=== PATIENT | female | born 1990 | race Caucasian/White ===

== ENCOUNTER 2019-04-08 17:31 | Emergency (ER) | payer BC, MEDICAID, SELFPAY ==
[2019-04-08 17:56] VITALS: BP 144/106; PULSE 80; RESP 20; TEMP 36.8; O2SAT 98
--- NOTE | 2019-04-08 18:41 | ED.GENADULT ---
HPI - General Adult General Chief complaint: Upper Respiratory Infection <Live Weaver PA-C - Last Filed: 04/08/19 19:02> Stated complaint: URI SX <Live Weaver PA-C - Last Filed: 04/08/19 19:02> Time Seen by Provider: 04/08/19 18:07 <Live Weaver PA-C - Last Filed: 04/08/19 19:02> Source: patient <IFEOMA Dodson Last Filed: 04/08/19 19:02> Mode of arrival: ambulatory <Live Weaver PA-C - Last Filed: 04/08/19 19:02> Limitations: no limitations <Live Weaver PA-C - Last Filed: 04/08/19 19:02> History of Present Illness HPI narrative: Patient is a 28-year-old female who presents with 4 days duration of fever chills body aches cough ear pain denies any vomiting does note that it she has had a few loose stools. <Live Weaver PA-C - Last Filed: 04/08/19 19:02> Related Data Allergies/adverse reactions: Allergies Allergy/AdvReac Type Severity Reaction Status Date / Time amoxicillin Allergy Unknown RASH, Verified 12/13/17 18:02 DIFFICULTY BREATHING <Live Weaver PA-C - Last Filed: 04/08/19 19:02> Review of Systems Review of Systems: All systems reviewed & are unremarkable except as noted in HPI and below <Live Weaver PA-C - Last Filed: 04/08/19 19:02> [facility] Past Medical History Medical History: Medical History (Updated 04/08/19 @ 19:01 by Live Weaver PA-C) Diabetes mellitus Influenza Obesity <Live Weaver PA-C - Last Filed: 04/08/19 19:02> Exam Narrative: Exam Narrative: GENERAL: Well-appearing, obese, and in no acute distress. HEAD: Normocephalic, atraumatic. EYES: PERRLA and EOMI. ENT: Nares clear, no rhinorrhea or epistaxis. Mucous membranes moist. Oropharynx without tonsillar hypertrophy exudate or other lesions. Bilateral TMs pearly nielsen nonbulging CHEST: Clear to auscultation. No respiratory distress. No wheezes rales or rhonchi HEART: Regular rate and rhythm. No murmur heard. EXTREMITIES: Normal range of motion. No edema. SKIN: Warm, dry, no rash. NEURO: No focal deficits. Alert and oriented x3. PSYCH: Normal mood and affect. <Live Weaver PA-C - Last Filed: 04/08/19 19:02> Course Course Emergency Course: Patient in the room in no distress <Live Weaver PA-C - Last Filed: 04/08/19 19:02> Vital Signs Vital signs: Vital Signs Temperature 98.2 F 04/08/19 17:56 Pulse Rate 80 04/08/19 17:56 Respiratory Rate 20 04/08/19 17:56 Blood Pressure 144/106 H 04/08/19 17:56 Pulse Oximetry 98 04/08/19 17:56 Temperature 98.2 F 04/08/19 17:56 Pulse Rate 80 04/08/19 17:56 Respiratory Rate 20 04/08/19 17:56 Blood Pressure 144/106 H 04/08/19 17:56 Pulse Oximetry 98 04/08/19 17:56 <Live Weaver PA-C - Last Filed: 04/08/19 19:02> Vital Signs Temperature 98.2 F 04/08/19 17:56 Pulse Rate 80 04/08/19 17:56 Respiratory Rate 20 04/08/19 17:56 Blood Pressure 144/106 H 04/08/19 17:56 Pulse Oximetry 98 04/08/19 17:56 Temperature 98.2 F 04/08/19 17:56 Pulse Rate 80 04/08/19 17:56 Respiratory Rate 20 04/08/19 17:56 Blood Pressure 144/106 H 04/08/19 17:56 Pulse Oximetry 98 04/08/19 17:56 <Shana Montenegro MD - Last Filed: 04/08/19 22:05> Medical Decision Making MDM Narrative Medical decision making narrative: Patient with influenza in the room afebrile nontoxic-appearing no distress felt appropriate for outpatient reevaluation <IFEOMA Dodson Last Filed: 04/08/19 19:02> Vital Signs Vital Signs: Vital Signs Temperature 98.2 F 04/08/19 17:56 Pulse Rate 80 04/08/19 17:56 Respiratory Rate 20 04/08/19 17:56 Blood Pressure 144/106 H 04/08/19 17:56 Pulse Oximetry 98 04/08/19 17:56 Temperature 98.2 F 04/08/19 17:56 Pulse Rate 80 04/08/19 17:56 Respiratory Rate 20 04/08/19 17:56 Blood Pressure 144/106 H 04/08/19 17:56 Pulse Oximetry 98
== END 2019-04-08 19:09 | disposition home or self-care (01) ==
PROVIDERS: Emergency Provider General Practice; PCP Internal Medicine
DX: J10.1 Influenza due to other identified influenza virus with other respiratory manifestations (principal); E11.9 Type 2 diabetes mellitus without complications; E66.9 Obesity, unspecified; Z68.45 Body mass index [BMI] 70 or greater, adult
CPT/HCPCS: 87081; 87804; 87880; 99283

== ENCOUNTER 2019-04-10 08:32 | Inpatient (IN) | payer BC, MEDICAID, SELFPAY ==
[2019-04-10] VITALS (31 sets, daily range): BP systolic 116–173; BP diastolic 45–109; PULSE 95–127; RESP 24–54; TEMP 37.2–38.6; O2SAT 80–98; BMI 95.5
--- NOTE | ~2019-04-10 | XR_ITS ---
EXAMINATION: XR chest port-a-cath/central EXAM DATE: 04/10/2019 15:56 INDICATION: Central line placement. Respiratory failure. TECHNIQUE: Portable AP frontal chest x-ray was obtained. Comparison is made to prior examination from earlier same date. FINDINGS: There is a new right IJ venous line overlying expected position. Endotracheal and nasogast juan tubes are also in position. Again there is extensive bilateral edema and/or pneumonia. There are no sizable pleural effusions. There is no pneumothorax suspected. Cardiac silhouette is enlarged but stable in size compared to prior exam. The bones and soft tissues are unremarkable. IMPRESSION: 1. No evidence postprocedure pneumothorax. 2. Extensive bilateral edema and/or pneumonia. 3. Cardiomegaly. Reviewed, dictated and finalized at location A. R LINEMAN TECHNICIAN
--- NOTE | ~2019-04-10 | XR_ITS ---
EXAMINATION: XR chest 1V portable INDICATION: Pneumonia TECHNIQUE: Portable AP chest at 0503 hours COMPARISON: 04/14/2019 FINDINGS: The endotracheal tube ends approximately 8.4 cm above the edward. The nasogastric tube is f ollowed as far as the stomach. Its tip is beyond the inferior margin of the radiograph. A right inter nal jugular central venous catheter ends with its tip at the superior cavoatrial junction. There is s table cardiomegaly. Diffuse airspace opacities persist but have improved. No definite pleural effusio n or pneumothorax is identified. IMPRESSION: 1. Diffuse lung disease with interval improvement, consistent with pulmonary edema and/or pneumonia a nd/ARDS. 2. Endotracheal tube approximately 8.4 cm above the edward. Consider advancing. 3. Stable cardiomegaly. Reviewed, dictated and finalized at location A. ARCHITECT IMPRESSION: 1. Diffuse lung disease with interval improvement, consistent with pulmonary ed arabella and/or pneumonia and/ARDS. 2. Endotracheal tube approximately 8.4 cm above the edward. Consider advancing. 3. Stable cardiomegaly.
--- NOTE | ~2019-04-10 | XR_ITS ---
EXAMINATION: XR chest 1V portable DATE: 04/12/2019 05:56 INDICATION: Pneumonia. TECHNIQUE: A single frontal view of the chest was obtained. COMPARISON: Chest single view 04/11/2019, CT abdomen and pelvis 12/06/2016 FINDINGS: There are airspace opacities in all lung zones bilaterally. No pleural effusion or pneumoth orax. Cardiomegaly is noted. The endotracheal tube tip is 5.4 cm above the edward. The nasogastric tu be tip is in the stomach. A right internal jugular central venous catheter is seen with tip at the barakat perior cavoatrial junction. IMPRESSION: 1. Diffuse lung disease with slight improvement on the right, consistent with pulmonary edema versus pneumonia versus acute respiratory distress syndrome (ARDS). 2. Cardiomegaly. Reviewed, dictated and finalized at location A. ON ACREAGE MEASURER IMPRESSION: 1. Diffuse lung disease with slight improvement on the right, consistent with p ulmonary edema versus pneumonia versus acute respiratory distress syndrome (INA S). 2. Cardiomegaly.
--- NOTE | ~2019-04-10 | XR_ITS ---
EXAMINATION: XR chest 1V portable INDICATION: Repositioned endotracheal tube TECHNIQUE: Portable AP chest at 0809 hours COMPARISON: 0503 hours FINDINGS: The repositioned endotracheal tube ends 4.1 cm from the edward. The nasogastric tube is in the stomach. A right internal jugular central venous catheter ends with its tip in the distal superio r vena cava. Diffuse airspace opacities persist without significant change. No definite pleural effus ion or pneumothorax is identified. There is stable cardiomegaly. IMPRESSION: 1. Endotracheal tube advanced, now ending 4.1 cm above the edward. Otherwise, no significant change. Reviewed, dictated and finalized at location A. ILE FINISHER IMPRESSION: 1. Endotracheal tube advanced, now ending 4.1 cm above the edward. Otherwise, n o significant change.
--- NOTE | ~2019-04-10 | XR_ITS ---
EXAMINATION: XR chest 1V portable EXAM DATE: 04/10/2019 09:34 INDICATION: Shortness of breath. Flu. TECHNIQUE: Portable AP frontal chest x-ray was obtained. Comparison is made to prior examination from 10/01/2017. FINDINGS: There is cardiomegaly. There is extensive bilateral edema or pneumonia. No pneumothorax or sizable pleural effusion. Airspace disease is new compared to prior study. There are no osseous abnor malities identified. IMPRESSION: Cardiomegaly. Extensive bilateral edema or pneumonia. Reviewed, dictated and finalized at location A. SPORTATION SECURITY SCREENER
--- NOTE | ~2019-04-10 | XR_ITS ---
XR chest 1V portable 04/14/2019 05:40 Indication: Pneumonia. Procedure: AP portable chest Comparison: Comparison to multiple prior studies sequentially, with oldest reviewed study dated 04/10. Findings: Endotracheal tube tip approximately 5.9 cm above the edward. NG tube in the stomach. Right IJ central line tip in the SVC. Extensive bilateral airspace disease. Probable small effusions. No pn eumothorax. Impression: 1: No significant change to extensive bilateral airspace disease, most likely edema. Differential shellie gnosis includes pneumonia and ARDS. Reviewed, dictated and finalized at location A. SUPPORT REPRESENTATIVE Impression: 1: No significant change to extensive bilateral airspace disease, most likely e lucie. Differential diagnosis includes pneumonia and ARDS.
--- NOTE | ~2019-04-10 | XR_ITS ---
EXAMINATION: XR abdomen NG/feed tube insert EXAM DATE: 04/10/2019 13:59 INDICATION: Feeding tube placement. TECHNIQUE: Frontal projection(s) of the abdomen for interpretation. There is no prior study for elizabeth boswell. FINDINGS: Feeding tube tip overlies gastric antral region, adequate. There is suspicion of hepatospl enomegaly. Upper abdominal bowel gas pattern is unremarkable. Extensive airspace disease. IMPRESSION: 1. Feeding tube in position. 2. Suspicion of hepatosplenomegaly. Reviewed, dictated and finalized at location A. TIC TOY INVENTOR
--- NOTE | ~2019-04-10 | XR_ITS ---
EXAMINATION: XR chest ET placement EXAM DATE: 04/10/2019 13:59 INDICATION: Intubated, respiratory failure. TECHNIQUE: Portable AP frontal chest x-ray was obtained. Comparison is made to prior examination from earlier same day. FINDINGS: Endotracheal tube tip is 3-4 centimeters above the edward (ideal range is between 2 to 5 cm ). There is a nasogastric tube seen with tip collimated off the study, but below the left hemidiaphr agm. Extensive bilateral pneumonia and/or edema. There are no sizable pleural effusions. There is no pn eumothorax suspected. The cardiac silhouette is enlarged. The bones and soft tissues are unremark able. There is no significant interval change in airspace disease compared to prior exam. IMPRESSION: 1. ET tube in position. 2. Extensive bilateral edema and/or pneumonia. Reviewed, dictated and finalized at location A. TRIC OPERATOR
--- NOTE | ~2019-04-10 | XR_ITS ---
EXAMINATION: XR chest 1V portable INDICATION: Pneumonia TECHNIQUE: Portable AP chest at 0513 hours COMPARISON: 04/12/2019 FINDINGS: The endotracheal tube ends approximately 4.2 cm above the edward. The nasogastric tube is f ollowed as far as the stomach. Its tip is beyond the inferior margin of the radiograph. A right inter nal jugular central venous catheter ends with its tip at the superior cavoatrial junction. There is s table cardiomegaly. Diffuse airspace opacities persist with slight improvement in the left upper lung zone. No definite pleural effusion or pneumothorax is identified. IMPRESSION: 1. Diffuse lung disease with slight improvement in the left upper lung zone, consistent with pulmonar y edema and/or pneumonia and/or ARDS. 2. Stable cardiomegaly. Reviewed, dictated and finalized at location A. RAL PROCESSING TECHNICIAN IMPRESSION: 1. Diffuse lung disease with slight improvement in the left upper lung zone, co nsistent with pulmonary edema and/or pneumonia and/or ARDS. 2. Stable cardiomegaly.
--- NOTE | ~2019-04-10 | XR_ITS ---
EXAMINATION: XR chest 1V portable DATE: 04/11/2019 06:03 INDICATION: Pneumonia. TECHNIQUE: A single frontal view of the chest was obtained. COMPARISON: Chest single view 04/10/2019, CT abdomen and pelvis 12/06/2016 FINDINGS: Lung volumes are small. There are airspace opacities in all lung zones bilaterally. No pleu ral effusion or pneumothorax. The heart size is normal. The endotracheal tube tip is 4.6 cm above the edward. A right internal jugular central venous catheter is seen with tip at the superior cavoatrial junction. The nasogastric tube tip is beyond the inferior margin of the radiograph, but at least to the stomach. IMPRESSION: 1. Unchanged diffuse lung disease, consistent with pulmonary edema versus pneumonia versus acute resp iratory distress syndrome (ARDS). Reviewed, dictated and finalized at location A. ENTER WOODEN TANK ERECTING IMPRESSION: 1. Unchanged diffuse lung disease, consistent with pulmonary edema versus pneum onia versus acute respiratory distress syndrome (ARDS).
--- NOTE | 2019-04-10 08:52 | ED.SOB ---
HPI - SOB/Dyspnea General Chief Complaint: Shortness of Breath/Dyspnea Stated Complaint: SOB and chest pressure Time Seen by Provider: 04/10/19 08:41 Source: patient and RN notes reviewed Mode of arrival: ambulatory Limitations: no limitations History of Present Illness HPI Narrative: A 28 y/o female presents to the ED with worsening SOB for the past 2 days. She reports an associative cough. She denies any CP, N/V/D, or ABD pain. MD elicited complaint: shortness of breath Pertinent past history: asthma and diabetes Onset (ago): day(s) (2) Timing: progressively worsening Known history of: asthma and diabetes Associated symptoms: cough Related Data Allergies Allergy/AdvReac Type Severity Reaction Status Date / Time amoxicillin Allergy Unknown RASH, Verified 12/13/17 18:02 DIFFICULTY BREATHING Review of Systems Review of Systems: All systems reviewed & are unremarkable except as noted in HPI and below Cardiovascular: Cardiovascular: Denies chest pain Respiratory: Respiratory: Reports cough and Reports dyspnea Gastrointestinal: Gastrointestinal: Denies abdominal pain, Denies diarrhea, Denies nausea and Denies vomiting PMF Past Medical History Medical History Asthma Depression Diabetes mellitus GERD (gastroesophageal reflux disease) H/O: HTN (hypertension) Hypothyroid Influenza Obesity Sleep apnea Surgical History Surgical History No history of previous surgery Family History Family History (Updated 04/10/19 @ 12:41 by Tono Frank MD) Mother Diabetes mellitus Social History Social History (Updated 04/10/19 @ 12:42 by Tono Frank MD) Smoking packs per day: 1 Smoking cigarettes per day: 20.0 Smoking status: Current every day smoker Tobacco type: cigarettes Alcohol intake: current Drinks per week: 5 Alcohol use details: Drinks only occasionally Substance use: never Living arrangements: with family Gender identity (if verbalized by the patient): Female Spiritual care concerns: No Agree to blood products: Yes Exam Narrative: Exam Narrative: GENERAL: Well-appearing,MOrbidly obese , and in no acute distress. HEAD: Normocephalic, atraumatic. EYES: PERRLA and EOMI. ENT: Nares clear, . Mucous membranes moist. NECK: Supple. CHEST: Poor respiratory effort, decreased air entry HEART: Regular rate and rhythm. No murmur heard. Normal peripheral pulses. ABDOMEN: Soft, morbid truncal obesity. EXTREMITIES: Normal range of motion. No edema. SKIN: Warm, dry, no rash. NEURO: No focal deficits. Alert and oriented x3. PSYCH: Normal mood and affect. Course Course Emergency Course: Inform patient about her lab work, chest x-ray findings will admit her to intensive care unit. As patient is tachypneic as well as hypoxic Consultations Consultation #1: Discussed case with Dr. Frank (Hospitalist). Accpets the pt. Date: 04/10/19 Time: 10:20 Consultation #2: Discussed case with Dr. Conner (American Indian Studies Professor). Accepts the pt to the ICU. Date: 04/10/19 Time: 11:06 Vital Signs Vital signs: Vital Signs Temperature 38.1 C H 04/10/19 08:44 Pulse Rate 124 H 04/10/19 08:44 Respiratory Rate 32 H 04/10/19 08:44 Blood Pressure 173/96 H 04/10/19 08:44 Pulse Oximetry 80 L 04/10/19 08:44 Temperature 38.1 C H 04/10/19 08:44 Pulse Rate 106 H 04/10/19 13:08 Respiratory Rate 38 H 04/10/19 13:08 Blood Pressure 137/65 04/10/19 13:08 Pulse Oximetry 94 04/10/19 13:08 MDM - SOB/Dyspnea Lab Data Result diagrams: 04/10/19 09:09 04/10/19 09:09 Labs: Lab Results 04/10/19 04/10/19 04/10/19 Range/Units 09:09 09:09 10:20 WBC 3.5 L (4.5-10.0) K/mm3 RBC 4.88 (4.2-5.4) M/mm3 Hgb 12.7 (12.0-15.0) g/dL Hct 42.1 (37.0-47.0) % MCV 86.3 (80-100) fl MCH 26.0 (26-34) pg MCHC 30.2 L (32-36) g/dl
[2019-04-10] MEDS: IPRATROPIUM BR 0.02% INH SOLN 0.5 MG/2.5 ML VIAL INHALATION ×3 (09:20→20:31)
[2019-04-10] MEDS: ALBUTEROL SULFATE NEB 2.5 MG/0.5 ML INH 5 MG INHALATION ×3 (09:20→20:31)
[2019-04-10 09:22] LABS: Basophils Percent Auto 0.3 % (0.2-1.2); Hematocrit 42.1 % (37.0-47.0); Hemoglobin 12.7 g/dL (12.0-15.0); Immature Granulocyte Absolute 0.06 K/mm3 (0.00-0.031); Immature Granulocyte Percent A 1.7 % (0-0.5); Lymphocytes Absolute Auto 0.68 K/mm3 (0.9-3.2); Lymphocytes Percent Auto 19.3 % (18.3-44.2); Mean Corpuscular HGB Conc 30.2 g/dl (32-36); Mean Corpuscular Volume 86.3 fl (80-100); Mean Platelet Volume 12.3 fl (7.4-10.4); Monocytes Absolute Auto 0.1 K/mm3 (0.1-0.6); Monocytes Percent Auto 2.8 % (2.6-8.5); Neutrophils Absolute Auto 2.7 K/mm3 (1.3-6.7); Neutrophils Percent Auto 75.9 % (45.5-73.1); Platelet Count Result 176 k/mm3 (150-375); Red Blood Count 4.88 M/mm3 (4.2-5.4); Red Cell Distribution Width 14.1 % (11.5-14.5); White Blood Count 3.5 K/mm3 (4.5-10.0)
[2019-04-10 09:38] LABS: Alanine Aminotransferase 25 U/L (4-35); Albumin Level 3.9 g/dL (3.5-5.1); Alkaline Phosphatase 109 U/L (38-126); Aspartate Amino Transferase 43 U/L (14-36); Bilirubin,Total 0.3 mg/dL (0.2-1.3); Blood Urea Nitrogen 7 mg/dL (7-17); Calcium 8.6 mg/dL (8.4-10.2); Carbon Dioxide 25 mmol/L (22-30); Chloride 97 mmol/L (98-107); Estimated Glomerular Filt Rate > 60; Glucose 264 mg/dL (65-105); Potassium 4.5 mmol/L (3.4-5.0); Sodium 136 mmol/L (137-145)
[2019-04-10 09:40] LABS: NT Pro B Type Natriuretic Pept 143 PG/ML (5-100)
[2019-04-10] MEDS: methylPREDNISolone SOD SUCC 125 MG VIAL IV PUSH (10:24)
[2019-04-10 10:47] LABS: Lactic Acid 1.2 mmol/L (0.7-2.1)
[2019-04-10 11:12] LABS: Alveolar/Arterial O2 Gradient 228.1 mmHg; Fractional Inspired Oxygen 44 %; HCO3 ABG 22.2 mEq/l (22.0-26.0); Oxygen Content ABG 14.9 %vol (16.0-22.0); Oxyhemoglobin 80.9 % THb (90.0-100.0); PCO2 ABG 36.2 mmHg (35.0-45.0); PO2 FiO2 Ratio Arterial Blood 1.01 %; Total Hemoglobin 13.1 g/dL (12.0-18.0); pH ABG 7.405 (7.350-7.450)
[2019-04-10 11:15] LABS: Device NASAL CANNULA; Modified Allen's Test Pass; PO2 ABG 44.4 mmHg (80.0-100.0); Site Drawn RIGHT RADIAL
--- NOTE | 2019-04-10 11:40 | PC.NURSE ---
Called to give report. Spoke with Sonia who states that the receiving nurse was in another room and will call me back.
--- NOTE | 2019-04-10 12:34 | PM.IMHP ---
H&P: HPI History of Present Illness Chief complaint: pneumonia Narrative: Claudia Delgado is a 28 year old female who was in her usual state of health until about 1 week ago. She began to have cough congestion and mild chest pain with coughing. She had hot flashes but no documented fevers. No chills. No sweats. Because of the persistent cough that was worsening and productive of green sputum she went to an urgent care where she was diagnosed with influenza B. Because the length of her symptoms she was treated symptomatically. She developed diarrhea a few times each day but no nausea vomiting. However she continued to worsen. Sputum thickened. Chest was hurting more with coughing. She was more short of breath even at rest. Therefore she presented to the emergency department. 1-2 weeks ago her niece had pneumonia and she was exposed to the knees. The knees were reportedly did not have influenza. She does smoke 1 pack per day. She denied any recent travel. She denied any hemoptysis, palpitations, syncope, presyncope, or lower extremity swelling. Review of Systems Review of Systems: All systems reviewed & are unremarkable except as noted in HPI and below PMFSH Past Medical History Medical History Asthma Depression Diabetes mellitus GERD (gastroesophageal reflux disease) H/O: HTN (hypertension) Hypothyroid Influenza Obesity Sleep apnea Surgical History Surgical History No history of previous surgery Family History Family History (Updated 04/10/19 @ 12:41 by Tono Frank MD) Mother Diabetes mellitus Social History Social History (Updated 04/10/19 @ 12:42 by Tono Frank MD) Smoking packs per day: 1 Smoking cigarettes per day: 20.0 Smoking status: Current every day smoker Tobacco type: cigarettes Alcohol intake: current Alcohol use details: Drinks only occasionally Substance use: never Living arrangements: with family Meds Home Medications and Allergies Home Medications Medication Instructions Recorded Confirmed Type ibuprofen [IBU] 600 mg PO TID PRN #7 tablet 04/08/19 Rx Allergies Allergy/AdvReac Type Severity Reaction Status Date / Time amoxicillin Allergy Unknown RASH, Verified 12/13/17 18:02 DIFFICULTY BREATHING Vital Signs Vital Signs - 24 hr 04/10/19 08:44 04/10/19 08:48 04/10/19 08:55 Temperature 100.6 F H Pulse Rate 124 H 124 H 121 H Respiratory Rate 32 H 37 H Blood Pressure 173/96 H Pulse Oximetry 80 L 86 L 04/10/19 09:00 04/10/19 09:01 04/10/19 09:02 Temperature Pulse Rate 123 H 123 H 121 H Respiratory Rate 45 H 29 H 38 H Blood Pressure 165/109 H Pulse Oximetry 83 L 89 L 87 L 04/10/19 09:23 04/10/19 09:26 04/10/19 11:16 Temperature Pulse Rate 124 H 127 H 115 H Respiratory Rate 28 H 25 H 45 H Blood Pressure 149/83 H Pulse Oximetry 94 Exam Narrative: Exam Narrative: GENERAL: Morbidly obese young adult female who is in moderate degree of respiratory distress and wearing a BiPAP mask HEENT: EOMI, PERRL, pharyngeal mucosa pink and intact NECK: No JVD, adenopathy, or thyromegaly CHEST: Tachypneic. Coarse rhonchi and expiratory wheezes throughout. Scattered crackles. HEART: NL S1/S2, regular, no murmur ABDOMEN: BS+, soft, nontender, no mass, no bruits EXTREMITIES: No cyanosis, edema, or clubbing NEUROLOGIC: CN intact and symmetric to inspection. MUSCULOSKELETAL: Tone and strength symmetric. PSYCH: Alert. Oriented to person, place, and time. H&P: Results Labs Labs: Short CBC 04/10/19 Range/Units 09:09 WBC 3.5 L (4.5-10.0) K/mm3 Hgb 12.7 (12.0-15.0) g/dL Hct 42.1 (37.0-47.0) % Plt Count 176 (150-375) k/mm3 [facility] 04/10/19 09:09 Sodium 136 L Potassium 4.5 Chloride 97 L Carbon Dioxide 25 BUN 7 Creatinine 0.60 L Glucose 264 H Calcium 8.6 Liver F
--- NOTE | 2019-04-10 13:00 | ADMGEN ---
This patient, Claudia Delgado, was admitted to Intensive Care Unit-5. Patient/family oriented to hospital policies and general routines including ID bracelet, bed and alarms, visiting hours, pain management, procedures, bathroom and other care routines, personal items, smoking policy, room service/diet, and visiting hours. Valuables list has been completed. Information on how to activate the Rapid Response Team has been discussed. Patient/Family are encouraged to report perceived risks to care and to ask questions if they do not understand what they are told or what they should do.
--- NOTE | 2019-04-10 13:11 | WPDCNINT ---
Assessment and Plan Assessment and plan (1) Acute respiratory failure with hypoxemia: Code(s): J96.01 - Acute respiratory failure with hypoxia Status: Acute Assessment and Plan: patient presented with pneumonia, influenza B. Diffuse infiltrates on chest x-ray requiring intubation on 04/10/2019 - patient placed on low tidal volume and high peep strategy for possible ARDS physiology - patient on propofol and Versed infusion, will maintained RASS of -2 - ABGs have been ordered (2) Community acquired pneumonia: Qualifiers: Laterality: unspecified laterality Qualified Code(s): J18.9 - Pneumonia, unspecified organism Code(s): J18.9 - Pneumonia, unspecified organism Status: Acute Assessment and Plan: patient with community-acquired pneumonia, continue vancomycin and cefepime for now - likely post influenza pneumonia. - continues steroids - continue mechanical ventilation (3) Influenza B: Code(s): J10.1 - Influenza due to other identified influenza virus with other respiratory manifestations Status: Acute Assessment and Plan: patient given 1 dose of Peramivir (4) Hypothyroid: Qualifiers: Hypothyroidism type: acquired Qualified Code(s): E03.9 - Hypothyroidism, unspecified Code(s): E03.9 - Hypothyroidism, unspecified Status: Acute Assessment and Plan: will continue levothyroxine (5) Hypertension, essential: Code(s): I10 - Essential (primary) hypertension Status: Acute Assessment and Plan: will hold all anti hypertensives at this time (6) Diabetes mellitus: Qualifiers: Diabetes mellitus type: type 2 Diabetes mellitus senior living insulin use: without senior living use Diabetes mellitus complication status: with hyperglycemia Qualified Code(s): E11.65 - Type 2 diabetes mellitus with hyperglycemia Code(s): E11.9 - Type 2 diabetes mellitus without complications Status: Acute Assessment and Plan: Accu-Cheks and sliding scale insulin (7) DVT prophylaxis: Code(s): Z29.9 - Encounter for prophylactic measures, unspecified Status: Acute Assessment and Plan: Lovenox Additional Plan discussed with patient prior to intubation. Code status: Full code Critical care time spent: 54 minutes Due to a high probability of clinically significant, life threatening deterioration, the patient required my highest level of preparedness to intervene emergently and I personally spent this critical care time directly and personally managing the patient. This critical care time included obtaining a history; examining the patient; pulse oximetry; ordering and review of studies; arranging urgent treatment with development of a management plan; evaluation of patient's response to treatment; frequent reassessment; and discussions with other providers. It was exclusive of separately billable procedures and treating other patients and teaching time. Please see Assessment and Plan section and the rest of the note for further information on patient assessment and treatment Pharmacist In Charge Consult Note Consult date: 04/10/19 Time Seen: 13:01 Reason for consult: diffuse bilateral pneumonia, acute respiratory failure requiring intubation on 04/10/2019, Influenza B positive HPI: Claudia Delgado is a 28 year old female with past medical history of asthma, depression, anxiety, diabetes, GERD, history of essential hypertension, hyper hypothyroidism, sleep apnea presented to the ED on 04/10/2019 with complains of cough, congestion and difficulty breathing. She denies any fevers, chills or sweats. shortness of breath has been worsening with productive green sputum, patient went to an urgent care which she was diagnosed with influenza B. In the ED patient was given Peramivir IV 600 mg x 1 patient was placed on BiPAP she was hypoxic and transfer the ICU for further management. In the IC
--- NOTE | 2019-04-10 13:41 | PM.OP ---
Procedure Note - Brief Procedure Note - Brief Date of procedure: 04/10/19 Pre-op diagnosis: pneumonia Post-op diagnosis: same Procedure performed: emergent intubation Description of procedure: called to icu rm 5 emergently to intubate pt with respiratory failure. Attempt already made by ICU attending. Airway bloody, front incisors loose 80% out of gum. glidescope blade changed to mac 4. vent to 100%. good visualization with glidescope intubated one pass with stylet. vss. secured at 21cm. care assumed by icu attending. Implants: 7.5ett Surgeon: Reddy Avila MD Estimated blood loss (mL): 0 Complications: No immediate complications Condition: stable Disposition: ICU
[2019-04-10] MEDS: MIDAZOLAM HCL 50 MG in DEXTROSE 5% 90 ML IV CONT (14:45)
--- NOTE | 2019-04-10 15:36 | P.PCNBED_ITS ---
Procedures Central Line Placement: Right IJ: Discussed w/ patient and/or surrogate, the non-emergent placement of a central venous catheter, including its clinical necessity/indication & associated potential risks & complications.: Yes The patient and/or surrogate understand(s) and acknowledge(s) the need to proceed with central venous catheter insertion as an important element of the patient's clinical management.: Yes Emergently Placed - (Given emergent patient conditions, temporal constraints may not have permitted and aforementioned informed consent.): No Central Line Date: 04/10/19 Central Line Time: 15:37 Pre-procedural Time-Out was completed immediately before starting the procedure and confirmed: Patient Identification, Site, Procedure, Patient Position and the Availability of Requisite Equipment.: Yes Patient Position: supine Patient placed on monitor/pulse ox: Yes Provider Prep: mask, sterile gown, Max. sterile barrier precautions, cap and hand hygiene Central line prep: Chlorhexidine scrub Local anesthesia used: lidocaine 1% Amount of anesthesia used (ml): 3 Ultrasound used for placement: Yes Central line lumen inserted: triple Luxembourgish: 16 Length (cm): 16 Depth of Insertion (cm): 16 Post procedure: sutured in place, good blood return, all ports aspirated, flushed, capped, tegaderm, hemostatic disc, antimicrobial disc and aseptic technique maintained throughout procedure Post procedure x-ray: tip of catheter in good position and no pneumothorax seen Patient tolerated procedure: well Complications: none
[2019-04-10] MEDS: MIDAZOLAM HCL 2 MG/2 ML VIAL 4 MG ×2 (15:55→15:57)
[2019-04-10] MEDS: RAPID SEQUENCE INTUBATION KIT 1 EACH ×2 (15:55→15:57)
[2019-04-10] MEDS: MIDAZOLAM HCL 2 MG/2 ML VIAL (15:55)
[2019-04-10] MEDS: MIDAZOLAM HCL 2 MG/2 ML VIAL 10 MG IV PUSH (15:57)
[2019-04-10] MEDS: PROPOFOL IV EMULSION 100 ML 32.1 MG (15:59)
[2019-04-10] MEDS: INSULIN GLARGINE (*BKC) 100 UNITS/ML 33 UNITS SUB-Q (16:05)
[2019-04-10] MEDS: INSULIN ASPART (*BKC) 100 UNITS/ML SUB-Q (16:05)
[2019-04-10] MEDS: methylPREDNISolone SOD SUCC 125 MG VIAL 60 MG IV PUSH ×2 (16:10→21:25)
[2019-04-10 16:13] LABS: Glucose Point of Care 352 (65-105)
[2019-04-10 16:18] LABS: Alveolar/Arterial O2 Gradient 575.6 mmHg; Base Excess ABG -3.6 mEq/l (+/-2.0); Fractional Inspired Oxygen 100 %; HCO3 ABG 24.4 mEq/l (22.0-26.0); Oxygen Content ABG 18.1 %vol (16.0-22.0); Oxygen Saturation ABG 93.8 % (95.0-100.0); Oxyhemoglobin 93.3 % THb (90.0-100.0); PO2 ABG 80.4 mmHg (80.0-100.0); Total Hemoglobin 13.8 g/dL (12.0-18.0)
[2019-04-10 16:20] LABS: Device VENTILATOR; Modified Allen's Test Pass; Site Drawn RIGHT RADIAL
[2019-04-10 16:21] LABS: Arterial Blood Gas Minute Volume 0 LPM; Arterial Blood Gas PEEP 12 cmH2O; Arterial Blood Gas Pressure Support 0 cmH2O; Arterial Blood Gas Tidal Volume 350 ml; Arterial Blood Gas Vent Mode CMV; Arterial Blood Gas Ventilator rate 24 /MIN; Peak Inspiratory Pressure 0 cmH2O
[2019-04-10] MEDS: MIDAZOLAM HCL 50 MG in DEXTROSE 5% 90 ML 12 MG IV CONT (22:27)
[2019-04-10 23:59] LABS: Glucose Point of Care 390 (65-105)
[2019-04-11] VITALS (38 sets, daily range): BP systolic 105–129; BP diastolic 42–67; PULSE 93–131; RESP 24–29; TEMP 36.9–38.6; O2SAT 92–97; BMI 94.9
[2019-04-11] MEDS: INSULIN ASPART (*BKC) 100 UNITS/ML SUB-Q
[2019-04-11] MEDS: ALBUTEROL SULFATE NEB 2.5 MG/0.5 ML INH 5 MG INHALATION ×4 (02:47→20:29)
[2019-04-11] MEDS: IPRATROPIUM BR 0.02% INH SOLN 0.5 MG/2.5 ML VIAL INHALATION ×4 (02:47→20:30)
[2019-04-11] MEDS: methylPREDNISolone SOD SUCC 125 MG VIAL 60 MG IV PUSH ×2 (03:45→09:14)
[2019-04-11 04:23] LABS: Alveolar/Arterial O2 Gradient 506.4 mmHg; Carboxyhemoglobin 0.1 % THb (0-2.0); Fractional Inspired Oxygen 90 %; HCO3 ABG 25.6 mEq/l (22.0-26.0); Methemoglobin ABG 0.5 %THb (0-1.5); Oxygen Content ABG 18.1 %vol (16.0-22.0); Oxygen Saturation ABG 87.1 % (95.0-100.0); Oxyhemoglobin 90.9 % THb (90.0-100.0); PO2 ABG 65.1 mmHg (80.0-100.0); PO2 FiO2 Ratio Arterial Blood 0.72 %; Reduced Hemoglobin 8.5 %THb (0-5.0); Total Hemoglobin 14.2 g/dL (12.0-18.0)
[2019-04-11 04:26] LABS: Device VENTILATOR; Modified Allen's Test Pass; PCO2 ABG 68.5 mmHg (35.0-45.0); Site Drawn LEFT RADIAL; pH ABG 7.191 (7.350-7.450)
[2019-04-11 04:27] LABS: Arterial Blood Gas PEEP 12 cmH2O; Arterial Blood Gas Tidal Volume 350 ml; Arterial Blood Gas Vent Mode CMV; Arterial Blood Gas Ventilator rate 24 /MIN
[2019-04-11 05:09] LABS: Hematocrit 40.4 % (37.0-47.0); Hemoglobin 12.2 g/dL (12.0-15.0); Immature Granulocyte Absolute 0.05 K/mm3 (0.00-0.031); Immature Granulocyte Percent A 0.7 % (0-0.5); Lymphocytes Absolute Auto 0.57 K/mm3 (0.9-3.2); Lymphocytes Percent Auto 8.2 % (18.3-44.2); Mean Corpuscular HGB Conc 30.2 g/dl (32-36); Mean Corpuscular Hemoglobin 26.5 pg (26-34); Mean Corpuscular Volume 87.8 fl (80-100); Mean Platelet Volume 12.1 fl (7.4-10.4); Monocytes Absolute Auto 0.2 K/mm3 (0.1-0.6); Monocytes Percent Auto 2.9 % (2.6-8.5); Neutrophils Absolute Auto 6.1 K/mm3 (1.3-6.7); Neutrophils Percent Auto 88.2 % (45.5-73.1); Platelet Count Result 181 k/mm3 (150-375); Red Cell Distribution Width 13.9 % (11.5-14.5)
[2019-04-11 05:23] LABS: Lactic Acid 0.9 mmol/L (0.7-2.1)
[2019-04-11 05:28] LABS: Hemoglobin A1C 9.4 % (<5.7)
[2019-04-11 05:32] LABS: Blood Urea Nitrogen 13 mg/dL (7-17); Calcium 7.7 mg/dL (8.4-10.2); Carbon Dioxide 29 mmol/L (22-30); Chloride 94 mmol/L (98-107); Estimated Glomerular Filt Rate > 60; Glucose 467 mg/dL (65-105); Magnesium 1.9 mg/dL (1.6-2.3); Phosphorus 4.4 mg/dL (2.5-4.5); Potassium 5.6 mmol/L (3.4-5.0); Sodium 132 mmol/L (137-145)
[2019-04-11 05:59] LABS: Glucose Point of Care 453 (65-105)
[2019-04-11] MEDS: INSULIN ASPART (*BKC) 100 UNITS/ML 10 UNITS SUB-Q (06:16)
[2019-04-11] MEDS: MIDAZOLAM HCL 50 MG in DEXTROSE 5% 90 ML 12 MG IV CONT (06:54)
[2019-04-11 07:25] LABS: Glucose Point of Care 460 (65-105)
[2019-04-11] MEDS: INSULIN GLARGINE (*BKC) 100 UNITS/ML 33 UNITS SUB-Q (07:33)
[2019-04-11] MEDS: PANTOPRAZOLE SODIUM IV 40 MG VIAL IV PUSH (07:36)
[2019-04-11] MEDS: ENOXAPARIN 40 MG/0.4 ML SYRINGE SUB-Q (07:36)
[2019-04-11 07:38] LABS: Alveolar/Arterial O2 Gradient 513.1 mmHg; Base Excess ABG -2.1 mEq/l (+/-2.0); Fractional Inspired Oxygen 90 %; HCO3 ABG 25.8 mEq/l (22.0-26.0); Oxygen Content ABG 17.3 %vol (16.0-22.0); Oxygen Saturation ABG 90.8 % (95.0-100.0); Oxyhemoglobin 92.5 % THb (90.0-100.0); PCO2 ABG 58.5 mmHg (35.0-45.0); PO2 ABG 68.6 mmHg (80.0-100.0); PO2 FiO2 Ratio Arterial Blood 0.76 %; Total Hemoglobin 13.3 g/dL (12.0-18.0)
[2019-04-11 07:41] LABS: Device VENTILATOR; Modified Allen's Test Pass; Site Drawn RIGHT RADIAL; pH ABG 7.263 (7.350-7.450)
[2019-04-11 07:42] LABS: Arterial Blood Gas Minute Volume 0 LPM; Arterial Blood Gas PEEP 12 cmH2O; Arterial Blood Gas Pressure Support 0 cmH2O; Arterial Blood Gas Tidal Volume 350 ml; Arterial Blood Gas Vent Mode CMV; Arterial Blood Gas Ventilator rate 28 /MIN; Peak Inspiratory Pressure 0 cmH2O
[2019-04-11 08:06] LABS: Blood Urea Nitrogen 15 mg/dL (7-17); Calcium 7.7 mg/dL (8.4-10.2); Carbon Dioxide 29 mmol/L (22-30); Chloride 92 mmol/L (98-107); Estimated Glomerular Filt Rate > 60; Glucose 463 mg/dL (65-105); Potassium 5.6 mmol/L (3.4-5.0); Sodium 132 mmol/L (137-145)
--- NOTE | 2019-04-11 08:41 | P.PNIM_ITS ---
Progress Note: A&P Assessment and Plan (1) Community acquired pneumonia: Qualifiers: Laterality: unspecified laterality Qualified Code(s): J18.9 - Pneumonia, unspecified organism Code(s): J18.9 - Pneumonia, unspecified organism Status: Acute Assessment and Plan: * Post influenza B * This may be viral, secondary bacterial, or ARDS * Vancomycin, cefepime, 1 dose of Rapivab 04/10 * IV steroids * Bronchodilators * Ventilatory support * Pulmonary toilet (2) Acute respiratory failure with hypoxemia: Code(s): J96.01 - Acute respiratory failure with hypoxia Status: Acute Assessment and Plan: * Due to influenza B with possible postviral bacterial pneumonia, asthma exacerbation, possible ARDS * Tx as above (3) Asthma exacerbation: Qualifiers: Asthma severity: severe Asthma persistence: persistent Qualified Code(s): J45.51 - Severe persistent asthma with (acute) exacerbation Code(s): J45.901 - Unspecified asthma with (acute) exacerbation Status: Acute Assessment and Plan: * Due to influenza with superimposed pneumonia * Tx as above (4) Hypertension, essential: Code(s): I10 - Essential (primary) hypertension Status: Acute Assessment and Plan: * Hold antihypertensives and monitor (5) Influenza B: Code(s): J10.1 - Influenza due to other identified influenza virus with other respiratory manifestations Status: Acute Assessment and Plan: * Likely too late in the course for antivirals (6) Restrictive lung disease: Code(s): J98.4 - Other disorders of lung Status: Acute Assessment and Plan: * Due to morbid obesity (7) Sleep apnea: Qualifiers: Sleep apnea type: obstructive Qualified Code(s): G47.33 - Obstructive sleep apnea (adult) (pediatric) Code(s): G47.30 - Sleep apnea, unspecified Status: Acute Assessment and Plan: * ventilatory support (8) Hypothyroid: Qualifiers: Hypothyroidism type: acquired Qualified Code(s): E03.9 - Hypothyroidism, unspecified Code(s): E03.9 - Hypothyroidism, unspecified Status: Acute Assessment and Plan: * Continue levothyroxine (9) GERD (gastroesophageal reflux disease): Qualifiers: Esophagitis presence: esophagitis presence not specified Qualified Code(s): K21.9 - Gastro-esophageal reflux disease without esophagitis Code(s): K21.9 - Gastro-esophageal reflux disease without esophagitis Status: Acute Assessment and Plan: * PPI for GI prophylaxis (10) Diabetes mellitus: Qualifiers: Diabetes mellitus type: type 2 Diabetes mellitus hobber insulin use: without hobber use Diabetes mellitus complication status: with hyperglycemia Qualified Code(s): E11.65 - Type 2 diabetes mellitus with hyperglycemia Code(s): E11.9 - Type 2 diabetes mellitus without complications Status: Acute Assessment and Plan: * 04/10 Blood sugar up to 476 * IV insulin Subjective Date/time seen: 04/11/19 08:41 Interval history: Elective intubation last evening due to tachypnea with severe dyspnea hypoxia and diffuse pulmonary infiltrates. Currently sedated and paralyzed. Review of Systems Review of Systems: ROS unobtainable: unobtainable due to mental condition Exam Narrative: Exam Narrative: GENERAL: Morbidly obese young adult female HEENT: EOMI, PERRL, pharyngeal mucosa pink and intact. ET tube in place
--- NOTE | 2019-04-11 08:41 | PM.IMPN ---
Progress Note: A&P Assessment and Plan (1) Community acquired pneumonia: Qualifiers: Laterality: unspecified laterality Qualified Code(s): J18.9 - Pneumonia, unspecified organism Code(s): J18.9 - Pneumonia, unspecified organism Status: Acute Assessment and Plan: Post influenza B This may be viral, secondary bacterial, or ARDS Vancomycin, cefepime, 1 dose of Rapivab 04/10 IV steroids Bronchodilators Ventilatory support Pulmonary toilet (2) Acute respiratory failure with hypoxemia: Code(s): J96.01 - Acute respiratory failure with hypoxia Status: Acute Assessment and Plan: Due to influenza B with possible postviral bacterial pneumonia, asthma exacerbation, possible ARDS Tx as above (3) Asthma exacerbation: Qualifiers: Asthma severity: severe Asthma persistence: persistent Qualified Code(s): J45.51 - Severe persistent asthma with (acute) exacerbation Code(s): J45.901 - Unspecified asthma with (acute) exacerbation Status: Acute Assessment and Plan: Due to influenza with superimposed pneumonia Tx as above (4) Hypertension, essential: Code(s): I10 - Essential (primary) hypertension Status: Acute Assessment and Plan: Hold antihypertensives and monitor (5) Influenza B: Code(s): J10.1 - Influenza due to other identified influenza virus with other respiratory manifestations Status: Acute Assessment and Plan: Likely too late in the course for antivirals (6) Restrictive lung disease: Code(s): J98.4 - Other disorders of lung Status: Acute Assessment and Plan: Due to morbid obesity (7) Sleep apnea: Qualifiers: Sleep apnea type: obstructive Qualified Code(s): G47.33 - Obstructive sleep apnea (adult) (pediatric) Code(s): G47.30 - Sleep apnea, unspecified Status: Acute Assessment and Plan: ventilatory support (8) Hypothyroid: Qualifiers: Hypothyroidism type: acquired Qualified Code(s): E03.9 - Hypothyroidism, unspecified Code(s): E03.9 - Hypothyroidism, unspecified Status: Acute Assessment and Plan: Continue levothyroxine (9) GERD (gastroesophageal reflux disease): Qualifiers: Esophagitis presence: esophagitis presence not specified Qualified Code(s): K21.9 - Gastro-esophageal reflux disease without esophagitis Code(s): K21.9 - Gastro-esophageal reflux disease without esophagitis Status: Acute Assessment and Plan: PPI for GI prophylaxis (10) Diabetes mellitus: Qualifiers: Diabetes mellitus type: type 2 Diabetes mellitus mcc insulin use: without superintendent marine oil terminal use Diabetes mellitus complication status: with hyperglycemia Qualified Code(s): E11.65 - Type 2 diabetes mellitus with hyperglycemia Code(s): E11.9 - Type 2 diabetes mellitus without complications Status: Acute Assessment and Plan: 04/10 Blood sugar up to 476 IV insulin Subjective Date/time seen: 04/11/19 08:41 Interval history: Elective intubation last evening due to tachypnea with severe dyspnea hypoxia and diffuse pulmonary infiltrates. Currently sedated and paralyzed. Review of Systems Review of Systems: ROS unobtainable: unobtainable due to mental condition Exam Narrative: Exam Narrative: GENERAL: Morbidly obese young adult female HEENT: EOMI, PERRL, pharyngeal mucosa pink and intact. ET tube in place NECK: No JVD, adenopathy, or thyromegaly CHEST: Coarse rhonchi and expiratory wheezes throughout. Scattered crackles. HEART: NL S1/S2, regular, no murmur ABDOMEN: BS+, soft, nontender, no mass, no bruits EXTREMITIES: No cyanosis, edema, or clubbing NEUROLOGIC: CN intact and symmetric to inspection. MUSCULOSKELETAL: Tone and strength symmetric. PSYCH: Sedated Objective Data Vital Signs Vital Signs: Vital Signs - 24 hr 04/10/19 08:44 04/10/19 08:48 04/10
[2019-04-11] MEDS: SODIUM CHLORIDE 0.9% IV 1,000 ML 150 ML IV CONT (08:50)
[2019-04-11] MEDS: INSULIN HUMAN REGULAR (*BKC) 100 UNITS in SODIUM CHLORIDE 0.9% IV 99 ML 8.7 UNITS IV CONT (09:04)
[2019-04-11 09:10] LABS: Glucose Point of Care 497 (65-105)
[2019-04-11] MEDS: DORNASE ALFA INH SOLN 1 MG/ML 2.5 ML AMP 2.5 MG INHALATION ×2 (09:32→20:30)
[2019-04-11 09:58] LABS: Glucose Point of Care 480 (65-105)
[2019-04-11] MEDS: SODIUM BICARBONATE 8.4% 50 MEQ/50 ML VIAL IV PUSH (10:03)
[2019-04-11] MEDS: INSULIN HUMAN REGULAR (*BKC) 100 UNITS/ML 10 UNITS IV PUSH ×2 (10:03→13:08)
[2019-04-11] MEDS: DEXTROSE 50% 25 GM/50 ML SYRINGE IV PUSH (10:03)
[2019-04-11] MEDS: SODIUM POLYSTYRENE SULFONONATE 15 GM/60 ML BTL PO (10:03)
[2019-04-11] MEDS: ALBUTEROL SULFATE NEB 2.5 MG/0.5 ML INH 10 MG INHALATION (10:12)
[2019-04-11 10:57] LABS: Glucose Point of Care > 500 (65-105)
--- NOTE | 2019-04-11 11:59 | WPDINTPN ---
Progress Note: A&P Assessment and Plan (1) Acute respiratory failure with hypoxemia: Code(s): J96.01 - Acute respiratory failure with hypoxia Status: Acute Assessment and Plan: patient presented with pneumonia, influenza B. Diffuse infiltrates on chest x-ray requiring intubation on 04/10/2019. ARDS - patient placed on low tidal volume and high peep strategy for ARDS physiology - patient on Versed, fentanyl infusion for sedation and Nimbex for neuromuscular blockade - chest x-ray and ABGs reviewed, allow permissive hypercapnia (2) Community acquired pneumonia: Qualifiers: Laterality: unspecified laterality Qualified Code(s): J18.9 - Pneumonia, unspecified organism Code(s): J18.9 - Pneumonia, unspecified organism Status: Acute Assessment and Plan: patient with community-acquired pneumonia, continue vancomycin and cefepime for now - likely post influenza pneumonia. - will hold steroids - continue mechanical ventilation (3) Influenza B: Code(s): J10.1 - Influenza due to other identified influenza virus with other respiratory manifestations Status: Acute Assessment and Plan: patient given 1 dose of Peramivir (4) Hypothyroid: Qualifiers: Hypothyroidism type: acquired Qualified Code(s): E03.9 - Hypothyroidism, unspecified Code(s): E03.9 - Hypothyroidism, unspecified Status: Acute Assessment and Plan: will continue levothyroxine (5) Hypertension, essential: Code(s): I10 - Essential (primary) hypertension Status: Acute Assessment and Plan: will hold all anti hypertensives at this time (6) Diabetes mellitus: Qualifiers: Diabetes mellitus type: type 2 Diabetes mellitus longwall headgate operator insulin use: without longwall headgate operator use Diabetes mellitus complication status: with hyperglycemia Qualified Code(s): E11.65 - Type 2 diabetes mellitus with hyperglycemia Code(s): E11.9 - Type 2 diabetes mellitus without complications Status: Acute Assessment and Plan: patient hyperglycemic, will start insulin infusion. Steroids discontinued (7) DVT prophylaxis: Code(s): Z29.9 - Encounter for prophylactic measures, unspecified Status: Acute Assessment and Plan: Lovenox (8) Hyperkalemia: Code(s): E87.5 - Hyperkalemia Status: Acute Assessment and Plan: patient is hyperkalemic, will treat with insulin, D50, bicarb, albuterol nebs and Kayexalate - will recheck BMP in the afternoon Additional Plan discussed patient's mother and updated her with patient's condition and plan of care. I answered all questions Code status: Full code Critical care time spent: 41 minutes Due to a high probability of clinically significant, life threatening deterioration, the patient required my highest level of preparedness to intervene emergently and I personally spent this critical care time directly and personally managing the patient. This critical care time included obtaining a history; examining the patient; pulse oximetry; ordering and review of studies; arranging urgent treatment with development of a management plan; evaluation of patient's response to treatment; frequent reassessment; and discussions with other providers. It was exclusive of separately billable procedures and treating other patients and teaching time. Please see Assessment and Plan section and the rest of the note for further information on patient assessment and treatment Subjective Date/time seen: 04/11/19 11:59 Reason for consult: diffuse bilateral pneumonia, acute respiratory failure requiring intubation on 04/10/2019, Influenza B positive 04/11/2019: Patient remains intubated on CMV mode of ventilation, low tidal volume and high peep. 90% FiO2, patient is sedated with fentanyl, Versed infusions. Patient also paralyzed with Nimbex. Urine output has been good, potassium elevated to
[2019-04-11 12:01] LABS: Glucose Point of Care > 500 (65-105)
[2019-04-11 13:02] LABS: Glucose Point of Care > 500 (65-105)
[2019-04-11 13:07] LABS: Blood Urea Nitrogen 16 mg/dL (7-17); Calcium 7.6 mg/dL (8.4-10.2); Carbon Dioxide 28 mmol/L (22-30); Chloride 92 mmol/L (98-107); Estimated Glomerular Filt Rate > 60; Glucose 521 mg/dL (65-105); Sodium 133 mmol/L (137-145)
[2019-04-11] MEDS: SODIUM CHLORIDE 0.9% IV 1,000 ML 75 ML IV CONT (14:11)
[2019-04-11] MEDS: INSULIN HUMAN REGULAR (*BKC) 100 UNITS in SODIUM CHLORIDE 0.9% IV 99 ML 29.5 UNITS IV CONT (14:16)
[2019-04-11 14:21] LABS: Glucose Point of Care 481 (65-105)
[2019-04-11 15:00] LABS: Glucose Point of Care 370 (65-105)
[2019-04-11 15:57] LABS: Glucose Point of Care 423 (65-105)
[2019-04-11] MEDS: CEFEPIME 2 GM in SODIUM CHLORIDE 0.9% IV 50 ML 100 ML IVPB (16:06)
[2019-04-11 17:01] LABS: Glucose Point of Care 370 (65-105)
[2019-04-11] MEDS: INSULIN HUMAN REGULAR (*BKC) 100 UNITS in SODIUM CHLORIDE 0.9% IV 99 ML 31 UNITS IV CONT (17:43)
[2019-04-11 17:59] LABS: Glucose Point of Care 339 (65-105)
[2019-04-11 18:56] LABS: Glucose Point of Care 301 (65-105)
[2019-04-11] MEDS: INSULIN GLARGINE (*BKC) 100 UNITS/ML 30 UNITS SUB-Q (20:13)
[2019-04-11 20:23] LABS: Glucose Point of Care 267 (65-105)
[2019-04-11] MEDS: INSULIN HUMAN REGULAR (*BKC) 100 UNITS in SODIUM CHLORIDE 0.9% IV 99 ML 26.9 UNITS IV CONT (20:54)
[2019-04-11 21:04] LABS: Glucose Point of Care 218 (65-105)
[2019-04-11] MEDS: KCL 20 MEQ/D5/0.45% SOD CHL 1,000 ML 75 ML IV CONT (21:07)
[2019-04-11 22:18] LABS: Glucose Point of Care 188 (65-105)
[2019-04-11 22:55] LABS: Glucose Point of Care 170 (65-105)
[2019-04-11 23:49] LABS: Glucose Point of Care 144 (65-105)
[2019-04-12] VITALS (36 sets, daily range): BP systolic 96–118; BP diastolic 41–68; PULSE 78–100; RESP 26–28; TEMP 37.1–38.3; O2SAT 95–100
[2019-04-12 00:15] LABS: Vancomycin Trough 11.8 ug/mL (10.0-20.0)
[2019-04-12] MEDS: CEFEPIME 2 GM in SODIUM CHLORIDE 0.9% IV 50 ML 100 ML IVPB ×3 (00:17→16:39)
[2019-04-12] MEDS: VANCOMYCIN HCL 2,000 MG in SODIUM CHLORIDE 0.9% IV 500 ML 250 MG IVPB ×2 (00:17→12:09)
[2019-04-12 01:03] LABS: Glucose Point of Care 119 (65-105)
[2019-04-12 01:54] LABS: Glucose Point of Care 115 (65-105)
[2019-04-12] MEDS: INSULIN HUMAN REGULAR (*BKC) 100 UNITS in SODIUM CHLORIDE 0.9% IV 99 ML 8.3 UNITS IV CONT (02:00)
[2019-04-12 02:56] LABS: Glucose Point of Care 109 (65-105)
[2019-04-12 03:59] LABS: Glucose Point of Care 113 (65-105)
[2019-04-12 05:07] LABS: Glucose Point of Care 99 (65-105)
[2019-04-12 05:41] LABS: Alveolar/Arterial O2 Gradient 401.5 mmHg; Base Excess ABG 0.9 mEq/l (+/-2.0); Carboxyhemoglobin 0.3 % THb (0-2.0); Device VENTILATOR; Fractional Inspired Oxygen 90 %; HCO3 ABG 26.4 mEq/l (22.0-26.0); Methemoglobin ABG 0.5 %THb (0-1.5); Modified Allen's Test Pass; Oxygen Content ABG 17.6 %vol (16.0-22.0); Oxygen Saturation ABG 99.3 % (95.0-100.0); Oxyhemoglobin 97.8 % THb (90.0-100.0); PCO2 ABG 45.8 mmHg (35.0-45.0); PO2 ABG 193.3 mmHg (80.0-100.0); PO2 FiO2 Ratio Arterial Blood 2.15 %; Reduced Hemoglobin 1.4 %THb (0-5.0); Site Drawn RIGHT RADIAL; Total Hemoglobin 12.5 g/dL (12.0-18.0); pH ABG 7.379 (7.350-7.450)
[2019-04-12 05:42] LABS: Arterial Blood Gas PEEP 14 cmH2O; Arterial Blood Gas Tidal Volume 350 ml; Arterial Blood Gas Vent Mode CMV; Arterial Blood Gas Ventilator rate 28 /MIN
[2019-04-12 06:02] LABS: Glucose Point of Care 107 (65-105)
[2019-04-12 06:04] LABS: Lactic Acid 1.2 mmol/L (0.7-2.1)
[2019-04-12 06:06] LABS: Blood Urea Nitrogen 19 mg/dL (7-17); Calcium 7.5 mg/dL (8.4-10.2); Carbon Dioxide 30 mmol/L (22-30); Chloride 100 mmol/L (98-107); Estimated Glomerular Filt Rate > 60; Glucose 107 mg/dL (65-105); Magnesium 1.9 mg/dL (1.6-2.3); Phosphorus 1.9 mg/dL (2.5-4.5); Potassium 4.7 mmol/L (3.4-5.0); Sodium 136 mmol/L (137-145)
[2019-04-12] MEDS: LEVOTHYROXINE SODIUM INJ 100 MCG/5 ML VIAL 37.5 MCG IV PUSH (06:11)
[2019-04-12 06:40] LABS: Glucose Point of Care 112 (65-105)
[2019-04-12 06:54] LABS: Hematocrit 36.8 % (37.0-47.0); Hemoglobin 11.3 g/dL (12.0-15.0); Mean Corpuscular HGB Conc 30.7 g/dl (32-36); Mean Corpuscular Hemoglobin 26.3 pg (26-34); Mean Corpuscular Volume 85.6 fl (80-100); Mean Platelet Volume 11.7 fl (7.4-10.4); Platelet Count Result 198 k/mm3 (150-375); Red Cell Distribution Width 13.5 % (11.5-14.5); White Blood Count 5.5 K/mm3 (4.5-10.0)
[2019-04-12 07:48] LABS: Glucose Point of Care 110 (65-105)
[2019-04-12] MEDS: ENOXAPARIN 40 MG/0.4 ML SYRINGE SUB-Q (08:02)
[2019-04-12] MEDS: PANTOPRAZOLE SODIUM IV 40 MG VIAL IV PUSH (08:02)
[2019-04-12] MEDS: IPRATROPIUM BR 0.02% INH SOLN 0.5 MG/2.5 ML VIAL INHALATION ×3 (08:10→19:50)
[2019-04-12] MEDS: DORNASE ALFA INH SOLN 1 MG/ML 2.5 ML AMP 2.5 MG INHALATION ×2 (08:10→19:55)
[2019-04-12] MEDS: ALBUTEROL SULFATE NEB 2.5 MG/0.5 ML INH 5 MG INHALATION ×3 (08:10→19:50)
[2019-04-12] MEDS: INSULIN GLARGINE (*BKC) 100 UNITS/ML 15 UNITS SUB-Q ×2 (08:26→20:23)
[2019-04-12 08:53] LABS: Glucose Point of Care 107 (65-105)
[2019-04-12] MEDS: KCL 20 MEQ/D5/0.45% SOD CHL 1,000 ML 75 ML IV CONT ×2 (10:13→23:35)
[2019-04-12 10:21] LABS: Glucose Point of Care 117 (65-105)
--- NOTE | 2019-04-12 10:44 | P.PNIM_ITS ---
Progress Note: A&P Assessment and Plan (1) Community acquired pneumonia: Qualifiers: Laterality: unspecified laterality Qualified Code(s): J18.9 - Pneumonia, unspecified organism Code(s): J18.9 - Pneumonia, unspecified organism Status: Acute Assessment and Plan: * Post influenza B * This may be viral, secondary bacterial, or ARDS * Vancomycin, cefepime, 1 dose of Rapivab 04/10 * IV steroids * Bronchodilators * Ventilatory support * Pulmonary toilet * 04/12 CXR with slight improvement (2) Acute respiratory failure with hypoxemia: Code(s): J96.01 - Acute respiratory failure with hypoxia Status: Acute Assessment and Plan: * Due to influenza B with possible postviral bacterial pneumonia, asthma exacerbation, possible ARDS * Tx as above (3) Asthma exacerbation: Qualifiers: Asthma severity: severe Asthma persistence: persistent Qualified Code(s): J45.51 - Severe persistent asthma with (acute) exacerbation Code(s): J45.901 - Unspecified asthma with (acute) exacerbation Status: Acute Assessment and Plan: * Due to influenza with superimposed pneumonia * Tx as above (4) Hypertension, essential: Code(s): I10 - Essential (primary) hypertension Status: Acute Assessment and Plan: * Hold antihypertensives and monitor (5) Influenza B: Code(s): J10.1 - Influenza due to other identified influenza virus with other respiratory manifestations Status: Acute Assessment and Plan: * Likely too late in the course for antivirals (6) Restrictive lung disease: Code(s): J98.4 - Other disorders of lung Status: Acute Assessment and Plan: * Due to morbid obesity (7) Sleep apnea: Qualifiers: Sleep apnea type: obstructive Qualified Code(s): G47.33 - Obstructive sleep apnea (adult) (pediatric) Code(s): G47.30 - Sleep apnea, unspecified Status: Acute Assessment and Plan: * ventilatory support (8) Hypothyroid: Qualifiers: Hypothyroidism type: acquired Qualified Code(s): E03.9 - Hypothyroidism, unspecified Code(s): E03.9 - Hypothyroidism, unspecified Status: Acute Assessment and Plan: * Continue levothyroxine (9) GERD (gastroesophageal reflux disease): Qualifiers: Esophagitis presence: esophagitis presence not specified Qualified Code(s): K21.9 - Gastro-esophageal reflux disease without esophagitis Code(s): K21.9 - Gastro-esophageal reflux disease without esophagitis Status: Acute Assessment and Plan: * PPI for GI prophylaxis (10) Diabetes mellitus: Qualifiers: Diabetes mellitus type: type 2 Diabetes mellitus assisted insulin use: without assisted use Diabetes mellitus complication status: with hyperglycemia Qualified Code(s): E11.65 - Type 2 diabetes mellitus with hyperglycemia Code(s): E11.9 - Type 2 diabetes mellitus without complications Status: Acute Assessment and Plan: * 04/10 Blood sugar up to 476 * IV insulin Subjective Date/time seen: 04/12/19 10:44 Interval history: Elective intubation 04/10 due to tachypnea with severe dyspnea hypoxia and diffuse pulmonary infiltrates. Currently still sedated and paralyzed. Review of Systems Review of Systems: All systems reviewed & are unremarkable except as noted in HPI and below Exam Narrative: Exam Narrative: GENERAL: Morbidly obese young adult female HEENT: PERRL, phar
--- NOTE | 2019-04-12 10:44 | PM.IMPN ---
Progress Note: A&P Assessment and Plan (1) Community acquired pneumonia: Qualifiers: Laterality: unspecified laterality Qualified Code(s): J18.9 - Pneumonia, unspecified organism Code(s): J18.9 - Pneumonia, unspecified organism Status: Acute Assessment and Plan: Post influenza B This may be viral, secondary bacterial, or ARDS Vancomycin, cefepime, 1 dose of Rapivab 04/10 IV steroids Bronchodilators Ventilatory support Pulmonary toilet 04/12 CXR with slight improvement (2) Acute respiratory failure with hypoxemia: Code(s): J96.01 - Acute respiratory failure with hypoxia Status: Acute Assessment and Plan: Due to influenza B with possible postviral bacterial pneumonia, asthma exacerbation, possible ARDS Tx as above (3) Asthma exacerbation: Qualifiers: Asthma severity: severe Asthma persistence: persistent Qualified Code(s): J45.51 - Severe persistent asthma with (acute) exacerbation Code(s): J45.901 - Unspecified asthma with (acute) exacerbation Status: Acute Assessment and Plan: Due to influenza with superimposed pneumonia Tx as above (4) Hypertension, essential: Code(s): I10 - Essential (primary) hypertension Status: Acute Assessment and Plan: Hold antihypertensives and monitor (5) Influenza B: Code(s): J10.1 - Influenza due to other identified influenza virus with other respiratory manifestations Status: Acute Assessment and Plan: Likely too late in the course for antivirals (6) Restrictive lung disease: Code(s): J98.4 - Other disorders of lung Status: Acute Assessment and Plan: Due to morbid obesity (7) Sleep apnea: Qualifiers: Sleep apnea type: obstructive Qualified Code(s): G47.33 - Obstructive sleep apnea (adult) (pediatric) Code(s): G47.30 - Sleep apnea, unspecified Status: Acute Assessment and Plan: ventilatory support (8) Hypothyroid: Qualifiers: Hypothyroidism type: acquired Qualified Code(s): E03.9 - Hypothyroidism, unspecified Code(s): E03.9 - Hypothyroidism, unspecified Status: Acute Assessment and Plan: Continue levothyroxine (9) GERD (gastroesophageal reflux disease): Qualifiers: Esophagitis presence: esophagitis presence not specified Qualified Code(s): K21.9 - Gastro-esophageal reflux disease without esophagitis Code(s): K21.9 - Gastro-esophageal reflux disease without esophagitis Status: Acute Assessment and Plan: PPI for GI prophylaxis (10) Diabetes mellitus: Qualifiers: Diabetes mellitus type: type 2 Diabetes mellitus alf insulin use: without terminologist use Diabetes mellitus complication status: with hyperglycemia Qualified Code(s): E11.65 - Type 2 diabetes mellitus with hyperglycemia Code(s): E11.9 - Type 2 diabetes mellitus without complications Status: Acute Assessment and Plan: 04/10 Blood sugar up to 476 IV insulin Subjective Date/time seen: 04/12/19 10:44 Interval history: Elective intubation 04/10 due to tachypnea with severe dyspnea hypoxia and diffuse pulmonary infiltrates. Currently still sedated and paralyzed. Review of Systems Review of Systems: All systems reviewed & are unremarkable except as noted in HPI and below Exam Narrative: Exam Narrative: GENERAL: Morbidly obese young adult female HEENT: PERRL, pharyngeal mucosa pink and intact. ET tube in place NECK: No JVD, adenopathy, or thyromegaly CHEST: Coarse rhonchi and expiratory wheezes throughout. Scattered crackles. HEART: NL S1/S2, regular, no murmur ABDOMEN: BS+, soft, nontender, no mass, no bruits EXTREMITIES: No cyanosis, edema, or clubbing NEUROLOGIC: CN intact and symmetric to inspection. MUSCULOSKELETAL: Tone and strength symmetric. PSYCH: Sedated Objective Data Vital Signs Vital Signs: Vital Signs - 24
[2019-04-12 11:03] LABS: Glucose Point of Care 105 (65-105)
--- NOTE | 2019-04-12 11:08 | WPDINTPN ---
Progress Note: A&P Assessment and Plan (1) Acute respiratory failure with hypoxemia: Code(s): J96.01 - Acute respiratory failure with hypoxia Status: Acute Assessment and Plan: patient presented with pneumonia, influenza B. Diffuse infiltrates on chest x-ray requiring intubation on 04/10/2019. ARDS - patient placed on low tidal volume and high peep strategy for ARDS physiology, wean FiO2 - patient on Versed, fentanyl infusion for sedation and Nimbex for neuromuscular blockade - chest x-ray and ABGs reviewed, allow permissive hypercapnia, maintain pH greater than 7.25 (2) Community acquired pneumonia: Qualifiers: Laterality: unspecified laterality Qualified Code(s): J18.9 - Pneumonia, unspecified organism Code(s): J18.9 - Pneumonia, unspecified organism Status: Acute Assessment and Plan: patient with community-acquired pneumonia, continue vancomycin and cefepime for now - likely post influenza pneumonia. - will hold steroids due to hyperglycemia - continue mechanical ventilation (3) Influenza B: Code(s): J10.1 - Influenza due to other identified influenza virus with other respiratory manifestations Status: Acute Assessment and Plan: patient given 1 dose of Peramivir (4) Hypothyroid: Qualifiers: Hypothyroidism type: acquired Qualified Code(s): E03.9 - Hypothyroidism, unspecified Code(s): E03.9 - Hypothyroidism, unspecified Status: Acute Assessment and Plan: will continue levothyroxine (5) Hypertension, essential: Code(s): I10 - Essential (primary) hypertension Status: Acute Assessment and Plan: will hold all anti hypertensives at this time (6) Diabetes mellitus: Qualifiers: Diabetes mellitus type: type 2 Diabetes mellitus custodial insulin use: without technician terminal and repeater use Diabetes mellitus complication status: with hyperglycemia Qualified Code(s): E11.65 - Type 2 diabetes mellitus with hyperglycemia Code(s): E11.9 - Type 2 diabetes mellitus without complications Status: Acute Assessment and Plan: hyperglycemia improving, remains on insulin infusion. Steroids discontinued (7) DVT prophylaxis: Code(s): Z29.9 - Encounter for prophylactic measures, unspecified Status: Acute Assessment and Plan: Lovenox (8) Hyperkalemia: Code(s): E87.5 - Hyperkalemia Status: Acute Assessment and Plan: RESOLVED: Additional Plan discussed patient's mother and updated her with patient's condition and plan of care. I answered all questions Code status: Full code Critical care time spent: 34 minutes Due to a high probability of clinically significant, life threatening deterioration, the patient required my highest level of preparedness to intervene emergently and I personally spent this critical care time directly and personally managing the patient. This critical care time included obtaining a history; examining the patient; pulse oximetry; ordering and review of studies; arranging urgent treatment with development of a management plan; evaluation of patient's response to treatment; frequent reassessment; and discussions with other providers. It was exclusive of separately billable procedures and treating other patients and teaching time. Please see Assessment and Plan section and the rest of the note for further information on patient assessment and treatment Subjective Date/time seen: 04/12/19 11:08 Reason for consult: diffuse bilateral pneumonia, acute respiratory failure requiring intubation on 04/10/2019, Influenza B positive, ARDS 04/12/2019: Patient remains intubated on CMV mode of ventilation, low tidal volume and high peep. 90% FiO2, patient is sedated with fentanyl, Versed infusions. Patient also paralyzed with Nimbex. Urine output has been good, Potassium has normalized, blood sugars much improved on insulin in
--- NOTE | 2019-04-12 11:31 | PCDIET ---
Nutrition Follow-Up Complete: Nutrition Diagnosis: Inadequate oral intake related to oral intubation as evidenced by NPO status. Nutrition Goal: Patient to meet estimated protein needs Goal not met; however, MD ordered to initiate Glucerna 1.2 at 10mL/hr. Recommend goal rate of 50mL/hr once tube feeding is able to advance. Given 22 hour infusion per day, this would provide 1320kcal, 66g protein and 885mL free water. Recommend continued 30mL water flush every 4 hours at this time and tapering IV fluids as medically appropriate. Last recorded weight is 215.1 kg which is increased. +I/O. Bowel Motility: No documented bowel movement, as of yet. Bowel sounds hypoactive. Labs Reviewed: Glu (107), Na (136), PO4 (1.9), Ca (7.5) Meds Noted: Albuterol, Fentanyl, Versed, Cefepime, IV Insulin, Protonix, Vancomycin, Nimbex, Lantus, 0.45NaCl with 20mEq KCl at 75mL/hr Additional Notes: No documented skin breakdown. Nutrition Monitoring and Evaluation: Follow up every Monday/Monday. Follow daily in ICU rounds.
[2019-04-12 11:52] LABS: Glucose Point of Care 114 (65-105)
--- NOTE | 2019-04-12 13:06 | PCCDE ---
Consult received 04/11 for diabetes education however pt is currently intubated and sedated. Will f/up on Saturday 04/15 and provide education when appropriate.
[2019-04-12 14:03] LABS: Glucose Point of Care 110 (65-105)
[2019-04-12 14:03] LABS: Glucose Point of Care 113 (65-105)
[2019-04-12] MEDS: INSULIN HUMAN REGULAR (*BKC) 100 UNITS in SODIUM CHLORIDE 0.9% IV 99 ML 7 UNITS IV CONT (15:06)
[2019-04-12 15:12] LABS: Glucose Point of Care 111 (65-105)
[2019-04-12 15:49] LABS: Glucose Point of Care 124 (65-105)
[2019-04-12 18:46] LABS: Glucose Point of Care 104 (65-105)
[2019-04-12 18:46] LABS: Glucose Point of Care 104 (65-105)
[2019-04-12 18:56] LABS: Glucose Point of Care 93 (65-105)
[2019-04-12 20:27] LABS: Glucose Point of Care 100 (65-105)
[2019-04-12 21:16] LABS: Glucose Point of Care 95 (65-105)
[2019-04-12 22:06] LABS: Glucose Point of Care 102 (65-105)
[2019-04-12 23:12] LABS: Glucose Point of Care 88 (65-105)
[2019-04-13] VITALS (29 sets, daily range): BP systolic 105–123; BP diastolic 41–70; PULSE 80–106; RESP 26; TEMP 36.9–39.3; O2SAT 90–100
[2019-04-13 00:13] LABS: Glucose Point of Care 96 (65-105)
[2019-04-13] MEDS: VANCOMYCIN HCL 2,000 MG in SODIUM CHLORIDE 0.9% IV 500 ML 250 MG IVPB ×3 (00:20→23:15)
[2019-04-13 01:09] LABS: Glucose Point of Care 110 (65-105)
[2019-04-13] MEDS: IPRATROPIUM BR 0.02% INH SOLN 0.5 MG/2.5 ML VIAL INHALATION ×4 (01:10→21:35)
[2019-04-13] MEDS: ALBUTEROL SULFATE NEB 2.5 MG/0.5 ML INH 5 MG INHALATION ×4 (01:11→21:35)
[2019-04-13 02:09] LABS: Glucose Point of Care 104 (65-105)
[2019-04-13] MEDS: CEFEPIME 2 GM in SODIUM CHLORIDE 0.9% IV 50 ML 100 ML IVPB ×3 (02:23→16:20)
[2019-04-13 03:17] LABS: Glucose Point of Care 99 (65-105)
[2019-04-13 04:19] LABS: Glucose Point of Care 95 (65-105)
[2019-04-13 05:02] LABS: Glucose Point of Care 102 (65-105)
[2019-04-13 05:05] LABS: Alveolar/Arterial O2 Gradient 225.9 mmHg; Base Excess ABG 2.5 mEq/l (+/-2.0); Carboxyhemoglobin 0.3 % THb (0-2.0); Fractional Inspired Oxygen 50 %; HCO3 ABG 28.4 mEq/l (22.0-26.0); Methemoglobin ABG 0.3 %THb (0-1.5); Oxygen Content ABG 15.9 %vol (16.0-22.0); Oxygen Saturation ABG 94.6 % (95.0-100.0); Oxyhemoglobin 94.7 % THb (90.0-100.0); PCO2 ABG 49.4 mmHg (35.0-45.0); Reduced Hemoglobin 4.7 %THb (0-5.0); Total Hemoglobin 11.9 g/dL (12.0-18.0); pH ABG 7.377 (7.350-7.450)
[2019-04-13 05:07] LABS: Arterial Blood Gas PEEP 14 cmH2O; Arterial Blood Gas Tidal Volume 350 ml; Arterial Blood Gas Vent Mode CMV; Arterial Blood Gas Ventilator rate 26 /MIN; Device VENTILATOR; Modified Allen's Test Pass; Site Drawn RIGHT RADIAL
[2019-04-13 06:05] LABS: Glucose Point of Care 111 (65-105)
[2019-04-13 06:17] LABS: Hematocrit 34.8 % (37.0-47.0); Hemoglobin 10.5 g/dL (12.0-15.0); Mean Corpuscular HGB Conc 30.2 g/dl (32-36); Mean Corpuscular Hemoglobin 26.3 pg (26-34); Mean Corpuscular Volume 87.2 fl (80-100); Mean Platelet Volume 11.1 fl (7.4-10.4); Platelet Count Result 192 k/mm3 (150-375); Red Blood Count 3.99 M/mm3 (4.2-5.4); Red Cell Distribution Width 14.1 % (11.5-14.5); White Blood Count 5.9 K/mm3 (4.5-10.0)
[2019-04-13 06:29] LABS: Lactic Acid 0.8 mmol/L (0.7-2.1)
[2019-04-13 06:32] LABS: Blood Urea Nitrogen 17 mg/dL (7-17); Calcium 7.6 mg/dL (8.4-10.2); Carbon Dioxide 32 mmol/L (22-30); Chloride 102 mmol/L (98-107); Estimated Glomerular Filt Rate > 60; Glucose 100 mg/dL (65-105); Magnesium 2.1 mg/dL (1.6-2.3); Phosphorus 1.9 mg/dL (2.5-4.5); Sodium 138 mmol/L (137-145)
[2019-04-13 06:58] LABS: Glucose Point of Care 92 (65-105)
[2019-04-13] MEDS: LEVOTHYROXINE SODIUM INJ 100 MCG/5 ML VIAL 37.5 MCG IV PUSH (07:00)
[2019-04-13 08:05] LABS: Glucose Point of Care 92 (65-105)
[2019-04-13 08:20] LABS: Influenza Control Positive
[2019-04-13] MEDS: DORNASE ALFA INH SOLN 1 MG/ML 2.5 ML AMP 2.5 MG INHALATION ×2 (08:27→21:35)
[2019-04-13] MEDS: ENOXAPARIN 40 MG/0.4 ML SYRINGE SUB-Q (08:35)
[2019-04-13] MEDS: PANTOPRAZOLE SODIUM IV 40 MG VIAL IV PUSH (08:35)
[2019-04-13] MEDS: INSULIN GLARGINE (*BKC) 100 UNITS/ML 15 UNITS SUB-Q ×2 (08:38→20:57)
[2019-04-13 09:06] LABS: Glucose Point of Care 105 (65-105)
--- NOTE | 2019-04-13 09:56 | P.PNIM_ITS ---
Progress Note: A&P Assessment and Plan (1) Community acquired pneumonia: Qualifiers: Laterality: unspecified laterality Qualified Code(s): J18.9 - Pneumonia, unspecified organism Code(s): J18.9 - Pneumonia, unspecified organism Status: Acute Assessment and Plan: * Post influenza B * This may be viral, secondary bacterial, or ARDS * Vancomycin, cefepime, 1 dose of Rapivab 04/10 * IV steroids * Bronchodilators * Ventilatory support * Pulmonary toilet * 04/12 CXR with slight improvement * 04/13 CXR not much change (2) Acute respiratory failure with hypoxemia: Code(s): J96.01 - Acute respiratory failure with hypoxia Status: Acute Assessment and Plan: * Due to influenza B with possible postviral bacterial pneumonia, asthma exacerbation, possible ARDS * Tx as above (3) Asthma exacerbation: Qualifiers: Asthma severity: severe Asthma persistence: persistent Qualified Code(s): J45.51 - Severe persistent asthma with (acute) exacerbation Code(s): J45.901 - Unspecified asthma with (acute) exacerbation Status: Acute Assessment and Plan: * Due to influenza with superimposed pneumonia * Tx as above (4) Diabetes mellitus: Qualifiers: Diabetes mellitus type: type 2 Diabetes mellitus exterminator insulin use: without exterminator use Diabetes mellitus complication status: with hyperglycemia Qualified Code(s): E11.65 - Type 2 diabetes mellitus with hyperglycemia Code(s): E11.9 - Type 2 diabetes mellitus without complications Status: Acute Assessment and Plan: * 04/10 Blood sugar up to 476 * IV insulin 04/10 * 04/13 Continue basal and SSI (5) Hypertension, essential: Code(s): I10 - Essential (primary) hypertension Status: Acute Assessment and Plan: * Hold antihypertensives and monitor (6) Influenza B: Code(s): J10.1 - Influenza due to other identified influenza virus with other respiratory manifestations Status: Acute Assessment and Plan: * Likely too late in the course for antivirals (7) Restrictive lung disease: Code(s): J98.4 - Other disorders of lung Status: Acute Assessment and Plan: * Due to morbid obesity (8) Sleep apnea: Qualifiers: Sleep apnea type: obstructive Qualified Code(s): G47.33 - Obstructive sleep apnea (adult) (pediatric) Code(s): G47.30 - Sleep apnea, unspecified Status: Acute Assessment and Plan: * ventilatory support (9) Hypothyroid: Qualifiers: Hypothyroidism type: acquired Qualified Code(s): E03.9 - Hypothyroidism, unspecified Code(s): E03.9 - Hypothyroidism, unspecified Status: Acute Assessment and Plan: * Continue levothyroxine (10) GERD (gastroesophageal reflux disease): Qualifiers: Esophagitis presence: esophagitis presence not specified Qualified Code(s): K21.9 - Gastro-esophageal reflux disease without esophagitis Code(s): K21.9 - Gastro-esophageal reflux disease without esophagitis Status: Acute Assessment and Plan: * PPI for GI prophylaxis Subjective Date/time seen: 04/13/19 09:56 Interval history: sedated and intubated Review of Systems Review of Systems: ROS unobtainable: unobtainable due to mental condition Exam Narrative: Exam Narrative: GENERAL: Morbidly obese young adult female HEENT: PERRL, pharyngeal mucosa pink and intact. ET tube in place NECK: No JVD, adenopathy,
--- NOTE | 2019-04-13 09:56 | PM.IMPN ---
Progress Note: A&P Assessment and Plan (1) Community acquired pneumonia: Qualifiers: Laterality: unspecified laterality Qualified Code(s): J18.9 - Pneumonia, unspecified organism Code(s): J18.9 - Pneumonia, unspecified organism Status: Acute Assessment and Plan: Post influenza B This may be viral, secondary bacterial, or ARDS Vancomycin, cefepime, 1 dose of Rapivab 04/10 IV steroids Bronchodilators Ventilatory support Pulmonary toilet 04/12 CXR with slight improvement 04/13 CXR not much change (2) Acute respiratory failure with hypoxemia: Code(s): J96.01 - Acute respiratory failure with hypoxia Status: Acute Assessment and Plan: Due to influenza B with possible postviral bacterial pneumonia, asthma exacerbation, possible ARDS Tx as above (3) Asthma exacerbation: Qualifiers: Asthma severity: severe Asthma persistence: persistent Qualified Code(s): J45.51 - Severe persistent asthma with (acute) exacerbation Code(s): J45.901 - Unspecified asthma with (acute) exacerbation Status: Acute Assessment and Plan: Due to influenza with superimposed pneumonia Tx as above (4) Diabetes mellitus: Qualifiers: Diabetes mellitus type: type 2 Diabetes mellitus halfway insulin use: without halfway use Diabetes mellitus complication status: with hyperglycemia Qualified Code(s): E11.65 - Type 2 diabetes mellitus with hyperglycemia Code(s): E11.9 - Type 2 diabetes mellitus without complications Status: Acute Assessment and Plan: 04/10 Blood sugar up to 476 IV insulin 04/10 04/13 Continue basal and SSI (5) Hypertension, essential: Code(s): I10 - Essential (primary) hypertension Status: Acute Assessment and Plan: Hold antihypertensives and monitor (6) Influenza B: Code(s): J10.1 - Influenza due to other identified influenza virus with other respiratory manifestations Status: Acute Assessment and Plan: Likely too late in the course for antivirals (7) Restrictive lung disease: Code(s): J98.4 - Other disorders of lung Status: Acute Assessment and Plan: Due to morbid obesity (8) Sleep apnea: Qualifiers: Sleep apnea type: obstructive Qualified Code(s): G47.33 - Obstructive sleep apnea (adult) (pediatric) Code(s): G47.30 - Sleep apnea, unspecified Status: Acute Assessment and Plan: ventilatory support (9) Hypothyroid: Qualifiers: Hypothyroidism type: acquired Qualified Code(s): E03.9 - Hypothyroidism, unspecified Code(s): E03.9 - Hypothyroidism, unspecified Status: Acute Assessment and Plan: Continue levothyroxine (10) GERD (gastroesophageal reflux disease): Qualifiers: Esophagitis presence: esophagitis presence not specified Qualified Code(s): K21.9 - Gastro-esophageal reflux disease without esophagitis Code(s): K21.9 - Gastro-esophageal reflux disease without esophagitis Status: Acute Assessment and Plan: PPI for GI prophylaxis Subjective Date/time seen: 04/13/19 09:56 Interval history: sedated and intubated Review of Systems Review of Systems: ROS unobtainable: unobtainable due to mental condition Exam Narrative: Exam Narrative: GENERAL: Morbidly obese young adult female HEENT: PERRL, pharyngeal mucosa pink and intact. ET tube in place NECK: No JVD, adenopathy, or thyromegaly CHEST: Coarse rhonchi and expiratory wheezes throughout. Scattered crackles. HEART: NL S1/S2, regular, no murmur ABDOMEN: BS+, soft, nontender, no mass, no bruits EXTREMITIES: No cyanosis, edema, or clubbing NEUROLOGIC: CN intact and symmetric to inspection. MUSCULOSKELETAL: Tone and strength symmetric. PSYCH: Sedated Objective Data Vital Signs Vital Signs: Vital Signs - 24 hr 04/12/19 09:58 04/12/19 09:59 04/12/19 11:20 Temperature 99.2 F
[2019-04-13] MEDS: POTASSIUM PHOS,M-BASIC-D-BASIC 20 MMOL in SODIUM CHLORIDE 0.9% IV 250 ML 64 MMOL IVPB (10:22)
[2019-04-13 10:32] LABS: Glucose Point of Care 112 (65-105)
--- NOTE | 2019-04-13 10:38 | WPDINTPN ---
Progress Note: A&P Assessment and Plan (1) Acute respiratory failure with hypoxemia: Code(s): J96.01 - Acute respiratory failure with hypoxia Status: Acute Assessment and Plan: patient presented with pneumonia and influenza B. Diffuse infiltrates on chest x-ray requiring intubation on 04/10/2019 which is suggestive of ARDS likely as a result of influenza/pneumonia. - patient placed on low tidal volume and high peep strategy for ARDS physiology, wean FiO2 And peep. - Nimbex has been weaned off today as she was on 09/23 loss 48 hours. Currently her midazolam has been transition to before. She will remain on fentanyl for sedation. She had some ventilator asynchrony when Nimbex has been weaned off but now seems to be doing well with her sedation being increased. - chest x-ray and ABGs reviewed, allow permissive hypercapnia, maintain pH greater than 7.25. - If her hemodynamics are stable then would start diuresing her from tomorrow onwards. - Her requirement of high PEEP may be as a result of ARDS physiology but mostly it is being used because of her morbid obesity. - it seems that she had difficult airway and anesthesia has to be involved for intubation. (2) Community acquired pneumonia: Qualifiers: Laterality: unspecified laterality Qualified Code(s): J18.9 - Pneumonia, unspecified organism Code(s): J18.9 - Pneumonia, unspecified organism Status: Acute Assessment and Plan: patient with community-acquired pneumonia, continue vancomycin and cefepime for now - Will send respiratory secretion for culture. - likely post influenza pneumonia. - Initially was started on steroid for severe community-acquired pneumonia but that had been discontinued because of significant hyperglycemia. - continue mechanical ventilation . She is not a candidate for SBT trial today because of high requirement of PEEP and FiO2. (3) Influenza B: Code(s): J10.1 - Influenza due to other identified influenza virus with other respiratory manifestations Status: Acute Assessment and Plan: patient given 1 dose of Peramivir Repeat testing here showed negative influenza B. Droplet precaution has been discontinued. (4) Hypothyroid: Qualifiers: Hypothyroidism type: acquired Qualified Code(s): E03.9 - Hypothyroidism, unspecified Code(s): E03.9 - Hypothyroidism, unspecified Status: Acute Assessment and Plan: will continue levothyroxine (5) Hypertension, essential: Code(s): I10 - Essential (primary) hypertension Status: Acute Assessment and Plan: will hold all anti hypertensives at this time (6) Diabetes mellitus: Qualifiers: Diabetes mellitus type: type 2 Diabetes mellitus termination clerk insulin use: without longterm use Diabetes mellitus complication status: with hyperglycemia Qualified Code(s): E11.65 - Type 2 diabetes mellitus with hyperglycemia Code(s): E11.9 - Type 2 diabetes mellitus without complications Status: Acute Assessment and Plan: Steroids have been discontinued because of hyperglycemia. Will wean insulin drip if tolerated. We will switch D5 half-normal saline with KCl to Ringer lactate IV fluid. Continue Lantus. Continue sliding scale. (7) DVT prophylaxis: Code(s): Z29.9 - Encounter for prophylactic measures, unspecified Status: Acute Assessment and Plan: Lovenox (8) Hyperkalemia: Code(s): E87.5 - Hyperkalemia Status: Acute Assessment and Plan: Resolved Additional Plan discussed patient's mother and updated her with patient's condition and plan of care. I answered all questions. Tube feeds will be advanced to her goal as she is of Nimbex drip now. Code status: Full code Critical care time spent: 34 minutes Due to a high probability of clinically significant, life threatening deterioration, the patient required my
[2019-04-13] MEDS: LACTATED RINGERS 1,000 ML 75 ML IV CONT (11:45)
[2019-04-13] MEDS: PROPOFOL IV EMULSION 100 ML 6.6 MG IV CONT (11:45)
[2019-04-13 11:56] LABS: Glucose Point of Care 127 (65-105)
[2019-04-13] MEDS: PROPOFOL IV EMULSION 100 ML 66.3 MG IV CONT (12:44)
[2019-04-13] MEDS: PROPOFOL IV EMULSION 100 ML 46.4 MG IV CONT ×5 (14:27→23:11)
[2019-04-13] MEDS: POTASSIUM PHOS,M-BASIC-D-BASIC 20 MMOL in SODIUM CHLORIDE 0.9% IV 250 ML 62.5 MMOL IVPB (14:28)
[2019-04-13 18:50] LABS: Glucose Point of Care 150 (65-105)
[2019-04-13 20:53] LABS: Glucose Point of Care 145 (65-105)
[2019-04-13] MEDS: FAMOTIDINE 20 MG/2 ML VIAL IV PUSH (20:55)
[2019-04-13 23:39] LABS: Glucose Point of Care 143 (65-105)
[2019-04-14] VITALS (36 sets, daily range): BP systolic 114–139; BP diastolic 49–86; PULSE 77–91; RESP 23–27; TEMP 36.9–39; O2SAT 90–100
[2019-04-14] MEDS: LACTATED RINGERS 1,000 ML 75 ML IV CONT (00:48)
[2019-04-14] MEDS: CEFEPIME 2 GM in SODIUM CHLORIDE 0.9% IV 50 ML 100 ML IVPB ×2 (00:49→08:22)
[2019-04-14] MEDS: PROPOFOL IV EMULSION 100 ML 46.4 MG IV CONT ×11 (01:41→22:19)
[2019-04-14] MEDS: ALBUTEROL SULFATE NEB 2.5 MG/0.5 ML INH 5 MG INHALATION ×4 (02:24→21:01)
[2019-04-14] MEDS: IPRATROPIUM BR 0.02% INH SOLN 0.5 MG/2.5 ML VIAL INHALATION ×4 (02:24→21:01)
[2019-04-14 04:55] LABS: Alveolar/Arterial O2 Gradient 442.2 mmHg; Base Excess ABG 0.1 mEq/l (+/-2.0); Carboxyhemoglobin 0.5 % THb (0-2.0); Fractional Inspired Oxygen 80 %; HCO3 ABG 27.4 mEq/l (22.0-26.0); Methemoglobin ABG 0.3 %THb (0-1.5); Modified Allen's Test Pass; Oxygen Content ABG 17.3 %vol (16.0-22.0); Oxygen Saturation ABG 91.8 % (95.0-100.0); Oxyhemoglobin 92.2 % THb (90.0-100.0); PCO2 ABG 56.4 mmHg (35.0-45.0); PO2 FiO2 Ratio Arterial Blood 0.86 %; Total Hemoglobin 13.3 g/dL (12.0-18.0); pH ABG 7.305 (7.350-7.450)
[2019-04-14 04:56] LABS: Device VENTILATOR; Site Drawn RIGHT RADIAL
[2019-04-14 04:57] LABS: Arterial Blood Gas Vent Mode CMV; Arterial Blood Gas Ventilator rate 26 /MIN
[2019-04-14 04:58] LABS: Arterial Blood Gas PEEP 12 cmH2O; Arterial Blood Gas Tidal Volume 350 ml
[2019-04-14] MEDS: LEVOTHYROXINE SODIUM INJ 100 MCG/5 ML VIAL 37.5 MCG IV PUSH (05:33)
[2019-04-14 05:42] LABS: Hematocrit 34.7 % (37.0-47.0); Hemoglobin 10.4 g/dL (12.0-15.0); Mean Corpuscular Hemoglobin 26.4 pg (26-34); Mean Corpuscular Volume 88.1 fl (80-100); Mean Platelet Volume 11.3 fl (7.4-10.4); Platelet Count Result 216 k/mm3 (150-375); Red Blood Count 3.94 M/mm3 (4.2-5.4); Red Cell Distribution Width 14.3 % (11.5-14.5); White Blood Count 7.6 K/mm3 (4.5-10.0)
[2019-04-14 05:49] LABS: Lactic Acid 0.7 mmol/L (0.7-2.1)
[2019-04-14 05:56] LABS: Blood Urea Nitrogen 15 mg/dL (7-17); Calcium 7.8 mg/dL (8.4-10.2); Carbon Dioxide 29 mmol/L (22-30); Chloride 99 mmol/L (98-107); Estimated Glomerular Filt Rate > 60; Glucose 169 mg/dL (65-105); Magnesium 2.1 mg/dL (1.6-2.3); Phosphorus 3.4 mg/dL (2.5-4.5); Potassium 4.3 mmol/L (3.4-5.0); Sodium 137 mmol/L (137-145)
--- NOTE | 2019-04-14 07:00 | PC.NURSE ---
0700- Mom, Cindy, notified that patient's respiratory status rapidly declined this morning and is requiring more help from the vent and will need to be put back on the paralytics. Mom voiced understanding, questions were answered.
[2019-04-14] MEDS: FUROSEMIDE INJ 40 MG/4 ML VIAL IV PUSH ×2 (08:07→16:27)
[2019-04-14 08:23] LABS: Alveolar/Arterial O2 Gradient 591.6 mmHg; Base Excess ABG 1.3 mEq/l (+/-2.0); Fractional Inspired Oxygen 100 %; HCO3 ABG 27.3 mEq/l (22.0-26.0); Oxygen Content ABG 15.4 %vol (16.0-22.0); Oxygen Saturation ABG 93.9 % (95.0-100.0); Oxyhemoglobin 94.1 % THb (90.0-100.0); PCO2 ABG 49.1 mmHg (35.0-45.0); PO2 ABG 72.3 mmHg (80.0-100.0); PO2 FiO2 Ratio Arterial Blood 0.72 %; Total Hemoglobin 11.6 g/dL (12.0-18.0); pH ABG 7.363 (7.350-7.450)
[2019-04-14 08:24] LABS: Site Drawn RIGHT RADIAL
[2019-04-14 08:25] LABS: Arterial Blood Gas PEEP 16 cmH2O; Arterial Blood Gas Vent Mode PRESSURE CONTROL; Arterial Blood Gas Ventilator rate 26 /MIN; Device VENTILATOR; Modified Allen's Test Pass; Peak Inspiratory Pressure 22 cmH2O
[2019-04-14] MEDS: FAMOTIDINE 20 MG/2 ML VIAL IV PUSH ×2 (08:28→20:01)
[2019-04-14] MEDS: ENOXAPARIN 40 MG/0.4 ML SYRINGE SUB-Q (08:28)
[2019-04-14 08:36] LABS: Glucose Point of Care 179 (65-105)
[2019-04-14 09:24] LABS: NT Pro B Type Natriuretic Pept 194 PG/ML (5-100)
[2019-04-14] MEDS: DORNASE ALFA INH SOLN 1 MG/ML 2.5 ML AMP 2.5 MG INHALATION ×2 (09:25→21:02)
--- NOTE | 2019-04-14 09:25 | P.PNIM_ITS ---
Progress Note: A&P Assessment and Plan (1) Community acquired pneumonia: Qualifiers: Laterality: unspecified laterality Qualified Code(s): J18.9 - Pneumonia, unspecified organism Code(s): J18.9 - Pneumonia, unspecified organism Status: Acute Assessment and Plan: * Post influenza B * This may be viral, secondary bacterial, or ARDS * Vancomycin, cefepime, 1 dose of Rapivab 04/10 * IV steroids * Bronchodilators * Ventilatory support * Pulmonary toilet * 04/12 CXR with slight improvement * 04/13 CXR not much change * 04/14 CXR w/o improvement, furosemide x1, peep at 16 & fio2 at 100% (2) Acute respiratory failure with hypoxemia: Code(s): J96.01 - Acute respiratory failure with hypoxia Status: Acute Assessment and Plan: * Due to influenza B with possible postviral bacterial pneumonia, asthma exacerbation, possible ARDS * Tx as above (3) Asthma exacerbation: Qualifiers: Asthma severity: severe Asthma persistence: persistent Qualified Code(s): J45.51 - Severe persistent asthma with (acute) exacerbation Code(s): J45.901 - Unspecified asthma with (acute) exacerbation Status: Acute Assessment and Plan: * Due to influenza with superimposed pneumonia * Tx as above (4) Diabetes mellitus: Qualifiers: Diabetes mellitus type: type 2 Diabetes mellitus halfway insulin use: without rodent exterminator use Diabetes mellitus complication status: with hyperglycemia Qualified Code(s): E11.65 - Type 2 diabetes mellitus with hyperglycemia Code(s): E11.9 - Type 2 diabetes mellitus without complications Status: Acute Assessment and Plan: * 04/10 Blood sugar up to 476 * IV insulin 04/10 * 04/13 Continue basal and SSI * 04/14 AM BS 169 (5) Hypertension, essential: Code(s): I10 - Essential (primary) hypertension Status: Acute Assessment and Plan: * Hold antihypertensives and monitor (6) Influenza B: Code(s): J10.1 - Influenza due to other identified influenza virus with other respiratory manifestations Status: Acute Assessment and Plan: * too late in the course for antivirals (7) Restrictive lung disease: Code(s): J98.4 - Other disorders of lung Status: Acute Assessment and Plan: * Due to morbid obesity (8) Sleep apnea: Qualifiers: Sleep apnea type: obstructive Qualified Code(s): G47.33 - Obstructive sleep apnea (adult) (pediatric) Code(s): G47.30 - Sleep apnea, unspecified Status: Acute Assessment and Plan: * ventilatory support (9) Hypothyroid: Qualifiers: Hypothyroidism type: acquired Qualified Code(s): E03.9 - Hypothyroidism, unspecified Code(s): E03.9 - Hypothyroidism, unspecified Status: Acute Assessment and Plan: * Continue levothyroxine (10) GERD (gastroesophageal reflux disease): Qualifiers: Esophagitis presence: esophagitis presence not specified Qualified Code(s): K21.9 - Gastro-esophageal reflux disease without esophagitis Code(s): K21.9 - Gastro-esophageal reflux disease without esophagitis Status: Acute Assessment and Plan: * PPI for GI prophylaxis Subjective Date/time seen: 04/14/19 09:25 Interval history: Rough night with 4AM desat, bagging, suctioned large amount of purulent secretions. Review of Systems Review of Systems: ROS unobtainable: unobtainable due to endotracheal tube, unobtainable due to mental condition and unobtainable due
--- NOTE | 2019-04-14 09:25 | PM.IMPN ---
Progress Note: A&P Assessment and Plan (1) Community acquired pneumonia: Qualifiers: Laterality: unspecified laterality Qualified Code(s): J18.9 - Pneumonia, unspecified organism Code(s): J18.9 - Pneumonia, unspecified organism Status: Acute Assessment and Plan: Post influenza B This may be viral, secondary bacterial, or ARDS Vancomycin, cefepime, 1 dose of Rapivab 04/10 IV steroids Bronchodilators Ventilatory support Pulmonary toilet 04/12 CXR with slight improvement 04/13 CXR not much change 04/14 CXR w/o improvement, furosemide x1, peep at 16 & fio2 at 100% (2) Acute respiratory failure with hypoxemia: Code(s): J96.01 - Acute respiratory failure with hypoxia Status: Acute Assessment and Plan: Due to influenza B with possible postviral bacterial pneumonia, asthma exacerbation, possible ARDS Tx as above (3) Asthma exacerbation: Qualifiers: Asthma severity: severe Asthma persistence: persistent Qualified Code(s): J45.51 - Severe persistent asthma with (acute) exacerbation Code(s): J45.901 - Unspecified asthma with (acute) exacerbation Status: Acute Assessment and Plan: Due to influenza with superimposed pneumonia Tx as above (4) Diabetes mellitus: Qualifiers: Diabetes mellitus type: type 2 Diabetes mellitus custodial insulin use: without custodial use Diabetes mellitus complication status: with hyperglycemia Qualified Code(s): E11.65 - Type 2 diabetes mellitus with hyperglycemia Code(s): E11.9 - Type 2 diabetes mellitus without complications Status: Acute Assessment and Plan: 04/10 Blood sugar up to 476 IV insulin 04/10 04/13 Continue basal and SSI 04/14 AM BS 169 (5) Hypertension, essential: Code(s): I10 - Essential (primary) hypertension Status: Acute Assessment and Plan: Hold antihypertensives and monitor (6) Influenza B: Code(s): J10.1 - Influenza due to other identified influenza virus with other respiratory manifestations Status: Acute Assessment and Plan: too late in the course for antivirals (7) Restrictive lung disease: Code(s): J98.4 - Other disorders of lung Status: Acute Assessment and Plan: Due to morbid obesity (8) Sleep apnea: Qualifiers: Sleep apnea type: obstructive Qualified Code(s): G47.33 - Obstructive sleep apnea (adult) (pediatric) Code(s): G47.30 - Sleep apnea, unspecified Status: Acute Assessment and Plan: ventilatory support (9) Hypothyroid: Qualifiers: Hypothyroidism type: acquired Qualified Code(s): E03.9 - Hypothyroidism, unspecified Code(s): E03.9 - Hypothyroidism, unspecified Status: Acute Assessment and Plan: Continue levothyroxine (10) GERD (gastroesophageal reflux disease): Qualifiers: Esophagitis presence: esophagitis presence not specified Qualified Code(s): K21.9 - Gastro-esophageal reflux disease without esophagitis Code(s): K21.9 - Gastro-esophageal reflux disease without esophagitis Status: Acute Assessment and Plan: PPI for GI prophylaxis Subjective Date/time seen: 04/14/19 09:25 Interval history: Rough night with 4AM desat, bagging, suctioned large amount of purulent secretions. Review of Systems Review of Systems: ROS unobtainable: unobtainable due to endotracheal tube, unobtainable due to mental condition and unobtainable due to mental status Exam Narrative: Exam Narrative: GENERAL: Morbidly obese young adult female HEENT: PERRL, pharyngeal mucosa pink and intact. ET tube in place NECK: No JVD, adenopathy, or thyromegaly CHEST: Coarse rhonchi. Scattered crackles. HEART: NL S1/S2, regular, no murmur ABDOMEN: BS+, soft, nontender, no mass, no bruits EXTREMITIES: No cyanosis, no pitting edema, no clubbing NEUROLOGIC: CN intact and symmetric to inspection. MUSCULOS
[2019-04-14 09:27] LABS: Troponin I < 0.012 ng/mL (0.000-0.034)
[2019-04-14] MEDS: VANCOMYCIN HCL 2,000 MG in SODIUM CHLORIDE 0.9% IV 500 ML 250 MG IVPB (11:17)
[2019-04-14 11:27] LABS: Glucose Point of Care 202 (65-105)
[2019-04-14] MEDS: ACETAMINOPHEN ELIXIR 325 MG/10.15 ML UDC 650 MG PO (11:33)
--- NOTE | 2019-04-14 11:58 | WPDINTPN ---
Progress Note: A&P Assessment and Plan (1) Acute respiratory failure with hypoxemia: Code(s): J96.01 - Acute respiratory failure with hypoxia Status: Acute Assessment and Plan: patient presented with pneumonia and influenza B. Diffuse infiltrates on chest x-ray requiring intubation on 04/10/2019 which is suggestive of ARDS likely as a result of influenza/pneumonia. - patient placed on low tidal volume and high peep strategy for ARDS physiology, wean FiO2 And peep. She had a significant decompensation today and has been requiring higher PEEP and FiO2. - She has been weaned off paralytics yesterday but had to be restarted back on it because of significant respiratory decompensation with persistent hypoxia. - chest x-ray and ABGs reviewed, allow permissive hypercapnia, maintain pH greater than 7.25. - She has been started on diuretics and seems to have good urine output with Lasix. - it seems that she had difficult airway and anesthesia has to be involved for intubation. - Because of her decompensation and difficulty ventilating her, [facility] has been called and she has been accepted in the ICU there. Once the bed is available she will be airlifted for transfer. - EKG and troponin will be checked to rule out any cardiac component. - Will order a stat echocardiogram to look into cardiac status. (2) Community acquired pneumonia: Qualifiers: Laterality: unspecified laterality Qualified Code(s): J18.9 - Pneumonia, unspecified organism Code(s): J18.9 - Pneumonia, unspecified organism Status: Acute Assessment and Plan: patient with community-acquired pneumonia, continue vancomycin and cefepime for now - Follow sputum culture and blood culture. - likely post influenza pneumonia. Status post 1 dose of pramivir. repeat influenza testing came back negative. Droplet precaution has been discontinued. - Initially was started on steroid for severe community-acquired pneumonia but that had been discontinued because of significant hyperglycemia. - continue mechanical ventilation . Wean FiO2 and PEEP if tolerated. - Procalcitonin will be checked. (3) Influenza B: Code(s): J10.1 - Influenza due to other identified influenza virus with other respiratory manifestations Status: Acute Assessment and Plan: patient given 1 dose of Peramivir Repeat testing here showed negative influenza B. Droplet precaution has been discontinued. (4) Hypothyroid: Qualifiers: Hypothyroidism type: acquired Qualified Code(s): E03.9 - Hypothyroidism, unspecified Code(s): E03.9 - Hypothyroidism, unspecified Status: Acute Assessment and Plan: will continue levothyroxine (5) Hypertension, essential: Code(s): I10 - Essential (primary) hypertension Status: Acute Assessment and Plan: will hold all anti hypertensives at this time (6) Diabetes mellitus: Qualifiers: Diabetes mellitus type: type 2 Diabetes mellitus fdc insulin use: without terminal block assembler use Diabetes mellitus complication status: with hyperglycemia Qualified Code(s): E11.65 - Type 2 diabetes mellitus with hyperglycemia Code(s): E11.9 - Type 2 diabetes mellitus without complications Status: Acute Assessment and Plan: Steroids have been discontinued because of hyperglycemia. Stop IV fluids. Continue Lantus. Continue sliding scale. (7) DVT prophylaxis: Code(s): Z29.9 - Encounter for prophylactic measures, unspecified Status: Acute Assessment and Plan: Lovenox (8) Hyperkalemia: Code(s): E87.5 - Hyperkalemia Status: Acute Assessment and Plan: Resolved Additional Plan discussed patient's mother and updated her with patient's condition and plan of care. I answered all questions. Because of the significant decompensation from a respiratory perspective and difficu
[2019-04-14 13:33] LABS: Blood Urea Nitrogen 13 mg/dL (7-17); Calcium 7.7 mg/dL (8.4-10.2); Carbon Dioxide 32 mmol/L (22-30); Chloride 96 mmol/L (98-107); Estimated Glomerular Filt Rate > 60; Glucose 211 mg/dL (65-105); Potassium 4.1 mmol/L (3.4-5.0); Sodium 136 mmol/L (137-145)
--- NOTE | 2019-04-14 14:04 | ECG_ITS ---
Measurements Intervals [place] Rate: 83 P: 62 NM: 110 QRS: 24 QRSD: 98 T: 33 QT: 359 QTc: 422 Interpretive Statements SINUS RHYTHM WITH SHORT NM INTERVAL DELAYED PRECORDIAL R/S TRANSITION MINIMAL Q WAVES- INFERIOR LEADS BORDERLINE ECG Electronically Signed On 04-14-2019 15:55:00 LOG PREPARER by Goldy Iqbal D.O.
[2019-04-14 17:27] LABS: Glucose Point of Care 200 (65-105)
[2019-04-14 20:01] LABS: Glucose Point of Care 189 (65-105)
[2019-04-14] MEDS: INSULIN GLARGINE (*BKC) 100 UNITS/ML 15 UNITS SUB-Q (20:01)
[2019-04-14 23:23] LABS: Glucose Point of Care 185 (65-105)
[2019-04-14 23:56] LABS: Vancomycin Trough 16.4 ug/mL (10.0-20.0)
[2019-04-15] VITALS (29 sets, daily range): BP systolic 113–135; BP diastolic 53–72; PULSE 74–110; RESP 26; TEMP 37.3–39.7; O2SAT 99–100
--- NOTE | 2019-04-15 | ECHO_ITS ---
Patient Info Name: Claudia Delgado Age: 28 years : 1990 Gender: Female Ht: 59 in Wt: 525 lbs BSA: 3.35 m2 HR: 110 bpm BP: 129 / 58 mmHg Heart Rhythm: Tachycardia Technical Quality: Fair Exam Date: 04/15/2019 11:22 AM Exam Location: [facility] Pulmonary Patient Status: Inpatient Admit Date: 04/10/2019 Staff Ordering Physician: Denis Pineda MD Produce Sorter: Yobani Peck [facility] Attending Provider: Tono Frank MD Exam Type: CA echo dop color flow w con Study Info Indications J96.00 - Acute respiratory failure, unspecified whether with hypoxia or hypercapnia Complete two-dimensional, color flow and Doppler transthoracic echocardiogram is performed with contrast to opacify the left ventrical and to improve the deliniation of the left ventrical endocarial boarders. Contrast/Agitated Saline Contrast/Ag. Saline: Definity Amount: 2.00 ml Administered By: Kane Haider RN Existing IV Access: Yes History/Risk Factors Respiratory failure w/ Flu; DM, HTN. Summary 1. Definity contrast injected to enhance visualization. 2. Left ventricular systolic function is normal, estimated at 65-70%. 3. Poor quality exam because of obesity. 4. No significant valvular lesions seen on Doppler. Left Ventricle Left ventricular chamber dimension is normal. Left ventricular systolic function is normal, estimated at 65-70%. The left ventricular diastolic function is normal. Definity contrast injected to enhance visualization. Right Ventricle Right ventricular chamber dimension is normal. Left Atria Left atrial chamber dimension is normal. Right Atria Right atrial chamber dimension is normal. Aortic Valve The aortic valve is trileaflet. Pulmonic Valve The pulmonic valve is not well visualized. Mitral Valve The mitral valve has normal leaflets. Tricuspid Valve The tricuspid valve leaflets are not well visualized. Pericardium/Pleural The pericardium appears normal. Aorta The aortic root size at the sinus of Valsalva is normal. Left Ventricular Outflow Tract Name Value Normal LVOT 2D LVOT Diameter 2.09 cm LVOT Doppler LVOT Peak Gradient 9 mmHg LVOT Mean Gradient 5 mmHg LVOT VTI 23.54 cm LVOT VTI/AV VTI Ratio 0.75 LVOT Stroke Volume 80.98 ml LVOT CO 8.90 l/min LVOT CI 2.65 L/min/m2 Mitral Valve Name Value Normal MV Doppler MV [place] 582.09 cm/s2 MV PHT 0 s MV Area (PHT) 4.67 cm2 4.00-5.00 MV Diastolic Function
[2019-04-15] MEDS: PROPOFOL IV EMULSION 100 ML 39.8 MG IV CONT (00:49)
[2019-04-15] MEDS: IPRATROPIUM BR 0.02% INH SOLN 0.5 MG/2.5 ML VIAL INHALATION ×3 (01:19→13:35)
[2019-04-15] MEDS: ALBUTEROL SULFATE NEB 2.5 MG/0.5 ML INH 5 MG INHALATION ×3 (01:19→13:34)
[2019-04-15] MEDS: PROPOFOL IV EMULSION 100 ML 33.1 MG IV CONT ×5 (03:19→15:53)
[2019-04-15 04:35] LABS: Hematocrit 32.3 % (37.0-47.0); Hemoglobin 9.8 g/dL (12.0-15.0); Mean Corpuscular HGB Conc 30.3 g/dl (32-36); Mean Corpuscular Hemoglobin 26.2 pg (26-34); Mean Corpuscular Volume 86.4 fl (80-100); Mean Platelet Volume 11.7 fl (7.4-10.4); Platelet Count Result 223 k/mm3 (150-375); Red Blood Count 3.74 M/mm3 (4.2-5.4); Red Cell Distribution Width 13.9 % (11.5-14.5); White Blood Count 8.4 K/mm3 (4.5-10.0)
[2019-04-15 04:55] LABS: Blood Urea Nitrogen 11 mg/dL (7-17); Calcium 8.1 mg/dL (8.4-10.2); Carbon Dioxide 32 mmol/L (22-30); Chloride 95 mmol/L (98-107); Estimated Glomerular Filt Rate > 60; Glucose 215 mg/dL (65-105); Magnesium 1.9 mg/dL (1.6-2.3); Phosphorus 2.6 mg/dL (2.5-4.5); Potassium 3.6 mmol/L (3.4-5.0); Sodium 133 mmol/L (137-145)
[2019-04-15 05:00] LABS: Alveolar/Arterial O2 Gradient 274.1 mmHg; Base Excess ABG 4.5 mEq/l (+/-2.0); Carboxyhemoglobin 0.3 % THb (0-2.0); Fractional Inspired Oxygen 80 %; HCO3 ABG 28.9 mEq/l (22.0-26.0); Methemoglobin ABG 0.4 %THb (0-1.5); Oxygen Content ABG 15.5 %vol (16.0-22.0); Oxygen Saturation ABG 99.6 % (95.0-100.0); PCO2 ABG 42.6 mmHg (35.0-45.0); PO2 ABG 251.6 mmHg (80.0-100.0); PO2 FiO2 Ratio Arterial Blood 3.14 %; Reduced Hemoglobin 1.3 %THb (0-5.0); Total Hemoglobin 10.8 g/dL (12.0-18.0)
[2019-04-15 05:01] LABS: Device VENTILATOR; Modified Allen's Test Pass; Site Drawn LEFT RADIAL
[2019-04-15 05:02] LABS: Arterial Blood Gas Vent Mode PRESSURE CONTROL; Arterial Blood Gas Ventilator rate 26 /MIN; Peak Inspiratory Pressure 22 cmH2O
[2019-04-15 05:03] LABS: Arterial Blood Gas PEEP 16 cmH2O; Arterial Blood Gas Pressure Support 0 cmH2O
[2019-04-15 05:12] LABS: Glucose Point of Care 196 (65-105)
[2019-04-15] MEDS: LEVOTHYROXINE SODIUM INJ 100 MCG/5 ML VIAL 37.5 MCG IV PUSH (05:57)
--- NOTE | 2019-04-15 07:00 | WPDINTPN ---
Progress Note: A&P Assessment and Plan (1) Acute respiratory failure with hypoxemia: Code(s): J96.01 - Acute respiratory failure with hypoxia Status: Acute Assessment and Plan: Patient presented with pneumonia and influenza B. Diffuse infiltrates on chest x-ray requiring intubation on 04/10/2019 which is suggestive of ARDS likely as a result of influenza/pneumonia. Componenet of fluid overload - chest x-ray and ABGs reviewed - patient placed on low tidal volume and high peep strategy for ARDS physiology, wean FiO2 And peep. - Advance ETT by 4 cm and repeat CXR. She was difficult airway - Continue paralytics and sedation at this time - Wean PEEP to 14 if tolerates ETT adjustment - Continue [facility] has been called and she has been accepted in the ICU there. Once the bed is available she will be airlifted for transfer. - ECHO is ordered and pending (2) Community acquired pneumonia: Qualifiers: Laterality: unspecified laterality Qualified Code(s): J18.9 - Pneumonia, unspecified organism Code(s): J18.9 - Pneumonia, unspecified organism Status: Acute Assessment and Plan: patient with community-acquired pneumonia, post influenza - Continue vancomycin and cefepime for now - Follow sputum culture and blood culture. NTD - likely post influenza pneumonia. Status post 1 dose of pramivir. Repeat influenza testing came back negative. Droplet precaution has been discontinued. - Initially was started on steroid for severe community-acquired pneumonia but that had been discontinued because of significant hyperglycemia. - Procalcitonin pending (3) Influenza B: Code(s): J10.1 - Influenza due to other identified influenza virus with other respiratory manifestations Status: Acute Assessment and Plan: patient given 1 dose of Peramivir Repeat testing here showed negative influenza B. Droplet precaution has been discontinued. (4) Hypothyroid: Qualifiers: Hypothyroidism type: acquired Qualified Code(s): E03.9 - Hypothyroidism, unspecified Code(s): E03.9 - Hypothyroidism, unspecified Status: Acute Assessment and Plan: Continue levothyroxine (5) Hypertension, essential: Code(s): I10 - Essential (primary) hypertension Status: Acute Assessment and Plan: will hold all anti hypertensives at this time (6) Diabetes mellitus: Qualifiers: Diabetes mellitus type: type 2 Diabetes mellitus retirement insulin use: without retirement use Diabetes mellitus complication status: with hyperglycemia Qualified Code(s): E11.65 - Type 2 diabetes mellitus with hyperglycemia Code(s): E11.9 - Type 2 diabetes mellitus without complications Status: Acute Assessment and Plan: Steroids have been discontinued because of hyperglycemia. Off IV fluids. Increase Lantus to 20 units SC BID. Increase SSI to Q4H Start trickle TF (7) DVT prophylaxis: Code(s): Z29.9 - Encounter for prophylactic measures, unspecified Status: Acute Assessment and Plan: Lovenox (8) Hyperkalemia: Code(s): E87.5 - Hyperkalemia Status: Acute Assessment and Plan: Resolved. Monitor Additional Plan Pepcid for SUP Pt awaits bed at [facility] Full code for now Critical care time spent: 40 minutes Due to a high probability of clinically significant, life threatening deterioration, the patient required my highest level of preparedness to intervene emergently and I personally spent this critical care time directly and personally managing the patient. This critical care time included obtaining a history; examining the patient; pulse oximetry; ordering and review of studies; arranging urgent treatment with development of a management plan; evaluation of patient's response to treatment; frequent reassessment; and discussions with other providers. It was exclusive of separately billable procedu
[2019-04-15] MEDS: FUROSEMIDE INJ 40 MG/4 ML VIAL IV PUSH ×2 (07:25→16:46)
[2019-04-15 07:49] LABS: Glucose Point of Care 202 (65-105)
[2019-04-15] MEDS: INSULIN GLARGINE (*BKC) 100 UNITS/ML 20 UNITS SUB-Q (08:17)
[2019-04-15] MEDS: INSULIN ASPART (*BKC) 100 UNITS/ML SUB-Q ×3 (08:17→18:03)
[2019-04-15] MEDS: DORNASE ALFA INH SOLN 1 MG/ML 2.5 ML AMP 2.5 MG INHALATION (08:23)
[2019-04-15] MEDS: FAMOTIDINE 20 MG/2 ML VIAL IV PUSH (08:25)
[2019-04-15] MEDS: ENOXAPARIN 40 MG/0.4 ML SYRINGE SUB-Q (08:25)
[2019-04-15] MEDS: ACETAMINOPHEN ELIXIR 325 MG/10.15 ML UDC 650 MG PO ×2 (10:13→16:57)
--- NOTE | 2019-04-15 11:21 | P.PNIM_ITS ---
Progress Note: A&P Assessment and Plan (1) Community acquired pneumonia: Qualifiers: Laterality: unspecified laterality Qualified Code(s): J18.9 - Pneumonia, unspecified organism Code(s): J18.9 - Pneumonia, unspecified organism Status: Acute Assessment and Plan: * Post influenza B * This may be viral, secondary bacterial, or ARDS * Vancomycin, cefepime, 1 dose of Rapivab 04/10 * IV steroids * Bronchodilators * Ventilatory support * Pulmonary toilet * 04/12 CXR with slight improvement * 04/13 CXR not much change * 04/14 CXR w/o improvement, furosemide x1, peep at 16 & fio2 at 100% * 04/15 Febrile overnight to 103.4 CXR w/o improvement. Continue furosemide. Vent PC, FIO2 80%, PEEP 16, pk press 22 (2) Acute respiratory failure with hypoxemia: Code(s): J96.01 - Acute respiratory failure with hypoxia Status: Acute Assessment and Plan: * Due to influenza B with possible postviral bacterial pneumonia, asthma exacerbation, possible ARDS * Tx as above (3) Asthma exacerbation: Qualifiers: Asthma severity: severe Asthma persistence: persistent Qualified Code(s): J45.51 - Severe persistent asthma with (acute) exacerbation Code(s): J45.901 - Unspecified asthma with (acute) exacerbation Status: Acute Assessment and Plan: * Due to influenza with superimposed pneumonia * Tx as above (4) Diabetes mellitus: Qualifiers: Diabetes mellitus type: type 2 Diabetes mellitus tank terminal gauger insulin use: without tank terminal gauger use Diabetes mellitus complication status: with hyperglycemia Qualified Code(s): E11.65 - Type 2 diabetes mellitus with hyperglycemia Code(s): E11.9 - Type 2 diabetes mellitus without complications Status: Acute Assessment and Plan: * 04/10 Blood sugar up to 476 * IV insulin 04/10 * 04/13 Continue basal and SSI * 04/14 AM BS 169 * 04/15 AM BS 196 (5) Hypertension, essential: Code(s): I10 - Essential (primary) hypertension Status: Acute Assessment and Plan: * Hold antihypertensives and monitor (6) Influenza B: Code(s): J10.1 - Influenza due to other identified influenza virus with other respiratory manifestations Status: Acute Assessment and Plan: * too late in the course for antivirals (7) Restrictive lung disease: Code(s): J98.4 - Other disorders of lung Status: Acute Assessment and Plan: * Due to morbid obesity (8) Sleep apnea: Qualifiers: Sleep apnea type: obstructive Qualified Code(s): G47.33 - Obstructive sleep apnea (adult) (pediatric) Code(s): G47.30 - Sleep apnea, unspecified Status: Acute Assessment and Plan: * ventilatory support (9) Hypothyroid: Qualifiers: Hypothyroidism type: acquired Qualified Code(s): E03.9 - Hypothyroidism, unspecified Code(s): E03.9 - Hypothyroidism, unspecified Status: Acute Assessment and Plan: * Continue levothyroxine (10) GERD (gastroesophageal reflux disease): Qualifiers: Esophagitis presence: esophagitis presence not specified Qualified Code(s): K21.9 - Gastro-esophageal reflux disease without esophagitis Code(s): K21.9 - Gastro-esophageal reflux disease without esophagitis Status: Acute Assessment and Plan: * PPI for GI prophylaxis Subjective Date/time seen: 04/15/19 11:21 Interval history: On vent. Sedated and paralyzed. Review of Systems Review of Systems: ROS unobtainable:
--- NOTE | 2019-04-15 11:21 | PM.IMPN ---
Progress Note: A&P Assessment and Plan (1) Community acquired pneumonia: Qualifiers: Laterality: unspecified laterality Qualified Code(s): J18.9 - Pneumonia, unspecified organism Code(s): J18.9 - Pneumonia, unspecified organism Status: Acute Assessment and Plan: Post influenza B This may be viral, secondary bacterial, or ARDS Vancomycin, cefepime, 1 dose of Rapivab 04/10 IV steroids Bronchodilators Ventilatory support Pulmonary toilet 04/12 CXR with slight improvement 04/13 CXR not much change 04/14 CXR w/o improvement, furosemide x1, peep at 16 & fio2 at 100% 04/15 Febrile overnight to 103.4 CXR w/o improvement. Continue furosemide. Vent PC, FIO2 80%, PEEP 16, pk press 22 (2) Acute respiratory failure with hypoxemia: Code(s): J96.01 - Acute respiratory failure with hypoxia Status: Acute Assessment and Plan: Due to influenza B with possible postviral bacterial pneumonia, asthma exacerbation, possible ARDS Tx as above (3) Asthma exacerbation: Qualifiers: Asthma severity: severe Asthma persistence: persistent Qualified Code(s): J45.51 - Severe persistent asthma with (acute) exacerbation Code(s): J45.901 - Unspecified asthma with (acute) exacerbation Status: Acute Assessment and Plan: Due to influenza with superimposed pneumonia Tx as above (4) Diabetes mellitus: Qualifiers: Diabetes mellitus type: type 2 Diabetes mellitus terminal computer operator insulin use: without terminal computer operator use Diabetes mellitus complication status: with hyperglycemia Qualified Code(s): E11.65 - Type 2 diabetes mellitus with hyperglycemia Code(s): E11.9 - Type 2 diabetes mellitus without complications Status: Acute Assessment and Plan: 04/10 Blood sugar up to 476 IV insulin 04/10 04/13 Continue basal and SSI 04/14 AM BS 169 04/15 AM BS 196 (5) Hypertension, essential: Code(s): I10 - Essential (primary) hypertension Status: Acute Assessment and Plan: Hold antihypertensives and monitor (6) Influenza B: Code(s): J10.1 - Influenza due to other identified influenza virus with other respiratory manifestations Status: Acute Assessment and Plan: too late in the course for antivirals (7) Restrictive lung disease: Code(s): J98.4 - Other disorders of lung Status: Acute Assessment and Plan: Due to morbid obesity (8) Sleep apnea: Qualifiers: Sleep apnea type: obstructive Qualified Code(s): G47.33 - Obstructive sleep apnea (adult) (pediatric) Code(s): G47.30 - Sleep apnea, unspecified Status: Acute Assessment and Plan: ventilatory support (9) Hypothyroid: Qualifiers: Hypothyroidism type: acquired Qualified Code(s): E03.9 - Hypothyroidism, unspecified Code(s): E03.9 - Hypothyroidism, unspecified Status: Acute Assessment and Plan: Continue levothyroxine (10) GERD (gastroesophageal reflux disease): Qualifiers: Esophagitis presence: esophagitis presence not specified Qualified Code(s): K21.9 - Gastro-esophageal reflux disease without esophagitis Code(s): K21.9 - Gastro-esophageal reflux disease without esophagitis Status: Acute Assessment and Plan: PPI for GI prophylaxis Subjective Date/time seen: 04/15/19 11:21 Interval history: On vent. Sedated and paralyzed. Review of Systems Review of Systems: ROS unobtainable: unobtainable due to endotracheal tube and unobtainable due to mental condition Exam Narrative: Exam Narrative: GENERAL: Morbidly obese young adult female HEENT: PERRL, pharyngeal mucosa pink and intact. ET tube in place NECK: No JVD, adenopathy, or thyromegaly CHEST: Coarse rhonchi. Scattered crackles. HEART: NL S1/S2, regular, no murmur ABDOMEN: BS+, soft, nontender, no mass, no bruits EXTREMITIES: No cyanosis, no pitting edema, no clubbing NEUROLOGIC:
[2019-04-15 12:54] LABS: Glucose Point of Care 309 (65-105)
[2019-04-15 14:22] LABS: Blood Urea Nitrogen 10 mg/dL (7-17); Calcium 7.6 mg/dL (8.4-10.2); Carbon Dioxide 31 mmol/L (22-30); Chloride 88 mmol/L (98-107); Estimated Glomerular Filt Rate > 60; Glucose 308 mg/dL (65-105); Potassium 3.6 mmol/L (3.4-5.0); Sodium 130 mmol/L (137-145)
[2019-04-15] MEDS: ALTEPLASE 2 MG VIAL (CATHFLO) IV PUSH (15:54)
[2019-04-15 17:59] LABS: Glucose Point of Care 330 (65-105)
--- NOTE | 2019-04-15 20:06 | PCRCNOTE ---
VENTILATOR DISCONTINUED. PLACED PT ON TRANSPORT VENTILATOR [facility] WITH SETTINGS OF PC22, R26, 100%. PEEP INCREASED TO [address] CAMACHO TELEPHONE ORDER. PT SPO2 97%.
--- NOTE | 2019-05-07 15:29 | P.TS_ITS ---
Transfer Discharge Sum: Prov Provider Date of admission: 04/10/19 10:50 Primary care physician: Senthil Nicholas, MD Admitting clinician: Tono Frank MD Consults: 04/10/19 10:52 Consult to Physician Routine Comment: ED CONSULTED Consulting Provider: Crystal Conner housecalls nurse/MD group to consult: Dr. Conner Reason for consultation: Respiraory distress Has provider been notified: Yes Attending physician on discharge: Tono Frank Discharging clinician: Tono Frank Anticipated date of transfer: 04/15/19 Receiving physician/facility: [place] DS: Diagnosis Admitting Diagnosis Admitting Diagnosis: Pneumonia, unspecified organism Discharge Diagnosis (1) Community acquired pneumonia: Qualifiers: Laterality: unspecified laterality Qualified Code(s): J18.9 - Pneumonia, unspecified organism Code(s): J18.9 - Pneumonia, unspecified organism Status: Acute Assessment and Plan: * Post influenza B * This may be viral, secondary bacterial, or ARDS * Vancomycin, cefepime, 1 dose of Rapivab 04/10 * IV steroids * Bronchodilators * Ventilatory support * Pulmonary toilet * 04/12 CXR with slight improvement * 04/13 CXR not much change * 04/14 CXR w/o improvement, furosemide x1, peep at 16 & fio2 at 100% * 04/15 Febrile overnight to 103.4 CXR w/o improvement. Continue furosemide. Vent PC, FIO2 80%, PEEP 16, pk press 22 (2) Acute respiratory failure with hypoxemia: Code(s): J96.01 - Acute respiratory failure with hypoxia Status: Acute Assessment and Plan: * Due to influenza B with possible postviral bacterial pneumonia, asthma exacerbation, possible ARDS * Tx as above (3) Asthma exacerbation: Qualifiers: Asthma severity: severe Asthma persistence: persistent Qualified Code(s): J45.51 - Severe persistent asthma with (acute) exacerbation Code(s): J45.901 - Unspecified asthma with (acute) exacerbation Status: Acute Assessment and Plan: * Due to influenza with superimposed pneumonia * Tx as above (4) Diabetes mellitus: Qualifiers: Diabetes mellitus type: type 2 Diabetes mellitus rn long term care insulin use: without jail use Diabetes mellitus complication status: with hyperglycemia Qualified Code(s): E11.65 - Type 2 diabetes mellitus with hyperglycemia Code(s): E11.9 - Type 2 diabetes mellitus without complications Status: Acute Assessment and Plan: * 04/10 Blood sugar up to 476 * IV insulin 04/10 * 04/13 Continue basal and SSI * 04/14 AM BS 169 * 04/15 AM BS 196 (5) Hypertension, essential: Code(s): I10 - Essential (primary) hypertension Status: Acute Assessment and Plan: * Hold antihypertensives and monitor (6) Influenza B: Code(s): J10.1 - Influenza due to other identified influenza virus with other respiratory manifestations Status: Acute Assessment and Plan: * too late in the course for antivirals (7) Restrictive lung disease: Code(s): J98.4 - Other disorders of lung Status: Acute Assessment and Plan: * Due to morbid obesity (8) Sleep apnea: Qualifiers: Sleep apnea type: obstructive Qualified Code(s): G47.33 - Obstructive sleep apnea (adult) (pediatric) Code(s): G47.30 - Sleep apnea, unspecified Status: Acute Assessment and Plan: * ventilatory support (9) Hypothyroid: Qualifiers: Hypothyroidism type: acquired
--- NOTE | 2019-05-07 15:29 | PM.TDS ---
Transfer Discharge Sum: Prov Provider Date of admission: 04/10/19 10:50 Primary care physician: Senthil Nicholas, MD Admitting clinician: Tono Frank MD Consults: 04/10/19 10:52 Consult to Physician Routine Comment: ED CONSULTED Consulting Provider: Crystal Conner yard caller/MD group to consult: Dr. Conner Reason for consultation: Respiraory distress Has provider been notified: Yes Attending physician on discharge: Tono Frank Discharging clinician: Tono Frank Anticipated date of transfer: 04/15/19 Receiving physician/facility: [facility] DS: Diagnosis Admitting Diagnosis Admitting Diagnosis: Pneumonia, unspecified organism Discharge Diagnosis (1) Community acquired pneumonia: Qualifiers: Laterality: unspecified laterality Qualified Code(s): J18.9 - Pneumonia, unspecified organism Code(s): J18.9 - Pneumonia, unspecified organism Status: Acute Assessment and Plan: Post influenza B This may be viral, secondary bacterial, or ARDS Vancomycin, cefepime, 1 dose of Rapivab 04/10 IV steroids Bronchodilators Ventilatory support Pulmonary toilet 04/12 CXR with slight improvement 04/13 CXR not much change 04/14 CXR w/o improvement, furosemide x1, peep at 16 & fio2 at 100% 04/15 Febrile overnight to 103.4 CXR w/o improvement. Continue furosemide. Vent PC, FIO2 80%, PEEP 16, pk press 22 (2) Acute respiratory failure with hypoxemia: Code(s): J96.01 - Acute respiratory failure with hypoxia Status: Acute Assessment and Plan: Due to influenza B with possible postviral bacterial pneumonia, asthma exacerbation, possible ARDS Tx as above (3) Asthma exacerbation: Qualifiers: Asthma severity: severe Asthma persistence: persistent Qualified Code(s): J45.51 - Severe persistent asthma with (acute) exacerbation Code(s): J45.901 - Unspecified asthma with (acute) exacerbation Status: Acute Assessment and Plan: Due to influenza with superimposed pneumonia Tx as above (4) Diabetes mellitus: Qualifiers: Diabetes mellitus type: type 2 Diabetes mellitus alf insulin use: without youth specialist use Diabetes mellitus complication status: with hyperglycemia Qualified Code(s): E11.65 - Type 2 diabetes mellitus with hyperglycemia Code(s): E11.9 - Type 2 diabetes mellitus without complications Status: Acute Assessment and Plan: 04/10 Blood sugar up to 476 IV insulin 04/10 04/13 Continue basal and SSI 04/14 AM BS 169 04/15 AM BS 196 (5) Hypertension, essential: Code(s): I10 - Essential (primary) hypertension Status: Acute Assessment and Plan: Hold antihypertensives and monitor (6) Influenza B: Code(s): J10.1 - Influenza due to other identified influenza virus with other respiratory manifestations Status: Acute Assessment and Plan: too late in the course for antivirals (7) Restrictive lung disease: Code(s): J98.4 - Other disorders of lung Status: Acute Assessment and Plan: Due to morbid obesity (8) Sleep apnea: Qualifiers: Sleep apnea type: obstructive Qualified Code(s): G47.33 - Obstructive sleep apnea (adult) (pediatric) Code(s): G47.30 - Sleep apnea, unspecified Status: Acute Assessment and Plan: ventilatory support (9) Hypothyroid: Qualifiers: Hypothyroidism type: acquired Qualified Code(s): E03.9 - Hypothyroidism, unspecified Code(s): E03.9 - Hypothyroidism, unspecified Status: Acute Assessment and Plan: Continue levothyroxine (10) GERD (gastroesophageal reflux disease): Qualifiers: Esophagitis presence: esophagitis presence not specified Qualified Code(s): K21.9 - Gastro-esophageal reflux disease without esophagitis Code(s): K21.9 - Gastro-esophageal reflux disease without esophagitis Status: Acute Assessment a
== END 2019-04-15 20:00 | disposition short-term general hospital (02) | DRG 207 ==
LOC: ANHED 10:56 → ANHICU 14:08
PROVIDERS: Internal Medicine; Internal Medicine Critical Care Medicine; Admitting Provider Internal Medicine; Emergency Provider Family Medicine; PCP Internal Medicine; Visit Provider Internal Medicine
DX: J10.00 Influenza due to other identified influenza virus with unspecified type of pneumonia (principal); J96.01 Acute respiratory failure with hypoxia; Z68.45 Body mass index [BMI] 70 or greater, adult; J45.51 Severe persistent asthma with (acute) exacerbation; J18.9 Pneumonia, unspecified organism; F17.210 Nicotine dependence, cigarettes, uncomplicated; F32.9 Major depressive disorder, single episode, unspecified; E11.9 Type 2 diabetes mellitus without complications; K21.9 Gastro-esophageal reflux disease without esophagitis; E03.9 Hypothyroidism, unspecified; E66.9 Obesity, unspecified; J98.4 Other disorders of lung; G47.33 Obstructive sleep apnea (adult) (pediatric); E11.65 Type 2 diabetes mellitus with hyperglycemia; E66.01 Morbid (severe) obesity due to excess calories
CPT/HCPCS: 31500; 36415; 36600; 71045; 80048; 80053; 80202; 82375; 82805; 83036; 83050; 83605; 83735; 83880; 84100; 84145; 84484; 85025; 85027; 87040; 87070; 87081; 87205; 87804; 93005; 94002; 94003; 94640; 96365; 96367; 96375; 99285; A9270; C1751; C8929; C9113; J0131; J0692; J1650; J1815; J1940; J2250; J2547; J2704; J2930; J2997; J3010; J3370; J3480; J7030; J7040; J7050; J7060; J7120; Q9957

== ENCOUNTER 2020-08-03 16:10 | Emergency (ER) | payer OTHER, SELFPAY ==
--- NOTE | 2020-08-03 16:19 | ED.URI ---
HPI - URI/Sore Throat General Chief Complaint: Headache Stated Complaint: Migraines,Ear pain Time Seen by Provider: 08/03/20 16:22 Source: patient and RN notes reviewed Mode of arrival: ambulatory Limitations: no limitations History of Present Illness HPI Narrative: 29-year-old female presents to the [facility] with complaints of a frontal headache, bilateral ear pain for the last week. States that she has felt feverish but has not checked it. Has a history of morbid obesity, hypertension, GERD, thyroid issues, diabetes. Patient states that she does not take her medications because she does not like swallowing pills. States that her primary care took her off her blood pressure medication. Discussed the importance of taking her diabetes and her thyroid medication. Related Data Home Medications Medication Instructions Recorded Confirmed metformin 500 mg PO BID 08/03/20 08/03/20 Allergies Allergy/AdvReac Type Severity Reaction Status Date / Time amoxicillin Allergy Unknown RASH, Verified 12/13/17 18:02 DIFFICULTY BREATHING Review of Systems Review of Systems: All systems reviewed & are unremarkable except as noted in HPI and below Constitutional: Constitutional: Reports as per HPI, Reports chills and Reports fever(s) (Subjective) Eyes: Eyes: Reports no additional eye complaints, Denies change in vision and Denies photophobia ENT: Reports as per HPI Comments: Sinus pain, pressure, bilateral ear pain Cardiovascular: Cardiovascular: Reports no additional cardiovascular complaints and Denies chest pain Respiratory: Respiratory: Reports no additional respiratory complaints, Denies cough and Reports dyspnea (States I am always out of breath ) Gastrointestinal: Gastrointestinal: Reports no additional gastrointestinal complaints, Denies abdominal pain, Denies nausea and Denies vomiting Musculoskeletal: Musculoskeletal: Reports no additional musculoskeletal complaints and Denies back pain Integumentary/Breasts: Skin/Breast: Reports system reviewed and no additional complaints, except as docu and Denies rash Neurologic: Reports as per HPI, Denies vertigo, Denies syncope, Reports headache(s) (Frontal sinus), Denies focal weakness and Denies weakness Psychiatric: Psychiatric: Reports no additional psychiatric complaints Allergic/Immunologic: Allergic/Immunologic: Reports no additional allergic/immunologic complaints, Denies lip swelling, Denies throat swelling, Denies tongue swelling and Denies wheezing [facility] Past Medical History Medical History (Updated 08/04/20 @ 14:53 by Florence George) Asthma Depression Diabetes mellitus GERD (gastroesophageal reflux disease) H/O: HTN (hypertension) Hypothyroid Influenza Obesity Sleep apnea Surgical History Surgical History No history of previous surgery Family History Family History Mother Diabetes mellitus Social History Social History Smoking packs per day: 1 Smoking cigarettes per day: 20.0 Smoking status: Current every day smoker Tobacco type: cigarettes Alcohol intake: current Drinks per week: 5 Substance use: never Gender identity (if verbalized by the patient): Female Spiritual care concerns: No Agree to blood products: Yes Comments At the time of my signature, I reviewed and agree with the nursing past medical, surgical, social, and family history. There is no relevant family history pertinent to the patient complaint. Exam Const: General: no acute distress, alert and ill appearing acutely and chronically Nutritional Appearance: well nourished and obese morbidly obese Orientation/consciousness: patient oriented x3 HENMT: Head: normal to inspection Ears: hearing grossly normal bilaterally, external ears normal and TM's normal bilaterally General nose exam: Normal external nos
[2020-08-03 16:27] VITALS: BP 138/66; PULSE 82; RESP 16; TEMP 37.2; O2SAT 99
[2020-08-03 16:40] LABS: Glucose Point of Care 259 mg/dl (65-105)
[2020-08-03 16:51] VITALS: BP 138/66; PULSE 82; RESP 16; TEMP 37.2; O2SAT 99
== END 2020-08-03 16:47 | disposition home or self-care (01) ==
PROVIDERS: Emergency Provider Nurse Practitioner; PCP Family Medicine
DX: J32.9 Chronic sinusitis, unspecified (principal); F17.210 Nicotine dependence, cigarettes, uncomplicated; J45.909 Unspecified asthma, uncomplicated; E11.9 Type 2 diabetes mellitus without complications; K21.9 Gastro-esophageal reflux disease without esophagitis; E03.9 Hypothyroidism, unspecified; G47.30 Sleep apnea, unspecified; E66.9 Obesity, unspecified; Z68.45 Body mass index [BMI] 70 or greater, adult
CPT/HCPCS: 82948; 99213; G0463

== ENCOUNTER 2020-10-05 18:15 | Emergency (ER) | payer OTHER, SELFPAY ==
--- NOTE | ~2020-10-05 | XR_ITS ---
XR chest 2V DATE: 10/05/2020 18:55 INDICATION: Cough, shortness of breath TECHNIQUE: 2 views COMPARISON: April 15, 2019 portable AP chest FINDINGS: Normal heart size. No pulmonary infiltrate or consolidation, pleural effusion or pulmonary vascular congestion or pneumothorax is detected. IMPRESSION: No active cardiopulmonary disease Reviewed, dictated and finalized at location A.
--- NOTE | 2020-10-05 18:24 | ED.SOB ---
HPI - SOB/Dyspnea General Chief Complaint: Upper Respiratory Infection Stated Complaint: Breathing Problems,Cough Time Seen by Provider: 10/05/20 18:32 Source: patient and RN notes reviewed Mode of arrival: ambulatory Limitations: no limitations History of Present Illness HPI Narrative: 30-year-old female with history of morbid obesity, acute respiratory failure, asthma, diabetes presents with concern for cough and shortness of breath. Reports to 3-day history of worsening short of breath. Reports shortness of breath at baseline due to obesity, however symptoms have been worsening. She also reports a new cough, rhinorrhea, nasal congestion. She denies any known sick contacts. Reports her blood sugar has been slightly elevated. She reports headache. Denies fever, body aches, chills, sweats. She denies any [id number] mention MD elicited complaint: shortness of breath and cough Related Data Home Medications Medication Instructions Recorded Confirmed metformin 500 mg PO BID 08/03/20 08/03/20 Allergies Allergy/AdvReac Type Severity Reaction Status Date / Time amoxicillin Allergy Unknown RASH, Verified 10/05/20 18:32 DIFFICULTY BREATHING Review of Systems Review of Systems: CONSTITUTIONAL: Denies malaise, chills, sweats, or fever. EYES: Denies visual changes, redness, or discharge. ENT: Reports rhinorrhea, congestion. Denies sinus pain, otalgia and sore throat. CARDIOVASCULAR: Denies chest pain, palpitations, or edema. RESPIRATORY: Reports cough, dyspnea. GASTROINTESTINAL: Denies abdominal pain, nausea, vomiting, diarrhea SKIN: Denies rash or itching. MUSCULOSKELETAL: Denies myalgia. NEUROLOGIC: Denies headache. All systems reviewed & are unremarkable except as noted in HPI and below [facility] Past Medical History Medical History (Updated 10/05/20 @ 19:26 by Florence Farnsworth NP) Asthma Depression Diabetes mellitus GERD (gastroesophageal reflux disease) H/O: HTN (hypertension) Hypothyroid Influenza Obesity Sleep apnea Surgical History Surgical History No history of previous surgery Family History Family History Mother Diabetes mellitus Social History Social History Smoking packs per day: 1 Smoking cigarettes per day: 20.0 Smoking status: Current every day smoker Tobacco type: cigarettes Alcohol intake: current Drinks per week: 5 Alcohol use details: Drinks only occasionally Substance use: never Gender identity (if verbalized by the patient): Female Spiritual care concerns: No Agree to blood products: Yes Comments At time of signature, agree with nursing past medical, surgical, social and family history. There is no relevant family history pertinent to the presenting complaint Exam Narrative: GENERAL: Well-appearing, well-nourished, and in no acute distress. HEAD: Normocephalic EYES: PERRLA, conjunctivae clear ENT: Nares clear, clear discharge. Mucous membranes moist. TM pearly nielsen with sharp light reflex bilaterally; no tragal tenderness. Oropharynx not erythematous without lesions. Tonsils not enlarged and without exudate, no drooling, no hoarseness, no trismus, uvula midline. NECK: Supple. No lymphadenopathy CHEST: Clear to auscultation, breath sounds equal. No wheezing, rhonchi, rales, or stridor. Mild tachypnea and conversational dyspnea HEART: Regular rate and rhythm. No murmur heard. SKIN: Warm, dry, no rash. NEURO: Alert and oriented x3. PSYCH: Normal mood and affect Course Course Emergency Course: Patient is aware of, understands and agrees to be seen in the emergency department. Anticipatory guidance given. Patient agrees to proceed directly to the the emergency department. Portions of this record may have been created with voice recognition software Vital Signs Vital signs: Reviewed. Patient co
[2020-10-05 18:25] VITALS: BP 151/108; PULSE 106; RESP 20; TEMP 37.3; O2SAT 99
[2020-10-05 19:02] LABS: Glucose Point of Care 367 mg/dl (65-105)
== END 2020-10-05 19:30 | disposition short-term general hospital (02) ==
PROVIDERS: Emergency Provider Nurse Practitioner; PCP Family Medicine
DX: R06.02 Shortness of breath (principal); Z20.822 Contact with and (suspected) exposure to COVID-19; F17.210 Nicotine dependence, cigarettes, uncomplicated; J45.909 Unspecified asthma, uncomplicated; E11.9 Type 2 diabetes mellitus without complications; I10 Essential (primary) hypertension; E03.9 Hypothyroidism, unspecified; E66.01 Morbid (severe) obesity due to excess calories; Z68.45 Body mass index [BMI] 70 or greater, adult; G47.30 Sleep apnea, unspecified
CPT/HCPCS: 71046; 82948; 87426; 99213; C9803; G0463

== ENCOUNTER 2020-10-05 19:59 | Emergency (ER) | payer OTHER, SELFPAY ==
--- NOTE | ~2020-10-05 | XR_ITS ---
XR chest 2V DATE: 10/05/2020 20:44 INDICATION: Shortness of breath, congestion. History of asthma, hypertension, diabetes TECHNIQUE: AP and lateral views COMPARISON: 10/05/2020 2 view FINDINGS: The AP chest is apical lordotic projection. No pulmonary infiltrate or consolidation, pleural effusion or pulmonary vascular congestion or pneumo thorax is detected. IMPRESSION: Limited examination; no active pulmonary disease Reviewed, dictated and finalized at location A.
[2020-10-05 20:05] VITALS: BP 214/100; PULSE 101; RESP 26; TEMP 36.2; O2SAT 95
--- NOTE | 2020-10-05 20:08 | ECG_ITS ---
Measurements Intervals [place] Rate: 104 P: CT: 0 QRS: 35 QRSD: 98 T: 44 QT: 352 QTc: 465 Interpretive Statements SINUS TACHYCARDIA DELAYED PRECORDIAL R/S TRANSITION BASELINE ARTIFACT- I, III, AVR, AVL, AVF, V3-V6 BORDERLINE ECG Electronically Signed On 10-05-2020 20:23:54 CDT by Goldy Iqbal D.O.
[2020-10-05 20:28] LABS: Basophils Absolute Auto 0.1 K/mm3 (0.0-0.1); Basophils Percent Auto 0.9 % (0.2-1.2); Eosinophils Absolute Auto 0.3 K/mm3 (0-0.3); Eosinophils Percent Auto 3.5 % (0-4.4); Hematocrit 41.4 % (37.0-47.0); Hemoglobin 12.7 g/dL (12.0-15.0); Immature Granulocyte Absolute 0.12 K/mm3 (0.00-0.031); Immature Granulocyte Percent A 1.3 % (0-0.5); Lymphocytes Absolute Auto 2.02 K/mm3 (0.9-3.2); Lymphocytes Percent Auto 22.2 % (18.3-44.2); Mean Corpuscular HGB Conc 30.7 g/dl (32-36); Mean Corpuscular Hemoglobin 26.5 pg (26-34); Mean Corpuscular Volume 86.4 fl (80-100); Mean Platelet Volume 10.9 fl (7.4-10.4); Monocytes Absolute Auto 0.4 K/mm3 (0.1-0.6); Monocytes Percent Auto 4.1 % (2.6-8.5); Neutrophils Absolute Auto 6.2 K/mm3 (1.3-6.7); Platelet Count Result 333 k/mm3 (150-375); Red Blood Count 4.79 M/mm3 (4.2-5.4); Red Cell Distribution Width 14.3 % (11.5-14.5); White Blood Count 9.1 K/mm3 (4.5-10.0)
[2020-10-05 20:38] LABS: Anion Gap 9 mmol/L (8-16); Blood Urea Nitrogen 11 mg/dL (7-17); Calcium 9.3 mg/dL (8.4-10.2); Carbon Dioxide 23 mmol/L (22-30); Chloride 99 mmol/L (98-107); Estimated Glomerular Filt Rate > 60; Glucose 372 mg/dL (65-110); Potassium 4.1 mmol/L (3.4-5.0); Sodium 131 mmol/L (137-145)
[2020-10-05 21:31] VITALS: BP 175/96; PULSE 104; RESP 13; O2SAT 97
[2020-10-05 23:11] VITALS: BP 150/88; PULSE 107; RESP 16; O2SAT 95
[2020-10-05] MEDS: SODIUM CHLORIDE 0.9% IV 1,000 ML 999 ML IV CONT (23:28)
[2020-10-05] MEDS: KETOROLAC 30 MG/ML VIAL (*BKC) IV PUSH (23:30)
[2020-10-05] MEDS: diphenhydrAMINE HCl INJ 50 MG/ML VIAL IV PUSH (23:32)
[2020-10-05] MEDS: PROCHLORPERAZINE EDISYLATE 10 MG/2 ML VIAL IV PUSH (23:36)
--- NOTE | 2020-10-05 23:40 | ED.GENADULT ---
HPI - General Adult General Chief complaint: Headache Stated complaint: SOB/ HTN/ headaches/ runny nose/ head pressure Time Seen by Provider: 10/05/20 22:59 History of Present Illness HPI narrative: Patient is a 30-year-old female who presents the emergency department with chief complaint of shortness of breath and headache. Patient states over the last several days she has had a runny nose ear pain and has also felt as though she has been slightly short of breath. Patient was seen in care had a rapid Covid test that was negative and a negative chest x-ray. The patient states that her blood sugars were elevated at urgent care but reports that she takes Metformin for her diabetes and reports that she only intermittently checks her blood sugar before and usually does not really check her blood sugar. Patient states that she has a pounding headache at this time reports that she has discomfort in bilateral ears denies any drainage out of her ears. The patient denies fever reports that she has had one of her 2 COVID-19 vaccinations. Related Data Home Medications Medication Instructions Recorded Confirmed metformin 500 mg PO BID 08/03/20 10/05/20 Allergies Allergy/AdvReac Type Severity Reaction Status Date / Time amoxicillin Allergy Unknown RASH, Verified 10/05/20 18:32 DIFFICULTY BREATHING Review of Systems Review of Systems: A 10 system review of systems was completed on the patient and is negative except for what is stated in the HPI. Nursing and ancillary documentation was reviewed. [facility] Past Medical History Medical History (Updated 10/06/20 @ 01:40 by Florin Dominguez MD) Asthma Depression Diabetes mellitus GERD (gastroesophageal reflux disease) H/O: HTN (hypertension) Hypothyroid Influenza Obesity Sleep apnea Surgical History Surgical History No history of previous surgery Family History Family History Mother Diabetes mellitus Social History Social History Smoking packs per day: 1 Smoking cigarettes per day: 20.0 Smoking status: Current every day smoker Tobacco type: cigarettes Alcohol intake: current Drinks per week: 5 Alcohol use details: Drinks only occasionally Substance use: never Gender identity (if verbalized by the patient): Female Spiritual care concerns: No Agree to blood products: Yes Exam Narrative: GENERAL: Well-appearing, well-nourished, and in no acute distress. HEAD: Normocephalic, atraumatic. EYES: PERRLA and EOMI. ENT: Nares clear, no rhinorrhea or epistaxis. Mucous membranes moist. There is erythema of the right tympanic membrane, NECK: Supple. CHEST: Clear to auscultation. No respiratory distress. HEART: Regular rate and rhythm. No murmur heard. Normal peripheral pulses. ABDOMEN: Soft, nontender, nondistended, normal active bowel sounds. EXTREMITIES: Normal range of motion. No edema. SKIN: Warm, dry, no rash. NEURO: No focal deficits. Alert and oriented x3. PSYCH: Normal mood and affect. Course Vital Signs Vital signs: Vital Signs Temperature 36.2 C L 10/05/20 20:05 Pulse Rate 101 H 10/05/20 20:05 Respiratory Rate 26 H 10/05/20 20:05 Blood Pressure 214/100 H 10/05/20 20:05 Pulse Oximetry 95 10/05/20 20:05 Temperature 36.2 C L 10/05/20 20:05 Pulse Rate 97 10/06/20 00:28 Respiratory Rate 29 H 10/06/20 00:28 Blood Pressure 151/90 H 10/06/20 00:28 Pulse Oximetry 95 10/06/20 00:28 Medical Decision Making Vital Signs Vital Signs: Vital Signs Temperature 36.2 C L 10/05/20 20:05 Pulse Rate 101 H 10/05/20 20:05 Respiratory Rate 26 H 10/05/20 20:05 Blood Pressure 214/100 H 10/05/20 20:05 Pulse Oximetry 95 10/05/20 20:05 Temperature 36.2 C L 10/05/20 20:05 Pulse Rate 97 10/06/20 00:
[2020-10-05] MEDS: IPRATROPIUM BR 0.02% INH SOLN 0.5 MG/2.5 ML VIAL INHALATION (23:48)
[2020-10-05] MEDS: ALBUTEROL SULFATE NEB 2.5 MG/0.5 ML INH 5 MG INHALATION (23:48)
[2020-10-06 00:28] VITALS: BP 151/90; PULSE 97; RESP 29; O2SAT 95
[2020-10-06 01:45] LABS: Glucose Point of Care 293 mg/dl (65-105)
[2020-10-06 02:08] VITALS: BP 161/93; PULSE 97; RESP 18; O2SAT 98
== END 2020-10-06 02:10 | disposition home or self-care (01) ==
PROVIDERS: Emergency Medicine; Emergency Provider Emergency Medicine; PCP Family Medicine
DX: J06.9 Acute upper respiratory infection, unspecified (principal); E11.65 Type 2 diabetes mellitus with hyperglycemia; H66.91 Otitis media, unspecified, right ear; J45.909 Unspecified asthma, uncomplicated; K21.9 Gastro-esophageal reflux disease without esophagitis; I10 Essential (primary) hypertension; E03.9 Hypothyroidism, unspecified; G47.30 Sleep apnea, unspecified; E66.9 Obesity, unspecified; Z68.45 Body mass index [BMI] 70 or greater, adult; F17.210 Nicotine dependence, cigarettes, uncomplicated; Z79.84 Long term (current) use of oral hypoglycemic drugs; R00.0 Tachycardia, unspecified
CPT/HCPCS: 36415; 71046; 80048; 82948; 85025; 87426; 93005; 94640; 96361; 96374; 96375; 99213; 99284; C9803; G0463; J0780; J1200; J1885; J7030

== ENCOUNTER 2020-11-03 12:18 | Emergency (ER) | payer OTHER, SELFPAY ==
--- NOTE | ~2020-11-03 | XR_ITS ---
EXAMINATION: XR chest 2V EXAM DATE: 11/03/2020 12:56 INDICATION: Chest pain. Asthma. TECHNIQUE: Frontal and lateral projections of the chest obtained and reviewed. Comparison is made to prior examination from 10/05/2020. FINDINGS: The lungs are clear. There are no pleural effusions. The cardiomediastinal silhouette is within normal limits. There is no pneumothorax suspected. The bones and soft tissues are unremarkab le. IMPRESSION: No acute cardiopulmonary findings. Reviewed, dictated and finalized at location B.
[2020-11-03 12:23] VITALS: BP 192/114; PULSE 100; TEMP 36.6; O2SAT 96
[2020-11-03 12:33] VITALS: BP 192/114; PULSE 100; RESP 20; TEMP 36.7; O2SAT 95
--- NOTE | 2020-11-03 12:35 | ECG_ITS ---
Measurements Intervals [place] Rate: 71 P: 46 SC: 165 QRS: -18 QRSD: 102 T: 50 QT: 404 QTc: 439 Interpretive Statements SINUS RHYTHM NORMAL ECG Electronically Signed On 11-03-2020 12:49:05 CDT by Goldy Iqbal D.O.
[2020-11-03 13:53] VITALS: BP 186/98; PULSE 69; RESP 30; O2SAT 96
[2020-11-03 14:00] VITALS: BP 159/102; PULSE 70; RESP 19; O2SAT 94
[2020-11-03 14:01] LABS: Glucose Point of Care 187 mg/dl (65-105)
[2020-11-03] MEDS: ASPIRIN 81 MG CHEWABLE TABLET 324 MG PO (14:07)
--- NOTE | 2020-11-03 15:05 | ED.RECABL ---
HPI - Recheck/Abnormal Lab/Rx General Chief Complaint: Recheck/Abnormal Lab/Rx Stated Complaint: High BP,BS, Low O2 Time Seen by Provider: 11/03/20 14:11 Source: patient Mode of arrival: ambulatory Limitations: no limitations History of Present Illness HPI narrative: 30-year-old female Here because her blood sugars were running high at home and because when her mom checked her blood pressure it was high as well She really does not have any particular complaints apart from chronic shortness of breath related to morbid obesity and sleep apnea No chest pain, no cough or fever Sounds like she recently started Metformin and lisinopril At triage here her blood sugar was 187 and with an appropriate sized cuff in the room her blood pressure was 159/102 Related Data Home Medications Medication Instructions Recorded Confirmed metformin 500 mg PO BID 08/03/20 10/05/20 Allergies Allergy/AdvReac Type Severity Reaction Status Date / Time amoxicillin Allergy Unknown RASH, Verified 11/03/20 14:01 DIFFICULTY BREATHING Review of Systems Review of Systems: All systems reviewed & are unremarkable except as noted in HPI and below Constitutional: Constitutional: Reports no additional constitutional complaints, Denies chills, Reports fatigue, Denies fever(s), Denies headache(s) and Reports weakness Eyes: Eyes: Reports no additional eye complaints and Denies change in vision ENT: Denies headache(s) and Denies sore throat Cardiovascular: Cardiovascular: Denies chest pain and Denies dyspnea Respiratory: Respiratory: Denies cough, Reports dyspnea and Denies wheezing Gastrointestinal: Gastrointestinal: Denies nausea and Denies vomiting Genitourinary: Genitourinary: Denies urinary frequency Musculoskeletal: Musculoskeletal: Denies deformity and Denies numbness Integumentary/Breasts: Skin/Breast: Denies wounds Neurologic: Denies headache(s), Denies focal weakness and Denies numbness Psychiatric: Psychiatric: Reports no additional psychiatric complaints Endocrine: Endocrine: Reports no additional endocrine complaints Hematologic/Lymphatic: Hematologic/Lymphatic: Reports no additional hematologic/lymphatic complaints Allergic/Immunologic: Allergic/Immunologic: Reports no additional allergic/immunologic complaints [facility] Past Medical History Medical History (Updated 11/03/20 @ 15:09 by Tanmay Guevara MD) Asthma Depression Diabetes mellitus GERD (gastroesophageal reflux disease) H/O: HTN (hypertension) Hypothyroid Influenza Obesity Sleep apnea Surgical History Surgical History No history of previous surgery Family History Family History Mother Diabetes mellitus Social History Social History Smoking packs per day: 1 Smoking cigarettes per day: 20.0 Smoking status: Current every day smoker Tobacco type: cigarettes Alcohol intake: current Drinks per week: 5 Alcohol use details: Drinks only occasionally Substance use: never Gender identity (if verbalized by the patient): Female Spiritual care concerns: No Agree to blood products: Yes Exam Const: General: alert; No healthy appearing Nutritional Appearance: obese morbidly obese Orientation/consciousness: patient oriented x3 HENMT: Head: normal to inspection, normocephalic and atraumatic Ears: external ears normal Eyes: Conjunctivae: conjunctivae normal EOM: EOMs intact bilaterally Neck: Neck: normal visual inspection, supple and no JVD Resp: Effort & Inspection: normal respiratory effort and not labored Auscultation: clear to auscultation bilaterally and other (BS =) Cardio: Rate: regular rate Rhythm: regular rhythm Heart sounds: no murmurs GI: GI Palp: Yes Soft to palpation and No Tenderness to palpation present (GI) Skin:
[2020-11-03 15:32] LABS: Basophils Absolute Auto 0.1 K/mm3 (0.0-0.1); Basophils Percent Auto 0.8 % (0.2-1.2); Eosinophils Absolute Auto 0.3 K/mm3 (0-0.3); Eosinophils Percent Auto 4.2 % (0-4.4); Hematocrit 35.8 % (37.0-47.0); Hemoglobin 11.2 g/dL (12.0-15.0); Immature Granulocyte Absolute 0.24 K/mm3 (0.00-0.031); Immature Granulocyte Percent A 3.2 % (0-0.5); Lymphocytes Absolute Auto 1.82 K/mm3 (0.9-3.2); Lymphocytes Percent Auto 24.6 % (18.3-44.2); Mean Corpuscular HGB Conc 31.3 g/dl (32-36); Mean Corpuscular Hemoglobin 27.3 pg (26-34); Mean Corpuscular Volume 87.3 fl (80-100); Monocytes Absolute Auto 0.3 K/mm3 (0.1-0.6); Monocytes Percent Auto 4.1 % (2.6-8.5); Neutrophils Absolute Auto 4.7 K/mm3 (1.3-6.7); Neutrophils Percent Auto 63.1 % (45.5-73.1); Platelet Count Result 271 k/mm3 (150-375); Red Cell Distribution Width 14.5 % (11.5-14.5); White Blood Count 7.4 K/mm3 (4.5-10.0)
[2020-11-03 15:41] LABS: Prothrombin Time 12.6 Seconds (11.1-14.7)
[2020-11-03 15:42] LABS: Partial Thromboplastin Time 28.5 SECONDS (22.3-36.8)
[2020-11-03 15:43] LABS: Anion Gap 9 mmol/L (8-16); Blood Urea Nitrogen 11 mg/dL (7-17); Calcium 8.7 mg/dL (8.4-10.2); Carbon Dioxide 25 mmol/L (22-30); Chloride 104 mmol/L (98-107); Estimated Glomerular Filt Rate > 60; Glucose 183 mg/dL (65-110); Potassium 3.9 mmol/L (3.4-5.0); Sodium 138 mmol/L (137-145)
[2020-11-03 15:56] LABS: Troponin I < 0.012 ng/mL (0.000-0.034)
[2020-11-03 15:58] VITALS: BP 176/99; PULSE 69; RESP 19; O2SAT 96
== END 2020-11-03 16:00 | disposition home or self-care (01) ==
PROVIDERS: Emergency Medicine; Emergency Provider Emergency Medicine; PCP Family Medicine
DX: E66.01 Morbid (severe) obesity due to excess calories (principal); E11.9 Type 2 diabetes mellitus without complications; I10 Essential (primary) hypertension; G47.30 Sleep apnea, unspecified; F32.9 Major depressive disorder, single episode, unspecified; E03.9 Hypothyroidism, unspecified; F17.210 Nicotine dependence, cigarettes, uncomplicated; Z87.09 Personal history of other diseases of the respiratory system; Z87.19 Personal history of other diseases of the digestive system
CPT/HCPCS: 36415; 71046; 80048; 82948; 84484; 85025; 85610; 85730; 93005; 99284; A9270

== ENCOUNTER 2020-11-07 09:34 | Inpatient (IN) | payer OTHER, SELFPAY ==
[2020-11-07] VITALS (32 sets, daily range): BP systolic 94–195; BP diastolic 40–125; PULSE 87–124; RESP 20–40; TEMP 36.9–37.6; O2SAT 60–99; BMI 97.9
--- NOTE | ~2020-11-07 | XR_ITS ---
EXAMINATION: XR chest 1V portable DATE: 11/12/2020 05:57 INDICATION: Bilateral infiltrates. Pneumonia. TECHNIQUE: A single frontal view of the chest was obtained. COMPARISON: Chest single view 11/11/2020 FINDINGS: There are airspace opacities in all lung zones bilaterally with a perihilar predominance. N o pleural effusion or pneumothorax. Cardiomegaly is noted. The endotracheal tube tip is 1.5 cm above the edward. The nasogastric tube tip is beyond the inferior margin of the radiograph, but at least to the stomach. IMPRESSION: 1. Diffuse lung disease with improvement at left lung base, consistent with pulmonary edema versus pn eumonia. 2. Cardiomegaly. Reviewed, dictated and finalized at location A. IMPRESSION: 1. Diffuse lung disease with improvement at left lung base, consistent with pul monary edema versus pneumonia. 2. Cardiomegaly.
--- NOTE | ~2020-11-07 | XR_ITS ---
EXAMINATION: XR chest 1V portable EXAM DATE: 11/15/2020 05:57 INDICATION: Respiratory failure. TECHNIQUE: Portable AP frontal chest x-ray was obtained. Comparison is made to prior examination from 11/12, 11/14. FINDINGS: Endotracheal tube tip is 5 centimeters above the edward. There is a nasogastric tube seen with tip collimated off the study, but below the left hemidiaphragm. There is a right-sided PICC line with tip projecting over the SVC. Moderate amount of ill-defined edema or pneumonia. There are no sizable pleural effusions. There i s no pneumothorax suspected. Cardiac silhouette is enlarged but stable in size compared to prior ex am. There is pulmonary vascular congestion. The bones and soft tissues are unremarkable. There is no significant interval change compared to prior exam. IMPRESSION: 1. Line and tube(s) in position. 2. Moderate amount of pneumonia and/or edema. Reviewed, dictated and finalized at location A.
--- NOTE | ~2020-11-07 | XR_ITS ---
EXAMINATION: XR chest 1V portable DATE: 11/09/2020 05:43 INDICATION: Bilateral infiltrates. Pneumonia. TECHNIQUE: A single frontal view of the chest was obtained. COMPARISON: Chest single view 11/08/2020, CT abdomen and pelvis 12/06/2016 FINDINGS: Sensitivity and specificity are decreased by obesity. There are airspace opacities in all l ale zones bilaterally. No pleural effusion or pneumothorax. The heart size may be normal given techni que and obesity. The endotracheal tube tip is 2.5 cm above the edward. The nasogastric tube tip is in the stomach. A right upper extremity peripherally inserted central venous catheter (PICC) is seen wi th tip at the superior cavoatrial junction. IMPRESSION: 1. Diffuse lung disease with interval improvement, consistent with pulmonary edema versus pneumonia. Reviewed, dictated and finalized at location A. IMPRESSION: 1. Diffuse lung disease with interval improvement, consistent with pulmonary ed arabella versus pneumonia.
--- NOTE | ~2020-11-07 | XR_ITS ---
EXAMINATION: XR chest 1V portable DATE: 11/11/2020 05:42 INDICATION: Bilateral infiltrates. Pneumonia. TECHNIQUE: A single frontal view of the chest was obtained. COMPARISON: Chest single view 11/10/2020 FINDINGS: There are airspace opacities in all lung zones bilaterally with a perihilar and lower lung predominance. There is a small left pleural effusion. No pneumothorax. Cardiomegaly is noted. The end otracheal tube tip is 4.1 cm above the edward. The nasogastric tube tip is beyond the inferior margin of the radiograph, but at least to the stomach. IMPRESSION: 1. Stable diffuse lung disease, consistent with pulmonary edema versus pneumonia. 2. Stable small left pleural effusion. 3. Cardiomegaly. Reviewed, dictated and finalized at location A. IMPRESSION: 1. Stable diffuse lung disease, consistent with pulmonary edema versus pneumoni a. 2. Stable small left pleural effusion. 3. Cardiomegaly.
--- NOTE | ~2020-11-07 | US_ITS ---
EXAMINATION: US venous doppler UE RT EXAM DATE: 11/16/2020 13:32 INDICATION: Right arm swelling, hemorrhage, right PICC line being removed. TECHNIQUE: Multiple grayscale, color flow, Doppler sonographic images of the right upper extremity ve ins obtained by technologist. Compression was performed where able. There is no prior study for jg marquis. FINDINGS: Right upper extremity: Jugular vein: ------------> Normal. Subclavian vein: --------> Normal. Axillary vein:------------> Normal. Brachial vein:-----------> Normal. Basilic vein: ------------> Normal. Cephalic vein: ----------> Normal. Radial vein: ------------> Normal. Ulnar vein: > Normal. IMPRESSION: No deep venous thrombosis of the right upper extremity. Reviewed, dictated and finalized at location A.
--- NOTE | ~2020-11-07 | XR_ITS ---
XR chest PICC line DATE: 11/07/2020 16:45 INDICATION: PICC line placement TECHNIQUE: Portable AP supine view on 11/07/2020 at 1634 hours COMPARISON: 11/07/2020 portable AP chest at 0947 hours FINDINGS: This is a limited single portable apical lordotic view. Right upper stomach the catheter ti p overlies the superior vena cava. There are extensive diffuse bilateral pulmonary infiltrates No pleural effusion is evident. No pneumothorax is detected. IMPRESSION: Right upper extremity PIC catheter in superior vena cava Extensive diffuse bilateral pulmonary infiltrates Reviewed, dictated and finalized at Location A. Reviewed, dictated and finalized at location A.
--- NOTE | ~2020-11-07 | XR_ITS ---
EXAMINATION: XR chest ET placement INDICATION: Respiratory failure TECHNIQUE: Portable AP chest at 2152 hours COMPARISON: 1634 hours FINDINGS: An endotracheal tube has been inserted which ends 2.1 cm above the edward. A nasogastric tu be has been inserted which is followed as far as the stomach. Its tip is beyond the inferior margin o f the radiograph. A right upper extremity PICC ends with its tip in the distal superior vena cava. Th ere are diffuse opacities throughout all lung zones with interval worsening. The cardiomediastinal si lhouette is normal. No pleural effusion or pneumothorax is identified. IMPRESSION: 1. Endotracheal and nasogastric tubes inserted in adequate position. 2. Diffuse lung disease with interval worsening, consistent with pneumonia and/or pulmonary edema and /or acute respiratory distress syndrome (ARDS). Reviewed, dictated and finalized at location A. IMPRESSION: 1. Endotracheal and nasogastric tubes inserted in adequate position. 2. Diffuse lung disease with interval worsening, consistent with pneumonia and/ or pulmonary edema and/or acute respiratory distress syndrome (ARDS).
--- NOTE | ~2020-11-07 | XR_ITS ---
EXAMINATION: XR chest 1V portable DATE: 11/10/2020 05:39 INDICATION: Bilateral infiltrates. Pneumonia. TECHNIQUE: A single frontal view of the chest was obtained. COMPARISON: Chest single view 11/09/2020 FINDINGS: The patient is rotated to her left. Sensitivity is decreased by obesity. There are airspace opacities in all lung zones bilaterally. There may be a small left pleural effusion. No pneumothorax . Cardiomegaly is noted. The endotracheal tube tip is 2.4 cm above the edward. The nasogastric tube t ip is beyond the inferior margin of the radiograph, but at least to the stomach. A right upper extrem ity peripherally inserted central venous catheter (PICC) is seen with tip in the superior vena cava. IMPRESSION: 1. Stable diffuse lung disease, consistent with pulmonary edema versus pneumonia. 2. Small left pleural effusion. 3. Cardiomegaly. Reviewed, dictated and finalized at location A. IMPRESSION: 1. Stable diffuse lung disease, consistent with pulmonary edema versus pneumoni a. 2. Small left pleural effusion. 3. Cardiomegaly.
--- NOTE | ~2020-11-07 | XR_ITS ---
EXAMINATION: XR chest 1V portable EXAM DATE: 11/14/2020 05:30 INDICATION: Respiratory failure. TECHNIQUE: Portable AP frontal chest x-ray was obtained. Comparison is made to prior examination from 11/12/2020. FINDINGS: Endotracheal tube tip is 3.7 centimeters above the edward. There is a nasogastric tube see n with tip collimated off the study, but below the left hemidiaphragm. There is a right-sided PICC li ne with tip projecting over the cavoatrial junction. Moderate amount of ill-defined edema or pneumonia. There are no sizable pleural effusions. There i s no pneumothorax suspected. The cardiac silhouette is enlarged. The bones and soft tissues are u nremarkable. There is no significant interval change compared to prior exam. IMPRESSION: 1. Line and tube(s) in position. 2. Moderate amount of pneumonia and/or edema. Reviewed, dictated and finalized at location A.
--- NOTE | ~2020-11-07 | US_ITS ---
EXAMINATION: US venous doppler [facility] DATE: 11/08/2020 08:06 INDICATION: Bilateral lower limb edema TECHNIQUE: Dewey scale images without and with compression and Doppler images of the bilateral lower e xtremity veins were obtained. COMPARISON: None FINDINGS: The examination is limited by the patient's body habitus. The right common femoral vein, profunda femoral vein, femoral vein, popliteal vein, posterior tibial veins, and greater saphenous vein are patent. The peroneal veins are not visualized. The left common femoral vein, profunda femoral vein, femoral vein, popliteal vein, posterior tibial v eins, and greater saphenous vein are patent. The peroneal veins are not visualized. IMPRESSION: 1. Bilateral peroneal veins not visualized. Patent bilateral lower extremity veins. No evidence of de ep venous thrombosis in the visualized veins. Reviewed, dictated and finalized at location A. IMPRESSION: 1. Bilateral peroneal veins not visualized. Patent bilateral lower extremity ve ins. No evidence of deep venous thrombosis in the visualized veins.
--- NOTE | ~2020-11-07 | XR_ITS ---
EXAMINATION: XR chest 1V portable INDICATION: Respiratory failure TECHNIQUE: Portable AP chest at 0508 hours COMPARISON: 11/07/2020 FINDINGS: The endotracheal tube ends approximately 3.6 cm above the edward. The nasogastric tube is f ollowed as far as the stomach. Its tip is beyond the inferior margin of the radiograph. A right upper extremity PICC ends with its tip in the distal superior vena cava. Diffuse opacities persist through out all lung zones without significant change. The heart size is upper limits of normal technique. Th ere is no pleural effusion or pneumothorax. IMPRESSION: 1. Stable diffuse lung disease, consistent with pneumonia and/or pulmonary edema and/or acute respira tory distress syndrome (ARDS). Reviewed, dictated and finalized at location A. IMPRESSION: 1. Stable diffuse lung disease, consistent with pneumonia and/or pulmonary gina a and/or acute respiratory distress syndrome (ARDS).
--- NOTE | ~2020-11-07 | XR_ITS ---
EXAMINATION: XR chest 1V portable DATE: 11/16/2020 05:53 INDICATION: Respiratory failure TECHNIQUE: frontal view of the chest was obtained. COMPARISON: Chest radiograph dated 11/15/2020 FINDINGS: Right upper extremity peripherally inserted central venous catheter (PICC) tip at the mid superior v yumiko cava. Improvement in now minimal perihilar opacities with some bronchial wall thickening. Pleural effusion or pneumothorax. The cardiomediastinal silhouette is normal. Visualized bones and soft tissues are un remarkable. IMPRESSION: 1. Significant improvement in now minimal residual perihilar opacities which could represent pulmonar y edema or pneumonia.. Reviewed, dictated and finalized at location A. IMPRESSION: 1. Significant improvement in now minimal residual perihilar opacities which co uld represent pulmonary edema or pneumonia..
--- NOTE | ~2020-11-07 | XR_ITS ---
EXAMINATION: XR chest 1V portable INDICATION: Cough and shortness of breath TECHNIQUE: Portable AP chest at 0947 hours COMPARISON: 11/03/2020 FINDINGS: There are patchy opacities throughout all lung zones. The heart size is normal. There is no pleural effusion or pneumothorax. The visualized osseous structures are unremarkable. IMPRESSION: 1. Diffuse lung disease, consistent with pneumonia and/or pulmonary edema. Reviewed, dictated and finalized at location A.
--- NOTE | ~2020-11-07 | XR_ITS ---
EXAMINATION: XR abdomen NG/feed tube insert INDICATION: Nasogastric tube insertion TECHNIQUE: Portable AP KUB-NG at 2155 hours COMPARISON: 04/10/2019 FINDINGS: The nasogastric tube is in the stomach. The bowel gas pattern is nonspecific. There are air space opacities of the visualized lung bases. IMPRESSION: 1. Nasogastric tube in the stomach. Reviewed, dictated and finalized at location A.
--- NOTE | ~2020-11-07 | US_ITS ---
EXAMINATION: US renal BI DATE: 11/09/2020 14:46 INDICATION: Acute kidney injury. TECHNIQUE: Multiple ultrasound grayscale images of the kidneys were obtained. COMPARISON: CT abdomen and pelvis 12/06/16 FINDINGS: The right kidney measures 11.3 x 4.9 x 5.4 cm. The left kidney measures 11.2 x 4.8 x 6.5 cm. The kidn eys demonstrate normal parenchymal echogenicity. There is no hydronephrosis. The bladder is not well visualized. IMPRESSION: 1. Normal kidneys. No hydronephrosis. Reviewed, dictated and finalized at location A.
--- NOTE | 2020-11-07 09:38 | ECG_ITS ---
Measurements Intervals [place] Rate: 106 P: 51 MN: 170 QRS: 50 QRSD: 102 T: 38 QT: 361 QTc: 479 Interpretive Statements SINUS TACHYCARDIA BORDERLINE R WAVE PROGRESSION, ANTERIOR LEADS MINIMAL Q WAVES- INFERIOR LEADS ABNORMAL ECG Electronically Signed On 11-07-2020 14:18:57 CDT by Goldy Iqbal D.O.
--- NOTE | 2020-11-07 09:47 | ED.SOB ---
HPI - SOB/Dyspnea General Chief Complaint: Shortness of Breath/Dyspnea Stated Complaint: chest pain, diff breathing Time Seen by Provider: 11/07/20 09:38 Source: RN notes reviewed History of Present Illness HPI Narrative: Patient presents to emergency department from home for shortness of breath and chest pain. Patient states she has been having progressive shortness of breath for the past 1 week states has been associated with a cough this been productive of clear sputum states that last night she developed pain in the midsternal chest described as a pressure she denies any fevers or chills abdominal pain nausea vomiting or any other symptoms states she has had both of her Covid vaccinations with her second dose in September Related Data Home Medications Medication Instructions Recorded Confirmed metformin 500 mg PO BID 08/03/20 10/05/20 fluoxetine mg 11/07/20 levothyroxine 11/07/20 lisinopril 11/07/20 Allergies Allergy/AdvReac Type Severity Reaction Status Date / Time amoxicillin Allergy Unknown RASH, Verified 11/07/20 09:56 DIFFICULTY BREATHING Review of Systems Review of Systems: Gen.: Denies fevers or chills ENT: Denies congestion Respiratory: Reports shortness of breath CV: Reports midsternal chest pain GI: Denies abdominal pain nausea, emesis or diarrhea Musculoskeletal: Denies back pain or muscle pain Neuro: Denies numbness, tingling, weakness or focal weakness Skin: Denies rash Except as documented, all other systems reviewed and negative [facility] Past Medical History Medical History (Updated 11/07/20 @ 12:48 by Rah Norman DO) Asthma Depression Diabetes mellitus GERD (gastroesophageal reflux disease) H/O: HTN (hypertension) Hypothyroid Influenza Obesity Sleep apnea Surgical History Surgical History No history of previous surgery Family History Family History Mother Diabetes mellitus Social History Social History Smoking packs per day: 1 Smoking cigarettes per day: 20.0 Smoking status: Current every day smoker Tobacco type: cigarettes Alcohol intake: current Drinks per week: 5 Alcohol use details: Drinks only occasionally Substance use: never Gender identity (if verbalized by the patient): Female Spiritual care concerns: No Agree to blood products: Yes Exam Narrative: APPEARANCE: Moderate respiratory distress sitting upright in bed HEENT: Normocephalic, atraumatic OMM RESPIRATORY: Moderate respiratory distress sitting upright in bed speaking in short phrases yes breath sounds throughout the bilateral lung rolon CARDIOVASCULAR: Tachycardic and regular without murmurs rubs or gallops. ABDOMINAL: Obese soft, nontender, nondistended, no rebound or guarding MUSCULOSKELETAl: Moves all extremities. No clubbing, cyanosis 3+ edema in bilateral lower extremities NEURO: Awake and alert. Following commands, speech normal, no focal deficits SKIN:: Warm, dry. Normal Color PSYCHIATRIC: Normal affect/mood, Course Course Emergency Course: Patient initially 60% on room air she was placed on 6 L nasal cannula with improvement of her O2 sats into the mid 90s however the patient continued to had respiratory distress and a BiPAP was placed with good improvement Reviewed old records Patient unable to lay flat for CTA chest : Discussed Dr. Conner presentation work-up agrees with admission to the ICU at this time. Agrees with plan for antibiotics agrees with plan to refrain from anticoagulation at this time Discussed with Dr. Frank presentation work-up agrees with admission at this time Discussed with patient and family results of workup and diagnosis. Discussed need for admission. Patient and family understand and agree to current treatment plan Vital Signs Vital signs: Vital Signs
[2020-11-07] MEDS: ALBUTEROL SULFATE NEB 2.5 MG/0.5 ML INH 5 MG INHALATION (09:54)
[2020-11-07] MEDS: IPRATROPIUM BR 0.02% INH SOLN 0.5 MG/2.5 ML VIAL INHALATION ×2 (09:54→20:15)
[2020-11-07 10:10] LABS: Alveolar/Arterial O2 Gradient 219.8 mmHg; Base Excess ABG -4.9 mEq/l (+/-2.0); Fractional Inspired Oxygen 44 %; Oxygen Content ABG 16.7 %vol (16.0-22.0); Oxygen Saturation ABG 94.4 % (95.0-100.0); Oxyhemoglobin 93.1 % THb (90.0-100.0); PCO2 ABG 36.5 mmHg (35.0-45.0); PO2 ABG 74.1 mmHg (80.0-100.0); PO2 FiO2 Ratio Arterial Blood 1.68 %; Total Hemoglobin 12.7 g/dL (12.0-18.0); pH ABG 7.356 (7.350-7.450)
[2020-11-07 10:11] LABS: Device NASAL CANNULA; Modified Allen's Test Pass; Site Drawn LEFT RADIAL
[2020-11-07] MEDS: methylPREDNISolone SOD SUCC 125 MG VIAL IV PUSH (10:28)
[2020-11-07 10:40] LABS: Basophils Absolute Auto 0.1 K/mm3 (0.0-0.1); Basophils Percent Auto 0.4 % (0.2-1.2); Eosinophils Absolute Auto 0.2 K/mm3 (0-0.3); Hematocrit 37.8 % (37.0-47.0); Hemoglobin 12.1 g/dL (12.0-15.0); Immature Granulocyte Absolute 0.14 K/mm3 (0.00-0.031); Immature Granulocyte Percent A 1.2 % (0-0.5); Lymphocytes Absolute Auto 1.21 K/mm3 (0.9-3.2); Lymphocytes Percent Auto 10.4 % (18.3-44.2); Mean Corpuscular Hemoglobin 27.6 pg (26-34); Mean Corpuscular Volume 86.3 fl (80-100); Mean Platelet Volume 11.3 fl (7.4-10.4); Monocytes Absolute Auto 0.4 K/mm3 (0.1-0.6); Neutrophils Absolute Auto 9.7 K/mm3 (1.3-6.7); Platelet Count Result 265 k/mm3 (150-375); Red Blood Count 4.38 M/mm3 (4.2-5.4); Red Cell Distribution Width 14.2 % (11.5-14.5); White Blood Count 11.7 K/mm3 (4.5-10.0)
[2020-11-07 10:48] LABS: Lactic Acid Reflex 1.3 mmol/L (0.7-2.1)
[2020-11-07 10:50] LABS: Alanine Aminotransferase 31 U/L (4-35); Alkaline Phosphatase 89 U/L (38-126); Anion Gap 12 mmol/L (8-16); Aspartate Amino Transferase 29 U/L (14-36); Bilirubin,Total 0.8 mg/dL (0.2-1.3); Blood Urea Nitrogen 10 mg/dL (7-17); Calcium 8.6 mg/dL (8.4-10.2); Carbon Dioxide 21 mmol/L (22-30); Chloride 106 mmol/L (98-107); Estimated Glomerular Filt Rate > 60; Glucose 220 mg/dL (65-110); Potassium 3.7 mmol/L (3.4-5.0); Sodium 139 mmol/L (137-145)
[2020-11-07 10:51] LABS: Prothrombin Time 12.9 Seconds (11.1-14.7)
[2020-11-07 10:52] LABS: Partial Thromboplastin Time 27.8 SECONDS (22.3-36.8)
[2020-11-07 11:01] LABS: NT Pro B Type Natriuretic Pept 556 pg/mL (5-100); Troponin I < 0.012 ng/mL (0.000-0.034)
[2020-11-07 12:46] LABS: D Dimer 1.29 ug/mL (<0.48)
--- NOTE | 2020-11-07 14:00 | PM.IMHP ---
H&P: HPI History of Present Illness Date/Time: 11/07/20 14:00 Chief Complaint: Shortness of breath. Narrative: This is a 30-year-old female with history of tobacco abuse now vaping, morbid obesity, untreated sleep apnea, asthma, diabetes, hypertension, hypothyroidism, and history of post influenza pneumonia requiring intubation and transfer to [facility] for ECMO in March 2019 who presented to the emergency department earlier today from home for evaluation of shortness of breath. She endorses increasing shortness of breath over the past couple of weeks with orthopnea over the last several days. Typically she is sleeps on her stomach however she has been sleeping on her back in elevated position the last couple of days due to shortness of breath. In fact last night she heard ?crackling? in her lungs and she did not sleep well due to shortness of breath and tightness throughout her chest. Additionally she reports a cough that is rarely productive of white/pink tinged sputum. On arrival to the emergency department her SpO2 was 60% on room air and she was started on 6 L nasal cannula with improvement her sats. Chest x-ray showed diffuse lung disease consistent with pneumonia and/or pulmonary edema though with further questioning she denies cold and flu symptoms, specifically denying fever, chills, sweats, sinus congestion, rhinorrhea, otalgia, and odynophagia. She denies sick contacts and exposure to those positive for COVID 19. She did receive the Moderna COVID vaccination and she had her 2nd shot about a month ago. Approximately 2 hours after I saw the patient I received a call that she was very anxious with respirations in the 40s and at times up into the 60s. She was started on a Precedex drip which seemed to help initially however she once again became quite tachypneic and difficult to arouse. After discussions with Dr. Conner it was decided that the patient was impending respiratory failure and intubation would be appropriate at this time. Given the patient's body habitus and her history of being a difficult intubation, I spoke with anesthesiologist Dr. Sibley and he graciously agreed to perform the intubation. Please see his separate procedure note. Sedation and vent settings were given per Dr. Conner. Review of Systems Review of Systems: Twelve systems were reviewed with pertinent positives and negatives as per HPI. No headache or neck ache. She denies fever, chills, and sweats. No anosmia or dysgeusia. No vomiting or diarrhea. No pleuritic chest pain. She has not noticed any significant lower extremity edema. No history of venous thromboembolism. Except as documented, all other systems were reviewed and are negative. [facility] Past Medical History Medical History Anxiety Asthma Depression Gastroesophageal reflux disease Hypertension Hypothyroidism Influenza (03/2019) Complicated by post influenza pneumonia requiring intubation and transfer to tertiary care facility for ECMO. Obstructive sleep apnea Intolerant to CPAP. Type 2 diabetes mellitus Vapes nicotine containing substance Surgical History Surgical History No history of previous surgery Family History Family History Mother Diabetes mellitus Social History Social History (Updated 11/07/20 @ 23:21 by Dionne Rico PA-C) Social History: Surrogate decision maker: Cindy Delgado, mother. Code status: Full code. Smoking packs per day: 1 Smoking cigarettes per day: 20.0 Smoking status: Current every day smoker Tobacco type: cigarettes and e-cigarettes/vaping Additional smoking assessment comments: 1 pack of cigarettes a day for over 10 years, now vapes. Alcohol intake: current Alcohol use details: Occasional alcohol use in moderation. Substance use: never Additional living arrangements comments: The patient lives in [facility]
--- NOTE | 2020-11-07 14:01 | PC.NURSE ---
ed resp unable to assist with transport to icu. will come to ed as soon as avail. 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
--- NOTE | 2020-11-07 14:33 | WPDCNINT ---
Assessment and Plan Assessment and plan (1) Acute respiratory failure with hypoxemia: Code(s): J96.01 - Acute respiratory failure with hypoxia Status: Acute Assessment and Plan: Acute hypoxic respiratory failure, could be related to COVID pneumonia, community-acquired pneumonia, vaping -influenza a and B were negative -SARS-CoV-2 PCR has been ordered and pending -currently on BiPAP 14/8, 40% FiO2. O2 sats have been adequate, will continue to monitor (2) Chest pain: Code(s): R07.9 - Chest pain, unspecified Status: Acute Assessment and Plan: Patient complains of substernal chest pain without any radiation. 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 hydralazine for now (5) Hypothyroid: Qualifiers: Hypothyroidism type: acquired Qualified Code(s): E03.9 - Hypothyroidism, unspecified Code(s): E03.9 - Hypothyroidism, unspecified Status: Acute Assessment and Plan: Will continue levothyroxine, switched to IV (6) Suspected COVID-19 virus infection: Code(s): Z20.822 - Contact with and (suspected) exposure to COVID-19 Status: Acute Assessment and Plan: Patient with upper acute hypoxic respiratory failure, denies any contacts or exposure with COVID patient -patient did receive a 2nd dose of Moderna COVID vaccine in September 2020 -SARS-CoV-2 PCR has been obtained and pending -continue droplet, airborne, contact isolation/precautions -LDH, CRP been obtained -D-dimer is elevated (7) DVT prophylaxis: Code(s): Z29.9 - Encounter for prophylactic measures, unspecified Status: Acute Assessment and Plan: Given the body habitus will start enoxaparin 40 mg SQ Q12H (8) Vaping-related disorder: Code(s): U07.0 - Vaping-related disorder Status: Acute Assessment and Plan: Have counseled patient on cessation of vaping Additional Plan Discussed with patient updated with her condition and plan of care. I did discuss with her that she is getting antibiotic will diurese her. If her condition worsens she might need intubation to which she is agreeable. Code status: Full code Critical care time spent: 44 minutes This dictation may have been done utilizing a voice recognition system. Attempts have been made to correct errors. However, there may be uncorrected grammatical, spelling, and recognition errors present. Due to a high probability of clinically significant, life threatening deterioration, the patient required my highest level of preparedness to intervene emergently and I personally spent this critical care time directly and personally managing the patient. This critical care time included obtaining a history; examining the patient; pulse oximetry; ordering and review of studies; arranging urgent treatment with development of a management plan; evaluation of patient's response to treatment; frequent reassessment; and discussions with other providers. It was exclusive of separately billable procedures and t
--- NOTE | 2020-11-07 14:52 | PC.NURSE ---
This patient, Claudia Delgado, was admitted to Intensive Care Unit-6. Patient/family oriented to hospital policies and general routines including ID bracelet, bed and alarms, visiting hours, pain management, procedures, bathroom and other care routines, personal items, smoking policy, room service/diet, and visiting hours. Information on how to activate the Rapid Response Team has been discussed. Patient/Family are encouraged to report perceived risks to care and to ask questions if they do not understand what they are told or what they should do.
[2020-11-07 15:06] LABS: CRP 7.6 mg/dL (<1.0); Lactate Dehydrogenase 941 U/L (313-618)
[2020-11-07 15:15] LABS: Troponin I < 0.012 ng/mL (0.000-0.034)
[2020-11-07] MEDS: hydrALAZINE HCL 20 MG/ML VIAL 10 MG IV PUSH ×2 (16:58→18:54)
[2020-11-07] MEDS: FUROSEMIDE INJ 40 MG/4 ML VIAL IV PUSH (16:58)
[2020-11-07] MEDS: ENOXAPARIN 40 MG/0.4 ML SYRINGE SUB-Q (16:59)
[2020-11-07 17:23] LABS: Hemoglobin A1C 9.3 % (<5.7)
[2020-11-07 17:48] LABS: Troponin I < 0.012 ng/mL (0.000-0.034)
[2020-11-07 18:27] LABS: Glucose Point of Care 323 mg/dl (65-105)
[2020-11-07] MEDS: dexmedeTOMIDine 400 MCG/100 ML 400 MCG/100 ML BAG 11 MCG IV CONT (18:54)
[2020-11-07] MEDS: INSULIN ASPART (*BKC) 100 UNITS/ML SUB-Q (18:55)
[2020-11-07 19:38] LABS: Troponin I < 0.012 ng/mL (0.000-0.034)
[2020-11-07] MEDS: ALBUTEROL SULFATE NEB 2.5 MG/0.5 ML INH INHALATION (20:15)
[2020-11-07 21:10] LABS: Base Excess ABG -2.8 mEq/l (+/-2.0); Carboxyhemoglobin 0.4 % THb (0-2.0); Device BIPAP; Fractional Inspired Oxygen 70 %; HCO3 ABG 23.6 mEq/l (22.0-26.0); Methemoglobin ABG 0.4 %THb (0-1.5); Modified Allen's Test Pass; Oxygen Content ABG 18.3 %vol (16.0-22.0); Oxygen Saturation ABG 95.3 % (95.0-100.0); Oxyhemoglobin 94.1 % THb (90.0-100.0); PCO2 ABG 46.8 mmHg (35.0-45.0); PO2 ABG 82.8 mmHg (80.0-100.0); PO2 FiO2 Ratio Arterial Blood 1.18 %; Reduced Hemoglobin 5.1 %THb (0-5.0); Site Drawn LEFT RADIAL; Total Hemoglobin 13.8 g/dL (12.0-18.0)
[2020-11-07 21:11] LABS: Expiratory Pressure 8 cmH2O; Inspiratory Pressure 14 cmH2O
[2020-11-07] MEDS: RAPID SEQUENCE INTUBATION KIT 1 EACH (21:27)
[2020-11-07] MEDS: FENTANYL 2,500MCG/NS250ML(*CRX 2,500 MCG/250 ML BAG 12.5 MCG IV CONT (21:30)
[2020-11-07] MEDS: PROPOFOL IV EMULSION 200 MG/20 ML VIAL 100 MG IV PUSH ×3 (21:30→21:45)
[2020-11-07] MEDS: MIDAZOLAM 100MG/NS 100ML(*CRX) 100 MG/100 ML BAG 6 MG IV CONT (21:30)
[2020-11-07] MEDS: PROPOFOL IV EMULSION 100 ML 33 MG IV CONT (21:50)
--- NOTE | 2020-11-07 21:55 | WPDPROCEDUR ---
Procedures Intubation Intubation Date: 11/07/20 Intubation Time: 21:30 A pre-procedural Time-Out was completed immediately before starting the procedure and confirmed: Patient Identification, Site, Procedure, Patient Position and the Availability of Requisite Equipment: Yes Sedative: other (Propofol) Mg given: 300 Paralytic: succinylcholine Mg given: 150 Laryngoscope: other (Glidescope 4) ET tube size: 7 Tube secured depth (cm): 24 Tube secured location: lips Tube placement confirmation: visualized tube passing through cords, equal breath sounds bilaterally, no breath sounds over epigastrium and confirmation by capnometry Patient tolerated procedure: well and no complications Intubation complications: none
[2020-11-07] MEDS: CENTRAL LINE FLUSH 10 ML IV PUSH (21:59)
[2020-11-07] MEDS: NOREPINEPHRINE 8 MG/D5W 250 ML 8 MG/250 ML BAG 9.38 MG IV CONT (22:48)
[2020-11-07] MEDS: CISATRACURIUM BESYLATE 20 MG/10 ML VIAL 30 MG IV PUSH (22:49)
[2020-11-07] MEDS: CISATRACURIUM BESYLATE 200 MG in DEXTROSE 5% 80 ML 19.8 ML IV CONT (22:51)
[2020-11-07] MEDS: PROPOFOL IV EMULSION 100 ML 66 MG IV CONT (23:20)
[2020-11-07 23:44] LABS: EDCOVIDSCREEN Negative (Negative)
[2020-11-08] VITALS (54 sets, daily range): BP systolic 80–139; BP diastolic 32–84; PULSE 98–130; RESP 22–35; TEMP 36.2–37.1; O2SAT 87–99
[2020-11-08] MEDS: INSULIN ASPART (*BKC) 100 UNITS/ML SUB-Q (00:38)
[2020-11-08] MEDS: PROPOFOL IV EMULSION 100 ML 46.2 MG IV CONT ×2 (00:44→02:54)
[2020-11-08 00:57] LABS: Glucose Point of Care 382 mg/dl (65-105)
[2020-11-08] MEDS: IPRATROPIUM BR 0.02% INH SOLN 0.5 MG/2.5 ML VIAL INHALATION ×4 (02:28→21:10)
[2020-11-08] MEDS: ALBUTEROL SULFATE NEB 2.5 MG/0.5 ML INH INHALATION ×4 (02:28→21:10)
--- NOTE | 2020-11-08 04:19 | PCDIET ---
Propofol placed on standby r/t hypotension.
[2020-11-08] MEDS: VASOPRESSIN INJ 100 UNITS in DEXTROSE 5% 95 ML IV CONT (04:46)
[2020-11-08] MEDS: CISATRACURIUM BESYLATE 200 MG in DEXTROSE 5% 80 ML 6.6 ML IV CONT (05:11)
[2020-11-08 05:46] LABS: Basophils Absolute Auto 0.2 K/mm3 (0.0-0.1); Basophils Percent Auto 0.7 % (0.2-1.2); Hemoglobin 13.1 g/dL (12.0-15.0); Immature Granulocyte Absolute 1.26 K/mm3 (0.00-0.031); Lymphocytes Absolute Auto 1.51 K/mm3 (0.9-3.2); Lymphocytes Percent Auto 4.8 % (18.3-44.2); Mean Corpuscular HGB Conc 29.8 g/dl (32-36); Mean Corpuscular Hemoglobin 27.6 pg (26-34); Mean Corpuscular Volume 92.8 fl (80-100); Mean Platelet Volume 11.3 fl (7.4-10.4); Monocytes Absolute Auto 2.1 K/mm3 (0.1-0.6); Monocytes Percent Auto 6.6 % (2.6-8.5); Neutrophils Absolute Auto 26.4 K/mm3 (1.3-6.7); Neutrophils Percent Auto 83.9 % (45.5-73.1); Nucleated Red Blood Cells Absolute Auto 0.2 K/mm3 (0.0-0.012); Nucleated Red Blood Cells Perc 0.6 % (0.0-0.2); Platelet Count Result 598 k/mm3 (150-375); Red Blood Count 4.74 M/mm3 (4.2-5.4); Red Cell Distribution Width 13.9 % (11.5-14.5); White Blood Count 31.5 K/mm3 (4.5-10.0)
[2020-11-08 05:51] LABS: Hemoglobin A1C 9.6 % (<5.7); Lactic Acid Reflex 1.6 mmol/L (0.7-2.1)
[2020-11-08 05:51] LABS: Base Excess ABG -9.1 mEq/l (+/-2.0); Carboxyhemoglobin 0.6 % THb (0-2.0); Fractional Inspired Oxygen 100 %; HCO3 ABG 25.8 mEq/l (22.0-26.0); Methemoglobin ABG 0.6 %THb (0-1.5); Oxygen Content ABG 19.5 %vol (16.0-22.0); Oxygen Saturation ABG 96.7 % (95.0-100.0); Oxyhemoglobin 96.5 % THb (90.0-100.0); PO2 ABG 139.8 mmHg (80.0-100.0); Reduced Hemoglobin 2.3 %THb (0-5.0); Total Hemoglobin 14.2 g/dL (12.0-18.0)
[2020-11-08 05:55] LABS: PCO2 ABG 117.2 mmHg (35.0-45.0)
[2020-11-08 05:56] LABS: Arterial Blood Gas PEEP 16 cmH2O; Arterial Blood Gas Tidal Volume 300 ml; Arterial Blood Gas Vent Mode CMV; Arterial Blood Gas Ventilator rate 26 /MIN; Device VENTILATOR; Modified Allen's Test Pass; Site Drawn RIGHT RADIAL
[2020-11-08 06:04] LABS: Alanine Aminotransferase 34 U/L (4-35); Albumin Level 4.4 g/dL (3.5-5.1); Alkaline Phosphatase 109 U/L (38-126); Anion Gap 14 mmol/L (8-16); Aspartate Amino Transferase 34 U/L (14-36); Bilirubin,Total 0.7 mg/dL (0.2-1.3); Blood Urea Nitrogen 13 mg/dL (7-17); CRP 24.3 mg/dL (<1.0); Calcium 7.8 mg/dL (8.4-10.2); Carbon Dioxide 23 mmol/L (22-30); Chloride 98 mmol/L (98-107); Estimated Glomerular Filt Rate 49; Glucose 460 mg/dL (65-110); Potassium 6.5 mmol/L (3.4-5.0); Sodium 135 mmol/L (137-145)
[2020-11-08] MEDS: ENOXAPARIN 40 MG/0.4 ML SYRINGE SUB-Q ×2 (06:07→17:50)
[2020-11-08] MEDS: CENTRAL LINE FLUSH 10 ML IV PUSH ×3 (06:07→21:23)
[2020-11-08] MEDS: LEVOTHYROXINE SODIUM 75 MCG TABLET PO (06:08)
[2020-11-08] MEDS: NOREPINEPHRINE 8 MG/D5W 250 ML 8 MG/250 ML BAG 56.25 MG IV CONT (06:13)
[2020-11-08 06:20] LABS: Glucose Point of Care 416 mg/dl (65-105)
[2020-11-08] MEDS: INSULIN ASPART (*BKC) 100 UNITS/ML 15 UNITS SUB-Q (07:03)
[2020-11-08 07:04] LABS: Basophils Absolute Auto 0.2 K/mm3 (0.0-0.1); Basophils Percent Auto 0.6 % (0.2-1.2); Hematocrit 44.9 % (37.0-47.0); Hemoglobin 13.3 g/dL (12.0-15.0); Immature Granulocyte Percent A 4.5 % (0-0.5); Lymphocytes Absolute Auto 1.46 K/mm3 (0.9-3.2); Lymphocytes Percent Auto 4.6 % (18.3-44.2); Mean Corpuscular HGB Conc 29.6 g/dl (32-36); Mean Corpuscular Hemoglobin 27.9 pg (26-34); Mean Corpuscular Volume 94.1 fl (80-100); Mean Platelet Volume 11.3 fl (7.4-10.4); Monocytes Absolute Auto 1.9 K/mm3 (0.1-0.6); Neutrophils Absolute Auto 26.5 K/mm3 (1.3-6.7); Neutrophils Percent Auto 84.3 % (45.5-73.1); Nucleated Red Blood Cells Absolute Auto 0.2 K/mm3 (0.0-0.012); Nucleated Red Blood Cells Perc 0.8 % (0.0-0.2); Platelet Count Result 570 k/mm3 (150-375); Red Blood Count 4.77 M/mm3 (4.2-5.4); Red Cell Distribution Width 14.1 % (11.5-14.5); White Blood Count 31.4 K/mm3 (4.5-10.0)
[2020-11-08 07:17] LABS: Lactic Acid Reflex 1.5 mmol/L (0.7-2.1)
[2020-11-08 07:26] LABS: Hypochromasia 1+ (NORMAL); Platelet Estimate Increased (Adequate)
[2020-11-08 07:31] LABS: Alanine Aminotransferase 34 U/L (4-35); Albumin Level 4.4 g/dL (3.5-5.1); Alkaline Phosphatase 114 U/L (38-126); Anion Gap 12 mmol/L (8-16); Aspartate Amino Transferase 34 U/L (14-36); Bilirubin,Total 0.8 mg/dL (0.2-1.3); Blood Urea Nitrogen 14 mg/dL (7-17); CRP 24.9 mg/dL (<1.0); Calcium 7.8 mg/dL (8.4-10.2); Carbon Dioxide 24 mmol/L (22-30); Chloride 97 mmol/L (98-107); Estimated Glomerular Filt Rate 49; Glucose 467 mg/dL (65-110); Magnesium 1.9 mg/dL (1.6-2.3); Potassium 6.8 mmol/L (3.4-5.0); Sodium 133 mmol/L (137-145)
--- NOTE | 2020-11-08 08:30 | WPDINTPN ---
Progress Note: A&P Assessment and Plan (1) Acute respiratory failure with hypoxemia: Code(s): J96.01 - Acute respiratory failure with hypoxia Status: Acute Assessment and Plan: Acute hypoxic respiratory failure, could be related to COVID pneumonia, community-acquired pneumonia, vaping (EVALI) -influenza a and B were negative -SARS-CoV-2 PCR has been ordered and pending -rapid COVID test was negative -patient failed BiPAP due to tachypnea. Patient was intubated on 11/07/2020 at night -chest x-ray and ABGs reviewed. Severe respiratory acidosis, ventilator adjusted -continue bronchodilators -add pulmicort (2) Chest pain: Code(s): R07.9 - Chest pain, unspecified Status: Acute Assessment and Plan: Patient complains of substernal chest pain without any radiation. EKG shows sinus tachycardia with no ST-T changes -troponins negative x4, -04/15/2019 echocardiogram showed LV systolic function to be normal, EF 65-70% focal into examine because of obesity, no significant valvular lesion seen on Doppler -will repeat echocardiogram (3) Diabetes mellitus: Qualifiers: Diabetes mellitus type: type 2 Diabetes mellitus nursing home insulin use: without terminal superintendent use Diabetes mellitus complication status: with hyperglycemia Qualified Code(s): E11.65 - Type 2 diabetes mellitus with hyperglycemia Code(s): E11.9 - Type 2 diabetes mellitus without complications Status: Acute Assessment and Plan: Patient with history of diabetes and hyperglycemia -hemoglobin A1c this admission is 9.6 -Accu-Cheks and high-dose sliding scale insulin -start Levemir (4) Hypertension, essential: Code(s): I10 - Essential (primary) hypertension Status: Acute Assessment and Plan: Currently on Levophed and vasopressin, hold all antihypertensives (5) Hypothyroid: Qualifiers: Hypothyroidism type: acquired Qualified Code(s): E03.9 - Hypothyroidism, unspecified Code(s): E03.9 - Hypothyroidism, unspecified Status: Acute Assessment and Plan: Will continue levothyroxine, switched to IV (6) Suspected COVID-19 virus infection: Code(s): Z20.822 - Contact with and (suspected) exposure to COVID-19 Status: Acute Assessment and Plan: Patient with upper acute hypoxic respiratory failure, denies any contacts or exposure with COVID patient -patient did receive a 2nd dose of Moderna COVID vaccine in September 2020 -SARS-CoV-2 PCR has been obtained and pending -11/07: rapid COVID antigen was negative -continue droplet, airborne, contact isolation/precautions -D-dimer LDH and CRP are all elevated (7) DVT prophylaxis: Code(s): Z29.9 - Encounter for prophylactic measures, unspecified Status: Acute Assessment and Plan: Given the body habitus will start enoxaparin 40 mg SQ Q12H (8) Vaping-related disorder: Code(s): U07.0 - Vaping-related disorder Status: Acute Assessment and Plan: Patient with history of e- cigarettes/vaping -patient giving history of 2 weeks of worsening onset of shortness of breath, this could be related to EVALI (e-cigarette or vaping associated lung injury) -will start Solu-Medrol -consulted and discussed with pulmonology Dr. Fox who is agreeable with the treatment plan Additional Plan I called [facility] for transfer, they are not accepting any patients to be placed on the list and requested be call back this afternoon Code status: Full code Critical care time spent: 38 minutes This dictation may have been done utilizing a voice recognition system. Attempts have been made to correct errors. However, there may be uncorrected grammatical, spelling, and recognition errors present. Due to a high probability of clinically significant, life threatening deterioration, the patient required my highest level of preparedness to intervene emergently and I personally spent this critical care
[2020-11-08] MEDS: INSULIN DETEMIR 100 UNITS/ML 30 UNITS SUB-Q ×2 (08:37→21:22)
[2020-11-08] MEDS: FUROSEMIDE INJ 40 MG/4 ML VIAL IV PUSH (08:37)
[2020-11-08] MEDS: PANTOPRAZOLE SODIUM IV 40 MG VIAL IV PUSH (08:38)
[2020-11-08] MEDS: MINERAL OIL/WHITE PETROLATUM OINTMENT 1 APPLIC EACH EYE ×2 (08:38→21:21)
[2020-11-08] MEDS: TOLNAFTATE 1% POWDER 45 GM BTL 1 APPLIC TOPICAL ×2 (08:38→21:21)
[2020-11-08] MEDS: SODIUM BICARBONATE 8.4% 50 MEQ/50 ML SYRINGE 100 MEQ IV PUSH (08:51)
[2020-11-08] MEDS: SODIUM POLYSTYRENE SULFONONATE 15 GM/60 ML BTL 30 GM PO (08:51)
[2020-11-08] MEDS: INSULIN HUMAN REGULAR (*BKC) 100 UNITS/ML 10 UNITS IV PUSH (08:51)
[2020-11-08] MEDS: SODIUM CHLORIDE 0.9% IV 1,000 ML 999 ML IV CONT (08:52)
[2020-11-08] MEDS: BUDESONIDE RESPULE NEB 0.5 MG/2 ML AMP INHALATION ×2 (09:06→21:10)
[2020-11-08] MEDS: ALBUTEROL SULFATE NEB 2.5 MG/0.5 ML INH 20 MG INHALATION (09:07)
[2020-11-08 09:38] LABS: Alveolar/Arterial O2 Gradient 286.2 mmHg; Base Excess ABG -6.1 mEq/l (+/-2.0); Fractional Inspired Oxygen 80 %; HCO3 ABG 27.2 mEq/l (22.0-26.0); Oxygen Content ABG 18.8 %vol (16.0-22.0); Oxygen Saturation ABG 98.3 % (95.0-100.0); Oxyhemoglobin 97.4 % THb (90.0-100.0); PO2 ABG 174.2 mmHg (80.0-100.0); PO2 FiO2 Ratio Arterial Blood 2.18 %; Total Hemoglobin 13.5 g/dL (12.0-18.0)
[2020-11-08 09:39] LABS: pH ABG 7.032 (7.350-7.450)
[2020-11-08 09:40] LABS: Device VENTILATOR; Modified Allen's Test Pass; PCO2 ABG 104.8 mmHg (35.0-45.0); Site Drawn LEFT RADIAL
[2020-11-08 09:41] LABS: Arterial Blood Gas PEEP 14 cmH2O; Arterial Blood Gas Vent Mode CMV; Arterial Blood Gas Ventilator rate 28 /MIN
[2020-11-08 09:42] LABS: Arterial Blood Gas Tidal Volume 330 ml
--- NOTE | 2020-11-08 09:54 | PM.CNPUL ---
Assessment and Plan Assessment and plan (1) Acute respiratory failure with hypoxia: Code(s): J96.01 - Acute respiratory failure with hypoxia Status: Acute Assessment and Plan: patient presents with with shortness of breath over the last couple of weeks with were thickening orthopnea and now with diffuse interstitial and in alveolar infiltrates with hypoxemic and hypercarbic respiratory failure requiring intubation, sedation, paralysis and vasopressors for shock. Etiology at this time includes pneumonia (possible COVID, bacterial and doubt fungal or AFB), EVALI, ARDS, or vasculitis. at this time I agree with vancomycin, Levaquin and the addition of aztreonam. She has had a negative rapid COVID test and await the COVID PCR test prior to initiating any additional treatment. Agree with Solu-Medrol 60 mg IV q.6 hours per possible EVALI. consider other sources of infection resulting in ARDS as her white blood cell count has increased up to 31,000. will check amylase and lipase. Will send vasculitis workup and agree with current steroids at this time. I agree with transfer to center with higher level of care options as she has rapidly deteriorated. discussed with Dr. Conner History of Present Illness History of Present Illness Consult date: 11/08/20 Requesting physician: Crystal Conner MD Reason for consult: hypoxemia Chief complaint: acute respiratory failure with hypoxia,community-a Narrative: This is a new Pulmonary consult for hypoxemia. Patient is a 30-year-old female with a history of morbid obesity, history of influenza in 2020 status post transfer to [facility] for ECMO, tobacco use, current vaping use, untreated sleep apnea, asthma, diabetes, hypertension, hypothyroidism who presented to the hospital on 11/07 with shortness of breath. Per the hospital H&P patient had a few days shortness of breath and heard crackling in her lungs in the UR her saturations were 60% on room air and she was started on supplemental oxygen. Patient had a rapid test for COVID that was negative and a rapid test for influenza that was negative. She received her 2nd COVID vaccination approximately 1 month ago. patient had a chest x-ray demonstrating diffuse interstitial alveolar infiltrates and was started on methylprednisolone, bronchodilators, vanc and Levaquin for possible pneumonia and given IV Lasix for possible fluid overload. initial blood gas was 7.32/47/83. Patient continued to deteriorate and required intubation And now is in hypercarbic and hypoxemic respiratory failure with a blood gas of 7.03/105/174 on peep of 14 and FiO2 80%. patient is also in shock requiring vasopressin and Levophed. Patient is also sedated and paralyzed with fentanyl, Versed, propofol and CISatrocurium drips. 11/08 patient is intubated on the above-mentioned drips. Patient is on a respiratory rate of 30, tidal volume 330 approximately 7.5 mL/kilos, peep of 14 FiO2 80% with the above-mentioned blood gas. I have spoken with drop hammer mechanic and will attempt to increase respiratory rate to 34, increase the tidal volume is 350 and decrease the peep from 14-12. Review of Systems Review of Systems: Unable to obtain [facility] Past Medical History Medical History Anxiety Asthma Depression Gastroesophageal reflux disease Hypertension Hypothyroidism Influenza (03/2019) Complicated by post influenza pneumonia requiring intubation and transfer to tertiary care facility for ECMO. Obstructive sleep apnea Intolerant to CPAP. 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
[2020-11-08] MEDS: CALCIUM GLUC 2,000 MG/NS 100ML 2,000 MG/100 ML BAG 100 MG IVPB (10:02)
[2020-11-08] MEDS: FENTANYL 2,500MCG/NS250ML(*CRX 2,500 MCG/250 ML BAG 20 MCG IV CONT ×2 (10:03→22:50)
[2020-11-08] MEDS: MIDAZOLAM 100MG/NS 100ML(*CRX) 100 MG/100 ML BAG 6 MG IV CONT (10:08)
[2020-11-08] MEDS: NOREPINEPHRINE 8 MG/D5W 250 ML 8 MG/250 ML BAG 37.5 MG IV CONT (11:20)
[2020-11-08] MEDS: methylPREDNISolone SOD SUCC 125 MG VIAL 60 MG IV PUSH ×3 (12:16→23:45)
[2020-11-08 13:09] LABS: Alveolar/Arterial O2 Gradient 350.7 mmHg; Fractional Inspired Oxygen 80 %; HCO3 ABG 21.1 mEq/l (22.0-26.0); Oxygen Content ABG 18.7 %vol (16.0-22.0); Oxygen Saturation ABG 98.5 % (95.0-100.0); Oxyhemoglobin 97.1 % THb (90.0-100.0); PCO2 ABG 59.1 mmHg (35.0-45.0); PO2 ABG 157.7 mmHg (80.0-100.0); PO2 FiO2 Ratio Arterial Blood 1.97 %; Total Hemoglobin 13.5 g/dL (12.0-18.0)
[2020-11-08 13:12] LABS: pH ABG 7.171 (7.350-7.450)
[2020-11-08 13:13] LABS: Arterial Blood Gas Ventilator rate 34 /MIN; Device VENTILATOR; Modified Allen's Test Pass; Site Drawn LEFT RADIAL
[2020-11-08 13:14] LABS: Arterial Blood Gas PEEP 12 cmH2O; Arterial Blood Gas Pressure Support 0 cmH2O; Arterial Blood Gas Tidal Volume 350 ml; Arterial Blood Gas Vent Mode CMV
[2020-11-08 13:17] LABS: Anion Gap 15 mmol/L (8-16); Blood Urea Nitrogen 17 mg/dL (7-17); Calcium 8.2 mg/dL (8.4-10.2); Carbon Dioxide 24 mmol/L (22-30); Chloride 97 mmol/L (98-107); Estimated Glomerular Filt Rate 45; Glucose 554 mg/dL (65-110); Sodium 136 mmol/L (137-145)
[2020-11-08] MEDS: INSULIN HUMAN REGULAR (*BKC) 100 UNITS/ML 23 UNITS IV PUSH (13:26)
[2020-11-08] MEDS: INSULIN HUMAN REGULAR (*BKC) 100 UNITS in SODIUM CHLORIDE 0.9% IV 99 ML 8.1 UNITS IV CONT (13:26)
[2020-11-08] MEDS: AZTREONAM 2 GM in DEXTROSE 5% 100 ML IVPB ×2 (13:34→21:25)
[2020-11-08 14:02] LABS: Rheumatoid Factor 15.2 IU/ML (<12)
--- NOTE | 2020-11-08 15:20 | PM.IMPN ---
Progress Note: A&P Assessment and Plan (1) Acute respiratory failure with hypoxia: Code(s): J96.01 - Acute respiratory failure with hypoxia Status: Acute (2) Chest pain: Code(s): R07.9 - Chest pain, unspecified Status: Acute (3) Abnormal chest x-ray: Code(s): R93.89 - Abnormal findings on diagnostic imaging of other specified body structures Status: Acute (4) Obstructive sleep apnea: Code(s): G47.33 - Obstructive sleep apnea (adult) (pediatric) Status: Acute Assessment and Plan: Untreated at she reports an intolerance to PAP therapy. Encourage her to follow-up with her dishtank operator or sleep specialist as there are other options to try besides just to CPAP or BiPAP. (5) Hypertension: Code(s): I10 - Essential (primary) hypertension Status: Acute Assessment and Plan: Blood pressures were reviewed and they have been running high though have improved since she has been started on propofol post intubation. Continue to monitor closely. (6) Type 2 diabetes mellitus: Code(s): E11.9 - Type 2 diabetes mellitus without complications Status: Acute Assessment and Plan: Hemoglobin A1c is 9.3%. Initiate sliding scale insulin, Accu-Cheks, and hypoglycemic protocol. (7) Hypothyroidism: Code(s): E03.9 - Hypothyroidism, unspecified Status: Acute Assessment and Plan: Continue levothyroxine check TSH. Additional Plan Acute hypercarbic hypoxic respiratory failure in young female- transitioned from Bipap to mechanical ventilation -AC/34/330/80/14 -Sedation with Propofol, Versed, Fentanyl -nimbex drip Etiology unclear, pulm on board: -infectious? covid pending, cultures & covid tests pending. Currently, on Vanc, levaquin, aztreonam -inflammatory/autoimmune? Continue 60 q6 iv solumedrol & vasculitis workup sent -ARDS also possible Pressor support w/ levophed On the list for a bed at [facility]. Time Spent With Patient Time with patient: less than 15 minutes Subjective Date/time seen: 11/08/20 15:20 intubated, no meaningful interview possible Review of Systems Review of Systems: All systems reviewed & are unremarkable except as noted in HPI and below Exam Const: General: no acute distress Neck: Neck: no JVD Resp: Other: intubated, settings as documented Cardio: Rate: regular rate Rhythm: regular rhythm GI: GI Palp: Yes Soft to palpation and No Tenderness to palpation present (GI) Objective Data Vital Signs Vital Signs: Vital Signs - 24 hr 11/07/20 16:00 11/07/20 16:53 11/07/20 16:55 Temperature 99.7 F H Pulse Rate 88 87 87 Respiratory Rate 30 H 32 H 32 H Blood Pressure 180/95 H Pulse Oximetry 92 93 93 11/07/20 18:00 11/07/20 18:54 11/07/20 20:00 Temperature 98.8 F 98.4 F Pulse Rate 96 96 98 Respiratory Rate 30 H 35 H 35 H Blood Pressure 195/109 H 170/125 H Pulse Oximetry 92 91 11/07/20 20:35 11/07/20 20:41 11/07/20 20:45 Temperature Pulse Rate 113 H 113 H 108 H Respiratory Rate 36 H 32 H 38 H Blood Pressure 140/88 Pulse Oximetry 92 92 11/07/20 21:00 11/07/20 21:25 11/07/20 21:30 Temperature Pulse Rate 103 H 93 92 Respiratory Rate 32 H 34 H 40 H Blood Pressure 134/85 144/85 H Pulse Oximetry 94 99 11/07/20 21:45 11/07/20 21:50 11/07/20 22:00 Temperature Pulse Rate 109 H 92 104 H Respiratory Rate 34 H 20 24 H Blood Pressure 127/79 120/55 L Pulse Oximetry 81 L 81 L 11/07/20 22:08 11/07/20 22:09 11/07/20 22:48 Temperature Pulse Rate 124 H 124 H 119 H Respiratory Rate 24 H 24 H Blood Pressure 109/45 L Pulse Oximetry 11/07/20 22:51 11/07/20 23:01 11/07/20 23:06 Temperature Pulse Rate 121 H 119 H 122 H Respiratory Rate 26 H Blood Pressure 109/45 L 94/40 L Pulse Oximetry 83 L 11/07/20 23:18 11/07/20 23:45 11/08/20 00:00 Temperature 98.7 F Pulse Rate 122 H 118 H 118 H Respiratory Rate 26
[2020-11-08] MEDS: INSULIN HUMAN REGULAR (*BKC) 100 UNITS in SODIUM CHLORIDE 0.9% IV 99 ML 18.2 UNITS IV CONT (18:41)
[2020-11-08 18:46] LABS: Glucose Point of Care 472 mg/dl (65-105)
[2020-11-08 18:46] LABS: Glucose Point of Care 357 mg/dl (65-105)
[2020-11-08 18:46] LABS: Glucose Point of Care 479 mg/dl (65-105)
[2020-11-08 18:46] LABS: Glucose Point of Care 320 mg/dl (65-105)
[2020-11-08 18:46] LABS: Glucose Point of Care 457 mg/dl (65-105)
[2020-11-08 18:46] LABS: Glucose Point of Care 481 mg/dl (65-105)
[2020-11-08] MEDS: CISATRACURIUM BESYLATE 200 MG in DEXTROSE 5% 80 ML 13.2 ML IV CONT (21:20)
[2020-11-08 21:38] LABS: Glucose Point of Care 297 mg/dl (65-105)
[2020-11-08 21:38] LABS: Glucose Point of Care 343 mg/dl (65-105)
[2020-11-08 21:52] LABS: Anion Gap 13 mmol/L (8-16); Blood Urea Nitrogen 22 mg/dL (7-17); Carbon Dioxide 26 mmol/L (22-30); Chloride 99 mmol/L (98-107); Estimated Glomerular Filt Rate 38; Glucose 303 mg/dL (65-110); Potassium 4.8 mmol/L (3.4-5.0); Sodium 138 mmol/L (137-145)
[2020-11-08] MEDS: INSULIN HUMAN REGULAR (*BKC) 100 UNITS in SODIUM CHLORIDE 0.9% IV 99 ML 22.1 UNITS IV CONT (23:43)
[2020-11-09] VITALS (54 sets, daily range): BP systolic 102–128; BP diastolic 50–86; PULSE 73–112; RESP 34–36; TEMP 36.3–37.1; O2SAT 90–96; BMI 99.8
--- NOTE | 2020-11-09 | ECHO_ITS ---
Patient Info Name: Claudia Delgado Age: 30 years : 1990 Gender: Female Ht: 59 in Wt: 500 lbs BSA: 3.27 m2 HR: 94 bpm BP: 120 / 75 mmHg Heart Rhythm: Sinus Rhythm Exam Date: 11/09/2020 12:35 PM Exam Location: [facility] Patient Status: Inpatient Admit Date: 11/07/2020 Staff Ordering Physician: Crystal Conner MD Ui Software Engineer: Efrain Knight, SANDRA, RT Attending Provider: Tono Frank MD Referring Physician: Ubaldo JIMENEZ; Exam Type: CA echo doppler color flow Study Info Indications I50.9 - Heart failure, unspecified Complete two-dimensional, color flow and Doppler transthoracic echocardiogram is performed. Summary 1. Complete two-dimensional, color flow and Doppler transthoracic echocardiogram is performed. 2. Technically difficult study with limited views. Regional wall motion assessment limited due to poor endomyocardial border definition in several views. 3. Left ventricular systolic function is normal, estimated at 60-65%. 4. There is mildly increased left ventricular wall thickness. 5. Right atrial chamber dimension is mildly enlarged. 6. There is mild tricuspid valve regurgitation. 7. Mild pulmonary hypertension, estimated pulmonary arterial systolic pressure is 43 mmHg. 8. Right ventricle is not well visualized. 9. Right ventricular systolic function is probably normal. 10. Right ventricular chamber dimension is probably normal. 11. Dilated inferior vena cava with <50% collapse upon inspiration consistent with elevated right atrial pressure, 10 mmHg. Left Ventricle Left ventricular chamber dimension is normal. Left ventricular systolic function is normal, estimated at 60-65%. There is mildly increased left ventricular wall thickness. The left ventricular diastolic function is abnormal. Technically difficult study with limited views. Regional wall motion assessment limited due to poor endomyocardial border definition in several views. Right Ventricle Right ventricular chamber dimension is probably normal. Right ventricular systolic function is probably normal. Right ventricle is not well visualized. Left Atria Left atrial chamber dimension is normal. Right Atria Right atrial chamber dimension is mildly enlarged. Aortic Valve The aortic valve is not well visualized. There is no aortic valve stenosis. There is trace aortic valve regurgitation. Pulmonic Valve The pulmonic valve is not well visualized. Mitral Valve The mitral valve has normal leaflets. There is no mitral valve regurgitation. Tricuspid Valve The tricuspid valve leaflets are normal. There is mild tricuspid valve regurgitation. Mild pulmonary hypertension, estimated pulmonary arterial systolic pressure is 43 mmHg. Pericardium/Pleural The pericardium appears not well visualized. There is trivial pericardial effusion. Inferior Vena Cava Dilated inferior vena cava with <50% collapse upon inspiration consistent with elevated right atrial pressure, 10 mmHg. Aorta The aortic root size at the sinus of Valsalva is normal. Left Ventricular Outflow Tract Name Value Normal LVOT 2D LVOT Diameter 2.0 cm LVOT Doppler
[2020-11-09] MEDS: MIDAZOLAM 100MG/NS 100ML(*CRX) 100 MG/100 ML BAG 8 MG IV CONT (00:46)
[2020-11-09] MEDS: ALBUTEROL SULFATE NEB 2.5 MG/0.5 ML INH INHALATION ×4 (02:36→20:38)
[2020-11-09] MEDS: IPRATROPIUM BR 0.02% INH SOLN 0.5 MG/2.5 ML VIAL INHALATION ×4 (02:37→20:38)
[2020-11-09] MEDS: CISATRACURIUM BESYLATE 200 MG in DEXTROSE 5% 80 ML 23.1 ML IV CONT ×4 (02:54→15:37)
[2020-11-09 03:08] LABS: Hematocrit 37.8 % (37.0-47.0); Hemoglobin 11.5 g/dL (12.0-15.0); Mean Corpuscular HGB Conc 30.4 g/dl (32-36); Mean Corpuscular Hemoglobin 27.4 pg (26-34); Mean Corpuscular Volume 90.2 fl (80-100); Mean Platelet Volume 10.9 fl (7.4-10.4); Platelet Count Result 305 k/mm3 (150-375); Red Blood Count 4.19 M/mm3 (4.2-5.4); Red Cell Distribution Width 14.2 % (11.5-14.5); White Blood Count 11.5 K/mm3 (4.5-10.0)
[2020-11-09 03:20] LABS: Alanine Aminotransferase 28 U/L (4-35); Albumin Level 3.9 g/dL (3.5-5.1); Alkaline Phosphatase 75 U/L (38-126); Anion Gap 8 mmol/L (8-16); Aspartate Amino Transferase 25 U/L (14-36); Bilirubin,Total 0.4 mg/dL (0.2-1.3); Blood Urea Nitrogen 25 mg/dL (7-17); Calcium 8.1 mg/dL (8.4-10.2); Carbon Dioxide 29 mmol/L (22-30); Chloride 99 mmol/L (98-107); Estimated Glomerular Filt Rate 38; Glucose 243 mg/dL (65-110); Magnesium 1.7 mg/dL (1.6-2.3); Potassium 4.2 mmol/L (3.4-5.0); Sodium 136 mmol/L (137-145)
[2020-11-09 03:42] LABS: Vancomycin Trough 22.7 ug/mL (10.0-20.0)
[2020-11-09] MEDS: INSULIN HUMAN REGULAR (*BKC) 100 UNITS in SODIUM CHLORIDE 0.9% IV 99 ML 25.8 UNITS IV CONT (04:50)
[2020-11-09 04:55] LABS: Alveolar/Arterial O2 Gradient 158.1 mmHg; Base Excess ABG -2.7 mEq/l (+/-2.0); Carboxyhemoglobin 0.2 % THb (0-2.0); Fractional Inspired Oxygen 45 %; HCO3 ABG 26.6 mEq/l (22.0-26.0); Methemoglobin ABG 0.5 %THb (0-1.5); Oxygen Saturation ABG 93.7 % (95.0-100.0); Oxyhemoglobin 94.7 % THb (90.0-100.0); PO2 ABG 84.4 mmHg (80.0-100.0); PO2 FiO2 Ratio Arterial Blood 1.88 %; Reduced Hemoglobin 4.6 %THb (0-5.0); Total Hemoglobin 12.7 g/dL (12.0-18.0)
[2020-11-09 04:56] LABS: Device VENTILATOR; Modified Allen's Test Pass; PCO2 ABG 68.9 mmHg (35.0-45.0); Site Drawn LEFT RADIAL; pH ABG 7.204 (7.350-7.450)
[2020-11-09 04:57] LABS: Arterial Blood Gas PEEP 10 cmH2O; Arterial Blood Gas Tidal Volume 350 ml; Arterial Blood Gas Vent Mode CMV; Arterial Blood Gas Ventilator rate 34 /MIN
[2020-11-09] MEDS: AZTREONAM 2 GM in DEXTROSE 5% 100 ML IVPB ×3 (05:51→21:12)
[2020-11-09] MEDS: CENTRAL LINE FLUSH 10 ML IV PUSH ×4 (05:52→21:13)
[2020-11-09] MEDS: LEVOTHYROXINE SODIUM 75 MCG TABLET PO (05:52)
[2020-11-09] MEDS: methylPREDNISolone SOD SUCC 125 MG VIAL 60 MG IV PUSH ×4 (05:52→23:20)
[2020-11-09] MEDS: ENOXAPARIN 40 MG/0.4 ML SYRINGE SUB-Q ×2 (05:52→18:15)
[2020-11-09 06:12] LABS: Glucose Point of Care 279 mg/dl (65-105)
[2020-11-09 06:12] LABS: Glucose Point of Care 237 mg/dl (65-105)
[2020-11-09 06:12] LABS: Glucose Point of Care 221 mg/dl (65-105)
[2020-11-09 06:12] LABS: Glucose Point of Care 203 mg/dl (65-105)
[2020-11-09 06:12] LABS: Glucose Point of Care 236 mg/dl (65-105)
[2020-11-09 06:12] LABS: Glucose Point of Care 195 mg/dl (65-105)
[2020-11-09 06:12] LABS: Glucose Point of Care 251 mg/dl (65-105)
[2020-11-09 06:12] LABS: Glucose Point of Care 261 mg/dl (65-105)
[2020-11-09 06:46] LABS: Glucose Point of Care 206 mg/dl (65-105)
[2020-11-09 08:00] LABS: Glucose Point of Care 165 mg/dl (65-105)
--- NOTE | 2020-11-09 08:11 | PM.PNPUL ---
Progress Note: A&P Assessment and Plan (1) Acute respiratory failure with hypoxia: Code(s): J96.01 - Acute respiratory failure with hypoxia Status: Acute Assessment and Plan: 11/08 patient presents with with shortness of breath over the last couple of weeks with were thickening orthopnea and now with diffuse interstitial and in alveolar infiltrates with hypoxemic and hypercarbic respiratory failure requiring intubation, sedation, paralysis and vasopressors for shock. Etiology at this time includes pneumonia (possible COVID, Influenza rapid test in ED negative, bacterial and doubt fungal or AFB), EVALI, ARDS, eosinophilc pneumonia or vasculitis. at this time I agree with vancomycin, Levaquin and the addition of aztreonam. She has had a negative rapid COVID test and await the COVID PCR test prior to initiating any additional treatment. Agree with Solu-Medrol 60 mg IV q.6 hours per possible EVALI. consider other sources of infection resulting in ARDS as her white blood cell count has increased up to 31,000. will check amylase and lipase. Patient was admitted with a white blood cell count of 11.7 with 2% eosinophils or 234 per micro L. on 10/05/2020 she had a white blood cell count of 9.1 with 3.5% eosinophils or 319 eosinophils per micro L. she did receive Solu-Medrol 125 mg IV in the emergency department on 11/07 at 9:58 a.m. and she continued to deteriorate despite this making eosinophilic pneumonia less likely. Will send vasculitis workup and agree with current steroids at this time. I agree with transfer to center with higher level of care options as she has rapidly deteriorated. 11/09 11/09 Patient remains intubated on cisatrocurium, fentanyl, Versed drips. She is off vasopressin and off Levophed currently. ABG this morning is 7.20//84 on CMV Thirty for with a tidal volume of 350 with peep of 10 and FiO2 of 45%. She has been switched to pressure control ventilation for high peak airway pressures and currently is on pressure control ventilation rate of 36, pressure of 32, peep of 10, 45% FiO2 with sats 95%. chest x-ray with mildly improved diffuse interstitial and alveolar infiltrates. Rheumatoid factor is 15.2 with normal being less than 12. Sputum gram stain with ferw epithelial cells, few WBC and NOS. Blood cultures negative. with Overall she has improved. Etiology of respiratory failure unclear, possible EVALI responding to steroids, possible vasculitis responding to steroids, possible bacterial pneumonia responding to antibiotics, possible eosinophilc pneumonia responding to ssteroids. . Doubt ARDS from alternative infection,doubt COVID but awaiting RT-PCR study. Although RF is slightly high at 15.2 (normal <12), doubt rheumatoid arthritis vasculitis, will await anti CCP antibody. Continue solumedrol 60 Q 6 and levaquin, aztreonam and vancomycin for now. Carries diagnosis of asthma and no wheezes on albuterol 2.5 mg nebs Q 6 hours, ipratropium 0.5 mg neb q.6 hours, budesonide 0.5 mg nebs q.12 hours and Solu-Medrol [address] Conner Subjective Date/time seen: 11/09/20 08:11 Interval history: 11/08/20 This is a new Pulmonary consult for hypoxemia. Patient is a 30-year-old female with a history of morbid obesity, history of influenza in 2020 status post transfer to [facility] for ECMO, tobacco use, current vaping use, untreated sleep apnea, asthma, diabetes, hypertension, hypothyroidism who presented to the hospital on 11/07 with shortness of breath. Per the hospital H&P patient had a few days shortness of breath and heard crackling in her lungs in the UR her saturations were 60% on room air and she was started on supplemental oxygen. Patient had a rapid test for COVID that was negative and a rapid test for influenza that was negative. She received her 2nd COVID vaccination approximately 1 month ago. patient had a chest x-ray demonstrating diffuse interstitial alveolar infiltrates and was sta
[2020-11-09] MEDS: BUDESONIDE RESPULE NEB 0.5 MG/2 ML AMP INHALATION ×2 (08:20→20:38)
--- NOTE | 2020-11-09 08:20 | WPDINTPN ---
Progress Note: A&P Assessment and Plan (1) Shock: Code(s): R57.9 - Shock, unspecified Status: Acute Assessment and Plan: Leukocytosis along with bilateral infiltrates, possible pneumonia, COVID, hypersensitivity pneumonitis, ARDS, other source of infection -patient has been on Levophed and vasopressin which are currently OFF -continue to maintain MAP > 65 mmHg -continue to monitor urine output, which has been adequate despite creatinine trending up -11/07: Blood cultures x2 negative so far, -11/08: Sputum Culture negative so far -continue aztreonam, Levaquin and vancomycin (2) Acute respiratory failure with hypoxemia: Code(s): J96.01 - Acute respiratory failure with hypoxia Status: Acute Assessment and Plan: Acute hypoxic respiratory failure, could be related to COVID pneumonia, community-acquired pneumonia, vaping (EVALI), ARDS -influenza a and B were negative -SARS-CoV-2 PCR has been ordered and pending -rapid COVID test was negative -patient failed BiPAP due to tachypnea. Patient was intubated on 11/07/2020 at night -patient is a CMV mode of ventilation, tidal volume 350 which is 7.5 mL/kg, rate of 34, peep of 10, 45% FiO2. Peak pressures elevated. Patient is on higher tidal volumes as unable to ventilate the patient, so had to increase her tidal volumes -elevated peak pressures, switched to pressure control ventilation, will repeat gases -chest x-ray and ABGs reviewed. Chest x-ray shows improvement in alveolar and interstitial infiltrates -continue bronchodilators -continue pulmicort (3) Vaping-related disorder: Code(s): U07.0 - Vaping-related disorder Status: Acute Assessment and Plan: Patient with history of e- cigarettes/vaping -patient giving history of 2 weeks of worsening onset of shortness of breath, this could be related to EVALI (e-cigarette or vaping associated lung injury) -continue Solu-Medrol -appreciate pulmonology evaluation, agrees with treatment plan (4) Chest pain: Code(s): R07.9 - Chest pain, unspecified Status: Acute Assessment and Plan: Patient complains of substernal chest pain without any radiation. EKG shows sinus tachycardia with no ST-T changes -troponins negative x4, -04/15/2019 echocardiogram showed LV systolic function to be normal, EF 65-70% focal into examine because of obesity, no significant valvular lesion seen on Doppler -repeat echocardiogram pending (5) Hypertension, essential: Code(s): I10 - Essential (primary) hypertension Status: Acute Assessment and Plan: Patient has been on vasopressin and Levophed, will hold all antihypertensive -pressures (6) Diabetes mellitus: Qualifiers: Diabetes mellitus type: type 2 Diabetes mellitus terminal make up operator insulin use: without terminal make up operator use Diabetes mellitus complication status: with hyperglycemia Qualified Code(s): E11.65 - Type 2 diabetes mellitus with hyperglycemia Code(s): E11.9 - Type 2 diabetes mellitus without complications Status: Acute Assessment and Plan: Patient with history of diabetes and hyperglycemia -hemoglobin A1c this admission is 9.6 -Accu-Cheks and high-dose sliding scale insulin Patient hyperglycemic, was started on insulin infusion -continue Levemir (7) Hypothyroid: Qualifiers: Hypothyroidism type: acquired Qualified Code(s): E03.9 - Hypothyroidism, unspecified Code(s): E03.9 - Hypothyroidism, unspecified Status: Acute Assessment and Plan: Will continue levothyroxine, switched to IV (8) Suspected COVID-19 virus infection: Code(s): Z20.822 - Contact with and (suspected) exposure to COVID-19 Status: Acute Assessment and Plan: Patient with upper acute hypoxic respiratory failure, denies any contacts or exposure with COVID patient -patient did receive a 2nd dose of Moderna COVID vaccine in September 2020 -SARS-CoV-2 PCR has been obtained and pending -11/07:
[2020-11-09] MEDS: INSULIN HUMAN REGULAR (*BKC) 100 UNITS in SODIUM CHLORIDE 0.9% IV 99 ML 16.7 UNITS IV CONT (08:46)
[2020-11-09] MEDS: TOLNAFTATE 1% POWDER 45 GM BTL 1 APPLIC TOPICAL ×2 (08:49→20:59)
[2020-11-09] MEDS: INSULIN DETEMIR 100 UNITS/ML 30 UNITS SUB-Q ×2 (08:49→21:13)
[2020-11-09] MEDS: MINERAL OIL/WHITE PETROLATUM OINTMENT 1 APPLIC EACH EYE ×2 (08:50→20:59)
[2020-11-09] MEDS: PANTOPRAZOLE SODIUM IV 40 MG VIAL IV PUSH (08:50)
[2020-11-09] MEDS: FUROSEMIDE INJ 40 MG/4 ML VIAL IV PUSH (08:51)
[2020-11-09 09:15] LABS: Glucose Point of Care 153 mg/dl (65-105)
[2020-11-09 09:50] LABS: Glucose Point of Care 139 mg/dl (65-105)
[2020-11-09 10:04] LABS: Anion Gap 11 mmol/L (8-16); Blood Urea Nitrogen 27 mg/dL (7-17); Calcium 7.8 mg/dL (8.4-10.2); Carbon Dioxide 27 mmol/L (22-30); Chloride 101 mmol/L (98-107); Estimated Glomerular Filt Rate 41; Glucose 140 mg/dL (65-110); Potassium 4.2 mmol/L (3.4-5.0); Sodium 139 mmol/L (137-145)
[2020-11-09 10:20] LABS: D Dimer 0.68 ug/mL (<0.48)
--- NOTE | 2020-11-09 10:51 | PCDIET ---
MD order to start Glucerna 1.2 at 20mL/hr today. Requesting use of ideal body weight for energy calculations. Thus, goal will be around 40mL/hr x 22 hours/day to avoid overfeeding.
[2020-11-09 11:30] LABS: Glucose Point of Care 129 mg/dl (65-105)
[2020-11-09] MEDS: FENTANYL 2,500MCG/NS250ML(*CRX 2,500 MCG/250 ML BAG 17.5 MCG IV CONT (11:53)
[2020-11-09] MEDS: MIDAZOLAM 100MG/NS 100ML(*CRX) 100 MG/100 ML BAG 7 MG IV CONT (11:54)
[2020-11-09 12:17] LABS: Glucose Point of Care 157 mg/dl (65-105)
[2020-11-09 13:01] LABS: Alveolar/Arterial O2 Gradient 178.4 mmHg; Base Excess ABG 2.6 mEq/l (+/-2.0); Fractional Inspired Oxygen 45 %; HCO3 ABG 30.6 mEq/l (22.0-26.0); Oxygen Content ABG 15.5 %vol (16.0-22.0); Oxygen Saturation ABG 90.9 % (95.0-100.0); Oxyhemoglobin 92.6 % THb (90.0-100.0); PO2 ABG 67.9 mmHg (80.0-100.0); PO2 FiO2 Ratio Arterial Blood 1.51 %; Total Hemoglobin 11.9 g/dL (12.0-18.0)
[2020-11-09 13:03] LABS: Device VENTILATOR; Modified Allen's Test Unable to perform; PCO2 ABG 65.5 mmHg (35.0-45.0); Site Drawn LEFT RADIAL; pH ABG 7.288 (7.350-7.450)
[2020-11-09 13:04] LABS: Arterial Blood Gas PEEP 10 cmH2O; Arterial Blood Gas Vent Mode PRESSURE CONTROL; Arterial Blood Gas Ventilator rate 36 /MIN; Peak Inspiratory Pressure 32 cmH2O
[2020-11-09 13:10] LABS: Potassium Urine Random 22.2 meq/L; Sodium Urine Random 49 meq/L
[2020-11-09 13:13] LABS: Eosinophil Urine None Seen % (None Seen)
--- NOTE | 2020-11-09 13:49 | PM.IMPN ---
Progress Note: A&P Assessment and Plan (1) Acute respiratory failure with hypoxia: Code(s): J96.01 - Acute respiratory failure with hypoxia Status: Acute Assessment and Plan: Etiology at this time includes pneumonia (possible COVID, rapid COVID test was negative; PCR pending, Influenza rapid test in ED negative, bacterial ), EVALI, ARDS, per pulmonary evaluation. We will continue vancomycin, Levaquin and the addition of aztreonam. In consideration for possible EVALI, she was started on solu-Medrol 60 mg IV q.6 hours. She had significant leucocytosis which can partially be attributed to treatment which steroids and is resolving quickly. We will follow up on vasculitis workup per pulmonary. We will continue efforts to transfer to a center with higher level of care options. Previously on CMV 34/350/45%/10. Due to elevated peak pressures she was switched to pressure control ventilation. Repeat gas:7.28/65/67/30/90. Chest x-ray and ABGs were reviewed. Chest x-ray shows improvement in alveolar and interstitial infiltrates. continue aggressive bronchodilation and continue pulmicort. Currently on sedation with Propofol, Versed, Fentanyl (2) Obstructive sleep apnea: Code(s): G47.33 - Obstructive sleep apnea (adult) (pediatric) Status: Acute Assessment and Plan: Previously untreated. Now intubated on mechanical ventilation. Follow-up with her medical record technician or sleep specialist upon discharge. (3) Hypertension: Code(s): I10 - Essential (primary) hypertension Status: Acute Assessment and Plan: Currently on levophed and vasopressin. (4) Type 2 diabetes mellitus: Code(s): E11.9 - Type 2 diabetes mellitus without complications Status: Acute Assessment and Plan: Accuchecks in the 129-157 range. Continue sliding scale insulin, Accu-Cheks, and hypoglycemic protocol. (5) Hypothyroidism: Code(s): E03.9 - Hypothyroidism, unspecified Status: Acute Assessment and Plan: Supplemented. Continue levothyroxine. Additional Plan e Pressor support w/ levophed On the list for a bed at [facility]. Subjective Date/time seen: 11/09/20 11:00 This is a 30-year-old female with history of tobacco abuse now vaping, morbid obesity, untreated sleep apnea, asthma, diabetes, hypertension, hypothyroidism, and history of post influenza pneumonia requiring intubation and transfer to [facility] for ECMO in March 2019 who presented to the emergency department on from home for evaluation of shortness of breath. She was admitted for acute hypoxic respiratory failure, diagnosed with COVID19 pneumonia.She was hypercarbic and hypoxemic with respiratory failure with a blood gas of 7.03/105/174 on peep of 14 and FiO2 80%. She was hypotensive, requiring vasopressin and Levophed. Patient is also sedated and paralyzed with fentanyl, Versed, propofol and Cisatrocurium drips. On day 2 of her admission, the patient is intubated. Currntly remains intubated on mechanical ventilation. Efforts to transfer to higher level of care due to her complicated medical condition have been unsuccessful S: PAtient is intubated and sedated.. Review of Systems Review of Systems: ROS unobtainable: Yes unobtainable due to endotracheal tube Exam Narrative: Morbidly obese Const: General: comfortable and no acute distress HENMT: Other: ETT in place Eyes: Sclera: sclerae normal Pupils: Equal, round and reactive pupils present Neck: Neck: supple and no JVD Thyroid: thyroid normal Lymphatic: lymphadenopathy not noted Resp: Effort & Inspection: normal respiratory effort Auscultation: rales and diminished lung sounds Other: Distant and coarse breath sounds bilaterally Cardio: Rate: regular rate Rhythm: regular rhythm GI: Inspection: non-distended Auscultation: abnormal bowel sounds (Distant and hypoactive bowel sounds) Other: Morbidly obese, significant abdominal
[2020-11-09 14:07] LABS: Glucose Point of Care 143 mg/dl (65-105)
[2020-11-09 14:21] LABS: CRP 16.1 mg/dL (<1.0); Creatine Kinase 204 U/L (30-135); Lactate Dehydrogenase 781 U/L (313-618)
[2020-11-09] MEDS: INSULIN HUMAN REGULAR (*BKC) 100 UNITS in SODIUM CHLORIDE 0.9% IV 99 ML 11.9 UNITS IV CONT (15:00)
--- NOTE | 2020-11-09 15:50 | PM.CNNEP ---
Assessment and Plan Assessment and plan (1) Acute kidney injury: Code(s): N17.9 - Acute kidney failure, unspecified Status: Acute Assessment and Plan: the patient has normal underlying kidneys. She has a rising creatinine. Her renal function was normal on admission and is now high. On the 1st day she had lots of urine output and her creatinine lucrecia but in spite of positive intake/ output on the 2nd day her creatinine still lucrecia by the 3rd morning so it is unclear that this is purely pre renal. He is also on pressors and possibly has an infection so this could be ATN from that. Her urine electrolytes are not pre renal. She was not on diuretics before she came in although did receive 1 dose of diuretics on the day of admission. It is been 2 days since she had the furosemide so I do not think that has an affect anymore , so I do not think the furosemide is affecting the result of the urine electrolytes. The renal ultrasound does not show obstruction. Kidney size looked okay on both sides. I suspect that this may be ATN. The COVID test is pending. Because she does have significant pulmonary infiltrates I hesitate to give her aggressive fluid resuscitation because of the risk of worsening oxygen exchange. So I am going to hold off on the fluids for now. She is getting a significant amount of obligate fluids anyway between her Nimbex, sedatives, Levaquin, and other IV medications so that she will be getting some fluid anyway. If the COVID test is negative and the pulmonary situation is good tomorrow then possibly of fluid bolus would be reasonable if her creatinine is higher. (2) Shock: Code(s): R57.9 - Shock, unspecified Status: Acute Assessment and Plan: The patient is on Levophed. He is getting antibiotics. Cultures are pending. (3) Person under investigation for COVID-19: Code(s): Z20.822 - Contact with and (suspected) exposure to COVID-19 Status: Acute Assessment and Plan: She is on respiratory isolation. COVID test pending (4) Acute respiratory failure with hypoxia: Code(s): J96.01 - Acute respiratory failure with hypoxia Status: Acute Assessment and Plan: she is on the ventilator and 45% oxygen (5) Obstructive sleep apnea: Code(s): G47.33 - Obstructive sleep apnea (adult) (pediatric) Status: Acute Assessment and Plan: on the ventilator now anyway (6) Hypertension: Code(s): I10 - Essential (primary) hypertension Status: Acute Assessment and Plan: blood pressure is on the low side. Holding outpatient antihypertensive (7) Hypothyroidism: Code(s): E03.9 - Hypothyroidism, unspecified Status: Acute Assessment and Plan: on supplement (8) Type 2 diabetes mellitus: Code(s): E11.9 - Type 2 diabetes mellitus without complications Status: Acute Assessment and Plan: on Accu-Cheks and sliding-scale insulin History of Present Illness Reason for Consult Consult date: 11/09/20 Chief Complaint Chief complaint: acute respiratory failure with hypoxia,community-a History of Present Illness Narrative: Claudia is an unfortunate 30-year-old lady who has multiple medical problems including severe obesity, history of viral pneumonia requiring ECMO treatment, hypertension, hypothyroidism, diabetes, anxiety, asthma, GERD, sleep apnea but is intolerant to CPAP, current vaping. the patient came to the emergency room a couple of days ago complaining of 2 weeks of progressively worsened shortness of breath. It was worse on exertion. She also tried using inhalers but these only worked partially well. Things continue to worsen so she came to the ER. In the ER she was found to have diffuse lung disease on her chest x-ray consistent with a viral pneumonia, hypoxia requiring oxygen supplementation, and she was admitted to the floor. COVID test was done and wa
[2020-11-09 15:58] LABS: Glucose Point of Care 126 mg/dl (65-105)
[2020-11-09 15:58] LABS: Glucose Point of Care 118 mg/dl (65-105)
[2020-11-09 18:33] LABS: Glucose Point of Care 149 mg/dl (65-105)
[2020-11-09 19:01] LABS: SARS-CoV-2 RNA PCR Negative
[2020-11-09 19:30] LABS: Glucose Point of Care 138 mg/dl (65-105)
[2020-11-09] MEDS: CISATRACURIUM BESYLATE 200 MG in DEXTROSE 5% 80 ML 19.8 ML IV CONT (20:26)
[2020-11-09 21:04] LABS: Glucose Point of Care 128 mg/dl (65-105)
[2020-11-09] MEDS: INSULIN HUMAN REGULAR (*BKC) 100 UNITS in SODIUM CHLORIDE 0.9% IV 99 ML 9.7 UNITS IV CONT (22:17)
[2020-11-09 22:21] LABS: Glucose Point of Care 114 mg/dl (65-105)
[2020-11-09 23:26] LABS: Glucose Point of Care 101 mg/dl (65-105)
[2020-11-10] VITALS (40 sets, daily range): BP systolic 122–171; BP diastolic 67–120; PULSE 73–123; RESP 36; TEMP 36.5–37.2; O2SAT 92–98
[2020-11-10 00:46] LABS: Glucose Point of Care 108 mg/dl (65-105)
[2020-11-10] MEDS: MIDAZOLAM 100MG/NS 100ML(*CRX) 100 MG/100 ML BAG 7 MG IV CONT ×2 (01:08→16:11)
[2020-11-10] MEDS: CISATRACURIUM BESYLATE 200 MG in DEXTROSE 5% 80 ML 19.8 ML IV CONT ×5 (01:09→21:24)
[2020-11-10] MEDS: FENTANYL 2,500MCG/NS250ML(*CRX 2,500 MCG/250 ML BAG 17.5 MCG IV CONT ×2 (02:42→18:07)
[2020-11-10] MEDS: IPRATROPIUM BR 0.02% INH SOLN 0.5 MG/2.5 ML VIAL INHALATION ×4 (02:45→20:35)
[2020-11-10] MEDS: ALBUTEROL SULFATE NEB 2.5 MG/0.5 ML INH INHALATION ×4 (02:45→20:35)
[2020-11-10 02:46] LABS: Glucose Point of Care 133 mg/dl (65-105)
[2020-11-10 04:17] LABS: Glucose Point of Care 125 mg/dl (65-105)
[2020-11-10 05:12] LABS: Alveolar/Arterial O2 Gradient 263.1 mmHg; Carboxyhemoglobin 0.3 % THb (0-2.0); Fractional Inspired Oxygen 55 %; HCO3 ABG 28.6 mEq/l (22.0-26.0); Methemoglobin ABG 0.3 %THb (0-1.5); Oxygen Content ABG 16.1 %vol (16.0-22.0); Oxyhemoglobin 92.6 % THb (90.0-100.0); PCO2 ABG 53.2 mmHg (35.0-45.0); PO2 ABG 69.9 mmHg (80.0-100.0); PO2 FiO2 Ratio Arterial Blood 1.27 %; Reduced Hemoglobin 6.8 %THb (0-5.0); Total Hemoglobin 12.3 g/dL (12.0-18.0); pH ABG 7.348 (7.350-7.450)
[2020-11-10 05:13] LABS: Arterial Blood Gas PEEP 10 cmH2O; Arterial Blood Gas Vent Mode PRESSURE CONTROL; Arterial Blood Gas Ventilator rate 36 /MIN; Device VENTILATOR; Modified Allen's Test Unable to perform; Peak Inspiratory Pressure 32 cmH2O; Site Drawn RIGHT RADIAL
[2020-11-10 05:14] LABS: Hemoglobin 11.2 g/dL (12.0-15.0); Mean Corpuscular HGB Conc 31.1 g/dl (32-36); Mean Corpuscular Hemoglobin 27.4 pg (26-34); Mean Platelet Volume 10.7 fl (7.4-10.4); Platelet Count Result 326 k/mm3 (150-375); Red Blood Count 4.09 M/mm3 (4.2-5.4); Red Cell Distribution Width 13.9 % (11.5-14.5)
[2020-11-10 05:49] LABS: Alanine Aminotransferase 24 U/L (4-35); Albumin Level 3.6 g/dL (3.5-5.1); Alkaline Phosphatase 67 U/L (38-126); Anion Gap 6 mmol/L (8-16); Aspartate Amino Transferase 31 U/L (14-36); Bilirubin,Total 0.2 mg/dL (0.2-1.3); Blood Urea Nitrogen 38 mg/dL (7-17); Calcium 8.2 mg/dL (8.4-10.2); Carbon Dioxide 32 mmol/L (22-30); Chloride 100 mmol/L (98-107); Estimated Glomerular Filt Rate 45; Glucose 131 mg/dL (65-110); Magnesium 1.8 mg/dL (1.6-2.3); Potassium 4.1 mmol/L (3.4-5.0); Sodium 138 mmol/L (137-145)
[2020-11-10] MEDS: methylPREDNISolone SOD SUCC 125 MG VIAL 60 MG IV PUSH (05:50)
[2020-11-10] MEDS: ENOXAPARIN 40 MG/0.4 ML SYRINGE SUB-Q ×2 (05:51→18:09)
[2020-11-10 05:55] LABS: Glucose Point of Care 115 mg/dl (65-105)
[2020-11-10] MEDS: AZTREONAM 2 GM in DEXTROSE 5% 100 ML IVPB ×2 (06:01→14:15)
[2020-11-10] MEDS: CENTRAL LINE FLUSH 10 ML IV PUSH ×4 (06:43→23:31)
[2020-11-10] MEDS: LEVOTHYROXINE SODIUM 75 MCG TABLET PO (06:55)
[2020-11-10 06:59] LABS: Glucose Point of Care 132 mg/dl (65-105)
--- NOTE | 2020-11-10 08:07 | PM.PNPUL ---
Progress Note: A&P Assessment and Plan (1) Acute respiratory failure with hypoxia: Code(s): J96.01 - Acute respiratory failure with hypoxia Status: Acute Assessment and Plan: 11/08 patient presents with with shortness of breath over the last couple of weeks with were thickening orthopnea and now with diffuse interstitial and in alveolar infiltrates with hypoxemic and hypercarbic respiratory failure requiring intubation, sedation, paralysis and vasopressors for shock. Etiology at this time includes pneumonia (possible COVID, Influenza rapid test in ED negative, bacterial and doubt fungal or AFB), EVALI, ARDS, eosinophilc pneumonia or vasculitis. at this time I agree with vancomycin, Levaquin and the addition of aztreonam. She has had a negative rapid COVID test and await the COVID PCR test prior to initiating any additional treatment. Agree with Solu-Medrol 60 mg IV q.6 hours per possible EVALI. consider other sources of infection resulting in ARDS as her white blood cell count has increased up to 31,000. will check amylase and lipase. Patient was admitted with a white blood cell count of 11.7 with 2% eosinophils or 234 per micro L. on 10/05/2020 she had a white blood cell count of 9.1 with 3.5% eosinophils or 319 eosinophils per micro L. she did receive Solu-Medrol 125 mg IV in the emergency department on 11/07 at 9:58 a.m. and she continued to deteriorate despite this making eosinophilic pneumonia less likely. Will send vasculitis workup and agree with current steroids at this time. I agree with transfer to center with higher level of care options as she has rapidly deteriorated. 11/09 11/09 Patient remains intubated on cisatrocurium, fentanyl, Versed drips. She is off vasopressin and off Levophed currently. ABG this morning is 7.20//84 on CMV RR34 with a tidal volume of 350 with peep of 10 and FiO2 of 45%. She has been switched to pressure control ventilation for high peak airway pressures and currently is on pressure control ventilation rate of 36, pressure of 32, peep of 10, 45% FiO2 with sats 95%. chest x-ray with mildly improved diffuse interstitial and alveolar infiltrates. Rheumatoid factor is 15.2 with normal being less than 12. Sputum gram stain with ferw epithelial cells, few WBC and NOS. Blood cultures negative. with Overall she has improved. Etiology of respiratory failure unclear, possible EVALI responding to steroids, possible vasculitis responding to steroids, possible bacterial pneumonia responding to antibiotics, possible eosinophilc pneumonia responding to steroids. . Doubt ARDS from alternative infection,doubt COVID but awaiting RT-PCR study. Although RF is slightly high at 15.2 (normal <12), doubt rheumatoid arthritis vasculitis, will await anti CCP antibody. Continue solumedrol 60 Q 6 and levaquin, aztreonam and vancomycin for now. Carries diagnosis of asthma and no wheezes on albuterol 2.5 mg nebs Q 6 hours, ipratropium 0.5 mg neb q.6 hours, budesonide 0.5 mg nebs q.12 hours and Solu-Medrol 60 q.6h. 11/10 Etiology of respiratory failure is unclear and she is stabilized with 48 hours of high-dose steroids and broad-spectrum antibiotics. Her COVID RT PCR study is negative. No other infectious sites have been identified that could be resulting in ARDS. Await remainder of vasculitis serologies. Agree with continued treatment for EVALI and infection. For EVALI would taper steroids to off over 10 days and today will decreased to Solu-Medrol 40 q.6h. Patient on Levaquin, aztreonam and vancomycin with negative cultures. Deescalation per core analyst. She has a history of asthma although her home medication list does not contain any inhalers. She has no wheezes at this time on albuterol, ipratropium, budesonide nebulizers, and systemic steroids with Solu-Medrol. Continue bronchodilators and inhaled steroids for now. Will sign off, discussed with Dr. Fox, call with any questions. Subjective Date/time
[2020-11-10] MEDS: INSULIN HUMAN REGULAR (*BKC) 100 UNITS in SODIUM CHLORIDE 0.9% IV 99 ML 9.9 UNITS IV CONT (08:10)
[2020-11-10 08:13] LABS: Glucose Point of Care 115 mg/dl (65-105)
--- NOTE | 2020-11-10 08:14 | PM.PNNEP ---
Progress Note: A&P Assessment and Plan (1) Acute kidney injury: Code(s): N17.9 - Acute kidney failure, unspecified Status: Acute Assessment and Plan: the patient has normal underlying kidneys. She had a rising creatinine. urine electrolytes are non pre renal renal ultrasound is negative CK only minimally elevated most likely the patient has ATN due to infection and former hypotension. Now she is on antibiotics. She is off pressors and her blood pressure seems to be better. She is getting IV fluids through medications and intake/ output is positive. Her creatinine is a little bit better. Will continue following. (2) Shock: Code(s): R57.9 - Shock, unspecified Status: Acute Assessment and Plan: The patient is Off Levophed now. (3) Person under investigation for COVID-19: Code(s): Z20.822 - Contact with and (suspected) exposure to COVID-19 Status: Acute Assessment and Plan: She is on respiratory isolation. COVID test Negative (4) Acute respiratory failure with hypoxia: Code(s): J96.01 - Acute respiratory failure with hypoxia Status: Acute Assessment and Plan: she is on the ventilator and 45% oxygen (5) Obstructive sleep apnea: Code(s): G47.33 - Obstructive sleep apnea (adult) (pediatric) Status: Acute Assessment and Plan: on the ventilator now (6) Hypertension: Code(s): I10 - Essential (primary) hypertension Status: Acute Assessment and Plan: blood pressure is on the low side. Holding outpatient antihypertensive (7) Hypothyroidism: Code(s): E03.9 - Hypothyroidism, unspecified Status: Acute Assessment and Plan: on supplement (8) Type 2 diabetes mellitus: Code(s): E11.9 - Type 2 diabetes mellitus without complications Status: Acute Assessment and Plan: on Accu-Cheks and sliding-scale insulin Subjective Date/time seen: 11/10/20 08:14 Interval history: Patient is sedated and on the ventilator. Exam Narrative: WDWN Female on the ventilator and sedated skin no rash head ncat lungs coarse bilaterally cor reg no rub or gallop abd BS+ nontender and soft ext no edema. Objective Data Vital Signs Vital Signs: Vital Signs - 24 hr 11/09/20 08:23 11/09/20 08:25 11/09/20 08:47 Temperature Pulse Rate 93 91 91 Respiratory Rate 36 H 36 H Blood Pressure 115/71 Pulse Oximetry 95 11/09/20 09:45 11/09/20 10:00 11/09/20 10:43 Temperature Pulse Rate 93 93 90 Respiratory Rate 36 H 36 H 36 H Blood Pressure 119/75 104/60 104/58 L Pulse Oximetry 95 11/09/20 10:44 11/09/20 10:49 11/09/20 11:26 Temperature Pulse Rate 90 89 92 Respiratory Rate 36 H 36 H Blood Pressure Pulse Oximetry 95 11/09/20 11:35 11/09/20 11:53 11/09/20 11:54 Temperature Pulse Rate 90 92 90 Respiratory Rate 36 H 36 H 36 H Blood Pressure 106/63 Pulse Oximetry 11/09/20 11:55 11/09/20 12:00 11/09/20 13:55 Temperature 36.5 C Pulse Rate 92 93 92 Respiratory Rate 36 H 36 H 36 H Blood Pressure 120/75 102/61 Pulse Oximetry 94 95 11/09/20 14:00 11/09/20 14:35 11/09/20 14:38 Temperature 36.4 C Pulse Rate 92 90 82 Respiratory Rate 36 H 36 H Blood Pressure 115/79 Pulse Oximetry 96 95 11/09/20 15:37 11/09/20 15:49 11/09/20 16:00 Temperature 36.6 C Pulse Rate 85 85 84 Respiratory Rate 36 H 36 H 36 H Blood Pressure 127/83 128/86 Pulse Oximetry 94 95 11/09/20 17:00 11/09/20 18:00 11/09/20 18:13 Temperature 36.8 C Pulse Rate 78 94 96 Respiratory Rate 36 H 36 H Blood Pressure 128/83 128/83 Pulse Oximetry 94 93 11/09/20 19:26 11/09/20 20:00 11/09/20 20:15 Temperature 36.6 C Pulse Rate 95 92 91 Respiratory Rate 36 H 36 H 36 H Blood Pressure 123/76 122/77 122/77 Pulse Oximetry 92 11/09/20 20:26 11/09/20 20:39 11/09/20 20:40 Temperature
[2020-11-10] MEDS: FUROSEMIDE INJ 40 MG/4 ML VIAL IV PUSH (08:33)
[2020-11-10] MEDS: PANTOPRAZOLE SODIUM IV 40 MG VIAL IV PUSH (08:33)
[2020-11-10] MEDS: MINERAL OIL/WHITE PETROLATUM OINTMENT 1 APPLIC EACH EYE ×2 (08:34→20:13)
[2020-11-10] MEDS: TOLNAFTATE 1% POWDER 45 GM BTL 1 APPLIC TOPICAL ×2 (08:34→20:14)
[2020-11-10] MEDS: BUDESONIDE RESPULE NEB 0.5 MG/2 ML AMP INHALATION ×2 (08:58→20:34)
[2020-11-10 09:09] LABS: Glucose Point of Care 113 mg/dl (65-105)
[2020-11-10] MEDS: INSULIN DETEMIR 100 UNITS/ML 30 UNITS SUB-Q ×2 (09:09→10:16)
--- NOTE | 2020-11-10 09:50 | WPDINTPN ---
Progress Note: A&P Assessment and Plan (1) Acute respiratory failure with hypoxemia: Code(s): J96.01 - Acute respiratory failure with hypoxia Status: Acute Assessment and Plan: Acute hypoxic respiratory failure, could be related to ARDS likely secondary to vaping (EVALI) versus community-acquired pneumonia -influenza a and B were negative, -SARS-CoV-2 PCR was negative -patient failed BiPAP due to tachypnea. Patient was intubated on 11/07/2020 at night -currently patient is on pressure control ventilation with rate set at 36, FiO2 is 55% peep is at 10 -she is currently sedated and paralyzed with Nimbex -chest x-ray and ABG reviewed -continue bronchodilators -continue pulmicort -continue gentle diuresis to keep her even -continue Solu-Medrol and dose has been adjusted by Pulmonary lead sales consultant (2) Shock: Code(s): R57.9 - Shock, unspecified Status: Acute Assessment and Plan: Leukocytosis along with bilateral infiltrates, possible pneumonia, hypersensitivity pneumonitis, ARDS, other source of infection -off of vasopressors this time -continue to maintain MAP > 65 mmHg -continue to monitor urine output, which has been adequate despite creatinine trending up -11/07: Blood cultures x2 negative so far, -11/08: Sputum Culture negative so far -continue aztreonam and vancomycin. Will DC Levaquin at this time -check procalcitonin (3) Vaping-related disorder: Code(s): U07.0 - Vaping-related disorder Status: Acute Assessment and Plan: Patient with history of e- cigarettes/vaping -patient giving history of 2 weeks of worsening onset of shortness of breath, this could be related to EVALI (e-cigarette or vaping associated lung injury) -continue Solu-Medrol as per Pulmonary -appreciate pulmonology evaluation, agrees with treatment plan (4) Chest pain: Code(s): R07.9 - Chest pain, unspecified Status: Acute Assessment and Plan: Patient complains of substernal chest pain without any radiation. EKG shows sinus tachycardia with no ST-T changes -troponins negative x4, -echocardiogram reviewed -likely pleuritic pain from inflammation (5) Diabetes mellitus: Qualifiers: Diabetes mellitus type: type 2 Diabetes mellitus exterminator helper insulin use: without exterminator helper use Diabetes mellitus complication status: with hyperglycemia Qualified Code(s): E11.65 - Type 2 diabetes mellitus with hyperglycemia Code(s): E11.9 - Type 2 diabetes mellitus without complications Status: Acute Assessment and Plan: Patient with history of diabetes and hyperglycemia -hemoglobin A1c this admission is 9.6 -Accu-Cheks and high-dose sliding scale insulin -continue Levemir (6) Hypothyroid: Qualifiers: Hypothyroidism type: acquired Qualified Code(s): E03.9 - Hypothyroidism, unspecified Code(s): E03.9 - Hypothyroidism, unspecified Status: Acute Assessment and Plan: Will continue levothyroxine, switched to IV (7) Suspected COVID-19 virus infection: Code(s): Z20.822 - Contact with and (suspected) exposure to COVID-19 Status: Acute Assessment and Plan: Patient with upper acute hypoxic respiratory failure, denies any contacts or exposure with COVID patient -patient did receive a 2nd dose of Moderna COVID vaccine in September 2020 -SARS-CoV-2 PCR was negative (8) DVT prophylaxis: Code(s): Z29.9 - Encounter for prophylactic measures, unspecified Status: Acute Assessment and Plan: Given the body habitus on enoxaparin 40 mg SQ Q12H Additional Plan 11/08/2020:: [facility] 2 times and they are not placing any patient is on the list 11/08/2020: Called [facility], they have placed patient on the list but do not have an ICU bed Discussed with Dr. Fox and nephrology Code status: Full code Critical care time spent: 30 minutes This dictation may have been done utili
[2020-11-10] MEDS: INSULIN HUMAN REGULAR (*BKC) 100 UNITS in SODIUM CHLORIDE 0.9% IV 99 ML 10.1 UNITS IV CONT (10:15)
[2020-11-10 10:16] LABS: Glucose Point of Care 116 mg/dl (65-105)
[2020-11-10 11:13] LABS: Add Urine Microscopic? YES; Appearance Urine Clear (Clear); Bacteria Urine Trace /hpf; Bilirubin Urine Negative (Negative); Blood Urine 1+ (Negative); Color Urine Straw (Yellow); Glucose Urine UA Negative (Negative); Ketones Urine Negative (Negative); Leukocyte Esterase Ur Negative LEU/UL (NEGATIVE); Mucus Urine Rare /lpf; Nitrate Urine Negative (Negative); Protein Urine Negative (Negative); Specific Grav Ur 1.008 (1.001-1.035); Urobilinogen Urine Negative mg/dL (<2.0); WBC Urine 0-3 /hpf (0-3)
[2020-11-10 11:20] LABS: Glucose Point of Care 115 mg/dl (65-105)
--- NOTE | 2020-11-10 11:21 | PCDIET ---
Nutrition Follow-Up Complete: Nutrition Diagnosis: Inadequate oral intake related to oral intubation as evidenced by NPO status. Nutrition Goal: Patient to meet estimated nutritional needs. Goal in progress. Glucerna 1.2 increased to 30mL/hr today with residuals in the 120mL range. Recommended increase to goal of 40mL/hr, as tolerated. Water flush of 30mL every 4 hours continued. Last recorded weight is 226 kg which is increased from last review. Bowel Motility: No documented BM. Labs Reviewed: RBC (4.09), Hgb (11.2), Hct (36.0), Glu (132), BUN (38), Cr (1.4), Ca (8.2) Meds Noted: Albuterol, Aztreonam, Fentanyl, Lasix, IV Insulin, Atrovent, Pulmicort, Nimbex, Levemir, Synthroid, Solu Medrol, Versed, Protonix, Vancomycin Additional Notes: No documented skin breakdown. Will continue to monitor with same goal. Nutrition Monitoring and Evaluation: Follow up every Monday/Monday. Follow daily in ICU rounds.
[2020-11-10] MEDS: methylPREDNISolone SOD SUCC 40 MG VIAL IV PUSH ×2 (11:27→18:09)
[2020-11-10 12:16] LABS: Glucose Point of Care 122 mg/dl (65-105)
[2020-11-10 13:30] LABS: Glucose Point of Care 110 mg/dl (65-105)
[2020-11-10 14:24] LABS: Glucose Point of Care 124 mg/dl (65-105)
[2020-11-10 15:25] LABS: Glucose Point of Care 147 mg/dl (65-105)
[2020-11-10 16:24] LABS: Glucose Point of Care 138 mg/dl (65-105)
[2020-11-10] MEDS: INSULIN HUMAN REGULAR (*BKC) 100 UNITS in SODIUM CHLORIDE 0.9% IV 99 ML 15.8 UNITS IV CONT (17:30)
[2020-11-10 17:36] LABS: Glucose Point of Care 148 mg/dl (65-105)
--- NOTE | 2020-11-10 18:32 | PM.IMPN ---
Progress Note: A&P Assessment and Plan (1) Acute respiratory failure with hypoxia: Code(s): J96.01 - Acute respiratory failure with hypoxia Status: Acute Assessment and Plan: Differential diagnosis includes bacterial pneumonia ( COVID and influenza both negative), EVALI, ARDS, . We will continue vamcomycin and aztreonam. Blood cultures are non revealing. In consideration for possible EVALI, she was started on solu-Medrol 60 mg IV q.6 hours. She had significant leucocytosis which can partially be attributed to treatment which steroids and is resolving quickly. We will follow up on vasculitis workup per pulmonary. We will continue efforts to transfer to a center with higher level of care options. Currently patient is on pressure control ventilation with rate set at 36, FiO2 is 55% peep is at 10 -she is currently sedated and paralyzed with Nimbex -chest x-ray and ABG reviewed -continue bronchodilators -continue pulmicort -continue gentle diuresis to keep her even -continue Solu-Medrol , (2) Obstructive sleep apnea: Code(s): G47.33 - Obstructive sleep apnea (adult) (pediatric) Status: Acute Assessment and Plan: Previously untreated. Now intubated on mechanical ventilation. Follow-up with her gear lapper or sleep specialist upon discharge. (3) Hypertension: Code(s): I10 - Essential (primary) hypertension Status: Acute Assessment and Plan: Currently off. Gentle diuresis to maintain even balance. (4) Type 2 diabetes mellitus: Code(s): E11.9 - Type 2 diabetes mellitus without complications Status: Acute Assessment and Plan: Accuchecks in the 110-170 range. Continue sliding scale insulin, Accu-Cheks, and hypoglycemic protocol. (5) Hypothyroidism: Code(s): E03.9 - Hypothyroidism, unspecified Status: Acute Assessment and Plan: Supplemented. Continue levothyroxine. (6) Chest pain: Code(s): R07.9 - Chest pain, unspecified Status: Acute Assessment and Plan: Troponin (-) X 4 (7) Acute kidney injury: Code(s): N17.9 - Acute kidney failure, unspecified Status: Acute Assessment and Plan: Likely prerenal versus ATN in the setting of shock. Resolving non oliguric JENNIFER. Creatinine trending down, which is very reassuring. Monitor I and Os closely. Keep MAP> 65. (8) Community acquired pneumonia: Code(s): J18.9 - Pneumonia, unspecified organism Status: Acute Assessment and Plan: Persistent leukocytosis along with bilateral infiltrates, possible pneumonia, hypersensitivity pneumonitis, ARDS, other source of infection -off of vasopressors this time -continue to maintain MAP > 65 mmHgmild -resolving JENNIFER: creatinine trending down -11/07: Blood cultures x2 negative so far, -11/08: Sputum Culture negative so far -continue aztreonam and vancomycin. Levaquin was stopped -follow up procalcitonin Additional Plan Patient improving, remains critical with challenging airways. Remains on the list for a bed at [facility]. Subjective Date/time seen: This is a 30-year-old female with history of tobacco abuse now vaping, morbid obesity, untreated sleep apnea, asthma, diabetes, hypertension, hypothyroidism, and history of post influenza pneumonia requiring intubation and transfer to [facility] for ECMO in March 2019 who presented to the emergency department on from home for evaluation of shortness of breath. She was admitted for acute hypoxic respiratory failure, diagnosed with COVID19 pneumonia.She was hypercarbic and hypoxemic with respiratory failure with a blood gas of 7.03/105/174 on peep of 14 and FiO2 80%. She is opff pressors. Patient is also sedated and paralyzed with nimbex. On day 2 of her admission, the patient is intubated. Currently remains intubated on mechanical ventilation. S: PAtient is intubated and sedated.. Objective Data Vital Signs Vital
[2020-11-10 18:36] LABS: Glucose Point of Care 170 mg/dl (65-105)
[2020-11-10] MEDS: hydrALAZINE HCL 20 MG/ML VIAL IV PUSH (20:05)
[2020-11-10 20:17] LABS: Glucose Point of Care 144 mg/dl (65-105)
[2020-11-10] MEDS: INSULIN DETEMIR 100 UNITS/ML 60 UNITS SUB-Q (20:18)
--- NOTE | 2020-11-10 21:16 | PC.NURSE ---
Spoke with Dr. Fox regarding ST of 120 sustained post 1 hr oral care. Current sedation relayed as well with vital signs and vent settings. May start low dose propofol.
[2020-11-10] MEDS: PROPOFOL IV EMULSION 100 ML 20.34 MG IV CONT (21:51)
[2020-11-10 21:59] LABS: Glucose Point of Care 153 mg/dl (65-105)
[2020-11-10] MEDS: AZTREONAM 2 GM in DEXTROSE 5% 100 ML 200 ML IVPB (22:00)
[2020-11-10] MEDS: INSULIN HUMAN REGULAR (*BKC) 100 UNITS in SODIUM CHLORIDE 0.9% IV 99 ML 12.4 UNITS IV CONT (23:30)
[2020-11-10 23:47] LABS: Glucose Point of Care 129 mg/dl (65-105)
[2020-11-11] VITALS (62 sets, daily range): BP systolic 129–180; BP diastolic 65–101; PULSE 64–119; RESP 32–38; TEMP 36.3–36.9; O2SAT 93–98
[2020-11-11] MEDS: methylPREDNISolone SOD SUCC 40 MG VIAL IV PUSH ×5 (00:30→23:45)
--- NOTE | 2020-11-11 00:48 | PC.NURSE ---
[facility] called regarding possible bed available at [facility] in [facility]. Dr. Fox called, currently not looking for [facility] transfer. Currently only looking for [facility] transfer.
[2020-11-11 01:23] LABS: Glucose Point of Care 147 mg/dl (65-105)
[2020-11-11] MEDS: PROPOFOL IV EMULSION 100 ML 20.34 MG IV CONT ×3 (01:39→12:00)
[2020-11-11] MEDS: CISATRACURIUM BESYLATE 200 MG in DEXTROSE 5% 80 ML 19.8 ML IV CONT ×2 (02:30→06:27)
[2020-11-11] MEDS: IPRATROPIUM BR 0.02% INH SOLN 0.5 MG/2.5 ML VIAL INHALATION ×4 (02:34→19:52)
[2020-11-11] MEDS: ALBUTEROL SULFATE NEB 2.5 MG/0.5 ML INH INHALATION ×4 (02:34→19:52)
[2020-11-11 02:57] LABS: Glucose Point of Care 128 mg/dl (65-105)
[2020-11-11 04:19] LABS: Alveolar/Arterial O2 Gradient 149.7 mmHg; Base Excess ABG 3.8 mEq/l (+/-2.0); Carboxyhemoglobin 0.3 % THb (0-2.0); Fractional Inspired Oxygen 40 %; Methemoglobin ABG 0.5 %THb (0-1.5); Oxygen Content ABG 16.4 %vol (16.0-22.0); Oxygen Saturation ABG 94.6 % (95.0-100.0); Oxyhemoglobin 93.5 % THb (90.0-100.0); PCO2 ABG 52.3 mmHg (35.0-45.0); PO2 ABG 75.4 mmHg (80.0-100.0); PO2 FiO2 Ratio Arterial Blood 1.88 %; Reduced Hemoglobin 5.7 %THb (0-5.0); Total Hemoglobin 12.4 g/dL (12.0-18.0); pH ABG 7.376 (7.350-7.450)
[2020-11-11 04:20] LABS: Arterial Blood Gas PEEP 10 cmH2O; Arterial Blood Gas Vent Mode CMV; Arterial Blood Gas Ventilator rate 36 /MIN; Device VENTILATOR; Modified Allen's Test Pass; Site Drawn RIGHT RADIAL
[2020-11-11 04:21] LABS: Arterial Blood Gas Pressure Support 32 cmH2O
[2020-11-11 04:39] LABS: Hematocrit 36.7 % (37.0-47.0); Hemoglobin 11.3 g/dL (12.0-15.0); Mean Corpuscular HGB Conc 30.8 g/dl (32-36); Mean Corpuscular Hemoglobin 27.7 pg (26-34); Mean Platelet Volume 10.7 fl (7.4-10.4); Platelet Count Result 300 k/mm3 (150-375); Red Blood Count 4.08 M/mm3 (4.2-5.4); Red Cell Distribution Width 13.9 % (11.5-14.5); White Blood Count 7.7 K/mm3 (4.5-10.0)
[2020-11-11 04:53] LABS: Alanine Aminotransferase 25 U/L (4-35); Albumin Level 3.6 g/dL (3.5-5.1); Alkaline Phosphatase 62 U/L (38-126); Anion Gap 6 mmol/L (8-16); Aspartate Amino Transferase 35 U/L (14-36); Bilirubin,Total 0.3 mg/dL (0.2-1.3); Blood Urea Nitrogen 41 mg/dL (7-17); Calcium 8.4 mg/dL (8.4-10.2); Carbon Dioxide 32 mmol/L (22-30); Chloride 99 mmol/L (98-107); Estimated Glomerular Filt Rate 59; Glucose 149 mg/dL (65-110); Magnesium 2.3 mg/dL (1.6-2.3); Phosphorus 4.7 mg/dL (2.5-4.5); Sodium 137 mmol/L (137-145)
[2020-11-11 05:51] LABS: Glucose Point of Care 130 mg/dl (65-105)
[2020-11-11 05:56] LABS: Glucose Point of Care 124 mg/dl (65-105)
[2020-11-11] MEDS: ENOXAPARIN 40 MG/0.4 ML SYRINGE SUB-Q ×2 (06:04→17:13)
[2020-11-11] MEDS: MIDAZOLAM 100MG/NS 100ML(*CRX) 100 MG/100 ML BAG 7 MG IV CONT ×2 (06:08→19:10)
[2020-11-11] MEDS: FENTANYL 2,500MCG/NS250ML(*CRX 2,500 MCG/250 ML BAG 20 MCG IV CONT ×2 (06:09→18:28)
[2020-11-11] MEDS: CENTRAL LINE FLUSH 10 ML IV PUSH ×4 (06:10→21:26)
[2020-11-11] MEDS: LEVOTHYROXINE SODIUM 75 MCG TABLET PO (06:16)
[2020-11-11] MEDS: INSULIN HUMAN REGULAR (*BKC) 100 UNITS in SODIUM CHLORIDE 0.9% IV 99 ML 12.6 UNITS IV CONT (06:27)
[2020-11-11] MEDS: AZTREONAM 2 GM in DEXTROSE 5% 100 ML 200 ML IVPB ×3 (06:33→21:26)
[2020-11-11 07:24] LABS: Glucose Point of Care 148 mg/dl (65-105)
--- NOTE | 2020-11-11 07:45 | PM.PNNEP ---
Progress Note: A&P Assessment and Plan (1) Acute kidney injury: Code(s): N17.9 - Acute kidney failure, unspecified Status: Acute Assessment and Plan: the patient has normal underlying kidneys. She had a rising creatinine. urine electrolytes are non pre renal renal ultrasound is negative CK only minimally elevated most likely the patient has ATN due to infection and former hypotension. Now she is on antibiotics. She is off pressors and her blood pressure seems to be better. creatinine is improving. (2) Shock: Code(s): R57.9 - Shock, unspecified Status: Acute Assessment and Plan: improved with good bp (3) Person under investigation for COVID-19: Code(s): Z20.822 - Contact with and (suspected) exposure to COVID-19 Status: Acute Assessment and Plan: She is on respiratory isolation. COVID test Negative (4) Acute respiratory failure with hypoxia: Code(s): J96.01 - Acute respiratory failure with hypoxia Status: Acute Assessment and Plan: she is on the ventilator (5) Obstructive sleep apnea: Code(s): G47.33 - Obstructive sleep apnea (adult) (pediatric) Status: Acute Assessment and Plan: on the ventilator now (6) Hypertension: Code(s): I10 - Essential (primary) hypertension Status: Acute Assessment and Plan: blood pressure is improved. now in the 130 to 150 range. still off antihypertensives. (7) Hypothyroidism: Code(s): E03.9 - Hypothyroidism, unspecified Status: Acute Assessment and Plan: on supplement (8) Type 2 diabetes mellitus: Code(s): E11.9 - Type 2 diabetes mellitus without complications Status: Acute Assessment and Plan: on Accu-Cheks and sliding-scale insulin Subjective Date/time seen: 11/11/20 07:45 Interval history: Patient is sedated and on the ventilator. hemodynamically stable Exam Narrative: WDWN Female on the ventilator and sedated skin no rash or sq nodules head ncat lungs coarse bilaterally cor reg no rub or gallop abd BS+ nontender and soft ext trace edema but no cyanosis. Objective Data Vital Signs Vital Signs: Vital Signs - 24 hr 11/10/20 08:00 11/10/20 08:54 11/10/20 08:58 Temperature 36.5 C Pulse Rate 78 78 83 Respiratory Rate 36 H 36 H Blood Pressure 143/80 H Pulse Oximetry 96 96 11/10/20 09:05 11/10/20 10:00 11/10/20 11:00 Temperature Pulse Rate 85 80 73 Respiratory Rate 36 H 36 H 36 H Blood Pressure 155/91 H 152/85 H Pulse Oximetry 94 11/10/20 11:30 11/10/20 12:00 11/10/20 13:57 Temperature 36.9 C Pulse Rate 80 88 79 Respiratory Rate 36 H Blood Pressure 168/98 H Pulse Oximetry 95 93 92 11/10/20 14:00 11/10/20 14:04 11/10/20 14:16 Temperature Pulse Rate 73 78 80 Respiratory Rate 36 H 36 H 36 H Blood Pressure 156/120 H 156/120 H Pulse Oximetry 92 11/10/20 16:00 11/10/20 16:11 11/10/20 16:24 Temperature 37.2 C Pulse Rate 75 78 88 Respiratory Rate 36 H 36 H 36 H Blood Pressure 163/91 H 171/97 H Pulse Oximetry 97 11/10/20 17:29 11/10/20 18:00 11/10/20 18:07 Temperature Pulse Rate 92 90 91 Respiratory Rate 36 H 36 H Blood Pressure 166/93 H Pulse Oximetry 98 97 11/10/20 20:00 11/10/20 20:31 11/10/20 20:32 Temperature 37.0 C Pulse Rate 96 106 H 106 H Respiratory Rate 36 H 36 H 36 H Blood Pressure 163/97 H 163/97 H Pulse Oximetry 97 11/10/20 20:36 11/10/20 20:51 11/10/20 21:24 Temperature Pulse Rate 113 H 123 H 118 H Respiratory Rate 36 H 36 H 36 H Blood Pressure 152/67 H Pulse Oximetry 11/10/20 21:51 11/10/20 22:00 11/11/20 00:00 Temperature 36.6 C Pulse Rate 115 H 111 H 90 Respiratory Rate 36 H 36 H 36 H Blood Pressure 155/83 H 144/81 H Pulse Oximetry 96 98 11/11/20 00:18 11/11/20 01:19 11/11/20 01:20 Temperature Pulse Rate 98 90 90 Respiratory
[2020-11-11 08:40] LABS: Glucose Point of Care 147 mg/dl (65-105)
--- NOTE | 2020-11-11 08:54 | WPDINTPN ---
Progress Note: A&P Assessment and Plan (1) Acute respiratory failure with hypoxemia: Code(s): J96.01 - Acute respiratory failure with hypoxia Status: Acute Assessment and Plan: Acute hypoxic respiratory failure, could be related to ARDS likely secondary to vaping (EVALI) versus community-acquired pneumonia -influenza a and B were negative, -SARS-CoV-2 PCR was negative -patient failed BiPAP due to tachypnea. Patient was intubated on 11/07/2020 at night -currently patient is on pressure control ventilation with rate set at 36, FiO2 is 40% peep is at 10 -she is currently sedated and paralyzed with Nimbex. I will pause Nimbex and do a trial of paralytic to see patient tolerates -chest x-ray and ABG reviewed. Decrease respiratory rate to 32 -continue bronchodilators -continue pulmicort -continue gentle diuresis to keep her even on her balance -continue Solu-Medrol and dose has been adjusted by Pulmonary microsoft bi consultant (2) Shock: Code(s): R57.9 - Shock, unspecified Status: Acute Assessment and Plan: Leukocytosis along with bilateral infiltrates, possible pneumonia, hypersensitivity pneumonitis, ARDS, other source of infection -off of vasopressors this time -continue to maintain MAP > 65 mmHg -continue to monitor urine output, which has been adequate despite creatinine trending up -11/07: Blood cultures x2 negative so far, -11/08: Sputum Culture negative so far -continue aztreonam and vancomycin. DCed Levaquin 11/10 -pending procalcitonin. 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 EKG shows sinus tachycardia with no ST-T changes -troponins negative x4, -echocardiogram reviewed -likely pleuritic pain from inflammation (5) Diabetes mellitus: Qualifiers: Diabetes mellitus type: type 2 Diabetes mellitus exterminator termite insulin use: without snf use Diabetes mellitus complication status: with hyperglycemia Qualified Code(s): E11.65 - Type 2 diabetes mellitus with hyperglycemia Code(s): E11.9 - Type 2 diabetes mellitus without complications Status: Acute Assessment and Plan: Patient with history of diabetes and hyperglycemia -hemoglobin A1c this admission is 9.6 -Accu-Cheks and high-dose sliding scale insulin -continue Levemir (6) Hypothyroid: Qualifiers: Hypothyroidism type: acquired Qualified Code(s): E03.9 - Hypothyroidism, unspecified Code(s): E03.9 - Hypothyroidism, unspecified Status: Acute Assessment and Plan: Will continue levothyroxine, switched to IV (7) Suspected COVID-19 virus infection: Code(s): Z20.822 - Contact with and (suspected) exposure to COVID-19 Status: Acute Assessment and Plan: Patient with upper acute hypoxic respiratory failure, denies any contacts or exposure with COVID patient -patient did receive a 2nd dose of Moderna COVID vaccine in September 2020 -SARS-CoV-2 PCR was negative (8) DVT prophylaxis: Code(s): Z29.9 - Encounter for prophylactic measures, unspecified Status: Acute Assessment and Plan: Given the body habitus on enoxaparin 40 mg SQ Q12H (9) Acute kidney injury: Code(s): N17.9 - Acute kidney failure, unspecified Status: Acute Assessment and Plan: Renal ultrasound was unremarkable Creatinine is improving and electrolytes accept Nephrology is fol
[2020-11-11] MEDS: BUDESONIDE RESPULE NEB 0.5 MG/2 ML AMP INHALATION ×2 (09:14→19:52)
[2020-11-11] MEDS: PANTOPRAZOLE SODIUM IV 40 MG VIAL IV PUSH (09:29)
[2020-11-11] MEDS: FUROSEMIDE INJ 40 MG/4 ML VIAL IV PUSH (09:30)
[2020-11-11] MEDS: TOLNAFTATE 1% POWDER 45 GM BTL 1 APPLIC TOPICAL ×2 (09:30→21:25)
[2020-11-11] MEDS: MINERAL OIL/WHITE PETROLATUM OINTMENT 1 APPLIC EACH EYE ×2 (09:30→21:25)
[2020-11-11] MEDS: INSULIN DETEMIR 100 UNITS/ML 60 UNITS SUB-Q ×2 (09:32→21:25)
--- NOTE | 2020-11-11 09:49 | PM.IMPN ---
Progress Note: A&P Assessment and Plan (1) Acute respiratory failure with hypoxemia: Code(s): J96.01 - Acute respiratory failure with hypoxia Status: Acute Assessment and Plan: Acute hypoxic respiratory failure, could be related to ARDS likely secondary to vaping (EVALI) versus community-acquired pneumonia -influenza a and B were negative, -SARS-CoV-2 PCR was negative -patient failed BiPAP due to tachypnea. Patient was intubated on 11/07/2020 at night -currently patient is on pressure control ventilation with rate set at 32, FiO2 is 40% peep is at 10 -she is currently sedated and paralyzed with Nimbex. Patient is to undergo a trial of paralytic to see patient tolerates -chest x-ray and ABG reviewed. Decrease respiratory rate to 32 -continue bronchodilators -continue pulmicort -continue gentle diuresis to keep her even on her balance -continue Solu-Medrol and dose has been adjusted by Pulmonary freight traffic consultant (2) Shock: Code(s): R57.9 - Shock, unspecified Status: Acute Assessment and Plan: Leukocytosis with bilateral infiltrates, possible pneumonia, hypersensitivity pneumonitis, ARDS, other source of infection -off of vasopressors this time -continue to maintain MAP > 65 mmHg -continue to monitor urine output, which has been adequate. -11/07: Blood cultures x2 negative so far, -11/08: Sputum Culture negative so far -continue aztreonam and vancomycin. Levaquin was stopped on 11/10 -pending procalcitonin. 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 EKG shows sinus tachycardia with no ST-T changes -troponins negative x4, -echocardiogram reviewed -likely pleuritic pain from inflammation (5) Diabetes mellitus: Qualifiers: Diabetes mellitus type: type 2 Diabetes mellitus residential insulin use: without residential use Diabetes mellitus complication status: with hyperglycemia Qualified Code(s): E11.65 - Type 2 diabetes mellitus with hyperglycemia Code(s): E11.9 - Type 2 diabetes mellitus without complications Status: Acute Assessment and Plan: Patient with history of diabetes and hyperglycemia -hemoglobin A1c this admission is 9.6 -Accu-Checks in the 124-148 range; continue high-dose sliding scale insulin -continue Levemir (6) Hypothyroid: Qualifiers: Hypothyroidism type: acquired Qualified Code(s): E03.9 - Hypothyroidism, unspecified Code(s): E03.9 - Hypothyroidism, unspecified Status: Acute Assessment and Plan: Continue IV levothyroxine (7) Suspected COVID-19 virus infection: Code(s): Z20.822 - Contact with and (suspected) exposure to COVID-19 Status: Acute Assessment and Plan: Patient with upper acute hypoxic respiratory failure, denies any contacts or exposure with COVID patient -patient did receive a 2nd dose of Moderna COVID vaccine in September 2020 -SARS-CoV-2 PCR was negative (8) DVT prophylaxis: Code(s): Z29.9 - Encounter for prophylactic measures, unspecified Status: Acute Assessment and Plan: Continue enoxaparin 40 mg SQ Q12H (9) Acute kidney injury: Code(s): N17.9 - Acute kidney failure, unspecified Status: Acute Assessment and Plan: Renal ultrasound was unremarkable Likely prerenal versus ATN in the setting of shock. Resolving non oliguric JENNIFER. Creatinine trending down, wh
[2020-11-11 10:19] LABS: Glucose Point of Care 136 mg/dl (65-105)
[2020-11-11 11:06] LABS: Glucose Point of Care 138 mg/dl (65-105)
--- NOTE | 2020-11-11 11:12 | PCFNICU ---
ICU Rounding Note: Pt current nutrition is Glucerna 1.2 at 40 ml/hr over 22 hours. Last recorded weight is 226.5 kg, up from 224 kg on admit. Bowel Motility:No BM reported. Labs Reviewed:PO4 4.7,Cr 1.10,BUN 41,Hct 36.7,Hgb 11.3 Meds Noted:Levemir,Propofol, Albuterol, Aztreonam, Fentanyl, Lasix, IV Insulin, Atrovent, Pulmicort,Synthroid, Solu Medrol, Versed, Protonix, Vancomycin. Additional Notes: Mechanical vent. Tolerating tube feeding of Glucerna 1.2 at 40 ml/hr over 22 hours. Propofol at 6.78 ml/tv=426 kcals. Skin: Bilateral Lower skin fold abdomen-rash. Following daily in ICU rounds. Assessing/reassessing Monday and Monday.
[2020-11-11 12:04] LABS: Glucose Point of Care 132 mg/dl (65-105)
[2020-11-11] MEDS: hydrALAZINE HCL 20 MG/ML VIAL IV PUSH (12:25)
[2020-11-11] MEDS: polyethylene glycoL 3350 17 GM POWD.PACK PO (12:30)
[2020-11-11 13:09] LABS: Glucose Point of Care 128 mg/dl (65-105)
[2020-11-11] MEDS: INSULIN HUMAN REGULAR (*BKC) 100 UNITS in SODIUM CHLORIDE 0.9% IV 99 ML 12.2 UNITS IV CONT (13:09)
[2020-11-11] MEDS: LABETALOL HCL INJ 100 MG/20 ML VIAL 20 MG IV PUSH (13:35)
[2020-11-11 14:08] LABS: Glucose Point of Care 138 mg/dl (65-105)
[2020-11-11 15:05] LABS: Glucose Point of Care 157 mg/dl (65-105)
[2020-11-11] MEDS: PROPOFOL IV EMULSION 100 ML 33.9 MG IV CONT ×3 (15:57→21:11)
[2020-11-11 16:13] LABS: Glucose Point of Care 152 mg/dl (65-105)
--- NOTE | 2020-11-11 16:17 | PC.NURSE ---
On 11/11/20, the student, SN Umber[facility], provided care and completed [facility] documentation on this patient. I have reviewed the student's documentation and agree with the findings.
[2020-11-11 17:06] LABS: Vancomycin Trough 10.9 ug/mL (10.0-20.0)
[2020-11-11 18:32] LABS: Glucose Point of Care 141 mg/dl (65-105)
[2020-11-11 18:32] LABS: Glucose Point of Care 172 mg/dl (65-105)
[2020-11-11 19:03] LABS: Glucose Point of Care 181 mg/dl (65-105)
[2020-11-11] MEDS: INSULIN HUMAN REGULAR (*BKC) 100 UNITS in SODIUM CHLORIDE 0.9% IV 99 ML 23 UNITS IV CONT (19:48)
[2020-11-11 21:15] LABS: Glucose Point of Care 132 mg/dl (65-105)
[2020-11-11 22:23] LABS: Glucose Point of Care 132 mg/dl (65-105)
[2020-11-11] MEDS: PROPOFOL IV EMULSION 100 ML 40.68 MG IV CONT (23:43)
[2020-11-11 23:54] LABS: Glucose Point of Care 121 mg/dl (65-105)
[2020-11-12] VITALS (51 sets, daily range): BP systolic 122–172; BP diastolic 56–95; PULSE 81–132; RESP 14–37; TEMP 36.5–37.2; O2SAT 93–98
[2020-11-12] MEDS: INSULIN HUMAN REGULAR (*BKC) 100 UNITS in SODIUM CHLORIDE 0.9% IV 99 ML 13.1 UNITS IV CONT (01:36)
[2020-11-12 01:39] LABS: Glucose Point of Care 127 mg/dl (65-105)
[2020-11-12] MEDS: PROPOFOL IV EMULSION 100 ML 40.68 MG IV CONT ×5 (02:12→11:40)
[2020-11-12] MEDS: IPRATROPIUM BR 0.02% INH SOLN 0.5 MG/2.5 ML VIAL INHALATION ×4 (03:14→20:22)
[2020-11-12] MEDS: ALBUTEROL SULFATE NEB 2.5 MG/0.5 ML INH INHALATION ×4 (03:14→20:22)
[2020-11-12 03:27] LABS: Glucose Point of Care 102 mg/dl (65-105)
[2020-11-12 04:59] LABS: Glucose Point of Care 109 mg/dl (65-105)
[2020-11-12] MEDS: LEVOTHYROXINE SODIUM 75 MCG TABLET PO (05:02)
[2020-11-12] MEDS: AZTREONAM 2 GM in DEXTROSE 5% 100 ML 200 ML IVPB ×3 (05:02→20:59)
[2020-11-12] MEDS: ENOXAPARIN 40 MG/0.4 ML SYRINGE SUB-Q ×2 (05:02→17:21)
[2020-11-12] MEDS: CENTRAL LINE FLUSH 10 ML IV PUSH ×4 (05:02→21:00)
[2020-11-12] MEDS: methylPREDNISolone SOD SUCC 40 MG VIAL IV PUSH ×3 (05:02→17:21)
[2020-11-12 05:03] LABS: Hematocrit 39.1 % (37.0-47.0); Hemoglobin 11.9 g/dL (12.0-15.0); Mean Corpuscular HGB Conc 30.4 g/dl (32-36); Mean Corpuscular Hemoglobin 27.6 pg (26-34); Mean Corpuscular Volume 90.7 fl (80-100); Mean Platelet Volume 10.5 fl (7.4-10.4); Platelet Count Result 338 k/mm3 (150-375); Red Blood Count 4.31 M/mm3 (4.2-5.4); Red Cell Distribution Width 13.8 % (11.5-14.5)
[2020-11-12 05:17] LABS: Alanine Aminotransferase 37 U/L (4-35); Albumin Level 4.1 g/dL (3.5-5.1); Alkaline Phosphatase 66 U/L (38-126); Anion Gap 7 mmol/L (8-16); Aspartate Amino Transferase 67 U/L (14-36); Bilirubin,Total 0.4 mg/dL (0.2-1.3); Blood Urea Nitrogen 46 mg/dL (7-17); Carbon Dioxide 32 mmol/L (22-30); Chloride 98 mmol/L (98-107); Estimated Glomerular Filt Rate 53; Glucose 128 mg/dL (65-110); Magnesium 2.7 mg/dL (1.6-2.3); Phosphorus 5.3 mg/dL (2.5-4.5); Potassium 4.6 mmol/L (3.4-5.0); Sodium 137 mmol/L (137-145)
[2020-11-12 06:13] LABS: Alveolar/Arterial O2 Gradient 144.3 mmHg; Base Excess ABG 4.1 mEq/l (+/-2.0); Carboxyhemoglobin 0.3 % THb (0-2.0); Fractional Inspired Oxygen 40 %; Methemoglobin ABG 0.3 %THb (0-1.5); Modified Allen's Test Pass; Oxygen Content ABG 16.9 %vol (16.0-22.0); Oxygen Saturation ABG 94.3 % (95.0-100.0); Oxyhemoglobin 93.5 % THb (90.0-100.0); PCO2 ABG 56.9 mmHg (35.0-45.0); PO2 ABG 75.5 mmHg (80.0-100.0); PO2 FiO2 Ratio Arterial Blood 1.89 %; Reduced Hemoglobin 5.9 %THb (0-5.0); Site Drawn RIGHT RADIAL; Total Hemoglobin 12.8 g/dL (12.0-18.0); pH ABG 7.354 (7.350-7.450)
[2020-11-12 06:14] LABS: Arterial Blood Gas Vent Mode PRESSURE CONTROL; Arterial Blood Gas Ventilator rate 32 /MIN; Device VENTILATOR; Peak Inspiratory Pressure 32 cmH2O
[2020-11-12 06:15] LABS: Arterial Blood Gas PEEP 10 cmH2O
[2020-11-12 06:46] LABS: Glucose Point of Care 131 mg/dl (65-105)
[2020-11-12] MEDS: FENTANYL 2,500MCG/NS250ML(*CRX 2,500 MCG/250 ML BAG 20 MCG IV CONT ×2 (06:46→19:46)
--- NOTE | 2020-11-12 07:53 | PM.PNNEP ---
Progress Note: A&P Assessment and Plan (1) Acute kidney injury: Code(s): N17.9 - Acute kidney failure, unspecified Status: Acute Assessment and Plan: the patient has normal underlying kidneys. Creatinine peaked at 1.6 and is on its way down. urine electrolytes are non pre renal renal ultrasound is negative CK only minimally elevated most likely the patient has ATN due to infection and former hypotension. Now she is on antibiotics. Blood pressure is better. creatinine is 1.2 today. She has more swelling. Will increase diuretics (2) Shock: Code(s): R57.9 - Shock, unspecified Status: Acute Assessment and Plan: Resolved (3) Person under investigation for COVID-19: Code(s): Z20.822 - Contact with and (suspected) exposure to COVID-19 Status: Acute Assessment and Plan: She is on respiratory isolation. COVID test Negative (4) Acute respiratory failure with hypoxia: Code(s): J96.01 - Acute respiratory failure with hypoxia Status: Acute Assessment and Plan: she is on the ventilator (5) Obstructive sleep apnea: Code(s): G47.33 - Obstructive sleep apnea (adult) (pediatric) Status: Acute Assessment and Plan: on the ventilator now (6) Hypertension: Code(s): I10 - Essential (primary) hypertension Status: Acute Assessment and Plan: blood pressure is improved. now in the 130 to 150 range. still off antihypertensives. (7) Hypothyroidism: Code(s): E03.9 - Hypothyroidism, unspecified Status: Acute Assessment and Plan: on supplement (8) Type 2 diabetes mellitus: Code(s): E11.9 - Type 2 diabetes mellitus without complications Status: Acute Assessment and Plan: on Accu-Cheks and sliding-scale insulin Subjective Date/time seen: 11/12/20 07:53 Interval history: Patient is sedated and on the ventilator. hemodynamically stable Exam Narrative: WDWN Female on the ventilator and sedated skin no rash or sq nodules head ncat lungs coarse but no wheezing cor reg no rub or gallop abd BS+ nontender and soft ext 1+ presacral edema . Objective Data Vital Signs Vital Signs: Vital Signs - 24 hr 11/11/20 08:00 11/11/20 09:00 11/11/20 09:15 Temperature 36.3 C L Pulse Rate 71 70 69 Respiratory Rate 36 H 36 H 32 H Blood Pressure 170/98 H 154/77 H Pulse Oximetry 97 96 11/11/20 09:16 11/11/20 09:25 11/11/20 10:00 Temperature Pulse Rate 64 76 88 Respiratory Rate 32 H 32 H Blood Pressure 166/94 H Pulse Oximetry 96 97 11/11/20 11:00 11/11/20 11:06 11/11/20 12:00 Temperature 36.9 C Pulse Rate 73 74 79 Respiratory Rate 36 H 36 H Blood Pressure 152/77 H 160/90 H Pulse Oximetry 96 96 97 11/11/20 12:30 11/11/20 13:00 11/11/20 13:16 Temperature Pulse Rate 84 110 H 105 H Respiratory Rate 36 H 36 H 36 H Blood Pressure 158/80 H 180/101 H Pulse Oximetry 97 98 11/11/20 13:30 11/11/20 13:35 11/11/20 14:00 Temperature Pulse Rate 100 93 77 Respiratory Rate 36 H 32 H Blood Pressure 167/83 H 152/73 H Pulse Oximetry 97 95 11/11/20 14:42 11/11/20 14:44 11/11/20 14:55 Temperature Pulse Rate 83 89 88 Respiratory Rate 32 H 32 H Blood Pressure Pulse Oximetry 96 11/11/20 15:00 11/11/20 15:37 11/11/20 16:00 Temperature 36.9 C Pulse Rate 86 100 96 Respiratory Rate 36 H 38 H 36 H Blood Pressure 165/88 H 164/97 H Pulse Oximetry 96 96 11/11/20 17:32 11/11/20 18:00 11/11/20 18:17 Temperature Pulse Rate 90 89 91 Respiratory Rate 32 H 34 H Blood Pressure 142/74 H Pulse Oximetry 93 94 11/11/20 18:18 11/11/20 18:19 11/11/20 18:28 Temperature Pulse Rate 91 92 90 Respiratory Rate 34 H 35 H 33 H Blood Pressure Pulse Oximetry 11/11/20 19:09 11/11/20 19:10 11/11/20 19:50 Temperature Pulse Rate 77 77 88 Respiratory Rate 32 H 32 H Blood Pre
[2020-11-12] MEDS: BUDESONIDE RESPULE NEB 0.5 MG/2 ML AMP INHALATION ×2 (08:01→20:21)
[2020-11-12 08:46] LABS: Glucose Point of Care 121 mg/dl (65-105)
[2020-11-12] MEDS: INSULIN DETEMIR 100 UNITS/ML 90 UNITS SUB-Q ×2 (09:05→20:00)
[2020-11-12] MEDS: TOLNAFTATE 1% POWDER 45 GM BTL 1 APPLIC TOPICAL ×2 (09:08→20:03)
[2020-11-12] MEDS: PANTOPRAZOLE SODIUM IV 40 MG VIAL IV PUSH (09:09)
[2020-11-12] MEDS: MINERAL OIL/WHITE PETROLATUM OINTMENT 1 APPLIC EACH EYE ×2 (09:09→20:03)
[2020-11-12 09:23] LABS: Glucose Point of Care 133 mg/dl (65-105)
[2020-11-12 10:08] LABS: Glucose Point of Care 126 mg/dl (65-105)
[2020-11-12] MEDS: MIDAZOLAM 100MG/NS 100ML(*CRX) 100 MG/100 ML BAG 7 MG IV CONT (10:11)
--- NOTE | 2020-11-12 10:41 | WPDINTPN ---
Progress Note: A&P Assessment and Plan (1) Acute respiratory failure with hypoxemia: Code(s): J96.01 - Acute respiratory failure with hypoxia Status: Acute Assessment and Plan: Acute hypoxic respiratory failure, could be related to ARDS likely secondary to vaping (EVALI) versus community-acquired pneumonia -influenza a and B were negative, -SARS-CoV-2 PCR was negative -patient failed BiPAP due to tachypnea. Patient was intubated on 11/07/2020 at night -currently patient is on pressure control ventilation with rate set at 32, FiO2 is 40% peep is at 10 -decrease minute ventilation by decreasing rate 28. Patient is likely a chronic CO2 retainer -decrease PEEP to 8 -continue Lasix for diuresis as per Nephrology -patient is off Nimbex. Start weaning Versed infusion today s -chest x-ray and ABG reviewed. Withdraw ET tube by 2 cm -continue bronchodilators -continue pulmicort -continue Solu-Medrol taper over 10 days as recommended by by Pulmonary contract consultant (2) Shock: Code(s): R57.9 - Shock, unspecified Status: Acute Assessment and Plan: Leukocytosis along with bilateral infiltrates, possible pneumonia, hypersensitivity pneumonitis, ARDS, other source of infection -off of vasopressors this time -continue to maintain MAP > 65 mmHg -continue to monitor urine output, which has been adequate despite creatinine trending up -11/07: Blood cultures x2 negative so far, -11/08: Sputum Culture negative so far -continue aztreonam and vancomycin. DCed Levaquin 11/10 -pending procalcitonin. 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 EKG shows sinus tachycardia with no ST-T changes -troponins negative x4, -echocardiogram reviewed -likely pleuritic pain from inflammation (5) Diabetes mellitus: Qualifiers: Diabetes mellitus type: type 2 Diabetes mellitus watermaster insulin use: without detention use Diabetes mellitus complication status: with hyperglycemia Qualified Code(s): E11.65 - Type 2 diabetes mellitus with hyperglycemia Code(s): E11.9 - Type 2 diabetes mellitus without complications Status: Acute Assessment and Plan: Patient with history of diabetes and hyperglycemia -hemoglobin A1c this admission is 9.6 -patient on IV insulin infusion -continue Lantus but increase dose to 90 units subQ q.12 hours (6) Hypothyroid: Qualifiers: Hypothyroidism type: acquired Qualified Code(s): E03.9 - Hypothyroidism, unspecified Code(s): E03.9 - Hypothyroidism, unspecified Status: Acute Assessment and Plan: Will continue levothyroxine, switched to IV (7) Suspected COVID-19 virus infection: Code(s): Z20.822 - Contact with and (suspected) exposure to COVID-19 Status: Acute Assessment and Plan: Patient with upper acute hypoxic respiratory failure, denies any contacts or exposure with COVID patient -patient did receive a 2nd dose of Moderna COVID vaccine in September 2020 -SARS-CoV-2 PCR was negative (8) DVT prophylaxis: Code(s): Z29.9 - Encounter for prophylactic measures, unspecified Status: Acute Assessment and Plan: Given the body habitus on enoxaparin 40 mg SQ Q12H (9) Acute kidney injury: Code(s): N17.9 - Acute kidney failure, unspecified Status: Acute Assessment and Plan: Renal ultrasound was unrem
[2020-11-12 11:14] LABS: Glucose Point of Care 124 mg/dl (65-105)
[2020-11-12] MEDS: INSULIN HUMAN REGULAR (*BKC) 100 UNITS in SODIUM CHLORIDE 0.9% IV 99 ML 12.2 UNITS IV CONT (11:15)
--- NOTE | 2020-11-12 12:11 | PCDIET ---
ICU Rounding Note: Patient tolerating Glucerna 1.2 at 40mL/hr goal rate with 30mL water flush every 4 hours. Last recorded weight is 225.5kg which is down from last review. Bowel Motility: No BM documented. Discussed during rounds. Miralax continued. Labs Reviewed: Hgb (11.9), Glu (128), BUN (46), Cr (1.2), PO4 (5.3), Mg (2.7) Meds Noted: Albuterol, Nimbex, Synthroid, Versed, Aztreonam, Fentanyl, Lasix, Apresoline, Levemir, IV Insulin, Solu Medrol, Vancomycin, Protonix, Miralax, Propofol (rate of 40.68mL/hr provides 1073kcal per day) Additional Notes: No documented skin breakdown. Following daily in ICU rounds. Assessing/reassessing every Monday and Monday.
[2020-11-12 12:24] LABS: Glucose Point of Care 141 mg/dl (65-105)
[2020-11-12 13:11] LABS: Glucose Point of Care 151 mg/dl (65-105)
[2020-11-12 13:16] LABS: ANA Cascade Screen Negative (Negative)
[2020-11-12] MEDS: PROPOFOL IV EMULSION 100 ML 47.46 MG IV CONT ×6 (13:43→23:56)
--- NOTE | 2020-11-12 14:07 | PC.NURSE ---
On 11/12/20, the student, Keely LOZANO, provided care and completed [employer] documentation on this patient. I have reviewed the student's documentation and agree with the findings.
[2020-11-12 14:11] LABS: Glucose Point of Care 131 mg/dl (65-105)
[2020-11-12 15:40] LABS: Glucose Point of Care 138 mg/dl (65-105)
[2020-11-12 16:20] LABS: Glucose Point of Care 130 mg/dl (65-105)
[2020-11-12 17:27] LABS: Glucose Point of Care 141 mg/dl (65-105)
[2020-11-12] MEDS: INSULIN HUMAN REGULAR (*BKC) 100 UNITS in SODIUM CHLORIDE 0.9% IV 99 ML 19 UNITS IV CONT (18:05)
[2020-11-12 18:10] LABS: Glucose Point of Care 160 mg/dl (65-105)
[2020-11-12 19:50] LABS: Glucose Point of Care 151 mg/dl (65-105)
[2020-11-12] MEDS: FUROSEMIDE INJ 40 MG/4 ML VIAL IV PUSH (20:01)
[2020-11-12 20:02] LABS: Glucose Point of Care 145 mg/dl (65-105)
[2020-11-12 21:07] LABS: Glucose Point of Care 131 mg/dl (65-105)
[2020-11-12 21:52] LABS: Glucose Point of Care 120 mg/dl (65-105)
[2020-11-12 21:59] LABS: ANCA Screen Negative (Negative)
[2020-11-12 23:09] LABS: Glucose Point of Care 115 mg/dl (65-105)
[2020-11-13] VITALS (41 sets, daily range): BP systolic 117–167; BP diastolic 58–98; PULSE 68–99; RESP 14–30; TEMP 36.9–37.3; O2SAT 95–99
[2020-11-13 00:01] LABS: Glucose Point of Care 118 mg/dl (65-105)
[2020-11-13 01:01] LABS: Glucose Point of Care 100 mg/dl (65-105)
[2020-11-13] MEDS: INSULIN HUMAN REGULAR (*BKC) 100 UNITS in SODIUM CHLORIDE 0.9% IV 99 ML 7 UNITS IV CONT (01:58)
[2020-11-13] MEDS: PROPOFOL IV EMULSION 100 ML 47.46 MG IV CONT ×3 (02:07→06:32)
[2020-11-13] MEDS: ALBUTEROL SULFATE NEB 2.5 MG/0.5 ML INH INHALATION ×4 (02:22→19:59)
[2020-11-13] MEDS: IPRATROPIUM BR 0.02% INH SOLN 0.5 MG/2.5 ML VIAL INHALATION ×4 (02:23→19:59)
[2020-11-13 02:59] LABS: Glucose Point of Care 98 mg/dl (65-105)
[2020-11-13 02:59] LABS: Glucose Point of Care 99 mg/dl (65-105)
[2020-11-13 04:07] LABS: Glucose Point of Care 97 mg/dl (65-105)
[2020-11-13 04:47] LABS: Base Excess ABG 4.9 mEq/l (+/-2.0); Carboxyhemoglobin 0.3 % THb (0-2.0); Device VENTILATOR; Fractional Inspired Oxygen 40 %; HCO3 ABG 31.7 mEq/l (22.0-26.0); Methemoglobin ABG 0.4 %THb (0-1.5); Modified Allen's Test Unable to perform; Oxygen Content ABG 16.8 %vol (16.0-22.0); Oxygen Saturation ABG 94.7 % (95.0-100.0); Oxyhemoglobin 93.6 % THb (90.0-100.0); PCO2 ABG 56.9 mmHg (35.0-45.0); PO2 ABG 76.8 mmHg (80.0-100.0); PO2 FiO2 Ratio Arterial Blood 1.92 %; Reduced Hemoglobin 5.7 %THb (0-5.0); Site Drawn RIGHT RADIAL; Total Hemoglobin 12.7 g/dL (12.0-18.0); pH ABG 7.364 (7.350-7.450)
[2020-11-13 04:48] LABS: Arterial Blood Gas PEEP 8 cmH2O; Arterial Blood Gas Vent Mode PRESSURE CONTROL; Arterial Blood Gas Ventilator rate 28 /MIN; Peak Inspiratory Pressure 32 cmH2O
[2020-11-13] MEDS: AZTREONAM 2 GM in DEXTROSE 5% 100 ML 200 ML IVPB ×3 (04:59→21:19)
[2020-11-13 05:00] LABS: Glucose Point of Care 84 mg/dl (65-105)
[2020-11-13] MEDS: ENOXAPARIN 40 MG/0.4 ML SYRINGE SUB-Q ×2 (05:00→17:58)
[2020-11-13] MEDS: CENTRAL LINE FLUSH 10 ML IV PUSH ×4 (05:01→21:07)
[2020-11-13] MEDS: LEVOTHYROXINE SODIUM 75 MCG TABLET PO (05:01)
[2020-11-13 05:42] LABS: Potassium 4.6 mmol/L (3.4-5.0)
[2020-11-13 05:49] LABS: Albumin Level 3.9 g/dL (3.5-5.1); Anion Gap 5 mmol/L (8-16); Blood Urea Nitrogen 47 mg/dL (7-17); Calcium 9.1 mg/dL (8.4-10.2); Carbon Dioxide 35 mmol/L (22-30); Chloride 97 mmol/L (98-107); Estimated Glomerular Filt Rate 53; Glucose 101 mg/dL (65-110); Phosphorus 5.3 mg/dL (2.5-4.5); Sodium 137 mmol/L (137-145)
[2020-11-13 06:09] LABS: Glucose Point of Care 110 mg/dl (65-105)
[2020-11-13 07:00] LABS: Glucose Point of Care 127 mg/dl (65-105)
[2020-11-13] MEDS: BUDESONIDE RESPULE NEB 0.5 MG/2 ML AMP INHALATION ×2 (08:45→19:59)
--- NOTE | 2020-11-13 08:45 | WPDINTPN ---
Progress Note: A&P Assessment and Plan (1) Acute respiratory failure with hypoxemia: Code(s): J96.01 - Acute respiratory failure with hypoxia Status: Acute Assessment and Plan: Acute hypoxic respiratory failure, could be related to ARDS likely secondary to vaping (EVALI) versus community-acquired pneumonia -influenza a and B were negative, -SARS-CoV-2 PCR was negative -patient failed BiPAP due to tachypnea. Patient was intubated on 11/07/2020 at night -currently patient is on pressure control ventilation. Change rate to 25 and pressure control to 28. FiO2 is at 40% and peep is at 10 - Patient is likely a chronic CO2 retainer -patient was placed on pressure support of 5/8. Her RSBI and tidal volumes were adequate but patient appeared in respiratory distress with abdominal breathing. She noted affirmative to feeling short of breath at that time. Increase the pressure support to 20 but had no change on her tidal volume or respiratory rate. Will continue pressure support rate as tolerated for now off sedation. They may be an anxiety component and may benefit from Precedex infusion -continue Lasix for diuresis as per Nephrology -ABG reviewed. -continue bronchodilators -continue pulmicort -continue Solu-Medrol taper over 10 days as recommended by by Pulmonary customs consultant (2) Shock: Code(s): R57.9 - Shock, unspecified Status: Acute Assessment and Plan: Leukocytosis along with bilateral infiltrates, possible pneumonia, hypersensitivity pneumonitis, ARDS, other source of infection -off of vasopressors this time -continue to maintain MAP > 65 mmHg -continue to monitor urine output, which has been adequate despite creatinine trending up -11/07: Blood cultures x2 negative so far, -11/08: Sputum Culture negative so far -I feel continue aztreonam but discontinue vancomycin at this time since all cultures have been negative. 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 EKG shows sinus tachycardia with no ST-T changes -troponins negative x4, -echocardiogram reviewed -likely pleuritic pain from inflammation (5) Diabetes mellitus: Qualifiers: Diabetes mellitus type: type 2 Diabetes mellitus custodial insulin use: without exterminator helper use Diabetes mellitus complication status: with hyperglycemia Qualified Code(s): E11.65 - Type 2 diabetes mellitus with hyperglycemia Code(s): E11.9 - Type 2 diabetes mellitus without complications Status: Acute Assessment and Plan: Patient with history of diabetes and hyperglycemia -hemoglobin A1c this admission is 9.6 -patient off of IV insulin infusion at this time. Switched to sliding scale -patient currently on 90 units subQ q.12 hours. Holding Lantus at this point will cut down the dose to QHS (6) Hypothyroid: Qualifiers: Hypothyroidism type: acquired Qualified Code(s): E03.9 - Hypothyroidism, unspecified Code(s): E03.9 - Hypothyroidism, unspecified Status: Acute Assessment and Plan: Will continue levothyroxine, switched to IV (7) Suspected COVID-19 virus infection: Code(s): Z20.822 - Contact with and (suspected) exposure to COVID-19 Status: Acute Assessment and Plan: Patient with upper acute hypoxic respiratory failure, denies any contacts or exposure with COVID patient -
[2020-11-13 08:52] LABS: Glucose Point of Care 126 mg/dl (65-105)
[2020-11-13] MEDS: FUROSEMIDE INJ 40 MG/4 ML VIAL IV PUSH ×2 (08:54→21:07)
[2020-11-13] MEDS: PANTOPRAZOLE SODIUM IV 40 MG VIAL IV PUSH (08:55)
[2020-11-13] MEDS: TOLNAFTATE 1% POWDER 45 GM BTL 1 APPLIC TOPICAL ×2 (08:55→21:15)
[2020-11-13] MEDS: methylPREDNISolone SOD SUCC 40 MG VIAL IV PUSH ×2 (08:55→21:07)
--- NOTE | 2020-11-13 09:40 | PM.PNNEP ---
Progress Note: A&P Assessment and Plan (1) Acute kidney injury: Code(s): N17.9 - Acute kidney failure, unspecified Status: Acute Assessment and Plan: the patient has normal underlying kidneys. Creatinine peaked at 1.6 and is on its way down. Now 1.2. urine electrolytes are non pre renal renal ultrasound is negative CK only minimally elevated most likely the patient has ATN due to infection and former hypotension. Now she is on antibiotics. Blood pressure is better. On furosemide twice a day. She made a lot of urine overnight. (2) Shock: Code(s): R57.9 - Shock, unspecified Status: Acute Assessment and Plan: Resolved (3) Person under investigation for COVID-19: Code(s): Z20.822 - Contact with and (suspected) exposure to COVID-19 Status: Acute Assessment and Plan: She is on respiratory isolation. COVID test Negative (4) Acute respiratory failure with hypoxia: Code(s): J96.01 - Acute respiratory failure with hypoxia Status: Acute Assessment and Plan: she is on the ventilator (5) Obstructive sleep apnea: Code(s): G47.33 - Obstructive sleep apnea (adult) (pediatric) Status: Acute Assessment and Plan: on the ventilator now (6) Hypertension: Code(s): I10 - Essential (primary) hypertension Status: Acute Assessment and Plan: blood pressure is now high. still off antihypertensives. It is too early started Nazario inhibitor right now. I will add some amlodipine. (7) Hypothyroidism: Code(s): E03.9 - Hypothyroidism, unspecified Status: Acute Assessment and Plan: on supplement (8) Type 2 diabetes mellitus: Code(s): E11.9 - Type 2 diabetes mellitus without complications Status: Acute Assessment and Plan: on Accu-Cheks and sliding-scale insulin Subjective Date/time seen: 11/13/20 09:40 Interval history: Patient is on the ventilator. Off sedatives. On a weaning trial. Patient looks comfortable in bed. hemodynamically stable Exam Narrative: WDWN Female on the ventilator and sedated skin no rash head ncat lungs coarse but no wheezing cor reg no rub abd BS+ nontender and soft ext 1+ presacral edema . Objective Data Vital Signs Vital Signs: Vital Signs - 24 hr 11/12/20 10:00 11/12/20 10:11 11/12/20 10:15 Temperature Pulse Rate 90 92 90 Respiratory Rate 28 H 28 H 28 H Blood Pressure 127/63 Pulse Oximetry 95 11/12/20 11:04 11/12/20 12:00 11/12/20 13:43 Temperature 37.1 C Pulse Rate 109 H 132 H 115 H Respiratory Rate 28 H 29 H Blood Pressure 172/95 H Pulse Oximetry 93 98 11/12/20 13:52 11/12/20 13:55 11/12/20 14:00 Temperature Pulse Rate 114 H 114 H 110 H Respiratory Rate 31 H 29 H Blood Pressure 135/58 L Pulse Oximetry 94 93 11/12/20 14:02 11/12/20 15:50 11/12/20 16:00 Temperature 36.5 C Pulse Rate 114 H 105 H 100 Respiratory Rate 29 H 14 31 H Blood Pressure 131/71 Pulse Oximetry 96 11/12/20 16:02 11/12/20 16:50 11/12/20 17:05 Temperature Pulse Rate 105 H 104 H 102 H Respiratory Rate 14 30 H Blood Pressure Pulse Oximetry 96 11/12/20 17:24 11/12/20 18:00 11/12/20 18:01 Temperature Pulse Rate 100 95 96 Respiratory Rate 31 H 31 H 31 H Blood Pressure 124/68 Pulse Oximetry 96 11/12/20 19:16 11/12/20 19:46 11/12/20 19:56 Temperature Pulse Rate 96 96 94 Respiratory Rate 14 14 14 Blood Pressure Pulse Oximetry 11/12/20 19:57 11/12/20 20:00 11/12/20 20:15 Temperature 37.2 C Pulse Rate 94 93 97 Respiratory Rate 14 15 Blood Pressure 128/72 Pulse Oximetry 96 96 11/12/20 20:24 11/12/20 20:40 11/12/20 21:46 Temperature Pulse Rate 97 100 92 Respiratory Rate 28 H 28 H 28 H Blood Pressure Pulse Oximetry 11/12/20 22:00 11/12/20 23:10 11/12/20 23:56 Temperature Pulse Rate 88 92 96
[2020-11-13] MEDS: hydrALAZINE HCL 20 MG/ML VIAL IV PUSH (09:50)
[2020-11-13 10:08] LABS: Anti Cyclic Citrullinated Pept <16 Units (<20)
[2020-11-13] MEDS: dexmedeTOMIDine 400 MCG/100 ML 400 MCG/100 ML BAG 11.23 MCG IV CONT (10:16)
[2020-11-13] MEDS: PROPOFOL IV EMULSION 100 ML 40.43 MG IV CONT (10:32)
--- NOTE | 2020-11-13 10:43 | PM.IMPN ---
Progress Note: A&P Assessment and Plan (1) Acute respiratory failure with hypoxemia: Code(s): J96.01 - Acute respiratory failure with hypoxia Status: Acute Assessment and Plan: Acute hypoxic respiratory failure, could be related to ARDS likely secondary to vaping (EVALI) versus community-acquired pneumonia -influenza a and B were negative, -SARS-CoV-2 PCR was negative -patient failed BiPAP due to tachypnea. Patient was intubated on 11/07/2020 at night -currently patient is on pressure control ventilation. Change rate to 25 and pressure control to 28. FiO2 is at 40% and peep is at 10 - Patient is likely a chronic CO2 retainer -patient was placed on pressure support of 5/8. Her RSBI and tidal volumes were adequate but patient appeared in respiratory distress with abdominal breathing. Sfusion -continue Lasix for diuresis as per Nephrology -ABG reviewed. -continue bronchodilators -continue pulmicort -continue Solu-Medrol taper over 10 days as recommended by by Pulmonary food consultant (2) Shock: Code(s): R57.9 - Shock, unspecified Status: Acute Assessment and Plan: Leukocytosis along with bilateral infiltrates, possible pneumonia, hypersensitivity pneumonitis, ARDS, other source of infection -off of vasopressors this time -continue to monitor urine output, which has been adequate. -11/07: Blood cultures x2 negative so far, -11/08: Sputum Culture negative so far -I feel continue aztreonam but discontinue vancomycin at this time since all cultures have been negative. 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 EKG shows sinus tachycardia with no ST-T changes -troponins negative x4, -echocardiogram reviewed -likely pleuritic pain from inflammation (5) Diabetes mellitus: Qualifiers: Diabetes mellitus type: type 2 Diabetes mellitus terminal gauger supervisor insulin use: without terminal gauger supervisor use Diabetes mellitus complication status: with hyperglycemia Qualified Code(s): E11.65 - Type 2 diabetes mellitus with hyperglycemia Code(s): E11.9 - Type 2 diabetes mellitus without complications Status: Acute Assessment and Plan: Patient with history of diabetes and hyperglycemia -hemoglobin A1c this admission is 9.6 -patient off of IV insulin infusion at this time. Switched to sliding scale -patient currently on 90 units subQ QHS (6) Hypothyroid: Qualifiers: Hypothyroidism type: acquired Qualified Code(s): E03.9 - Hypothyroidism, unspecified Code(s): E03.9 - Hypothyroidism, unspecified Status: Acute Assessment and Plan: Supplement levothyroxine, switched to IV (7) DVT prophylaxis: Code(s): Z29.9 - Encounter for prophylactic measures, unspecified Status: Acute Assessment and Plan: Given the body habitus on enoxaparin 40 mg SQ Q12H (8) Acute kidney injury: Code(s): N17.9 - Acute kidney failure, unspecified Status: Acute Assessment and Plan: Renal ultrasound was unremarkable Creatinine is improving and electrolytes accept Nephrology is following Lasix for volume overload as per Nephrology (9) Hypertension: Code(s): I10 - Essential (primary) hypertension Status: Acute Assessment and Plan: Start amlodipine. Monitor BP. Subjective Date/time seen: 11/13/20 08:43 Interval histor
--- NOTE | 2020-11-13 11:12 | PCDIET ---
Nutrition Follow-Up Complete: Nutrition Diagnosis: Inadequate oral intake related to oral intubation as evidenced by NPO status. Nutrition Goal: Patient to meet estimated nutritional needs. Goal in progress. Tube feedings were held this morning for breathing trial. Tube feedings to resume, as no extubation planned. Previously tolerating Glucerna 1.2 at 40mL/hr goal rate with 30mL water flush every 4 hours. Last recorded weight is 224.6 kg which is down from last review and up slightly from admission. Bowel Motility: No documented BM as of yet. Patient has prn orders for Miralax and Dulcolax. Labs Reviewed: Glu (127), BUN (47), Cr (1.2) Meds Noted: Albuterol, Aztreonam, Pulmicort, Lasix, Protonix, Miralax, Dulcolax, Levemir, Atrovent, Synthroid, Solu Medrol, Versed, Vancomycin Additional Notes: No documented skin breakdown. Will continue to monitor with same goal. Nutrition Monitoring and Evaluation: Follow up every Monday/Monday.
[2020-11-13 13:01] LABS: Glucose Point of Care 196 mg/dl (65-105)
[2020-11-13] MEDS: PROPOFOL IV EMULSION 100 ML 33.69 MG IV CONT (13:04)
[2020-11-13] MEDS: PROPOFOL IV EMULSION 100 ML 26.95 MG IV CONT ×2 (16:08→19:50)
[2020-11-13] MEDS: dexmedeTOMIDine 400 MCG/100 ML 400 MCG/100 ML BAG 16.85 MCG IV CONT (16:10)
[2020-11-13 17:20] LABS: Glucose Point of Care 238 mg/dl (65-105)
[2020-11-13] MEDS: INSULIN ASPART (*BKC) 100 UNITS/ML SUB-Q ×2 (17:25→21:12)
[2020-11-13] MEDS: dexmedeTOMIDine 400 MCG/100 ML 400 MCG/100 ML BAG 33.69 MCG IV CONT ×2 (19:48→23:21)
[2020-11-13] MEDS: MINERAL OIL/WHITE PETROLATUM OINTMENT 1 APPLIC EACH EYE (21:07)
[2020-11-13] MEDS: INSULIN DETEMIR 100 UNITS/ML 90 UNITS SUB-Q (21:10)
[2020-11-13 21:26] LABS: Glucose Point of Care 234 mg/dl (65-105)
--- NOTE | 2020-11-13 23:38 | PC.NURSE ---
patient moved to room ICU 3 due to lift in ICU6 being nonfunctional.
[2020-11-14] VITALS (44 sets, daily range): BP systolic 120–158; BP diastolic 65–88; PULSE 61–103; RESP 12–29; TEMP 36.9–37.8; O2SAT 93–99
[2020-11-14 00:02] LABS: Chloride Rand Ur 82 mmol/L (32-290); Chloride/Creatinine Rand Ur 128 (38-318); Creatinine Random Urine 64 mg/dL (20-275)
[2020-11-14] MEDS: PROPOFOL IV EMULSION 100 ML 13.48 MG IV CONT (00:24)
[2020-11-14] MEDS: INSULIN ASPART (*BKC) 100 UNITS/ML SUB-Q ×6 (00:29→21:15)
[2020-11-14 01:33] LABS: Glucose Point of Care 286 mg/dl (65-105)
[2020-11-14] MEDS: ALBUTEROL SULFATE NEB 2.5 MG/0.5 ML INH INHALATION ×4 (02:09→20:13)
[2020-11-14] MEDS: IPRATROPIUM BR 0.02% INH SOLN 0.5 MG/2.5 ML VIAL INHALATION ×4 (02:10→20:13)
[2020-11-14] MEDS: dexmedeTOMIDine 400 MCG/100 ML 400 MCG/100 ML BAG 33.69 MCG IV CONT (02:22)
[2020-11-14 04:28] LABS: Glucose Point of Care 278 mg/dl (65-105)
[2020-11-14 04:36] LABS: Hematocrit 38.4 % (37.0-47.0); Hemoglobin 11.9 g/dL (12.0-15.0); Mean Corpuscular Hemoglobin 27.6 pg (26-34); Mean Corpuscular Volume 89.1 fl (80-100); Mean Platelet Volume 10.4 fl (7.4-10.4); Platelet Count Result 306 k/mm3 (150-375); Red Blood Count 4.31 M/mm3 (4.2-5.4); Red Cell Distribution Width 13.2 % (11.5-14.5); White Blood Count 9.4 K/mm3 (4.5-10.0)
[2020-11-14 04:46] LABS: Alanine Aminotransferase 54 U/L (4-35); Albumin Level 4.1 g/dL (3.5-5.1); Alkaline Phosphatase 66 U/L (38-126); Anion Gap 5 mmol/L (8-16); Aspartate Amino Transferase 42 U/L (14-36); Bilirubin,Total 0.3 mg/dL (0.2-1.3); Blood Urea Nitrogen 52 mg/dL (7-17); Calcium 9.4 mg/dL (8.4-10.2); Carbon Dioxide 39 mmol/L (22-30); Chloride 90 mmol/L (98-107); Estimated Glomerular Filt Rate 53; Glucose 299 mg/dL (65-110); Magnesium 2.4 mg/dL (1.6-2.3); Phosphorus 4.9 mg/dL (2.5-4.5); Potassium 5.3 mmol/L (3.4-5.0); Sodium 134 mmol/L (137-145)
[2020-11-14 05:10] LABS: Alveolar/Arterial O2 Gradient 104.9 mmHg; Carboxyhemoglobin 0.3 % THb (0-2.0); Fractional Inspired Oxygen 40 %; HCO3 ABG 34.4 mEq/l (22.0-26.0); Methemoglobin ABG 0.4 %THb (0-1.5); Oxygen Content ABG 17.9 %vol (16.0-22.0); Oxygen Saturation ABG 98.5 % (95.0-100.0); Oxyhemoglobin 97.1 % THb (90.0-100.0); PCO2 ABG 50.7 mmHg (35.0-45.0); PO2 FiO2 Ratio Arterial Blood 3.05 %; Reduced Hemoglobin 2.2 %THb (0-5.0)
[2020-11-14 05:11] LABS: Arterial Blood Gas Vent Mode PRESSURE CONTROL; Arterial Blood Gas Ventilator rate 25 /MIN; Device VENTILATOR; Modified Allen's Test Pass; Site Drawn LEFT RADIAL
[2020-11-14 05:12] LABS: Arterial Blood Gas PEEP 8 cmH2O; Arterial Blood Gas Pressure Support 28 cmH2O
[2020-11-14] MEDS: dexmedeTOMIDine 400 MCG/100 ML 400 MCG/100 ML BAG 28.08 MCG IV CONT (05:42)
[2020-11-14] MEDS: ENOXAPARIN 40 MG/0.4 ML SYRINGE SUB-Q ×2 (05:43→18:07)
[2020-11-14] MEDS: CENTRAL LINE FLUSH 10 ML IV PUSH ×4 (05:45→21:13)
[2020-11-14] MEDS: LEVOTHYROXINE SODIUM 75 MCG TABLET PO (05:45)
[2020-11-14] MEDS: AZTREONAM 2 GM in DEXTROSE 5% 100 ML 200 ML IVPB ×2 (05:54→14:38)
--- NOTE | 2020-11-14 07:53 | PM.IMPN ---
Progress Note: A&P Assessment and Plan (1) Acute respiratory failure with hypoxemia: Code(s): J96.01 - Acute respiratory failure with hypoxia Status: Acute Assessment and Plan: Acute hypoxic respiratory failure, could be related to ARDS likely secondary to vaping (EVALI) versus community-acquired pneumonia -influenza a and B were negative, -SARS-CoV-2 PCR was negative -patient failed BiPAP due to tachypnea. Patient was intubated on 11/07/2020 at night -currently patient is on pressure control ventilation. Currently patient is on pressure control ventilation. Change rate to 22 and pressure control to 25. FiO2 is at 40% and peep is at 8 - Patient is likely a chronic CO2 retainer -patient was placed on pressure support of 5/8. Her RSBI and tidal volumes were adequate but patient appeared in respiratory distress with abdominal breathing. -continue Lasix for diuresis as per Nephrology -ABG reviewed. -continue bronchodilators -continue pulmicort -continue Solu-Medrol taper over 10 days. (2) Shock: Code(s): R57.9 - Shock, unspecified Status: Acute Assessment and Plan: Leukocytosis along with bilateral infiltrates, possible pneumonia, hypersensitivity pneumonitis, ARDS, other source of infection -off of vasopressors this time -Mild fever -continue to monitor urine output, which has been adequate. -11/07: Blood cultures x2 negative so far, -11/08: Sputum Culture negative so far -Continue aztreonam but discontinue vancomycin at this time since all cultures have been negative. 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 EKG shows sinus tachycardia with no ST-T changes -troponins negative x4, -echocardiogram reviewed -likely pleuritic pain from inflammation (5) Diabetes mellitus: Qualifiers: Diabetes mellitus complication status: with hyperglycemia Diabetes mellitus alf insulin use: without ferry terminal agent use Diabetes mellitus type: type 2 Qualified Code(s): E11.65 - Type 2 diabetes mellitus with hyperglycemia Code(s): E11.9 - Type 2 diabetes mellitus without complications Status: Acute Assessment and Plan: Patient with history of diabetes and hyperglycemia -hemoglobin A1c this admission is 9.6 -patient off of IV insulin infusion at this time. Switched to sliding scale -patient currently on 90 units subQ QHS (6) Hypothyroid: Qualifiers: Hypothyroidism type: acquired Qualified Code(s): E03.9 - Hypothyroidism, unspecified Code(s): E03.9 - Hypothyroidism, unspecified Status: Acute Assessment and Plan: Supplement levothyroxine, switched to IV (7) DVT prophylaxis: Code(s): Z29.9 - Encounter for prophylactic measures, unspecified Status: Acute Assessment and Plan: Given the body habitus on enoxaparin 40 mg SQ Q12H (8) Acute kidney injury: Code(s): N17.9 - Acute kidney failure, unspecified Status: Acute Assessment and Plan: Renal ultrasound was unremarkable Creatinine is improving and electrolytes accept Nephrology is following Lasix for volume overload as per Nephrology (9) Hypertension: Code(s): I10 - Essential (primary) hypertension Status: Acute Assessment and Plan: Continue amlodipine. Monitor BP. (10) Fever: Code(s): R50.9 - Fever, unspecified Status: Acute Assessment and Plan: Send pancultures. Subjective Date/time seen: 11/14/20 07:53 Interval his
[2020-11-14] MEDS: SODIUM POLYSTYRENE SULFONONATE 15 GM/60 ML BTL 30 GM FEED TUBE (08:24)
[2020-11-14] MEDS: INSULIN GLARGINE (*BKC) 100 UNITS/ML 25 UNITS SUB-Q (08:34)
[2020-11-14] MEDS: TOLNAFTATE 1% POWDER 45 GM BTL 1 APPLIC TOPICAL ×2 (08:37→21:12)
[2020-11-14] MEDS: PANTOPRAZOLE SODIUM IV 40 MG VIAL IV PUSH (08:38)
[2020-11-14] MEDS: methylPREDNISolone SOD SUCC 40 MG VIAL IV PUSH ×2 (08:41→21:12)
[2020-11-14] MEDS: amLODIPine BESYLATE 5 MG TABLET PO (08:42)
[2020-11-14] MEDS: MINERAL OIL/WHITE PETROLATUM OINTMENT 1 APPLIC EACH EYE ×2 (08:42→21:12)
[2020-11-14 08:55] LABS: Glucose Point of Care 222 mg/dl (65-105)
[2020-11-14] MEDS: BUDESONIDE RESPULE NEB 0.5 MG/2 ML AMP INHALATION ×2 (08:59→20:13)
[2020-11-14] MEDS: dexmedeTOMIDine 400 MCG/100 ML 400 MCG/100 ML BAG 22.46 MCG IV CONT ×2 (09:15→21:09)
--- NOTE | 2020-11-14 09:29 | WPDINTPN ---
Progress Note: A&P Assessment and Plan (1) Acute respiratory failure with hypoxemia: Code(s): J96.01 - Acute respiratory failure with hypoxia Status: Acute Assessment and Plan: Acute hypoxic respiratory failure, could be related to ARDS likely secondary to vaping (EVALI) versus community-acquired pneumonia -influenza a and B were negative, -SARS-CoV-2 PCR was negative -patient failed BiPAP due to tachypnea. Patient was intubated on 11/07/2020 at night -currently patient is on pressure control ventilation. Change rate to 22 and pressure control to 25. FiO2 is at 40% and peep is at 8 - Patient is likely a chronic CO2 retainer -patient was placed on pressure support of 5/8. Her RSBI and tidal volumes were adequate but patient appeared in respiratory distress with abdominal breathing. She noded affirmative to feeling short of breath at that time. Increase the pressure support to 20 but had no change on her tidal volume or respiratory rate. She was continued on pressure support of 20 for few hours. Patient has been started on Precedex to rule out any anxiety component and will try pressure support ventilation again today this morning -continue Lasix for diuresis as per Nephrology -ABG reviewed. -continue bronchodilators -continue pulmicort -continue Solu-Medrol taper over 10 days as recommended by by Pulmonary application development consultant (2) Shock: Code(s): R57.9 - Shock, unspecified Status: Acute Assessment and Plan: Leukocytosis along with bilateral infiltrates, possible pneumonia, hypersensitivity pneumonitis, ARDS, other source of infection -off of vasopressors this time -continue to maintain MAP > 65 mmHg -continue to monitor urine output, which has been adequate despite creatinine trending up -11/07: Blood cultures x2 negative so far, -11/08: Sputum Culture negative so far -I feel continue aztreonam but discontinued vancomycin 11/13 since all cultures have been negative. 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 EKG shows sinus tachycardia with no ST-T changes -troponins negative x4, -echocardiogram reviewed -likely pleuritic pain from inflammation (5) Diabetes mellitus: Qualifiers: Diabetes mellitus type: type 2 Diabetes mellitus care home insulin use: without care home use Diabetes mellitus complication status: with hyperglycemia Qualified Code(s): E11.65 - Type 2 diabetes mellitus with hyperglycemia Code(s): E11.9 - Type 2 diabetes mellitus without complications Status: Acute Assessment and Plan: Patient with history of diabetes and hyperglycemia -hemoglobin A1c this admission is 9.6 -patient off of IV insulin infusion at this time. Switched to sliding scale q.4 hours -patient currently on 90 units subQ q.12 hours. Add a.m. Lantus of 25 units (6) Hypothyroid: Qualifiers: Hypothyroidism type: acquired Qualified Code(s): E03.9 - Hypothyroidism, unspecified Code(s): E03.9 - Hypothyroidism, unspecified Status: Acute Assessment and Plan: Will continue levothyroxine, switched to IV (7) Suspected COVID-19 virus infection: Code(s): Z20.822 - Contact with and (suspected) exposure to COVID-19 Status: Acute Assessment and Plan: Patient with upper acute hypoxic respiratory failure, denies any contacts or exp
[2020-11-14 10:26] LABS: Alveolar/Arterial O2 Gradient 151.8 mmHg; Base Excess ABG 7.5 mEq/l (+/-2.0); Fractional Inspired Oxygen 40 %; HCO3 ABG 33.1 mEq/l (22.0-26.0); Oxygen Content ABG 17.4 %vol (16.0-22.0); Oxygen Saturation ABG 95.3 % (95.0-100.0); Oxyhemoglobin 93.8 % THb (90.0-100.0); PCO2 ABG 50.6 mmHg (35.0-45.0); PO2 ABG 75.2 mmHg (80.0-100.0); PO2 FiO2 Ratio Arterial Blood 1.88 %; Total Hemoglobin 13.2 g/dL (12.0-18.0); pH ABG 7.434 (7.350-7.450)
[2020-11-14 10:35] LABS: Site Drawn RIGHT RADIAL
[2020-11-14 10:38] LABS: Arterial Blood Gas PEEP 5 cmH2O; Arterial Blood Gas Pressure Support 5 cmH2O; Arterial Blood Gas Vent Mode SPONTANEOUS; Device VENTILATOR; Modified Allen's Test Pass
[2020-11-14] MEDS: hydrALAZINE HCL 20 MG/ML VIAL IV PUSH (11:21)
[2020-11-14 12:17] LABS: Glucose Point of Care 237 mg/dl (65-105)
--- NOTE | 2020-11-14 14:30 | PM.PNNEP ---
Progress Note: A&P Assessment and Plan (1) Acute kidney injury: Code(s): N17.9 - Acute kidney failure, unspecified Status: Acute Assessment and Plan: the patient has normal underlying kidneys. Creatinine peaked at 1.6. urine electrolytes are non pre renal renal ultrasound is negative CK only minimally elevated most likely the patient has ATN due to infection and former hypotension. Now she is on antibiotics. Blood pressure is better. she was on furosemide yesterday and had [id number] of urine. Now furosemide has been held. Surprisingly her potassium is high. Creatinine is stable. Bicarbonate level is a little bit high. If we resume diuretics then we should probably add acetazolamide (2) Shock: Code(s): R57.9 - Shock, unspecified Status: Acute Assessment and Plan: Resolved (3) Person under investigation for COVID-19: Code(s): Z20.822 - Contact with and (suspected) exposure to COVID-19 Status: Acute Assessment and Plan: She is on respiratory isolation. COVID test Negative (4) Acute respiratory failure with hypoxia: Code(s): J96.01 - Acute respiratory failure with hypoxia Status: Acute Assessment and Plan: she is on the ventilator (5) Obstructive sleep apnea: Code(s): G47.33 - Obstructive sleep apnea (adult) (pediatric) Status: Acute Assessment and Plan: on the ventilator now (6) Hypertension: Code(s): I10 - Essential (primary) hypertension Status: Acute Assessment and Plan: blood pressure is now high. still off antihypertensives. It is too early started Nazario inhibitor right now. On amlodipine 5 (7) Hypothyroidism: Code(s): E03.9 - Hypothyroidism, unspecified Status: Acute Assessment and Plan: on supplement (8) Type 2 diabetes mellitus: Code(s): E11.9 - Type 2 diabetes mellitus without complications Status: Acute Assessment and Plan: on Accu-Cheks and sliding-scale insulin Subjective Date/time seen: 11/14/20 14:30 Interval history: Patient is on the ventilator. Off Propofol. On Precedex. Had a weaning trial today but did not do very well. Patient looks comfortable in bed. hemodynamically stable Exam Narrative: WDWN Female on the ventilator and sedated skin no rash head ncat lungs coarse but no wheezing cor reg no rub or gallop abd BS+ nontender and soft ext 1+ presacral edema . Objective Data Vital Signs Vital Signs: Vital Signs - 24 hr 11/13/20 14:40 11/13/20 15:25 11/13/20 16:00 Temperature 36.9 C Pulse Rate 88 91 75 Respiratory Rate 26 H 22 H Blood Pressure 122/65 Pulse Oximetry 97 95 11/13/20 16:08 11/13/20 16:10 11/13/20 18:00 Temperature Pulse Rate 78 78 69 Respiratory Rate 24 H 24 H 22 H Blood Pressure 123/65 Pulse Oximetry 97 11/13/20 18:02 11/13/20 19:48 11/13/20 19:50 Temperature Pulse Rate 70 68 68 Respiratory Rate 26 H 26 H 27 H Blood Pressure Pulse Oximetry 11/13/20 20:00 11/13/20 20:02 11/13/20 20:03 Temperature 37.0 C Pulse Rate 68 69 69 Respiratory Rate 30 H 28 H Blood Pressure 126/69 Pulse Oximetry 97 96 11/13/20 20:22 11/13/20 21:03 11/13/20 22:36 Temperature Pulse Rate 71 79 71 Respiratory Rate 26 H 30 H 25 H Blood Pressure 121/61 Pulse Oximetry 95 11/13/20 23:21 11/14/20 00:00 11/14/20 00:23 Temperature 37.7 C H Pulse Rate 69 68 69 Respiratory Rate 28 H 27 H 27 H Blood Pressure 146/81 H Pulse Oximetry 96 11/14/20 00:24 11/14/20 02:11 11/14/20 02:12 Temperature Pulse Rate 69 68 68 Respiratory Rate 27 H 27 H Blood Pressure Pulse Oximetry 96 11/14/20 02:20 11/14/20 02:21 11/14/20 02:22 Temperature Pulse Rate 70 70 70 Respiratory Rate 25 H 25 H 25 H Blood Pressure Pulse Oximetry 11/14/20 02:28 11/14/20 04:30 11/14/20 04:35 Temp
[2020-11-14] MEDS: LABETALOL HCL INJ 100 MG/20 ML VIAL 20 MG IV PUSH (14:48)
[2020-11-14 15:05] LABS: Add Urine Microscopic? YES; Appearance Urine Cloudy (Clear); Bacteria Urine Trace /hpf; Bilirubin Urine Negative (Negative); Blood Urine 1+ (Negative); Budding Yeast Urine Present /hpf; Color Urine Yellow (Yellow); Glucose Urine UA 1+ mg/dL (Negative); Ketones Urine Negative (Negative); Leukocyte Esterase Ur 3+ LEU/UL (NEGATIVE); Mucus Urine Rare /lpf; Nitrate Urine Negative (Negative); Protein Urine Negative (Negative); RBC Urine >75 /hpf (0-2); Specific Grav Ur 1.017 (1.001-1.035); Squamous Epithelial Cell Urine Occasional /hpf (Few); WBC Urine 51-75 /hpf (0-3)
[2020-11-14 15:49] LABS: Glucose Point of Care 224 mg/dl (65-105)
[2020-11-14] MEDS: dexmedeTOMIDine 400 MCG/100 ML 400 MCG/100 ML BAG 16.85 MCG IV CONT (16:19)
[2020-11-14] MEDS: INSULIN DETEMIR 100 UNITS/ML 90 UNITS SUB-Q (21:16)
[2020-11-14 21:32] LABS: Glucose Point of Care 216 mg/dl (65-105)
[2020-11-15] VITALS (35 sets, daily range): BP systolic 131–194; BP diastolic 69–102; PULSE 59–103; RESP 12–29; TEMP 36.6–37; O2SAT 90–99
[2020-11-15 00:29] LABS: Glucose Point of Care 253 mg/dl (65-105)
[2020-11-15] MEDS: AZTREONAM 2 GM in DEXTROSE 5% 100 ML 200 ML IVPB ×4 (00:31→23:41)
[2020-11-15] MEDS: dexmedeTOMIDine 400 MCG/100 ML 400 MCG/100 ML BAG 22.46 MCG IV CONT ×2 (00:33→05:58)
[2020-11-15] MEDS: INSULIN ASPART (*BKC) 100 UNITS/ML SUB-Q ×2 (00:34→06:05)
[2020-11-15] MEDS: ALBUTEROL SULFATE NEB 2.5 MG/0.5 ML INH INHALATION ×4 (02:53→20:27)
[2020-11-15] MEDS: IPRATROPIUM BR 0.02% INH SOLN 0.5 MG/2.5 ML VIAL INHALATION ×4 (02:53→20:27)
[2020-11-15 04:52] LABS: Glucose Point of Care 225 mg/dl (65-105)
[2020-11-15 04:56] LABS: Alveolar/Arterial O2 Gradient 95.9 mmHg; Carboxyhemoglobin 0.1 % THb (0-2.0); Fractional Inspired Oxygen 30 %; HCO3 ABG 34.8 mEq/l (22.0-26.0); Methemoglobin ABG 0.3 %THb (0-1.5); Oxygen Saturation ABG 95.2 % (95.0-100.0); Oxyhemoglobin 93.6 % THb (90.0-100.0); PCO2 ABG 42.6 mmHg (35.0-45.0); PO2 ABG 67.9 mmHg (80.0-100.0); PO2 FiO2 Ratio Arterial Blood 2.26 %; Total Hemoglobin 12.9 g/dL (12.0-18.0)
[2020-11-15 05:01] LABS: Modified Allen's Test Pass; Site Drawn RIGHT RADIAL
[2020-11-15 05:02] LABS: Device VENTILATOR
[2020-11-15 05:03] LABS: Arterial Blood Gas Vent Mode PRESSURE CONTROL; Arterial Blood Gas Ventilator rate 22 /MIN; Peak Inspiratory Pressure 25 cmH2O
[2020-11-15 05:04] LABS: Arterial Blood Gas PEEP 8 cmH2O
[2020-11-15 05:10] LABS: Hematocrit 38.2 % (37.0-47.0); Mean Corpuscular HGB Conc 31.4 g/dl (32-36); Mean Corpuscular Hemoglobin 27.5 pg (26-34); Mean Corpuscular Volume 87.6 fl (80-100); Mean Platelet Volume 10.7 fl (7.4-10.4); Platelet Count Result 286 k/mm3 (150-375); Red Blood Count 4.36 M/mm3 (4.2-5.4); Red Cell Distribution Width 13.2 % (11.5-14.5); White Blood Count 11.4 K/mm3 (4.5-10.0)
[2020-11-15 05:31] LABS: Alanine Aminotransferase 39 U/L (4-35); Albumin Level 3.7 g/dL (3.5-5.1); Alkaline Phosphatase 71 U/L (38-126); Anion Gap 3 mmol/L (8-16); Aspartate Amino Transferase 32 U/L (14-36); Bilirubin,Total 0.5 mg/dL (0.2-1.3); Blood Urea Nitrogen 41 mg/dL (7-17); Carbon Dioxide 38 mmol/L (22-30); Chloride 90 mmol/L (98-107); Estimated Glomerular Filt Rate > 60; Glucose 318 mg/dL (65-110); Magnesium 2.1 mg/dL (1.6-2.3); Phosphorus 3.6 mg/dL (2.5-4.5); Potassium 4.2 mmol/L (3.4-5.0); Sodium 131 mmol/L (137-145)
[2020-11-15] MEDS: ENOXAPARIN 40 MG/0.4 ML SYRINGE SUB-Q (05:56)
[2020-11-15] MEDS: LEVOTHYROXINE SODIUM 75 MCG TABLET PO (05:57)
[2020-11-15] MEDS: CENTRAL LINE FLUSH 10 ML IV PUSH ×3 (05:57→20:09)
[2020-11-15] MEDS: BUDESONIDE RESPULE NEB 0.5 MG/2 ML AMP INHALATION ×2 (07:59→20:27)
[2020-11-15] MEDS: methylPREDNISolone SOD SUCC 40 MG VIAL IV PUSH ×2 (08:08→20:08)
[2020-11-15] MEDS: INSULIN GLARGINE (*BKC) 100 UNITS/ML 25 UNITS SUB-Q (08:08)
[2020-11-15] MEDS: MINERAL OIL/WHITE PETROLATUM OINTMENT 1 APPLIC EACH EYE (08:08)
[2020-11-15] MEDS: PANTOPRAZOLE SODIUM IV 40 MG VIAL IV PUSH (08:08)
[2020-11-15] MEDS: TOLNAFTATE 1% POWDER 45 GM BTL 1 APPLIC TOPICAL ×2 (08:09→20:08)
[2020-11-15] MEDS: amLODIPine BESYLATE 5 MG TABLET PO (08:09)
[2020-11-15] MEDS: FUROSEMIDE INJ 40 MG/4 ML VIAL IV PUSH (08:19)
[2020-11-15 08:21] LABS: Glucose Point of Care 195 mg/dl (65-105)
--- NOTE | 2020-11-15 09:10 | WPDINTPN ---
Progress Note: A&P Assessment and Plan (1) Acute respiratory failure with hypoxemia: Code(s): J96.01 - Acute respiratory failure with hypoxia Status: Acute Assessment and Plan: Acute hypoxic respiratory failure, could be related to ARDS likely secondary to vaping (EVALI) versus community-acquired pneumonia -influenza a and B were negative, -SARS-CoV-2 PCR was negative -patient failed BiPAP due to tachypnea. Patient was intubated on 11/07/2020 at night -currently patient is on pressure control ventilation. Change rate to 22 and pressure control to 25. FiO2 is at 40% and peep is at 8 - Patient is likely a chronic CO2 retainer patient has failed pressure support trials over last couple of days and has tolerated higher pressure support for multiple hours daily. her RSBI is adequate but patient appears in respiratory distress with increase in blood pressure and her face turns completely red with increased work of breathing. - today will try again and patient has been placed on pressure support ventilation trial this morning. -continue Lasix for diuresis -ABG reviewed. -continue bronchodilators -continue pulmicort -continue Solu-Medrol taper over 10 days as recommended by by Pulmonary tax credit leasing consultant (2) Shock: Code(s): R57.9 - Shock, unspecified Status: Acute Assessment and Plan: Leukocytosis along with bilateral infiltrates, possible pneumonia, hypersensitivity pneumonitis, ARDS, other source of infection -off of vasopressors this time -continue to maintain MAP > 65 mmHg -continue to monitor urine output, which has been adequate despite creatinine trending up -11/07: Blood cultures x2 negative so far, -11/08: Sputum Culture negative so far -I feel continue aztreonam but discontinued vancomycin 11/13 since all cultures have been negative. 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 Switched to sliding scale q.4 hours -patient currently on 90 units subQ q.h.s. hours. Add a.m. Lantus of 25 units will increase Lantus if unable to extubate (6) Hypothyroid: Qualifiers: Hypothyroidism type: acquired Qualified Code(s): E03.9 - Hypothyroidism, unspecified Code(s): E03.9 - Hypothyroidism, unspecified Status: Acute Assessment and Plan: Will continue levothyroxine, switched to IV (7) Acute kidney injury: Code(s): N17.9 - Acute kidney failure, unspecified Status: Acute Assessment and Plan: Renal ultrasound was unremarkable Creatinine has improved to baseline and electrolytes acceptable Nephrology has signed off continue cautious diuresis patient was given a dose of Kayexala
--- NOTE | 2020-11-15 09:44 | PM.PNNEP ---
Progress Note: A&P Assessment and Plan (1) Acute kidney injury: Code(s): N17.9 - Acute kidney failure, unspecified Status: Acute Assessment and Plan: the patient has normal underlying kidneys. Creatinine peaked at 1.6. Now down to 0.8. urine electrolytes are non pre renal renal ultrasound is negative CK only minimally elevated most likely the patient has ATN due to infection and former hypotension. Making lots of urine. Creatinine is down to normal. Renal will sign off. (2) Shock: Code(s): R57.9 - Shock, unspecified Status: Acute Assessment and Plan: Resolved (3) Person under investigation for COVID-19: Code(s): Z20.822 - Contact with and (suspected) exposure to COVID-19 Status: Acute Assessment and Plan: She is on respiratory isolation. COVID test negative (4) Acute respiratory failure with hypoxia: Code(s): J96.01 - Acute respiratory failure with hypoxia Status: Acute Assessment and Plan: she is on the ventilator (5) Obstructive sleep apnea: Code(s): G47.33 - Obstructive sleep apnea (adult) (pediatric) Status: Acute Assessment and Plan: on the ventilator now (6) Hypertension: Code(s): I10 - Essential (primary) hypertension Status: Acute Assessment and Plan: blood pressure is good today. (7) Hypothyroidism: Code(s): E03.9 - Hypothyroidism, unspecified Status: Acute Assessment and Plan: on supplement (8) Type 2 diabetes mellitus: Code(s): E11.9 - Type 2 diabetes mellitus without complications Status: Acute Assessment and Plan: on Accu-Cheks and sliding-scale insulin Subjective Date/time seen: 11/15/20 09:44 Interval history: Patient is comfortable on the ventilator. on Propofol. On Precedex. hemodynamically stable Exam Narrative: WDWN Female on the ventilator . Eyes open and seems to regard the examiner. skin no rash head ncat lungs coarse cor reg no rub or gallop abd BS+ nontender and soft ext 1+ presacral edema . Objective Data Vital Signs Vital Signs: Vital Signs - 24 hr 11/14/20 10:00 11/14/20 10:04 11/14/20 10:15 Temperature 37.7 C H Pulse Rate 77 83 84 Respiratory Rate 19 19 Blood Pressure 141/75 H Pulse Oximetry 95 95 11/14/20 11:15 11/14/20 11:58 11/14/20 12:00 Temperature 37.8 C H Pulse Rate 98 103 H 91 Respiratory Rate 24 H 26 H Blood Pressure 158/88 H Pulse Oximetry 96 95 11/14/20 13:15 11/14/20 14:00 11/14/20 14:45 Temperature 37.8 C H Pulse Rate 89 86 84 Respiratory Rate 12 18 24 H Blood Pressure 152/84 H Pulse Oximetry 95 97 11/14/20 14:48 11/14/20 15:00 11/14/20 15:51 Temperature Pulse Rate 86 85 Respiratory Rate 22 H Blood Pressure Pulse Oximetry 95 11/14/20 16:00 11/14/20 16:19 11/14/20 17:20 Temperature 37.4 C Pulse Rate 72 73 72 Respiratory Rate 16 Blood Pressure 143/83 H Pulse Oximetry 97 98 11/14/20 18:00 11/14/20 20:00 11/14/20 20:13 Temperature 36.9 C Pulse Rate 67 69 68 Respiratory Rate 22 H 24 H 22 H Blood Pressure 131/78 139/80 Pulse Oximetry 98 93 11/14/20 20:19 11/14/20 20:21 11/14/20 21:09 Temperature Pulse Rate 67 70 61 Respiratory Rate 22 H Blood Pressure Pulse Oximetry 98 11/14/20 22:00 11/14/20 22:50 11/15/20 00:00 Temperature 37.0 C Pulse Rate 69 66 75 Respiratory Rate 20 23 H Blood Pressure 120/65 141/81 H Pulse Oximetry 99 98 91 11/15/20 00:33 11/15/20 01:45 11/15/20 02:00 Temperature Pulse Rate 72 67 82 Respiratory Rate 25 H Blood Pressure 173/93 H Pulse Oximetry 94 96 11/15/20 02:53 11/15/20 02:58 11/15/20 03:54 Temperature Pulse Rate 72 67 Respiratory Rate 22 H 22 H Blood Pressure Pulse Oximetry 92 11/15/20 04:00 11/15/20 04:50 11/15/20 06:00 Temperature 36.9 C Pulse Rate 70 72 67 Respirator
[2020-11-15 09:50] LABS: Alveolar/Arterial O2 Gradient 124.9 mmHg; Base Excess ABG 8.3 mEq/l (+/-2.0); Fractional Inspired Oxygen 35 %; Oxygen Content ABG 17.4 %vol (16.0-22.0); Oxygen Saturation ABG 95.1 % (95.0-100.0); Oxyhemoglobin 93.6 % THb (90.0-100.0); PCO2 ABG 46.1 mmHg (35.0-45.0); PO2 ABG 71.1 mmHg (80.0-100.0); PO2 FiO2 Ratio Arterial Blood 2.03 %; Total Hemoglobin 13.2 g/dL (12.0-18.0); pH ABG 7.473 (7.350-7.450)
[2020-11-15 09:52] LABS: Device VENTILATOR; Modified Allen's Test Pass; Site Drawn LEFT RADIAL
[2020-11-15 09:53] LABS: Arterial Blood Gas PEEP 5 cmH2O; Arterial Blood Gas Pressure Support 5 cmH2O; Arterial Blood Gas Vent Mode SPONTANEOUS; Peak Inspiratory Pressure 5 cmH2O
--- NOTE | 2020-11-15 10:05 | PM.EVENT ---
Event Note Event Note Event Note: 5/5 PSV SBT done for more than 1 hour. RSBI, ABGI and Vitals acceptable. Pt awake and following commands. Will extubate and monitor. NPO for now. Bipap PRN and HS. Patient is morbidly obese has chronic respiratory failure in the form of obesity hypoventilation syndrome so does have chance of re-intubation.
[2020-11-15 12:29] LABS: Glucose Point of Care 188 mg/dl (65-105)
[2020-11-15] MEDS: LABETALOL HCL INJ 100 MG/20 ML VIAL 20 MG IV PUSH (13:23)
--- NOTE | 2020-11-15 15:04 | PM.IMPN ---
Progress Note: A&P Assessment and Plan (1) Acute respiratory failure with hypoxemia: Code(s): J96.01 - Acute respiratory failure with hypoxia Status: Acute Assessment and Plan: Acute hypoxic respiratory failure, could be related to ARDS likely secondary to vaping (EVALI) versus community-acquired pneumonia -influenza a and B were negative, -SARS-CoV-2 PCR was negative -patient failed BiPAP due to tachypnea. Patient was intubated on 11/07/2020 at night -currently patient is on pressure control ventilation. ; on weaning trial. patient has failed pressure support trials over last couple of days and has tolerated higher pressure support for multiple hours daily. her RSBI is adequate but patient appears in respiratory distress with increase in blood pressure and her face turns completely red with increased work of breathing. - today will try again and patient has been placed on pressure support ventilation trial this morning. -continue Lasix for diuresis -ABG reviewed. -continue bronchodilators -continue pulmicort -continue Solu-Medrol taper over 10 days as recommended by by Pulmonary environmental remediation consultant (2) Shock: Code(s): R57.9 - Shock, unspecified Status: Acute Assessment and Plan: Leukocytosis along with bilateral infiltrates, possible pneumonia, hypersensitivity pneumonitis, ARDS, other source of infection -off of vasopressors this time -continue to maintain MAP > 65 mmHg -continue to monitor urine output, which has been adequate despite creatinine trending up -11/07: Blood cultures x2 negative so far, -11/08: Sputum Culture negative so far -Mild fever -Follow up pancultures -COntinue aztreonam. 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 (4) Chest pain: Code(s): R07.9 - Chest pain, unspecified Status: Acute Assessment and Plan: Patient complains of substernal chest pain without any radiation. EKG shows sinus tachycardia with no ST-T changes -troponins negative x4, -echocardiogram reviewed -likely pleuritic pain from inflammation (5) Diabetes mellitus: Qualifiers: Diabetes mellitus type: type 2 Diabetes mellitus senior living insulin use: without senior living use Diabetes mellitus complication status: with hyperglycemia Qualified Code(s): E11.65 - Type 2 diabetes mellitus with hyperglycemia Code(s): E11.9 - Type 2 diabetes mellitus without complications Status: Acute Assessment and Plan: Patient with history of diabetes and hyperglycemia -hemoglobin A1c this admission is 9.6 -patient off of IV insulin infusion at this time. Switched to sliding scale q.4 hours -patient currently on 90 units subQ q.h.s. hours. Add a.m. Lantus of 25 units will increase Lantus if unable to extubate (6) Hypothyroid: Qualifiers: Hypothyroidism type: acquired Qualified Code(s): E03.9 - Hypothyroidism, unspecified Code(s): E03.9 - Hypothyroidism, unspecified Status: Acute Assessment and Plan: Continue supplementation with IV levothyroxine. (7) Acute kidney injury: Code(s): N17.9 - Acute kidney failure, unspecified Status: Acute Assessment and Plan: Recovered acute kidney injury. Renal ultrasound was unremarkable Creatinine has improved to baseline. continue cautious diuresis (8) Suspected COVID-19 virus infection: Code(s): Z20.822 - Contact with and (suspected) exposure to COVID-19 Status: Acute Assessment and Plan: Patient with upper acute hypoxic respiratory failure, denies any contacts or exposure with COVID patient -patient did receive a 2nd dose of Moderna COVID vaccine in September 2020 -SARS-CoV-2 PCR was
[2020-11-15] MEDS: hydrALAZINE HCL 20 MG/ML VIAL IV PUSH (16:10)
[2020-11-15 16:14] LABS: Glucose Point of Care 178 mg/dl (65-105)
[2020-11-15] MEDS: MORPHINE SULFATE (*CRX) 2 MG/ML INJ IV PUSH (17:33)
[2020-11-15 19:29] LABS: Glucose Point of Care 141 mg/dl (65-105)
[2020-11-15] MEDS: ONDANSETRON INJ 4 MG/2 ML VIAL IV PUSH (21:30)
[2020-11-15 23:53] LABS: Glucose Point of Care 167 mg/dl (65-105)
[2020-11-16] VITALS (23 sets, daily range): BP systolic 140–174; BP diastolic 62–88; PULSE 74–110; RESP 10–30; TEMP 35.9–37.7; O2SAT 95–100; BMI 10.0
[2020-11-16] MEDS: ALBUTEROL SULFATE NEB 2.5 MG/0.5 ML INH INHALATION ×4 (02:14→21:45)
[2020-11-16] MEDS: IPRATROPIUM BR 0.02% INH SOLN 0.5 MG/2.5 ML VIAL INHALATION ×4 (02:14→21:45)
[2020-11-16 04:45] LABS: Alveolar/Arterial O2 Gradient 22.4 mmHg; Base Excess ABG 7.5 mEq/l (+/-2.0); Carboxyhemoglobin 0.8 % THb (0-2.0); Fractional Inspired Oxygen 22 %; HCO3 ABG 32.1 mEq/l (22.0-26.0); Methemoglobin ABG 0.4 %THb (0-1.5); Oxygen Content ABG 19.5 %vol (16.0-22.0); Oxygen Saturation ABG 96.5 % (95.0-100.0); Oxyhemoglobin 94.7 % THb (90.0-100.0); PCO2 ABG 44.8 mmHg (35.0-45.0); PO2 ABG 80.9 mmHg (80.0-100.0); PO2 FiO2 Ratio Arterial Blood 3.68 %; Reduced Hemoglobin 4.1 %THb (0-5.0); Total Hemoglobin 14.6 g/dL (12.0-18.0); pH ABG 7.473 (7.350-7.450)
[2020-11-16 04:46] LABS: Device NASAL CANNULA; Liters per Minute 0.5 LPM; Modified Allen's Test Pass; Site Drawn LEFT RADIAL
[2020-11-16 04:53] LABS: Glucose Point of Care 169 mg/dl (65-105)
[2020-11-16 05:09] LABS: Hematocrit 39.4 % (37.0-47.0); Hemoglobin 12.4 g/dL (12.0-15.0); Mean Corpuscular HGB Conc 31.5 g/dl (32-36); Mean Corpuscular Hemoglobin 27.7 pg (26-34); Mean Corpuscular Volume 87.9 fl (80-100); Mean Platelet Volume 10.8 fl (7.4-10.4); Platelet Count Result 353 k/mm3 (150-375); Red Blood Count 4.48 M/mm3 (4.2-5.4); Red Cell Distribution Width 13.4 % (11.5-14.5)
[2020-11-16 05:20] LABS: Alanine Aminotransferase 36 U/L (4-35); Alkaline Phosphatase 78 U/L (38-126); Anion Gap 8 mmol/L (8-16); Aspartate Amino Transferase 27 U/L (14-36); Bilirubin,Total 0.8 mg/dL (0.2-1.3); Blood Urea Nitrogen 33 mg/dL (7-17); Calcium 9.2 mg/dL (8.4-10.2); Carbon Dioxide 35 mmol/L (22-30); Chloride 92 mmol/L (98-107); Estimated Glomerular Filt Rate > 60; Glucose 197 mg/dL (65-110); Potassium 4.2 mmol/L (3.4-5.0); Sodium 135 mmol/L (137-145)
[2020-11-16] MEDS: AZTREONAM 2 GM in DEXTROSE 5% 100 ML 200 ML IVPB (05:20)
[2020-11-16] MEDS: CENTRAL LINE FLUSH 10 ML IV PUSH (05:21)
--- NOTE | 2020-11-16 08:57 | PCSTNOTE ---
Therapist spoke with nurse who reported patient was stating that she was unable to sit up. Nurse requested therapist return late morning or early afternoon to attempt Bedside Swallow Evaluation.
[2020-11-16] MEDS: methylPREDNISolone SOD SUCC 40 MG VIAL IV PUSH (09:07)
[2020-11-16] MEDS: INSULIN GLARGINE (*BKC) 100 UNITS/ML 25 UNITS SUB-Q (09:07)
[2020-11-16] MEDS: FUROSEMIDE INJ 40 MG/4 ML VIAL IV PUSH (09:07)
[2020-11-16] MEDS: TOLNAFTATE 1% POWDER 45 GM BTL 1 APPLIC TOPICAL ×2 (09:08→19:46)
--- NOTE | 2020-11-16 09:22 | PM.IMPN ---
Progress Note: A&P Assessment and Plan (1) Acute respiratory failure with hypoxemia: Code(s): J96.01 - Acute respiratory failure with hypoxia Status: Acute Assessment and Plan: Acute hypoxic respiratory failure, could be related to ARDS likely secondary to vaping (EVALI) versus community-acquired pneumonia -influenza a and B were negative, -SARS-CoV-2 PCR was negative -patient extubated successfully on 11/15/2020. -continue Lasix for diuresis -ABG reviewed. Mild alkalosis. -continue bronchodilators -continue pulmicort -continue Solu-Medrol taper over 10 days as recommended by by Pulmonary informatics consultant (2) Shock: Code(s): R57.9 - Shock, unspecified Status: Acute Assessment and Plan: -REsolved -Hypertensive on BP medications. continue amlodipine 5 mg PO daily -lopressor 20 mg IV q 4 hrs PRN -Hydralazine 20 mg IV q 4 hrs PRN. -11/07: Blood cultures x2 negative so far, -11/08: Sputum Culture negative so far -Mild fever -Follow up pancultures -Completed aztreonam. Start Augmentin to complete 10-day antibiotic therapy. 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 (4) Chest pain: Code(s): R07.9 - Chest pain, unspecified Status: Acute Assessment and Plan: Patient complains of substernal chest pain without any radiation. EKG shows sinus tachycardia with no ST-T changes -troponins negative x4, -echocardiogram reviewed -likely pleuritic pain from inflammation (5) Diabetes mellitus: Qualifiers: Diabetes mellitus type: type 2 Diabetes mellitus retirement insulin use: without retirement use Diabetes mellitus complication status: with hyperglycemia Qualified Code(s): E11.65 - Type 2 diabetes mellitus with hyperglycemia Code(s): E11.9 - Type 2 diabetes mellitus without complications Status: Acute Assessment and Plan: Patient with history of diabetes and hyperglycemia -Fastig blood sugar 197 -Accu-checks in the 141-188 range. -hemoglobin A1c this admission is 9.6 -patient off of IV insulin infusion at this time. Switched to sliding scale q.4 hours -patient currently on 90 units subQ q.h.s. hours. Add a.m. Lantus of 25 units will increase Lantus if unable to extubate (6) Hypothyroid: Qualifiers: Hypothyroidism type: acquired Qualified Code(s): E03.9 - Hypothyroidism, unspecified Code(s): E03.9 - Hypothyroidism, unspecified Status: Acute Assessment and Plan: Continue supplementation with IV levothyroxine. (7) Acute kidney injury: Code(s): N17.9 - Acute kidney failure, unspecified Status: Acute Assessment and Plan: Recovered acute kidney injury. Creatinie stable at 0.8 on 11/16/2020. Renal ultrasound was unremarkable Creatinine has improved to baseline. continue cautious diuresis (8) Suspected COVID-19 virus infection: Code(s): Z20.822 - Contact with and (suspected) exposure to COVID-19 Status: Acute Assessment and Plan: Patient with upper acute hypoxic respiratory failure, denies any contacts or exposure with COVID patient -patient did receive a 2nd dose of Moderna COVID vaccine in September 2020 -SARS-CoV-2 PCR was negative (9) DVT prophylaxis: Code(s): Z29.9 - Encounter for prophylactic measures, unspecified Status: Acute Assessment and Plan: Continue enoxaparin 40 mg SQ Q12H Additional Plan Code status: Full code. Subjective Date/time seen: 11/16/20 09:22 Interval history: Patient is extubated, breathing comfortably on oxygen via nasal canula. 1L/min. Patient looks comfortable in bed. She is awake alert. following command. Review of Systems Review of S
[2020-11-16] MEDS: NEOMYCIN/POLYMYXIN/BACITRACIN OINTMENT PACKET 1 PACKET (10:05)
[2020-11-16] MEDS: BUDESONIDE RESPULE NEB 0.5 MG/2 ML AMP INHALATION ×2 (10:06→21:45)
--- NOTE | 2020-11-16 10:27 | WPDINTPN ---
Progress Note: A&P Assessment and Plan (1) Acute respiratory failure with hypoxemia: Code(s): J96.01 - Acute respiratory failure with hypoxia Status: Acute Assessment and Plan: Acute hypoxic respiratory failure, could be related to ARDS likely secondary to vaping (EVALI) versus community-acquired pneumonia -influenza a and B were negative, -SARS-CoV-2 PCR was negative -patient failed BiPAP due to tachypnea. Patient was intubated on 11/07/2020 at night and management of pressure control ventilation - after trialing for couple of days patient was finally extubated yesterday after successful weaning trial - she has been saturating well on 1 L nasal cannula and has not had in respiratory distress. BiPAP is on standby as p.r.n. - incentive spirometry, PT OT and up in chair today to minimize atelectasis -continue Lasix for diuresis -ABG reviewed. -continue bronchodilators -continue pulmicort -continue Solu-Medrol taper over 10 days as recommended by by Pulmonary customs consultant. I will change that to equal in dose of p.o. prednisone last few days (2) Shock: Code(s): R57.9 - Shock, unspecified Status: Acute Assessment and Plan: Leukocytosis along with bilateral infiltrates, possible pneumonia, hypersensitivity pneumonitis, ARDS, other source of infection -off of vasopressors this time -continue to maintain MAP > 65 mmHg -continue to monitor urine output, which has been adequate despite creatinine trending up -11/07: Blood cultures x2 negative so far, -11/08: Sputum Culture negative so far - change aztreonam to p.o. 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 EKG shows sinus tachycardia with no ST-T changes -troponins negative x4, -echocardiogram reviewed -likely pleuritic pain from inflammation (5) Diabetes mellitus: Qualifiers: Diabetes mellitus type: type 2 Diabetes mellitus rodent exterminator insulin use: without rodent exterminator use Diabetes mellitus complication status: with hyperglycemia Qualified Code(s): E11.65 - Type 2 diabetes mellitus with hyperglycemia Code(s): E11.9 - Type 2 diabetes mellitus without complications Status: Acute Assessment and Plan: Patient with history of diabetes and hyperglycemia -hemoglobin A1c this admission is 9.6 -patient off of IV insulin infusion at this time. Switched to sliding scale q.4 hours - continue Lantus - speech eval today for swallowing (6) Hypothyroid: Qualifiers: Hypothyroidism type: acquired Qualified Code(s): E03.9 - Hypothyroidism, unspecified Code(s): E03.9 - Hypothyroidism, unspecified Status: Acute Assessment and Plan: Will continue levothyroxine, (7) Acute kidney injury: Code(s): N17.9 - Acute kidney failure, unspecified Status: Acute Assessment and Plan: Renal ultrasound was unremarkable Creatinine has improved to baseline and electrolytes acceptable Nephrology has signed off continue cautious diuresis patient was given a dose of Kayexalate yesterday and K today's in normal range (8) Suspected COVID-19 virus infection: Code(s): Z20.822 - Contact with and (suspected) exposure to COVID-19 Status: Acute Assessment and Plan: Patient with upper acute hypoxic respiratory failure, denies any contacts or exp
--- NOTE | 2020-11-16 11:06 | PCDIET ---
Nutrition Follow-Up Complete: Nutrition Diagnosis: Inadequate oral intake related to oral intubation as evidenced by NPO status. Nutrition Goal: Patient to meet estimated nutritional needs. Goal in progress. Patient extubated and c/o difficulty swallowing pills. BALL ASSEMBLER evaluation ordered. If unable to safely advance diet, recommend resuming tube feedings. Last recorded weight is 220 kg which is down from last review. -I/O. Bowel Motility: No documented BM. Recommend administering Dulcolax which is ordered prn. Labs Reviewed: Glu (197), BUN (33), Na (135), Alb (4.0) Meds Noted: Albuterol, Pulmicort, Lantus, Norvasc, Lasix, Apresoline, Atrovent, Levaquin, Synthroid, Solu Medrol Additional Notes: No documented skin breakdown. Will continue to monitor with same goal. Nutrition Monitoring and Evaluation: Follow up every 3 days.
--- NOTE | 2020-11-16 12:02 | PCSTNOTE ---
Please refer to the Bedside Swallow Evaluation in the EMR. Please note, silent aspiration cannot be ruled out at bedside.
[2020-11-16] MEDS: amLODIPine BESYLATE 5 MG TABLET PO (12:07)
[2020-11-16] MEDS: INSULIN ASPART (*BKC) 100 UNITS/ML SUB-Q ×2 (12:08→16:24)
[2020-11-16] MEDS: levoFLOXacin 750 MG TABLET PO (12:08)
[2020-11-16 12:18] LABS: Glucose Point of Care 215 mg/dl (65-105)
[2020-11-16] MEDS: FLUoxetine HCL 20 MG CAPSULE PO (15:59)
[2020-11-16 16:05] LABS: Glucose Point of Care 223 mg/dl (65-105)
[2020-11-16 19:43] LABS: Glucose Point of Care 192 mg/dl (65-105)
[2020-11-17] VITALS (25 sets, daily range): BP systolic 125–152; BP diastolic 47–83; PULSE 87–126; RESP 20–33; TEMP 36.6–37.3; O2SAT 93–99; BMI 10.0
[2020-11-17 00:12] LABS: Glucose Point of Care 164 mg/dl (65-105)
[2020-11-17] MEDS: hydrALAZINE HCL 20 MG/ML VIAL IV PUSH (00:15)
[2020-11-17] MEDS: ALBUTEROL SULFATE NEB 2.5 MG/0.5 ML INH INHALATION ×3 (03:26→20:49)
[2020-11-17] MEDS: IPRATROPIUM BR 0.02% INH SOLN 0.5 MG/2.5 ML VIAL INHALATION ×3 (03:26→20:49)
[2020-11-17 04:44] LABS: Hematocrit 40.1 % (37.0-47.0); Hemoglobin 12.6 g/dL (12.0-15.0); Mean Corpuscular HGB Conc 31.4 g/dl (32-36); Mean Corpuscular Hemoglobin 27.9 pg (26-34); Mean Corpuscular Volume 88.7 fl (80-100); Mean Platelet Volume 10.7 fl (7.4-10.4); Platelet Count Result 342 k/mm3 (150-375); Red Blood Count 4.52 M/mm3 (4.2-5.4); Red Cell Distribution Width 13.4 % (11.5-14.5); White Blood Count 14.6 K/mm3 (4.5-10.0)
[2020-11-17 05:02] LABS: Alanine Aminotransferase 32 U/L (4-35); Alkaline Phosphatase 82 U/L (38-126); Anion Gap 8 mmol/L (8-16); Aspartate Amino Transferase 28 U/L (14-36); Bilirubin,Total 0.9 mg/dL (0.2-1.3); Blood Urea Nitrogen 32 mg/dL (7-17); Calcium 9.5 mg/dL (8.4-10.2); Carbon Dioxide 36 mmol/L (22-30); Chloride 93 mmol/L (98-107); Estimated Glomerular Filt Rate > 60; Glucose 189 mg/dL (65-110); Magnesium 1.9 mg/dL (1.6-2.3); Potassium 3.4 mmol/L (3.4-5.0); Sodium 137 mmol/L (137-145)
[2020-11-17] MEDS: ACETAMINOPHEN 325 MG TABLET 650 MG PO ×2 (05:34→19:54)
[2020-11-17] MEDS: LEVOTHYROXINE SODIUM 75 MCG TABLET PO (05:35)
[2020-11-17] MEDS: BUDESONIDE RESPULE NEB 0.5 MG/2 ML AMP INHALATION ×2 (08:17→20:49)
[2020-11-17 08:31] LABS: Glucose Point of Care 177 mg/dl (65-105)
[2020-11-17] MEDS: INSULIN GLARGINE (*BKC) 100 UNITS/ML 25 UNITS SUB-Q (09:37)
[2020-11-17] MEDS: predniSONE 40 MG, predniSONE 10 MG 50 MG PO (09:38)
[2020-11-17] MEDS: amLODIPine BESYLATE 5 MG TABLET PO (09:38)
[2020-11-17] MEDS: levoFLOXacin 750 MG TABLET PO (09:39)
[2020-11-17] MEDS: FLUoxetine HCL 20 MG CAPSULE PO (09:39)
[2020-11-17] MEDS: TOLNAFTATE 1% POWDER 45 GM BTL 1 APPLIC TOPICAL ×2 (09:39→19:56)
[2020-11-17 12:04] LABS: Glucose Point of Care 200 mg/dl (65-105)
--- NOTE | 2020-11-17 12:57 | PCDIET ---
Nutrition Follow-Up Complete: Nutrition Diagnosis: Inadequate oral intake related to oral intubation as evidenced by NPO status. Nutrition Goal: Patient to meet estimated nutritional needs. Goal in progress. Patient taking some oral diet, but only 20-25% of meals. Refuses Glucerna supplements. Requesting gelatin and applesauce. Discussed importance of adequate protein intake. Recommend carbohydrate controlled diet once intakes improve to optimize glucose levels. Last recorded weight is 176 kg which is decreased from last review. Bowel Motility: Last documented BM on 11/16/20 x 2. Labs Reviewed: Glu (189), BUN (32) Meds Noted: Albuterol, Norvasc, Pulmicort, Apresoline, Lantus, Atrovent, Levaquin, Synthroid, Prednisone Additional Notes: No pressure sores documented. Will continue to monitor with same goal. Nutrition Monitoring and Evaluation: Follow up every 3 days.
[2020-11-17] MEDS: ONDANSETRON INJ 4 MG/2 ML VIAL IV PUSH (14:10)
--- NOTE | 2020-11-17 14:12 | PM.IMPN ---
Progress Note: A&P Assessment and Plan (1) Acute respiratory failure with hypoxemia: Code(s): J96.01 - Acute respiratory failure with hypoxia Status: Acute Assessment and Plan: Acute hypoxic respiratory failure, could be related to ARDS likely secondary to vaping (EVALI) versus community-acquired pneumonia -influenza a and B were negative, -SARS-CoV-2 PCR was negative -patient failed BiPAP due to tachypnea. Patient was intubated on 11/07/2020 at night and management of pressure control ventilation - after trialing for couple of days patient was finally extubated on 11/15/2020 after successful weaning trial - she has been saturating well on 1 L nasal cannula and has not experienced respiratory distress. - incentive spirometry, PT OT and up in chair today to minimize atelectasis -continue Lasix for diuresis -ABG reviewed. -continue bronchodilators -continue pulmicort -continue Solu-Medrol taper over 10 days as recommended by by Pulmonary surgical consultant. I will change that to equal in dose of p.o. prednisone last few days (2) Shock: Code(s): R57.9 - Shock, unspecified Status: Acute Assessment and Plan: Leukocytosis along with bilateral infiltrates, possible pneumonia, hypersensitivity pneumonitis, ARDS, other source of infection -wbcs are trendign down -off of vasopressors this time -continue to maintain MAP > 65 mmHg -continue to monitor urine output, which has been adequate despite creatinine trending up -11/07: Blood cultures x2 negative so far, -11/08: Sputum Culture negative so far - Continue oral Levaquin to complete a 10 day course - Her WBC is normal and patient is afebrile (3) Vaping-related disorder: Code(s): U07.0 - Vaping-related disorder Status: Acute Assessment and Plan: Patient with history of e- cigarettes/vaping -patient giving history of 2 weeks of worsening onset of shortness of breath, this could be related to EVALI (e-cigarette or vaping associated lung injury) -continue Solu-Medrol as above mentioned -appreciate pulmonology evaluation, agrees with treatment plan (4) Chest pain: Code(s): R07.9 - Chest pain, unspecified Status: Acute Assessment and Plan: Patient complains of substernal chest pain without any radiation. 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 Continue lantus and lispro coverage. currently on sliding scale AC and HS. - continue Lantus - speech evaluation today for swallowing (6) Hypothyroid: Qualifiers: Hypothyroidism type: acquired Qualified Code(s): E03.9 - Hypothyroidism, unspecified Code(s): E03.9 - Hypothyroidism, unspecified Status: Acute Assessment and Plan: Resume PO levothyroxine. (7) Acute kidney injury: Code(s): N17.9 - Acute kidney failure, unspecified Status: Acute Assessment and Plan: Renal ultrasound was unremarkable Creatinine has improved to baseline and electrolytes acceptable Nephrology has signed off continue cautious diuresis Creatinine stable at 0.8. (8) Suspected COVID-19 virus infection: Code(s): Z20.822 - Contact with and (suspected) exposure to COVID-19 Status: Acute Assessment and Plan: Patient with upper acute hypoxic respiratory failure, denies any contacts or exposure with COVID patient -patient did receive a
[2020-11-17 16:24] LABS: Glucose Point of Care 268 mg/dl (65-105)
[2020-11-17] MEDS: INSULIN ASPART (*BKC) 100 UNITS/ML SUB-Q (17:36)
[2020-11-17 20:07] LABS: Glucose Point of Care 194 mg/dl (65-105)
[2020-11-18] VITALS (13 sets, daily range): BP systolic 127–153; BP diastolic 52–93; PULSE 84–107; RESP 18–24; TEMP 36.3–37.2; O2SAT 92–95; BMI 10.0
[2020-11-18] MEDS: IPRATROPIUM BR 0.02% INH SOLN 0.5 MG/2.5 ML VIAL INHALATION ×3 (01:49→19:38)
[2020-11-18] MEDS: ALBUTEROL SULFATE NEB 2.5 MG/0.5 ML INH INHALATION ×3 (01:49→19:38)
[2020-11-18 04:57] LABS: Hematocrit 38.4 % (37.0-47.0); Hemoglobin 11.9 g/dL (12.0-15.0); Mean Corpuscular Hemoglobin 27.3 pg (26-34); Mean Corpuscular Volume 88.1 fl (80-100); Mean Platelet Volume 11.6 fl (7.4-10.4); Platelet Count Result 336 k/mm3 (150-375); Red Blood Count 4.36 M/mm3 (4.2-5.4); Red Cell Distribution Width 13.2 % (11.5-14.5)
[2020-11-18 05:10] LABS: Alanine Aminotransferase 29 U/L (4-35); Albumin Level 3.8 g/dL (3.5-5.1); Alkaline Phosphatase 83 U/L (38-126); Anion Gap 8 mmol/L (8-16); Aspartate Amino Transferase 25 U/L (14-36); Bilirubin,Total 0.7 mg/dL (0.2-1.3); Blood Urea Nitrogen 36 mg/dL (7-17); Calcium 9.3 mg/dL (8.4-10.2); Carbon Dioxide 34 mmol/L (22-30); Chloride 96 mmol/L (98-107); Estimated Glomerular Filt Rate > 60; Glucose 172 mg/dL (65-110); Magnesium 2.1 mg/dL (1.6-2.3); Potassium 3.4 mmol/L (3.4-5.0); Sodium 138 mmol/L (137-145)
[2020-11-18] MEDS: LEVOTHYROXINE SODIUM 75 MCG TABLET PO (06:09)
[2020-11-18 08:11] LABS: Glucose Point of Care 168 mg/dl (65-105)
[2020-11-18] MEDS: INSULIN GLARGINE (*BKC) 100 UNITS/ML 25 UNITS SUB-Q (08:56)
[2020-11-18] MEDS: predniSONE 40 MG, predniSONE 10 MG 50 MG PO (08:58)
[2020-11-18] MEDS: FLUoxetine HCL 20 MG CAPSULE PO (08:58)
[2020-11-18] MEDS: amLODIPine BESYLATE 5 MG TABLET PO (08:59)
[2020-11-18] MEDS: levoFLOXacin 750 MG TABLET PO (08:59)
[2020-11-18] MEDS: TOLNAFTATE 1% POWDER 45 GM BTL 1 APPLIC TOPICAL ×2 (09:00→21:57)
--- NOTE | 2020-11-18 12:39 | PM.IMPN ---
Progress Note: A&P Assessment and Plan (1) Acute respiratory failure with hypoxemia: Code(s): J96.01 - Acute respiratory failure with hypoxia Status: Acute Assessment and Plan: Acute hypoxic respiratory failure, could be related to ARDS likely secondary to vaping (EVALI) versus community-acquired pneumonia -influenza a and B were negative, -SARS-CoV-2 PCR was negative -patient failed BiPAP due to tachypnea. Patient was intubated from 11/07/2020-11/15/2020.l - she has been saturating well room air and has not experienced respiratory distress. - Continue incentive spirometry, PT OT and up in chair today to minimize atelectasis -continue Lasix for diuresis -continue bronchodilators -continue pulmicort -continue Solu-Medrol taper over 10 days (2) Shock: Code(s): R57.9 - Shock, unspecified Status: Acute Assessment and Plan: Leukocytosis along with bilateral infiltrates, possible pneumonia, hypersensitivity pneumonitis, ARDS, other source of infection -wbcs are trendign down 12 today. -continue to monitor urine output, - Continue oral Levaquin to complete a 10 day course (3) Vaping-related disorder: Code(s): U07.0 - Vaping-related disorder Status: Acute Assessment and Plan: Patient with history of e- cigarettes/vaping -patient giving history of 2 weeks of worsening onset of shortness of breath, this could be related to EVALI (e-cigarette or vaping associated lung injury) (4) Chest pain: Code(s): R07.9 - Chest pain, unspecified Status: Acute Assessment and Plan: Patient complains of substernal chest pain without any radiation. 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 Accu-checks in the 168-379 range. Continue lantus and lispro coverage. currently on sliding scale AC and HS. - continue Lantus - Patient passed swallowing evaluation. (6) Hypothyroid: Qualifiers: Hypothyroidism type: acquired Qualified Code(s): E03.9 - Hypothyroidism, unspecified Code(s): E03.9 - Hypothyroidism, unspecified Status: Acute Assessment and Plan: Continue PO levothyroxine. (7) Acute kidney injury: Code(s): N17.9 - Acute kidney failure, unspecified Status: Acute Assessment and Plan: Renal ultrasound was unremarkable Creatinine has improved to baseline and electrolytes acceptable Nephrology has signed off continue cautious diuresis Creatinine stable at 0.9. (8) Suspected COVID-19 virus infection: Code(s): Z20.822 - Contact with and (suspected) exposure to COVID-19 Status: Acute Assessment and Plan: Patient with upper acute hypoxic respiratory failure, denies any contacts or exposure with COVID patient -patient did receive a 2nd dose of Moderna COVID vaccine in September 2020 -SARS-CoV-2 PCR was negative (9) DVT prophylaxis: Code(s): Z29.9 - Encounter for prophylactic measures, unspecified Status: Acute Assessment and Plan: Sequential compression (10) Bleeding: Code(s): R58 - Hemorrhage, not elsewhere classified Status: Acute Assessment and Plan: patient has been using it PICC site PICC line will be removed and peripheral IV will be placed on the other on check Dopplers of right upper extremity. No deep venous thrombosis of the right upper extremity. Ad
[2020-11-18] MEDS: BUDESONIDE RESPULE NEB 0.5 MG/2 ML AMP INHALATION ×2 (14:18→19:38)
--- NOTE | 2020-11-18 15:27 | PC.NURSE ---
This patient, Claudia Delgado, was transferred to [facility] on 11/18/20 at 1520. Personal belongings sent with patient. Report given to Christina VIVAS. Appropriate documentation sent with patient.
[2020-11-18 16:56] LABS: Glucose Point of Care 379 mg/dl (65-105)
[2020-11-18] MEDS: INSULIN ASPART (*BKC) 100 UNITS/ML SUB-Q (16:56)
--- NOTE | 2020-11-18 17:41 | PC.NURSE ---
On 11/18/20, the student, Oma Márquez [facility] , provided care and completed [facility] documentation on this patient. I have reviewed the student's documentation and agree with the findings.
[2020-11-18 22:07] LABS: Glucose Point of Care 281 mg/dl (65-105)
[2020-11-19] VITALS (12 sets, daily range): BP systolic 137–164; BP diastolic 61–83; PULSE 64–81; RESP 18–22; TEMP 36.2–36.9; O2SAT 93–100
[2020-11-19] MEDS: IPRATROPIUM BR 0.02% INH SOLN 0.5 MG/2.5 ML VIAL INHALATION ×4 (01:36→20:59)
[2020-11-19] MEDS: ALBUTEROL SULFATE NEB 2.5 MG/0.5 ML INH INHALATION ×4 (01:36→20:59)
[2020-11-19] MEDS: LEVOTHYROXINE SODIUM 75 MCG TABLET PO (06:36)
[2020-11-19 07:44] LABS: Glucose Point of Care 208 mg/dl (65-105)
[2020-11-19] MEDS: BUDESONIDE RESPULE NEB 0.5 MG/2 ML AMP INHALATION ×2 (08:08→20:59)
[2020-11-19] MEDS: amLODIPine BESYLATE 5 MG TABLET PO (09:05)
[2020-11-19] MEDS: TOLNAFTATE 1% POWDER 45 GM BTL 1 APPLIC TOPICAL ×2 (09:05→20:25)
[2020-11-19] MEDS: FLUoxetine HCL 20 MG CAPSULE PO (09:05)
[2020-11-19] MEDS: INSULIN GLARGINE (*BKC) 100 UNITS/ML 25 UNITS SUB-Q (09:09)
[2020-11-19] MEDS: INSULIN ASPART (*BKC) 100 UNITS/ML SUB-Q ×3 (09:13→16:46)
[2020-11-19] MEDS: ACETAMINOPHEN 325 MG TABLET 650 MG PO ×3 (11:53→22:00)
[2020-11-19 12:09] LABS: Glucose Point of Care 301 mg/dl (65-105)
--- NOTE | 2020-11-19 12:22 | PCNFU ---
Nutrition Follow-Up Complete: Inadequate oral intake related to oral intubation as evidenced by NPO status. Goal:Patient to meet estimated nutritional needs. Patient is progressing towards goal. Pt current nutrition is Diabetic consistent carb diet. Last recorded weight is 219.8 kg, down from 224.1 kg on admit. Bowel Motility:+BM reported 11/18 Labs Reviewed:Glu 172,Hgb 11.9 Meds Noted:Zofran,Synthroid, Norvasc, NovoLog,Lantus,Atrovent, Prozac. Additional Notes: Nutrition follow up. Patient had been on a regular diet due to poor po intake. Appetite has improved-100% of breakfast today. Diet order changed per MD orders to a diabetic consistent carb diet. POC 301 today. Skin: Bilateral groin-rash. Skin fold abdomen-rash. Monitoring: Follow up every 5 days.
--- NOTE | 2020-11-19 12:47 | PM.IMPN ---
Progress Note: A&P Assessment and Plan (1) Acute respiratory failure with hypoxemia: Code(s): J96.01 - Acute respiratory failure with hypoxia Status: Acute Assessment and Plan: Acute hypoxic respiratory failure, could be related to ARDS likely secondary to vaping (EVALI) versus community-acquired pneumonia -influenza a and B were negative, -SARS-CoV-2 PCR was negative -patient failed BiPAP due to tachypnea. Patient was intubated from 11/07/2020-11/15/2020. - she has been saturating well room air and has not experienced respiratory distress. - Continue incentive spirometry, PT OT and up in chair today to minimize atelectasis -continue Lasix for diuresis -continue bronchodilators -continue pulmicort -continue Solu-Medrol taper over 10 days (2) Shock: Code(s): R57.9 - Shock, unspecified Status: Acute Assessment and Plan: Leukocytosis along with bilateral infiltrates, possible pneumonia, hypersensitivity pneumonitis, ARDS, other source of infection -wbcs are trending down 12 on 11/18/2020. Monitor CBC tomorrow -continue to monitor urine output, - Continue oral Levaquin to complete a 10 day course (3) Vaping-related disorder: Code(s): U07.0 - Vaping-related disorder Status: Acute Assessment and Plan: Patient with history of e- cigarettes/vaping -patient giving history of 2 weeks of worsening onset of shortness of breath, this could be related to EVALI (e-cigarette or vaping associated lung injury) (4) Chest pain: Code(s): R07.9 - Chest pain, unspecified Status: Acute Assessment and Plan: Patient complains of substernal chest pain without any radiation. 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 Accu-checks in the 168-379 range. Continue lantus and lispro coverage. currently on sliding scale AC and HS. Start low carb diet. Check chemistry in AM. - continue Lantus - Patient passed swallowing evaluation. (6) Hypothyroid: Qualifiers: Hypothyroidism type: acquired Qualified Code(s): E03.9 - Hypothyroidism, unspecified Code(s): E03.9 - Hypothyroidism, unspecified Status: Acute Assessment and Plan: Continue PO levothyroxine. (7) Acute kidney injury: Code(s): N17.9 - Acute kidney failure, unspecified Status: Acute Assessment and Plan: Renal ultrasound was unremarkable Creatinine has improved to baseline and electrolytes acceptable Nephrology has signed off continue cautious diuresis Creatinine stable at 0.9. (8) Suspected COVID-19 virus infection: Code(s): Z20.822 - Contact with and (suspected) exposure to COVID-19 Status: Acute Assessment and Plan: Patient with upper acute hypoxic respiratory failure, denies any contacts or exposure with COVID patient -patient did receive a 2nd dose of Moderna COVID vaccine in September 2020 -SARS-CoV-2 PCR was negative (9) DVT prophylaxis: Code(s): Z29.9 - Encounter for prophylactic measures, unspecified Status: Acute Assessment and Plan: Sequential compression (10) Bleeding: Code(s): R58 - Hemorrhage, not elsewhere classified Status: Acute Assessment and Plan: patient has been using it PICC site PICC line will be removed and peripheral IV will be placed on the other on check Dopplers of right upper ext
[2020-11-19 16:47] LABS: Glucose Point of Care 214 mg/dl (65-105)
[2020-11-19 21:14] LABS: Glucose Point of Care 213 mg/dl (65-105)
[2020-11-20] VITALS (12 sets, daily range): BP systolic 144–152; BP diastolic 69–79; PULSE 72–92; RESP 16–20; TEMP 36.3–36.5; O2SAT 94–99
[2020-11-20] MEDS: ALBUTEROL SULFATE NEB 2.5 MG/0.5 ML INH INHALATION ×4 (03:27→20:23)
[2020-11-20] MEDS: IPRATROPIUM BR 0.02% INH SOLN 0.5 MG/2.5 ML VIAL INHALATION ×4 (03:27→20:23)
[2020-11-20] MEDS: LEVOTHYROXINE SODIUM 75 MCG TABLET PO (05:38)
[2020-11-20] MEDS: ACETAMINOPHEN 325 MG TABLET 650 MG PO ×2 (05:38→20:58)
[2020-11-20] MEDS: BUDESONIDE RESPULE NEB 0.5 MG/2 ML AMP INHALATION ×2 (08:01→20:23)
[2020-11-20 08:09] LABS: Glucose Point of Care 152 mg/dl (65-105)
[2020-11-20] MEDS: amLODIPine BESYLATE 5 MG TABLET PO (08:26)
[2020-11-20] MEDS: FLUoxetine HCL 20 MG CAPSULE PO (08:26)
[2020-11-20] MEDS: INSULIN GLARGINE (*BKC) 100 UNITS/ML 25 UNITS SUB-Q (08:28)
[2020-11-20] MEDS: TOLNAFTATE 1% POWDER 45 GM BTL 1 APPLIC TOPICAL ×2 (08:29→20:57)
[2020-11-20 10:09] LABS: Hematocrit 38.8 % (37.0-47.0); Hemoglobin 12.3 g/dL (12.0-15.0); Mean Corpuscular HGB Conc 31.7 g/dl (32-36); Mean Corpuscular Hemoglobin 27.3 pg (26-34); Mean Platelet Volume 11.9 fl (7.4-10.4); Platelet Count Result 346 k/mm3 (150-375); Red Blood Count 4.51 M/mm3 (4.2-5.4); White Blood Count 12.2 K/mm3 (4.5-10.0)
--- NOTE | 2020-11-20 10:59 | PM.IMPN ---
Progress Note: A&P Additional Plan START OF DOCTOR CECE?S PROGRESS NOTE Subjective: The patient complains of diarrhea and cough which is occasionally productive of which she describes as dry blood. Overnight [place] fever, rigors, nausea, vomiting, wheeze, abdominal pain, chest pain, dyspnea, dysuria. I have explained to the patient her current medical condition and plan of care and I have answered all her questions. Objective: General: -Alert -No acute distress -No dyspnea -No tachypnea -morbidly obese Heart: -Regular rate -Regular rhythm -No murmurs -No gallops -No rubs Lungs: -No wheeze -No rhonchi -No rales Abdomen: -Normal bowel sounds in all four quadrants -No rebound -No guarding -No tenderness Extremities: -2/4 pulse in all four extremities -No clubbing -No cyanosis -No edema Additional Details / Additional Findings / Exceptions / Miscellaneous: Pertinent Laboratory Results / Pertinent Radiology Results / Pertinent Diagnostic Results / Pertinent Vital Signs: Blood pressure 144/79, pulse 96, white blood count 12.2 Assessment / Plan: Respiratory failure, status post intubation [place] 2020, status post extubation November 15, 2020. Overall her studies have been unremarkable and it is believed that her respiratory failure may have been caused by her history of vaping. Albuterol 2.5 mg nebulized q.6 hours plus ipratropium 0.5 mg nebulized q.6 hours plus budesonide 0.5 mg inhaled b.i.d. Depression. Prozac 20 mg p.o. daily Anxiety Tobacco abuse via vaping. Patient becomes regarding cessation GERD Hypertension. Norvasc 10 mg p.o. daily Obesity. Patient counseled regarding lifestyle modification Obstructive sleep apnea. CPAP/BiPAP: Okay to use home device and/or pressure when sleeping Asthma Diabetes. Will check fingerstick glucose q.a.c. and HS and provide insulin sliding scale plus insulin glargine 25 units subcutaneously daily Hypothyroidism thyroid appeared to torsemide 5 mg p.o. daily Urinary tract infection. Will check UA with micro Fimbria Acute renal insufficiency, resolved DVT prophylaxis. Bilateral CT Disposition: Patient appears medically stable for discharge. I will discuss with case management/social work in conjunction with physical therapy and occupational therapy END OF DOCTOR CECE?S PROGRESS NOTE Subjective Date/time seen: 11/20/20 10:59 Objective Data Vital Signs Vital Signs: Vital Signs - 24 hr 11/19/20 14:13 11/19/20 14:21 11/19/20 16:57 Temperature 98.4 F Pulse Rate 78 75 80 Respiratory Rate 18 18 18 Blood Pressure 162/83 H Pulse Oximetry 94 11/19/20 21:00 11/19/20 21:15 11/19/20 22:00 Temperature 97.1 F L Pulse Rate 81 73 70 Respiratory Rate 18 18 22 H Blood Pressure 137/61 Pulse Oximetry 93 93 100 11/20/20 03:25 11/20/20 03:34 11/20/20 06:00 Temperature 97.7 F Pulse Rate 82 78 80 Respiratory Rate 18 18 20 Blood Pressure 144/79 H Pulse Oximetry 99 11/20/20 08:02 11/20/20 08:13 Temperature Pulse Rate 86 76 Respiratory Rate 18 18 Blood Pressure Pulse Oximetry 94 Intake/Output Intake/Output: Intake & Output 11/17/20 11/18/20 11/19/20 11/20/20 23:59 23:59 23:59 23:59 Intake Total 115 233 3644 960 Output Total 1650 1425 1300 [facility] -1210 -985 -20 960 Meds/Results Medications: Active Medications Generic Name Dose Route Start Last Admin Trade Name Freq PRN Reason Stop Dose Admin Acetaminophen 650 mg 11/15/20 14:27 11/20/20 05:38 Acetaminophen 325 Mg Tablet PO 650 mg Q4H PRN Administration Headache, Fever or pain Albuterol 2.5 mg 11/07/20 20:00 11/20/20 08:02 Albuterol Sulfate Neb 2.5 Mg/0.5 Ml Inh INHALATION 2.5 mg Q6HRT MALU Administration Amlodipine Besylate 10 mg 11/21/20 09:00 Amlodipine Besylate 5 Mg Tablet PO QAM MALU Bisacodyl 10 mg 11/11/20 10:13 Bisacodyl 10 Mg Suppository
[2020-11-20 11:02] LABS: Anion Gap 12 mmol/L (8-16); Blood Urea Nitrogen 22 mg/dL (7-17); Calcium 9.2 mg/dL (8.4-10.2); Carbon Dioxide 28 mmol/L (22-30); Chloride 99 mmol/L (98-107); Estimated Glomerular Filt Rate > 60; Glucose 199 mg/dL (65-110); Potassium 3.4 mmol/L (3.4-5.0); Sodium 139 mmol/L (137-145)
[2020-11-20 11:57] LABS: Glucose Point of Care 230 mg/dl (65-105)
--- NOTE | 2020-11-20 15:52 | PM.DS ---
DS: Admitting Diagnosis Discharge Date 3:56 p.m. on November 20, 2020 Admitting Diagnosis Respiratory failure DS: Summary Hospital Course Hospital Course: See discharge summary below Time Spent with Patient Time attestation: Total time spent providing and/or coordinating discharge services: START OF DOCTOR BOUBACAR?S DISCHARGE SUMMARY Date of Admission: November 07, 2020 Date of Discharge: 3:54 p.m. Primary Diagnosis: On November 20, 2020 respiratory failure, status post intubations after 2020, status post extubation November 15, 2020. Respiratory failure bleed be secondary to patient's history of vaping Secondary Diagnosis: Depression Anxiety Tobacco abuse via vaping GERD Hypertension Obesity Obstructive sleep apnea Asthma Diabetes Hypothyroidism Urinary tract infection Funguria Consultations: Freelance Programmer/App Developer, pulmonology, Nephrology Disposition: The patient will be advised follow-up with primary care physician 5-7 days post discharge for post hospitalization evaluation Discharge Medications: Prozac 20 mg p.o. daily Lisinopril 10 mg p.o. daily Synthroid 75 mg p.o. daily Norvasc 10 mg p.o. daily Insulin glargine 25 units subcutaneously daily END OF DOCTOR BOUBACAR?S DISCHARGE SUMMARY DS: Data Data Completed and Pending Labs on day of discharge: Labs from last 24 hours 11/20/20 11/20/20 11/20/20 11:51 09:45 09:45 WBC 12.2 H RBC 4.51 Hgb 12.3 Hct 38.8 MCV 86.0 MCH 27.3 MCHC 31.7 L RDW 13.0 Plt Count 346 MPV 11.9 H Sodium 139 Potassium 3.4 Chloride 99 Carbon Dioxide 28 Anion Gap 12 BUN 22 H D Creatinine 0.60 L Estim Creat Clear Calc Not Reportable Estimated GFR > 60 Glucose 199 H POC Capillary Glucose 230 H Calcium 9.2 Hypersensi Pneumonitis 11/20/20 11/19/20 11/19/20 08:02 21:05 16:38 WBC RBC Hgb Hct MCV MCH MCHC RDW Plt Count MPV Sodium Potassium Chloride Carbon Dioxide Anion Gap BUN Creatinine Estim Creat Clear Calc Estimated GFR Glucose POC Capillary Glucose 152 H 213 H 214 H Calcium Hypersensi Pneumonitis 11/08/20 12:07 WBC RBC Hgb Hct MCV MCH MCHC RDW Plt Count MPV Sodium Potassium Chloride Carbon Dioxide Anion Gap BUN Creatinine Estim Creat Clear Calc Estimated GFR Glucose POC Capillary Glucose Calcium Hypersensi Pneumonitis Negative Discharge Plan Discharge Consulting providers: Crystal Conner ; [place] ; Donald Newell Discharging Clinician: boubacar Patient Disposition: SNF Activity: as tolerated Diet: diabetic and low sodium Patient Instructions: Levofloxacin (By mouth), How to Stop Smoking (GEN), Pain Management (DC), Hypoxia (GEN), Pneumonia (DC), PICC (Peripherally Inserted Central Catheter) (GEN), Acute Respiratory Failure (GEN) Stand Alone Forms: General Discharge Information Discharge Medications: New Lantus U-100 Insulin 100 unit/mL Solution 25 unit subcut QAM Qty: 10 RF: 0 amlodipine [Norvasc] 5 mg Tablet 10 mg PO QAM Qty: 60 RF: 0 Continued levothyroxine 75 mcg tablet 75 mcg PO DAILY RF: 0 lisinopril 10 mg tablet 10 mg PO DAILY RF: 0 fluoxetine 20 mg capsule 20 mg PO DAILY RF: 0 Discontinued metformin 500 mg tablet 500 mg PO DAILY RF: 0 benzonatate 200 mg capsule 200 mg PO TID PRN (Reason: cough) Qty: 21 RF: 0 Date of admission: 11/07/20 13:37 Primary Care Provider: DoriCarmen Admitting Provider: Tono Frank Attending physician on admission: Tono Frank Condition: Serious Quality VTE Prophylaxis VTE prophylaxis: pharmacologic ordered
[2020-11-20 16:51] LABS: Glucose Point of Care 220 mg/dl (65-105)
[2020-11-20] MEDS: INSULIN ASPART (*BKC) 100 UNITS/ML SUB-Q (17:02)
[2020-11-20 21:35] LABS: Glucose Point of Care 207 mg/dl (65-105)
[2020-11-21] VITALS (7 sets, daily range): BP systolic 135–144; BP diastolic 67–90; PULSE 81–87; RESP 16–20; TEMP 35.7–36.2; O2SAT 97–100
[2020-11-21] MEDS: IPRATROPIUM BR 0.02% INH SOLN 0.5 MG/2.5 ML VIAL INHALATION ×4 (01:49→19:53)
[2020-11-21] MEDS: ALBUTEROL SULFATE NEB 2.5 MG/0.5 ML INH INHALATION ×4 (01:49→19:53)
[2020-11-21 06:06] LABS: Hematocrit 36.4 % (37.0-47.0); Hemoglobin 11.5 g/dL (12.0-15.0); Mean Corpuscular HGB Conc 31.6 g/dl (32-36); Mean Corpuscular Hemoglobin 27.1 pg (26-34); Mean Corpuscular Volume 85.8 fl (80-100); Mean Platelet Volume 11.8 fl (7.4-10.4); Platelet Count Result 346 k/mm3 (150-375); Red Blood Count 4.24 M/mm3 (4.2-5.4); Red Cell Distribution Width 13.2 % (11.5-14.5); White Blood Count 10.6 K/mm3 (4.5-10.0)
[2020-11-21] MEDS: LEVOTHYROXINE SODIUM 75 MCG TABLET PO (06:14)
[2020-11-21 06:26] LABS: Anion Gap 9 mmol/L (8-16); Blood Urea Nitrogen 17 mg/dL (7-17); Calcium 8.7 mg/dL (8.4-10.2); Carbon Dioxide 29 mmol/L (22-30); Chloride 100 mmol/L (98-107); Estimated Glomerular Filt Rate > 60; Glucose 182 mg/dL (65-110); Potassium 2.9 mmol/L (3.4-5.0); Sodium 138 mmol/L (137-145)
[2020-11-21 08:25] LABS: Glucose Point of Care 176 mg/dl (65-105)
--- NOTE | 2020-11-21 08:27 | PM.IMPN ---
Progress Note: A&P Additional Plan START OF DOCTOR CECE?S PROGRESS NOTE Subjective: The patient offers no complaints at this time. She denies fever, rigors, nausea, vomiting, cough, wheeze, abdominal pain, chest pain, dyspnea, or any other constitutional complaints. The patient expresses some frustration because she feels as though she is having diarrhea/unable to control her bowels although she denies bilateral extremity paresthesias/anesthesia/myasthenia. I have explained to the patient her current medical condition and plan of care and answered all the questions Objective: General: -Alert -No acute distress -No dyspnea -No tachypnea -morbidly obese Heart: -Regular rate -Regular rhythm -No murmurs -No gallops -No rubs Lungs: -No wheeze -No rhonchi -No rales Abdomen: -Normal bowel sounds in all four quadrants -No rebound -No guarding -No tenderness Extremities: -2/4 pulse in all four extremities -No clubbing -No cyanosis -No edema Additional Details / Additional Findings / Exceptions / Miscellaneous: The patient has 5/5 bilateral plantar and dorsiflexion strength. Toes are bilateral lower extremities are equal and intact Pertinent Laboratory Results / Pertinent Radiology Results / Pertinent Diagnostic Results / Pertinent Vital Signs: Vital signs stable. White blood count 10.6, hemoglobin 9.5, potassium 2.9 Assessment / Plan: Respiratory failure, status post intubation Center 2020, status post extubation November 15, 2020. Overall her studies have been unremarkable and it is believed that her respiratory failure may have been caused by her history of vaping. Albuterol 2.5 mg nebulized q.6 hours plus ipratropium 0.5 mg nebulized q.6 hours plus budesonide 0.5 mg inhaled b.i.d. Depression. Prozac 20 mg p.o. daily Anxiety Tobacco abuse via vaping. Patient becomes regarding cessation GERD Hypertension. Norvasc 10 mg p.o. daily Obesity. Patient counseled regarding lifestyle modification Obstructive sleep apnea. CPAP/BiPAP: Okay to use home device and/or pressure when sleeping Asthma Diabetes. Will check fingerstick glucose q.a.c. and HS and provide insulin sliding scale plus insulin glargine 25 units subcutaneously daily Hypothyroidism thyroid appeared to torsemide 5 mg p.o. daily Urinary tract infection. Will check UA with micro Funguria Anemia. Will monitor hemoglobin level intermittently. Check serum ferritin, iron panel, fecal occult blood Hypokalemia. Monitor potassium levels intermittently supplements as necessary Acute renal insufficiency, resolved DVT prophylaxis. Bilateral CT Disposition: An attempt was made at discharging the patient on the evening of November 20, 2020 however nursing staff has notified me that the accepting facility was awaiting a special bed for the patient. The patient is medically stable. I will attempt to discharge her again on this day of November 21, 2020 END OF DOCTOR CECE?S PROGRESS NOTE Subjective Date/time seen: 11/21/20 08:27 Objective Data Vital Signs Vital Signs: Vital Signs - 24 hr 11/20/20 13:44 11/20/20 13:53 11/20/20 14:00 Temperature 97.7 F Pulse Rate 72 76 91 Respiratory Rate 18 18 16 Blood Pressure 149/69 H Pulse Oximetry 99 11/20/20 20:24 11/20/20 20:27 11/20/20 20:33 Temperature Pulse Rate 92 89 Respiratory Rate 18 18 Blood Pressure Pulse Oximetry 94 11/20/20 20:58 11/21/20 01:50 11/21/20 01:57 Temperature 97.4 F L Pulse Rate 92 86 82 Respiratory Rate 20 18 18 Blood Pressure 152/70 H Pulse Oximetry 97 11/21/20 06:14 Temperature 97.1 F L Pulse Rate 87 Respiratory Rate 18 Blood Pressure 139/90 Pulse Oximetry 97 Intake/Output Intake/Output: Intake & Output 11/18/20 11/19/20 11/20/20 11/21/20 23:59 23:59 23:59 23:59 Intake Total 440 1280 1370 250 Output Total 1425 1300 Balance -985 -20 1370 250 Meds/Results Medications
[2020-11-21] MEDS: amLODIPine BESYLATE 5 MG TABLET 10 MG PO (08:50)
[2020-11-21] MEDS: FLUoxetine HCL 20 MG CAPSULE PO (08:51)
[2020-11-21] MEDS: INSULIN GLARGINE (*BKC) 100 UNITS/ML 25 UNITS SUB-Q (08:51)
[2020-11-21] MEDS: POTASSIUM CHLORIDE 20 MEQ TABLET.ER 40 MEQ PO ×2 (09:53→11:42)
[2020-11-21 10:41] LABS: Iron 19 ug/dL (37-170)
[2020-11-21 10:55] LABS: Percent Iron Saturation 8 % (20-50)
--- NOTE | 2020-11-21 11:07 | PCOTNOTE ---
Attempted to see pt for Occupational therapy tx in the AM, however, pt refused stating I'm exhausted... RN was made aware and states that it was fine since the pt is being transferred today sometime. If pt is here tomorrow, will continue per poc duration/frequency.
[2020-11-21] MEDS: BUDESONIDE RESPULE NEB 0.5 MG/2 ML AMP INHALATION ×2 (11:39→19:53)
--- NOTE | 2020-11-21 11:39 | PCRCNOTE ---
Window of time for administration has passed. See next scheduled administration.
[2020-11-21] MEDS: TOLNAFTATE 1% POWDER 45 GM BTL 1 APPLIC TOPICAL ×2 (11:43→20:50)
[2020-11-21] MEDS: INSULIN ASPART (*BKC) 100 UNITS/ML SUB-Q ×2 (12:04→16:40)
[2020-11-21 12:17] LABS: Glucose Point of Care 227 mg/dl (65-105)
--- NOTE | 2020-11-21 14:57 | PCPTNOTE ---
pt declined PT today stating she was discharging and RN confirmed.
[2020-11-21 16:41] LABS: Glucose Point of Care 201 mg/dl (65-105)
--- NOTE | 2020-11-21 17:23 | PCRCNOTE ---
Window of time for administration has passed. See next scheduled administration.
[2020-11-21 20:58] LABS: Glucose Point of Care 235 mg/dl (65-105)
[2020-11-22] VITALS (11 sets, daily range): BP systolic 148–161; BP diastolic 73–95; PULSE 72–91; RESP 16–20; TEMP 36.2–36.6; O2SAT 96–98
[2020-11-22] MEDS: ALBUTEROL SULFATE NEB 2.5 MG/0.5 ML INH INHALATION ×4 (03:01→20:02)
[2020-11-22] MEDS: IPRATROPIUM BR 0.02% INH SOLN 0.5 MG/2.5 ML VIAL INHALATION ×4 (03:01→20:02)
[2020-11-22 05:55] LABS: Hematocrit 36.6 % (37.0-47.0); Hemoglobin 11.4 g/dL (12.0-15.0); Mean Corpuscular HGB Conc 31.1 g/dl (32-36); Mean Corpuscular Hemoglobin 26.9 pg (26-34); Mean Corpuscular Volume 86.3 fl (80-100); Mean Platelet Volume 11.8 fl (7.4-10.4); Platelet Count Result 332 k/mm3 (150-375); Red Blood Count 4.24 M/mm3 (4.2-5.4); Red Cell Distribution Width 13.2 % (11.5-14.5); White Blood Count 9.5 K/mm3 (4.5-10.0)
[2020-11-22] MEDS: LEVOTHYROXINE SODIUM 75 MCG TABLET PO (06:04)
[2020-11-22 06:06] LABS: Anion Gap 10 mmol/L (8-16); Blood Urea Nitrogen 15 mg/dL (7-17); Carbon Dioxide 28 mmol/L (22-30); Chloride 101 mmol/L (98-107); Estimated Glomerular Filt Rate > 60; Glucose 172 mg/dL (65-110); Potassium 2.8 mmol/L (3.4-5.0); Sodium 139 mmol/L (137-145)
[2020-11-22] MEDS: POTASSIUM CHLORIDE 20 MEQ PACKET (FOR LIQUID) 80 MEQ PO (07:38)
[2020-11-22] MEDS: BUDESONIDE RESPULE NEB 0.5 MG/2 ML AMP INHALATION ×2 (07:55→20:02)
[2020-11-22] MEDS: amLODIPine BESYLATE 5 MG TABLET 10 MG PO (08:35)
[2020-11-22] MEDS: FLUoxetine HCL 20 MG CAPSULE PO (08:35)
[2020-11-22] MEDS: INSULIN GLARGINE (*BKC) 100 UNITS/ML 25 UNITS SUB-Q (08:39)
[2020-11-22] MEDS: TOLNAFTATE 1% POWDER 45 GM BTL 1 APPLIC TOPICAL ×2 (08:41→20:41)
--- NOTE | 2020-11-22 09:29 | PM.IMPN ---
Progress Note: A&P Additional Plan START OF DOCTOR CECE?S PROGRESS NOTE Subjective: The patient sources no complaints at this time. Overnight she has fever, rigors, nausea, vomiting, cough, wheeze, abdominal pain, chest pain, dyspnea, diarrhea, or any other constitutional complaints. I have explained to the patient her current medical condition plan of care and answered questions Objective: General: -Alert -No acute distress -No dyspnea -No tachypnea -morbidly obese Heart: -Regular rate -Regular rhythm -No murmurs -No gallops -No rubs Lungs: -No wheeze -No rhonchi -No rales Abdomen: -Normal bowel sounds in all four quadrants -No rebound -No guarding -No tenderness Extremities: -2/4 pulse in all four extremities -No clubbing -No cyanosis -No edema Additional Details / Additional Findings / Exceptions / Miscellaneous: The patient has 5/5 bilateral plantar and dorsiflexion strength. Toes are bilateral lower extremities are equal and intact Pertinent Laboratory Results / Pertinent Radiology Results / Pertinent Diagnostic Results / Pertinent Vital Signs: Vital signs stable. White blood count 10.6, hemoglobin 9.5, potassium 2.9 Assessment / Plan: Respiratory failure, status post intubation Center 2020, status post extubation November 15, 2020. Overall her studies have been unremarkable and it is believed that her respiratory failure may have been caused by her history of vaping. Albuterol 2.5 mg nebulized q.6 hours plus ipratropium 0.5 mg nebulized q.6 hours plus budesonide 0.5 mg inhaled b.i.d. Depression. Prozac 20 mg p.o. daily Anxiety Tobacco abuse via vaping. Patient becomes regarding cessation GERD Hypertension. Norvasc 10 mg p.o. daily Obesity. Patient counseled regarding lifestyle modification Obstructive sleep apnea. CPAP/BiPAP: Okay to use home device and/or pressure when sleeping Asthma Diabetes. Will check fingerstick glucose q.a.c. and HS and provide insulin sliding scale plus insulin glargine 25 units subcutaneously daily Hypothyroidism thyroid appeared to torsemide 5 mg p.o. daily Urinary tract infection. Will check UA with micro Funguria Anemia. Will monitor hemoglobin level intermittently. Check serum ferritin, iron panel, fecal occult blood Hypokalemia. K-Dur 40 mEq p.o. b.i.d. Acute renal insufficiency, resolved DVT prophylaxis. Bilateral CT Disposition: An attempt was made on both November 20 and November 21, 2020 to discharge the patient to the rehabilitation facility. I have been notified by Case Management/social Work that the accepting facility had a change mind. I will await acceptance at a new facility for discharge of this patient END OF DOCTOR CECE?S PROGRESS NOTE Subjective Date/time seen: 11/22/20 09:29 Objective Data Vital Signs Vital Signs: Vital Signs - 24 hr 11/21/20 14:00 11/21/20 19:53 11/21/20 20:05 Temperature 96.2 F L Pulse Rate 81 87 85 Respiratory Rate 20 18 18 Blood Pressure 144/67 H Pulse Oximetry 98 11/21/20 20:33 11/22/20 03:01 11/22/20 03:08 Temperature 96.4 F L Pulse Rate 82 76 74 Respiratory Rate 16 18 18 Blood Pressure 135/77 Pulse Oximetry 100 11/22/20 04:21 11/22/20 07:55 11/22/20 08:10 Temperature 97.2 F L Pulse Rate 87 75 72 Respiratory Rate 18 16 16 Blood Pressure 159/73 H Pulse Oximetry 96 Intake/Output Intake/Output: Intake & Output 11/19/20 11/20/20 11/21/20 11/22/20 23:59 23:59 23:59 23:59 Intake Total 1280 1370 370 100 Output Total 1300 Balance -20 1370 370 100 Meds/Results Medications: Active Medications Generic Name Dose Route Start Last Admin Trade Name Freq PRN Reason Stop Dose Admin Acetaminophen 650 mg 11/15/20 14:27 11/20/20 20:58 Acetaminophen 325 Mg Tablet PO 650 mg Q4H PRN Administration Headache, Fever or pain Albuterol 2.5 mg 11/07/20 20:00 11/22/20 07:55 Albuterol Sulfate
[2020-11-22] MEDS: INSULIN ASPART (*BKC) 100 UNITS/ML SUB-Q ×2 (11:47→16:58)
[2020-11-22 12:41] LABS: Glucose Point of Care 218 mg/dl (65-105)
[2020-11-22 14:06] LABS: IFOB Positive Control Positive; Immunochemical Fecal Occult Bl Negative (N)
--- NOTE | 2020-11-22 14:06 | PC.NURSE ---
Patient requested that therapy come back to see her. Nurse left a message. Earlier she was upset and crying unable to participate, even though she was encouraged to. Patient told to do what ever exercises therapy has shown her in her bed to keep up her strength.
[2020-11-22 17:09] LABS: Glucose Point of Care 277 mg/dl (65-105)
[2020-11-22] MEDS: POTASSIUM CHLORIDE 20 MEQ PACKET (FOR LIQUID) 40 MEQ PO (17:26)
[2020-11-22 22:43] LABS: Glucose Point of Care 269 mg/dl (65-105)
[2020-11-23] VITALS (10 sets, daily range): BP systolic 143–151; BP diastolic 74–92; PULSE 78–94; RESP 16–24; TEMP 36.1–36.7; O2SAT 97–99
[2020-11-23 06:02] LABS: Hematocrit 37.4 % (37.0-47.0); Hemoglobin 11.8 g/dL (12.0-15.0); Mean Corpuscular HGB Conc 31.6 g/dl (32-36); Mean Corpuscular Hemoglobin 27.1 pg (26-34); Mean Corpuscular Volume 85.8 fl (80-100); Mean Platelet Volume 11.6 fl (7.4-10.4); Platelet Count Result 334 k/mm3 (150-375); Red Blood Count 4.36 M/mm3 (4.2-5.4); Red Cell Distribution Width 13.1 % (11.5-14.5); White Blood Count 8.7 K/mm3 (4.5-10.0)
[2020-11-23] MEDS: LEVOTHYROXINE SODIUM 75 MCG TABLET PO (06:05)
[2020-11-23 06:15] LABS: Anion Gap 8 mmol/L (8-16); Blood Urea Nitrogen 12 mg/dL (7-17); Calcium 8.9 mg/dL (8.4-10.2); Carbon Dioxide 26 mmol/L (22-30); Chloride 103 mmol/L (98-107); Estimated Glomerular Filt Rate > 60; Glucose 172 mg/dL (65-110); Magnesium 1.6 mg/dL (1.6-2.3); Potassium 3.6 mmol/L (3.4-5.0); Sodium 137 mmol/L (137-145)
[2020-11-23] MEDS: ALBUTEROL SULFATE NEB 2.5 MG/0.5 ML INH INHALATION ×3 (07:48→20:02)
[2020-11-23] MEDS: BUDESONIDE RESPULE NEB 0.5 MG/2 ML AMP INHALATION ×2 (07:48→20:02)
[2020-11-23] MEDS: IPRATROPIUM BR 0.02% INH SOLN 0.5 MG/2.5 ML VIAL INHALATION ×3 (07:49→20:02)
--- NOTE | 2020-11-23 08:20 | PM.IMPN ---
Progress Note: A&P Additional Plan START OF DOCTOR CECE?S PROGRESS NOTE Subjective: The patient complains of diarrhea. Aside from that she endorses no complaints. She denies fever, rigors, nausea, vomiting, cough, wheeze, abdominal pain, chest pain, dyspnea, or any other constitutional complaints. I explained to the patient her current medical condition and plan of care I have answered all her questions Objective: General: -Alert -No acute distress -No dyspnea -No tachypnea -morbidly obese Heart: -Regular rate -Regular rhythm -No murmurs -No gallops -No rubs Lungs: -No wheeze -No rhonchi -No rales Abdomen: -Normal bowel sounds in all four quadrants -No rebound -No guarding -No tenderness Extremities: -2/4 pulse in all four extremities -No clubbing -No cyanosis -No edema Additional Details / Additional Findings / Exceptions / Miscellaneous: The patient has 5/5 bilateral plantar and dorsiflexion strength. Toes are bilateral lower extremities are equal and intact Pertinent Laboratory Results / Pertinent Radiology Results / Pertinent Diagnostic Results / Pertinent Vital Signs: Vital signs stable Assessment / Plan: Respiratory failure, status post intubation Center 2020, status post extubation November 15, 2020. Overall her studies have been unremarkable and it is believed that her respiratory failure may have been caused by her history of vaping. Albuterol 2.5 mg nebulized q.6 hours plus ipratropium 0.5 mg nebulized q.6 hours plus budesonide 0.5 mg inhaled b.i.d. Diarrhea. Check stool C diff, stool showed WBC, stool culture, stool ova and parasite Depression. Prozac 20 mg p.o. daily Anxiety Tobacco abuse via vaping. Patient becomes regarding cessation GERD Hypertension. Norvasc 10 mg p.o. daily Obesity. Patient counseled regarding lifestyle modification Obstructive sleep apnea. CPAP/BiPAP: Okay to use home device and/or pressure when sleeping Asthma Diabetes. Will check fingerstick glucose q.a.c. and HS and provide insulin sliding scale plus insulin glargine 25 units subcutaneously daily Hypothyroidism thyroid appeared to torsemide 5 mg p.o. daily Urinary tract infection. Will check UA with micro Funguria Iron deficiency Anemia. Will monitor hemoglobin level intermittently. Ferrous sulfate 325 mg p.o. b.i.d. plus vitamin-C 500 mg p.o. daily Hypokalemia. K-Dur 40 mEq p.o. b.i.d. Acute renal insufficiency, resolved DVT prophylaxis. Bilateral CT Disposition: Patient medically stable for discharge. I will discuss with case management/social work as we are awaiting placement END OF DOCTOR CECE?S PROGRESS NOTE Subjective Date/time seen: 11/23/20 08:20 Objective Data Vital Signs Vital Signs: Vital Signs - 24 hr 11/22/20 13:43 11/22/20 13:53 11/22/20 14:00 Temperature 97.8 F Pulse Rate 77 75 91 Respiratory Rate 16 16 Blood Pressure 148/75 H Pulse Oximetry 97 11/22/20 20:02 11/22/20 20:10 11/22/20 21:42 Temperature 97.1 F L Pulse Rate 78 77 75 Respiratory Rate 16 16 20 Blood Pressure 161/95 H Pulse Oximetry 98 96 11/23/20 06:00 11/23/20 07:49 11/23/20 07:52 Temperature 98.1 F Pulse Rate 78 90 Respiratory Rate 24 H 16 Blood Pressure 151/76 H Pulse Oximetry 99 97 11/23/20 08:08 Temperature Pulse Rate 92 Respiratory Rate 16 Blood Pressure Pulse Oximetry Intake/Output Intake/Output: Intake & Output 11/20/20 11/21/20 11/22/20 11/23/20 23:59 23:59 23:59 23:59 Intake Total 1370 370 340 200 Balance 1370 370 340 200 Meds/Results Medications: Active Medications Generic Name Dose Route Start Last Admin Trade Name Freq PRN Reason Stop Dose Admin Acetaminophen 650 mg 11/15/20 14:27 11/20/20 20:58 Acetaminophen 325 Mg Tablet PO 650 mg Q4H PRN Administration Headache, Fever or pain Albuterol 2.5 mg 11/07/20 20:00 11/23/20 07:48 Albuterol Sulfate Neb 2
[2020-11-23] MEDS: amLODIPine BESYLATE 5 MG TABLET 10 MG PO (09:13)
[2020-11-23] MEDS: FLUoxetine HCL 20 MG CAPSULE PO (09:13)
[2020-11-23] MEDS: FERROUS SULFATE 324 MG TABLET PO ×2 (09:13→17:54)
[2020-11-23] MEDS: ASCORBIC ACID 500 MG TABLET PO (09:13)
[2020-11-23] MEDS: TOLNAFTATE 1% POWDER 45 GM BTL 1 APPLIC TOPICAL ×2 (09:14→20:29)
[2020-11-23] MEDS: POTASSIUM CHLORIDE 20 MEQ PACKET (FOR LIQUID) 40 MEQ PO ×2 (09:14→17:53)
[2020-11-23 09:23] LABS: Glucose Point of Care 170 mg/dl (65-105)
[2020-11-23 09:23] LABS: Glucose Point of Care 181 mg/dl (65-105)
[2020-11-23] MEDS: INSULIN GLARGINE (*BKC) 100 UNITS/ML 25 UNITS SUB-Q (09:27)
[2020-11-23 12:09] LABS: Glucose Point of Care 208 mg/dl (65-105)
[2020-11-23] MEDS: INSULIN ASPART (*BKC) 100 UNITS/ML SUB-Q (12:49)
--- NOTE | 2020-11-23 17:46 | ECG_ITS ---
Measurements Intervals [place] Rate: 84 P: 18 AL: 130 QRS: 23 QRSD: 97 T: -5 QT: 367 QTc: 435 Interpretive Statements SINUS RHYTHM DELAYED PRECORDIAL R/S TRANSITION CONSIDER INFERIOR INFARCT, AGE INDETERMINATE BASELINE ARTIFACT- I, II, III, AVR, AVL, AVF, V1-V4 ABNORMAL ECG Electronically Signed On 11-23-2020 19:15:14 CDT by Goldy Iqbal D.O.
[2020-11-23] MEDS: ACETAMINOPHEN 325 MG TABLET 650 MG PO (17:52)
[2020-11-23] MEDS: MICONAZOLE NITRATE 2% CREAM 30 GM TUBE 1 APPLIC TOPICAL (17:54)
[2020-11-23 18:43] LABS: Glucose Point of Care 189 mg/dl (65-105)
[2020-11-23 18:50] LABS: Troponin I < 0.012 ng/mL (0.000-0.034)
[2020-11-23] MEDS: MICONAZOLE NITRATE 2% VAGINAL CREAM 45 GM TUBE 1 APPFUL VAGINAL (20:30)
[2020-11-23 20:47] LABS: Glucose Point of Care 180 mg/dl (65-105)
[2020-11-24] VITALS (11 sets, daily range): BP systolic 150–152; BP diastolic 80–93; PULSE 77–92; RESP 16–20; TEMP 36.1–36.9; O2SAT 97–100
[2020-11-24 00:40] LABS: Troponin I < 0.012 ng/mL (0.000-0.034)
[2020-11-24] MEDS: ALBUTEROL SULFATE NEB 2.5 MG/0.5 ML INH INHALATION ×4 (02:47→19:58)
[2020-11-24] MEDS: IPRATROPIUM BR 0.02% INH SOLN 0.5 MG/2.5 ML VIAL INHALATION ×4 (02:47→19:58)
[2020-11-24] MEDS: LEVOTHYROXINE SODIUM 75 MCG TABLET PO (06:29)
[2020-11-24] MEDS: FLUoxetine HCL 20 MG CAPSULE PO (08:28)
[2020-11-24] MEDS: FERROUS SULFATE 324 MG TABLET PO ×2 (08:29→18:51)
[2020-11-24] MEDS: amLODIPine BESYLATE 5 MG TABLET 10 MG PO (08:29)
[2020-11-24] MEDS: ASCORBIC ACID 500 MG TABLET PO (08:29)
[2020-11-24] MEDS: TOLNAFTATE 1% POWDER 45 GM BTL 1 APPLIC TOPICAL ×2 (08:30→21:06)
[2020-11-24] MEDS: MICONAZOLE NITRATE 2% VAGINAL CREAM 45 GM TUBE 1 APPFUL VAGINAL ×2 (08:30→21:06)
[2020-11-24] MEDS: INSULIN GLARGINE (*BKC) 100 UNITS/ML 25 UNITS SUB-Q (08:30)
[2020-11-24 09:09] LABS: Glucose Point of Care 163 mg/dl (65-105)
--- NOTE | 2020-11-24 09:12 | PM.IMPN ---
Progress Note: A&P Additional Plan START OF DOCTOR CECE?S PROGRESS NOTE Subjective: The patient indicates on the afternoon/evening of November 23, 2020 she had a singular episode of chest pain for which troponins were negative and EKG was unremarkable. Aside from that she endorses no complaints at the present time. She denies fever, rigors, nausea, vomiting, cough, wheeze, abdominal pain, chest pain, dyspnea. I have explained to the patient her current medical condition plan of care and I have answered all the questions Objective: General: -Alert -No acute distress -No dyspnea -No tachypnea -morbidly obese Heart: -Regular rate -Regular rhythm -No murmurs -No gallops -No rubs Lungs: -No wheeze -No rhonchi -No rales Abdomen: -Normal bowel sounds in all four quadrants -No rebound -No guarding -No tenderness Extremities: -2/4 pulse in all four extremities -No clubbing -No cyanosis -No edema Additional Details / Additional Findings / Exceptions / Miscellaneous: The patient has 5/5 bilateral plantar and dorsiflexion strength. Toes are bilateral lower extremities are equal and intact Pertinent Laboratory Results / Pertinent Radiology Results / Pertinent Diagnostic Results / Pertinent Vital Signs: Vital signs stable Assessment / Plan: Respiratory failure, status post intubation Center 2020, status post extubation November 15, 2020. Overall her studies have been unremarkable and it is believed that her respiratory failure may have been caused by her history of vaping. Albuterol 2.5 mg nebulized q.6 hours plus ipratropium 0.5 mg nebulized q.6 hours plus budesonide 0.5 mg inhaled b.i.d. Diarrhea. Check stool C diff, stool showed WBC, stool culture, stool ova and parasite Depression. Prozac 20 mg p.o. daily Anxiety Tobacco abuse via vaping. Patient becomes regarding cessation GERD Hypertension. Norvasc 10 mg p.o. daily plus hydralazine 25 mg p.o. t.i.d. Obesity. Patient counseled regarding lifestyle modification Obstructive sleep apnea. CPAP/BiPAP: Okay to use home device and/or pressure when sleeping Asthma Diabetes. Will check fingerstick glucose q.a.c. and HS and provide insulin sliding scale plus insulin glargine 25 units subcutaneously daily Hypothyroidism thyroid appeared to torsemide 5 mg p.o. daily Urinary tract infection. Will check UA with micro Funguria Iron deficiency Anemia. Will monitor hemoglobin level intermittently. Ferrous sulfate 325 mg p.o. b.i.d. plus vitamin-C 500 mg p.o. daily Hypokalemia. K-Dur 40 mEq p.o. b.i.d. Acute renal insufficiency, resolved DVT prophylaxis. Bilateral CT Disposition: Patient medically stable for discharge. I will discuss with case management/social work as we are awaiting placement END OF DOCTOR CECE?S PROGRESS NOTE Subjective Date/time seen: 11/24/20 09:12 Objective Data Vital Signs Vital Signs: Vital Signs - 24 hr 11/23/20 14:59 11/23/20 15:06 11/23/20 17:02 Temperature 97.9 F Pulse Rate 92 91 82 Respiratory Rate 16 16 20 Blood Pressure 143/74 H Pulse Oximetry 98 11/23/20 20:04 11/23/20 20:14 11/23/20 20:27 Temperature 97 F L Pulse Rate 90 92 94 Respiratory Rate 16 16 20 Blood Pressure 150/92 H Pulse Oximetry 99 11/24/20 01:36 11/24/20 02:47 11/24/20 06:28 Temperature 97.5 F L Pulse Rate 92 85 88 Respiratory Rate 16 16 18 Blood Pressure 152/93 H Pulse Oximetry 97 98 Intake/Output Intake/Output: Intake & Output 11/21/20 11/22/20 11/23/20 11/24/20 23:59 23:59 23:59 23:59 Intake Total 370 340 740 Balance 370 340 740 Meds/Results Medications: Active Medications Generic Name Dose Route Start Last Admin Trade Name Freq PRN Reason Stop Dose Admin Acetaminophen 650 mg 11/15/20 14:27 11/23/20 17:52 Acetaminophen 325 Mg Tablet PO 650 mg Q4H PRN Administration Headache, Fever or pain Albuterol 2.5 mg 11/07/20 20:00
[2020-11-24] MEDS: BUDESONIDE RESPULE NEB 0.5 MG/2 ML AMP INHALATION ×2 (10:29→19:58)
[2020-11-24] MEDS: ACETAMINOPHEN 325 MG TABLET 650 MG PO ×2 (10:32→18:51)
[2020-11-24] MEDS: POTASSIUM CHLORIDE 20 MEQ TABLET.ER 40 MEQ PO ×2 (10:33→18:51)
[2020-11-24] MEDS: hydrALAZINE HCL 25 MG TABLET PO ×3 (10:33→18:51)
[2020-11-24 12:40] LABS: Glucose Point of Care 173 mg/dl (65-105)
--- NOTE | 2020-11-24 12:55 | PCNFU ---
Nutrition Follow-Up Complete: Inadequate oral intake related to oral intubation as evidenced by NPO status. Goal: Patient to meet estimated nutritional needs. Patient is progressing towards goal. We will continue current goal. Pt current nutrition is DBCC. Last recorded weight is 208.5 kg, down from 224.1 kg on admit. Bowel Motility:+BM reported 11/24 Labs Reviewed:POC 173 Meds Noted: Norvasc, Lantus, Vit C, Prozac, KCL Additional Notes: Nutrition follow up. Patient has been consuming greater than 75% of a diabetic diet. Patient did refused a couple meals yesterday due to having some discomfort with stools.Skin: Ab-maceration, Groin-maceration. Agree with diet orders. Plans for discharge soon. Monitoring: Follow up every 5 days.
[2020-11-24 19:26] LABS: Glucose Point of Care 181 mg/dl (65-105)
[2020-11-24 21:39] LABS: Glucose Point of Care 162 mg/dl (65-105)
[2020-11-25] VITALS (12 sets, daily range): BP systolic 150–154; BP diastolic 78–91; PULSE 82–103; RESP 18–20; TEMP 36.1–37.2; O2SAT 96–100
[2020-11-25] MEDS: LEVOTHYROXINE SODIUM 75 MCG TABLET PO (05:25)
[2020-11-25] MEDS: ACETAMINOPHEN 325 MG TABLET 650 MG PO ×3 (05:32→14:17)
[2020-11-25] MEDS: BUDESONIDE RESPULE NEB 0.5 MG/2 ML AMP INHALATION ×2 (08:03→20:31)
[2020-11-25] MEDS: ALBUTEROL SULFATE NEB 2.5 MG/0.5 ML INH INHALATION ×2 (08:03→15:30)
[2020-11-25] MEDS: IPRATROPIUM BR 0.02% INH SOLN 0.5 MG/2.5 ML VIAL INHALATION ×2 (08:03→15:31)
[2020-11-25] MEDS: ASCORBIC ACID 500 MG TABLET PO (08:25)
[2020-11-25] MEDS: FERROUS SULFATE 324 MG TABLET PO ×2 (08:25→17:31)
[2020-11-25] MEDS: hydrALAZINE HCL 25 MG TABLET PO (08:25)
[2020-11-25] MEDS: FLUoxetine HCL 20 MG CAPSULE PO (08:25)
[2020-11-25] MEDS: amLODIPine BESYLATE 5 MG TABLET 10 MG PO (08:25)
[2020-11-25] MEDS: POTASSIUM CHLORIDE 20 MEQ TABLET.ER 40 MEQ PO ×2 (08:25→17:30)
[2020-11-25] MEDS: MICONAZOLE NITRATE 2% VAGINAL CREAM 45 GM TUBE 1 APPFUL VAGINAL ×2 (08:26→22:31)
[2020-11-25] MEDS: TOLNAFTATE 1% POWDER 45 GM BTL 1 APPLIC TOPICAL ×2 (08:26→22:31)
[2020-11-25] MEDS: INSULIN GLARGINE (*BKC) 100 UNITS/ML 25 UNITS SUB-Q (08:33)
--- NOTE | 2020-11-25 08:47 | PM.IMPN ---
Progress Note: A&P Additional Plan START OF DOCTOR CECE?S PROGRESS NOTE Subjective: The patient versus no complaints at this time. She denies fever, rigors, nausea, vomiting, cough, wheeze, abdominal pain, chest pain, dyspnea, or any other constitutional complaints. I have explained to the patient her current medical condition plan of care and I have answered all her questions Objective: General: -Alert -No acute distress -No dyspnea -No tachypnea -morbidly obese Heart: -Regular rate -Regular rhythm -No murmurs -No gallops -No rubs Lungs: -No wheeze -No rhonchi -No rales Abdomen: -Normal bowel sounds in all four quadrants -No rebound -No guarding -No tenderness Extremities: -2/4 pulse in all four extremities -No clubbing -No cyanosis -No edema Additional Details / Additional Findings / Exceptions / Miscellaneous: The patient has 5/5 bilateral plantar and dorsiflexion strength. Toes are bilateral lower extremities are equal and intact Pertinent Laboratory Results / Pertinent Radiology Results / Pertinent Diagnostic Results / Pertinent Vital Signs: Vital signs stable Assessment / Plan: Respiratory failure, status post intubation Center 2020, status post extubation November 15, 2020. Overall her studies have been unremarkable and it is believed that her respiratory failure may have been caused by her history of vaping. Albuterol 2.5 mg nebulized q.6 hours plus ipratropium 0.5 mg nebulized q.6 hours plus budesonide 0.5 mg inhaled b.i.d. Diarrhea. Check stool C diff, stool showed WBC, stool culture, stool ova and parasite Depression. Prozac 20 mg p.o. daily Anxiety Tobacco abuse via vaping. Patient becomes regarding cessation GERD Hypertension. Norvasc 10 mg p.o. daily plus hydralazine 75 mg p.o. t.i.d. Obesity. Patient counseled regarding lifestyle modification Obstructive sleep apnea. CPAP/BiPAP: Okay to use home device and/or pressure when sleeping Asthma Diabetes. Will check fingerstick glucose q.a.c. and HS and provide insulin sliding scale plus insulin glargine 25 units subcutaneously daily Hypothyroidism thyroid appeared to torsemide 5 mg p.o. daily Urinary tract infection. Will check UA with micro Funguria Iron deficiency Anemia. Will monitor hemoglobin level intermittently. Ferrous sulfate 325 mg p.o. b.i.d. plus vitamin-C 500 mg p.o. daily Hypokalemia. K-Dur 40 mEq p.o. b.i.d. Acute renal insufficiency, resolved DVT prophylaxis. Bilateral CT Disposition: Patient medically stable for discharge. I will discuss with case management/social work as we are awaiting placement END OF DOCTOR CECE?S PROGRESS NOTE Subjective Date/time seen: 11/25/20 08:47 Objective Data Vital Signs Vital Signs: Vital Signs - 24 hr 11/24/20 10:30 11/24/20 10:42 11/24/20 14:00 Temperature 98.5 F Pulse Rate 80 92 89 Respiratory Rate 16 16 18 Blood Pressure 150/91 H Pulse Oximetry 98 98 100 11/24/20 16:00 11/24/20 16:10 11/24/20 20:00 Temperature Pulse Rate 88 91 77 Respiratory Rate 16 18 18 Blood Pressure Pulse Oximetry 99 11/24/20 20:18 11/24/20 20:50 11/25/20 05:23 Temperature 97 F L 96.9 F L Pulse Rate 83 89 91 Respiratory Rate 18 20 18 Blood Pressure 151/80 H 150/85 H Pulse Oximetry 99 98 11/25/20 08:03 11/25/20 08:06 11/25/20 08:15 Temperature Pulse Rate 91 86 Respiratory Rate 18 18 Blood Pressure Pulse Oximetry 96 Intake/Output Intake/Output: Intake & Output 11/22/20 11/23/20 11/24/20 11/25/20 23:59 23:59 23:59 23:59 Intake Total 340 740 420 400 Balance 340 740 420 400 Meds/Results Medications: Active Medications Generic Name Dose Route Start Last Admin Trade Name Freq PRN Reason Stop Dose Admin Acetaminophen 650 mg 11/15/20 14:27 11/25/20 05:32 Acetaminophen 325 Mg Tablet PO 650 mg Q4H PRN Administration Headache, Fever or pain Albuterol 2.5 m
[2020-11-25 09:44] LABS: Glucose Point of Care 149 mg/dl (65-105)
[2020-11-25 12:02] LABS: Glucose Point of Care 170 mg/dl (65-105)
[2020-11-25] MEDS: hydrALAZINE HCL 25 MG TABLET 75 MG PO ×2 (14:18→17:31)
[2020-11-25 16:55] LABS: Glucose Point of Care 156 mg/dl (65-105)
[2020-11-25] MEDS: ALBUTEROL SULFATE (*SP) AEROSOL 1 PUFF 2 PUFF INHALATION (20:31)
[2020-11-25 22:34] LABS: Glucose Point of Care 161 mg/dl (65-105)
[2020-11-26] VITALS (7 sets, daily range): BP systolic 129–154; BP diastolic 74–90; PULSE 84–103; RESP 16–18; TEMP 36.7–36.8; O2SAT 94–100
[2020-11-26] MEDS: ALBUTEROL SULFATE (*SP) AEROSOL 1 PUFF 2 PUFF INHALATION ×2 (02:10→08:10)
[2020-11-26] MEDS: LEVOTHYROXINE SODIUM 75 MCG TABLET PO (06:24)
[2020-11-26 07:46] LABS: Glucose Point of Care 162 mg/dl (65-105)
--- NOTE | 2020-11-26 08:17 | PM.IMPN ---
Progress Note: A&P Additional Plan START OF DOCTOR CECE?S PROGRESS NOTE Subjective: Patient endorses no complaints at this time. She denies fever, rigors, nausea, vomiting, cough, wheeze, abdominal pain, chest pain, dyspnea, or any other concerns complaints at this time. I have explained to the patient her current medical condition plan of care and answered all her questions Objective: General: -Alert -No acute distress -No dyspnea -No tachypnea -morbidly obese Heart: -Regular rate -Regular rhythm -No murmurs -No gallops -No rubs Lungs: -No wheeze -No rhonchi -No rales Abdomen: -Normal bowel sounds in all four quadrants -No rebound -No guarding -No tenderness Extremities: -2/4 pulse in all four extremities -No clubbing -No cyanosis -No edema Additional Details / Additional Findings / Exceptions / Miscellaneous: The patient has 5/5 bilateral plantar and dorsiflexion strength. Toes are bilateral lower extremities are equal and intact Pertinent Laboratory Results / Pertinent Radiology Results / Pertinent Diagnostic Results / Pertinent Vital Signs: Vital signs stable Assessment / Plan: Respiratory failure, status post intubation Center 2020, status post extubation November 15, 2020. Overall her studies have been unremarkable and it is believed that her respiratory failure may have been caused by her history of vaping. Diarrhea. Check stool C diff, stool showed WBC, stool culture, stool ova and parasite Depression. Prozac 20 mg p.o. daily Anxiety Tobacco abuse via vaping. Patient becomes regarding cessation GERD Hypertension. Norvasc 10 mg p.o. daily plus hydralazine 100 mg p.o. t.i.d. plus metoprolol 25 mg p.o. b.i.d. Obesity. Patient counseled regarding lifestyle modification Obstructive sleep apnea. CPAP/BiPAP: Okay to use home device and/or pressure when sleeping Asthma Diabetes. Will check fingerstick glucose q.a.c. and HS and provide insulin sliding scale plus insulin glargine 25 units subcutaneously daily Hypothyroidism thyroid appeared to torsemide 5 mg p.o. daily Urinary tract infection. Will check UA with micro Funguria Iron deficiency Anemia. Will monitor hemoglobin level intermittently. Ferrous sulfate 325 mg p.o. b.i.d. plus vitamin-C 500 mg p.o. daily Hypokalemia. K-Dur 40 mEq p.o. b.i.d. Acute renal insufficiency, resolved DVT prophylaxis. Bilateral CT Disposition: Patient medically stable for discharge. I will discuss with case management/social work as we are awaiting placement END OF DOCTOR ZHAO?S PROGRESS NOTE Subjective Date/time seen: 11/26/20 08:17 Objective Data Vital Signs Vital Signs: Vital Signs - 24 hr 11/25/20 12:00 11/25/20 14:00 11/25/20 15:31 Temperature 98.9 F Pulse Rate 84 90 Respiratory Rate 20 18 Blood Pressure 154/78 H Pulse Oximetry 99 100 11/25/20 15:38 11/25/20 20:31 11/25/20 20:33 Temperature Pulse Rate 82 90 90 Respiratory Rate 18 18 18 Blood Pressure Pulse Oximetry 98 11/25/20 20:39 11/25/20 22:13 11/26/20 02:11 Temperature 97.7 F Pulse Rate 88 103 H 84 Respiratory Rate 18 18 18 Blood Pressure 153/91 H Pulse Oximetry 98 11/26/20 06:24 Temperature 98.3 F Pulse Rate 103 H Respiratory Rate 18 Blood Pressure 154/90 H Pulse Oximetry 99 Intake/Output Intake/Output: Intake & Output 11/23/20 11/24/20 11/25/20 11/26/20 23:59 23:59 23:59 23:59 Intake Total 044 392 4665 50 Balance 092 094 8556 50 Meds/Results Medications: Active Medications Generic Name Dose Route Start Last Admin Trade Name Freq PRN Reason Stop Dose Admin Acetaminophen 650 mg 11/15/20 14:27 11/25/20 14:17 Acetaminophen 325 Mg Tablet PO 650 mg Q4H PRN Administration Headache, Fever or pain Albuterol 2 puff 11/25/20 20:00 11/26/20 08:10 Albuterol Sulfate (*Sp) Aerosol 1 Puff INHALATION 2 puff Q6HRT MALU Administration Amlodipin
[2020-11-26] MEDS: POTASSIUM CHLORIDE 20 MEQ TABLET.ER 40 MEQ PO ×2 (08:29→16:46)
[2020-11-26] MEDS: ASCORBIC ACID 500 MG TABLET PO (08:29)
[2020-11-26] MEDS: FERROUS SULFATE 324 MG TABLET PO ×2 (08:30→16:46)
[2020-11-26] MEDS: amLODIPine BESYLATE 5 MG TABLET 10 MG PO (08:30)
[2020-11-26] MEDS: FLUoxetine HCL 20 MG CAPSULE PO (08:30)
[2020-11-26] MEDS: METOPROLOL TARTRATE 25 MG TABLET PO ×2 (09:26→20:34)
[2020-11-26] MEDS: hydrALAZINE HCL 50 MG TABLET 100 MG PO ×4 (09:27→16:46)
[2020-11-26] MEDS: INSULIN GLARGINE (*BKC) 100 UNITS/ML 25 UNITS SUB-Q (09:29)
[2020-11-26] MEDS: TOLNAFTATE 1% POWDER 45 GM BTL 1 APPLIC TOPICAL ×2 (09:48→20:36)
[2020-11-26] MEDS: MICONAZOLE NITRATE 2% VAGINAL CREAM 45 GM TUBE 1 APPFUL VAGINAL ×2 (09:48→20:36)
[2020-11-26] MEDS: ACETAMINOPHEN 325 MG TABLET 650 MG PO (11:08)
[2020-11-26 12:16] LABS: Glucose Point of Care 158 mg/dl (65-105)
--- NOTE | 2020-11-26 14:18 | PC.NURSE ---
Notified by lab that [facility] lost the specimen for cdiff.
[2020-11-26 16:44] LABS: Glucose Point of Care 210 mg/dl (65-105)
[2020-11-26] MEDS: INSULIN ASPART (*BKC) 100 UNITS/ML SUB-Q (16:49)
[2020-11-26 21:33] LABS: Glucose Point of Care 190 mg/dl (65-105)
[2020-11-27 04:07] VITALS: BP 143/87; PULSE 87; RESP 17; TEMP 36.8; O2SAT 99
[2020-11-27] MEDS: LEVOTHYROXINE SODIUM 75 MCG TABLET PO (05:59)
--- NOTE | 2020-11-27 07:45 | PM.IMPN ---
Progress Note: A&P Additional Plan START OF DOCTOR CECE?S PROGRESS NOTE Subjective: The patient versus no complaints at this time and she offers no complaints. She indicates that she would like to go home and I have explained to her that it probably would not be in her best interest given her we can condition. I have explained to the patient her current medical condition plan of care and I have answered all her questions Objective: General: -Alert -No acute distress -No dyspnea -No tachypnea -morbidly obese Heart: -Regular rate -Regular rhythm -No murmurs -No gallops -No rubs Lungs: -No wheeze -No rhonchi -No rales Abdomen: -Normal bowel sounds in all four quadrants -No rebound -No guarding -No tenderness Extremities: -2/4 pulse in all four extremities -No clubbing -No cyanosis -No edema Additional Details / Additional Findings / Exceptions / Miscellaneous: Pertinent Laboratory Results / Pertinent Radiology Results / Pertinent Diagnostic Results / Pertinent Vital Signs: Blood pressure 143/87 Assessment / Plan: Respiratory failure, status post intubation Center 2020, status post extubation November 15, 2020. Overall her studies have been unremarkable and it is believed that her respiratory failure may have been caused by her history of vaping. Diarrhea. Check stool C diff, stool showed WBC, stool culture, stool ova and parasite Depression. Prozac 20 mg p.o. daily Anxiety Tobacco abuse via vaping. Patient becomes regarding cessation GERD Hypertension. Norvasc 10 mg p.o. daily plus hydralazine 100 mg p.o. t.i.d. plus metoprolol 50 mg p.o. b.i.d. Obesity. Patient counseled regarding lifestyle modification Obstructive sleep apnea. CPAP/BiPAP: Okay to use home device and/or pressure when sleeping Asthma Diabetes. Will check fingerstick glucose q.a.c. and HS and provide insulin sliding scale plus insulin glargine 25 units subcutaneously daily Hypothyroidism thyroid appeared to torsemide 5 mg p.o. daily Urinary tract infection. Will check UA with micro Funguria Iron deficiency Anemia. Will monitor hemoglobin level intermittently. Ferrous sulfate 325 mg p.o. b.i.d. plus vitamin-C 500 mg p.o. daily Hypokalemia. K-Dur 40 mEq p.o. b.i.d. Acute renal insufficiency, resolved DVT prophylaxis. Bilateral CT Disposition: Patient medically stable for discharge. I will discuss with case management/social work as we are awaiting placement END OF DOCTOR CECE?S PROGRESS NOTE Subjective Date/time seen: 11/27/20 07:45 Objective Data Vital Signs Vital Signs: Vital Signs - 24 hr 11/26/20 09:26 11/26/20 16:09 11/26/20 19:43 Temperature 98.0 F 98.2 F Pulse Rate 84 87 97 Respiratory Rate 16 18 Blood Pressure 150/74 H 129/79 Pulse Oximetry 94 100 11/26/20 20:34 11/26/20 23:25 11/27/20 04:07 Temperature 98.2 F Pulse Rate 97 87 Respiratory Rate 17 Blood Pressure 143/87 H Pulse Oximetry 96 99 Intake/Output Intake/Output: Intake & Output 11/24/20 11/25/20 11/26/20 11/27/20 23:59 23:59 23:59 23:59 Intake Total 420 1920 530 100 Balance 420 1920 530 100 Meds/Results Medications: Active Medications Generic Name Dose Route Start Last Admin Trade Name Freq PRN Reason Stop Dose Admin Acetaminophen 650 mg 11/15/20 14:27 11/26/20 11:08 Acetaminophen 325 Mg Tablet PO 650 mg Q4H PRN Administration Headache, Fever or pain Amlodipine Besylate 10 mg 11/21/20 09:00 11/26/20 08:30 Amlodipine Besylate 5 Mg Tablet PO 10 mg QAM MALU Administration Ascorbic Acid 500 mg 11/23/20 09:00 11/26/20 08:29 Ascorbic Acid 500 Mg Tablet PO 500 mg DAILY MALU Administration Bisacodyl 10 mg 11/11/20 10:13 Bisacodyl 10 Mg Suppository RECTAL QAM PRN Constipation Dextrose 12.5 gm 11/07/20 14:49 Dextrose 50% 25 Gm/50 Ml Syringe IV PUSH PRN PRN Hypoglycemia Protocol
[2020-11-27] MEDS: ACETAMINOPHEN 325 MG TABLET 650 MG PO (08:10)
[2020-11-27] MEDS: ASCORBIC ACID 500 MG TABLET PO (08:11)
[2020-11-27] MEDS: FERROUS SULFATE 324 MG TABLET PO ×2 (08:11→16:52)
[2020-11-27] MEDS: FLUoxetine HCL 20 MG CAPSULE PO (08:11)
[2020-11-27] MEDS: POTASSIUM CHLORIDE 20 MEQ TABLET.ER 40 MEQ PO ×2 (08:11→16:52)
[2020-11-27] MEDS: amLODIPine BESYLATE 5 MG TABLET 10 MG PO (08:11)
[2020-11-27] MEDS: MICONAZOLE NITRATE 2% VAGINAL CREAM 45 GM TUBE 1 APPFUL VAGINAL (08:12)
[2020-11-27] MEDS: TOLNAFTATE 1% POWDER 45 GM BTL 1 APPLIC TOPICAL (08:12)
[2020-11-27] MEDS: hydrALAZINE HCL 50 MG TABLET 100 MG PO ×3 (08:12→16:52)
[2020-11-27 08:28] LABS: Glucose Point of Care 148 mg/dl (65-105)
[2020-11-27] MEDS: INSULIN GLARGINE (*BKC) 100 UNITS/ML 25 UNITS SUB-Q (08:58)
[2020-11-27 09:40] VITALS: PULSE 88
[2020-11-27] MEDS: METOPROLOL TARTRATE 50 MG TAB PO (09:40)
[2020-11-27 11:50] LABS: Glucose Point of Care 171 mg/dl (65-105)
--- NOTE | 2020-11-27 13:57 | PM.DS ---
DS: Admitting Diagnosis Discharge Date 1:59 p.m. on November 27, 2020 Admitting Diagnosis Respiratory failure, status post intubation November 07, 2020, status post extubation November 15, 2020 DS: Summary Hospital Course Hospital Course: See discharge summary Time Spent with Patient Time attestation: Total time spent providing and/or coordinating discharge services: Date of Admission: November 07, 2020 Date of Discharge: 1:57 p.m. on November 27, 2020 Primary Diagnosis: On November 20, 2020 respiratory failure, status post intubations after 2020, status post extubation November 15, 2020. Respiratory failure bleed be secondary to patient's history of vaping Secondary Diagnosis: Depression Anxiety Tobacco abuse via vaping GERD Hypertension Obesity Obstructive sleep apnea Asthma Diabetes Hypothyroidism Urinary tract infection Funguria Iron deficiency anemia Hypokalemia Acute renal insufficiency, resolved Consultations: Bow Maker Machine Tender, pulmonology, Nephrology Disposition: The patient will be advised follow-up with primary care physician 5-7 days post discharge for post hospitalization evaluation Discharge Medications: Prozac 20 mg p.o. daily Lisinopril 10 mg p.o. daily Metformin 500 mg p.o. daily Synthroid 75 mg p.o. daily K-Dur 40 mEq p.o. b.i.d. Metoprolol 50 mg p.o. q.12 hours Lantus 25 units subcutaneously daily Hydralazine 100 mg p.o. t.i.d. Ferrous sulfate 325 mg p.o. b.i.d. Vitamin-C 500 mg p.o. daily Norvasc 10 mg p.o. daily END OF DOCTOR CECE?S DISCHARGE SUMMARY DS: Data Data Completed and Pending Labs on day of discharge: Labs from last 24 hours 11/27/20 11/27/20 11/26/20 11:49 08:09 21:26 POC Capillary Glucose 171 H 148 H 190 H 11/26/20 16:33 POC Capillary Glucose 210 H Discharge Plan Discharge Consulting providers: Crystal Conner ; [place] ; Donald Newell Discharging Clinician: Dr. Ernst Patient Disposition: Inpatient Rehab Facility Activity: as tolerated Diet: diabetic and low sodium Discharge Instructions: The patient is advised to follow up with her primary care physician 5-7 days post discharge for post hospitalization evaluation Patient Instructions: Antibiotic Form, Levofloxacin (By mouth), How to Stop Smoking (GEN), Pain Management (DC), Hypoxia (GEN), Pneumonia (DC), PICC (Peripherally Inserted Central Catheter) (GEN), Acute Respiratory Failure (GEN) Stand Alone Forms: General Discharge Information Discharge Medications: New Lantus U-100 Insulin 100 unit/mL Solution 25 unit subcut QAM Qty: 10 RF: 0 amlodipine [Norvasc] 5 mg Tablet 10 mg PO QAM Qty: 60 RF: 0 ascorbic acid (vitamin C) [Vitamin C] 500 mg Tablet 500 mg PO DAILY Qty: 30 RF: 0 ferrous sulfate 325 mg (65 mg iron) Tablet 324 mg PO BIDWM Qty: 60 RF: 0 metoprolol tartrate 50 mg Tablet 50 mg PO Q12HR Qty: 60 RF: 0 hydralazine 50 mg Tablet 100 mg PO TID Qty: 180 RF: 0 potassium chloride [K-Tab] 20 mEq Tablet Extended Release 40 meq PO BIDWM Qty: 60 RF: 0 Continued levothyroxine 75 mcg tablet 75 mcg PO DAILY RF: 0 lisinopril 10 mg tablet 10 mg PO DAILY RF: 0 fluoxetine 20 mg capsule 20 mg PO DAILY RF: 0 Discontinued metformin 500 mg tablet 500 mg PO DAILY RF: 0 benzonatate 200 mg capsule 200 mg PO TID PRN (Reason: cough) Qty: 21 RF: 0 Date of admission: 11/07/20 13:37 Primary Care Provider: Robson,Carmen Loera Admitting Provider: Tono Frank Attending physician on admission: Tono Frank Condition: Serious Quality VTE Prophylaxis VTE prophylaxis: pharmacologic ordered
[2020-11-27 15:22] LABS: EDCOVIDSCREEN Negative (Negative)
[2020-11-27 16:55] LABS: Glucose Point of Care 177 mg/dl (65-105)
[2020-11-27 18:08] VITALS: BP 121/70; PULSE 115; RESP 20; TEMP 36.8; O2SAT 98
== END 2020-11-27 19:00 | DRG 130 ==
LOC: ANHED 12:48 → ANHICU 13:03 → ANH3MED 11-18 23:47 → ANHICU 11-30 12:09 → ANHIMU 11-30 12:09
PROVIDERS: Internal Medicine; Internal Medicine Nephrology; Internal Medicine Pulmonary Disease; Physician Assistant; Admitting Provider Internal Medicine; Emergency Provider Emergency Medicine; PCP Family Medicine; Visit Provider Internal Medicine
DX: J96.01 Acute respiratory failure with hypoxia (principal); Z20.822 Contact with and (suspected) exposure to COVID-19; N17.9 Acute kidney failure, unspecified; E66.2 Morbid (severe) obesity with alveolar hypoventilation; Z68.45 Body mass index [BMI] 70 or greater, adult; K21.9 Gastro-esophageal reflux disease without esophagitis; R07.9 Chest pain, unspecified; R93.89 Abnormal findings on diagnostic imaging of other specified body structures; I10 Essential (primary) hypertension; E03.9 Hypothyroidism, unspecified; E11.65 Type 2 diabetes mellitus with hyperglycemia; J45.909 Unspecified asthma, uncomplicated; F32.A Depression, unspecified; U07.0 Vaping-related disorder; F41.9 Anxiety disorder, unspecified; R57.9 Shock, unspecified; N39.0 Urinary tract infection, site not specified; B48.8 Other specified mycoses; R58 Hemorrhage, not elsewhere classified; D50.9 Iron deficiency anemia, unspecified; E87.6 Hypokalemia; R19.7 Diarrhea, unspecified; Z79.4 Long term (current) use of insulin; Z79.899 Other long term (current) drug therapy; Z87.891 Personal history of nicotine dependence
CPT/HCPCS: 36415; 36569; 36600; 71045; 76775; 80048; 80053; 80069; 80202; 81001; 81025; 82274; 82375; 82436; 82550; 82570; 82728; 82805; 82948; 83036; 83050; 83540; 83550; 83605; 83615; 83735; 83880; 84100; 84133; 84145; 84300; 84443; 84484; 85025; 85027; 85380; 85610; 85730; 85999; 86021; 86038; 86140; 86200; 86331; 86430; 86606; 86609; 87040; 87045; 87070; 87077; 87086; 87088; 87106; 87205; 87324; 87426; 87427; 87804; 89055; 92610; 93005; 93306; 93970; 93971; 94002; 94003; 94640; 96365; 96366; 96375; 97110; 97112; 97116; 97161; 97165; 97530; 97535; 99285; A9270; C1751; C9113; C9803; G0379; J0330; J0360; J0610; J1650; J1815; J1940; J1956; J2250; J2270; J2405; J2704; J2920; J2930; J3010; J3370; J3480; J7030; J7040; J7512; U0003; U0005

== ENCOUNTER 2020-11-28 11:17 | Emergency (ER) | payer OTHER, SELFPAY ==
--- NOTE | ~2020-11-28 | CT_ITS ---
EXAMINATION: CTA chest PE protocol DATE: 11/28/2020 17:23 INDICATION: Shortness of breath. Elevated d-dimer. TECHNIQUE: Computed tomography (CT) pulmonary angiogram of the chest was performed with 100 mL Omnipa que-350 intravenous contrast. Additional 3D reconstructions utilizing coronal maximum intensity proje ction (MIP) were performed. Automated exposure control and iterative reconstruction technique were em ployed. The dose-length product was 963.13 mGy-cm. COMPARISON: None FINDINGS: Good contrast opacification of the pulmonary arteries. There is mild streak artifact from dense contr ast in the superior vena cava and right atrium. Minimal scattered respiratory motion artifact which d oes not significantly limit evaluation. No pulmonary embolism. No pneumonia, pulmonary edema or other pulmonary infiltrates. No pleural effusion or pneumothorax. Heart size is normal. No pericardial eff usion. No pathologically enlarged thoracic lymphadenopathy. Chronic mild anterior wedging at T12. IMPRESSION: 1. No pulmonary embolus and no other acute cardiopulmonary disease. Reviewed, dictated and finalized at location A.
--- NOTE | ~2020-11-28 | XR_ITS ---
XR chest 1V portable DATE: 11/28/2020 13:11 INDICATION: Chest pain, chest tightness TECHNIQUE: Portable upright AP chest on 12/08/2020 at 1308 hours COMPARISON: 11/16/2020 portable AP chest FINDINGS: Normal heart size. No hilar or mediastinal enlargement. No pulmonary infiltrate or consolid ation, pleural effusion or pulmonary vascular congestion or pneumothorax. Included skeletal structure s are unremarkable except for degenerative spurring of the thoracic spine. IMPRESSION: No active cardiopulmonary disease Reviewed, dictated and finalized at location A.
[2020-11-28 11:25] VITALS: BP 97/49; PULSE 83; RESP 20; TEMP 35.8; O2SAT 100
--- NOTE | 2020-11-28 13:02 | ECG_ITS ---
Measurements Intervals [place] Rate: 87 P: 34 [place]: 140 QRS: 18 QRSD: 89 T: 0 QT: 381 QTc: 460 Interpretive Statements SINUS RHYTHM DELAYED PRECORDIAL R/S TRANSITION CONSIDER INFERIOR INFARCT, AGE INDETERMINATE BASELINE ARTIFACT- I, III, AVL, AVF ABNORMAL ECG Electronically Signed On 11-28-2020 13:58:00 CDT by Goldy Iqbal D.O.
[2020-11-28 13:45] VITALS: BP 86/52; PULSE 82; RESP 16; O2SAT 98
--- NOTE | 2020-11-28 14:44 | ED.CHESTPAIN ---
HPI - Chest Pain General Chief Complaint: Chest Pain <IFEOMA Pearson Last Filed: 11/28/20 20:27> Stated Complaint: CP <IFEOMA Pearson Last Filed: 11/28/20 20:27> Time Seen by Provider: 11/28/20 13:40 <IFEOMA Pearson Last Filed: 11/28/20 20:27> Source: patient <IFEOMA Pearson Last Filed: 11/28/20 20:27> Mode of arrival: ambulatory <IFEOMA Pearson Last Filed: 11/28/20 20:27> Limitations: no limitations <IFEOMA Pearson Last Filed: 11/28/20 20:27> History of Present Illness HPI narrative: This is a 30 year old female that presents to the ER for intermittent chest pain since this morning. Reports she had gotten up to use to the restroom. Reports she started to feel lightheaded. Reports she almost passed out. Reports since she has had intermittent chest pain that is sharp in nature. She is currently at [facility] after an extended hospital stay where she was intubated. Denies fever, cough or shortness of breath. <IFEOMA Pearson Last Filed: 11/28/20 20:27> Related Data Home Medications: Home Medications Medication Instructions Recorded Confirmed fluoxetine 20 mg PO DAILY 11/07/20 11/28/20 levothyroxine 75 mcg PO DAILY 11/07/20 11/28/20 lisinopril 10 mg PO DAILY 11/07/20 11/28/20 <IFEOMA Pearson Last Filed: 11/28/20 20:27> Allergies/Adverse Reactions: Allergies Allergy/AdvReac Type Severity Reaction Status Date / Time amoxicillin Allergy Unknown RASH, Verified 11/07/20 09:56 DIFFICULTY BREATHING <IFEOMA Pearson Last Filed: 11/28/20 20:27> Review of Systems Review of Systems: CONSTITUTIONAL: Denies fever CARDIOVASCULAR: Reports chest pain RESPIRATORY: Denies cough or dyspnea. <IFEOMA Pearson Last Filed: 11/28/20 20:27> All systems reviewed & are unremarkable except as noted in HPI and below <Dejah De Souza PA-C - Last Filed: 11/28/20 20:27> [facility] Past Medical History Medical History: Medical History Acute kidney injury Anxiety Asthma Depression Gastroesophageal reflux disease Hypertension Hypothyroidism Influenza (03/2019) Complicated by post influenza pneumonia requiring intubation and transfer to tertiary care facility for ECMO. Obstructive sleep apnea Intolerant to CPAP. Type 2 diabetes mellitus Vapes nicotine containing substance <Dejah De Souza PA-C - Last Filed: 11/28/20 20:27> Surgical History Surgical History: Surgical History No history of previous surgery <Dejah De Souza PA-C - Last Filed: 11/28/20 20:27> Family History Family History: Family History Mother Diabetes mellitus <Dejah De Souza PA-C - Last Filed: 11/28/20 20:27> Social History Social History: Social History Social History: Surrogate decision maker: Cindy Delgado, mother. Code status: Full code. Smoking packs per day: 1 Smoking cigarettes per day: 20.0 Smoking status: Current every day smoker Additional smoking assessment comments: 1 pack of cigarettes a day for over 10 years, now vapes. Alcohol intake: current Alcohol use details: Occasional alcohol use in moderation. Substance use: never Additional living arrangements comments: The patient lives in [place] with her mother. Additional occupation/education comments: Unemployed. Spiritual care concerns: No <IFEOMA Pearson Last Filed: 11/28/20 20:27> Exam Narrative: GENERAL: Well-appearing, obese, and in no acute distress. HEAD: Normocephalic, atraumatic. EYES: EOMI. ENT: Mucous membranes moist. CHEST: Clear to auscultation. No respiratory distress. No wheezes rales or rhonchi. Tender to palpation of left, upper anterior chest wall HEART: Regular rate and rhyt
[2020-11-28 15:19] LABS: Basophils Absolute Auto 0.1 K/mm3 (0.0-0.1); Basophils Percent Auto 0.8 % (0.2-1.2); Eosinophils Absolute Auto 0.1 K/mm3 (0-0.3); Eosinophils Percent Auto 1.1 % (0-4.4); Hematocrit 41.8 % (37.0-47.0); Hemoglobin 13.1 g/dL (12.0-15.0); Immature Granulocyte Absolute 0.11 K/mm3 (0.00-0.031); Immature Granulocyte Percent A 0.9 % (0-0.5); Lymphocytes Percent Auto 11.8 % (18.3-44.2); Mean Corpuscular HGB Conc 31.3 g/dl (32-36); Mean Corpuscular Hemoglobin 27.2 pg (26-34); Mean Corpuscular Volume 86.9 fl (80-100); Mean Platelet Volume 11.4 fl (7.4-10.4); Monocytes Absolute Auto 0.6 K/mm3 (0.1-0.6); Monocytes Percent Auto 4.7 % (2.6-8.5); Neutrophils Absolute Auto 10.3 K/mm3 (1.3-6.7); Neutrophils Percent Auto 80.7 % (45.5-73.1); Platelet Count Result 353 k/mm3 (150-375); Red Blood Count 4.81 M/mm3 (4.2-5.4); Red Cell Distribution Width 13.8 % (11.5-14.5); White Blood Count 12.7 K/mm3 (4.5-10.0)
[2020-11-28 15:25] LABS: Anion Gap 13 mmol/L (8-16); Blood Urea Nitrogen 27 mg/dL (7-17); Carbon Dioxide 21 mmol/L (22-30); Chloride 101 mmol/L (98-107); Estimated Glomerular Filt Rate 38; Glucose 274 mg/dL (65-110); Potassium 5.3 mmol/L (3.4-5.0); Sodium 135 mmol/L (137-145)
[2020-11-28 15:27] LABS: Prothrombin Time 12.9 Seconds (11.1-14.7)
[2020-11-28 15:28] LABS: Partial Thromboplastin Time 28.3 SECONDS (22.3-36.8)
[2020-11-28 15:30] LABS: D Dimer 0.67 ug/mL (<0.48)
[2020-11-28 15:36] LABS: Troponin I < 0.012 ng/mL (0.000-0.034)
[2020-11-28 15:52] VITALS: BP 105/73; PULSE 85; RESP 17; O2SAT 100
[2020-11-28] MEDS: SODIUM CHLORIDE 0.9% IV 1,000 ML 999 ML IV CONT ×2 (15:53→18:35)
[2020-11-28 17:25] LABS: Beta HCG Quantitative < 2.39 mIU/ML
[2020-11-28 18:34] VITALS: BP 109/66; PULSE 91; RESP 23; O2SAT 100
[2020-11-28 18:49] LABS: Troponin I < 0.012 ng/mL (0.000-0.034)
--- NOTE | 2020-11-28 18:56 | PC.NURSE ---
Per [facility] nursing [facility]. Rehab will take the patient back, please leave IV in place as she is a difficult stick. Call EMS when ready for d/c.
--- NOTE | 2020-11-28 20:27 | PC.NURSE ---
called [facility] to request transport. [id number]
--- NOTE | 2020-11-28 22:00 | PC.NURSE ---
[facility] here.
[2020-11-28 22:22] VITALS: BP 104/53; PULSE 89; RESP 22; O2SAT 99
== END 2020-11-28 22:25 ==
PROVIDERS: Physician Assistant; Emergency Provider Emergency Medicine; PCP Internal Medicine
DX: N17.9 Acute kidney failure, unspecified (principal); R07.89 Other chest pain; E11.9 Type 2 diabetes mellitus without complications; E03.9 Hypothyroidism, unspecified; I10 Essential (primary) hypertension; F17.210 Nicotine dependence, cigarettes, uncomplicated
CPT/HCPCS: 36415; 71045; 71275; 80048; 84484; 84702; 85025; 85380; 85610; 85730; 93005; 96360; 96361; 99284; J7030; Q9967

== ENCOUNTER 2020-12-30 17:08 | Emergency (ER) | payer OTHER, SELFPAY ==
--- NOTE | ~2020-12-30 | XR_ITS ---
EXAMINATION: XR chest 2V EXAM DATE: 12/30/2020 17:51 INDICATION: CP X 1 week, history of asthma. TECHNIQUE: Frontal and lateral projections of the chest obtained and reviewed. Comparison is made to prior examination from 11/28/2020. FINDINGS: The lungs are clear. There are no pleural effusions. The cardiomediastinal silhouette is within normal limits. There is no pneumothorax suspected. The bones and soft tissues are unremarkab le. IMPRESSION: No acute cardiopulmonary findings. Reviewed, dictated and finalized at location A. RNMENT RELATIONS ANALYST
--- NOTE | 2020-12-30 17:11 | ECG_ITS ---
Measurements Intervals [place] Rate: 92 P: 13 [place]: 162 QRS: 9 QRSD: 121 T: 35 QT: 381 QTc: 471 Interpretive Statements SINUS RHYTHM INTRAVENTRICULAR CONDUCTION DELAY DELAYED PRECORDIAL R/S TRANSITION CONSIDER INFERIOR INFARCT, AGE INDETERMINATE BASELINE ARTIFACT- I, II, III, AVR, AVF, V2-V6 ABNORMAL ECG Electronically Signed On 12-30-2020 20:14:27 COKE CRUSHER OPERATOR by Goldy Iqbal D.O.
[2020-12-30 17:15] VITALS: BP 154/79; PULSE 90; RESP 20; TEMP 36.6; O2SAT 99
[2020-12-30 17:39] LABS: Basophils Absolute Auto 0.1 K/mm3 (0.0-0.1); Basophils Percent Auto 0.6 % (0.2-1.2); Eosinophils Absolute Auto 0.2 K/mm3 (0-0.3); Eosinophils Percent Auto 2.1 % (0-4.4); Hematocrit 34.6 % (37.0-47.0); Hemoglobin 10.9 g/dL (12.0-15.0); Immature Granulocyte Absolute 0.33 K/mm3 (0.00-0.031); Immature Granulocyte Percent A 3.3 % (0-0.5); Lymphocytes Absolute Auto 2.31 K/mm3 (0.9-3.2); Lymphocytes Percent Auto 22.9 % (18.3-44.2); Mean Corpuscular HGB Conc 31.5 g/dl (32-36); Mean Corpuscular Hemoglobin 28.2 pg (26-34); Mean Corpuscular Volume 89.4 fl (80-100); Mean Platelet Volume 10.9 fl (7.4-10.4); Monocytes Absolute Auto 0.4 K/mm3 (0.1-0.6); Monocytes Percent Auto 3.6 % (2.6-8.5); Neutrophils Absolute Auto 6.8 K/mm3 (1.3-6.7); Neutrophils Percent Auto 67.5 % (45.5-73.1); Platelet Count Result 344 k/mm3 (150-375); Red Blood Count 3.87 M/mm3 (4.2-5.4); Red Cell Distribution Width 16.1 % (11.5-14.5); White Blood Count 10.1 K/mm3 (4.5-10.0)
[2020-12-30 17:51] LABS: Partial Thromboplastin Time 33.1 SECONDS (22.3-36.8)
[2020-12-30 17:54] LABS: INR 0.9
[2020-12-30 18:02] LABS: Anion Gap 8 mmol/L (8-16); Blood Urea Nitrogen 10 mg/dL (7-17); Calcium 9.3 mg/dL (8.4-10.2); Carbon Dioxide 28 mmol/L (22-30); Chloride 102 mmol/L (98-107); Estimated Glomerular Filt Rate > 60; Glucose 137 mg/dL (65-110); Potassium 4.4 mmol/L (3.4-5.0); Sodium 138 mmol/L (137-145)
[2020-12-30 18:14] LABS: Troponin I < 0.012 ng/mL (0.000-0.034)
[2020-12-30 19:15] VITALS: BP 145/90; PULSE 85; RESP 20; O2SAT 99
--- NOTE | 2020-12-30 19:15 | PC.NURSE ---
Assumed care of pt at this time. Pt alert and upright on stretcher, with c/o 5/10 pain. Pt updated on POC.
--- NOTE | 2020-12-30 19:26 | ED.CHESTPAIN ---
HPI - Chest Pain General Chief Complaint: Chest Pain Stated Complaint: CP Time Seen by Provider: 12/30/20 18:03 Source: patient Mode of arrival: ambulatory Limitations: no limitations History of Present Illness HPI narrative: 30-year-old female History of morbid obesity and being admitted to the ICU for pneumonia a couple months ago Here for chest pain Is been having symptoms for 2 or 3 days She estimates she has had 6 or 8 occurrences of pain which is in the left upper chest and does not radiate Pain is sharp and lasts from anywhere from 5 to 15 minutes Does not seem to be triggered by anything but sometimes moving or breathing is made it worse Pain is not severe enough that she thought she ever needed to take anything for it, but she apparently talked to her doctor's office and they thought she needed to be checked out in the ED Notably she does not have a fever, shortness of breath, or productive cough Related Data Home Medications Medication Instructions Recorded Confirmed levothyroxine 75 mcg PO DAILY 11/07/20 11/28/20 Allergies Allergy/AdvReac Type Severity Reaction Status Date / Time amoxicillin Allergy Unknown RASH, Verified 12/30/20 18:19 DIFFICULTY BREATHING Review of Systems Review of Systems: All systems reviewed & are unremarkable except as noted in HPI and below Constitutional: Constitutional: Reports no additional constitutional complaints, Denies chills, Denies fatigue, Denies fever(s), Denies headache(s) and Denies weakness Eyes: Eyes: Reports no additional eye complaints and Denies change in vision ENT: Denies headache(s) and Denies sore throat Cardiovascular: Cardiovascular: Reports chest pain, Denies radiating jaw, neck or arm pain and Denies dyspnea Respiratory: Respiratory: Denies cough and Denies dyspnea Gastrointestinal: Gastrointestinal: Denies abdominal pain, Denies diarrhea and Denies vomiting Genitourinary: Genitourinary: Denies urinary frequency and Denies dysuria Musculoskeletal: Musculoskeletal: Denies deformity, Denies arthralgias, Denies joint swelling and Denies numbness Integumentary/Breasts: Skin/Breast: Denies rash and Denies wounds Neurologic: Denies headache(s), Denies focal weakness and Denies numbness Psychiatric: Psychiatric: Reports no additional psychiatric complaints Endocrine: Endocrine: Reports no additional endocrine complaints Hematologic/Lymphatic: Hematologic/Lymphatic: Reports no additional hematologic/lymphatic complaints Allergic/Immunologic: Allergic/Immunologic: Reports no additional allergic/immunologic complaints [facility] Past Medical History Medical History Acute kidney injury Anxiety Asthma Depression Gastroesophageal reflux disease Hypertension Hypothyroidism Influenza (03/2019) Complicated by post influenza pneumonia requiring intubation and transfer to tertiary care facility for ECMO. Obstructive sleep apnea Intolerant to CPAP. Type 2 diabetes mellitus Vapes nicotine containing substance Surgical History Surgical History No history of previous surgery Family History Family History Mother Diabetes mellitus Social History Social History Social History: Surrogate decision maker: Cindy Delgado, mother. Code status: Full code. Smoking packs per day: 1 Smoking cigarettes per day: 20.0 Smoking status: Current every day smoker Additional smoking assessment comments: 1 pack of cigarettes a day for over 10 years, now vapes. Alcohol intake: current Alcohol use details: Occasional alcohol use in moderation. Substance use: never Additional living arrangements comments: The patient lives in [place] with her mother. Additional occupation/education comments: Unemployed. Spiritual care concerns: No Exam Const: Genera
[2020-12-30 19:49] VITALS: BP 139/80; PULSE 84; RESP 19; O2SAT 100
== END 2020-12-30 19:51 | disposition home or self-care (01) ==
PROVIDERS: Emergency Provider Emergency Medicine; PCP Family Medicine
DX: M94.0 Chondrocostal junction syndrome [Tietze] (principal); F41.9 Anxiety disorder, unspecified; J45.909 Unspecified asthma, uncomplicated; F32.9 Major depressive disorder, single episode, unspecified; K21.9 Gastro-esophageal reflux disease without esophagitis; I10 Essential (primary) hypertension; E03.9 Hypothyroidism, unspecified; G47.30 Sleep apnea, unspecified; E11.9 Type 2 diabetes mellitus without complications
CPT/HCPCS: 36415; 71046; 80048; 84484; 85025; 85610; 85730; 93005; 99284

== ENCOUNTER 2021-02-24 18:38 | Emergency (ER) | payer OTHER, SELFPAY ==
[2021-02-24 19:00] VITALS: BP 134/80; PULSE 84; RESP 22; TEMP 37.2; O2SAT 98
--- NOTE | 2021-02-24 20:16 | ED.URI ---
HPI - URI/Sore Throat General Chief Complaint: Upper Respiratory Infection Stated Complaint: cough Time Seen by Provider: 02/24/21 20:16 Source: patient Mode of arrival: ambulatory Limitations: no limitations History of Present Illness HPI Narrative: Claudia Gomez with PMH of morbid obesity, diabetes, high cholesterol, [facility] with complaints of cough that started about 10 days ago the runny nose and 7 days ago about 5 days ago states she had no taste or smell and has not been PCR Covid tested yet. Patient swab for Covid using a PCR Related Data Home Medications Medication Instructions Recorded Confirmed levothyroxine 75 mcg PO DAILY 11/07/20 02/24/21 dapagliflozin [Farxiga] 10 mg PO DAILY 02/24/21 02/24/21 Allergies Allergy/AdvReac Type Severity Reaction Status Date / Time amoxicillin Allergy Unknown RASH, Verified 02/24/21 19:22 DIFFICULTY BREATHING Review of Systems Review of Systems: CONSTITUTIONAL: Denies fever, chills, sweats. EYES: Denies visual changes, redness, discharge. ENT: Denies rhinorrhea,has congestion, sore throat, otalgia. CARDIOVASCULAR: Denies chest pain, palpitations, edema. Also since her taste or smell RESPIRATORY: Denies dyspnea, wheezing, has cough GASTROINTESTINAL: Denies abdominal pain, nausea, vomiting, diarrhea. GENITOURINARY: Denies dysuria, hematuria, abnormal discharge SKIN: Denies rash or itching. NEUROLOGIC: Denies numbness, or focal weakness. PSYCHIATRIC: Denies anxiety or depression. [facility] Past Medical History Medical History Acute kidney injury Anxiety Asthma Depression Gastroesophageal reflux disease Hypertension Hypothyroidism Influenza (03/2019) Complicated by post influenza pneumonia requiring intubation and transfer to tertiary care facility for ECMO. Obstructive sleep apnea Intolerant to CPAP. Type 2 diabetes mellitus Vapes nicotine containing substance Surgical History Surgical History No history of previous surgery Family History Family History Mother Diabetes mellitus Social History Social History Social History: Surrogate decision maker: Cindy Delgado, mother. Code status: Full code. Smoking packs per day: 1 Smoking cigarettes per day: 20.0 Smoking status: Current every day smoker Additional smoking assessment comments: 1 pack of cigarettes a day for over 10 years, now vapes. Alcohol intake: current Alcohol use details: Occasional alcohol use in moderation. Substance use: never Additional living arrangements comments: The patient lives in [place] with her mother. Additional occupation/education comments: Unemployed. Spiritual care concerns: No Comments At time of signature, I agree with nursing past medical, surgical, social and family history. There is no relevant family history pertinent to the presenting complaint. Exam Narrative: GENERAL: This is a well-nourished, well-developed patient, in mild distress. HEAD: normocephalic, atraumatic. EYES:. Sclera clear/white. Vision is grossly intact. EARS: External ears normal, Hearing grossly intact. NOSE: External nose normal without nasal discharge, nares without redness, no rhinorrhea. States has lost sense of taste taste and smell THROAT: Mucous membranes moist, posterior pharynx mild erythema NECK: Neck supple, non-tender CARDIOVASCULAR: Regular rate and rhythm without murmurs, gallops, or rubs. RESPIRATORY: Clear to auscultation. Breath sounds equal bilaterally. No wheezes, rales, or rhonchi. GASTROINTESTINAL: Abdomen soft, non-tender, SKIN: warm, intact with no suspicious lesions or rash, good texture and turgor. NEURO: awake, alert, and oriented to person, place and time. There were no obvious focal neurologic abnormalities. Steady gait EXTREMITIES: [place]
[2021-02-26 22:11] LABS: SARS-CoV-2 RNA PCR Positive
== END 2021-02-24 20:31 | disposition home or self-care (01) ==
PROVIDERS: Emergency Provider Nurse Practitioner
DX: J06.9 Acute upper respiratory infection, unspecified (principal); Z20.822 Contact with and (suspected) exposure to COVID-19; J45.909 Unspecified asthma, uncomplicated; K21.9 Gastro-esophageal reflux disease without esophagitis; I10 Essential (primary) hypertension; E03.9 Hypothyroidism, unspecified; G47.33 Obstructive sleep apnea (adult) (pediatric); E11.9 Type 2 diabetes mellitus without complications; F17.290 Nicotine dependence, other tobacco product, uncomplicated
CPT/HCPCS: 99211; C9803; G0463; U0003; U0005

== ENCOUNTER 2021-04-06 18:05 | Emergency (ER) | payer OTHER, SELFPAY ==
[2021-04-06] VITALS (13 sets, daily range): BP systolic 105–149; BP diastolic 58–93; PULSE 73–96; RESP 15–32; TEMP 36.5; O2SAT 94–100
--- NOTE | ~2021-04-06 | XR_ITS ---
EXAMINATION: XR chest 2V DATE: 04/06/2021 18:31 INDICATION: Chest pain TECHNIQUE: PA and lateral views of the chest were obtained. COMPARISON: Chest radiograph dated 12/30/2020 FINDINGS: The lungs remain clear with no focal airspace opacities, pulmonary edema, pleural effusion or pneumot horax. The cardiomediastinal silhouette is normal. Mild thoracic spondylosis. IMPRESSION: 1. No acute cardiopulmonary disease. Reviewed, dictated and finalized at location A. COPY EDITOR
--- NOTE | 2021-04-06 18:12 | ECG_ITS ---
Measurements Intervals [place] Rate: 99 P: 65 [place]: 146 QRS: 19 QRSD: 101 T: 50 QT: 353 QTc: 454 Interpretive Statements SINUS RHYTHM DELAYED PRECORDIAL R/S TRANSITION MINIMAL Q WAVES- INFERIOR LEADS BORDERLINE ECG Electronically Signed On 04-06-2021 20:28:30 TRACK LEADER by Goldy Iqbal D.O.
[2021-04-06 18:41] LABS: Basophils Absolute Auto 0.1 K/mm3 (0.0-0.1); Basophils Percent Auto 0.7 % (0.2-1.2); Eosinophils Absolute Auto 0.2 K/mm3 (0-0.3); Eosinophils Percent Auto 2.3 % (0-4.4); Hematocrit 38.1 % (37.0-47.0); Hemoglobin 11.7 g/dL (12.0-15.0); Immature Granulocyte Absolute 0.09 K/mm3 (0.00-0.031); Lymphocytes Absolute Auto 2.75 K/mm3 (0.9-3.2); Mean Corpuscular HGB Conc 30.7 g/dl (32-36); Mean Corpuscular Hemoglobin 26.5 pg (26-34); Mean Corpuscular Volume 86.2 fl (80-100); Mean Platelet Volume 11.3 fl (7.4-10.4); Monocytes Absolute Auto 0.4 K/mm3 (0.1-0.6); Monocytes Percent Auto 4.2 % (2.6-8.5); Neutrophils Absolute Auto 5.9 K/mm3 (1.3-6.7); Neutrophils Percent Auto 62.8 % (45.5-73.1); Platelet Count Result 388 k/mm3 (150-375); Red Blood Count 4.42 M/mm3 (4.2-5.4); Red Cell Distribution Width 16.3 % (11.5-14.5); White Blood Count 9.5 K/mm3 (4.5-10.0)
[2021-04-06 18:52] LABS: Alanine Aminotransferase 20 U/L (4-35); Albumin Level 4.2 g/dL (3.5-5.1); Alkaline Phosphatase 80 U/L (38-126); Anion Gap 6 mmol/L (8-16); Aspartate Amino Transferase 22 U/L (14-36); Bilirubin,Total 0.2 mg/dL (0.2-1.3); Blood Urea Nitrogen 17 mg/dL (7-17); Carbon Dioxide 25 mmol/L (22-30); Chloride 105 mmol/L (98-107); Estimated Glomerular Filt Rate > 60; Glucose 102 mg/dL (65-110); Lipase 129 U/L (23-300); Potassium 4.5 mmol/L (3.4-5.0); Sodium 136 mmol/L (137-145)
[2021-04-06 18:54] LABS: INR 0.9
[2021-04-06 18:55] LABS: Partial Thromboplastin Time 31.1 SECONDS (22.3-36.8)
[2021-04-06 19:03] LABS: Troponin I < 0.012 ng/mL (0.000-0.034)
--- NOTE | 2021-04-06 19:28 | PC.NURSE ---
Called lab and spoke to Con to add on D-Dimer
--- NOTE | 2021-04-06 19:33 | ED.CHESTPAIN ---
HPI - Chest Pain General Chief Complaint: Chest Pain Stated Complaint: chest pain Time Seen by Provider: 04/06/21 19:18 Source: RN notes reviewed History of Present Illness HPI narrative: Patient presents emergency department from home for chest pain. Patient states pain has been present for the past 3 weeks the pain is intermittent and lasts several minutes and then resolves is located over the bilateral anterior upper chest patient states the pain is worse with coughing and deep inspiration and improved with sleeping states she has had a cough that is been productive of yellow sputum she denies any fevers or chills abdominal pain nausea vomiting or any other symptoms Related Data Home Medications Medication Instructions Recorded Confirmed levothyroxine 75 mcg PO DAILY 11/07/20 02/24/21 dapagliflozin [Farxiga] 10 mg PO DAILY 02/24/21 02/24/21 Allergies Allergy/AdvReac Type Severity Reaction Status Date / Time amoxicillin Allergy Unknown RASH, Verified 02/24/21 19:22 DIFFICULTY BREATHING Review of Systems Review of Systems: Gen.: Denies fevers or chills ENT: Denies congestion Respiratory: Reports cough denies shortness of breath CV: See HPI GI: Denies abdominal pain nausea, emesis or diarrhea denies burning, urgency, frequency or hematuria Musculoskeletal: Denies back pain or muscle pain Neuro: Denies numbness, tingling, weakness or focal weakness Skin: Denies rash Except as documented, all other systems reviewed and negative PMFSH Past Medical History Medical History Acute kidney injury Anxiety Asthma Depression Gastroesophageal reflux disease Hypertension Hypothyroidism Influenza (03/2019) Complicated by post influenza pneumonia requiring intubation and transfer to tertiary care facility for ECMO. Obstructive sleep apnea Intolerant to CPAP. Type 2 diabetes mellitus Vapes nicotine containing substance Surgical History Surgical History No history of previous surgery Family History Family History Mother Diabetes mellitus Social History Social History Social History: Surrogate decision maker: Cindy Delgado, mother. Code status: Full code. Smoking packs per day: 1 Smoking cigarettes per day: 20.0 Smoking status: Current every day smoker Additional smoking assessment comments: 1 pack of cigarettes a day for over 10 years, now vapes. Alcohol intake: current Alcohol use details: Occasional alcohol use in moderation. Substance use: never Additional living arrangements comments: The patient lives in [place] with her mother. Additional occupation/education comments: Unemployed. Spiritual care concerns: No Exam Narrative: APPEARANCE: No acute distress, nontoxic, resting in bed EYES: EOMI HEENT: Normocephalic, atraumatic, OMM RESPIRATORY: No respiratory distress Clear to auscultation bilaterally with no rhonchi wheezing or rales. CARDIOVASCULAR: Regular rate and rhythm without murmurs rubs or gallops. Chest: Tender palpation of the bilateral anterior upper chest with point tenderness present no ecchymosis or swelling pain increased with demonstration ABDOMINAL: Soft, nontender, nondistended, no rebound or guarding MUSCULOSKELETAl: Moves all extremities. No clubbing, cyanosis or edema. NEURO: Awake and alert. Following commands, speech normal, no focal deficits SKIN:: Warm, dry. No rashes lesions or abrasions PSYCHIATRIC: Normal affect/mood, Course Course Emergency Course: Reviewed old records Patient states pain is improved at this Discussed with patient results of workup and diagnosis. Discussed need for follow-up with primary care, proper use of medication, and reasons to return to the emergency department. Patient understands and agrees to current treatment plan Vital Signs Vital sig
[2021-04-06] MEDS: IPRATROPIUM BR 0.02% INH SOLN 0.5 MG/2.5 ML VIAL INHALATION (19:40)
[2021-04-06] MEDS: ALBUTEROL SULFATE NEB 2.5 MG/0.5 ML INH 5 MG INHALATION (19:40)
[2021-04-06] MEDS: KETOROLAC 30 MG/ML VIAL (*BKC) IV PUSH (19:48)
[2021-04-06 19:59] LABS: D Dimer 0.27 ug/mL (<0.48)
[2021-04-06] MEDS: predniSONE 20 MG TABLET 60 MG PO (21:17)
== END 2021-04-06 21:26 | disposition home or self-care (01) ==
PROVIDERS: Emergency Medicine; Emergency Provider Emergency Medicine
DX: R07.89 Other chest pain (principal); J45.909 Unspecified asthma, uncomplicated; K21.9 Gastro-esophageal reflux disease without esophagitis; I10 Essential (primary) hypertension; E03.9 Hypothyroidism, unspecified; G47.33 Obstructive sleep apnea (adult) (pediatric); E11.9 Type 2 diabetes mellitus without complications; F41.9 Anxiety disorder, unspecified; F32.9 Major depressive disorder, single episode, unspecified; F17.290 Nicotine dependence, other tobacco product, uncomplicated; R94.31 Abnormal electrocardiogram [ECG] [EKG]; Z79.84 Long term (current) use of oral hypoglycemic drugs
CPT/HCPCS: 36415; 71046; 80053; 83690; 84484; 85025; 85380; 85610; 85730; 93005; 94640; 96374; 99284; J1885; J7512

== ENCOUNTER 2021-06-21 17:28 | Outpatient (CLI) | payer OTHER, SELFPAY | END 2021-06-21 17:29 | disposition home or self-care (01) | LOC: ANHLAB 17:31 | PROVIDERS: PCP Physician Assistant; Visit Provider Internal Medicine Hematology & Oncology | DX: D72.829 Elevated white blood cell count, unspecified (principal) | CPT/HCPCS: 88184 ==

== ENCOUNTER 2021-06-29 18:33 | Emergency (ER) | payer OTHER, SELFPAY ==
[2021-06-29 18:43] VITALS: BP 148/83; PULSE 88; RESP 16; TEMP 37.3; O2SAT 98
--- NOTE | 2021-06-29 19:06 | ED.EAR ---
HPI - Ear Problem General Chief complaint: Ear Stated complaint: Ear Pain Time Seen by Provider: 06/29/21 19:06 Source: patient Mode of arrival: ambulatory Limitations: no limitations History of Present Illness HPI Narrative: 30-year-old female presents with complaint of ear pain for 2 to 3 days. Reports that she has been using [id number] homeopathic pain drops with no relief. States that last week areas were itchy and she was itching them with her fingers. No hearing changes. No other complaints. All systems reviewed and negative except as noted above. Related Data Home Medications Medication Instructions Recorded Confirmed levothyroxine 75 mcg PO DAILY 11/07/20 02/24/21 dapagliflozin [Farxiga] 10 mg PO DAILY 02/24/21 02/24/21 Allergies Allergy/AdvReac Type Severity Reaction Status Date / Time amoxicillin Allergy Unknown RASH, Verified 06/29/21 19:14 DIFFICULTY BREATHING Review of Systems Review of Systems: CONSTITUTIONAL: Denies fever, chills, or sweats. EYES: Denies visual changes, redness, or discharge. ENT: Denies rhinorrhea, congestion, sore throat. Reports pain to both ears. CARDIOVASCULAR: Denies chest pain, palpitations, or edema. RESPIRATORY: Denies cough or dyspnea. GASTROINTESTINAL: Denies abdominal pain, nausea, vomiting, or diarrhea. GENITOURINARY: Denies dysuria or hematuria. SKIN: Denies rash or itching. MUSCULOSKELETAL: Denies back pain, joint pain, or myalgia. NEUROLOGIC: Denies headache, numbness, or weakness. PSYCHIATRIC: Denies anxiety or depression. All other systems reviewed are negative, except as documented in HPI. [facility] Past Medical History Medical History Acute kidney injury Anxiety Asthma Depression Gastroesophageal reflux disease Hypertension Hypothyroidism Influenza (03/2019) Complicated by post influenza pneumonia requiring intubation and transfer to tertiary care facility for ECMO. Obstructive sleep apnea Intolerant to CPAP. Type 2 diabetes mellitus Vapes nicotine containing substance Surgical History Surgical History No history of previous surgery Family History Family History Mother Diabetes mellitus Social History Social History Social History: Surrogate decision maker: Cindy Delgado, mother. Code status: Full code. Smoking packs per day: 1 Smoking cigarettes per day: 20.0 Smoking status: Current every day smoker Additional smoking assessment comments: 1 pack of cigarettes a day for over 10 years, now vapes. Alcohol intake: current Alcohol use details: Occasional alcohol use in moderation. Substance use: never Additional living arrangements comments: The patient lives in [place] with her mother. Additional occupation/education comments: Unemployed. Spiritual care concerns: No Comments At time of signature, agree with nursing past medical, surgical, social and family history. There is no relevant family history pertinent to the presenting complaint. Exam Narrative: GENERAL: This is a well-nourished, well-developed patient, in no apparent distress. HEAD: normocephalic, atraumatic. EYES: PERRL. Sclera clear/white. Vision is grossly intact. EARS: External ears normal, erythema and swelling to both ear canals with scant drainage. No wax impaction. Both TMs are normal without perforation. NOSE: External nose normal NECK: Neck supple, non-tender without lymphadenopathy, masses or thyromegaly. CARDIOVASCULAR: Regular rate and rhythm without murmurs, gallops, or rubs. RESPIRATORY: Clear to auscultation. Breath sounds equal bilaterally. No wheezes, rales, or rhonchi. SKIN: warm, Dry, intact with no suspicious lesions or rash, good texture and turgor. NEURO: awake, alert, and oriented to person, place and time. There were no obvious focal neur
== END 2021-06-29 19:13 | disposition home or self-care (01) ==
PROVIDERS: Emergency Provider Nurse Practitioner Family
DX: H60.503 Unspecified acute noninfective otitis externa, bilateral (principal); F17.290 Nicotine dependence, other tobacco product, uncomplicated; J45.909 Unspecified asthma, uncomplicated; K21.9 Gastro-esophageal reflux disease without esophagitis; I10 Essential (primary) hypertension; E03.9 Hypothyroidism, unspecified; G47.33 Obstructive sleep apnea (adult) (pediatric); E11.9 Type 2 diabetes mellitus without complications
CPT/HCPCS: 99213; G0463

== ENCOUNTER 2021-08-02 18:24 | Emergency (ER) | payer OTHER, SELFPAY ==
[2021-08-02 18:26] VITALS: PULSE 81; RESP 18; TEMP 36.9; O2SAT 97
--- NOTE | 2021-08-02 19:24 | ED.EAR ---
HPI - Ear Problem General Chief complaint: Ear Stated complaint: ear infection Time Seen by Provider: 08/02/21 19:02 History of Present Illness HPI Narrative: Patient is a 30-year-old female who presents ER with concerns for ear infection. Patient has been on multiple antibiotics and continues to have ear discomfort. She was first prescribed ofloxacin drops on 06/29/2021. She then was prescribed doxycycline, a 7-day course, on 07/26/2021. She took her last dose today. She also happened to be prescribed azithromycin 3 days ago on 07/30/2021, she still has 1 dose remaining to take tomorrow. She has discomfort in her right ear and difficulty hearing. She endorses sinus congestion. No sore throat or cough. She is not taking any sinus decongestants. No fevers or chills or sweats. No dizziness. No swelling behind her ear. She does report mild right-sided frontal aching headache. She has not seen an ENT. Patient reports she did have ear tubes as a kid and had 1 removed when she was 20 years old. Related Data Home Medications Medication Instructions Recorded Confirmed levothyroxine 75 mcg tablet 75 mcg PO DAILY 11/07/20 02/24/21 dapagliflozin 10 mg tablet 10 mg PO DAILY 02/24/21 02/24/21 (Farxiga) Allergies Allergy/AdvReac Type Severity Reaction Status Date / Time amoxicillin Allergy Unknown RASH, Verified 06/29/21 19:14 DIFFICULTY BREATHING Review of Systems Review of Systems: All systems reviewed & are unremarkable except as noted in HPI and below Constitutional: Constitutional: Denies chills and Denies fever(s) ENT: Denies vertigo, Denies dizziness, Reports nasal congestion and Denies sore throat Comments: Right ear pain, decreased hearing right ear Respiratory: Respiratory: Denies cough and Denies dyspnea PMFSH Past Medical History Medical History Acute kidney injury Anxiety Asthma Depression Gastroesophageal reflux disease Hypertension Hypothyroidism Influenza (03/2019) Complicated by post influenza pneumonia requiring intubation and transfer to tertiary care facility for ECMO. Obstructive sleep apnea Intolerant to CPAP. Type 2 diabetes mellitus Vapes nicotine containing substance Surgical History Surgical History No history of previous surgery Family History Family History Mother Diabetes mellitus Social History Social History Social History: Surrogate decision maker: Cindy Delgado, mother. Code status: Full code. Smoking packs per day: 1 Smoking cigarettes per day: 20.0 Smoking status: Current every day smoker Additional smoking assessment comments: 1 pack of cigarettes a day for over 10 years, now vapes. Alcohol intake: current Alcohol use details: Occasional alcohol use in moderation. Substance use: never Additional living arrangements comments: The patient lives in [place] with her mother. Additional occupation/education comments: Unemployed. Spiritual care concerns: No Exam Narrative: GENERAL: Well-appearing, morbidly obese, and in no acute distress. HEAD: Normocephalic, atraumatic. ENT: Mucous membranes moist. The anatomy of bilateral eardrums appears obscure. There is no erythema of the eardrum or edema of the ear canal. No tenderness manipulation of the left ear but patient does have some discomfort with manipulation of the right ear. CHEST: Clear to auscultation. No respiratory distress. HEART: Regular rate and rhythm. Normal peripheral pulses. EXTREMITIES: Normal range of motion. No edema. NEURO: Alert and oriented x3. PSYCH: Normal mood and affect. Course Course Emergency Course: Patient's symptoms could be from parotitis related to her sinus congestion. Discussed that she will not receive additional antibiotics and she is still receiving a course of treatment th
[2021-08-02 19:40] VITALS: BP 142/80; PULSE 88; RESP 16; TEMP 36.8; O2SAT 98
== END 2021-08-02 19:42 | disposition home or self-care (01) ==
PROVIDERS: Emergency Provider Emergency Medicine; PCP Physician Assistant
DX: H92.01 Otalgia, right ear (principal); I10 Essential (primary) hypertension; E03.9 Hypothyroidism, unspecified; E11.9 Type 2 diabetes mellitus without complications; F17.210 Nicotine dependence, cigarettes, uncomplicated
CPT/HCPCS: 99283

== ENCOUNTER 2021-11-02 18:10 | Emergency (ER) | payer OTHER, SELFPAY ==
--- NOTE | ~2021-11-02 | XR_ITS ---
EXAMINATION: XR chest 2V Exam Date/Time: 11/02/2021 18:25 CDT HISTORY: chest pain; SOB; hx of asthma, smoker Comparison: 04/06/2021. RESULT: Lines, tubes, and devices: None. Lungs and pleura: Clear. Cardiomediastinal silhouette: Stable. Other: No acute osseous or upper abdominal finding. IMPRESSION: No acute cardiopulmonary process. Reviewed, dictated and finalized at location K.
--- NOTE | 2021-11-02 18:14 | ECG_ITS ---
Measurements Intervals [place] Rate: 89 P: 48 MO: 148 QRS: 34 QRSD: 92 T: 35 QT: 370 QTc: 452 Interpretive Statements SINUS RHYTHM DELAYED PRECORDIAL R/S TRANSITION CONSIDER INFERIOR INFARCT, AGE INDETERMINATE ABNORMAL ECG COMPARED TO ECG 04/06/2021 18:16:19 NO SIGNIFICANT CHANGES Electronically Signed On 11-02-2021 21:53:10 CDT by Goldy Iqbal D.O.
[2021-11-02 18:34] VITALS: BP 174/88; PULSE 96; RESP 18; TEMP 37.1; O2SAT 99
[2021-11-02 18:34] LABS: Basophils Absolute Auto 0.1 K/mm3 (0.0-0.1); Basophils Percent Auto 0.6 % (0.2-1.2); Eosinophils Absolute Auto 0.4 K/mm3 (0-0.3); Eosinophils Percent Auto 3.5 % (0-4.4); Hematocrit 39.4 % (37.0-47.0); Hemoglobin 12.2 g/dL (12.0-15.0); Immature Granulocyte Absolute 0.13 K/mm3 (0.00-0.031); Immature Granulocyte Percent A 1.3 % (0-0.5); Lymphocytes Absolute Auto 2.23 K/mm3 (0.9-3.2); Mean Corpuscular Hemoglobin 26.4 pg (26-34); Mean Corpuscular Volume 85.3 fl (80-100); Mean Platelet Volume 11.1 fl (7.4-10.4); Monocytes Absolute Auto 0.3 K/mm3 (0.1-0.6); Monocytes Percent Auto 2.9 % (2.6-8.5); Neutrophils Absolute Auto 7.1 K/mm3 (1.3-6.7); Neutrophils Percent Auto 69.7 % (45.5-73.1); Platelet Count Result 293 k/mm3 (150-375); Red Blood Count 4.62 M/mm3 (4.2-5.4); Red Cell Distribution Width 14.8 % (11.5-14.5); White Blood Count 10.1 K/mm3 (4.5-10.0)
[2021-11-02 18:45] LABS: Alanine Aminotransferase 25 U/L (6-35); Alkaline Phosphatase 92 U/L (38-126); Anion Gap 12 mmol/L (8-16); Aspartate Amino Transferase 26 U/L (14-36); Bilirubin,Total 0.3 mg/dL (0.2-1.3); Blood Urea Nitrogen 12 mg/dL (7-17); Calcium 8.8 mg/dL (8.4-10.2); Carbon Dioxide 23 mmol/L (22-30); Chloride 102 mmol/L (98-107); Estimated Glomerular Filt Rate > 60; Glucose 247 mg/dL (65-110); Lipase 113 U/L (23-300); Partial Thromboplastin Time 29.1 SECONDS (22.3-36.8); Potassium 4.3 mmol/L (3.4-5.0); Prothrombin Time 12.6 Seconds (11.1-14.7); Sodium 137 mmol/L (137-145)
[2021-11-02 18:56] LABS: Troponin I < 0.012 ng/mL (0.000-0.034)
--- NOTE | 2021-11-02 21:38 | ED.CHESTPAIN ---
HPI - Chest Pain General Chief Complaint: Chest Pain Stated Complaint: chest pain Time Seen by Provider: 11/02/21 21:04 History of Present Illness HPI narrative: This is a 31-year-old female with past medical history of hypertension super morbid obesity and asthma, who presents to the emergency department complaining of chest pain for the last 3 weeks worse in the last day. The pain is described as someone punched me in the chest over the anterior chest wall. Pain does not radiate and is not associated with nausea, vomiting, shortness of breath or weakness or numbness. Related Data Home Medications Medication Instructions Recorded Confirmed levothyroxine 75 mcg tablet 75 mcg PO DAILY 11/07/20 08/11/21 dapagliflozin 10 mg tablet 10 mg PO DAILY 02/24/21 08/11/21 (Farxiga) Allergies Allergy/AdvReac Type Severity Reaction Status Date / Time amoxicillin Allergy Unknown RASH, Verified 11/02/21 18:37 DIFFICULTY BREATHING Review of Systems Review of Systems: CONSTITUTIONAL: Denies fever, chills, or sweats. EYES: Denies visual changes, redness, or discharge. ENT: Denies rhinorrhea, congestion, sore throat, or otalgia. CARDIOVASCULAR: chest pain Denies palpitations, or edema. RESPIRATORY: Denies cough or dyspnea. GASTROINTESTINAL: Denies abdominal pain, nausea, vomiting, or diarrhea. GENITOURINARY: Denies dysuria or hematuria. SKIN: Denies rash or itching. MUSCULOSKELETAL: Denies back pain, joint pain, or myalgia. NEUROLOGIC: Denies headache, numbness, dizziness, or weakness. PSYCHIATRIC: Denies anxiety or depression. [facility] Past Medical History Medical History Acute kidney injury Anxiety Asthma Depression Gastroesophageal reflux disease Hypertension Hypothyroidism Influenza (03/2019) Complicated by post influenza pneumonia requiring intubation and transfer to tertiary care facility for ECMO. Obstructive sleep apnea Intolerant to CPAP. Type 2 diabetes mellitus Vapes nicotine containing substance Surgical History Surgical History No history of previous surgery Family History Family History Mother Diabetes mellitus Asthma Hypertension Thyroid disorder Grandparent Cancer Diabetes mellitus Social History Social History Social History: Surrogate decision maker: Cindy Delgado, mother. Code status: Full code. Smoking packs per day: 1 Smoking cigarettes per day: 20.0 Smoking status: Current every day smoker Additional smoking assessment comments: 1 pack of cigarettes a day for over 10 years, now vapes. Alcohol intake: current Alcohol use details: Occasional alcohol use in moderation. Substance use: never Additional living arrangements comments: The patient lives in [place] with her mother. Additional occupation/education comments: Unemployed. Spiritual care concerns: No Exam Narrative: GENERAL: Well-developed, well-nourished, and in no acute distress. Obese HEAD: Normocephalic, atraumatic. EYES: PERRLA and EOMI. ENT: Nares clear, no rhinorrhea or epistaxis. Mucous membranes moist. Oropharynx without tonsillar hypertrophy exudate or other lesions. NECK: Supple. No adenopathy or masses. No carotid bruits or JVD CHEST: Tender to palpation over the anterior chest wall without crepitus or step-off, clear to auscultation. No respiratory distress. No wheezes rales or rhonchi HEART: Regular rate and rhythm. No murmur heard. Normal peripheral pulses. ABDOMEN: Soft, nontender, nondistended, normal active bowel sounds. EXTREMITIES: Normal range of motion. No edema. SKIN: Warm, dry, no rash. NEURO: No focal deficits. Alert and oriented x3. PSYCH: Normal mood and affect. Course Course Emergency Course: 21:42 - I do not have a strong suspicion for PE and patient's Wells score is 0. 23:26 -EKG
[2021-11-02] MEDS: ACETAMINOPHEN 500 MG TABLET 1000 MG PO (22:30)
[2021-11-02] MEDS: LIDOCAINE 5% PATCH 1 PATCH TRANSDERM (22:31)
[2021-11-02 22:35] VITALS: BP 146/76; PULSE 93; RESP 24; O2SAT 94
[2021-11-02 23:40] VITALS: BP 120/62; PULSE 78; RESP 22; O2SAT 94
== END 2021-11-02 23:46 | disposition home or self-care (01) ==
PROVIDERS: Emergency Medicine; Emergency Provider Preventive Medicine Aerospace Medicine; PCP Physician Assistant
DX: R07.89 Other chest pain (principal); I10 Essential (primary) hypertension; E11.9 Type 2 diabetes mellitus without complications; G47.33 Obstructive sleep apnea (adult) (pediatric); E03.9 Hypothyroidism, unspecified; K21.9 Gastro-esophageal reflux disease without esophagitis; F41.9 Anxiety disorder, unspecified; F32.A Depression, unspecified; F17.290 Nicotine dependence, other tobacco product, uncomplicated; Z79.84 Long term (current) use of oral hypoglycemic drugs; Z79.51 Long term (current) use of inhaled steroids; E66.01 Morbid (severe) obesity due to excess calories; Z68.45 Body mass index [BMI] 70 or greater, adult
CPT/HCPCS: 36415; 71046; 80053; 83690; 84484; 85025; 85610; 85730; 93005; 99284; A9270

== ENCOUNTER 2022-04-06 17:56 | Emergency (ER) | payer OTHER, SELFPAY ==
--- NOTE | ~2022-04-06 | XR_ITS ---
EXAMINATION: XR chest 2V Exam Date/Time: 04/06/2022 18:40 [facility] HISTORY: short of breath cough smoker Comparison: 11/02/2021. RESULT: Lines, tubes, and devices: None. Lungs and pleura: Low lung volumes, with crowding in the lateral view, otherwise clear. Cardiomediastinal silhouette: Stable. Other: No acute osseous or upper abdominal finding. IMPRESSION: No acute cardiopulmonary process. Reviewed, dictated and finalized at location K. [facility]
[2022-04-06 18:15] VITALS: BP 139/84; PULSE 84; RESP 24; TEMP 37.3; O2SAT 100
--- NOTE | 2022-04-06 18:25 | ED.GENADULT ---
HPI - General Adult General Chief complaint: Shortness of Breath/Dyspnea Stated complaint: SOB/Chest Pain Time Seen by Provider: 04/06/22 18:25 Source: patient Mode of arrival: ambulatory Limitations: no limitations History of Present Illness HPI narrative: 31-year-old female, morbidly obese, with history of hypertension, diabetes presents with complaint of chest pain, shortness of breath for the last 2-3 days. Reports she has had a cough for the last 2 weeks. Afebrile. History of asthma. Also smokes half pack cigarettes a day. She is not taking any [id number] medications to treat her cough. She called her primary care physician yesterday regarding her shortness of breath and chest pain and was told to the ER. Patient decided that she did not want to be seen in the ER and came to the urgent care today. She is speaking in full sentences. No difficulty breathing. All systems reviewed and negative except as noted above. Related Data Home Medications Medication Instructions Recorded Confirmed dapagliflozin 10 mg tablet 10 mg PO DAILY 02/24/21 04/06/22 (Farxiga) dulaglutide 0.75 mg/0.5 mL 0.75 mg subcut WEEKLY 04/06/22 04/06/22 subcutaneous pen injector (Trulicity) Allergies Allergy/AdvReac Type Severity Reaction Status Date / Time amoxicillin Allergy Unknown RASH, Verified 04/06/22 18:02 DIFFICULTY BREATHING Review of Systems Review of Systems: CONSTITUTIONAL: Denies fever, chills, or sweats. EYES: Denies visual changes, redness, or discharge. ENT: Denies rhinorrhea, congestion, sore throat, or otalgia. CARDIOVASCULAR: reports chest pain. Denies palpitations, or edema. RESPIRATORY: Reports cough And dyspnea with exertion. GASTROINTESTINAL: Denies abdominal pain, nausea, vomiting, or diarrhea. GENITOURINARY: Denies dysuria or hematuria. SKIN: Denies rash or itching. MUSCULOSKELETAL: Denies back pain, joint pain, or myalgia. NEUROLOGIC: Denies headache, numbness, or weakness. PSYCHIATRIC: Denies anxiety or depression. All other systems reviewed are negative, except as documented in HPI. [facility] Past Medical History Medical History Acute kidney injury Anxiety Asthma Depression Gastroesophageal reflux disease Hypertension Hypothyroidism Influenza (03/2019) Complicated by post influenza pneumonia requiring intubation and transfer to tertiary care facility for ECMO. Obstructive sleep apnea Intolerant to CPAP. Type 2 diabetes mellitus Vapes nicotine containing substance Surgical History Surgical History No history of previous surgery Family History Family History Mother Diabetes mellitus Asthma Hypertension Thyroid disorder Grandparent Cancer Diabetes mellitus Social History Social History Social History: Surrogate decision maker: Cindy Delgado, mother. Code status: Full code. Smoking packs per day: 1 Smoking cigarettes per day: 20.0 Smoking status: Current every day smoker Additional smoking assessment comments: 1 pack of cigarettes a day for over 10 years, now vapes. Alcohol intake: current Alcohol use details: Occasional alcohol use in moderation. Substance use: never Living arrangements: with family Additional living arrangements comments: The patient lives in [place] with her mother. Additional occupation/education comments: Unemployed. Spiritual care concerns: No Comments At time of signature, agree with nursing past medical, surgical, social and family history. There is no relevant family history pertinent to the presenting complaint. Exam Narrative: GENERAL: This is a well-nourished, well-developed patient, in no apparent distress. HEAD: normocephalic, atraumatic. EYES: PERRL. Sclera clear/white. Vision is grossly intact. EARS: External ears norm
[2022-04-06 18:36] LABS: Glucose Point of Care 198 mg/dl (65-105)
--- NOTE | 2022-04-06 18:43 | ECG_ITS ---
Measurements Intervals [place] Rate: 76 P: 57 [place]: 137 QRS: 18 QRSD: 97 T: 63 QT: 374 QTc: 421 Interpretive Statements SINUS RHYTHM COMPARED TO ECG 11/02/2021 18:24:53 NO SIGNIFICANT CHANGES Electronically Signed On 04-07-2022 14:50:55 CUSTOM DECORATING CONSULTANT by Pauline Abbasi M.D.
== END 2022-04-06 19:15 | disposition home or self-care (01) ==
PROVIDERS: Emergency Provider Nurse Practitioner Family; PCP Physician Assistant
DX: J20.9 Acute bronchitis, unspecified (principal); E11.65 Type 2 diabetes mellitus with hyperglycemia; J45.909 Unspecified asthma, uncomplicated; K21.9 Gastro-esophageal reflux disease without esophagitis; I10 Essential (primary) hypertension; E03.9 Hypothyroidism, unspecified; F17.290 Nicotine dependence, other tobacco product, uncomplicated; F41.9 Anxiety disorder, unspecified; F32.A Depression, unspecified
CPT/HCPCS: 71046; 82948; 93005; 99213; G0463

== ENCOUNTER 2022-08-01 11:51 | Emergency (ER) | payer OTHER, SELFPAY ==
--- NOTE | ~2022-08-01 | XR_ITS ---
EXAMINATION: XR chest 2V DATE: 08/01/2022 13:20 INDICATION: Shortness of breath. TECHNIQUE: Frontal and lateral views of the chest were obtained. COMPARISON: Chest 2 views 04/06/2022, chest CT 11/28/2020 FINDINGS: The chest demonstrates clear lungs without pneumonia, pleural effusion, or pneumothorax. Th e heart size is normal. IMPRESSION: 1. No acute cardiopulmonary disease. Reviewed, dictated and finalized at location A.
[2022-08-01 12:16] VITALS: BP 138/89; PULSE 97; RESP 23; TEMP 36.4; O2SAT 99
--- NOTE | 2022-08-01 12:19 | ECG_ITS ---
Measurements Intervals [place] Rate: 103 P: 36 [place]: 135 QRS: -3 QRSD: 104 T: 42 QT: 338 QTc: 443 Interpretive Statements SINUS TACHYCARDIA LOW QRS VOLTAGE IN PRECORDIAL LEADS BASELINE ARTIFACT BORDERLINE ECG COMPARED TO ECG 04/06/2022 18:32:07 SINUS TACHYCARDIA NOW PRESENT Electronically Signed On 08-01-2022 17:13:24 CDT by Ruddy Joyner M.D.
[2022-08-01] MEDS: LIDOCAINE HCL 2% VISC SOLN 15 ML UDC PO (12:58)
[2022-08-01 13:10] LABS: Basophils Absolute Auto 0.1 K/mm3 (0.0-0.1); Basophils Percent Auto 0.4 % (0.2-1.2); Eosinophils Absolute Auto 0.1 K/mm3 (0-0.3); Eosinophils Percent Auto 0.7 % (0-4.4); Hemoglobin 12.8 g/dL (12.0-15.0); Immature Granulocyte Absolute 0.15 K/mm3 (0.00-0.031); Lymphocytes Absolute Auto 1.89 K/mm3 (0.9-3.2); Lymphocytes Percent Auto 12.7 % (18.3-44.2); Mean Corpuscular HGB Conc 31.2 g/dl (32-36); Mean Corpuscular Hemoglobin 26.7 pg (26-34); Mean Corpuscular Volume 85.6 fl (80-100); Mean Platelet Volume 11.4 fl (7.4-10.4); Monocytes Absolute Auto 0.9 K/mm3 (0.1-0.6); Monocytes Percent Auto 5.8 % (2.6-8.5); Neutrophils Absolute Auto 11.8 K/mm3 (1.3-6.7); Neutrophils Percent Auto 79.4 % (45.5-73.1); Platelet Count Result 316 k/mm3 (150-375); Red Blood Count 4.79 M/mm3 (4.2-5.4); Red Cell Distribution Width 15.2 % (11.5-14.5); White Blood Count 14.8 K/mm3 (4.5-10.0)
[2022-08-01 13:27] LABS: Alanine Aminotransferase 25 U/L (6-35); Alkaline Phosphatase 86 U/L (38-126); Anion Gap 3 mmol/L (8-16); Aspartate Amino Transferase 23 U/L (14-36); Bilirubin,Total 0.6 mg/dL (0.2-1.3); Blood Urea Nitrogen 10 mg/dL (7-17); Calcium 8.5 mg/dL (8.4-10.2); Carbon Dioxide 30 mmol/L (22-30); Chloride 101 mmol/L (98-107); Estimated Glomerular Filt Rate > 60; Glucose 146 mg/dL (65-110); Potassium 3.9 mmol/L (3.4-5.0); Sodium 134 mmol/L (137-145)
[2022-08-01 13:31] LABS: Troponin I < 0.012 ng/mL (0.000-0.034)
[2022-08-01 13:34] LABS: CRP 16.5 mg/dL (<1.0)
[2022-08-01 14:19] VITALS: PULSE 99
[2022-08-01 14:20] VITALS: BP 153/91; PULSE 98; RESP 18; O2SAT 99
[2022-08-01 14:29] LABS: Appearance Urine Cloudy (Clear); Bacteria Urine 1+ /hpf; Bilirubin Urine Negative (Negative); Blood Urine Negative (Negative); Color Urine Dark Yellow (Yellow); Glucose Urine UA Negative (Negative); Ketones Urine Trace mg/dL (Negative); Leukocyte Esterase Ur 1+ LEU/UL (Negative); Nitrate Urine Negative (Negative); Non Pathogenic Casts 0-2; Protein Urine Trace mg/dL (Negative); RBC Urine 0-2 /hpf (0-2); Specific Grav Ur 1.024 (1.001-1.035); Squamous Epithelial Cell Urine Few /hpf (Few); WBC Urine 21-50 /hpf; pH Urine 5.5 (5.0-9.0)
[2022-08-01 14:38] LABS: Strep Group A RT-PCR DETECTED (Negative)
[2022-08-01 14:40] LABS: Add Urine Microscopic? YES
--- NOTE | 2022-08-01 14:56 | ED.GENADULT ---
HPI - General Adult General Chief complaint: Dizziness Stated complaint: lightheaded/st Time Seen by Provider: 08/01/22 12:42 Source: patient Mode of arrival: ambulatory Limitations: no limitations History of Present Illness HPI narrative: 31-year-old with a history of hypertension diabetes morbid obesity here with complaints of sore throat, dizziness, cough, chest discomfort for past 2 days. She denies any fever no history of nausea, vomiting or shortness of breath. Related Data Home Medications Medication Instructions Recorded Confirmed dapagliflozin 10 mg tablet 10 mg PO DAILY 02/24/21 04/06/22 (Farxiga) dulaglutide 0.75 mg/0.5 mL 0.75 mg subcut WEEKLY 04/06/22 04/06/22 subcutaneous pen injector (Trulicity) Allergies Allergy/AdvReac Type Severity Reaction Status Date / Time amoxicillin Allergy Unknown RASH, Verified 04/06/22 18:02 DIFFICULTY BREATHING Review of Systems Review of Systems: All systems reviewed & are unremarkable except as noted in HPI and below Constitutional: Constitutional: Reports no additional constitutional complaints Eyes: Eyes: Reports no additional eye complaints ENT: Reports as per HPI Cardiovascular: Cardiovascular: Reports no additional cardiovascular complaints Respiratory: Respiratory: Reports no additional respiratory complaints Gastrointestinal: Gastrointestinal: Reports no additional gastrointestinal complaints Musculoskeletal: Musculoskeletal: Reports no additional musculoskeletal complaints Neurologic: Reports system reviewed and no additional complaints, except as documented PMF Past Medical History Medical History Acute kidney injury Anxiety Asthma Depression Gastroesophageal reflux disease Hypertension Hypothyroidism Influenza (03/2019) Complicated by post influenza pneumonia requiring intubation and transfer to tertiary care facility for ECMO. Obstructive sleep apnea Intolerant to CPAP. Type 2 diabetes mellitus Vapes nicotine containing substance Surgical History Surgical History No history of previous surgery Family History Family History Mother Diabetes mellitus Asthma Hypertension Thyroid disorder Grandparent Cancer Diabetes mellitus Social History Social History Social History: Surrogate decision maker: Cindy Delgado, mother. Code status: Full code. Smoking packs per day: 1 Smoking cigarettes per day: 20.0 Smoking status: Current every day smoker Additional smoking assessment comments: 1 pack of cigarettes a day for over 10 years, now vapes. Alcohol intake: current Alcohol use details: Occasional alcohol use in moderation. Substance use: never Living arrangements: with family Additional living arrangements comments: The patient lives in [place] with her mother. Additional occupation/education comments: Unemployed. Spiritual care concerns: No Exam Narrative: GENERAL: Well-appearing, morbid obesity, and in no acute distress. HEAD: Normocephalic, atraumatic. EYES: PERRLA and EOMI. Oral moist mild erythematous tonsils NECK: Supple. CHEST: Clear to auscultation. No respiratory distress. HEART: Regular rate and rhythm. No murmur heard. Normal peripheral pulses. ABDOMEN: Soft, nontender, nondistended, normal active bowel sounds. EXTREMITIES: Normal range of motion. No edema. SKIN: Warm, dry, no rash. NEURO: No focal deficits. Alert and oriented x3. PSYCH: Normal mood and affect. Course Course Emergency Course: Patient was constantly crying because her throat was hurting. I did give viscous lidocaine which helped the pain. Her lab work is positive for strep a. I did inform her about her lab work, chest x-ray and EKG findings. She feels comfortable now going home with antibiotic. Vital Signs Vital signs: Vit
[2022-08-01 15:18] VITALS: BP 111/42; PULSE 78; RESP 16; O2SAT 98
== END 2022-08-01 15:19 | disposition home or self-care (01) ==
PROVIDERS: Emergency Provider Family Medicine; PCP Physician Assistant
DX: J02.0 Streptococcal pharyngitis (principal); I10 Essential (primary) hypertension; E11.9 Type 2 diabetes mellitus without complications; J45.909 Unspecified asthma, uncomplicated; E03.9 Hypothyroidism, unspecified; K21.9 Gastro-esophageal reflux disease without esophagitis; G47.33 Obstructive sleep apnea (adult) (pediatric); Z79.85 Long-term (current) use of injectable non-insulin antidiabetic drugs; Z79.84 Long term (current) use of oral hypoglycemic drugs; F17.290 Nicotine dependence, other tobacco product, uncomplicated; R00.0 Tachycardia, unspecified
CPT/HCPCS: 36415; 71046; 80053; 81001; 81025; 84484; 85025; 86140; 87077; 87086; 87186; 87651; 93005; 99284

== ENCOUNTER 2023-02-09 18:26 | Emergency (ER) | payer OTHER, SELFPAY ==
--- NOTE | ~2023-02-09 | XR_ITS ---
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 RESULT: Lines, tubes, and devices: None. Lungs and pleura: Low volumes with crowding in the lateral view. No focal consolidation, pleural eff usion, or pneumothorax.. Cardiomediastinal silhouette: Stable. Other: No acute osseous or upper abdominal finding. IMPRESSION: No acute cardiopulmonary process. Reviewed, dictated and finalized at location K. SPRING FRAME BUILDER
[2023-02-09 18:36] VITALS: BP 159/96; PULSE 80; RESP 16; TEMP 36.8; O2SAT 99
--- NOTE | 2023-02-09 18:40 | ECG_ITS ---
Measurements Intervals [place] Rate: 86 P: 38 [place]: 145 QRS: 10 QRSD: 105 T: 51 QT: 368 QTc: 441 Interpretive Statements SINUS RHYTHM POOR R-WAVE PROGRESSION BORDERLINE ECG COMPARED TO ECG 08/01/2022 12:22:51 NO SIGNIFICANT CHANGE Electronically Signed On 02-10-2023 14:58:18 WRECKING CAR DRIVER by [place] M.D.
--- NOTE | 2023-02-09 21:33 | ED.GENADULT ---
HPI - General Adult General Chief complaint: Upper Respiratory Infection Stated complaint: coivd- SOB/Chest pains Time Seen by Provider: 02/09/23 21:31 Source: patient Mode of arrival: ambulatory Limitations: no limitations History of Present Illness HPI narrative: This is a 32-year-old female who is COVID positive for home test presenting to the ED for chief complaint of chest pain and URI symptoms x5 days. Reports that she told her PCP she was chest pain he. Reports chest tightness in the central chest that radiates towards the back at times. Denies exertional component. Denies syncope, vomiting, nausea, diaphoresis. Endorses body aches, chills. Related Data Home Medications Medication Instructions Recorded Confirmed dapagliflozin propanediol 10 mg 10 mg PO DAILY 02/24/21 04/06/22 tablet (Farxiga) dulaglutide 0.75 mg/0.5 mL 0.75 mg subcut WEEKLY 04/06/22 04/06/22 subcutaneous pen injector (Trulicity) Allergies Allergy/AdvReac Type Severity Reaction Status Date / Time amoxicillin Allergy Unknown RASH, Verified 02/09/23 18:27 DIFFICULTY BREATHING Review of Systems Review of Systems: All systems as dictated in HPI [facility] Past Medical History Medical History Acute kidney injury Anxiety Asthma Depression Gastroesophageal reflux disease Hypertension Hypothyroidism Influenza (03/2019) Complicated by post influenza pneumonia requiring intubation and transfer to tertiary care facility for ECMO. Obstructive sleep apnea Intolerant to CPAP. Type 2 diabetes mellitus Vapes nicotine containing substance Surgical History Surgical History No history of previous surgery Family History Family History Mother Diabetes mellitus Asthma Hypertension Thyroid disorder Grandparent Cancer Diabetes mellitus Social History Social History Social History: Surrogate decision maker: Cindy Delgado, mother. Code status: Full code. Smoking packs per day: 1 Smoking cigarettes per day: 20.0 Smoking status: Current every day smoker Additional smoking assessment comments: 1 pack of cigarettes a day for over 10 years, now vapes. Alcohol intake: current Alcohol use details: Occasional alcohol use in moderation. Substance use: never Living arrangements: with family Additional living arrangements comments: The patient lives in [place] with her mother. Additional occupation/education comments: Unemployed. Spiritual care concerns: No Exam Narrative: GENERAL: Well-appearing, well-nourished, and in no acute distress. Morbid obesity HEAD: Normocephalic, atraumatic. EYES: PERRLA and EOMI. ENT: Nares clear, no rhinorrhea or epistaxis. Mucous membranes moist. Oropharynx without tonsillar hypertrophy exudate or other lesions. NECK: Supple. No adenopathy or masses. CHEST: No respiratory distress. Clear to auscultation. No wheezes rales or rhonchi HEART: Regular rate and rhythm. No murmur heard. Normal peripheral pulses. ABDOMEN: Soft, nontender, nondistended, normal active bowel sounds. MSK: Normal range of motion. No edema. SKIN: Warm, dry, no rash. NEURO: Alert and oriented x3. No focal deficits. PSYCH: Normal mood and affect. Course Vital Signs Vital signs: Vital Signs Temperature 98.2 F 02/09/23 18:36 Pulse Rate 80 02/09/23 18:36 Respiratory Rate 16 02/09/23 18:36 Blood Pressure 159/96 H 02/09/23 18:36 Pulse Oximetry 99 02/09/23 18:36 Oxygen Delivery Room Air 02/09/23 18:36 Temperature 98.7 F 02/09/23 22:56 Pulse Rate 99 02/09/23 22:56 Respiratory Rate 20 02/09/23 22:56 Blood Pressure 171/95 H 02/09/23 22:56 Pulse Oximetry 99 02/09/23 22:56 Oxygen Delivery Room Air 02/09/23 22:55 Medical Decision Making MDM Narrative Medical decision making narra
[2023-02-09 22:02] LABS: Basophils Absolute Auto 0.1 K/mm3 (0.0-0.1); Basophils Percent Auto 0.9 % (0.2-1.2); Eosinophils Absolute Auto 0.4 K/mm3 (0-0.3); Eosinophils Percent Auto 3.9 % (0-4.4); Hemoglobin 13.4 g/dL (12.0-15.0); Immature Granulocyte Absolute 0.07 K/mm3 (0.00-0.031); Immature Granulocyte Percent A 0.8 % (0-0.5); Lymphocytes Absolute Auto 2.26 K/mm3 (0.9-3.2); Lymphocytes Percent Auto 25.1 % (18.3-44.2); Mean Corpuscular HGB Conc 30.5 g/dl (32-36); Mean Corpuscular Hemoglobin 26.5 pg (26-34); Mean Platelet Volume 11.3 fl (7.4-10.4); Monocytes Absolute Auto 0.5 K/mm3 (0.1-0.6); Monocytes Percent Auto 5.1 % (2.6-8.5); Neutrophils Absolute Auto 5.8 K/mm3 (1.3-6.7); Neutrophils Percent Auto 64.2 % (45.5-73.1); Platelet Count Result 354 k/mm3 (150-375); Red Blood Count 5.06 M/mm3 (4.2-5.4); Red Cell Distribution Width 14.8 % (11.5-14.5)
[2023-02-09] MEDS: KETOROLAC 30 MG/ML VIAL (*BKC) IM (22:09)
[2023-02-09] MEDS: ACETAMINOPHEN 500 MG TABLET 1000 MG PO (22:09)
[2023-02-09 22:13] LABS: Alanine Aminotransferase 33 U/L (6-35); Albumin Level 4.4 g/dL (3.5-5.1); Alkaline Phosphatase 94 U/L (38-126); Anion Gap 8 mmol/L (8-16); Aspartate Amino Transferase 30 U/L (14-36); Bilirubin,Total 0.5 mg/dL (0.2-1.3); Blood Urea Nitrogen 11 mg/dL (7-17); Calcium 9.4 mg/dL (8.4-10.2); Carbon Dioxide 26 mmol/L (22-30); Chloride 103 mmol/L (98-107); Estimated Glomerular Filt Rate > 60; Glucose 172 mg/dL (65-110); Potassium 4.4 mmol/L (3.4-5.0); Sodium 137 mmol/L (137-145)
[2023-02-09 22:25] LABS: Troponin I < 0.012 ng/mL (0.000-0.034)
[2023-02-09 22:55] VITALS: O2SAT 100
[2023-02-09 22:56] VITALS: BP 171/95; PULSE 99; RESP 20; TEMP 37.1; O2SAT 99
== END 2023-02-09 22:57 | disposition home or self-care (01) ==
PROVIDERS: Emergency Provider Physician Assistant; PCP Physician Assistant
DX: U07.1 COVID-19 (principal); J06.9 Acute upper respiratory infection, unspecified; J45.909 Unspecified asthma, uncomplicated; I10 Essential (primary) hypertension; E03.9 Hypothyroidism, unspecified; E11.9 Type 2 diabetes mellitus without complications; G47.33 Obstructive sleep apnea (adult) (pediatric); K21.9 Gastro-esophageal reflux disease without esophagitis; F17.299 Nicotine dependence, other tobacco product, with unspecified nicotine-induced disorders; Z87.01 Personal history of pneumonia (recurrent); Z79.84 Long term (current) use of oral hypoglycemic drugs; Z79.85 Long-term (current) use of injectable non-insulin antidiabetic drugs; R94.31 Abnormal electrocardiogram [ECG] [EKG]
CPT/HCPCS: 36415; 71046; 80053; 84484; 85025; 93005; 96372; 99283; A9270; J1885

== ENCOUNTER 2023-03-27 10:10 | Emergency (ER) | payer OTHER, SELFPAY ==
[2023-03-27 10:21] VITALS: BP 147/86; PULSE 86; RESP 16; TEMP 37; O2SAT 98
--- NOTE | 2023-03-27 11:26 | ED.URI ---
HPI - URI/Sore Throat General Chief Complaint: Upper Respiratory Infection Stated Complaint: right ear pain,throat hurts Time Seen by Provider: 03/27/23 11:26 Source: patient Mode of arrival: ambulatory Limitations: no limitations History of Present Illness HPI Narrative: 32-year-old female presents with complaint of sore throat, headache, fatigue for 2 days. Reports right ear pain and drainage starting today. Afebrile. All systems reviewed and negative except as noted above. Related Data Home Medications Medication Instructions Recorded Confirmed dapagliflozin propanediol 10 mg 10 mg PO DAILY 02/24/21 04/06/22 tablet (Farxiga) dulaglutide 0.75 mg/0.5 mL 0.75 mg subcut WEEKLY 04/06/22 04/06/22 subcutaneous pen injector (Trulicity) Allergies Allergy/AdvReac Type Severity Reaction Status Date / Time amoxicillin Allergy Unknown RASH, Verified 03/27/23 10:49 DIFFICULTY BREATHING Review of Systems Review of Systems: CONSTITUTIONAL: Denies fever, chills, or sweats. reports fatigue. EYES: Denies visual changes, redness, or discharge. ENT: Denies rhinorrhea, congestion . Reports sore throat and right ear pain With drainage. CARDIOVASCULAR: Denies chest pain, palpitations, or edema. RESPIRATORY: Denies cough or dyspnea. GASTROINTESTINAL: Denies abdominal pain, nausea, vomiting, or diarrhea. GENITOURINARY: Denies dysuria or hematuria. SKIN: Denies rash or itching. MUSCULOSKELETAL: Denies back pain, joint pain, or myalgia. NEUROLOGIC: Reports headache. Denies numbness, or weakness. PSYCHIATRIC: Denies anxiety or depression. All other systems reviewed are negative, except as documented in HPI. [facility] Past Medical History Medical History Acute kidney injury Anxiety Asthma Depression Gastroesophageal reflux disease Hypertension Hypothyroidism Influenza (03/2019) Complicated by post influenza pneumonia requiring intubation and transfer to tertiary care facility for ECMO. Obstructive sleep apnea Intolerant to CPAP. Type 2 diabetes mellitus Vapes nicotine containing substance Surgical History Surgical History No history of previous surgery Family History Family History Mother Diabetes mellitus Asthma Hypertension Thyroid disorder Grandparent Cancer Diabetes mellitus Social History Social History Social History: Surrogate decision maker: Cindy Delgado, mother. Code status: Full code. Smoking packs per day: 1 Smoking cigarettes per day: 20.0 Smoking status: Current every day smoker Additional smoking assessment comments: 1 pack of cigarettes a day for over 10 years, now vapes. Alcohol intake: current Alcohol use details: Occasional alcohol use in moderation. Substance use: never Living arrangements: with family Additional living arrangements comments: The patient lives in [place] with her mother. Additional occupation/education comments: Unemployed. Spiritual care concerns: No Comments At time of signature, agree with nursing past medical, surgical, social and family history. There is no relevant family history pertinent to the presenting complaint. Exam Narrative: GENERAL: This is a well-nourished, well-developed patient, in no apparent distress. HEAD: normocephalic, atraumatic. EYES: PERRL. Sclera clear/white. Vision is grossly intact. EARS: External ears normal, left ear canal normal. Right ear canal erythematous, yellow drainage with mild swelling. TMs normal without perforation. Hearing grossly intact. NOSE: External nose normal with no obvious nasal discharge, nares without redness, no rhinorrhea. THROAT: Mucous membranes moist, Erythematous with mild swelling, no exudates. NECK: Neck supple, non-tender without lymphadenopathy, masses or thyromegaly. CARDIOVASCULAR: Regul
== END 2023-03-27 11:43 | disposition home or self-care (01) ==
PROVIDERS: Emergency Provider Nurse Practitioner Family; PCP Physician Assistant
DX: J02.0 Streptococcal pharyngitis (principal); H60.91 Unspecified otitis externa, right ear; Z20.822 Contact with and (suspected) exposure to COVID-19; F17.290 Nicotine dependence, other tobacco product, uncomplicated; J45.909 Unspecified asthma, uncomplicated; K21.9 Gastro-esophageal reflux disease without esophagitis; I10 Essential (primary) hypertension; E03.9 Hypothyroidism, unspecified; G47.33 Obstructive sleep apnea (adult) (pediatric); E11.9 Type 2 diabetes mellitus without complications
CPT/HCPCS: 87426; 87804; 87880; 99213; G0463

== ENCOUNTER 2023-06-27 15:35 | Emergency (ER) | payer OTHER, SELFPAY ==
[2023-06-27 15:46] VITALS: BP 156/80; PULSE 92; RESP 20; TEMP 37; O2SAT 100
--- NOTE | 2023-06-27 15:47 | ED.SKABFB ---
HPI - Skin/Abscess/Foreign Bdy General Chief complaint: Skin/Abscess/Foreign Body Stated complaint: Bumps On Body Time Seen by Provider: 06/27/23 15:47 Source: patient Mode of arrival: ambulatory Limitations: no limitations History of Present Illness HPI narrative: Patient is a 32-year-old female who presents with boil on left side of abdomen. Patient reports this started on and has grown significantly in size and tenderness. Does report some drainage at home. Patient states she is prone to boils. Denies any fever, chills, nausea, vomit, diarrhea. Related Data Home Medications Medication Instructions Recorded Confirmed dapagliflozin propanediol 10 mg 10 mg PO DAILY 02/24/21 04/06/22 tablet (Farxiga) dulaglutide 0.75 mg/0.5 mL 0.75 mg subcut WEEKLY 04/06/22 04/06/22 subcutaneous pen injector (Trulicity) Allergies Allergy/AdvReac Type Severity Reaction Status Date / Time amoxicillin Allergy Unknown RASH, Verified 06/27/23 15:40 DIFFICULTY BREATHING Review of Systems Review of Systems: All systems reviewed & are unremarkable except as noted in HPI and below Constitutional: Constitutional: Denies body ache(s), Denies chills, Denies fatigue, Denies fever(s), Denies headache(s), Denies malaise and Denies weakness Eyes: Eyes: Denies blurry vision, Denies irritation and Denies loss of vision ENT: Denies otalgia, Denies headache(s), Denies nasal discharge, Denies sinus pain and Denies sore throat Cardiovascular: Cardiovascular: Denies chest pain, Denies irregular heart rhythm and Denies dyspnea Respiratory: Respiratory: Denies dyspnea Gastrointestinal: Gastrointestinal: Denies abdominal pain, Denies melena, Denies hematochezia, Denies diarrhea, Denies nausea and Denies vomiting Musculoskeletal: Musculoskeletal: Denies back pain, Denies myalgias and Denies arthralgias Integumentary/Breasts: Skin/Breast: Denies pruritus, Denies rash and Reports wounds Neurologic: Denies headache(s), Denies loss of vision and Denies weakness Psychiatric: Psychiatric: Reports no additional psychiatric complaints Endocrine: Endocrine: Denies fatigue PMFSH Past Medical History Medical History Acute kidney injury Anxiety Asthma Depression Gastroesophageal reflux disease Hypertension Hypothyroidism Influenza (03/2019) Complicated by post influenza pneumonia requiring intubation and transfer to tertiary care facility for ECMO. Obstructive sleep apnea Intolerant to CPAP. Type 2 diabetes mellitus Vapes nicotine containing substance Surgical History Surgical History No history of previous surgery Family History Family History Mother Diabetes mellitus Asthma Hypertension Thyroid disorder Grandparent Cancer Diabetes mellitus Social History Social History Social History: Surrogate decision maker: Cindy Delgado, mother. Code status: Full code. Smoking packs per day: 1 Smoking cigarettes per day: 20.0 Smoking status: Current every day smoker Additional smoking assessment comments: 1 pack of cigarettes a day for over 10 years, now vapes. Alcohol intake: current Alcohol use details: Occasional alcohol use in moderation. Substance use: never Living arrangements: with family Additional living arrangements comments: The patient lives in [place] with her mother. Additional occupation/education comments: Unemployed. Spiritual care concerns: No Comments At time of signature, agree with nursing past medical, surgical, social and family history. There is no relevant family history pertinent to the presenting complaint. Exam Const: General: cooperative, healthy appearing, comfortable, no acute distress and well nourished Nutritional Appearance: well nourished Orientation/consciousness: patient oriente
== END 2023-06-27 16:04 | disposition home or self-care (01) ==
PROVIDERS: Emergency Provider Nurse Practitioner Family; PCP Physician Assistant
DX: L02.211 Cutaneous abscess of abdominal wall (principal); L03.311 Cellulitis of abdominal wall; F41.8 Other specified anxiety disorders; K21.9 Gastro-esophageal reflux disease without esophagitis; I10 Essential (primary) hypertension; E03.9 Hypothyroidism, unspecified; E11.9 Type 2 diabetes mellitus without complications; G47.33 Obstructive sleep apnea (adult) (pediatric); J45.909 Unspecified asthma, uncomplicated; F17.210 Nicotine dependence, cigarettes, uncomplicated
CPT/HCPCS: 99213; G0463

== ENCOUNTER 2023-07-12 08:29 | Outpatient (CLI) | payer OTHER, SELFPAY ==
[2023-07-31 14:57] VITALS: BMI 92.9
--- NOTE | 2023-07-31 14:57 | WPDSLEEPSTUD ---
Sleep Study Date of Study: 07/12/23 Ordering Provider: Ebony GuerinBOBO Interpreting Physician: Nuris Salas DO Sleep Study Type: Split Polysomnogram Height: 1.5 m Weight: 208.652 kg Body Mass Index: 92.9 Neck Circumference (inches): 20 [place]: 22 Reason for Sleep Study Previously diagnosed WILLIE. No longer using CPAP. Sleep History The patient is a 32-year-old female with depression, hypothyroidism, asthma, hyperlipidemia, hypertension, diabetes and previously diagnosed sleep apnea that had a sleep study ordered by her primary care for evaluation of sleep apnea. The patient rarely awakens from sleep short of breath. She rarely awakens at night with heartburn, belching or cough. She constantly snores loudly enough that others complain. She occasionally has trouble sleeping when she has a cold. She rarely wakes up gasping for air throughout the night. She frequently has breathing problems at night observed by herself or others. She denies sweating excessively at night. She denies having heart palpitations or irregular heartbeats during the night. She constantly falls asleep during the day but never while driving. He denies sleep paralysis and cataplexy. She denies having trouble at school or work due to sleepiness. He rarely experiences vivid dreamlike scenes upon awakening or falling asleep. She denies feeling afraid of going to sleep. She frequently has nightmares and frequently remembers her dreams. She occasionally has thoughts racing through her mind. She occasionally feels sad, depressed and anxious. She denies having muscular tension. She rarely notices parts of her body jerk. She denies kicking during the night. She rarely has crawling and aching feelings in her legs but denies having leg pain during night. She frequently grinds her teeth during sleep but rarely awakens with morning jaw pain. She is rarely bothered by pain during the day and never awakened by pain during the night. She rarely wakes up feeling stiff in the morning. She denies waking up with sore or achy muscles. She rarely wakes up with pain in the neck, spine and other joints. She goes to bed at 1:00 a.m. on weekdays and between 12-1 a.m. on the weekends. She is able to fall asleep within 5 minutes. She wakes up 3-4 times throughout the night to use the restroom and then placed on her phone. she wakes up at 7:20 a.m. on weekdays and at 10:00 a.m. on the weekends. She typically gets 4-5 hours of sleep per night. She will stay in bed for 30 minutes after waking up in morning. She currently lives with her parents. She denies consuming any caffeinated beverages within 2 hours of bedtime. She denies engaging in physical exercise before bedtime. She will watch television before falling asleep. She will take naps in the afternoon or the evening and they are refreshing. She consumes 3-4 caffeinated beverages per day. She consumes alcoholic beverages on the weekends. She currently smokes half a pack of cigarettes per day. She denies recreational drug use. [facility] Past Medical History Medical History Acute kidney injury Anxiety Asthma Depression Gastroesophageal reflux disease Hypertension Hypothyroidism Influenza (03/2019) Complicated by post influenza pneumonia requiring intubation and transfer to tertiary care facility for ECMO. Obstructive sleep apnea Intolerant to CPAP. Type 2 diabetes mellitus Vapes nicotine containing substance Surgical History Surgical History No history of previous surgery Family History Family History Mother Diabetes mellitus Asthma Hypertension Thyroid disorder Grandparent Cancer Diabetes mellitus Social History Social History Social History: Surrogate decision maker: Cindy Delgado, mother. Code status: Full code.
== END 2023-07-13 07:04 | disposition home or self-care (01) ==
LOC: ANHCSM 08:30
PROVIDERS: PCP Physician Assistant; Visit Provider Physician Assistant
DX: G47.33 Obstructive sleep apnea (adult) (pediatric) (principal)
CPT/HCPCS: 95811

== ENCOUNTER 2023-11-17 07:05 | Observation (INO) | payer OTHER, SELFPAY ==
[2023-11-17] VITALS (17 sets, daily range): BP systolic 90–140; BP diastolic 52–76; PULSE 94–121; RESP 20–37; TEMP 36.2–36.6; O2SAT 90–100; BMI 96.9
--- NOTE | ~2023-11-17 | XR_ITS ---
XR chest 1V portable 11/17/2023 08:16 Indication: Chest pain, cough and dyspnea Procedure: AP portable chest Comparison: Comparison to multiple prior studies sequentially, with oldest reviewed study dated 11/02. Findings: Patchy bilateral airspace disease, compatible with pneumonia. No pleural effusion. Stable c ardiomediastinal silhouette. Impression: 1: Patchy bilateral pneumonia. Reviewed, dictated and finalized at location B. Impression: 1: Patchy bilateral pneumonia.
--- NOTE | ~2023-11-17 | US_ITS ---
EXAMINATION:US venous doppler LE BI INDICATION:Hypoxia and chest pain TECHNIQUE: Multiple grayscale, color flow and Doppler images of the right and left lower extremity de ep venous systems were obtained and reviewed. COMPARISON:Ultrasound dated 11/09/2019 FINDINGS: The venous structures are not adequately visualized to exclude deep venous thrombosis due t o patient body habitus. There is expected Doppler signal in the lower extremity veins. IMPRESSION: 1: Limited study. Cannot exclude deep venous thrombosis. Reviewed, dictated and finalized at location B.
--- NOTE | 2023-11-17 07:15 | ECG_ITS ---
Test Date: 2023-11-17 07:18:16 Measurements Intervals [place] Rate: 116 P: 65 [place]: 151 QRS: 71 QRSD: 92 T: 61 QT: 325 QTc: 453 Interpretive Statements SINUS TACHYCARDIA DELAYED PRECORDIAL R/S TRANSITION MINIMAL Q WAVES- INFERIOR LEADS ABNORMAL ECG No previous ECG available for comparison Electronically Signed On 11-17-2023 08:04:45 CDT by Goldy Iqbal D.O.
[2023-11-17] MEDS: IPRATROPIUM 0.5 MG/ALBUTEROL SULFATE 2.5 MG AMPUL.NEB 3 ML 6 ML INHALATION (07:31)
--- NOTE | 2023-11-17 07:58 | ED.CHESTPAIN ---
HPI - Chest Pain General Chief Complaint: Chest Pain Stated Complaint: cp Source: patient and EMS Mode of arrival: EMS Limitations: no limitations History of Present Illness HPI narrative: This is a 33-year-old female, with this treatment COPD and morbid obesity, brought in by EMS from home with shortness of breath. The patient states for the past 2 days, she has had worsening cough. In the past day she began noticing small amounts red tented sputum. This is associated with a pulling diffuse pain that worsens with cough. She denies any known sick contacts and denies any history DVT or PE. She denies lightheadedness or loss of consciousness. She has no other complaints at this time. EMS reports on arrival, the patient was 87% on room air. She is placed on 4 L nasal cannula with improvement to 93-94%. She was given 324 mg aspirin. Vital signs remarkable for tachycardia with systolic blood pressure in the 140s. Related Data Home Medications Medication Instructions Recorded Confirmed dapagliflozin propanediol 10 mg 10 mg PO DAILY 02/24/21 11/17/23 tablet (Farxiga) fluoxetine 20 mg capsule 20 mg PO DAILY 11/17/23 11/17/23 lisinopril 10 mg tablet 10 mg PO DAILY 11/17/23 11/17/23 omega-3 acid ethyl esters 1 gram 2 cap PO DAILY 11/17/23 11/17/23 capsule Allergies Allergy/AdvReac Type Severity Reaction Status Date / Time amoxicillin Allergy Unknown RASH, Verified 06/27/23 15:40 DIFFICULTY BREATHING Review of Systems Review of Systems: Last menstrual period All systems reviewed & are unremarkable except as noted in HPI and below PMFSH Past Medical History Medical History Anxiety Asthma Depression Gastroesophageal reflux disease Hypertension Hypothyroidism Influenza (03/2019) Complicated by post influenza pneumonia requiring intubation and transfer to tertiary care facility for ECMO. Obstructive sleep apnea Intolerant to CPAP. Type 2 diabetes mellitus Vapes nicotine containing substance Surgical History Surgical History No history of previous surgery Family History Family History Mother Diabetes mellitus Asthma Hypertension Thyroid disorder Grandparent Cancer Diabetes mellitus Social History Social History Social History: Surrogate decision maker: Cindy Delgado, mother. Code status: Full code. Smoking packs per day: 1 Smoking cigarettes per day: 20.0 Years smoked: 16 Smoking pack-years: 16.00 Smoking status: Current every day smoker Tobacco type: cigarettes Additional smoking assessment comments: 1 pack of cigarettes a day for over 10 years, now vapes. Alcohol intake: current Alcohol use details: Occasional alcohol use in moderation. Substance use: never Do You Feel Safe in your Home?: Yes Lack of Transportation: YES Lack of Food: Never True Current Housing: I Have Housing Concerned About Future Housing: No Difficulty Paying Gas/Electric Bills: No Difficulty Paying for Meds: No Currently Unemployed: No Education: Trade/Vocational Certificate Difficulty w/ Childcare or Family Care: No Living arrangements: with family Additional living arrangements comments: The patient lives in [place] with her mother. Additional occupation/education comments: Unemployed. Spiritual care concerns: No Exam Narrative: GENERAL: Well-developed, well-nourished, in mild respiratory distress. Morbidly obese HEAD: Normocephalic, atraumatic. EYES: PERRLA and EOMI. ENT: Nares clear, no rhinorrhea or epistaxis. Mucous membranes moist. Oropharynx without tonsillar hypertrophy exudate or other lesions. NECK: Supple. No JVD CHEST: Tachypneic. Clear to auscultation. Mild respiratory distress. No wheezes rales or rhonchi HEART: Tachycardic with regular rhythm. No murmur
[2023-11-17 08:11] LABS: Basophils Absolute Auto 0.1 K/mm3 (0.0-0.1); Basophils Percent Auto 0.5 % (0.2-1.2); Eosinophils Absolute Auto 0.2 K/mm3 (0-0.3); Eosinophils Percent Auto 1.8 % (0-4.4); Hemoglobin 12.6 g/dL (12.0-15.0); Immature Granulocyte Absolute 0.14 K/mm3 (0.00-0.031); Immature Granulocyte Percent A 1.1 % (0-0.5); Lymphocytes Absolute Auto 2.06 K/mm3 (0.9-3.2); Lymphocytes Percent Auto 16.1 % (18.3-44.2); Mean Corpuscular HGB Conc 32.3 g/dl (32-36); Mean Corpuscular Hemoglobin 27.4 pg (26-34); Mean Corpuscular Volume 84.8 fl (80-100); Mean Platelet Volume 11.5 fl (7.4-10.4); Monocytes Absolute Auto 0.5 K/mm3 (0.1-0.6); Neutrophils Absolute Auto 9.8 K/mm3 (1.3-6.7); Neutrophils Percent Auto 76.5 % (45.5-73.1); Platelet Count Result 268 k/mm3 (150-375); Red Cell Distribution Width 14.8 % (11.5-14.5); White Blood Count 12.8 K/mm3 (4.5-10.0)
[2023-11-17 08:14] LABS: Estimated Glomerular Filt Rate > 60
[2023-11-17 08:20] LABS: Alanine Aminotransferase 26 U/L (6-35); Albumin Level 4.1 g/dL (3.5-5.1); Alkaline Phosphatase 97 U/L (38-126); Anion Gap 6 mmol/L (4-12); Aspartate Amino Transferase 26 U/L (14-36); Bilirubin,Total 0.8 mg/dL (0.2-1.3); Blood Urea Nitrogen 9 mg/dL (7-17); Calcium 8.7 mg/dL (8.4-10.2); Carbon Dioxide 26 mmol/L (22-30); Chloride 100 mmol/L (98-107); Estimated Glomerular Filt Rate > 60; Glucose 275 mg/dL (65-110); Sodium 132 mmol/L (137-145)
[2023-11-17] MEDS: MORPHINE SULFATE (*CRX) 2 MG/ML INJ IV PUSH (08:23)
[2023-11-17 08:30] LABS: NT Pro B Type Natriuretic Pept 185 pg/mL (19.9-100); Troponin I < 0.012 ng/mL (0.000-0.034)
[2023-11-17 08:46] LABS: Influenza A QL RT-PCR Negative (Negative); Influenza B QL RT-PCR Negative (Negative); RSV RNA, RT-PCR Negative (Negative); SARS-CoV-2 RNA PCR Negative (Negative)
[2023-11-17] MEDS: SODIUM CHLORIDE 0.9% IV 1,000 ML 999 ML IV CONT (09:10)
--- NOTE | 2023-11-17 09:54 | PC.NURSE ---
US at bedside for imaging.
[2023-11-17 10:36] LABS: INR 1.1; Prothrombin Time 14.4 Seconds (11.1-14.7)
[2023-11-17 10:37] LABS: Partial Thromboplastin Time 33.1 Seconds (22.3-36.8)
[2023-11-17] MEDS: CEFEPIME 2 GM/NS 50 ML 2 GM/50 ML BAG IVPB (10:39)
[2023-11-17] MEDS: DOXYCYCLINE HYCLATE 100 MG TABLET PO (10:42)
[2023-11-17] MEDS: HEPARIN SODIUM 5,000 UNITS/ML VIAL 9000 UNITS IV PUSH ×2 (11:00→17:36)
[2023-11-17] MEDS: HEPARIN SOD/D5W 100 UNITS/ML 25,000 UNITS/250 ML BAG 15 UNITS IV CONT (11:02)
[2023-11-17 11:08] LABS: Troponin I < 0.012 ng/mL (0.000-0.034)
[2023-11-17 12:19] LABS: Glucose Point of Care 293 mg/dl (65-105)
--- NOTE | 2023-11-17 12:21 | ADMGEN ---
This patient, Claudia Delgado, was admitted to [facility] Surg Room 331-01. Patient/family oriented to hospital policies and general routines including ID bracelet, bed and alarms, visiting hours, pain management, procedures, bathroom and other care routines, personal items, smoking policy, room service/diet, and visiting hours. Information on how to activate the Rapid Response Team has been discussed. Patient/Family are encouraged to report perceived risks to care and to ask questions if they do not understand what they are told or what they should do.
[2023-11-17] MEDS: INSULIN ASPART (*BKC) 100 UNITS/ML 11 UNITS SUB-Q (12:28)
--- NOTE | 2023-11-17 13:47 | ECHO_ITS ---
Patient Info Name: Claudia Delgado Age: 33 years : 1990 Gender: Female Ht: 59 in Wt: 480 lbs BSA: 3.20 m2 HR: 98 bpm BP: 90 / 58 mmHg Heart Rhythm: Tachycardia Technical Quality: Fair Exam Date: 11/17/2023 3:46 PM Exam Location: Echo Lab Patient Status: Outpatient Admit Date: 11/17/2023 Staff Ordering Physician: Dionne Rico PA-C Machine Printer Hose: Ramiro Concepcion RDCS Attending Provider: Satya Mayorga MD Referring Physician: Jacky SOTO; Exam Type: CA echo dop color flow w con Study Info Indications - tachycardia, hypoxia Complete two-dimensional, color flow and Doppler transthoracic echocardiogram is performed with contrast to opacify the left ventricle and to improve the deliniation of the left ventricle endocardial borders. Summary 1. Normal LV size and wall thickness, hyperdynamic LV systolic function, ejection fraction more than 70%; grade 2 diastolic dysfunction. Normal RV size and systolic function. No significant valvular abnormality. Left Ventricle Left ventricular chamber dimension is normal. Left ventricular systolic function is hyperdynamic, estimated at >70%. There is no increased left ventricular wall thickness. The left ventricular diastolic function is grade II diastolic dysfunction. Right Ventricle Right ventricular chamber dimension is normal. Right ventricular systolic function is normal. Left Atria Left atrial chamber dimension is normal. Right Atria Right atrial chamber dimension is normal. Aortic Valve The aortic valve is normal. Pulmonic Valve The pulmonic valve is not well visualized. Mitral Valve The mitral valve has normal leaflets. There is no mitral valve regurgitation. Tricuspid Valve The tricuspid valve leaflets are not well visualized. Pericardium/Pleural There is trivial pericardial effusion. Aorta The aortic root size at the sinus of Valsalva is normal. Left Ventricular Outflow Tract Name Value Normal LVOT 2D LVOT Diameter 1.99 cm LVOT Doppler LVOT Peak Gradient 7 mmHg LVOT Mean Gradient 5 mmHg LVOT VTI 27.90 cm LVOT VTI/AV VTI Ratio 0.95 LVOT Stroke Volume 86.73 ml LVOT CO 7.93 l/min LVOT CI 2.48 L/min/m2 Pulmonic Valve Name Value Normal PV Doppler PV Peak Gradient 6 mmHg Mitral Valve Name Value Normal MV Doppler MV Decel Todd 222.30 cm/s2 MV PHT 0 s MV Area (PHT) 1.76 cm2 4.00-5.00 MV Diastolic Function -------
--- NOTE | 2023-11-17 14:10 | PM.IMHP ---
H&P: HPI History of Present Illness Date/Time: 11/17/23 14:10 Chief Complaint: Chest pain and shortness of breath. Narrative: This is a 33-year-old female smoker with asthma, obstructive sleep apnea, type 2 diabetes, hypertension, hypothyroidism, C diff colitis, morbid obesity, post influenza pneumonia requiring intubation and transfer to [facility] for ECMO in March 2019, and occasional medication noncompliance who presented to the emergency department earlier today from home for evaluation of chest pain and shortness of breath. The patient provides the following history. She has not been feeling well since Monday with symptoms to include cough which is occasionally productive of blood-tinged sputum, sore throat, sweats, runny nose, shortness of breath with wheezing, and mild anterior chest discomfort with coughing. She is wheezing and is using her rescue inhaler more often. She had loose stools the 1st couple of days but none today. She denies documented fever, syncope, near syncope, palpitations, vomiting, and calf pain. No history of venous thromboembolism. 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 In the ED: SpO2 was 87% on room air on arrival and she is currently on 4 L nasal cannula. She was tachycardic and tachypneic but that has improve after receiving a nebulizer treatment. She is afebrile. Labs were significant for WBC count of 12.8, sodium 132, BUN 9, glucose 275, troponin less than 0.012, proBNP 185. She tested negative for influenza, RSV, and COVID. Chest x-ray showed patchy bilateral pneumonia. Lower extremity venous Doppler ultrasounds were on diagnostic due to the patient's body habitus. CTA of the chest was unable to be performed due to her size. Reportedly several other other nearby facilities were contacted but do not have a CT scanner to accommodate the patient either. She received a dose of cefepime for pneumonia and was started on a heparin drip for possible pulmonary embolism and she is being admitted in this setting for further treatment and evaluation. Review of Systems Review of Systems: 12 systems were reviewed and are negative except for as per HPI. [facility] Past Medical History Medical History (Updated 11/17/23 @ 21:51 by Dionne Rico PA-C) Anxiety Asthma Depression Gastroesophageal reflux disease Hypertension Hypothyroidism Influenza (03/2019) Complicated by post influenza pneumonia requiring intubation and transfer to tertiary care facility for ECMO. Obstructive sleep apnea Tobacco dependence Type 2 diabetes mellitus Surgical History Surgical History No history of previous surgery Family History Family History Mother Diabetes mellitus Asthma Hypertension Thyroid disorder Grandparent Cancer Diabetes mellitus Social History Social History (Updated 11/17/23 @ 21:48 by Dionne Rico PA-C) Social History: Surrogate decision maker: Cindy Delgado, mother. Code status: Full code. Smoking packs per day: 1 Smoking cigarettes per day: 20.0 Years smoked: 16 Smoking pack-years: 16.00 Smoking status: Current every day smoker Tobacco type: cigarettes Additional smoking assessment comments: 1 pack of cigarettes a day for over 10 years. Alcohol intake: current Alcohol use details: Occasional alcohol use in moderation. Substance use: never Do You Feel Safe in your Home?: Yes Lack of Transportation: YES Lack of Food: Never True Current Housing: I Have Housing Concerned About Future Housing: No Difficulty Paying Gas/Electric Bills: No Difficulty Paying for Meds: No Currently Unemployed: No Education: Trade/Vocational Certificate Difficulty w/ Childcare or Family Care: No Living arrangements: with family Additional living arrangements comments: The patient lives in [place] with
[2023-11-17] MEDS: IPRATROPIUM 0.5 MG/ALBUTEROL SULFATE 2.5 MG AMPUL.NEB 3 ML INHALATION ×2 (14:14→20:20)
[2023-11-17 14:15] LABS: Lactic Acid Reflex 1.8 mmol/L (0.7-2.0)
[2023-11-17 14:19] LABS: Partial Thromboplastin Time 52.1 Seconds (22.3-36.8)
[2023-11-17 14:31] LABS: D Dimer 0.32 ug/mL (<0.48)
[2023-11-17 14:37] LABS: CRP 16.2 mg/dL (<1.0)
[2023-11-17 14:53] LABS: Procalcitonin 0.2 ng/mL
[2023-11-17] MEDS: AZITHROMYCIN 500 MG/NS 250 ML 500 MG/250 ML BAG 250 MG IVPB (15:29)
[2023-11-17] MEDS: PERFLUTREN LIPID MICROSPHERES 1.5 ML VIAL DILUTED TO 10 ML TOTAL VOLUME IV PUSH (15:45)
[2023-11-17 15:50] LABS: Hemoglobin A1C 8.5 % (<5.7)
--- NOTE | 2023-11-17 16:09 | IVDEFINITY ---
Prior to administration of IV Definity the patient was educated on the risks and benefits of the imaging enhancing agent including potential adverse side effects. The patient verbalized understanding. Allergies were verified. No exclusion criteria were identified and at least one of the following inclusion criteria were met: 1) physician request, 2) patient technically difficult to image (per the [place] [employer] Echocardi[employer] guidelines of two or more segments not discernable within the apical view), or 3) questionable left ventricular function. ?
[2023-11-17] MEDS: ACETAMINOPHEN 325 MG TABLET 650 MG PO ×2 (16:38→22:39)
[2023-11-17 16:45] LABS: Glucose Point of Care 294 mg/dl (65-105)
[2023-11-17 16:50] LABS: MRSA (PCR) NOT DETECTED (NOT DETECTE)
[2023-11-17] MEDS: INSULIN ASPART (*BKC) 100 UNITS/ML SUB-Q ×2 (17:13→20:14)
[2023-11-17 17:30] LABS: Partial Thromboplastin Time 36.7 Seconds (22.3-36.8)
[2023-11-17 20:08] LABS: Glucose Point of Care 293 mg/dl (65-105)
[2023-11-17] MEDS: guaiFENesin 12 HR 600 MG TABCR 1200 MG PO (20:14)
[2023-11-17 23:06] LABS: Strep Group A RT-PCR NOT DETECTED (Negative)
[2023-11-18] VITALS (20 sets, daily range): BP systolic 110–134; BP diastolic 63–78; PULSE 62–96; RESP 16–32; TEMP 35.9–36.9; O2SAT 92–98
[2023-11-18] MEDS: IPRATROPIUM 0.5 MG/ALBUTEROL SULFATE 2.5 MG AMPUL.NEB 3 ML INHALATION ×4 (01:59→21:08)
[2023-11-18] MEDS: ACETAMINOPHEN 325 MG TABLET 650 MG PO ×3 (05:58→22:06)
[2023-11-18 06:24] LABS: Basophils Absolute Auto 0.1 K/mm3 (0.0-0.1); Basophils Percent Auto 0.8 % (0.2-1.2); Eosinophils Absolute Auto 0.3 K/mm3 (0-0.3); Eosinophils Percent Auto 3.4 % (0-4.4); Hematocrit 39.9 % (37.0-47.0); Hemoglobin 12.1 g/dL (12.0-15.0); Immature Granulocyte Absolute 0.16 K/mm3 (0.00-0.031); Immature Granulocyte Percent A 1.6 % (0-0.5); Lymphocytes Absolute Auto 1.44 K/mm3 (0.9-3.2); Lymphocytes Percent Auto 14.6 % (18.3-44.2); Mean Corpuscular HGB Conc 30.3 g/dl (32-36); Mean Corpuscular Hemoglobin 26.9 pg (26-34); Mean Corpuscular Volume 88.9 fl (80-100); Mean Platelet Volume 11.5 fl (7.4-10.4); Monocytes Absolute Auto 0.4 K/mm3 (0.1-0.6); Monocytes Percent Auto 4.3 % (2.6-8.5); Neutrophils Absolute Auto 7.4 K/mm3 (1.3-6.7); Neutrophils Percent Auto 75.3 % (45.5-73.1); Platelet Count Result 271 k/mm3 (150-375); Red Blood Count 4.49 M/mm3 (4.2-5.4); Red Cell Distribution Width 15.5 % (11.5-14.5); White Blood Count 9.9 K/mm3 (4.5-10.0)
[2023-11-18 06:41] LABS: Anion Gap 7 mmol/L (4-12); Blood Urea Nitrogen 8 mg/dL (7-17); Calcium 8.7 mg/dL (8.4-10.2); Carbon Dioxide 28 mmol/L (22-30); Chloride 100 mmol/L (98-107); Estimated Glomerular Filt Rate > 60; Glucose 221 mg/dL (65-110); Sodium 135 mmol/L (137-145)
[2023-11-18 07:59] LABS: Glucose Point of Care 243 mg/dl (65-105)
--- NOTE | 2023-11-18 08:53 | PC.NURSE ---
On 11/18/23, the student, [Virgen Mejia], provided care and completed [facility] documentation on this patient. I have reviewed the student's documentation and agree with the findings.
[2023-11-18] MEDS: guaiFENesin 12 HR 600 MG TABCR 1200 MG PO ×2 (10:16→20:59)
[2023-11-18] MEDS: ENOXAPARIN 40 MG/0.4 ML SYRINGE SUB-Q (10:17)
[2023-11-18 11:48] LABS: Glucose Point of Care 256 mg/dl (65-105)
--- NOTE | 2023-11-18 11:49 | PC.NURSE ---
On 11/18/23, the student, [Virgen Mejia], provided care and completed [facility] documentation on this patient. I have reviewed the student's documentation and agree with the findings.
[2023-11-18 11:51] LABS: Free T4 Free Thyroxine Reflex 1.36 ng/dL (0.78-2.19)
[2023-11-18] MEDS: INSULIN ASPART (*BKC) 100 UNITS/ML SUB-Q ×3 (13:03→20:59)
[2023-11-18 13:24] LABS: Total Triiodothyronine (T3) 1.08 NG/ML (0.97-1.69)
[2023-11-18] MEDS: AZITHROMYCIN 500 MG/NS 250 ML 500 MG/250 ML BAG 250 MG IVPB (15:53)
--- NOTE | 2023-11-18 16:04 | PM.IMPN ---
Progress Note: A&P Assessment and Plan (1) Acute respiratory failure with hypoxia: Code(s): J96.01 - Acute respiratory failure with hypoxia Status: Resolved (2) Bilateral pneumonia: Code(s): J18.9 - Pneumonia, unspecified organism Status: Acute (3) Diarrhea: Code(s): R19.7 - Diarrhea, unspecified Status: Acute (4) Asthma: Code(s): J45.909 - Unspecified asthma, uncomplicated Status: Acute (5) Obstructive sleep apnea: Code(s): G47.33 - Obstructive sleep apnea (adult) (pediatric) Status: Acute (6) Type 2 diabetes mellitus: Code(s): E11.9 - Type 2 diabetes mellitus without complications Status: Acute (7) Tobacco dependence: Code(s): F17.200 - Nicotine dependence, unspecified, uncomplicated Status: Acute (8) Non compliance with medical treatment: Code(s): Z91.199 - Patient's noncompliance with other medical treatment and regimen due to unspecified reason Status: Acute Plan The patient presented to the emergency department for evaluation of URI symptoms, shortness of breath, and chest discomfort as detailed in HPI. Labs, imaging, EKG, and all reports were personally reviewed. History is supportive of pneumonia seen on chest x-ray. Pulmonary embolism seems unlikely and her D-dimer is normal. She has been started on azithromycin and ceftriaxone. Attempt sputum for culture. Check Legionella and pneumococcal antigens as well as mycoplasma IgM. She does have some wheezing however glucose is nearly 300 thus will hold on steroids for now. Continue scheduled bronchodilators. Mucinex and Cornet ordered to help mobilize secretions. Wean oxygen as tolerated. CPAP will be provided for the patient to use while hospitalized. Smoking cessation is imperative and was discussed however she is not motivated at this time. She declines the need for a nicotine patch. Send stool to rule out C diff given given history of such. Initiate sliding scale insulin, Accu-Cheks, and hypoglycemic protocol. Check A1c. We discussed her intermittent compliance with medications and how important it is to take them to prevent complications down the road. Calorie deficit and increasing activities recommended for weight loss. Her home medications will be reviewed and resumed as appropriate. Findings and treatment plan were discussed with the patient. 11/17: Yesterday night Heparin drip has been discontinued. Blood culture until today no growth. Limited study ultrasound of lower extremity Subjective Date/time seen: 11/18/23 16:04 Interval history: Patient is currently saturating well on 2 L. heparin drip has been discontinued. Denies any diarrhea. Review of Systems Review of Systems: 12 systems were reviewed and are negative except for as per HPI. All systems reviewed & are unremarkable except as noted in HPI and below Exam Narrative: General: Morbidly obese female in the semi-Gandara position in bed. Weight: 217.8 kg. BMI: 97. HEENT: PERRL, EOMI. Sclera anicteric. Oral mucosa moist. Oropharynx is crowded. Neck: Supple. Exam limited due to neck circumference. Respiratory: Respirations are nonlabored and she is being in full sentences. Currently on 2 L nasal cannula. Lung sounds are diminished with expiratory wheezing. Cardiovascular: Regular rate and rhythm with S1-S2. Gastrointestinal: Abdomen is soft, morbidly obese, nontender, and nondistended with positive bowel sounds. Skin: Warm and dry. Extremities: No cyanosis or clubbing. Legs are large without significant pitting. No palpable knots or cords. Negative Florentin sign bilaterally. Neurological: Alert. Cranial nerves 2-12 are grossly intact. No gross focal deficits to casual conversation. Psychiatric: Pleasant and cooperative with normal mood and affect. Objective Data Vital Signs Vital Signs: Vital Signs - 24 hr 11/17/23 17:05 11/17/23 20:00 11/17/23 20:20 Temperature 97.1 F L 97.4 F L Pulse
[2023-11-18 16:29] LABS: Glucose Point of Care 252 mg/dl (65-105)
[2023-11-18 19:47] LABS: Glucose Point of Care 275 mg/dl (65-105)
[2023-11-19] VITALS (20 sets, daily range): BP systolic 101–123; BP diastolic 50–71; PULSE 78–98; RESP 16–23; TEMP 35.5–36.2; O2SAT 83–99
[2023-11-19] MEDS: IPRATROPIUM 0.5 MG/ALBUTEROL SULFATE 2.5 MG AMPUL.NEB 3 ML INHALATION ×4 (02:59→20:31)
[2023-11-19 06:52] LABS: Hematocrit 36.5 % (37.0-47.0); Hemoglobin 11.1 g/dL (12.0-15.0); Mean Corpuscular HGB Conc 30.4 g/dl (32-36); Mean Corpuscular Hemoglobin 26.7 pg (26-34); Mean Corpuscular Volume 87.7 fl (80-100); Mean Platelet Volume 11.6 fl (7.4-10.4); Platelet Count Result 263 k/mm3 (150-375); Red Blood Count 4.16 M/mm3 (4.2-5.4); Red Cell Distribution Width 15.4 % (11.5-14.5); White Blood Count 8.8 K/mm3 (4.5-10.0)
[2023-11-19 07:05] LABS: Alanine Aminotransferase 28 U/L (6-35); Albumin Level 3.7 g/dL (3.5-5.1); Alkaline Phosphatase 86 U/L (38-126); Anion Gap 6 mmol/L (4-12); Aspartate Amino Transferase 28 U/L (14-36); Bilirubin,Total 0.5 mg/dL (0.2-1.3); Blood Urea Nitrogen 8 mg/dL (7-17); Calcium 8.8 mg/dL (8.4-10.2); Carbon Dioxide 28 mmol/L (22-30); Chloride 100 mmol/L (98-107); Estimated Glomerular Filt Rate > 60; Glucose 213 mg/dL (65-110); Potassium 3.7 mmol/L (3.4-5.0); Sodium 134 mmol/L (137-145)
[2023-11-19 07:27] LABS: Glucose Point of Care 217 mg/dl (65-105)
[2023-11-19] MEDS: ENOXAPARIN 40 MG/0.4 ML SYRINGE SUB-Q (08:22)
[2023-11-19] MEDS: INSULIN ASPART (*BKC) 100 UNITS/ML SUB-Q ×4 (08:23→21:38)
[2023-11-19] MEDS: guaiFENesin 12 HR 600 MG TABCR 1200 MG PO ×2 (08:23→21:43)
[2023-11-19] MEDS: ACETAMINOPHEN 325 MG TABLET 650 MG PO ×3 (08:38→21:49)
--- NOTE | 2023-11-19 09:56 | PM.IMPN ---
Progress Note: A&P Assessment and Plan (1) Acute respiratory failure with hypoxia: Code(s): J96.01 - Acute respiratory failure with hypoxia Status: Resolved (2) Bilateral pneumonia: Code(s): J18.9 - Pneumonia, unspecified organism Status: Acute (3) Diarrhea: Code(s): R19.7 - Diarrhea, unspecified Status: Acute (4) Asthma: Code(s): J45.909 - Unspecified asthma, uncomplicated Status: Acute (5) Obstructive sleep apnea: Code(s): G47.33 - Obstructive sleep apnea (adult) (pediatric) Status: Acute (6) Type 2 diabetes mellitus: Code(s): E11.9 - Type 2 diabetes mellitus without complications Status: Acute (7) Tobacco dependence: Code(s): F17.200 - Nicotine dependence, unspecified, uncomplicated Status: Acute (8) Non compliance with medical treatment: Code(s): Z91.199 - Patient's noncompliance with other medical treatment and regimen due to unspecified reason Status: Acute Plan The patient presented to the emergency department for evaluation of URI symptoms, shortness of breath, and chest discomfort as detailed in HPI. Labs, imaging, EKG, and all reports were personally reviewed. History is supportive of pneumonia seen on chest x-ray. Pulmonary embolism seems unlikely and her D-dimer is normal. She has been started on azithromycin and ceftriaxone. Attempt sputum for culture. Check Legionella and pneumococcal antigens as well as mycoplasma IgM. She does have some wheezing however glucose is nearly 300 thus will hold on steroids for now. Continue scheduled bronchodilators. Mucinex and Cornet ordered to help mobilize secretions. Wean oxygen as tolerated. CPAP will be provided for the patient to use while hospitalized. Smoking cessation is imperative and was discussed however she is not motivated at this time. She declines the need for a nicotine patch. Send stool to rule out C diff given given history of such. Initiate sliding scale insulin, Accu-Cheks, and hypoglycemic protocol. Check A1c. We discussed her intermittent compliance with medications and how important it is to take them to prevent complications down the road. Calorie deficit and increasing activities recommended for weight loss. Her home medications will be reviewed and resumed as appropriate. Findings and treatment plan were discussed with the patient. 11/17: Yesterday night Heparin drip has been discontinued. Blood culture until today no growth. Limited study ultrasound of lower extremity 11/18: Today we discontinued antibiotics and there is no evidence of infection. Patient will undergo ventilation perfusion scan as mentioned about cannot exclude the peripheral PE. Patient needs to be evaluated for obesity hypoventilation syndrome as an outpatient. Believe it co exist with her WILLIE. Patient with significantly benefit from bariatric surgery or further weight loss regimen. Subjective Date/time seen: 11/19/23 09:56 Interval history: Patient denies of any shortness of breath or palpitation. Tomorrow the patient will undergo ventilation perfusion scan even though it it cannot exclude peripheral PE . Patient was unable to undergo CT due to morbid obesity. Today patient complains of vaginal bleeding. Patient reports her last menstrual period was at the age of 17 and never used any contraceptives. Gynecology will be consulted. Patient needs to be evaluated to 4 obesity hypoventilation syndrome as an outpatient. Patient will significantly benefit from weight loss at least 25-30%. Late in the afternoon nursing team called reporting patient is saturating well in room air but evidence of occasional tachycardia in 130. Advised the nursing team to monitor the heart rate as it can be one of the possible symptoms of pulmonary embolus. Review of Systems Review of Systems: 12 systems were reviewed and are negative except for as per HPI. All systems reviewed & are unremarkable excep
--- NOTE | 2023-11-19 10:14 | WPDCN ---
Assessment and Plan Assessment and plan (1) Amenorrhea: Code(s): N91.2 - Amenorrhea, unspecified Status: Acute Assessment and Plan: 15 years of amenorrhea and now bleeding. Discussed with the patient the importance of following up after discharge to work up. Risks of not having cycle including hemorrhaging, precancerous, and cancerous changes discussed. Recommend outpatient appointment and hysteroscopy with D&C. Patient voices understanding and agrees to plan. HPI Data of Consult Date/Time: 11/19/23 10:14 Requesting Physician: Satya Mayorga MD Primary Care Provider: Ebony Guerin, PA Consult Narrative Reason for consult: vaginal bleeding Narrative: Claudia Delgado is a 33 year old female G0 admitted with respiratory distress. Patient noted vaginal bleeding when admitted which is light and now down to spotting. Patient states she has not had a prior cycle since age 17 when she was told she would not be able to have children due to her size. She has never seen a senior packaging engineer. [facility] Past Medical History Medical History (Updated 11/19/23 @ 10:17 by Nadia Almanza MD) Anxiety Asthma Depression Gastroesophageal reflux disease Hypertension Hypothyroidism Influenza (03/2019) Complicated by post influenza pneumonia requiring intubation and transfer to tertiary care facility for ECMO. Obstructive sleep apnea Tobacco dependence Type 2 diabetes mellitus Surgical History Surgical History No history of previous surgery Family History Family History Mother Diabetes mellitus Asthma Hypertension Thyroid disorder Grandparent Cancer Diabetes mellitus Social History Social History (Updated 11/17/23 @ 21:48 by Dionne Rico PA-C) Social History: Surrogate decision maker: Cindy Delgado, mother. Code status: Full code. Smoking packs per day: 1 Smoking cigarettes per day: 20.0 Years smoked: 16 Smoking pack-years: 16.00 Smoking status: Current every day smoker Tobacco type: cigarettes Additional smoking assessment comments: 1 pack of cigarettes a day for over 10 years. Alcohol intake: current Alcohol use details: Occasional alcohol use in moderation. Substance use: never Do You Feel Safe in your Home?: Yes Lack of Transportation: YES Lack of Food: Never True Current Housing: I Have Housing Concerned About Future Housing: No Difficulty Paying Gas/Electric Bills: No Difficulty Paying for Meds: No Currently Unemployed: No Education: Trade/Vocational Certificate Difficulty w/ Childcare or Family Care: No Living arrangements: with family Additional living arrangements comments: The patient lives in [place] with her mother. Additional occupation/education comments: Unemployed. Spiritual care concerns: No Meds Home Medications and Allergies Home Medications Medication Instructions Recorded Confirmed Type dapagliflozin propanediol 10 mg 10 mg PO DAILY 02/24/21 11/17/23 History tablet (Farxiga) albuterol sulfate 90 mcg/actuation 2 puff inhalation QID PRN 04/06/21 11/17/23 Rx aerosol inhaler shortness of breath or wheezing #6.7 grams inhalational spacing device #1 ea 04/06/22 11/17/23 Rx (Aerochamber Plus Z Stat spacer) fluoxetine 20 mg capsule 20 mg PO DAILY 11/17/23 11/17/23 History lisinopril 10 mg tablet 10 mg PO DAILY 11/17/23 11/17/23 History omega-3 acid ethyl esters 1 gram 2 cap PO DAILY 11/17/23 11/17/23 History capsule Allergies Allergy/AdvReac Type Severity Reaction Status Date / Time amoxicillin Allergy Unknown RASH, Verified 06/27/23 15:40 DIFFICULTY BREATHING Vital Signs Vital Signs - 24 hr 11/18/23 11:44 11/18/23 13:49 11/18/23 13:49 Temperature 96.8 F L Pulse Rate 87 94 Respiratory Rate 32 H 20 Blood Pressure 122/76 Pulse Oximetry 9
--- NOTE | 2023-11-19 10:51 | PC.NURSE ---
Patient sitting at the side of the bed. Reports abdominal pain. Having small bloody discharge from vaginal area. MD aware. [facility] SANDER consult added.
[2023-11-19 11:27] LABS: Glucose Point of Care 310 mg/dl (65-105)
[2023-11-19] MEDS: AZITHROMYCIN 500 MG/NS 250 ML 500 MG/250 ML BAG 250 MG IVPB (13:42)
--- NOTE | 2023-11-19 15:42 | PC.NURSE ---
1540: Spoke with and made him aware patient is off the NC and continues to saturate mid to upper 90's on RA. Patient has also has brief period of unsustained tachycardia. said to watch her today and he will keep a close eye on her as well.
[2023-11-19 16:26] LABS: Glucose Point of Care 287 mg/dl (65-105)
[2023-11-19 20:32] LABS: Glucose Point of Care 264 mg/dl (65-105)
[2023-11-20] VITALS (11 sets, daily range): BP systolic 117–141; BP diastolic 55–65; PULSE 73–92; RESP 14–24; TEMP 36.1–36.4; O2SAT 91–100; BMI 95.5
[2023-11-20] MEDS: IPRATROPIUM 0.5 MG/ALBUTEROL SULFATE 2.5 MG AMPUL.NEB 3 ML INHALATION ×3 (02:50→13:32)
[2023-11-20] MEDS: ACETAMINOPHEN 325 MG TABLET 650 MG PO (06:01)
[2023-11-20] MEDS: WATER FOR IRRIGATION, STERILE 500 ML BOTTLE (06:12)
[2023-11-20 06:17] LABS: Hemoglobin 11.3 g/dL (12.0-15.0); Mean Corpuscular HGB Conc 30.5 g/dl (32-36); Mean Corpuscular Hemoglobin 26.8 pg (26-34); Mean Corpuscular Volume 87.7 fl (80-100); Mean Platelet Volume 11.8 fl (7.4-10.4); Platelet Count Result 288 k/mm3 (150-375); Red Blood Count 4.22 M/mm3 (4.2-5.4); Red Cell Distribution Width 15.2 % (11.5-14.5); White Blood Count 8.7 K/mm3 (4.5-10.0)
[2023-11-20 06:28] LABS: Alanine Aminotransferase 27 U/L (6-35); Albumin Level 3.7 g/dL (3.5-5.1); Alkaline Phosphatase 92 U/L (38-126); Anion Gap 8 mmol/L (4-12); Aspartate Amino Transferase 27 U/L (14-36); Bilirubin,Total 0.4 mg/dL (0.2-1.3); Blood Urea Nitrogen 7 mg/dL (7-17); Calcium 8.9 mg/dL (8.4-10.2); Carbon Dioxide 27 mmol/L (22-30); Chloride 99 mmol/L (98-107); Estimated Glomerular Filt Rate > 60; Glucose 199 mg/dL (65-110); Potassium 3.8 mmol/L (3.4-5.0); Sodium 134 mmol/L (137-145)
[2023-11-20 07:53] LABS: Glucose Point of Care 218 mg/dl (65-105)
[2023-11-20] MEDS: INSULIN ASPART (*BKC) 100 UNITS/ML SUB-Q ×2 (09:14→12:22)
[2023-11-20] MEDS: ENOXAPARIN 40 MG/0.4 ML SYRINGE SUB-Q (09:14)
[2023-11-20] MEDS: guaiFENesin 12 HR 600 MG TABCR 1200 MG PO (09:15)
--- NOTE | 2023-11-20 09:36 | ECG_ITS ---
Test Date: 2023-11-20 09:56:55 Measurements Intervals [place] Rate: 79 P: 58 WV: 156 QRS: 31 QRSD: 110 T: 41 QT: 390 QTc: 449 Interpretive Statements SINUS RHYTHM DELAYED PRECORDIAL R/S TRANSITION CONSIDER INFERIOR INFARCT, AGE INDETERMINATE BASELINE ARTIFACT- I, III, AVL ABNORMAL ECG Compared to ECG 11/17/2023 07:18:16 HEART RATE HAS DECREASED Electronically Signed On 11-20-2023 11:08:42 CDT by Goldy Iqbal D.O.
[2023-11-20] MEDS: MORPHINE SULFATE (*CRX) 2 MG/ML INJ IV PUSH (09:45)
[2023-11-20 10:40] LABS: Troponin I < 0.012 ng/mL (0.000-0.034)
[2023-11-20 11:46] LABS: Glucose Point of Care 203 mg/dl (65-105)
--- NOTE | 2023-11-20 16:18 | PM.DS ---
DS: Admitting Diagnosis Discharge Date 11/20/2023 Admitting Diagnosis Upper Respiratory Infection DS: Discharge Diagnosis Discharge Diagnosis (1) Acute respiratory failure with hypoxia: Code(s): J96.01 - Acute respiratory failure with hypoxia Status: Resolved (2) Bilateral pneumonia: Code(s): J18.9 - Pneumonia, unspecified organism Status: Acute (3) Diarrhea: Code(s): R19.7 - Diarrhea, unspecified Status: Acute (4) Asthma: Code(s): J45.909 - Unspecified asthma, uncomplicated Status: Acute (5) Obstructive sleep apnea: Code(s): G47.33 - Obstructive sleep apnea (adult) (pediatric) Status: Acute (6) Type 2 diabetes mellitus: Code(s): E11.9 - Type 2 diabetes mellitus without complications Status: Acute (7) Tobacco dependence: Code(s): F17.200 - Nicotine dependence, unspecified, uncomplicated Status: Acute (8) Non compliance with medical treatment: Code(s): Z91.199 - Patient's noncompliance with other medical treatment and regimen due to unspecified reason Status: Acute Plan This is a 33-year-old female smoker with asthma, obstructive sleep apnea, type 2 diabetes, hypertension, hypothyroidism, C diff colitis, morbid obesity, post influenza pneumonia requiring intubation and transfer to [facility] for ECMO in March 2019, and occasional medication noncompliance who presented to the emergency department earlier today from home for evaluation of chest pain and shortness of breath. The patient provides the following history. She has not been feeling well since Monday with symptoms to include cough which is occasionally productive of blood-tinged sputum, sore throat, sweats, runny nose, shortness of breath with wheezing, and mild anterior chest discomfort with coughing. She is wheezing and is using her rescue inhaler more often. She had loose stools the 1st couple of days but none today. She denies documented fever, syncope, near syncope, palpitations, vomiting, and calf pain. No history of venous thromboembolism. 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 In the ED: SpO2 was 87% on room air on arrival and she is currently on 4 L nasal cannula. She was tachycardic and tachypneic but that has improve after receiving a nebulizer treatment. She is afebrile. Labs were significant for WBC count of 12.8, sodium 132, BUN 9, glucose 275, troponin less than 0.012, proBNP 185. She tested negative for influenza, RSV, and COVID. Chest x-ray showed patchy bilateral pneumonia. Lower extremity venous Doppler ultrasounds were on diagnostic due to the patient's body habitus. CTA of the chest was unable to be performed due to her size. Reportedly several other other nearby facilities were contacted but do not have a CT scanner to accommodate the patient either. She received a dose of cefepime for pneumonia and was started on a heparin drip for possible pulmonary embolism and she is being admitted in this setting for further treatment and evaluation.Night team patient saturated well on 2 L NC heparin drip has been discontinued. 11/18: Patient denies of any shortness of breath or palpitation. Tomorrow the patient will undergo ventilation perfusion scan even though it it cannot exclude peripheral PE . Patient was unable to undergo CT due to morbid obesity. Today patient complains of vaginal bleeding. Patient reports her last menstrual period was at the age of 17 and never used any contraceptives. Gynecology will be consulted. Patient needs to be evaluated to 4 obesity hypoventilation syndrome as an outpatient. Patient will significantly benefit from weight loss at least 25-30%. Late in the afternoon nursing team called reporting patient is saturating well in room air but evidence of occasional tachycardia in 130. Advised the nursing team to monitor the heart rate as it can be one of the possible symptoms of pulmonary embo
[2023-11-21 17:59] LABS: Mycoplasma IgM Antibody Titer 99 U/mL
[2023-11-21 19:08] LABS: Pneumococcal Antigen Urine NOT DETECTED
[2023-11-22 01:04] LABS: Legionella pneumophila Ag Ur NOT DETECTED
== END 2023-11-20 16:41 | disposition home or self-care (01) ==
LOC: ANHED 07:33 → ANH3MEDSUR 11:34
PROVIDERS: Physician Assistant; Admitting Provider Family Medicine; Emergency Provider Preventive Medicine Aerospace Medicine; PCP Physician Assistant; Visit Provider General Practice
DX: J96.01 Acute respiratory failure with hypoxia (principal); J18.9 Pneumonia, unspecified organism; R00.0 Tachycardia, unspecified; R19.7 Diarrhea, unspecified; N91.2 Amenorrhea, unspecified; J45.909 Unspecified asthma, uncomplicated; E11.9 Type 2 diabetes mellitus without complications; E03.9 Hypothyroidism, unspecified; I10 Essential (primary) hypertension; G47.33 Obstructive sleep apnea (adult) (pediatric); K21.9 Gastro-esophageal reflux disease without esophagitis; F41.9 Anxiety disorder, unspecified; F32.A Depression, unspecified; F17.290 Nicotine dependence, other tobacco product, uncomplicated; Z20.822 Contact with and (suspected) exposure to COVID-19; Z79.84 Long term (current) use of oral hypoglycemic drugs; Z79.51 Long term (current) use of inhaled steroids; E66.01 Morbid (severe) obesity due to excess calories; Z68.45 Body mass index [BMI] 70 or greater, adult; Z91.199 Patient's noncompliance with other medical treatment and regimen due to unspecified reason
CPT/HCPCS: 36415; 71045; 80048; 80053; 82948; 83036; 83605; 83880; 84145; 84439; 84443; 84480; 84484; 85025; 85027; 85380; 85610; 85730; 86140; 86738; 87040; 87070; 87205; 87449; 87637; 87641; 87651; 87899; 93005; 93970; 94640; 94667; 94668; 96365; 96366; 96367; 96372; 96375; 99285; A9270; C8929; G0378; G0379; J0456; J0692; J0696; J1644; J1650; J1815; J2270; J7030; Q9957

== ENCOUNTER 2024-03-13 08:35 | Observation (INO) | payer OTHER, SELFPAY ==
[2024-03-13] VITALS (16 sets, daily range): BP systolic 123–172; BP diastolic 68–88; PULSE 80–99; RESP 17–25; TEMP 36.4–37.4; O2SAT 90–98
--- NOTE | ~2024-03-13 | XR_ITS ---
XR chest 1V portable 03/13/2024 09:02 Indication: Shortness of breath Procedure: AP portable chest Comparison: Comparison to multiple prior studies sequentially, with oldest reviewed study dated 04/06. Findings: Cardiomegaly. Mild interstitial edema. No significant effusion or pneumothorax. Impression: 1: Cardiomegaly with mild interstitial edema. Reviewed, dictated and finalized at location A. R TUBE CUTTER Impression: 1: Cardiomegaly with mild interstitial edema.
--- NOTE | 2024-03-13 08:57 | ED.GENADULT ---
HPI - General Adult General Chief complaint: Upper Respiratory Infection Stated complaint: COUGH,CONGESTION Time Seen by Provider: 03/13/24 08:45 History of Present Illness HPI narrative: 33-year-old female present to the emergency department for evaluation for cough and shortness of breath along with epigastric pain. Patient states she was exposed to flu. Patient states she developed symptoms approximately 2 days ago. Patient denies any chest pain but does report worsening shortness of breath and exertional shortness of breath. Related Data Home Medications ?Medication ?Instructions ?Recorded ?Confirmed ?Last Taken ?Type dapagliflozin propanediol 10 mg 10 mg PO DAILY 02/24/21 03/13/24 07/22/23 History tablet (Farxiga) fluoxetine 20 mg capsule 20 mg PO DAILY 11/17/23 03/13/24 07/22/23 History Allergies Allergy/AdvReac Type Severity Reaction Status Date / Time amoxicillin Allergy Unknown RASH, Verified 03/13/24 12:46 DIFFICULTY BREATHING Review of Systems Review of Systems: All systems reviewed & are unremarkable except as noted in HPI and below PMFSH Past Medical History Medical History (Updated 03/13/24 @ 18:37 by Kei Ceron MD) Diastolic heart failure Echo, 11/17/2023: estimated EF greater than 70%, grade 2 diastolic dysfunction. Amenorrhea secondary to weight Tobacco dependence Anxiety Obstructive sleep apnea Hypertension Gastroesophageal reflux disease Hypothyroidism Type 2 diabetes mellitus Depression Asthma Influenza (03/2019) Complicated by post influenza pneumonia requiring intubation and transfer to tertiary care facility for ECMO. Surgical History Surgical History No history of previous surgery Family History Family History Mother Diabetes mellitus Asthma Hypertension Thyroid disorder Grandparent Cancer Diabetes mellitus Social History Social History Social History: Surrogate decision maker: Cindy Delgado, mother. Code status: Full code. Smoking packs per day: 0.5 Smoking cigarettes per day: 10.0 Years smoked: 18 Smoking pack-years: 9.00 Smoking status: Current every day smoker Tobacco type: cigarettes Additional smoking assessment comments: 1 pack of cigarettes a day for over 10 years. Alcohol intake: current Drinks per week: 6 Alcohol use details: Occasional alcohol use in moderation. Substance use: never Substance use type: does not use Do You Feel Safe in your Home?: Yes Lack of Transportation: YES Lack of Food: Never True Current Housing: I Have Housing Concerned About Future Housing: No Difficulty Paying Gas/Electric Bills: No Difficulty Paying for Meds: No Currently Unemployed: No Education: High School Diploma/GED Difficulty w/ Childcare or Family Care: No Living arrangements: with family Additional living arrangements comments: The patient lives in [place] with her mother. Additional occupation/education comments: Unemployed. Spiritual care concerns: No Exam Narrative: APPEARANCE: Ill-appearing HEAD: normocephalic, atraumatic. EYES: PERRLA/EOMI, conjunctivae clear. NOSE: Normal no drainage EARS:TMS clear with good light reflex. THROAT: Pharynx clear, no exudate. NECK: Supple. No adenopathy, no masses. RESPIRATORY: Decreased breath sounds bilaterally CARDIOVASCULAR: Regular rate and rhythm without murmurs rubs or gallops. ABDOMINAL: Soft, nontender, nondistended, normal bowel sounds MUSCULOSKELETAL: Moves all extremities. Strength/ROM intact, No edema, No calf tenderness. NEURO: Alert. Cranial nerves II through XII intact. Grossly intact SKIN: Warm, dry. Normal Color Course Vital Signs Vital signs: Vital Signs Temperature 98.6 F 03/13/24 08:35 Pulse Rate 90 03/13/24 08:35 Respiratory Rate 20 03/13/24 08:35 Blood Pressure 172/88 H 03/13/24 08:35 Pulse Oximetry 98 03/13/24 08:35 Oxygen Delivery Room Air 03/13/24 08:35 Temperature 97.6 F 03/13/24 14:00 Pulse Rate 81 03/13/24 16:00 Respiratory Rate 20 03/13/24 14:00 Blood Pressure 136/74 03/13/24 14:00 Pulse Oximetry 94 03/13/24 14:00 Oxygen Delivery Room Air 03/13/24 13:18 Medical Decision Making [facility] Narrative Medical decision making narrative: 33-year-old female presented emergency department for evaluation for worsening shortness of breath. Patient did test positive for influenza A. Patient does have prior history of requiring intubation and ECMO for a influenza infection and 2020. Patient did have a pulse ox of 87% with ambulation in the emergency department. Patient is afebrile with no elevated leukocytosis, hemoglobin of 12.6. No significant acute abnormalities on the patient's CMP. Case discussed with the hospitalist and patient was accepted for admission. Patient was placed med tele. Patient was comfortable the plan for admission. All questions concerns were addressed. Differential Diagnosis Differential Diagnosis: COVID, RSV, influenza, pneumonia Vital Signs Vital Signs: Vital Signs Temperature 98.6 F 03/13/24 08:35 Pulse Rate 90 03/13/24 08:35 Respiratory Rate 20 03/13/24 08:35 Blood Pressure 172/88 H 03/13/24 08:35 Pulse Oximetry 98 03/13/24 08:35 Oxygen Delivery Room Air 03/13/24 08:35 Temperature 97.6 F 03/13/24 14:00 Pulse Rate 81 03/13/24 16:00 Respiratory Rate 20 03/13/24 14:00 Blood Pressure 136/74 03/13/24 14:00 Pulse Oximetry 94 03/13/24 14:00 Oxygen Delivery Room Air 03/13/24 13:18 Lab Data Lab results reviewed: Yes I reviewed the patient's lab results. 03/13/24 11:33 03/13/24 11:33 Labs: Lab Results 03/13/24 03/13/24 Range/Units 09:03 11:33 WBC 3.5 L (4.5-10.0) K/mm3 RBC 4.76 (4.2-5.4) M/mm3 Hgb 12.6 (12.0-15.0) g/dL Hct 41.2 (37.0-47.0) % MCV 86.6 (80-100) fl MCH 26.5 (26-34) pg MCHC 30.6 L (32-36) g/dl RDW 14.0 (11.5-14.5) % Plt Count 260 (150-375) k/mm3 MPV 11.4 H (7.4-10.4) fl Immature Gran % (Auto) 1.7 H (0-0.5) % Neut % (Auto) 52.6 (45.5-73.1) % Lymph % (Auto) 33.2 (18.3-44.2) % [place] % (Auto) 9.1 H (2.6-8.5) % Eos % (Auto) 2.8 (0-4.4) % Baso % (Auto) 0.6 (0.2-1.2) % Lymph # (Auto) 1.17 (0.9-3.2) K/mm3 [place] # (Auto) 0.3 (0.1-0.6) K/mm3 Eos # (Auto) 0.1 (0-0.3) K/mm3 Baso # (Auto) 0.0 (0.0-0.1) K/mm3 Abs Immat Gran (auto) 0.06 H (0.00-0.031) K/mm3 Absolute Neuts (auto) 1.9 (1.3-6.7) K/mm3 Absolute Nucleated RBC 0.000 (0.0-0.012) K/mm3 Nucleated RBC % 0.0 (0.0-0.2) % Sodium 134 L (137-145) mmol/L Potassium 4.3 (3.4-5.0) mmol/L Chloride 100 (98-107) mmol/L Carbon Dioxide 25 (22-30) mmol/L Anion Gap 9 (4-12) mmol/L BUN 9 (7-17) mg/dL Creatinine 0.51 L (0.7-1.0) mg/dL Estim Creat Clear Calc Not Reportable Estimated GFR > 60 (59 - ) Glucose 154 H (65-110) mg/dL Calcium 8.6 (8.4-10.2) mg/dL Total Bilirubin 0.6 (0.2-1.3) mg/dL AST 38 H (14-36) U/L ALT 42 H (6-35) U/L Alkaline Phosphatase 99 (38-126) U/L NT-Pro-B Natriuret Pep < 20 (19.9-100) pg/mL Total Protein 7.0 (6.3-8.2) g/dL Albumin 3.9 (3.5-5.1) g/dL Influenza A (RT-PCR) Positive A (Negative) Influenza B (RT-PCR) Negative (Negative) RSV (RT-PCR) Negative (Negative) SARS-CoV-2 RNA (RT-PCR) Negative (Negative) Imaging Data Radiologist's impression: Impressions Chest X-Ray 03/13/24 09:03 Impression: 1: Cardiomegaly with mild interstitial edema. Discharge Plan Discharge Clinical Impression: Influenza A, Hypoxic Patient Disposition: Still a Patient Condition: Stable
[2024-03-13 09:46] LABS: Influenza A QL RT-PCR Positive (Negative); Influenza B QL RT-PCR Negative (Negative); RSV RNA, RT-PCR Negative (Negative); SARS-CoV-2 RNA PCR Negative (Negative)
[2024-03-13] MEDS: HYDROcodone/acetaminophen (*CRX) 7.5-325 MG TABLET 1 TAB PO (10:50)
[2024-03-13] MEDS: ALBUTEROL SULFATE NEB 2.5 MG/3 ML INH INHALATION ×3 (11:20→21:13)
[2024-03-13 11:58] LABS: Basophils Percent Auto 0.6 % (0.2-1.2); Eosinophils Absolute Auto 0.1 K/mm3 (0-0.3); Eosinophils Percent Auto 2.8 % (0-4.4); Hematocrit 41.2 % (37.0-47.0); Hemoglobin 12.6 g/dL (12.0-15.0); Immature Granulocyte Absolute 0.06 K/mm3 (0.00-0.031); Immature Granulocyte Percent A 1.7 % (0-0.5); Lymphocytes Absolute Auto 1.17 K/mm3 (0.9-3.2); Lymphocytes Percent Auto 33.2 % (18.3-44.2); Mean Corpuscular HGB Conc 30.6 g/dl (32-36); Mean Corpuscular Hemoglobin 26.5 pg (26-34); Mean Corpuscular Volume 86.6 fl (80-100); Mean Platelet Volume 11.4 fl (7.4-10.4); Monocytes Absolute Auto 0.3 K/mm3 (0.1-0.6); Monocytes Percent Auto 9.1 % (2.6-8.5); Neutrophils Absolute Auto 1.9 K/mm3 (1.3-6.7); Neutrophils Percent Auto 52.6 % (45.5-73.1); Platelet Count Result 260 k/mm3 (150-375); Red Blood Count 4.76 M/mm3 (4.2-5.4); White Blood Count 3.5 K/mm3 (4.5-10.0)
[2024-03-13 11:59] LABS: Alanine Aminotransferase 42 U/L (6-35); Albumin Level 3.9 g/dL (3.5-5.1); Alkaline Phosphatase 99 U/L (38-126); Anion Gap 9 mmol/L (4-12); Aspartate Amino Transferase 38 U/L (14-36); Bilirubin,Total 0.6 mg/dL (0.2-1.3); Blood Urea Nitrogen 9 mg/dL (7-17); Calcium 8.6 mg/dL (8.4-10.2); Carbon Dioxide 25 mmol/L (22-30); Chloride 100 mmol/L (98-107); Estimated Glomerular Filt Rate > 60; Glucose 154 mg/dL (65-110); Potassium 4.3 mmol/L (3.4-5.0); Sodium 134 mmol/L (137-145)
[2024-03-13 12:24] LABS: NT Pro B Type Natriuretic Pept < 20 pg/mL (19.9-100)
--- NOTE | 2024-03-13 12:30 | P.HP_ITS ---
H&P: HPI History of Present Illness Date/Time: 03/13/24 12:30 Chief Complaint: Cough, Congestion, Flu Narrative: 33 y/o F presents here with influenza, cough, congestion, and body aches with PMH of obstructive sleep apnea, anxiety, hypertension, GERD, hypothyroidism, diabetes, depression, and asthma. The patient presents here with cough, congestion, and body aches. She had a recent exposure to influenza last week. She then developed symptoms approximately 2 days ago. She initially sought care with her PCP. She was then directed to the emergency department for further evaluation due to concerns for pneumonia. Patient's O2 saturation with ambulation was assessed in the ED. Her initial O2 saturation was 95%, however with ambulation she had increased work of breathing and her O2 saturation dropped to 87%. Patient is currently able to maintain a O2 saturation greater than 92% without exertion on room air. Of note, the patient has a history of influenza and pneumonia in 2019 that required transfer to a tertiary care hospital (U) for ECMO. Initial VS at presentation: 98.6? F, HR 90, RR 20, 172/88, and 98% on room air. ED workup showed: WBC 3.5, no anemia, sodium 134, creatinine 0.51 and GFR >60, AST 38, ALT 42, BNP less than 20, and testing positive for influenza A. CXR showed cardiomegaly with mild interstitial edema. Review of Systems Review of Systems: All systems reviewed & are unremarkable except as noted in HPI and below PMFSH Past Medical History Medical History (Updated 03/13/24 @ 13:04 by Ann Vasquez APRN) Diastolic heart failure Echo, 11/17/2023: estimated EF greater than 70%, grade 2 diastolic dysfunction. Amenorrhea secondary to weight Tobacco dependence Anxiety Obstructive sleep apnea Hypertension Gastroesophageal reflux disease Hypothyroidism Type 2 diabetes mellitus Depression Asthma Influenza (03/2019) Complicated by post influenza pneumonia requiring intubation and transfer to tertiary care facility for ECMO. Surgical History Surgical History No history of previous surgery Family History Family History Mother Diabetes mellitus Asthma Hypertension Thyroid disorder Grandparent Cancer Diabetes mellitus Social History Social History Social History: Surrogate decision maker: Cindy Delgado, mother. Code status: Full code. Smoking packs per day: 0.5 Smoking cigarettes per day: 10.0 Years smoked: 18 Smoking pack-years: 9.00 Smoking status: Current every day smoker Tobacco type: cigarettes Additional smoking assessment comments: 1 pack of cigarettes a day for over 10 years. Alcohol intake: current Drinks per week: 6 Alcohol use details: Occasional alcohol use in moderation. Substance use: never Substance use type: does not use Do You Feel Safe in your Home?: Yes Lack of Transportation: YES Lack of Food: Never True Current Housing: I Have Housing Concerned About Future Housing: No Difficulty Paying Gas/Electric Bills: No Difficulty Paying for Meds: No Currently Unemployed: No Education: High School Diploma/GED Difficulty w/ Childcare or Family Care: No Living arrangements: with family Additional living arrangements comments: The patient lives in [place] with her mother. Additional occupation/education comments: Unemployed. Spiritual care concerns: No Meds Home Medications and Allergies Home Medications ?Medication ?Instructions ?Recorded ?Confirmed ?Type dapagliflozin propanediol 10 mg 10 mg PO DAILY 02/24/21 03/13/24 History tablet (Farxiga) albuterol sulfate 90 mcg/actuation 2 puff inhalation QID PRN 04/06/21 03/13/24 Rx aerosol inhaler shortness of breath or wheezing #6.7 grams inhalational spacing device #1 ea 04/06/22 11/17/23 Rx (Aerochamber Plus Z Stat spacer) fluoxetine 20 mg capsule 20 mg PO DAILY 11/17/23 03/13/24 History Allergies Allergy/AdvReac Type Severity Reaction Status Date / Time amoxicillin Allergy Unknown RASH, Verified 03/13/24 12:46 DIFFICULTY BREATHING Vital Signs Vital Signs - 24 hr 03/13/24 08:35 03/13/24 10:09 03/13/24 10:09 Temperature 98.6 F Pulse Rate 90 92 Respiratory Rate 20 25 H Blood Pressure 172/88 H 135/87 Pulse Oximetry 98 93 93 Oxygen Delivery Room Air Room Air 03/13/24 10:35 03/13/24 11:20 03/13/24 11:30 Temperature Pulse Rate 95 92 91 Respiratory Rate 17 18 18 Blood Pressure 135/87 Pulse Oximetry 94 Oxygen Delivery 03/13/24 11:39 03/13/24 12:26 Temperature 99.4 F Pulse Rate 92 99 Respiratory Rate 20 20 Blood Pressure 136/78 123/76 Pulse Oximetry 97 95 Oxygen Delivery Exam Const: General: comfortable and no acute distress Other: , female, obese body habitus HENMT: Face/Nose/Sinus: Normal nares present Mouth: Yes dry mucous membranes (Moderate) Eyes: General: appearance normal, both eyes and all related structures Sclera: sclerae normal Pupils: Equal, round and reactive pupils present EOM: EOMs intact bilaterally Resp: Effort & Inspection: normal respiratory effort Auscultation: clear to auscultation bilaterally Cardio: Rate: regular rate Rhythm: regular rhythm Other: S1-S2 present without murmur, rub, ectopy GI: Other: Abdomen soft, nondistended, nontender Skin: General skin exam: normal color and no rashes or lesions noted Wounds: no wounds Neuro: Speech: normal speech Motor exam (neuro): 5/5 motor strength present throughout Sensory Exam: normal sensation Other: A&O x4 Extrem: General: normal to inspection Psych: Mental Status: mental status grossly normal Affect: normal affect Other: Good insight and judgment, pleasant H&P: Results Labs Labs: Short CBC 03/13/24 Range/Units 11:33 WBC 3.5 L (4.5-10.0) K/mm3 Hgb 12.6 (12.0-15.0) g/dL Hct 41.2 (37.0-47.0) % Plt Count 260 (150-375) k/mm3 BMP 03/13/24 11:33 Sodium 134 L Potassium 4.3 Chloride 100 Carbon Dioxide 25 BUN 9 Creatinine 0.51 L Glucose 154 H Calcium 8.6 Liver Function 03/13/24 Range/Units 11:33 Total Bilirubin 0.6 (0.2-1.3) mg/dL AST 38 H (14-36) U/L ALT 42 H (6-35) U/L Alkaline Phosphatase 99 (38-126) U/L Albumin 3.9 (3.5-5.1) g/dL Assessment and Plan Assessment and plan (1) Influenza A: Code(s): J10.1 - Influenza due to other identified influenza virus with other respiratory manifestations Status: Acute Assessment and Plan: - CXR: cardiomegaly with mild interstitial edema. BNP <20 Echo, 11/17/2023: EF greater than 70% with hyperdynamic systolic function, grade 2 diastolic dysfunction. - able to maintain O2 saturation greater than 92% on room air at rest, does have hypoxia with exertion measured at 87% on room air in the emergency department - Tamiflu 75 mg b.i.d. - supportive care Suspect hypoxia with exertion is multifactorial, mild interstitial edema seen on CXR/influenza/hypoventilation due to body habitus. Will continue supportive care and repeat O2 evaluation with ambulation. 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 Diabetes mellitus type: type 2 Qualified Code(s): E11.65 - Type 2 diabetes mellitus with hyperglycemia Code(s): E11.9 - Type 2 diabetes mellitus without complications Status: Chronic Assessment and Plan: - hypoglycemia protocol - POC blood glucose ACHS - home medication: Farxiga - correct regimen ordered - low dose TIDWM, based off TDD - A1C 8.5% on 10/2023, update (4) Hypertension: Qualifiers: Hypertension type: primary hypertension Qualified Code(s): I10 - Essential (primary) hypertension Code(s): I10 - Essential (primary) hypertension Status: Chronic Assessment and Plan: - chronic and not currently on medications. Current BP 123/76. - monitor (5) Obstructive sleep apnea: Code(s): G47.33 - Obstructive sleep apnea (adult) (pediatric) Status: Chronic Assessment and Plan: - does not use a CPAP, intolerant Plan Diet: Diabetic GI Prophylaxis: Not currently indicated DVT Prophylaxis: SCDs Lines: Peripheral Code Status: Full code Quality VTE Prophylaxis VTE prophylaxis: mechanical ordered Hospitalist MIPS Advance Care Plan I have confirmed that the patient's Advanced Care Plan is present, code status is documented, or surrogate decision maker is listed in patient medical record.: Yes Medication Reconciliation I have utilized all available resources to obtain, update and review the patients current medications (includes all prescriptions, OTC, herbals, cannabis, and nutritional supplements).: Yes
--- NOTE | 2024-03-13 12:42 | ADMGEN ---
This patient, Claudia Delgado, was admitted to [facility] Surg Room 326-01. Patient/family oriented to hospital policies and general routines including ID bracelet, bed and alarms, visiting hours, pain management, procedures, bathroom and other care routines, personal items, smoking policy, room service/diet, and visiting hours. Information on how to activate the Rapid Response Team has been discussed. Patient/Family are encouraged to report perceived risks to care and to ask questions if they do not understand what they are told or what they should do.
[2024-03-13 16:23] LABS: Glucose Point of Care 190 mg/dl (65-105)
[2024-03-13] MEDS: SODIUM CHLORIDE 0.9% IV 1,000 ML 100 ML IV CONT (16:33)
[2024-03-13] MEDS: KETOROLAC 30 MG/ML VIAL (*BKC) IV PUSH (16:34)
[2024-03-13] MEDS: guaiFENesin 12 HR 600 MG TABCR PO (20:37)
[2024-03-13] MEDS: OSELTAMIVIR PHOSPHATE 75 MG CAPSULE PO (20:37)
[2024-03-13] MEDS: BENZOCAINE/MENTHOL (*BKC) 18 EA LOZENGE 1 LOZENGE PO (20:40)
[2024-03-13 21:17] LABS: Glucose Point of Care 214 mg/dl (65-105)
[2024-03-14] VITALS (17 sets, daily range): BP systolic 145–148; BP diastolic 74–76; PULSE 6–113; RESP 18–20; TEMP 36.4–36.6; O2SAT 92–98
[2024-03-14] MEDS: ALBUTEROL SULFATE NEB 2.5 MG/3 ML INH INHALATION ×3 (02:28→15:11)
[2024-03-14 06:58] LABS: Basophils Percent Auto 0.5 % (0.2-1.2); Eosinophils Absolute Auto 0.1 K/mm3 (0-0.3); Eosinophils Percent Auto 2.7 % (0-4.4); Hematocrit 40.8 % (37.0-47.0); Hemoglobin 12.8 g/dL (12.0-15.0); Immature Granulocyte Absolute 0.03 K/mm3 (0.00-0.031); Immature Granulocyte Percent A 0.7 % (0-0.5); Lymphocytes Percent Auto 29.7 % (18.3-44.2); Mean Corpuscular HGB Conc 31.4 g/dl (32-36); Mean Corpuscular Hemoglobin 27.3 pg (26-34); Mean Platelet Volume 10.5 fl (7.4-10.4); Monocytes Absolute Auto 0.3 K/mm3 (0.1-0.6); Monocytes Percent Auto 6.6 % (2.6-8.5); Neutrophils Absolute Auto 2.6 K/mm3 (1.3-6.7); Neutrophils Percent Auto 59.8 % (45.5-73.1); Platelet Count Result 229 k/mm3 (150-375); Red Blood Count 4.69 M/mm3 (4.2-5.4); Red Cell Distribution Width 14.1 % (11.5-14.5); White Blood Count 4.4 K/mm3 (4.5-10.0)
[2024-03-14 07:09] LABS: Anion Gap 8 mmol/L (4-12); Blood Urea Nitrogen 12 mg/dL (7-17); Calcium 8.2 mg/dL (8.4-10.2); Carbon Dioxide 27 mmol/L (22-30); Chloride 101 mmol/L (98-107); Estimated Glomerular Filt Rate > 60; Glucose 193 mg/dL (65-110); Potassium 4.3 mmol/L (3.4-5.0); Sodium 136 mmol/L (137-145)
[2024-03-14 07:29] LABS: Glucose Point of Care 181 mg/dl (65-105)
[2024-03-14] MEDS: EMPAGLIFLOZIN 10 MG TABLET BY MOUTH (08:56)
[2024-03-14] MEDS: guaiFENesin 12 HR 600 MG TABCR PO (08:56)
[2024-03-14] MEDS: OSELTAMIVIR PHOSPHATE 75 MG CAPSULE PO (08:56)
[2024-03-14] MEDS: FLUoxetine HCL 20 MG CAPSULE PO (08:56)
[2024-03-14] MEDS: ACETAMINOPHEN 325 MG TABLET 650 MG PO (09:02)
[2024-03-14 11:35] LABS: Glucose Point of Care 164 mg/dl (65-105)
--- NOTE | 2024-03-14 13:38 | HOMEO2EVAL ---
Evaluation was performed at [facility] Home Oxygen Evaluation RC: Home Oxygen (O2) Evaluation Start: 03/14/24 11:41 Freq: ONCE Status: Active Protocol: RPE Activity Type Activity Date Activity User E-sign Co-sign Detail Recorded Client Recorded Date Recorded By Document 03/14/24 13:00 DJO [email or web address] 03/14/24 13:38 DJO Document 03/14/24 13:05 DJO [email or web address] 03/14/24 13:38 DJO Document 03/14/24 13:20 [email or web address] [email or web address] 03/14/24 13:38 DJO 03/14/24 03/14/24 03/14/24 13:00 13:05 13:20 Home O2 Evaluation [Oxygen] -Test Phase Resting Exercise Resting -Oxygen Delivery Room Air Room Air Room Air [Pulse Oximetry] -Pulse Oximetry (90-100 %) 96 98 94 [Pulse Rate] -Pulse Rate (60-100 beats/min) 80 113 H 92 [Evaluation] -Activity Tolerance Good [Charges] -Evaluation Charges O2 Evaluation by Pulmonary
--- NOTE | 2024-03-14 13:38 | PCRCNOTE ---
HOME O2 EVAL COMPLETE, NO REQUIREMENTS
--- NOTE | 2024-03-14 15:09 | P.DS_ITS ---
DS: Admitting Diagnosis Discharge Date 03/14/24 Admitting Diagnosis Acute Hypoxic Respiratory Failure. DS: Discharge Diagnosis Discharge Diagnosis (1) Influenza A: Code(s): J10.1 - Influenza due to other identified influenza virus with other respiratory manifestations Status: Acute Assessment and Plan: Acute. (2) Asthma: Qualifiers: Asthma complication type: uncomplicated Asthma persistence: unspecified Asthma severity: unspecified severity Qualified Code(s): J45.909 - Unspecified asthma, uncomplicated Code(s): J45.909 - Unspecified asthma, uncomplicated Status: Acute Assessment and Plan: Chronic. (3) Diabetes mellitus: Qualifiers: Diabetes mellitus complication status: with hyperglycemia Diabetes mellitus healthcare manager insulin use: without group home use Diabetes mellitus type: type 2 Qualified Code(s): E11.65 - Type 2 diabetes mellitus with hyperglycemia Code(s): E11.9 - Type 2 diabetes mellitus without complications Status: Chronic Assessment and Plan: Chronic. (4) Hypertension: Qualifiers: Hypertension type: primary hypertension Qualified Code(s): I10 - Essential (primary) hypertension Code(s): I10 - Essential (primary) hypertension Status: Chronic Assessment and Plan: Chronic. (5) Obstructive sleep apnea: Code(s): G47.33 - Obstructive sleep apnea (adult) (pediatric) Status: Chronic Assessment and Plan: Chronic. Plan Discharge Home on Self Care. DS: Summary Hospital Course Reason for hospitalization: Acute Hypoxic Respiratory Failure. Hospital Course: Patient presented to the ER with reports of worsening SOB within the last couple of days. She reported being exposed to Flu last week, then started having flu- like symptoms about 2 days prior to her admission, including coughs, SOB, muscle aches. She initially presented to her PCP for evaluation but was sent to the ER for suspected PNA due to her different comorbidities; including morbid obesity, DM 2, HTN. Patient was seen in the ER and CXR done showed cardiomegaly with mild interstitial edema. Her PO2 was > 92 in the ER at rest but on exertion, she desaturated to 87 %, associated with hypoxia. Patient's acute respiratory virus PCR was also positive for Flu-A, BNP <20, so she was admitted for stabilization of symptoms. She was started on Oseltamivir and has been getting scheduled breathing treatments as well. Patient has also been treated symptomatically with cough and pain medications PRN. She was initially on supplemental O2 1-2L/NC th at has been able to be weaned off, with the patient ambulating with RT and maintaining sats > 92 % with activity today. She reports much improvement in symptoms and SOB much improved per patient. Patient has a Hx of asthma but it was stable inpatient. All her other chronic conditions remained stable inpatient, with blood sugar levels < 200 for the most part. Patient is medically stable for discharge with no signs of acute distress noted or reported prior to discharge. Status at Discharge Functional status at discharge: independent ambulation Overall status at discharge: patient is progressing back to baseline Time Spent with Patient Time attestation: Total time spent providing and/or coordinating discharge services: Time spent: Greater than 30 minutes Exam Narrative: General: Morbidly obese, no acute distress. HEENT: Atraumatic, PERRL, EOMI, moist mucosa. NECK: Supple. Lungs: Diminished but clear. Heart: RRR, no murmurs. Abdomen: Soft, non-tender, obese, +ve BS X4 Quadrants. Extremities: Acyanotic, no edema. Neuro: Well oriented. CN II-XII grossly intact. Psych: Calm and co-operative. DS: Data Data Completed and Pending Labs on day of discharge: Labs from last 24 hours 03/14/24 03/14/24 03/14/24 11:32 07:26 06:52 WBC 4.4 L RBC 4.69 Hgb 12.8 Hct 40.8 MCV 87.0 MCH 27.3 MCHC 31.4 L RDW 14.1 Plt Count 229 MPV 10.5 H Immature Gran % (Auto) 0.7 H Neut % (Auto) 59.8 Lymph % (Auto) 29.7 Sharkey % (Auto) 6.6 Eos % (Auto) 2.7 Baso % (Auto) 0.5 Lymph # (Auto) 1.30 Sharkey # (Auto) 0.3 Eos # (Auto) 0.1 Baso # (Auto) 0.0 Abs Immat Gran (auto) 0.03 Absolute Neuts (auto) 2.6 Absolute Nucleated RBC 0.000 Nucleated RBC % 0.0 Sodium 136 L Potassium 4.3 Chloride 101 Carbon Dioxide 27 Anion Gap 8 BUN 12 Creatinine 0.51 L Estim Creat Clear Calc Not Reportable Estimated GFR > 60 Glucose 193 H POC Capillary Glucose 164 H 181 H Calcium 8.2 L 03/13/24 03/13/24 20:37 16:20 WBC RBC Hgb Hct MCV MCH MCHC RDW Plt Count MPV Immature Gran % (Auto) Neut % (Auto) Lymph % (Auto) Sharkey % (Auto) Eos % (Auto) Baso % (Auto) Lymph # (Auto) Sharkey # (Auto) Eos # (Auto) Baso # (Auto) Abs Immat Gran (auto) Absolute Neuts (auto) Absolute Nucleated RBC Nucleated RBC % Sodium Potassium Chloride Carbon Dioxide Anion Gap BUN Creatinine Estim Creat Clear Calc Estimated GFR Glucose POC Capillary Glucose 214 H 190 H Calcium Discharge Plan Discharge Attending physician on discharge: Ritchie Cheung Discharging Clinician: Giancarlo Cyr Anticipated Discharge Date/Time: 03/14/24 15:47 Patient Disposition: Home, Self-Care Activity: as tolerated Diet: heart healthy Patient Instructions: Antibiotic Form, Pain Management (DC) Patient Language: Russian Stand Alone Forms: General Discharge Information Follow-up/Referrals: Apoorva,BOBO Laura [Primary Care Provider] - 1 Week Discharge Medications: New Chloraseptic Sore Throat 6-10 mg Lozenge 1 yvonne PO PRN PRN (Reason: Sore Throat) Qty: 14 0RF benzonatate 100 mg Capsule 100 mg PO TID PRN (Reason: Cough) Qty: 14 0RF oseltamivir [Tamiflu] 75 mg Capsule 75 mg PO Q12HR Qty: 9 0RF Continued dapagliflozin propanediol [Farxiga] 10 mg tablet 10 mg PO DAILY (DME) Aerochamber Plus Z Stat Spacer See Rx Instructions .Route Qty: 1 0RF Rx Instructions: As directed fluoxetine 20 mg Capsule 20 mg PO DAILY albuterol sulfate 90 mcg/actuation HFA aerosol inhaler 2 puff INHALATION QID PRN (Reason: shortness of breath or wheezing) Qty: 6.7 0RF Date of admission: 03/13/24 12:12 Primary Care Provider: RickeyEbony Admitting Provider: Shira Grider Attending physician on admission: Shira Grider Condition: Stable Quality If No VTE Prophylaxis Answer both mechanical and pharmacologic: Reason no mechanical VTE proph: low risk/not indicated Reason no pharmacologic proph: low risk/not indicated Hospitalist MIPS Heart Failure (Exclusion) Patient has history of Heart Transplant or Left Ventricular Assistive Device?: No IF YES, STOP HERE Heart Failure (Qualifier) Patient has current or prior documentation of LVEF less than or equal to 40%, or mod/servere depressed LVSF?: No IF NO, STOP HERE
--- OUTSIDE RECORDS SUMMARY | 2024-03-14 21:53 | XMS_ITS | Clinical Summary ---
Author Organization [facility] Address [address] [place] [address]. [address] [address] Care Team Providers Care Health Assistant Name Role Phone Unavailable Primary Care Provider Unavailabl e Social History Tobacco Use Types Packs/Day Years Used Date Smoking Tobacco: Never Assessed Comments Unknown Sex and Gender Information Value Date Recorded Sex Assigned at Not on file Legal Sex Female 2:21 PM CDT Gender Identity Not on file Sexual Orientation Not on file Plan of Treatment Health Maintenance Due Date Last Done Comments Cervical Cancer Screening Pa p Smear (Age 30 to 64) Every 3 Years 1992 Annual Physical 08/27/1995 Hepatitis C 2010 DTaP, Tdap and Td Vaccines ( 1 - Tdap) 08/27/2011 Hepatitis B Vaccines (1 of 3 - 19+ 3-dose series) 08/27/2011 Cervical Cancer Screening Pa p with HPV Testing (Age 30 to 64) Every 5 Years 2022 Cervical Cancer Screening with HPV 2022 COVID-19 Vaccine ( - 2023-2 5 season) 2023 Influenza Adult (#1) 2023 HPV Vaccines Aged Out No longer eligi ble based on patient's age to complete this topic Meningococcal Vaccine Aged Out No tomás jayme eligible based on patient's age to complete this topic Pneumococcal Vaccine: Pediat rics (0 to 5 Years) and At-Risk Patients (6 to 64 Years) Aged Out No longer eligible b ased on patient's age to complete this topic RSV Immunizations Under 20 Months Aged Out No longer eligible based on patient's age to complete this topic
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
--- OUTSIDE RECORDS SUMMARY | 2024-03-14 21:54 | XMS_ITS | Data Portability ---
Author Organization [facility], [employer] Address [address] [place] [address] Care Team Providers Care Assistant Finance Manager Name Role Phone SENTHIL CHO Primary Care Provider [phone] Assessment Encounter Date Assessment Date Assessment LastModified by Organization Details LastModified Time 05/16/2016 05/16/2016 Patient presented for follow up. Studies ordered as below. Discussed plan with patient/careg iver, who expressed understanding . Follow up as noted below. [email or web address] Not available 05/16/2016 18:47:57 05/26/2016 05/26/2016 Patient presented for follow up. Studies ordered as below. Discussed plan with patient/careg iver, who expressed understanding . Follow up as noted below. Not available 05/26/2016 15:03:50 06/29/2016 06/29/2016 Patient presented for follow up. Studies ordered as below. Discussed plan with patient/careg iver, who expressed understanding . Follow up as noted below. [email or web address] Not available 06/29/2016 19:03:01 01/18/2017 01/18/2017 Patient presented for follow up. Studies ordered as below. Discussed plan with patient/careg iver, who expressed understanding . Follow up as noted below. Not available 01/18/2017 19:04:07 Plan of Treatment Reminders Order Date Submit Date Provider Last Modified By Organization Details Last Modified Time Details Appointments None recorded. Lab CBC w/ auto diff 2016 017 [email or web address] [facility], [address], [place], [address], 7 17:28:15 CMP, serum or plasma 2016 017 [email or web address] [facility], [address], [place], [address], 7 17:28:15 HbA1c (hemoglobi n A1c), blood 2016 017 TERRI [facility], [address], [place], [address], 7 19:37:16 lipid panel w/ direct LDL, serum 2016 017 [email or web address] [facility], [address], [place], [address], 7 17:28:15 microalbum in/creatin ine, ratio panel, urine 2016 017 [email or web address] [facility], [address], [place], [address], 7 17:28:15 TSH, serum or plasma 2016 017 [email or web address] [facility], [address], [place], [address], 7 17:28:15 lipid panel, serum 2016 017 [email or web address] [facility], [address], [place], [address], 7 09:21:32 HbA1c (hemoglobi n A1c), blood 2016 017 TERRI [facility], [address], [place], [address], 7 13:50:14 CMP, serum or plasma 2016 017 [email or web address] [facility], [address], [place], [address], 7 09:21:31 vitamin D, 25-hydroxy , total, serum 2016 017 [email or web address] [facility], [address], [place], [address], 7 09:21:31 TSH, serum or plasma 2016 017 [email or web address], [address], [place], [address], 7 09:21:32 hsv (1+2) igg Ab, serum 2016 017 [email or web address] [facility], [address], [place], [address], 7 09:12:40 hsv (1+2) igm Ab, serum 2016 017 [email or web address] [facility], [address], [place], [address], 7 09:12:41 urinalysis , dipstick [address] [facility], [facility], [address], [place], [address], 7 19:52:27 urinalysis complete, reflex culture 2016 017 [email or web address] [facility], [address], [place], [address], 7 09:12:40 Referral physical therapist referral 2016 017 [facility], [address], [address], [place], [address], 7 08:28:34 pain management referral 2016 017 [facility], [address], [place], [address], 7 08:28:[address] referral 2016 017 [email or web address] Not available 7 08:49:52 gastroente rologist referral 2016 017 Yoana Emery MD, [address], [address], [place], [address], 7 10:11:13 diabetic ophthalmol ogy referral 2016 017 Kenji Bauman MD, [address] , [address], [place], [address], 7 10:11:[address] referral 2016 017 [email or web address] Not available 7 10:11:14 urologist referral 2016 017 [email or web address] Lacey Jade MD, [address] [facility] , [address], [place], [address], 7 18:40:11 Procedures None recorded. Surgeries None recorded. Imaging US, abdomen - liver and GB 2016 017 [email or web address] Not available 09:20:19 electrocar diogram 2016 017 [facility], [address], [place], [address], 7 10:27:19 XR, chest, 2 view 2016 017 [email or web address] Not available 7 09:20:20 US, kidney 2016 017 [email or web address] Not available 7 17:39:22 Medication Orders Augmentin 875 mg-125 mg tablet 2016 017 [facility]76891, [address] [place], [place], [id number], 7 19:34:51 lisinopril 5 mg tablet 2016 017 [facility] #33932, [address] [facility] [place] [id number], 7 16:25:40 Cardizem CD 120 mg capsule,ex tended release 2016 [facility], [address], [place], [place], [id number], 7 16:25:40 Cardizem CD 120 mg capsule,ex tended release 2016 017 [facility] #91129, [address], [place], [id number], 7 13:50:14 lisinopril 5 mg tablet 2016 [facility], [address] [place], [place], [id number], 7 13:50:06 metformin ER 500 mg 24 hr tablet,ext ended release (gastric retention) 2016 [facility], [address] [place], [place], [id number], 7 13:50:05 Wellbutrin XL 150 mg 24 hr tablet, extended release 2016 [facility], [address] [place], [place], [id number], 7 13:50:06 Ventolin HFA 90 mcg/actuat ion aerosol inhaler 2016 [facility], [address] [place], [place], [id number], 7 13:50:04 ergocalcif flaco (vitamin D2) 1,250 mcg (50,000 unit) capsule 2016 [facility]195, [address] [place], [place], [id number], 7 13:50:05 Singulair 10 mg tablet 2016 017 [facility] #58350, [address] [place], [place], [id number], 7 19:36:28 betamethas one valerate 0.1 % topical cream 2016 017 [email or web address] [facility] #50480, [address] [place], [place], [id number], 7 11:31:42 Patient TargetsNo targets recorded. Patient Instructions Encounter Date Encounter Id Patient Instructions Last Modified By Organization Details Last Modified Time 05/26/2016 [id number] back care and preventing injuries: care instructions TERRI Not available 05/28/2016 14:39:10 getting back to normal after low back pain: care instructions TERRI Not available 05/28/2016 14:39:11 learning about relief for back pain TERRI Not available 05/28/2016 14:39:11 When You Want to Lose Weight: Care Instructions TERRI Not available 05/28/2016 14:39:06 06/29/2016 [id number] controlling your asthma: care instructions TERRI Not available 07/01/2016 11:53:30 learning about asthma TERRI Not available 07/01/2016 11:53:30 When You Want to Lose Weight: Care Instructions TERRI Not available 07/01/2016 11:53:34 hypothyroidism: care instructions TERRI Not available 07/01/2016 11:53:34 12/07/2016 [id number] abdominal pain: care instructions TERRI Not available 12/10/2016 16:14:12 When You Want to Lose Weight: Care Instructions TERRI Not available 12/10/2016 16:13:52 controlling your asthma: care instructions TERRI Not available 12/10/2016 16:13:52 learning about asthma TERRI Not available 12/10/2016 16:13:53 pulmonary function test* [email or web address] Not available 12/07/2016 13:49:18 hypothyroidism: care instructions TERRI Not available 12/10/2016 16:13:43 Reason for Referral Referring Physician: Senthil Cho, Internal Medicine, Encounter Date: 05/26/2016 Pain Management Referral for Low back pain Referring Physician: Senthil Cho Internal Medicine, Encounter Date: 05/26/2016 Sales Negotiator Referral for Sc reening for malignant neoplasm of cervix Referring Physician: Senthil Cho, Internal Medicine, Encounter Date: 06/29/2016 Referring Physician: Senthil Cho, Internal Medicine, Encounter Date: 12/07/2016 Diabetic Ophthalmology Refer ral for Diabetes mellitus Referring Physician: Senthil Cho, Internal Medicine, Encounter Date: 12/07/2016 Sales Negotiator Referral for Sc reening for malignant neoplasm of cervix Referring Physician: Senthil Cho Internal Medicine, Encounter Date: 12/07/2016 Urologist Referral for Blood in urine Referring Physician: Ivonne Rivera, Internal Medicine, Encounter Date: 01/18/2017 Results Created Date Observation Date Name Description Value Unit Range Abnormal Flag Note LastModifiedBy Organization Detail LastModifiedTime 01/19/20 17 01/18/2017 urina lysis , dipst ick Leukocytes Trace Not Available [facility] [employer], [facility] [address], [place], [address], 01/18/2017 19:19:44 01/19/20 17 01/18/2017 urina lysis , dipst ick Nitrite negati ve Not Available [employer] [facility] [address], [place], [address], 01/18/2017 19:19:44 01/19/20 17 01/18/2017 urina lysis , dipst ick Urobilinogen .2 Not Available [facility] [employer] [facility] [address], [place], [address], 01/18/2017 19:19:44 01/19/20 17 01/18/2017 urina lysis , dipst ick Protein 30 Not Available [facility] [address], [place], [address], 01/18/2017 19:19:44 01/19/20 17 01/18/2017 urina lysis , dipst ick pH 5.0 Not Available [facility] [address], [place], [address], 01/18/2017 19:19:44 01/19/20 17 01/18/2017 urina lysis , dipst ick Blood Large Not Available [facility] [address], [place], [address], 01/18/2017 19:19:44 01/19/20 17 01/18/2017 urina lysis , dipst ick Specific Pollock 1.015 Not Available [facility] [address], [place], [address], 01/18/2017 19:19:44 01/19/20 17 01/18/2017 urina lysis , dipst ick Ketone Negati ve Not Available [facility] [address], [place], [address], 01/18/2017 19:19:44 01/19/20 17 01/18/2017 urina lysis , dipst ick Bilirubin Negati ve Not Available [facility] [address], [place], [address], 01/18/2017 19:19:44 01/19/20 17 01/18/2017 urina lysis , dipst ick Glucose Negati ve Not Available [facility] [address], [place], [address], 01/18/2017 19:19:44 01/19/20 17 01/18/2017 urina lysis , dipst ick Appearance Turbid Not Available [facility], [facility] [address], [place], [address], 01/18/2017 19:19:44 01/19/20 17 01/18/2017 urina lysis , dipst ick Color Dark Yellow Not Available [facility], [facility] [address], [place], [address], 01/18/2017 19:19:44 12/08/19 17 12/07/2016 pulmo nary funct ion test* pre fev1 Not Available [facility], [facility] [address], [place], [address], 12/07/2016 13:48:16 12/08/19 17 12/07/2016 pulmo nary funct ion test* post fev1 Not Available [facility], [facility] [address], [place], [address], 12/07/2016 13:48:16 12/08/19 17 12/07/2016 pulmo nary funct ion test* fev1 Not Available [facility], [facility] [address], [place], [address], 12/07/2016 13:48:16 12/08/19 17 12/07/2016 pulmo nary funct ion test* pre fef Not Available [facility], [facility] [address], [place], [address], 12/07/2016 13:48:16 12/08/19 17 12/07/2016 pulmo nary funct ion test* post fef Not Available [facility], [facility] [address], [place], [address], 12/07/2016 13:48:16 12/08/19 17 12/07/2016 pulmo nary funct ion test* fef Not Available [facility], [facility] [address], [place], [address], 12/07/2016 13:48:16 12/09/19 17 12/07/2016 pulmo nary funct ion test* No observ ation record ed. [facility], [facility] [address], [place], [address], 12/08/2016 10:25:37 12/09/19 17 12/07/2016 elect dawit gaytan am No observ ation record ed. [facility], [facility] [address], [place], [address], 12/08/2016 10:27:56 12/20/19 17 12/06/2016 CT, abdom en + pelvi s, w/ contr ast No observ ation record ed. [email or web address] Not Available 2016 22:55:16 05/23/19 18 05/22/2017 XR, lumba r spine No observ ation record ed. [email or web address] Not Available 2017 12:42:20 05/23/19 18 05/22/2017 XR, hip, unila teral No observ ation record ed. [email or web address] Not Available 2017 12:09:49 05/24/19 18 05/23/2017 XR, abdom en No observ ation record ed. [facility] Not Available 2017 12:44:12 10/06/19 18 10/01/2017 XR, chest , 2 view No observ ation record ed. Not Available 2017 10:22:45 12/14/19 18 12/13/2017 XR, foot, 2 view No observ ation record ed. [facility] [address], [place], [address], 12/14/2017 16:25:36 12/14/19 18 12/13/2017 XR, ankle , 2 view No observ ation record ed. [facility] ([facility]) [address], [place], [address], 12/14/2017 16:25:36 04/10/19 20 04/10/2019 XR, chest , 2 view No observ ation record ed. [email or web address] [place] [address] [address], [place], [address], 04/11/2019 12:19:00 04/16/19 20 04/11/2019 XR, chest , 1 view No observ ation record ed. [email or web address] Not Available 2019 16:42:59 04/17/19 20 04/10/2019 XR, chest No observ ation record ed. Not Available 03/24 10:39:00 04/17/19 20 04/10/2019 XR, abdom en No observ ation record ed. Not Available 03/24 10:39:00 04/17/19 20 04/10/2019 XR, chest No observ ation record ed. Not Available 03/24 10:39:00 04/17/19 20 04/12/2019 XR, chest , 1 view No observ ation record ed. Not Available 03/24 10:39:00 04/17/19 20 04/14/2019 XR, chest , 1 view No observ ation record ed. Not Available 03/24 10:39:00 04/22/19 20 04/10/2019 XR, chest , 2 view No observ ation record ed. [email or web address] Not Available 2019 20:16:16 04/22/19 20 04/10/2019 XR, chest No observ ation record ed. [email or web address] Not Available 2019 22:01:16 04/30/19 20 04/12/2019 XR, chest , 1 view No observ ation record ed. [email or web address] Not Available 2019 20:22:59 Result Notes None recorded. 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 Procedures Surgical History None recorded. Imaging Results Imaging Date Name Status LastModified by Organization Details LastModified Time 12/07/2016 pulmonary function test* completed [employer], [facility] [address], [place], [address], 12/08/2016 10:25:37 12/07/2016 electrocardiogram completed [employer] [address], [place], [address], 12/08/2016 10:27:56 12/06/2016 CT, abdomen + pelvis, w/ contrast completed Information not available 01/10/2017 22:55:16 05/22/2017 XR, lumbar spine completed Informat ion not available 05/23/2017 12:42:20 05/22/2017 XR, hip, unilateral completed [email or web address] Infor mation not available 05/29/2017 12:09:49 05/23/2017 XR, abdomen completed Information n ot available 05/23/2017 12:44:12 10/01/2017 XR, chest, 2 view completed [email or web address] Informa tion not available 10/11/2017 10:22:45 12/13/2017 XR, foot, 2 view completed [address], [address], 12/14/2017 16:25:36 12/13/2017 XR, ankle, 2 view [address] [facility] [address] [place] [address], [address], 12/14/2017 16:25:36 04/10/2019 XR, chest, 2 view completed [address], [address], 04/11/2019 12:19:00 04/11/2019 XR, chest, 1 view completed [email or web address] Informa tion not available 04/17/2019 16:42:59 04/10/2019 XR, chest completed Information n ot available 04/18/2019 10:39:00 04/10/2019 XR, abdomen completed Information not available 04/18/2019 10:39:00 04/10/2019 XR, chest completed Information n ot available 04/18/2019 10:39:00 04/12/2019 XR, chest, 1 view completed Inform ation not available 04/18/2019 10:39:00 04/14/2019 XR, chest, 1 view completed Inform ation not available 04/18/2019 10:39:00 04/10/2019 XR, chest, 2 view completed Informa tion not available 04/23/2019 20:16:16 04/10/2019 XR, chest completed [email or web address] Information no t available 04/22/2019 22:01:16 04/12/2019 XR, chest, 1 view completed Informa tion not available 04/30/2019 20:22:59 Procedure Notes None recorded. Medical Equipment None Reported. Allergies No known drug allergies Medications Name Sig Start Date Stop Date Status Note LastModified by Organization Details LastModified Time cyclobenzap rine 10 mg tablet 06/29 completed Not Available Not Available Not Available amoxicillin 500 mg capsule 01/18 completed Not Available Not Available Not Available metformin 500 mg tablet TAKE 1 TABLET BY MOUTH TWICE DAILY.(BOBO PETERSON NEEDS FOLLOW UP APPOINTME NT) 08/16 completed Not Available Not Available Not Available azithromyci n 250 mg tablet TAKE 2 TABLETS (500 MG) BY ORAL ROUTE ONCE DAILY FOR 1 DAY THEN 1 TABLET (250 MG) BY ORAL ROUTE ONCE DAILY FOR 4 DAYS 02/24 completed Not Available Not Available Not Available ondansetron HCl 4 mg tablet Take 1 tablet 3 times a day by oral route as needed. 08/16 completed Not Available Not Available Not Available clobetasol 0.05 % topical cream APPLY A THIN LAYER TO THE AFFECTED AREA(S) BY TOPICAL ROUTE 2 TIMES PER DAY 12/30 completed Not Available Not Available Not Available Zyrtec 10 mg tablet Take 1 tablet every day by oral route at bedtime. 2015 active Not Available Not Available Not Avai lable ciprofloxac in 250 mg tablet 12/07 completed Not Available Not Available Not Available sulfamethox azole 800 mg-trimetho prim 160 mg tablet Take 1 tablet every 12 hours by oral route. 01/18 completed Not Available Not Available Not Available triamcinolo ne acetonide 0.1 % topical cream apply topically twice daily to affected areas 2016 active Not Available Not Available Not Avai lable levothyroxi ne 25 mcg tablet TAKE 1 TABLET BY MOUTH EVERY MORNING 05/26 completed Not Available Not Available Not Available Sea Soft Nasal Mist 0.65 % spray aerosol Take 2 sprays 4 times a day by nasal route. active Not Available Not Available No t Available amoxicillin 875 mg tablet 08/16 completed Not Available Not Available Not Available betamethaso ne valerate 0.1 % topical cream 2016 active Not Available Not Available Not Avai lable Cartia XT 120 mg capsule,ext ended release Take 1 capsule every day by oral route. active Not Available Not Available No t Available omeprazole 20 mg capsule,del ayed release Take 1 capsule every day by oral route. 07/14 completed Not Available Not Available Not Available montelukast 10 mg tablet Take 1 tablet every day by oral route. active Not Available Not Available No t Available lisinopril 5 mg tablet Take 1 tablet every day by oral route. active Not Available Not Available No t Available ergocalcife rol (vitamin D2) 1,250 mcg (50,000 unit) capsule Take 1 capsule every week by oral route. active Not Available Not Available No t Available ibuprofen 600 mg tablet active Not Available Not Available Not Available levofloxaci n 500 mg tablet 07/14 completed Not Available Not Available Not Available fluticasone propionate 50 mcg/actuati on nasal spray,suspe nsion [place] 1 spray every day by intranasa l route. 02/24 completed Not Available Not Available Not Available metformin ER 500 mg tablet,exte nded release 24 hr 01/18 completed Not Available Not Available Not Available lisinopril 2.5 mg tablet Take 1 tablet every day by oral route. 05/26 completed Not Available Not Available Not Available doxycycline hyclate 100 mg tablet Take 1 tablet twice a day by oral route. 12/30 completed Not Available Not Available Not Available amoxicillin 875 mg-potassiu m clavulanate 125 mg tablet Take 1 tablet every 12 hours by oral route. 06/29 completed Not Available Not Available Not Available nabumetone 500 mg tablet Take 1 tablet twice a day by oral route. 01/18 completed Not Available Not Available Not Available Ventolin HFA 90 mcg/actuati on aerosol inhaler Inhale 2 puffs every 8 hours by inhalatio n route as needed. active Not Available Not Available No t Available bupropion HCl XL 150 mg 24 hr tablet, extended release Take 1 tablet every day by oral route. active Not Available Not Available No t Available Mucinex DM 30 mg-600 mg tablet,exte nded release 12 hr Take 1 tablet every 12 hours by oral route. 02/24 completed Not Available Not Available Not Available Boostrix Tdap 2.5 Lf unit-8 mcg-5 Lf/0.5 mL intramuscul ar suspension 12/30 completed Not Available Not Available Not Available metformin ER 500 mg 24 hr tablet,exte nded release (gastric retention) Take 2 tablets twice a day by oral route. 2016 active Not Available Not Available Not Avai lable Vitals Date Recorded Body height Heart rate Respiratory rate Body temperature Body weight Body mass index (BMI) Systolic blood pressure Diastolic blood pressure Provider Name and Address Organization Details Last Updated DateTime 7 149.86 cm 101 /min 18 /min 98.9 [degF] 908694. 67 g 98.8 kg/m2 189 mm[Hg] 76 mm[Hg] Zaida Nelson [facility] 7 18:48:10 Date Recorded Body height Body weight Body mass index (BMI) Respiratory rate Body temperature Heart rate Systolic blood pressure Diastolic blood pressure Provider Name and Address Organization Details Last Updated DateTime 7 149.86 cm 850194. 08 g 98.6 kg/m2 18 /min 98.2 [degF] 92 /min 180 mm[Hg] 114 mm[Hg] [facility] 15:06[facility]18 Date Recorded Body height Body weight Body mass index (BMI) Respiratory rate Body temperature Heart rate Systolic blood pressure Diastolic blood pressure Provider Name and Address Organization Details Last Updated DateTime 7 149.86 cm 479321. 71 g 97.8 kg/m2 18 /min 97.8 [degF] 84 /min 166 mm[Hg] 90 mm[Hg] Jess [facility] 7 19:06:05 Date Recorded Body height Body mass index (BMI) Body weight Respiratory rate Heart rate Systolic blood pressure Diastolic blood pressure Provider Name and Address Organization Details Last Updated DateTime 7 149.86 cm 99.6 kg/m2 920384. 04 g 18 /min 98 /min 152 mm[Hg] 99 mm[Hg] Jess [facility] 7 13:12:04 Date Recorded Body height Body mass index (BMI) Body weight Body temperature Heart rate Respiratory rate Systolic blood pressure Diastolic blood pressure Provider Name and Address Organization Details Last Updated DateTime 7 149.86 cm 100.4 kg/m2 963474. 41 g 98 [degF] 96 /min 20 /min 152 mm[Hg] 97 mm[Hg] Danis Gonzalez [facility] 7 19:17:17 Social History Question Answer Notes LastModified by Organizat ion Details LastModified Time Tobacco Smoking Status Former Smoker Jess Vazquez [facility] 07/15/2015 16:43:24 What Is Your Level Of Alcohol Consumption? None Information not available 07/15/2015 Live Alone Or With Others? With Others [email or web address] Information not available 07/15/2015 Marital Status Single [email or web address] Informatio n not available 07/15/2015 What Was The Date Of Your Most Recent Tobacco Screening? 12/07/2016 Information n ot available 09/12/2018 Sex: Unknown Functional Status None recorded. Mental Status None recorded. Family History Relationship Description Onset Age of this Age Resolved Age Notes LastModified by Organization Details LastModified Time Mother Essential hypertension Not available 16:43:51 Mother Disorder of thyroid gland [email or web address] Not available 2015 16:43:58 Medical History Condition Response Coronary Artery Disease N Other N Gout N Kidney Stones N Blood Diseases N Hyperthyroidism N Breast Cancer N Blood Transfusion N Depression N Hypothyroidism N Lung Disease N COPD N Developmental or Behavioral Disorders N Defects or Inherited Disease N Breast Problem N Difficulty Swallowing N Anesthesia Complications N Anxiety Disorder N Meniere's disease N Muscle, Joint, or Bone Problems N Obesity N Vision or Eye Problems N Arthritis N Infertility N Polyps N Mental Disorder N Cancer N Stroke N Varicosities N Endometriosis N Bladder or Kidney Problems N High Cholesterol N Liver Disease N Fibromyalgia N Headaches N Kidney Disease N Allergies/Hayfever N Heart Problems N Ear or Hearing Problems N Hospitalizations N Thyroid Problems N GI Problems N ADD/ADHD N Skin Problems N Eating Disorder N Anemia N MRSA exposure N Constipation N Mental Illness N Ovarian Cancer N Diabetes N Bedwetting N Seizures/Epilepsy N Tuberculosis N AIDS/HIV N Congestive Heart Failure (CHF) N Eczema N Diverticulitis N Abuse/Domestic Violence N Asthma N Reflux/GERD N Hepatitis N Heart Disease N Pulmonary Embolism N Pre-Eclampsia N Hypertension N Chronic Ear Infections N Osteoporosis N Chicken Pox N Autism Spectrum Disorder (ASD) N Thrombophilias N Gynecological HistoryNo gynecological history recorded. Obstetrics History GPAL:G 0 P 0 0 0 0 Immunizations Vaccine Type Date Status Note Provider Nam e and Address Organization Details Recorded Time Influenza, split virus, quadrivalent, preservative 6 completed Senthil Cho MD [address], [place], [address], [facility] 12/31/2015 16:18:30 Past Encounters Encounter ID Performer Location Encounter Start Date Encounter Closed Date Diagnosis/Indication Diagnosis SNOMED-CT Code Diagnosis ICD10 Code Diagnosis Note [id number] Senthil Cho MD [facility], [facility] [address] [place] [address] 07/15/2015 17:32:47 07/15/2015 19:16:42 Vitamin D deficiency 20097546 E55.9 Benign hypertension 1072 5009 I10 Intellectu al functioning disability 910586161 F79 Morbid obesity 078076851 E66.01 Non-organi c sleep disorder 610052171 F51.9 Hypothyroidism 85731492 E03.9 Diabetes mellitus 813235 09 E11.9 Nausea and vomiting 1693 2000 R11.2 Allergic rhinitis 301332 04 J30.1 Active or passive immunization 568834895 Z23 [id number] Senthil Cho MD [facility], [facility] [address] [place] [address] 08/17/2015 15:56:45 08/17/2015 16:51:53 Costal chondritis 87005423 M94.0 better with OTC NSAIDS Benign hypertension 1072 5009 I10 BP 2 weeks Diabetes mellitus 639916 09 E11.9 Active or passive immunization 644757162 Z23 [id number] Senthil Cho MD [place] [facility], [facility] [address] [place] [address] 10/21/2015 17:47:20 10/21/2015 18:22:58 Diabetes mellitus 70826058 E11.9 Hypothyroidism 93905792 E03.9 Morbid obesity 573983410 E66.01 Benign hypertension 1072 5009 I10 BP 2 weeks Vitamin D deficiency 347 39660 E55.9 Obstructiv e sleep apnea of adult 7367140072 103 G47.33 Eruption 399019535 R21 Screening for malignant neoplasm of cervix 279348208 Z12.4 Active or passive immunization 638321444 Z23 [id number] Senthil Cho MD [place] [facility], [facility] [address] [place] [address] 12/31/2015 16:09:29 12/31/2015 16:30:00 Hypothyroidism 95116884 E03.9 Vitamin D deficiency 347 25902 E55.9 Morbid obesity 294354574 E66.01 Allergic rhinitis 695661 04 J30.1 [id number] Senthil Cho MD [place] [facility], [facility] [address] [place] [address] 01/25/2016 17:37:58 01/25/2016 18:35:09 Dysfunction of eustachian tube 61175590 H69.93 Vitamin D deficiency 347 85440 E55.9 Benign hypertension 1072 5009 I10 Diabetes mellitus 653603 09 E11.9 Hypothyroidism 48221283 E03.9 Allergic rhinitis 242185 04 J30.1 Screening for malignant neoplasm of cervix 161786197 Z12.4 [id number] Senthil Cho MD [place] [employer], [facility] [address] [place] [address] 02/25/2016 12:00:10 02/25/2016 13:01:34 Morbid obesity 660452007 E66.01 lost some , cont' diet and ^ activity Non-organi c sleep disorder 121288332 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 I advised patient to take her levothyrox ine in the morning an hour prior to eating. She verbalized an understand ing Abnormal weight gain 161 648867 R63.5 [id number] Senthil Cho MD [place] [facility], [facility] [address] [place] [address] 04/25/2016 18:35:24 04/25/2016 19:20:24 Low back pain 822070811 M54.5 Morbid obesity 398727704 E66.01 lost some , cont' diet and ^ activity [id number] Senthil Cho MD [facility], [facility] [address] [place] [address] 05/16/2016 18:40:00 06/10/2019 18:56:14 [id number] Senthil Cho MD [facility], [facility] [address] [place] [address] 05/26/2016 14:53:16 05/26/2016 16:26:49 Benign hypertension 33091566 I10 BP 2 weeks Morbid obesity 230749036 E66.01 lost some , cont' diet and ^ activity Low back pain 831690570 M54.5 Pharyngitis 680497761 J0 2.9 [id number] Senthil Cho MD [facility], [facility] [address] [place] [address] 06/29/2016 19:00:33 06/29/2016 19:40:02 Morbid obesity 929522307 E66.01 lost some 4 LB , cont' diet and ^ activity Asthma 044536963 J45.90 9 Diabetes mellitus 108975 09 E11.9 Hypothyroidism 79410947 E03.9 Benign hypertension 1072 5009 I10 BP 2 weeks Active or passive immunization 358448880 Z23 Screening for malignant neoplasm of cervix 853589126 Z12.4 [id number] Senthil Cho MD [facility], [facility] [address] [place] [address] 12/07/2016 12:27:28 12/07/2016 13:54:43 Abdominal pain 40648825 R10.[address] and lab result , Diabetes mellitus 317572 09 E11.69 Hypothyroidism 69287650 E03.9 Morbid obesity 243895292 E66.01 Noncomplia nce with medication regimen 147217210 Z91.14 education Benign hypertension 1072 5009 I10 BP 2 weeks Asthma 291991259 J45.90 9 Vitamin D deficiency 347 24610 E55.9 Screening for malignant neoplasm of cervix 087662361 Z12.4 Mixed anxi ety and depressive disorder 584789670 F41.8 Cholesterol screening 27 9117923 Z13.220 [id number] IVONNE RIVERA APN [facility] [address] [place] [address] 01/18/2017 18:51:18 01/18/2017 19:54:46 Allergic reaction 135958441 T78.40XD ED follow up following redness and swelling that occurred to bilateral hands and back of neck.no new detergents , soaps, lotions,re solved at this time Acute urin skyla tract infection 622883090 N39.0 Bactrim is continuedp t reports hematuria after starting ABX Blood in urine 18342554 R31.9 Herpes simplex 89833673 B00.9 Health Concerns Section Related Observation LastModified by Organization Detai ls LastModified Time None Recorded Concern Status LastModified by Organization Details LastModified Time None Recorded Advance Directives Directive None Recorded Payers Encounter Date Sequence Insurance Name Policy Number Policy Rothman Covered Member ID Rothman Member ID Guarantor Name 05/16/2016 1 [place] [employer] [place] [place] (PP[place]) [id number] Octaviana Delgado [id number] Octaviana Delgado 05/26/2016 1 [place] [employer] [place] [id number] Octaviana Delgado [id number] Octaviana Delgado 06/29/2016 1 [place] [employer] [place]) [id number] Octaviana Delgado [id number] Octaviana Delgado 12/07/2016 1 [place] [employer] [place]) [id number] Octaviana Delgado [id number] Octaviana Delgado 01/18/2017 1 [place] [employer] [place] ([place]) [id number] Octaviana Delgado [id number] Octaviana Delgado Notes Date Note Type Note Provider Name and Address Organization Details Recorded Time 05/16/2016 text/html Patient not seen , refused pap wwe ag/healthcare specialist Senthil Cho MD [address], [place], [address], [facility] - [facility] 06/10/2019 18:56:13 05/26/2016 text/html Hypertension F/UReported bypatient.Medicati ons:taking medications as directed; no side effects from medication Lifestyle:regular exercise; limiting/avoiding salt; compliant with low salt diet Associated Symptoms:no dizziness; no lightheadedness; no chest pain; no shortness of breath; no palpitations; no edema; no calf pain with exertion; no headache Senthil Cho MD [address], [place], [address], [facility] 05/26/2016 16:25:56 06/29/2016 text/html Hypertension F/UReported bypatient.Medicati ons:taking medications as directed; no side effects from medication Lifestyle:regular exercise; limiting/avoiding salt; compliant with low salt diet Associated Symptoms:no dizziness; no lightheadedness; no chest pain; no shortness of breath; no palpitations; no edema; no calf pain with exertion; no headache having PH monitor onSOB and wheezing better with proair Senthil Cho MD [address], [place], [address], [facility] 06/29/2016 19:37:49 12/07/2016 text/html Hypertension F/UReported bypatient.Medicati ons:taking medications as directed; no side effects from medication Lifestyle:regular exercise; limiting/avoiding salt; compliant with low salt diet Associated Symptoms:no dizziness; no lightheadedness; no chest pain; no shortness of breath; no palpitations; no edema; no calf pain with exertion; no headache upper abd pain , went to ER , per pt had CT and lab was NL, only UTIstill have pain Senthil Cho MD [address], [place], [address], [facility] 12/07/2016 13:51:13 01/18/2017 text/html Follow up from redness and itching to bilateral hands.recent UTI with now noted hematuria IVONNE RIVERA APN [address], [place], [address], [facility] 01/18/2017 19:36:42 OBGyn Episode No OBEpisode recorded.
--- OUTSIDE RECORDS SUMMARY | 2024-03-14 21:54 | XMS_ITS | Clinical Summary ---
[facility] Organization [facility] Address [address] [place] [address] Care Team Providers Care Freight Representative Name Role Phone Provider, Abstract Primary Care Provider Unavail able Allergies Active Allergy Reactions Criticality Noted Date Comments Amoxicillin Rash,Shortness of Breath/Wheezing High 04/15/2019 Tolerated course of ceftaroline April 2019 (Filemon PharmD) Medications albuterol sulfate 90 mcg/Actuation inhaler INHALE 2 PUFFS BY MOUTH FOUR TIMES DAILY NEEDED FOR SHORTNESS OF BREATH OR WHEEZING 2 Active lisinopriL (PRINIVIL) 10 mg tablet 2 Active FLUoxetine (PROzac) 20 mg capsule 2 Active levothyroxine 75 mcg tablet 2 Active glipiZIDE (GLUCOTROL) 5 mg tablet 2 Active metFORMIN (GLUMETZA) 500 mg Extended Release 24 hour tablet 2 times daily. Activ e Farxiga 10 mg Tablet 2 Active Active Problems Problem Noted Date Diagnosed Date Leukocytosis (leucocytosis) 04/27/2021 Chronic anemia 04/27/2021 Family History Medical History Relation Name Comments Diabetes Mother Relation Name Status Comments Brother 1 Alive Brother 2 Alive Father Alive Mother Alive Sister 1 Alive Sister 2 Alive Sister 3 Alive Sister 4 Alive Social History Tobacco Use Types Packs/Day Years Used Date Smoking Tobacco: Every Day Smokeless Tobacco: Never Alcohol Use Standard Drinks/Week Comments Yes 0 (1 standard drink = 0.6 oz pur e alcohol) Comments No Sex and Gender Information Value Date Recorded Sex Assigned at Not on file Legal Sex Female 11:26 AM 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 ENGINEER Gender Identity Not on file Sexual Orientation Not on file Last Filed Vital Signs Vital Sign Reading Time Taken Comments Blood Pressure 121/70 04/27/2021 3:04 PM 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 ENGINEER Pulse 90 04/27/2021 3:04 PM 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 ENGINEER Temperature 36.3 ??C (97.4 ??F) 04/27/2021 3:04 PM CS T Respiratory Rate - - Oxygen Saturation 96% 04/27/2021 3:04 PM 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 ENGINEER Inhaled Oxygen Concentration - - Weight 204.8 kg (451 lb 9.6 oz) 04/27/2021 3:04 PM 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 ENGINEER Height 149.9 cm (4' 11 ) 04/27/2021 3:04 PM 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 ENGINEER Body Mass Index 91.21 04/27/2021 3:04 PM 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 ENGINEER Plan of Treatment Health Maintenance Due Date Last Done Comments PNEUMOCOCCAL VACCINE 0-64 YEARS (1 of 2 - PCV) 1998 DIABETES ANNUAL FOOT EXAM 2010 DIABETES ANNUAL RETINAL EXAM 2010 DIABETES MICROALBUMIN ANNUAL SCREEN 2010 LDL CHOLESTEROL ANNUAL 2010 DIABETES HBA1C Q 6 MONTHS 06/11/2016 12/12/2015 CERVICAL CANCER SCREENING 2022 INFLUENZA VACCINE (#1) 2023 11/21/2015 COVID-19 Vaccine ( season) 2023 10/16/2020, 09/18/2020 DTAP/TDAP/TD VACCINES (5 - Td or Tdap) 08/16/2025 08/17/2015, 07/07/1993, 02/27/1993, Additional history exists HEPATITIS B VACCINES Completed 07/07/1993, 02/27/1993, 1992, Additional history exists HPV VACCINES Aged Out No longer eligi ble based on patient's age to complete this topic [place] Care Teams Freight Representative Relationship Specialty Start Date End Date Provider, Abstract NO ADDRESS ON FILE PCP - General 04/27/21
--- OUTSIDE RECORDS SUMMARY | 2024-03-14 21:54 | XMS_ITS | Data Portability ---
Author Organization [facility] Address [address] [place] [address] Care Team Providers Care Pre Coder Name Role Phone GEOVANNA VELASQUEZ Primary Care Provider Assessment Encounter Date Assessment Date Assessment LastModified by Organization Details LastModified Time 07/18/2023 07/18/2023 07/19/23: called patient, she states she has had almost 2 bottles water, ate eggs and spinach this morning and did take farxiga and lisinopril. I encouraged patient to keep up good work. Not available 07/19/2023 11:16:31 09/04/2023 09/04/2023 07/19/23: called patient, she states she has had almost 2 bottles water, ate eggs and spinach this morning and did take farxiga and lisinopril. I encouraged patient to keep up good work. Not available 09/04/2023 12:06:32 Plan of Treatment Reminders Order Date Submit Date Provider Last Modified By Organization Details Last Modified Time Details Appointments None recorded. Lab TSH + free T4, serum 2023 024 [facility], [address] [facility], [address], [place], [address], 4 09:16:24 albumin/cre atinine, mass ratio, urine 2023 024 [facility], [address] [facility], [address], [place], [address], 4 09:16:23 lipid panel, serum 2023 024 [facility], [address], [address], [place], [address], 4 09:16:25 HbA1c (hemoglobin A1c), blood 2023 024 [facility], [address] [facility] [address] [facility], [address], [place], [address], 4 09:16:25 Mycobacteri um tuberculosi s stimulated gamma interferon, qual, blood 2023 024 [facility], [address] [facility] [address], [address], [place], [address], 4 22:06:57 HbA1c (hemoglobin A1c), blood 2023 024 [email or web address] In-Office Order, Internal Use Only DO Not Attach Compendium DO Not Attach Compendium, Do Not Delete/merge, [id number] 4 14:25:54 CBC w/ auto diff 2023 024 [facility], [address] [facility], [address], [place], [address], 4 22:07:00 CMP, serum or plasma 2023 024 [facility], [address] [facility], [address], [place], [address], 4 22:06:58 Referral diabetic ophthalmolo gy referral 2023 024 [email or web address], [address], [place], [address], 4 08:12:[address] referral 2023 024 [facility], [address] [facility] , [address], [place], [address], 4 08:13:39 Procedures None recorded. Surgeries None recorded. Imaging polysomnogr am, split night [address], [address] [place] [address], [place], [address], 4 08:13:00 US, neck, soft tissue [address], [address] [place] [address], [place], [address], 4 08:02:10 US, breast, bilateral - there is an elongated mobile mass at the upper middle outer quadrantLef t side there is a small pea sized mass, hard around 3:30 1 inch from nipple [address], [address] [place] [address], [address], 4 08:02:10 MAMMO, diagnostic, digital, bilateral [address], [address] [place] [address], [place], [address], 4 08:02:10 XR, chest, 2 view [address], [address] [place] [address], [address], 4 08:02:10 Medication Orders neomycin-po lymyxin-hyd rocort 3.5 mg-10,000 unit/mL-1 % ear drops,susp 2023 [facility]66245, [address] [facility], [place], [place], [id number], 4 10:18:58 fluoxetine 20 mg capsule 2023 [facility]60527, [address], [place], [id number], 4 12:26:04 metronidazo le 0.75 % topical cream 2023 024 [facility]203, [address], [place], [id number], 4 10:17:33 albuterol sulfate HFA 90 mcg/actuati on aerosol inhaler 2023 [facility] #10513, [address], [place], [id number], 4 12:53:56 Ozempic 0.25 mg or 0.5 mg (2 mg/1.5 mL) subcutaneou s pen injector [email or web address] [facility]14300, [address], [place], [id number], 4 16:14:42 lisinopril 10 mg tablet 2023 024 [facility]27639, [address], [place], [id number], 4 12:49:09 omega-3 fatty acids 1,000 mg capsule 2023 024 [facility] #74224, [address], [place], [id number], 4 12:49:31 fluoxetine 20 mg capsule 2023 024 [facility] #31319, [address], [place], [id number], 4 12:49:12 Farxiga 10 mg tablet 2023 [facility] #01137, [address], [place], [id number], 4 10:17:43 lisinopril 10 mg tablet 2023 [facility] #82541, [address], [place], [id number], 4 10:17:44 fluoxetine 20 mg capsule 2023 [facility] #80715, [address] [place] [address], [id number], 4 10:17:55 Farxiga 10 mg tablet [address] [facility]66013, [address] [place] [address], [id number], 4 14:25:53 lisinopril 10 mg tablet [address] [facility] #79782, [address] [place] [address], [id number], 4 14:25:53 Ozempic 0.25 mg or 0.5 mg (2 mg/1.5 mL) subcutaneou s pen injector 2023 [facility] #93582, [address], [place], [id number], 4 16:14:59 OneTouch Ultra Test strips 2023 [facility] #44737, [address] [place] [address], [id number], 15:01:23 fluoxetine 20 mg capsule 2023 024 [id number], [address] [facility], [place], [place], [id number], 14:25:53 Patient TargetsNo targets recorded. Patient Instructions Encounter Date Encounter Id Patient Instructions Last Modified By Organization Details Last Modified Time 04/27/2023 [id number] A healthy lifestyle: care instructions Not available 04/27/2023 12:22:49 06/06/2023 [id number] A healthy lifestyle: care [facility] Not available 06/06/2023 12:08:44 07/18/2023 [id number] A healthy lifestyle: care instructions Not available 07/18/2023 12:40:17 09/04/2023 [id number] A healthy lifestyle: care instructions Not available 09/04/2023 12:16:21 01/16/2024 [id number] A healthy lifestyle: care instructions Not available 01/16/2024 14:25:53 Reason for Referral Diabetic Ophthalmology Refer ral for Diabetes mellitus Referring Physician: Geovanna Velasquez Incoming Freight Clerk, Encounter Date: 04/27/2023 Band Lining Bander Referral for W heezing Referring Physician: Geovanna Velasquez Incoming Freight Clerk, Encounter Date: 07/18/2023 Results Created Date Observation Date Name Description Value Unit Range Abnormal Flag Note LastModifiedBy Organization Detail LastModifiedTime 09/04/1909/05/2023 ALBUM IN/CR EATIN INE RATIO ,URIN E creatinine, urine 265.0 mg/dL notest ab. Not Available [facility] ([facility]) [address] [facility], [place], [address], 09/05/2023 09:16:23 09/04/19 24 09/05/2023 ALBUM IN/CR EATIN INE RATIO ,URIN E albumin, urine 27.9 ug/mL notest ab. Not Available [facility] ([facility]) [address] [facility], [place], [address], 09/05/2023 09:16:23 09/04/19 24 09/05/2023 ALBUM IN/CR EATIN INE RATIO ,URIN E alb/creat ratio 11 mg/g_ creat 0-29 Allyn l: 0 - 29 Moder ately incre ased: 30 - 300 Sever arnaldo incre ased: >300 Not Available [facility] ([facility]) [address] [place], [address], 09/05/2023 09:16:23 09/04/19 24 09/05/2023 TSH+F REE T4 TSH 4.170 uIU/m L 0.450- 4.500 Not Available [facility] ([facility]) [address] [place], [address], 09/05/2023 09:16:24 09/04/19 24 09/05/2023 TSH+F REE T4 T4,free(dire ct) 1.35 NG/dL 0.82-1 .77 Not Available [facility] ([facility]) [address] [place], [address], 09/05/2023 09:16:24 09/04/19 24 09/05/2023 LIPID PANEL cholesterol, total 137 mg/dL 100-19 9 Not Available [facility] ([facility]) [address] [place], [address], 09/05/2023 09:16:25 09/04/19 24 09/05/2023 LIPID PANEL triglyceride s 246 mg/dL 0-149 above high normal Not Available [facility] ([facility]) [address] [place], [address], 09/05/2023 09:16:25 09/04/19 24 09/05/2023 LIPID PANEL HDL cholesterol 35 mg/dL >39 below low normal Not Available [facility] ([facility]) [address] [facility], [place], [address], 09/05/2023 09:16:25 09/04/19 24 09/05/2023 LIPID PANEL VLDL cholesterol stanley 40 mg/dL 5-40 Not Available [facility]) [address] [place], [address], 09/05/2023 09:16:25 09/04/19 24 09/05/2023 LIPID PANEL LDL chol calc ([facility]) 62 mg/dL 0-99 Not Available [facility]) [address] [facility], [place], [address], 09/05/2023 09:16:25 09/04/19 24 09/05/2023 HEMOG LOBIN A1C hemoglobin A1C 8.2 % 4.8-5. 6 above high normal Predi abete s: 5.7 - 6.4 Diabe ba: >6.4 Glyce kelsea contr ol for adult s with diabe ba: <7.0 Not Available [facility] ([facility]) [address] [facility], [place], [address], 09/05/2023 09:16:25 01/16/20 24 01/17/2024 QUANT IFERO N-TB GOLD PLUS quantiferon incubation INCUBA TION PERFOR MED. Not Available [facility] ([facility]) [address] [place], [address], 01/20/2024 22:06:57 01/16/2001/17/2024 QUANT IFERO N-TB GOLD PLUS quantiferon criteria COMMEN T Quant iFERO N-TB Gold Plus is a quali tativ e indir ect test for M tuber culos is infec tion (incl uding disea se) and is inten ded for use in conju nctio n with risk asses sment , radio graph y, and other medic al and diagn ostic evalu ation s. The Quant iFERO N-TB Gold Plus resul t is deter mined by subtr actin g the Nil value from eithe r TB antig en (Ag) value . The Mitog en tube serve s as a contr ol for the test. Not Available [facility] ([facility]) [address] [facility], [place], [address], 01/20/2024 22:06:57 01/16/20 24 01/20/2024 QUANT IFERO N-TB GOLD PLUS quantiferon- TB gold plus NEGATI VE negati ve No respo nse to M tuber culos is antig ens detec torin. Infec tion with M tuber culos is is unlik arnaldo, but high risk indiv idual s shoul d be consi dered for addit ional testi ng (ATS/ IDSA/ CDC Clini stanley Pract ice Guide lines , 2017) . The refer ence range is an Antig en minus Nil resul t of <0.35 IU/mL . Chemi lumin escen ce immun oassa y metho dolog y Not Available [facility] ([facility]) [address] [facility], [place], [address], 01/20/2024 22:06:57 01/16/20 24 01/20/2024 QUANT IFERO N-TB GOLD PLUS quantiferon TB1 Ag value 0.00 IU/mL Not Available [facility]) [address] [place], [address], 01/20/2024 22:06:57 01/16/20 24 01/20/2024 QUANT IFERO N-TB GOLD PLUS quantiferon TB2 Ag value 0.00 IU/mL Not Available [facility]) [address] [place], [address], 01/20/2024 22:06:57 01/16/20 24 01/20/2024 QUANT IFERO N-TB GOLD PLUS quantiferon nil value 0.00 IU/mL Not Available [facility]) [address] [place], [address], 01/20/2024 22:06:57 01/16/20 24 01/20/2024 QUANT IFERO N-TB GOLD PLUS quantiferon mitogen value >10.00 IU/mL Not Available [facility]) [address] [place], [address], 01/20/2024 22:06:57 01/16/20 24 01/17/2024 COMP. METAB OLIC PANEL (14) glucose 335 mg/dL 70-99 above high normal Not Available [facility] ([facility]) [address] [place], [address], 01/20/2024 22:06:58 01/16/20 24 01/17/2024 COMP. METAB OLIC PANEL (14) BUN 16 mg/dL 6-20 Not Available [facility] ([facility]) [address] [place], [address], 01/20/2024 22:06:58 01/16/20 24 01/17/2024 COMP. METAB OLIC PANEL (14) creatinine 0.70 mg/dL 0.57-1 .00 Not Available [facility] ([facility]) [address] [place], [address], 01/20/2024 22:06:58 01/16/20 24 01/17/2024 COMP. METAB OLIC PANEL (14) eGFR 119 mL/mi n/1.7 3 >59 Not Available [facility] ([facility]) [address] [place], [address], 01/20/2024 22:06:58 01/16/20 24 01/17/2024 COMP. METAB OLIC PANEL (14) BUN/creatini ne ratio 23 9-23 Not Available [facility]) [address] [place], [address], 01/20/2024 22:06:58 01/16/20 24 01/17/2024 COMP. METAB OLIC PANEL (14) sodium 135 mmol/ L 134-14 4 Not Available [facility] [address] [facility] [place], [address], 01/20/2024 22:06:58 01/16/20 24 01/17/2024 COMP. METAB OLIC PANEL (14) potassium 4.9 mmol/ L 3.5-5. 2 Not Available [facility] ([facility] [address] [facility] [place], [address], 01/20/2024 22:06:58 01/16/20 24 01/17/2024 COMP. METAB OLIC PANEL (14) chloride 101 mmol/ L 96-106 Not Available [facility] ([facility]) [address] [facility] [place], [address], 01/20/2024 22:06:58 01/16/20 24 01/17/2024 COMP. METAB OLIC PANEL (14) carbon dioxide, total 20 mmol/ L 20-29 Not Available [facility] ([facility]) [address] [facility] [place], [address], 01/20/2024 22:06:58 01/16/20 24 01/17/2024 COMP. METAB OLIC PANEL (14) calcium 9.1 mg/dL 8.7-10 .2 Not Available [facility] ([facility]) [address] [facility] [place], [address], 01/20/2024 22:06:58 01/16/20 24 01/17/2024 COMP. METAB OLIC PANEL (14) protein, total 6.6 g/dL 6.0-8. 5 Not Available [facility] ([facility]) [address] [facility] [place], [address], 01/20/2024 22:06:58 01/16/20 24 01/17/2024 COMP. METAB OLIC PANEL (14) albumin 3.9 g/dL 3.9-4. 9 Not Available [facility] ([facility]) [address] [facility] [place], [address], 01/20/2024 22:06:58 01/16/20 24 01/17/2024 COMP. METAB OLIC PANEL (14) globulin, total 2.7 g/dL 1.5-4. 5 Not Available [facility] ([facility]) [address] [place], [address], 01/20/2024 22:06:58 01/16/20 24 01/17/2024 COMP. METAB OLIC PANEL (14) bilirubin, total <0.2 mg/dL 0.0-1. 2 Not Available [facility] ([facility]) [address] [place], [address], 01/20/2024 22:06:58 01/16/20 24 01/17/2024 COMP. METAB OLIC PANEL (14) alkaline phosphatase 103 IU/L 44-121 Not Available [facility]) [address] [place], [address], 01/20/2024 22:06:58 01/16/20 24 01/17/2024 COMP. METAB OLIC PANEL (14) AST (SGOT) 15 IU/L 0-40 Not Available [facility] ([facility]) [address] [place], [address], 01/20/2024 22:06:58 01/16/20 24 01/17/2024 COMP. METAB OLIC PANEL (14) ALT (SGPT) 22 IU/L 0-32 Not Available [facility] ([facility]) [address] [place], [address], 01/20/2024 22:06:58 01/16/20 24 01/17/2024 CBC WITH DIFFE RENTI AL/PL ATELE T WBC 8.9 x10e3 /uL 3.4-10 .8 Eff ectiv e Decem aaron 2023 [place] [id number] 5 WBC will be made* * non-o rdera ble as a stand -yousif e order code. Not Available [facility] ([facility]) [address] [place], [address], 01/20/2024 22:07:00 01/16/20 24 01/17/2024 CBC WITH DIFFE RENTI AL/PL ATELE T RBC 4.88 x10e6 /uL 3.77-5 .28 Not Available [facility] ([facility]) [address] [facility], [place], [address], 01/20/2024 22:07:00 01/16/20 24 01/17/2024 CBC WITH DIFFE RENTI AL/PL ATELE T hemoglobin 13.2 g/dL 11.1-1 5.9 Not Available [facility] ([facility]) [address] [facility], [place], [address], 01/20/2024 22:07:00 01/16/20 24 01/17/2024 CBC WITH DIFFE RENTI AL/PL ATELE T hematocrit 42.2 % 34.0-4 6.6 Not Available [facility] ([facility]) [address] [place], [address], 01/20/2024 22:07:00 01/16/20 24 01/17/2024 CBC WITH DIFFE RENTI AL/PL ATELE T MCV 87 fL 79-97 Not Available [facility] ([facility]) [address] [place], [address], 01/20/2024 22:07:00 01/16/20 24 01/17/2024 CBC WITH DIFFE RENTI AL/PL ATELE T MCH 27.0 pg 26.6-3 3.0 Not Available [facility] ([facility]) [address] [place], [address], 01/20/2024 22:07:00 01/16/20 24 01/17/2024 CBC WITH DIFFE RENTI AL/PL ATELE T MCHC 31.3 g/dL 31.5-3 5.7 below low normal Not Available [facility] ([facility]) [address] [facility], [place], [address], 01/20/2024 22:07:00 01/16/20 24 01/17/2024 CBC WITH DIFFE RENTI AL/PL ATELE T RDW 13.6 % 11.7-1 5.4 Not Available [facility] ([facility]) [address] [facility], [place], [address], 01/20/2024 22:07:00 01/16/20 24 01/17/2024 CBC WITH DIFFE RENTI AL/PL ATELE T platelets 353 x10e3 /uL 150-45 0 Not Available [facility] ([facility]) [address] [facility], [place], [address], 01/20/2024 22:07:00 01/16/20 24 01/17/2024 CBC WITH DIFFE RENTI AL/PL ATELE T neutrophils 63 % notest ab. Not Available [facility] ([facility]) [address] [facility], [place], [address], 01/20/2024 22:07:00 01/16/20 24 01/17/2024 CBC WITH DIFFE RENTI AL/PL ATELE T lymphs 26 % notest ab. Not Available [facility] ([facility]) [address] [place], [address], 01/20/2024 22:07:00 01/16/20 24 01/17/2024 CBC WITH DIFFE RENTI AL/PL ATELE T monocytes 5 % notest ab. Not Available [facility] ([facility]) [address] [place], [address], 01/20/2024 22:07:00 01/16/20 24 01/17/2024 CBC WITH DIFFE RENTI AL/PL ATELE T eos 4 % notest ab. Not Available [facility] ([facility]) [address] [place], [address], 01/20/2024 22:07:00 01/16/20 24 01/17/2024 CBC WITH DIFFE RENTI AL/PL ATELE T basos 1 % notest ab. Not Available [facility] ([facility]) [address] [facility], [place], [address], 01/20/2024 22:07:00 01/16/20 24 01/17/2024 CBC WITH DIFFE RENTI AL/PL ATELE T neutrophils (absolute) 5.6 x10e3 /uL 1.4-7. 0 Not Available [facility] ([facility]) [address] [facility], [place], [address], 01/20/2024 22:07:00 01/16/20 24 01/17/2024 CBC WITH DIFFE RENTI AL/PL ATELE T lymphs (absolute) 2.3 x10e3 /uL 0.7-3. 1 Not Available [facility] ([facility]) [address] [facility], [place], [address], 01/20/2024 22:07:00 01/16/20 24 01/17/2024 CBC WITH DIFFE RENTI AL/PL ATELE T monocytes(ab solute) 0.4 x10e3 /uL 0.1-0. 9 Not Available [facility] ([facility]) [address] [place], [address], 01/20/2024 22:07:00 01/16/20 24 01/17/2024 CBC WITH DIFFE RENTI AL/PL ATELE T eos (absolute) 0.3 x10e3 /uL 0.0-0. 4 Not Available [facility] ([facility]) [address] [place], [address], 01/20/2024 22:07:00 01/16/20 24 01/17/2024 CBC WITH DIFFE RENTI AL/PL ATELE T baso (absolute) 0.1 x10e3 /uL 0.0-0. 2 Not Available [facility] ([facility]) [address] [facility], [place], [address], 01/20/2024 22:07:00 01/16/20 24 01/17/2024 CBC WITH DIFFE RENTI AL/PL ATELE T immature granulocytes 1 % notest ab. Not Available [facility] ([facility]) [address] [facility], [place], [address], 01/20/2024 22:07:00 01/16/20 24 01/17/2024 CBC WITH DIFFE RENTI AL/PL ATELE T immature grans (abs) 0.1 x10e3 /uL 0.0-0. 1 Not Available [facility] ([facility]) [address] [facility], [place], [address], 01/20/2024 22:07:00 01/16/20 24 01/16/2024 HbA1c (hemo globi n A1c), blood HbA1c 9.3% Not Available In-Office Order Internal Use Only DO Not Attach Compendium DO Not Attach Compendium, Do Not Delete/merge, [id number] 01/16/2024 14:07:26 07/31/19 24 07/12/2023 polys omnog sanjay, split night No observ ation record ed. [facility] [address] [facility] [address], [place], [address], 08/15/2023 11:41:42 07/31/19 24 07/12/2023 sleep study , diagn ostic (PROC ) No observ ation record ed. [facility] [address] [facility] [address], [place], [address], 07/31/2023 19:01:20 11/17/19 24 11/17/2023 XR, chest , 2 view No observ ation record ed. [address] [facility] [address], [place], [address], 11/20/2023 09:31:42 11/17/19 24 11/17/2023 US, doppl er, venou s No observ ation record ed. [address], [place], [address], 11/20/2023 09:33:12 11/18/19 24 11/17/2023 trans -thor acic echoc ardio gram (TTE) (PROC ) No observ ation record ed. [facility] [address] [facility] [address], [place], [address], 11/21/2023 04:21:15 03/13/19 25 03/13/2024 XR, chest , 2 view No observ ation record ed. [facility] [address] [facility] [address], [place], [address], 03/13/2024 13:04:41 Result Notes None recorded. Problems Name Problem SNOMED Code Status Onset Date Resolution Date Notes Provider Name and Address Organization Details Recorded Time Diabetes mellitus 25781388 Active 2019 BOBO CLAUDIO Attn: Accountin g,[address] [facility], [place], [address], [place] [facility] 0 12:57:17 Essential hypertension 59191948 Active 2019 BOBO CLAUDIO Attn: Accountin g,[address], [place], [address], [place] [facility] 0 12:57:28 Hyperlipidemia 69960162 Active 2019 BOBO CLAUDIO Attn: Accountin g,[address], [place], [address], [place] [facility] 0 12:57:34 Asthma 920030750 Active 2019 BOBO CLAUDIO Attn: Accountin g,[address], [place], [address], [place] [facility] 0 12:57:39 Depressive disorder 46766619 Active 2019 BOBO CLAUDIO Attn: Accountin g,[address] [facility], [place], [address], [place] [facility] 0 12:57:59 Hypothyroidism 20634483 Active 2019 BOBO CLAUDIO Attn: Accountgabriel willingham,[address] [facility], [place], [address], [place] [facility] 0 13:27:14 Vaping Active 2020 BOBO CLAUDIO Attn: Accountgabriel willingham,[address] [facility], [place], [address], [place] [facility] 1 10:15:55 Cervical lymphadenopath y 671005162 Active 2021 BOBO CLAUDIO Attn: Dave willingham,[address] [facility], [place], [address], [place] [facility] 2 09:30:54 Myelocytes in blood 759600458 Active 2021 BOBO CLAUDIO Attn: Dave willingham,[address] [facility], [place], [address], [place] [facility] 2 09:30:55 Chest pain 82494765 Active 2021 BOBO CLAUDIO Attn: Dave willingham,[address] [facility], [place], [address], [place] [facility] 2 09:30:57 Smoker 62974671 Active 2021 BOBO CLAUDIO Attn: Dave willingham,[address] [facility], [place], [address], [place] [facility] 2 10:52:22 Morbid obesity 128026916 Active 2022 BOBO CLAUDIO Attn: Jesusgabriel willingham,[address] [place], [address], [place] [facility] 3 10:20:16 Musculoskeleta l pain 176726786 Active 2022 BOBO CLAUDIO Attn: Dave tarsha,[address] [facility], [place], [address], [place] [facility] 3 10:26:15 Neutrophilia 683438756 Active 2022 BOBO CLAUDIO Attn: Dave willingham,[address] [facility], [place], [address], [place] [facility] 3 11:37:42 Major depressive disorder 428301015 Active 2022 BOBO CLAUDIO Attn: Dave tarsha,[address] [facility], [place], [address], [place] [facility] 3 11:28:49 Perioral dermatitis 306701708 Active 2023 BOBO CLAUDIO Attn: Dave tarsha,[address] [facility], [place], [address], [place] [facility] 4 12:53:24 Obstructive sleep apnea syndrome 27503794 Active 2023 BOBO CLAUDIO Attn: Dave tarsha,[address] [facility], [place], [address], [place] [facility] 4 12:53:25 Wheezing 91926181 Active 2023 BOBO CLAUDIO Attn: Dave tarsha,[address] [facility], [place], [address], [place] [facility] 4 10:16:50 Problem Notes None recorded. Procedures Surgical History None recorded. Imaging Results Imaging Date Name Status LastModified by Organization Details LastModified Time 07/12/2023 polysomnogram, split night completed [facility] [address] [place] [address] [place] [address], [id number], 08/15/2023 11:41:42 07/12/2023 sleep study, diagnostic (PROC) completed [address], [id number], 07/31/2023 19:01:20 11/17/2023 XR, chest, 2 view completed [address], [place], [address], 11/20/2023 09:31:42 11/17/2023 US, doppler, venous completed [address], [place], [address], 11/20/2023 09:33:12 11/17/2023 trans-thoracic echocardiogram (TTE) (PROC) completed [address] [address], [place], [address], 11/21/2023 04:21:15 03/13/2024 XR, chest, 2 view completed [address] [address], [place], [address], 03/13/2024 13:04:41 Procedure Notes None recorded. Medical Equipment None Reported. Allergies Allergen ID Allergen Name Allergen Category Reaction Reaction Severity Criticality Documentation Date Start Date Code Code System Note Provider Name and Address Organization Details Recorded Time [id number] amoxicill in medicatio n facial swelling Not available Not available 06/11/2019 723 RxNorm Not Available Not Available Not Available Medications Name Sig Start Date Stop Date Status Note LastModified by Organization Details LastModified Time Prescriptio n - Prior Authorizati on Request active Not Available Not Available N ot Available metformin 500 mg tablet TAKE 1 TABLET BY MOUTH DAILY 07/01 completed Not Available Not Available Not Available clindamycin HCl 300 mg capsule TAKE 1 CAPSULE BY MOUTH EVERY 8 HOURS FOR 10 DAYS 07/17 completed Not Available Not Available Not Available Vitamin C 500 mg tablet TAKE 1 TABLET BY MOUTH DAILY 07/29 completed Not Available Not Available Not Available omega-3 fatty acids 1,000 mg capsule Take 2 capsules every day by oral route for 90 days. 2023 active Not Available Not Available Not Avai lable azithromyci n 250 mg tablet TK 2 TS PO ON DAY 1, THEN TK 1 T PO D FOR 4 DAYS active Not Available Not Available No t Available ibuprofen 800 mg tablet TAKE 1 TABLET BY MOUTH EVERY 6-8 HOURS NEEDED active Not Available Not Available No t Available benzonatate 200 mg capsule TAKE 1 CAPSULE BY MOUTH THREE TIMES DAILY NEEDED FOR COUGH 07/01 completed Not Available Not Available Not Available prednisone 20 mg tablet TAKE 1 TABLET BY MOUTH TWICE DAILY 05/18 completed Not Available Not Available Not Available hydralazine 25 mg tablet TAKE 1 TABLET BY MOUTH THREE TIMES DAILY 05/18 completed Not Available Not Available Not Available meclizine 12.5 mg tablet TAKE 1 TABLET BY MOUTH THREE TIMES DAILY NEEDED FOR DIZZINESS 07/18 completed Not Available Not Available Not Available metronidazo le 500 mg tablet TAKE 1 TABLET BY MOUTH EVERY 8 HOURS 12/27 completed Not Available Not Available Not Available sulfamethox azole 800 mg-trimetho prim 160 mg tablet TAKE 1 TABLET BY MOUTH EVERY 12 HOURS FOR 10 DAYS 07/17 completed Not Available Not Available Not Available tramadol 50 mg tablet TAKE 1 TABLET BY MOUTH EVERY 6 HOURS NEEDED FOR PAIN 02/16 completed Not Available Not Available Not Available acetaminoph en 500 mg tablet TAKE 2 TABLETS BY MOUTH EVERY 8 HOURS NEEDED FOR PAIN OR FEVER. 07/29 completed Not Available Not Available Not Available levothyroxi ne 75 mcg tablet TAKE 1 TABLET BY MOUTH EVERY MORNING BEFORE BREAKFAST active Not Available Not Available No t Available ofloxacin 0.3 % ear drops INSTILL 10 DROPS TO RIGHT EAR DAILY FOR 7 DAYS 04/26 completed Not Available Not Available Not Available diltiazem 120 mg tablet TAKE 1 TABLET BY MOUTH EVERY DAY 12/05 completed Not Available Not Available Not Available OneTouch Ultra Test strips Take 1 strip every day by miscell. route for 90 days. active Not Available Not Available No t Available amlodipine 10 mg tablet TAKE 1 TABLET BY MOUTH EVERY DAY 04/28 completed Not Available Not Available Not Available benzonatate 100 mg capsule Take 1 capsule 3 times a day by oral route for 5 days. 2024 active Not Available Not Available Not Avai lable doxycycline monohydrate 100 mg capsule TAKE 1 CAPSULE BY MOUTH TWICE DAILY FOR 7 DAYS 04/26 completed Not Available Not Available Not Available erythromyci n 5 mg/gram (0.5 %) eye ointment APPLY SMALL RIBBON TO LEFT EYELASHES TWICE DAILY 09/11 completed Not Available Not Available Not Available metformin 1,000 mg tablet active Not Available Not Available Not Available lisinopril 10 mg tablet TAKE 1 TABLET BY MOUTH EVERY DAY 2023 active Not Available Not Available Not Avai lable lidocaine 5 % topical patch APPLY 1 PATCH TOPICALLY TO THE SKIN DAILY. LEAVE ON MOST PAINFUL AREA FOR UP TO 12 HOURS 07/29 completed Not Available Not Available Not Available metronidazo le 0.75 % topical cream APPLY THIN LAYER TOPICALLY TO THE AFFECTED AREA TWICE DAILY IN THE MORNING AND IN THE EVENING 09/11 completed Not Available Not Available Not Available metoprolol tartrate 50 mg tablet TAKE 1 TABLET BY MOUTH EVERY 12 HOURS 05/18 completed Not Available Not Available Not Available ibuprofen 600 mg tablet TAKE 1 TABLET BY MOUTH EVERY 6 HOURS NEEDED FOR PAIN 07/29 completed Not Available Not Available Not Available levofloxaci n 750 mg tablet 01/15 completed Not Available Not Available Not Available methylpredn isolone 4 mg tablets in a dose pack FOLLOW PACKAGE DIRECTION S 04/28 completed Not Available Not Available Not Available albuterol sulfate HFA 90 mcg/actuati on aerosol inhaler INHALE 2 PUFFS BY MOUTH EVERY 4 HOURS active Not Available Not Available No t Available cefdinir 300 mg capsule TAKE 1 CAPSULE BY MOUTH EVERY 12 HOURS 12/23 completed Not Available Not Available Not Available fluoxetine 20 mg capsule TAKE 1 CAPSULE BY MOUTH EVERY DAY active Not Available Not Available No t Available glipizide 5 mg tablet TAKE 1 TABLET BY MOUTH DAILY AT 6.30 AM 07/01 completed Not Available Not Available Not Available neomycin-po lymyxin-hyd rocort 3.5 mg-10,000 unit/mL-1 % ear drops,susp INSTILL 4 DROPS INTO AFFECTED EAR(S) BY OTIC ROUTE 3 TIMES PER DAY 09/11 completed Not Available Not Available Not Available bupropion HCl XL 300 mg 24 hr tablet, extended release TAKE 1 TABLET BY MOUTH EVERY DAY IN THE MORNING 10/28 completed Not Available Not Available Not Available bupropion HCl XL 150 mg 24 hr tablet, extended release TAKE 1 TABLET BY MOUTH EVERY DAY 01/15 completed Not Available Not Available Not Available omega-3 acid ethyl esters 1 gram capsule TAKE 2 CAPSULES BY MOUTH EVERY DAY active Not Available Not Available No t Available FeroSul 325 mg (65 mg iron) tablet TAKE 1 TABLET BY MOUTH TWICE DAILY WITH FOOD 05/18 completed Not Available Not Available Not Available levothyroxi ne 75 mcg capsule Take 1 capsule every day by oral route in the morning. 12/05 completed Not Available Not Available Not Available loratadine 10 mg capsule Take 1 capsule every day by oral route. 12/05 completed Not Available Not Available Not Available Farxiga 10 mg tablet Take 1 tablet every day by oral route for 30 days. active Not Available Not Available No t Available potassium chloride ER 20 mEq tablet,exte nded release TAKE 2 TABLETS BY MOUTH TWICE DAILY WITH A MEAL 05/18 completed Not Available Not Available Not Available Trulicity 1.5 mg/0.5 mL subcutaneou s pen injector ADMINISTE R 1.5 MG UNDER THE SKIN EVERY WEEK active Not Available Not Available No t Available Trulicity 0.75 mg/0.5 mL subcutaneou s pen injector ADMINISTE R 0.75 MG UNDER THE SKIN EVERY WEEK 04/28 completed Not Available Not Available Not Available OneTouch Verio Flex Meter USE DIRECTED TWICE DAILY active Not Available Not Available No t Available Ozempic 0.25 mg or 0.5 mg (2 mg/1.5 mL) subcutaneou s pen injector Inject 0.5 mg every week by subcutane ous route. 01/29 completed Not Available Not Available Not Available OneTouch Ultra Blue Test Strip USE 2 STRIPS TO TEST BLOOD SUGAR EVERY DAY 2019 active Not Available Not Available Not Avai lable OneTouch Delica Plus Lancet 33 gauge DIRECTED TWICE DAILY active Not Available Not Available No t Available albuterol sulf 90 mcg/actuati on breath activated powder inhaler,sen sor Inhale 2 puffs every 4 hours by inhalatio n route. 12/05 completed Not Available Not Available Not Available Trulicity 3 mg/0.5 mL subcutaneou s pen injector ADMINISTE R 3 MG UNDER THE SKIN EVERY WEEK 09/11 completed Not Available Not Available Not Available Trulicity 4.5 mg/0.5 mL subcutaneou s pen injector ADMINISTE R 4.5 MG UNDER THE SKIN EVERY WEEK 01/15 completed Not Available Not Available Not Available BinaxNOW COVID-19 Ag Self Test kit TEST DIRECTED TODAY 07/29 completed Not Available Not Available Not Available Ozempic 0.25 mg or 0.5 mg (2 mg/3 mL) subcutaneou s pen injector Inject by subcutane ous route for 56 days. 09/11 completed Not Available Not Available Not Available Vitals Date Recorded Body height Provider Name an d Address Organization Details Last Updated DateTime 04/27/2023 149.86 cm Joann [place]oland [place] - [facility] 04/27/2023 11:58:35 Date Recorded Body mass index (BMI) Body weight Provider Name and Address Organization Details Last Updated DateTime 04/27/2023 91.7 kg/m2 718173.94 g Joann [place] - [facility] 0 04/27/2023 12:06:55 Date Recorded Heart rate Provider Name an d Address Organization Details Last Updated DateTime 04/27/2023 112 /min Joann [place] [facility] 04/27/2023 12:07:02 Date Recorded Oxygen saturation Oxygen saturation in Arterial blood by Pulse oximetry Provider Name and Address Organization Details Last Updated DateTime 04/27/2023 98 % 98 % Joann [place] [facility] 04/27/2023 12:07:05 Date Recorded Body height Provider Name an d Address Organization Details Last Updated DateTime 06/06/2023 149.86 cm Joann [place] [facility] 06/06/2023 12:04:48 Date Recorded Body mass index (BMI) Body weight Provider Name and Address Organization Details Last Updated DateTime 06/06/2023 92.7 kg/m2 948981.9 g Joann [place] [facility] 12:04:53 Date Recorded Heart rate Provider Name an d Address Organization Details Last Updated DateTime 06/06/2023 98 /min Joann [place] [facility] 06/06/2023 12:05:05 Date Recorded Oxygen saturation Oxygen saturation in Arterial blood by Pulse oximetry Provider Name and Address Organization Details Last Updated DateTime 06/06/2023 96 % 96 % Joann [place] [facility] 06/06/2023 12:05:07 Date Recorded Body height Provider Name an d Address Organization Details Last Updated DateTime 07/18/2023 149.86 cm Diann Hannah [place] [facility] 12:18:12 Date Recorded Body mass index (BMI) Body weight Provider Name and Address Organization Details Last Updated DateTime 07/18/2023 94.5 kg/m2 483133.23 g BOBO CLAUDIO Attn: [address] [place], [address], [facility] 07/18/2023 12:21:14 Date Recorded Heart rate Provider Name an d Address Organization Details Last Updated DateTime 07/18/2023 100 /min Kimberley CLAUDIO Attn: [address] [place], [address], [facility] 07/19/2023 11:09:45 Date Recorded Respiratory rate Provider Name a nd Address Organization Details Last Updated DateTime 07/18/2023 20 /min Diann Hannah MA [facility] 12:18:33 Date Recorded Oxygen saturation Oxygen saturation in Arterial blood by Pulse oximetry Provider Name and Address Organization Details Last Updated DateTime 07/18/2023 99 % 99 % Diann Hannah MA [facility] 07/18/2023 12:18:37 Date Recorded Body height Provider Name an d Address Organization Details Last Updated DateTime 09/04/2023 149.86 cm Joann Noland [facility] 09/04/2023 11:57:52 Date Recorded Body mass index (BMI) Body weight Provider Name and Address Organization Details Last Updated DateTime 09/04/2023 92.9 kg/m2 178221.49 g BOBO CLAUDIO Attn: [address] [place], [address], [facility] 09/04/2023 12:15:11 Date Recorded Heart rate Provider Name an d Address Organization Details Last Updated DateTime 09/04/2023 72 /min Joann Noland [facility] 09/04/2023 12:00:49 Date Recorded Oxygen saturation Oxygen saturation in Arterial blood by Pulse oximetry Provider Name and Address Organization Details Last Updated DateTime 09/04/2023 98 % 98 % Joann Noland [facility] 09/04/2023 12:00:51 Date Recorded Body height Provider Name an d Address Organization Details Last Updated DateTime 01/16/2024 149.86 cm Joann Noland [facility] 01/16/2024 13:58:35 Date Recorded Body mass index (BMI) Body weight Provider Name and Address Organization Details Last Updated DateTime 01/16/2024 92.3 kg/m2 525528.71 g Joann Noland [facility] 1 03/17/2023 14:03:12 Date Recorded Heart rate Provider Name an d Address Organization Details Last Updated DateTime 01/16/2024 103 /min Joann Noland [facility] 01/16/2024 14:03:25 Date Recorded Oxygen saturation Oxygen saturation in Arterial blood by Pulse oximetry Provider Name and Address Organization Details Last Updated DateTime 01/16/2024 98 % 98 % Joann Noland [facility] 01/16/2024 14:03:31 Date Recorded Systolic blood pressure Diastolic blood pressure Provider Name and Address Organization Details Last Updated DateTime 06/06/2023 135 mm[Hg] 84 mm[Hg] Joann Noland [facility] 06/06/2023 12:05:00 Date Recorded Systolic blood pressure Diastolic blood pressure Provider Name and Address Organization Details Last Updated DateTime 07/18/2023 160 mm[Hg] 85 mm[Hg] Diann Hannah MA [facility] 07/18/2023 12:18:22 Date Recorded Systolic blood pressure Diastolic blood pressure Provider Name and Address Organization Details Last Updated DateTime 09/04/2023 134 mm[Hg] 85 mm[Hg] Joann Noland [facility] 09/04/2023 12:00:46 Date Recorded Systolic blood pressure Diastolic blood pressure Provider Name and Address Organization Details Last Updated DateTime 01/16/2024 133 mm[Hg] 85 mm[Hg] Joann Noland [facility] 01/16/2024 14:03:15 Social History Question Answer Notes LastModified by Organizat ion Details LastModified Time Tobacco Smoking Status Current Every Day Smoker Joann gregory [facility] 07/26/2021 16:16:21 What Is Your Level Of Alcohol Consumption? Occasional Information not available 12/06/2019 What Is Your Level Of Caffeine Consumption? Occasional Information not available 12/06/2019 Do You Or Have You Ever Used E-cigarettes Or Vape? Never Used Electronic Cigarettes Information not available 12/06/2019 Live Alone Or With Others? With Others Information not available 12/06/2019 What Was The Date Of Your Most Recent Tobacco Screening? 07/18/2023 [email or web address] Information not available 07/18/2023 How Many Children Do You Have? 0 Information not available 12/06/2019 Do You Have Smoke And Carbon Monoxide Detectors In Your Home? Yes Information not available 04/27/2023 Are You Passively Exposed To Smoke? Yes Information no t available 04/27/2023 Do You Or Have You Ever Used Smokeless Tobacco? Never Used Smokeless Tobacco Information not available 12/06/2019 How Much Tobacco Do You Smoke? No Information not available 12/06/2019 General Stress Level Medium Information not available 12/06/2019 Do You Use Any Illicit Or Recreational Drugs? No [email or web address] Information not available 12/23/2020 On What Date Was Tobacco Cessation Counseling Provided? 07/18/2023 [email or web address] Information not available 07/18/2023 Sex: Female Functional Status Question Answer Note LastModified by Organization D etails LastModified Time Are you able to care for yourself? Yes Information n ot available 12/06/2019 Mental Status None recorded. Family History Relationship Description Onset Age of this Age Resolved Age Notes LastModified by Organization Details LastModified Time Father No current problems or disability Not available 12/05 16:22:54 Mother No current problems or disability Not available 12/05 16:22:54 Medical History Condition Response Coronary Artery Disease N Other N High Blood Pressure Y Atrial Fibrillation N Kidney or Bladder Problems N Thyroid Problems N GI Problems N Depression N COPD N Blood Clots N Skin Problems N Anemia N Heart Attack (NV) N Anxiety Disorder N Diabetes Y Muscle, Joint, or Bone Problems N Seizures/Epilepsy N Acid Reflux (GERD) N Cancer N Stroke N Asthma N Allergies N High Cholesterol Y Hepatitis N Liver Disease N Headaches N Heart Failure N Osteoporosis N Gynecological HistoryNo gynecological history recorded. Obstetrics History GPAL:G 0 P 0 0 0 0 Type Value Multiple Births 0 Full Term 0 Induced 0 Spontaneous 0 Premature 0 Living 0 Ectopics 0 Total 0 Immunizations Vaccine Type Date Status Note Provider Nam e and Address Organization Details Recorded Time COVID-19, mRNA, LNP-S, PF, 100 mcg/0.5mL dose or 50 mcg/0.25mL dose 1 completed Ten Salas [place] null, [place] - [facility] 12/23/2020 17:24:42 COVID-19, mRNA, LNP-S, PF, 100 mcg/0.5mL dose or 50 mcg/0.25mL dose 1 completed Ten Salas [place], [place] [facility] 12/23/2020 17:25:00 Pneumococcal conjugate PCV20, polysaccharide [id number] conjugate, adjuvant, PF 3 completed Joann [place], [place] [facility] 02/22/2022 11:13:35 Tdap 3 completed BOBO CLAUDIO Attn: [address]ing[address] [place], [address], [place] [facility] 07/29/2022 20:40:19 Past Encounters Encounter ID Performer Location Encounter Start Date Encounter Closed Date Diagnosis/Indication Diagnosis SNOMED-CT Code Diagnosis ICD10 Code Diagnosis Note [id number] Saritha Pham MA [facility] [address] [place] [address] 06/11/2019 09:37:59 06/12/2019 15:14:59 Diabetes mellitus 44580967 E11.9 Patient was diagnosed with DM 2017 and was off all medication s for over on year. - check sugars daily; goal fasting <130 and 1-2 hours after meal <180. call office if sugars falling under 70. Patient aware of hypoglycem ia symptoms. - discussed diet: avoid sugars, pasta, tortillas, bread, rice, potatoes - Excercise 30 min 5x week - diabetic eye exam - foot exam at next visit Essential hypertension 04512311 I10 BP check tomorrow in office medication regiment: lisinopril 10mg, diltiazem 120mg qd Advised to check BP regularly with a goal of <140/90, if BP consistent ly >140/90, advised to contact clinic Discussed DASH diet Advised weight loss and diet is best way to control BP Advised 30 minutes of exercise minimum daily Advised tobacco, alcohol, caffeine all increase BP Advised goal for BP is <140/90 Hyperlipidemia 43740923 E78.5 checking cholestero l 06/12/19. instructed to come fasting. Not taking statin but does have DM. Will ge baseline liver enzymes before starting medication . Depressive disorder 1170 8468 F32.9 Patient has been diagnosed with depression years ago. She was taking bupropion and it was helping but was off medication for many months. She was started up on medication while in hospital. - continue bupropion 150 mg qd- advised counseling -Patient was educated on his prescribed medication s, rationale for medication s, dosing indication s, adverse reactions, black box warning, dosing indication s, SE -Call center with questions/ concerns. Go to ER or call 911 for crisis (e.g., suicidal behaviors, suicidal ideations, intent or plan emerge). Additional ly, patient has suicide hotline #. - f/u one month - call with questions Asthma [id number] J45.90 9 Patient has asthma. She takes albuterol prn. She uses it occasional ly. Morbid obesity 552837992 E66.01 weight >500lbs. She has tried to cahnge some eating habbits. She has stopped soday adn only drinking water.- we had dicussion about diet, excercise, portion sizes.- start with 10 minutes/ day walking- if sitting in chair she should be moving her arms as this will burn calories- watch carbs, sweets, sugars Falls [id number] R29.6 patient hvaing falls after getting released from hospitals. Had two days of PT in hospital but could use more to regain strength in leg. - PT- ER if numbness/ tingling saddle region, incontinen ce [id number] Saritha Pham MA [facility] [address] [place] [address] 06/14/2019 09:50:41 06/18/2019 03:46:44 [id number] Saritha Pham MA [facility] [address] [place] [address] 06/18/2019 09:21:47 06/20/2019 03:46:36 [id number] BOBO CLAUDIO [facility] [address] [place] [address] 12/06/2019 16:05:33 12/09/2019 11:24:41 Diabetes mellitus 72904073 E11.9 A1C May 26.4, wnl. Patient has been off medication since June. She is not compliant with diet or excercise. Not checking sugars. Spent time explaining diabetes, prognosis, health risks, management , testing. Patient agrees to take once per day. - check sugars daily; goal fasting <130 and 1-2 hours after meal <180. call office if sugars falling under 70. Patient aware of hypoglycem ia symptoms. - discussed diet: avoid sugars, pasta, tortillas, bread, rice, potatoes - Excercise 30 min 5x week - diabetic eye exam - foot exam at next visit Hypothyroidism 22799499 E03.9 patient with uncontroll ed hypothyroi dism. will check labs. Was taking 75mcg Cervical lymphadenopathy [id number] R59.0 patient has enlarged mobile supraclavi cular lymphadeno ranjith. Morbid obesity 888090677 E66.01 weight 466lbs. Drinking soda and not watching diet.- we had discussion about diet, excercise, portion sizes.- start with 10 minutes/ day walking- if sitting in chair she should be moving her arms as this will burn calories- watch carbs, sweets, sugars Depressive disorder 8050 3412 F32.9 Patient has been diagnosed with depression years ago. She was taking bupropion and it was helping but was off medication for many months. Does not want medication at this time. denies SI/HI. Has caused self harm in the past (cutting two years ago) - advised counseling , denies at this time -Patient was educated on his prescribed medication s, rationale for medication s, dosing indication s, adverse reactions, black box warning, dosing indication s, SE -Call center with questions/ concerns. Go to ER or call 911 for crisis (e.g., suicidal behaviors, suicidal ideations, intent or plan emerge). Additional ly, patient has suicide hotline #. - f/u one month - call with questions [phone] BOBO CLAUDIO [facility] [address] [place] [address] 08/21/2020 08:02:48 08/25/2020 16:49:24 Hypothyroidism 98566938 E03.9 patient with uncontroll ed hypothyroi dism. will check labs. Was taking 75mcg. Again explained importance of medication adherence. Explained this is the pill that fixes her metabolis m hormone. and will help her lose weight. - needs labs before initiating medication Diabetes mellitus 392948 09 E11.9 A1C May 2019 6.4. Recent ER visit shows glucose number of 150's. Patient has been off medication but recently restarted. She is not compliant with diet or exercise. Not checking sugars. Explained to patient importance of taking medication s and poor health outcomes if not controlled . needs labs before initiating medication - check sugars daily; goal fasting <130 and 1-2 hours after meal <180. call office if sugars falling under 70. Patient aware of hypoclycem ic symptoms. - discussed diet: avoid sugars, pasta, tortillas, bread, rice, potatoes - exercise 30 min 5x week - diabetic eye exam - foot exam at next visit Morbid obesity 055822585 E66.01 last weight 466lbs. not watching diet and states she is missing metabolis m hormone. Patient again educated on thyroid medication and importance of adherence and f/u testing.- we have discussed diet, exercise, portion sizes.- start with 10 minutes/ day walking- if sitting in chair she should be moving her arms as this will burn calories- watch carbs, sweets, sugars Depressive disorder 1738 2159 F32.9 Patient has been diagnosed with depression years ago. She was taking bupropion and it was helping but was off medication for many months. Does not want medication at this time as it makes her feel cranky . - f/u in person [id number] BOBO CLAUDIO [facility] [address] [place] [address] 10/28/2020 17:33:02 10/31/2020 10:16:59 Diabetes mellitus 13181377 E11.9 A1C May 2019 6.4. Recent ER visit shows glucose number of 150's and otday in office>300 . Patient has been off medication but recently restarted. She is not compliant with diet or exercise. Not checking sugars. Explained to patient importance of taking medication s and poor health outcomes if not controlled . needs labs before initiating medication - check sugars daily; goal fasting <130 and 1-2 hours after meal <180. call office if sugars falling under 70. Patient aware of hypoclycem ic symptoms. - discussed diet: avoid sugars, pasta, tortillas, bread, rice, potatoes - exercise 30 min 5x week - diabetic eye exam - foot exam at next visit Essential hypertension [id number] I10 BP elevated at 140/90. had stopped taking all her medication s medication regiment: lisinopril 10mg, diltiazem 120mg qd Advised to check BP regularly with a goal of <140/90, if BP consistent ly >140/90, advised to contact clinic Discussed DASH diet Advised weight loss and diet is best way to control BP Advised 30 minutes of exercise minimum daily Advised tobacco, alcohol, caffeine all increase BP Advised goal for BP is <140/90 Depressive disorder 3548 9007 F32.9 Patient has been diagnosed with depression years ago. She was taking bupropion and it was helping but was off medication for many months. Does not want medication at this time as it makes her feel cranky . Will try prozac as she states she is not good at taking pills - f/u in person Binge eating disorder 43 [id number] F50.81 patient has binge eating disorder. treating with prozac. she will consider therapy. Hypothyroidism 17639656 E03.9 patient with uncontroll ed hypothyroi dism. will check labs. Was taking 75mcg. Again explained importance of medication adherence. Explained this is the pill that fixes her metabolis m hormone. and will help her lose weight. - needs labs before initiating medication Morbid obesity 374376273 E66.01 weight today 566lbs. not watching diet and states she is missing metabolis m hormone. Patient again educated on thyroid medication and importance of adherence and f/u testing.- we have discussed diet, exercise, portion sizes.- start with 10 minutes/ day walking- if sitting in chair she should be moving her arms as this will burn calories- watch carbs, sweets, sugars [id number] [facility] [address] [place] [address] 12/23/2020 17:13:51 12/28/2020 07:04:15 Hypothyroidism 15642316 E03.9 patient with uncontroll ed hypothyroi dism. will check labs. Was taking 75mcg. Again explained importance of medication adherence. Explained this is the pill that fixes her metabolis m hormone. and will help her lose weight. - needs labs before initiating medication Morbid obesity 771626126 E66.01 weight today 451 which is down from 501 lbs. not following diet. Patient again educated on thyroid medication and importance of adherence and f/u testing.- we have discussed diet, exercise, portion sizes.- start with 10 minutes/ day walking- if sitting in chair she should be moving her arms as this will burn calories- watch carbs, sweets, sugars Diabetes mellitus 355998 09 E11.9 A1C May 2019 6.4. Patient state she is taking medication as prescribed now. needs labs before initiating medication - check sugars daily; goal fasting <130 and 1-2 hours after meal <180. call office if sugars falling under 70. Patient aware of hypoclycem ic symptoms. - discussed diet: avoid sugars, pasta, tortillas, bread, rice, potatoes - exercise 30 min 5x week - diabetic eye exam - foot exam at next visit Essential hypertension 58081202 I10 BP elevated at 130/90. Took all medication today.medi cation regiment: lisinopril 10mg, amlodipine 10mg, metorolol 50mg bid, hydralazin e 25 mg TID Advised to check BP regularly with a goal of <140/90, if BP consistent ly >140/90, advised to contact clinic Discussed DASH diet Advised weight loss and diet is best way to control BP Advised 30 minutes of exercise minimum daily Advised tobacco, alcohol, caffeine all increase BP Advised goal for BP is <140/90 Depressive disorder 2220 7545 F32.9 Patient has been diagnosed with depression years ago. She was taking bupropion and it was helping but was off medication for many months. Does not want medication at this time as it makes her feel cranky . Will try prozac as she states she is not good at taking pills - f/u in person Binge eating disorder 43 [id number] F50.81 patient has binge eating disorder. treating with prozac. she will consider therapy. Supraclavi cular lymphadenopathy 282422043 R59.0 Patient has right sided enlarged lymph-node . will work up Vaping [id number] Z77.29 Per notes from 11/07/20 hospitaliz ation, her respiratoy failure was due to vaping. encouraged to stop Respiratory failure 4096 70620 J96.[address] [facility] on 11/07/20 for sob and xray found diffuse interstiti al alveolar infiltrate s. She was started on methylpred nisolone, bronchodil ators, vanc and levaquin for possible pneumonia and IV lasix for possible fluid overload. . she continues to deteriorat e and required intubation and went into hypercarbi c and hypoxemic respirator y failure W blood gas of 7.03/105/1 74 on peep of 14 FIO2 80%. Patient went into shock requiring vasopressi n and levophed. She was then sedated with fentanyl, versed, propofol and CISatrocur ium drips. She was on extubated 11/15. respirator y failure believed to be due to vaping? per hospital notes. She was released on 11/20/20 She also had hospitaliz ation in 2019 for pneumonia requiring hospitaliz ation and ECMO.extub ated [id number] [facility] [address] [place] [address] 05/18/2021 16:34:14 05/21/2021 09:54:33 Diabetes mellitus 26960655 E11.9 A1C 6.2% 04/2021, 6.4% 05/2019 . Patient state she is taking medication as prescribed now. checks glucose 2-3 times weekly. plan is to increase farxiga and possibly cut back on other medication to decrease pill dose. will discuss at f.u in one month. also consider GLP-1 for weight loss. medication s: glipizide 5 mg am, farxiga 10mg qd, metformin 500mg qd - discussed diet: avoid sugars, pasta, tortillas, bread, rice, potatoes - ppsv23: will give next visit - diabetic eye exam: has not yet done. order sent. - foot exam: done 05/18/20, normal sensation. slightly decreased posterior pulses, possible due to habitus Essential hypertension 08626206 I10 BP elevated at 130/90. Took all medication today.medi cation regiment: lisinopril 10mg, amlodipine 10mg, metoprolol 50mg bid, Advised to check BP regularly with a goal of <140/90, if BP consistent ly >140/90, advised to contact clinic Discussed DASH diet Advised weight loss and diet is best way to control BP Advised 30 minutes of exercise minimum daily Advised tobacco, alcohol, caffeine all increase BP Advised goal for BP is <140/90 Hyperlipidemia 91178425 E78.5 checking cholestero l 06/12/19. instructed to come fasting. Not taking statin but does have DM. Will ge baseline liver enzymes before starting medication . Hypothyroidism 87388077 E03.9 takes 75mcg. patient taking as prescribed TSH/T4: normal 04/2021 Chest pain 62777115 R07. 9 Patient with BMI 90.9, DM, hyperlipid emia, hypothyroi dism c/o chest pain 2-3 x per week walking or sitting. sometimes doing dishes. she endorses sob on walking. DM: controlled with A1C 6.2 Myelocytes in blood 2757 05275 R79.89 100 cells/uL meramyeloc ytes and 300 cells/uL myleocytes in presence of right supra-clav icular lymphadeno pahy following Dr Hall, hematologi , May 24 is next visit. Cervical lymphadenopathy 216150620 R59.0 patient has enlarged mobile supraclavi cular lymphadeno ranjith. Morbid obesity 488996199 E66.01 weight today 451 which is down from 501 lbs. n - we have discussed diet, exercise, portion sizes.- start with 10 minutes/ day walking- if sitting in chair she should be moving her arms as this will burn calories- watch carbs, sweets, sugars [id number] [facility] [address] [place] [address] 07/26/2021 16:05:44 07/27/2021 12:53:11 Otitis media 48488731 H66.93 3 weeks of b/l ear pain. On exam b/l ear are erythemato us and bulging. allergy to amoxicilli n (facial swelling). Will trial doxy and f/u in 72 hours if not improving. - abx as prescribed - tylenol/IB U for pain prn [id number] [facility] [address] [place] [address] 02/16/2022 10:13:12 02/17/2022 11:57:11 Diabetes mellitus 71079871 E11.9 A1C 6.2% 04/2021, 6.4% 05/2019 . not checking glucose or taking medication since 08/2021. We discuss GLP-1. Her mom is on trulicity and doing well. she denies fam/person al hx thyroid cancer. Denies pmhxz pancreatit is. F/U one month. Discussed importance of compliance . medication s: restart farxiga and add on trulicity. hold on metformin and glipizide - discussed diet: avoid sugars, pasta, tortillas, bread, rice, potatoes- ppsv23: prevnar 20 01/2022- diabetic eye exam: has not yet done. order sent.- foot exam: done 05/18/20, normal sensation. slightly decreased posterior pulses, possible due to habitus Hypothyroidism 34124733 E03.9 takes 75mcg but has not taken since August 2021 TSH/T4: normal 04/2021 Administra tion of pneumococcal vaccine 61715746 Z23 given today Morbid obesity 252794086 E66.01 weight today 465 today which is up from 451 at last visit (07/2021). she has stopped all medication s. At this point with DM , hypothyroi d and morbid obesity she should see endocrinol ogy. - we have discussed diet, exercise, portion sizes.- start with 10 minutes/ day walking- if sitting in chair she should be moving her arms as this will burn calories- watch carbs, sweets, sugars Cervical lymphadenopathy 181371490 R59.0 patient has enlarged mobile supraclavi cular lymphadeno ranjith R>L Depressive disorder 0894 7863 F32.9 Patient has been diagnosed with depression years ago.She has been off months. will re-start. F/U closely in one month. - advised counseling -Patient was educated on his prescribed medication s, rationale for medication s, dosing indication s, adverse reactions, black box warning, dosing indication s, SE (e.g., decreased libido, weight gain, gynecomast ia, and galactorrh ea) and the risks and benefits. -Call center with questions/ concerns. Go to ER or call 911 for crisis (e.g., suicidal behaviors, suicidal ideations, intent or plan emerge). Additional ly, patient has suicide hotline #. - f/u one month - call with questions Essential hypertension 72583175 I10 BP elevated at 138/90. Not taken any medication since 08/2021.med ication regiment: lisinopril 10mg, amlodipine 10mg, metoprolol 50mg bid, Advised to check BP regularly with a goal of <140/90, if BP consistent ly >140/90, advised to contact clinic Discussed DASH diet Advised weight loss and diet is best way to control BP Advised 30 minutes of exercise minimum daily Advised tobacco, alcohol, caffeine all increase BP Advised goal for BP is <140/90 Smoker 24816829 F17.200 1/2 ppd x 1 yearadvise d quitting. she was vaping nicotine before. [id number] [facility] [address] [place] [address] 04/28/2022 09:20:31 04/28/2022 09:55:08 Diabetes mellitus 76749322 E11.9 A1C 9.4% (04/28/2022) 6.2% 04/2021, 6.4% 05/2019 . not checking glucose states she is taking weekly trulicity. taking farxiga daily still drinking milo sweet tea and 1-[address] Pepper most days. medication s: farxiga 10mg, trulicity 1.5 mg q weekly Foot exam: done 04/2022, normal sensation. slightly decreased posterior pulses,pps v23: prevnar 20 01/2022Eye exam: 04/26/2022. will go back one month as unable to dialate eyes Hypothyroidism 61940063 E03.9 normal thyroid at last visit without taking medication s. repeat. has not taken levothyrox ine. TSH/T4: normal 04/2021 Morbid obesity 255673870 E66.01 weight today 461down 4 lbs since 01/2022. advised cutting out soda and sweet tea. increasing trulicity. She declines bariatric surgery at this time. - we have discussed diet, exercise, portion sizes.- start with 10 minutes/ day walking- if sitting in chair she should be moving her arms as this will burn calories- watch carbs, sweets, sugars Depressive disorder 8033 8396 F32.9 doing well on prozac. - advised counseling -Patient was educated on his prescribed medication s, rationale for medication s, dosing indication s, adverse reactions, black box warning, dosing indication s, SE (e.g., decreased libido, weight gain, gynecomast ia, and galactorrh ea) and the risks and benefits.- Call center with questions/ concerns. Go to ER or call 911 for crisis (e.g., suicidal behaviors, suicidal ideations, intent or plan emerge). Additional ly, patient has suicide hotline #.- f/u one month- call with questions Essential hypertension 64093264 I10 BP elevated at 140/88. did not take lisinopril todaymedic ation regiment: lisinopril 10mg Advised to check BP regularly with a goal of <140/90, if BP consistent ly >140/90, advised to contact clinic Discussed DASH diet Advised weight loss and diet is best way to control BP Advised 30 minutes of exercise minimum daily Advised tobacco, alcohol, caffeine all increase BP Advised goal for BP is <140/90 Smoker 42333831 F17.200 1/2 ppd x 1 yearadvise d quitting. she was vaping nicotine before. Musculoskeletal pain 279 866873 M79.10 chest pain on palpation. cough has improved. advised taking nsaid with food prn. [id number] [facility] [address] [place] [address] 05/30/2022 10:52:04 05/30/2022 11:34:42 Diabetes mellitus 02689974 E11.9 A1C 9.4% (04/28/2022) 6.2% 04/2021, 6.4% 05/2019 . not checking glucose states she is taking weekly trulicity and farxiga. dose recently increased. will increase again in one month. medication s: farxiga 10mg, trulicity 1.5 mg q weekly Foot exam: done 04/2022, normal sensation. slightly decreased posterior pulses,pps v23: prevnar 20 01/2022Eye exam: 04/26/2022. will go back one month as unable to dilate eyes Morbid obesity 659695288 E66.01 weight today 444 from 461down She declines bariatric surgery at this time. - we have discussed diet, exercise, portion sizes.- agrees to one mile walk daily split up, pt feels this is attainable - cut out sugary gatorade- incorporat e more protein in diet- if sitting in chair she should be moving her arms as this will burn calories- watch carbs, sweets, sugars Neutrophilia [id number] D 72.0 patient will call her hematologi and re-schedul e [id number] [facility] [address] [place] [address] 07/01/2022 10:39:58 07/01/2022 11:20:32 Morbid obesity 608618135 E66.01 gained 10 lbs. drinking regular soda again. stopped all oral pills. still ejecting trulicity. will send to bariatric surgery./ - we have discussed diet, exercise, portion sizes.- agrees to one mile walk daily split up, pt feels this is attainable - cut out sugary Gatorade- incorporat e more protein in diet- if sitting in chair she should be moving her arms as this will burn calories- watch carbs, sweets, sugars Depressive disorder 0568 9007 F32.9 stopped prozac x 4 weeks. restart. - advised counseling -Patient was educated on his prescribed medication s, rationale for medication s, dosing indication s, adverse reactions, black box warning, dosing indication s, SE (e.g., decreased libido, weight gain, gynecomast ia, and galactorrh ea) and the risks and benefits.- Call center with questions/ concerns. Go to ER or call 911 for crisis (e.g., suicidal behaviors, suicidal ideations, intent or plan emerge). Additional ly, patient has suicide hotline #.- f/u one month- call with questions Diabetes mellitus 169227 09 E11.9 A1C 7.5% (06/2022) 9.4% (04/28/2022) 6.2% 04/2021, 6.4% 05/2019 . not checking glucose states she is taking weekly trulicity. medication s: farxiga 10mg, trulicity 1.5 mg q weekly Foot exam: done 04/2022, normal sensation. slightly decreased posterior pulses,pps v23: prevnar 20 01/2022Eye exam: 04/26/2022. will go back one month as unable to dilate eyes Drug abuse 50640710 F19. 10 doing cocaine and ecstasy on weekends to lose weight Suicidal thoughts 840041 6 R45.851 passive SI. denies plan to hurt self. If it wasn't for my nephews I would not be here - ER Major depr essive disorder 626402672 F32.9 depression , hopeless, loneliness , increased eating, Passive SI - declines therapy- agrees to start prozac again. discussed not stopping abruptly- SI hotline or 911 if SI [id number] [facility] [address] [place] [address] 07/29/2022 11:41:14 07/29/2022 13:01:19 Hyperlipidemia 35572442 E78.5 Depressive disorder 3548 9007 F32.9 better contorlled . denies si/hi - advised counseling -Patient was educated on his prescribed medication s, rationale for medication s, dosing indication s, adverse reactions, black box warning, dosing indication s, SE (e.g., decreased libido, weight gain, gynecomast ia, and galactorrh ea) and the risks and benefits.- Call center with questions/ concerns. Go to ER or call 911 for crisis (e.g., suicidal behaviors, suicidal ideations, intent or plan emerge). Additional ly, patient has suicide hotline #.- f/u one month- call with questions Diabetes mellitus 640514 09 E11.9 A1C 7.5% (06/2022) 9.4% (04/28/2022) 6.2% 04/2021, 6.4% 05/2019 . not checking glucose states she is taking weekly trulicity. medication s: farxiga 10mg, trulicity 3 mg q weekly Foot exam: done 04/2022, normal sensation. slightly decreased posterior pulses,pps v23: prevnar 20 01/2022Eye exam: 04/26/2022. will go back one month as unable to dilate eyes Administra tion of diphtheria, pertussis, and tetanus vaccine 543760070 Z23 Supraclavi cular lymphadenopathy 876962267 R59.0 Patient has right sided enlarged lymph-node . will work up [id number] [facility] [address] [place] [address] 02/27/2023 09:16:23 02/27/2023 09:48:17 Acute otitis media 3756468 H66.92 pt with DM and ear pain x 3 weeksPEX: L erythemato us and retract TM, pharynx erythemato us. no sinus pain on palpation. allergy to penicillin trial doxy Diabetes mellitus 097695 09 E11.9 non compliant with f/u visits, medication s, glucose checks, diet. A1C 8.2 (02/2023) 7.5% (06/2022) 9.4% (04/28/2022) 6.2% 04/2021, 6.4% 05/2019 Medication s: trulicity 4.5mg, farxiga (not taking) Foot exam: done 04/2022, normal sensation. slightly decreased posterior pulses,Eye exam: 04/26/2022. will go back one month as unable to dilate eyesAlb/Cr : 07/2022 normalpneu monia vaccine: 02/2022 Morbid obesity 524521077 E66.01 gained 10 lbs. drinking regular soda again. stopped all oral pills. still injecting trulicity. will send to bariatric surgery. - we have discussed diet, exercise, portion sizes.- agrees to one mile walk daily split up, pt feels this is attainable - cut out sugary Gatorade- incorporat e more protein in diet- if sitting in chair she should be moving her arms as this will burn calories- watch carbs, sweets, sugars Hypothyroidism 94348068 E03.9 normal thyroid at last visit without taking medication s. repeat. has not taken levothyrox ine. TSH/T4: normal 04/2021 [id number] [facility] [address] [place] [address] 04/27/2023 11:57:43 04/27/2023 12:53:17 Diabetes mellitus 48796762 E11.9 non compliant with f/u visits, medication s, glucose checks, diet. A1C 8.2 (02/2023) 7.5% (06/2022) 9.4% (04/28/2022) 6.2% 04/2021, 6.4% 05/2019 Medication s: trulicity 4.5mg, farxiga (not taking) Foot exam: done 04/2022, normal sensation. slightly decreased posterior pulses,Eye exam: 04/26/2022. will go back one month as unable to dilate eyesAlb/Cr : 07/2022 normalpneu monia vaccine: 02/2022 Morbid obesity 615586155 E66.01 gained 10 lbs. drinking regular soda again. stopped all oral pills. still injecting trulicity. will send to bariatric surgery. - we have discussed diet, exercise, portion sizes.- agrees to one mile walk daily split up, pt feels this is attainable - cut out sugary Gatorade- incorporat e more protein in diet- if sitting in chair she should be moving her arms as this will burn calories- watch carbs, sweets, sugars Hypothyroidism 61979461 E03.9 normal thyroid at last visit without taking medication s. repeat. has not taken levothyrox ine. TSH/T4: normal 04/2021 Otitis ext azucena of right ear [id number] 176743 H60.91 Depressive disorder 3548 9007 F32.9 she stopped medication again and wanting to restart. no plans of Suicide but has had passive SI. f/u appointmen t made.- advised counseling -Patient was educated on his prescribed medication s, rationale for medication s, dosing indication s, adverse reactions, black box warning, dosing indication s, SE (e.g., decreased libido, weight gain, gynecomast ia, and galactorrh ea) and the risks and benefits.- Call center with questions/ concerns. Go to ER or call 911 for crisis (e.g., suicidal behaviors, suicidal ideations, intent or plan emerge). Additional ly, patient has suicide hotline #.- f/u one month- call with questions [id number] [facility] [address] [place] [address] 06/06/2023 11:54:31 06/06/2023 12:45:35 Morbid obesity 331488177 E66.01 will contact bariatric surgery dept this week - we have discussed diet, exercise, portion sizes.- agrees to one mile walk daily split up, pt feels this is attainable - cut out sugary Gatorade- incorporat e more protein in diet- if sitting in chair she should be moving her arms as this will burn calories- watch carbs, sweets, sugars Depressive disorder 2829 4372 F32.9 she stopped medication again and wanting to restart. no plans of Suicide but has had passive SI. f/u appointmen t made.- advised counseling -Patient was educated on his prescribed medication s, rationale for medication s, dosing indication s, adverse reactions, black box warning, dosing indication s, SE (e.g., decreased libido, weight gain, gynecomast ia, and galactorrh ea) and the risks and benefits.- Call center with questions/ concerns. Go to ER or call 911 for crisis (e.g., suicidal behaviors, suicidal ideations, intent or plan emerge). Additional ly, patient has suicide hotline #.- f/u one month- call with questions Obstructiv e sleep apnea syndrome 44566649 G47.33 BMI 92.7, hx of severe sleep apnea but never got contacted for machine, gasping for air at night. snoring, daytime somnolence . Perioral dermatitis 0340 85973 L71.0 small bumps per patient picture resembling perioral dermatitis will trial metronidaz ole [id number] [facility] [address] [place] [address] 07/18/2023 12:10:55 07/18/2023 12:55:50 Morbid obesity 918413568 E66.01 will contact bariatric surgery dept this week. importance of diet discussed she is to start following diet:- only diet drinks- 90-100 g protein- 2 servings of veggies- 2 L water 07/19/23: called patient, she states she has had almost 2 bottles water, ate eggs and spinach this morning and did take farxiga and lisinopril . - we have discussed diet, exercise, portion sizes.- agrees to one mile walk daily split up, pt feels this is attainable - cut out sugary Gatorade- incorporat e more protein in diet- if sitting in chair she should be moving her arms as this will burn calories- watch carbs, sweets, sugars Depressive disorder 8272 5626 F32.9 she stopped medication again and will restart. no SI/hi. f/u appointmen t made.- advised counseling -Patient was educated on his prescribed medication s, rationale for medication s, dosing indication s, adverse reactions, black box warning, dosing indication s, SE (e.g., decreased libido, weight gain, gynecomast ia, and galactorrh ea) and the risks and benefits.- Call center with questions/ concerns. Go to ER or call 911 for crisis (e.g., suicidal behaviors, suicidal ideations, intent or plan emerge). Additional ly, patient has suicide hotline #.- f/u one month- call with questions Obstructiv e sleep apnea syndrome 16901919 G47.33 BMI 94.5,sleep study completed, pending results Diabetes mellitus 263252 09 E11.9 non compliance with medication s, glucose checks, diet. A1C 8.2 (02/2023) 7.5% (06/2022) 9.4% (04/28/2022) 6.2% 04/2021, 6.4% 05/2019 Medication s: trulicity 4.5mg, farxiga (not taking) Foot exam: done 04/2022, normal sensation. slightly decreased posterior pulses,Eye exam: 04/26/2022. will go back one month as unable to dilate eyesAlb/Cr : 07/2022 normalpneu monia vaccine: 02/2022 Hyperlipidemia 01976078 E78.5 Wheezing 43925437 R06.2 advised she quit smokingtri al albuterolw ill send [facility] Essential hypertension 01597734 I10 BP elevated at 160/85. did not take lisinopril today. educated on taking all medication .medicatio n regiment: lisinopril 10mg Advised to check BP regularly with a goal of <140/90, if BP consistent ly >140/90, advised to contact clinic Discussed DASH diet Advised weight loss and diet is best way to control BP Advised 30 minutes of exercise minimum daily Advised tobacco, alcohol, caffeine all increase BP Advised goal for BP is <140/90 [id number] BOBO CLAUDIO [facility] [address] [place] [address] 09/04/2023 11:51:47 09/16/2023 11:48:37 Morbid obesity [id number] E66.01 will contact bariatric surgery dept this week. importance of diet discussed she is to start following diet:- only diet drinks- 90-100 g protein- 2 servings of veggies- 2 L water 07/19/23: called patient, she states she has had almost 2 bottles water, ate eggs and spinach this morning and did take farxiga and lisinopril . - we have discussed diet, exercise, portion sizes.- agrees to one mile walk daily split up, pt feels this is attainable - cut out sugary Gatorade- incorporat e more protein in diet- if sitting in chair she should be moving her arms as this will burn calories- watch carbs, sweets, sugars Depressive disorder [id number] F32.9 she stopped medication again and will restart. no SI/hi. f/u appointmen t made.- advised counseling -Patient was educated on his prescribed medication s, rationale for medication s, dosing indication s, adverse reactions, black box warning, dosing indication s, SE (e.g., decreased libido, weight gain, gynecomast ia, and galactorrh ea) and the risks and benefits.- Call center with questions/ concerns. Go to ER or call 911 for crisis (e.g., suicidal behaviors, suicidal ideations, intent or plan emerge). Additional ly, patient has suicide hotline #.- f/u one month- call with questions Obstructiv e sleep apnea syndrome [id number] G47.33 BMI 94.5,sleep study completed, pending results Diabetes mellitus 611577 09 E11.9 non compliance with medication s, glucose checks, diet. A1C 8.2 (08/2023) 8.2 (02/2023) 7.5% (06/2022) 9.4% (04/28/2022) 6.2% 04/2021, 6.4% 05/2019 Medication s: trulicity 4.5mg, farxiga (not taking) Foot exam: done 04/2022, normal sensation. slightly decreased posterior pulses,Eye exam: 04/26/2022. will go back one month as unable to dilate eyesAlb/Cr : 07/2022 normalpneu monia vaccine: 02/2022 Essential hypertension [id number] I10 BP elevated at 160/85. did not take lisinopril today. educated on taking all medication .medicatio n regiment: lisinopril 10mg Advised to check BP regularly with a goal of <140/90, if BP consistent ly >140/90, advised to contact clinic Discussed DASH diet Advised weight loss and diet is best way to control BP Advised 30 minutes of exercise minimum daily Advised tobacco, alcohol, caffeine all increase BP Advised goal for BP is <140/[address] imulating hormone level above reference range [id number] R94.6 [id number] BOBO CLAUDIO [facility] [address] [place] [address] 01/16/2024 13:55:02 01/16/2024 14:31:40 Morbid obesity [id number] E66.01 she had bariatric appointmen t scheduled she is to start following diet:- only diet drinks- 90-100 g protein- 2 servings of veggies- 2 L water 07/19/23: called patient, she states she has had almost 2 bottles water, ate eggs and spinach this morning and did take farxiga and lisinopril . - we have discussed diet, exercise, portion sizes.- agrees to one mile walk daily split up, pt feels this is attainable - cut out sugary Gatorade- incorporat e more protein in diet- if sitting in chair she should be moving her arms as this will burn calories- watch carbs, sweets, sugars Depressive disorder 3548 9007 F32.9 she stopped medication again and will restart. no SI/hi. f/u appointmen t made.- advised counseling -Patient was educated on his prescribed medication s, rationale for medication s, dosing indication s, adverse reactions, black box warning, dosing indication s, SE (e.g., decreased libido, weight gain, gynecomast ia, and galactorrh ea) and the risks and benefits.- Call center with questions/ concerns. Go to ER or call 911 for crisis (e.g., suicidal behaviors, suicidal ideations, intent or plan emerge). Additional ly, patient has suicide hotline #.- f/u one month- call with questions Obstructiv e sleep apnea syndrome [id number] G47.33 BMI 92.3sleep study completed, pending results Diabetes mellitus 352944 09 E11.9 non compliance with medication s, glucose checks, diet. A1C 9.3% (12/2023 8.2 (08/2023) 8.2 (02/2023) 7.5% (06/2022) 9.4% (04/28/2022) 6.2% 04/2021, 6.4% 05/2019 Medication s: trulicity 4.5mg (having dizziness and will switch to ozempic) , farxiga (not taking) Foot exam: done 2023, normal sensation. slightly decreased posterior pulses,Eye exam: 04/26/2022. will go back one month as unable to dilate eyesAlb/Cr : 07/2022 normalpneu monia vaccine: 02/2022 Essential hypertension [id number] I10 improved. needs refills Advised to check BP regularly with a goal of <140/90, if BP consistent ly >140/90, advised to contact clinic Discussed DASH diet Advised weight loss and diet is best way to control BP Advised 30 minutes of exercise minimum daily Advised tobacco, alcohol, caffeine all increase BP Advised goal for BP is <140/90 Lump in bi lateral breasts [id number] N63.20 patient has b/l breast masses, could be fibrocysti cobtain US and mammogram Cough [id number] R05.9 chronic coughadvis ed f/u with her pulmutd with pneumonia vaccine Supraclavi cular lymphadenopathy [id number] R59.0 Patient has right sided enlarged lymph-node . will work up Health Concerns Section Related Observation LastModified by Organization Detai ls LastModified Time None Recorded Concern Status LastModified by Organization Details LastModified Time None Recorded Advance Directives Directive None Recorded Payers Encounter Date Sequence Insurance Name Policy Number Policy Rothman Covered Member ID Rothman Member ID Guarantor Name 04/27/2023 1 [facility] (MEDICAID HMO) [id number] Octaviana Delgado [id number] Octaviana Delgado 06/06/2023 1 [facility] (MEDICAID HMO) [id number] Octaviana Delgado [id number] Octaviana Delgado 07/18/2023 1 [facility] (MEDICAID HMO) [id number] Octaviana Delgado [id number] Octaviana Delgado 09/04/2023 1 [facility] (MEDICAID HMO) [id number] 0003 Octaviana Delgado [id number] Octaviana Delgado 01/16/2024 1 [facility] (MEDICAID HMO) [id number] 0003 Octaviana Delgado [id number] Octaviana Delgado Notes Date Note Type Note Provider Name and Address Organization Details Recorded Time 04/27/2023 text/html Claudia presen ts for ER f/u, ear pain and depression seen for URI in ER 03/2023 and given doxy for ear infection. continues to have R ear pain. declines ENT referral at this time. denies fever, chills, chest pain or sob. Patient stopped all medications and recently restarted trulicity 3 weeks ago. She is not taking thyroid,depression meds, farxiga. states depression has been really bad last few weeks. I've been posting stuff on fb about not being here anymore. She has no plan to hurt self. She feels very depressed. wants to restart medication. her nephews and nieces keep me going. BOBO CLAUDIO Attn: Accounting,[address] [place], [address], [place] [facility] 04/27/2023 19:02:16 06/06/2023 text/html Sleep ProblemsRe ported bypatient.General Sleep:snoring;sleep apnea;witnessed apnea;unrefreshing sleep;excessive sleepiness during the day (daytime somnolence) Onset/Timing:chronic Severity:severe Quality:loud snoring;gasping for air Prescribed sleep medications:not taking medication to help sleep CPAP:does not have a machiene and needs one Octaviana presents for ER f/u on depression, Sleep apnea She has been unable to fill her trulicity all month due to shortage. will pick it up today states depression has been better and no longer feeling so bad. she took medication daily for 2 weeks, forgot the this week and took it most days on 4th week. denies SI/HI waking up 3x weekly gasping for air. does snore. hx of severe sleep apnea dx 2021 w/o f/u. feeling tired during the day. falling asleep easily. I fall asleep watching tv within 5-10 minutes. BOBO CLAUDIO Attn: Accounting[address] [place], [address], [facility] 06/06/2023 14:29:37 07/18/2023 text/html Sleep ProblemsRe ported bypatient.General Sleep:snoring;sleep apnea;witnessed apnea;unrefreshing sleep;excessive sleepiness during the day (daytime somnolence) Onset/Timing:chronic Severity:severe Quality:loud snoring;gasping for air Prescribed sleep medications:not taking medication to help sleep CPAP:does not have a machiene and needs one Octaviana presents for ER f/u on depression, Sleep apnea She has been unable to fill her trulicity all month due to shortage. She feels she is gaining weight and open to try ozempic. She has not taken farxiga since last month. She stopped taking prozac last month. Also not taking her lisinopril. She c/o of wheezing now. does continue to smoke. she also has sob that she attributes to weight gain. sleep study completed last week. results are not in yet. She went to urgent care for painful boil and she completed bactrim and clinda BOBO CLAUDIO Attn: Accounting[address] [place], [address], [facility] 07/19/2023 11:16:50 09/04/2023 text/html Claudia mcdonnell ts for f/u with nieces She has not taken farxiga since last month. She stopped taking prozac last month. Also not taking her lisinopril. She c/o of wheezing now. does continue to smoke. she also has sob that she attributes to weight gain. BOBO CLAUDIO Attn: Accounting[address] [facility], [place], [address], [facility] 09/12/2023 10:18:29 01/16/2024 text/html Claudia mcdonnell ts for f/u for DM She has not taken farxiga since last month. She stopped taking prozac last month. Also not taking her lisinopril. needs refills. Went to hospital for another penumonia and was placed back on metformin. She has been taking it. she does not check BG at home.does continue to smoke. wellbutrin from hospital did not help with smoking. she stopped it. BOBO CLAUDIO Attn: Accounting[address] [facility], [place], [address], [facility] 01/16/2024 15:10:55 OBGyn Episode No OBEpisode recorded.
--- OUTSIDE RECORDS SUMMARY | 2024-03-14 21:54 | XMS_ITS | Continuity of Care Document ---
Author Organization [facility] Address [address] [facility] [address] [place] [address] Phone Care Team Providers Care Career Development Consultant Name Role Phone Unavailable Unavailable Unavailable Advance Directives Directive Yes / No Effective Date File Name No Information Encounters Encounter Description Practice Location Reason(s) For Visit Diagnoses Date Provider Providers Copied on Encounter [facility], [address], [place], [place], [id number], [place] tel:[phone] [facility] No Information 0 No Information Family [...]
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
== END 2024-03-14 16:14 | disposition home or self-care (01) ==
LOC: ANHED 08:48 → ANH3MEDSUR 13:43
PROVIDERS: Student in an Organized Health Care Education/Training Program; Admitting Provider Internal Medicine; Emergency Provider Emergency Medicine; PCP Physician Assistant; Visit Provider Hospitalist
DX: J10.1 Influenza due to other identified influenza virus with other respiratory manifestations (principal); J96.01 Acute respiratory failure with hypoxia; J45.909 Unspecified asthma, uncomplicated; E11.65 Type 2 diabetes mellitus with hyperglycemia; F17.210 Nicotine dependence, cigarettes, uncomplicated; I11.0 Hypertensive heart disease with heart failure; I50.32 Chronic diastolic (congestive) heart failure; G47.33 Obstructive sleep apnea (adult) (pediatric); E66.01 Morbid (severe) obesity due to excess calories; F41.9 Anxiety disorder, unspecified; K21.9 Gastro-esophageal reflux disease without esophagitis; E03.9 Hypothyroidism, unspecified; F32.A Depression, unspecified; Z20.822 Contact with and (suspected) exposure to COVID-19; Z79.51 Long term (current) use of inhaled steroids; Z79.84 Long term (current) use of oral hypoglycemic drugs
CPT/HCPCS: 36415; 71045; 80048; 80053; 82948; 83880; 85025; 87637; 93005; 94618; 94640; 96361; 96374; 99285; A9270; G0378; G0379; J1885; J7030

== ENCOUNTER 2024-12-23 16:50 | Emergency (ER) | payer OTHER, SELFPAY ==
--- OUTSIDE RECORDS SUMMARY | 1999-07-08 03:30 | XMS_ITS | Continuity of Care Document ---
Author Organization [facility] Address [address] [place] [address] Phone Care Team Providers Care Affirmative Action Specialist Name Role Phone Unavailable Unavailable Unavailable Advance Directives Directive Yes / No Effective Date File Name No Information Encounters Encounter Description Practice Location Reason(s) For Visit Diagnoses Date Provider Providers Copied on Encounter [facility], [address], [place], [place], [id number], [place] tel:[phone] [facility] No Information 0 No Information Family History Family Member Type Diagnosis Age At Onset No Information Payers Payer name Insurance type Covered republican ID Authoriza tion(s) No Information Social History Type Description Quantity Date Captured Comments Sex Female Smoking Status No Information Chief Complaint And Reason For Visit No Information Reason For Referral Reason For Referral No Information History Of Present Illness Encounter Date Complaint History Of Prese nt Illness No Information Functional Status Date Functional Assessmen t No Information Instructions Date Instruction Additional Infor mation No Information Assessments Type Assessment Date No Information Patient Care Teams Name Effective Dates (start - stop) Status Members No Information
--- NOTE | ~2024-12-23 | XR_ITS ---
EXAMINATION: XR chest 2V 12/23/2024 19:42 INDICATION: Chest pain PROCEDURE: 2 view chest COMPARISON: Comparison to multiple prior studies sequentially, with oldest reviewed study dated 08/01/2022. FINDINGS: The lungs are clear. The cardiomediastinal silhouette is within normal limits. There are no pleural effusions. There is no pneumothorax suspected. IMPRESSION: 1: NO ACUTE CARDIOPULMONARY DISEASE. Reviewed, dictated and finalized at location O. OR PRODUCER
[2024-12-23 16:56] VITALS: BP 151/83; PULSE 78; RESP 20; TEMP 36.2; O2SAT 100
--- NOTE | 2024-12-23 17:00 | ECG_ITS ---
Test Date: 2024-12-23 17:03:02 Measurements Intervals [place] Rate: 75 P: 53 UT: 136 QRS: 11 QRSD: 104 T: 53 QT: 402 QTc: 451 Interpretive Statements SINUS RHYTHM Electronically Signed On 12-23-2024 18:46:26 TOOL RENTAL TECHNICIAN by Merna Davis M.D.
[2024-12-23 17:21] VITALS: PULSE 78
--- NOTE | 2024-12-23 17:22 | ED.SOB ---
HPI - SOB/Dyspnea General Chief Complaint: Shortness of Breath/Dyspnea <Sheri Silvestre MD - Last Filed: 12/23/24 19:10> Stated Complaint: SOB x 3 weeks <Sheri Silvestre MD - Last Filed: 12/23/24 19:10> Time Seen by Provider: 12/23/24 17:10 <Sheri Silvestre MD - Last Filed: 12/23/24 19:10> History of Present Illness HPI Narrative: Patient with history of asthma, morbid obesity with WILLIE, presents here with chest pain and shortness of breath has been worsening for last few to the point where she is short of breath sometimes even when she is sitting up. Does not feel like her usual asthma exacerbation <Sheri Silvestre MD - Last Filed: 12/23/24 19:10> Related Data Home Medications: Home Medications ?Medication ?Instructions ?Recorded ?Confirmed ?Last Taken ?Type dapagliflozin propanediol 10 mg 10 mg PO DAILY 02/24/21 03/13/24 07/22/23 History tablet (Farxiga) fluoxetine 20 mg capsule 20 mg PO DAILY 11/17/23 03/13/24 07/22/23 History <Sehri Silvestre MD - Last Filed: 12/23/24 19:10> Allergies/Adverse Reactions: Allergies Allergy/AdvReac Type Severity Reaction Status Date / Time amoxicillin Allergy Unknown RASH, Verified 12/23/24 16:51 DIFFICULTY BREATHING <Sheri Silvestre MD - Last Filed: 12/23/24 19:10> Review of Systems Review of Systems: All systems reviewed & are unremarkable except as noted in HPI and below <Sheri Silvestre MD - Last Filed: 12/23/24 19:10> [facility] Past Medical History Medical History: Medical History (Updated 12/24/24 @ 00:01 by Nelson Reynolds) Diastolic heart failure Echo, 11/17/2023: estimated EF greater than 70%, grade 2 diastolic dysfunction. Amenorrhea secondary to weight Tobacco dependence Anxiety Obstructive sleep apnea Hypertension Gastroesophageal reflux disease Hypothyroidism Type 2 diabetes mellitus Depression Asthma Influenza (03/2019) Complicated by post influenza pneumonia requiring intubation and transfer to tertiary care facility for ECMO. <Sheri Silvestre MD - Last Filed: 12/23/24 19:10> Surgical History Surgical History: Surgical History No history of previous surgery <Sheri Silvestre MD - Last Filed: 12/23/24 19:10> Family History Family History: Family History Mother Diabetes mellitus Asthma Hypertension Thyroid disorder Grandparent Cancer Diabetes mellitus <Sheri Silvestre MD - Last Filed: 12/23/24 19:10> Social History Social History: Social History Social History: Surrogate decision maker: Cindy Delgado, mother. Code status: Full code. Smoking packs per day: 0.5 Smoking cigarettes per day: 10.0 Years smoked: 18 Smoking pack-years: 9.00 Smoking status: Current every day smoker Tobacco type: cigarettes Additional smoking assessment comments: 1 pack of cigarettes a day for over 10 years. Alcohol intake: current Drinks per week: 6 Alcohol use details: Occasional alcohol use in moderation. Substance use: never Substance use type: does not use Do You Feel Safe in your Home?: Yes Lack of Transportation: YES Lack of Food: Never True Current Housing: I Have Housing Concerned About Future Housing: No Difficulty Paying Gas/Electric Bills: No Difficulty Paying for Meds: No Currently Unemployed: No Education: High School Diploma/GED Difficulty w/ Childcare or Family Care: No Living arrangements: with family Additional living arrangements comments: The patient lives in [place] with her mother. Additional occupation/education comments: Unemployed. Spiritual care concerns: No <Sheri Silvestre MD - Last Filed: 12/23/24 19:10> Exam Narrative: EXAMINATION OF ORGAN SYSTEMS/BODY AREAS: Constitutional: Vital signs per nursing GENERAL: Slightly tearful and anxious HEAD: Normal with no signs of head trauma. EYES: EOMI, conjunctiva normal ENT: Hearing grossly intact LUNGS: Nonlabored breathing. Clear to auscultation bilaterally HEART: [Regular rate and rhythm] ABD: [Soft], [nontender to palpation] EXT: Normal range of motion SKIN: [No rashes or lesions.] NEURO: [Alert and oriented x 3. No gross focal sensory or strength deficits.] PSYCH: Anxious and tearful affect <Sheri Silvestre MD - Last Filed: 12/23/24 19:10> Course Course Emergency Course: Patient care signed over by previous provider pending completion of workup. patient's labs and imaging reviewed. D-dimer is negative. Troponin negative. EKG and chest x-ray unremarkable. Laboratory studies within normal limits. [place] better after breathing treatments Toradol and anxiolysis. Has presented similarly in the past. Safe for discharge home with unremarkable workup and follow-up with her primary care provider and return precautions. <Jesus Quintana MD - Last Filed: 12/24/24 06:22> Vital Signs Vital signs: Vital Signs Temperature 36.2 C L 12/23/24 16:56 Pulse Rate 78 12/23/24 16:56 Respiratory Rate 20 12/23/24 16:56 Blood Pressure 151/83 H 12/23/24 16:56 Pulse Oximetry 100 12/23/24 16:56 Oxygen Delivery Room Air 12/23/24 16:56 Temperature 36.2 C L 12/23/24 16:56 Pulse Rate 81 12/23/24 17:46 Respiratory Rate 25 H 12/23/24 17:46 Blood Pressure 151/83 H 12/23/24 16:56 Pulse Oximetry 100 12/23/24 16:56 Oxygen Delivery Room Air 12/23/24 17:19 <Sheri Silvestre MD - Last Filed: 12/23/24 19:10> Vital Signs Temperature 36.2 C L 12/23/24 16:56 Pulse Rate 78 12/23/24 16:56 Respiratory Rate 20 12/23/24 16:56 Blood Pressure 151/83 H 12/23/24 16:56 Pulse Oximetry 100 12/23/24 16:56 Oxygen Delivery Room Air 12/23/24 16:56 Temperature 36.2 C L 12/23/24 16:56 Pulse Rate 81 12/23/24 17:46 Respiratory Rate 25 H 12/23/24 17:46 Blood Pressure 151/83 H 12/23/24 16:56 Pulse Oximetry 100 12/23/24 16:56 Oxygen Delivery Room Air 12/23/24 17:19 <Jesus Quintana MD - Last Filed: 12/24/24 06:22> MDM - SOB/Dyspnea MDM Narrative Medical decision making narrative: ED COURSE AND MEDICAL DECISION MAKIN-year-old female presenting with chest pain and shortness of breath. She is quite tearful and anxious on my evaluation otherwise lungs are clear, vital signs normal. EKG done in triage negative for acute ischemic changes. Cardiac workup is initiated. EKG: Performed in triage and interpreted by me. Normal sinus rhythm. Rate [75]. Normal axis. MS normal. QRS duration normal. QTc normal. No pathologic Q waves. No ST segment elevation or depression to suggest acute ischemia. No RV strain pattern. HEART score is 0 with no acute ischemic changes on EKG and negative troponin making ACS unlikely. Wells low risk with negative PERC making PE unlikely. Presentation not consistent with dissection or aneurysm without radiation of pain or pulse deficits. CXR negative for mediastinal widening. No abdominal pain or signs of sepsis that would be concerning for esophageal perforation or mediastinitis. No cardiomegaly or JVD to suggest pericardial effusion/tamponade. At this time I did try some breathing treatments, her labs are normal, however on re-evaluation, she is now crying and reporting that the pain is still persistent. Her heart rate is now above 100 and I can no longer PERC her out. I will order some Toradol, a small dose of benzodiazepine given my concern that there may be some anxiety associated with her symptoms, and I did obtain a D-dimer with the understanding that she will not be able to fit our CT scanner.. Signed out to oncoming ER physician. <Sheri Silvestre MD - Last Filed: 12/23/24 19:10> Lab Data Result diagrams: 12/23/24 17:46 12/23/24 17:46 <Sheri Silvestre MD - Last Filed: 12/23/24 19:10> Labs: Lab Results 12/23/24 12/23/24 12/23/24 Range/Units 17:46 17:46 17:46 WBC 9.1 (4.5-10.0) K/mm3 RBC 4.45 (4.2-5.4) M/mm3 Hgb 12.0 (12.0-15.0) g/dL Hct 37.7 (37.0-47.0) % MCV 84.7 (80-100) fl MCH 27.0 (26-34) pg MCHC 31.8 L (32-36) g/dl RDW 14.2 (11.5-14.5) % Plt Count 315 (150-375) k/mm3 MPV 11.3 H (7.4-10.4) fl Immature Gran % (Auto) 1.8 H (0-0.5) % Neut % (Auto) 70.8 (45.5-73.1) % Lymph % (Auto) 20.2 (18.3-44.2) % Dixon % (Auto) 4.5 (2.6-8.5) % Eos % (Auto) 2.2 (0-4.4) % Baso % (Auto) 0.5 (0.2-1.2) % Lymph # (Auto) 1.84 (0.9-3.2) K/mm3 Dixon # (Auto) 0.4 (0.1-0.6) K/mm3 Eos # (Auto) 0.2 (0-0.3) K/mm3 Baso # (Auto) 0.1 (0.0-0.1) K/mm3 Abs Immat Gran (auto) 0.16 H (0.00-0.031) K/mm3 Absolute Neuts (auto) 6.5 (1.3-6.7) K/mm3 Absolute Nucleated RBC 0.000 (0.0-0.012) K/mm3 Nucleated RBC % 0.0 (0.0-0.2) % D-Dimer 0.28 (<0.48) ug/mL Sodium Cancelled 129 L Potassium Cancelled 4.1 Chloride Cancelled Carbon Dioxide Anion Gap BUN Creatinine Estim Creat Clear Calc Estimated GFR Glucose Calcium Total Bilirubin AST ALT Alkaline Phosphatase Troponin I (0.000-0.034) ng/mL Total Protein Albumin 12/23/24 12/23/24 12/23/24 Range/Units 17:46 17:46 17:46 WBC (4.5-10.0) K/mm3 RBC (4.2-5.4) M/mm3 Hgb (12.0-15.0) g/dL Hct (37.0-47.0) % MCV (80-100) fl MCH (26-34) pg MCHC (32-36) g/dl RDW (11.5-14.5) % Plt Count (150-375) k/mm3 MPV (7.4-10.4) fl Immature Gran % (Auto) (0-0.5) % Neut % (Auto) (45.5-73.1) % Lymph % (Auto) (18.3-44.2) % Dixon % (Auto) (2.6-8.5) % Eos % (Auto) (0-4.4) % Baso % (Auto) (0.2-1.2) % Lymph # (Auto) (0.9-3.2) K/mm3 Dixon # (Auto) (0.1-0.6) K/mm3 Eos # (Auto) (0-0.3) K/mm3 Baso # (Auto) (0.0-0.1) K/mm3 Abs Immat Gran (auto) (0.00-0.031) K/mm3 Absolute Neuts (auto) (1.3-6.7) K/mm3 Absolute Nucleated RBC (0.0-0.012) K/mm3 Nucleated RBC % (0.0-0.2) % D-Dimer (<0.48) ug/mL Sodium Potassium Chloride 98 Carbon Dioxide Cancelled 25 Anion Gap Cancelled 6 BUN Cancelled Creatinine Estim Creat Clear Calc Estimated GFR Glucose Calcium Total Bilirubin AST ALT Alkaline Phosphatase Troponin I (0.000-0.034) ng/mL Total Protein Albumin 12/23/24 12/23/24 12/23/24 Range/Units 17:46 17:46 17:46 WBC (4.5-10.0) K/mm3 RBC (4.2-5.4) M/mm3 Hgb (12.0-15.0) g/dL Hct (37.0-47.0) % MCV (80-100) fl MCH (26-34) pg MCHC (32-36) g/dl RDW (11.5-14.5) % Plt Count (150-375) k/mm3 MPV (7.4-10.4) fl Immature Gran % (Auto) (0-0.5) % Neut % (Auto) (45.5-73.1) % Lymph % (Auto) (18.3-44.2) % Dixon % (Auto) (2.6-8.5) % Eos % (Auto) (0-4.4) % Baso % (Auto) (0.2-1.2) % Lymph # (Auto) (0.9-3.2) K/mm3 Dixon # (Auto) (0.1-0.6) K/mm3 Eos # (Auto) (0-0.3) K/mm3 Baso # (Auto) (0.0-0.1) K/mm3 Abs Immat Gran (auto) (0.00-0.031) K/mm3 Absolute Neuts (auto) (1.3-6.7) K/mm3 Absolute Nucleated RBC (0.0-0.012) K/mm3 Nucleated RBC % (0.0-0.2) % D-Dimer (<0.48) ug/mL Sodium Potassium Chloride Carbon Dioxide Anion Gap BUN 13 Creatinine Cancelled 0.55 L Estim Creat Clear Calc Cancelled Not Reportable Estimated GFR Cancelled Glucose Calcium Total Bilirubin AST ALT Alkaline Phosphatase Troponin I (0.000-0.034) ng/mL Total Protein Albumin 12/23/24 12/23/24 12/23/24 Range/Units 17:46 17:46 17:46 WBC (4.5-10.0) K/mm3 RBC (4.2-5.4) M/mm3 Hgb (12.0-15.0) g/dL Hct (37.0-47.0) % MCV (80-100) fl MCH (26-34) pg MCHC (32-36) g/dl RDW (11.5-14.5) % Plt Count (150-375) k/mm3 MPV (7.4-10.4) fl Immature Gran % (Auto) (0-0.5) % Neut % (Auto) (45.5-73.1) % Lymph % (Auto) (18.3-44.2) % Dixon % (Auto) (2.6-8.5) % Eos % (Auto) (0-4.4) % Baso % (Auto) (0.2-1.2) % Lymph # (Auto) (0.9-3.2) K/mm3 Dixon # (Auto) (0.1-0.6) K/mm3 Eos # (Auto) (0-0.3) K/mm3 Baso # (Auto) (0.0-0.1) K/mm3 Abs Immat Gran (auto) (0.00-0.031) K/mm3 Absolute Neuts (auto) (1.3-6.7) K/mm3 Absolute Nucleated RBC (0.0-0.012) K/mm3 Nucleated RBC % (0.0-0.2) % D-Dimer (<0.48) ug/mL Sodium Potassium Chloride Carbon Dioxide Anion Gap BUN Creatinine Estim Creat Clear Calc Estimated GFR > 60 Glucose Cancelled 346 H Calcium Cancelled 8.6 Total Bilirubin Cancelled AST ALT Alkaline Phosphatase Troponin I (0.000-0.034) ng/mL Total Protein Albumin 12/23/24 12/23/24 12/23/24 Range/Units 17:46 17:46 17:46 WBC (4.5-10.0) K/mm3 RBC (4.2-5.4) M/mm3 Hgb (12.0-15.0) g/dL Hct (37.0-47.0) % MCV (80-100) fl MCH (26-34) pg MCHC (32-36) g/dl RDW (11.5-14.5) % Plt Count (150-375) k/mm3 MPV (7.4-10.4) fl Immature Gran % (Auto) (0-0.5) % Neut % (Auto) (45.5-73.1) % Lymph % (Auto) (18.3-44.2) % Dixon % (Auto) (2.6-8.5) % Eos % (Auto) (0-4.4) % Baso % (Auto) (0.2-1.2) % Lymph # (Auto) (0.9-3.2) K/mm3 Dixon # (Auto) (0.1-0.6) K/mm3 Eos # (Auto) (0-0.3) K/mm3 Baso # (Auto) (0.0-0.1) K/mm3 Abs Immat Gran (auto) (0.00-0.031) K/mm3 Absolute Neuts (auto) (1.3-6.7) K/mm3 Absolute Nucleated RBC (0.0-0.012) K/mm3 Nucleated RBC % (0.0-0.2) % D-Dimer (<0.48) ug/mL Sodium Potassium Chloride Carbon Dioxide Anion Gap BUN Creatinine Estim Creat Clear Calc Estimated GFR Glucose Calcium Total Bilirubin 0.5 AST Cancelled 41 H ALT Cancelled 43 H Alkaline Phosphatase Cancelled Troponin I (0.000-0.034) ng/mL Total Protein Albumin 12/23/24 12/23/24 12/23/24 Range/Units 17:46 17:46 17:46 WBC (4.5-10.0) K/mm3 RBC (4.2-5.4) M/mm3 Hgb (12.0-15.0) g/dL Hct (37.0-47.0) % MCV (80-100) fl MCH (26-34) pg MCHC (32-36) g/dl RDW (11.5-14.5) % Plt Count (150-375) k/mm3 MPV (7.4-10.4) fl Immature Gran % (Auto) (0-0.5) % Neut % (Auto) (45.5-73.1) % Lymph % (Auto) (18.3-44.2) % Dixon % (Auto) (2.6-8.5) % Eos % (Auto) (0-4.4) % Baso % (Auto) (0.2-1.2) % Lymph # (Auto) (0.9-3.2) K/mm3 Dixon # (Auto) (0.1-0.6) K/mm3 Eos # (Auto) (0-0.3) K/mm3 Baso # (Auto) (0.0-0.1) K/mm3 Abs Immat Gran (auto) (0.00-0.031) K/mm3 Absolute Neuts (auto) (1.3-6.7) K/mm3 Absolute Nucleated RBC (0.0-0.012) K/mm3 Nucleated RBC % (0.0-0.2) % D-Dimer (<0.48) ug/mL Sodium Potassium Chloride Carbon Dioxide Anion Gap BUN Creatinine Estim Creat Clear Calc Estimated GFR Glucose Calcium Total Bilirubin AST ALT Alkaline Phosphatase 100 Troponin I < 0.012 (0.000-0.034) ng/mL Total Protein Cancelled 6.7 Albumin Cancelled 3.9 <Sheri Silvestre MD - Last Filed: 12/23/24 19:10> Lab Results 11/05/1412/23/24 12/23/24 Range/Units 17:46 17:46 17:46 WBC 9.1 (4.5-10.0) K/mm3 RBC 4.45 (4.2-5.4) M/mm3 Hgb 12.0 (12.0-15.0) g/dL Hct 37.7 (37.0-47.0) % MCV 84.7 (80-100) fl MCH 27.0 (26-34) pg MCHC 31.8 L (32-36) g/dl RDW 14.2 (11.5-14.5) % Plt Count 315 (150-375) k/mm3 MPV 11.3 H (7.4-10.4) fl Immature Gran % (Auto) 1.8 H (0-0.5) % Neut % (Auto) 70.8 (45.5-73.1) % Lymph % (Auto) 20.2 (18.3-44.2) % Dixon % (Auto) 4.5 (2.6-8.5) % Eos % (Auto) 2.2 (0-4.4) % Baso % (Auto) 0.5 (0.2-1.2) % Lymph # (Auto) 1.84 (0.9-3.2) K/mm3 Dixon # (Auto) 0.4 (0.1-0.6) K/mm3 Eos # (Auto) 0.2 (0-0.3) K/mm3 Baso # (Auto) 0.1 (0.0-0.1) K/mm3 Abs Immat Gran (auto) 0.16 H (0.00-0.031) K/mm3 Absolute Neuts (auto) 6.5 (1.3-6.7) K/mm3 Absolute Nucleated RBC 0.000 (0.0-0.012) K/mm3 Nucleated RBC % 0.0 (0.0-0.2) % D-Dimer 0.28 (<0.48) ug/mL Sodium Cancelled 129 L Potassium Cancelled 4.1 Chloride Cancelled Carbon Dioxide Anion Gap BUN Creatinine Estim Creat Clear Calc Estimated GFR Glucose Calcium Total Bilirubin AST ALT Alkaline Phosphatase Troponin I (0.000-0.034) ng/mL Total Protein Albumin 12/23/24 12/23/24 12/23/24 Range/Units 17:46 17:46 17:46 WBC (4.5-10.0) K/mm3 RBC (4.2-5.4) M/mm3 Hgb (12.0-15.0) g/dL Hct (37.0-47.0) % MCV (80-100) fl MCH (26-34) pg MCHC (32-36) g/dl RDW (11.5-14.5) % Plt Count (150-375) k/mm3 MPV (7.4-10.4) fl Immature Gran % (Auto) (0-0.5) % Neut % (Auto) (45.5-73.1) % Lymph % (Auto) (18.3-44.2) % Dixon % (Auto) (2.6-8.5) % Eos % (Auto) (0-4.4) % Baso % (Auto) (0.2-1.2) % Lymph # (Auto) (0.9-3.2) K/mm3 Dixon # (Auto) (0.1-0.6) K/mm3 Eos # (Auto) (0-0.3) K/mm3 Baso # (Auto) (0.0-0.1) K/mm3 Abs Immat Gran (auto) (0.00-0.031) K/mm3 Absolute Neuts (auto) (1.3-6.7) K/mm3 Absolute Nucleated RBC (0.0-0.012) K/mm3 Nucleated RBC % (0.0-0.2) % D-Dimer (<0.48) ug/mL Sodium Potassium Chloride 98 Carbon Dioxide Cancelled 25 Anion Gap Cancelled 6 BUN Cancelled Creatinine Estim Creat Clear Calc Estimated GFR Glucose Calcium Total Bilirubin AST ALT Alkaline Phosphatase Troponin I (0.000-0.034) ng/mL Total Protein Albumin 12/23/24 12/23/24 12/23/24 Range/Units 17:46 17:46 17:46 WBC (4.5-10.0) K/mm3 RBC (4.2-5.4) M/mm3 Hgb (12.0-15.0) g/dL Hct (37.0-47.0) % MCV (80-100) fl MCH (26-34) pg MCHC (32-36) g/dl RDW (11.5-14.5) % Plt Count (150-375) k/mm3 MPV (7.4-10.4) fl Immature Gran % (Auto) (0-0.5) % Neut % (Auto) (45.5-73.1) % Lymph % (Auto) (18.3-44.2) % Dixon % (Auto) (2.6-8.5) % Eos % (Auto) (0-4.4) % Baso % (Auto) (0.2-1.2) % Lymph # (Auto) (0.9-3.2) K/mm3 Dixon # (Auto) (0.1-0.6) K/mm3 Eos # (Auto) (0-0.3) K/mm3 Baso # (Auto) (0.0-0.1) K/mm3 Abs Immat Gran (auto) (0.00-0.031) K/mm3 Absolute Neuts (auto) (1.3-6.7) K/mm3 Absolute Nucleated RBC (0.0-0.012) K/mm3 Nucleated RBC % (0.0-0.2) % D-Dimer (<0.48) ug/mL Sodium Potassium Chloride Carbon Dioxide Anion Gap BUN 13 Creatinine Cancelled 0.55 L Estim Creat Clear Calc Cancelled Not Reportable Estimated GFR Cancelled Glucose Calcium Total Bilirubin AST ALT Alkaline Phosphatase Troponin I (0.000-0.034) ng/mL Total Protein Albumin 12/23/24 12/23/24 12/23/24 Range/Units 17:46 17:46 17:46 WBC (4.5-10.0) K/mm3 RBC (4.2-5.4) M/mm3 Hgb (12.0-15.0) g/dL Hct (37.0-47.0) % MCV (80-100) fl MCH (26-34) pg MCHC (32-36) g/dl RDW (11.5-14.5) % Plt Count (150-375) k/mm3 MPV (7.4-10.4) fl Immature Gran % (Auto) (0-0.5) % Neut % (Auto) (45.5-73.1) % Lymph % (Auto) (18.3-44.2) % Dixon % (Auto) (2.6-8.5) % Eos % (Auto) (0-4.4) % Baso % (Auto) (0.2-1.2) % Lymph # (Auto) (0.9-3.2) K/mm3 Dixon # (Auto) (0.1-0.6) K/mm3 Eos # (Auto) (0-0.3) K/mm3 Baso # (Auto) (0.0-0.1) K/mm3 Abs Immat Gran (auto) (0.00-0.031) K/mm3 Absolute Neuts (auto) (1.3-6.7) K/mm3 Absolute Nucleated RBC (0.0-0.012) K/mm3 Nucleated RBC % (0.0-0.2) % D-Dimer (<0.48) ug/mL Sodium Potassium Chloride Carbon Dioxide Anion Gap BUN Creatinine Estim Creat Clear Calc Estimated GFR > 60 Glucose Cancelled 346 H Calcium Cancelled 8.6 Total Bilirubin Cancelled AST ALT Alkaline Phosphatase Troponin I (0.000-0.034) ng/mL Total Protein Albumin 12/23/24 12/23/24 12/23/24 Range/Units 17:46 17:46 17:46 WBC (4.5-10.0) K/mm3 RBC (4.2-5.4) M/mm3 Hgb (12.0-15.0) g/dL Hct (37.0-47.0) % MCV (80-100) fl MCH (26-34) pg MCHC (32-36) g/dl RDW (11.5-14.5) % Plt Count (150-375) k/mm3 MPV (7.4-10.4) fl Immature Gran % (Auto) (0-0.5) % Neut % (Auto) (45.5-73.1) % Lymph % (Auto) (18.3-44.2) % Dixon % (Auto) (2.6-8.5) % Eos % (Auto) (0-4.4) % Baso % (Auto) (0.2-1.2) % Lymph # (Auto) (0.9-3.2) K/mm3 Dixon # (Auto) (0.1-0.6) K/mm3 Eos # (Auto) (0-0.3) K/mm3 Baso # (Auto) (0.0-0.1) K/mm3 Abs Immat Gran (auto) (0.00-0.031) K/mm3 Absolute Neuts (auto) (1.3-6.7) K/mm3 Absolute Nucleated RBC (0.0-0.012) K/mm3 Nucleated RBC % (0.0-0.2) % D-Dimer (<0.48) ug/mL Sodium Potassium Chloride Carbon Dioxide Anion Gap BUN Creatinine Estim Creat Clear Calc Estimated GFR Glucose Calcium Total Bilirubin 0.5 AST Cancelled 41 H ALT Cancelled 43 H Alkaline Phosphatase Cancelled Troponin I (0.000-0.034) ng/mL Total Protein Albumin 12/23/24 12/23/24 12/23/24 Range/Units 17:46 17:46 17:46 WBC (4.5-10.0) K/mm3 RBC (4.2-5.4) M/mm3 Hgb (12.0-15.0) g/dL Hct (37.0-47.0) % MCV (80-100) fl MCH (26-34) pg MCHC (32-36) g/dl RDW (11.5-14.5) % Plt Count (150-375) k/mm3 MPV (7.4-10.4) fl Immature Gran % (Auto) (0-0.5) % Neut % (Auto) (45.5-73.1) % Lymph % (Auto) (18.3-44.2) % Dixon % (Auto) (2.6-8.5) % Eos % (Auto) (0-4.4) % Baso % (Auto) (0.2-1.2) % Lymph # (Auto) (0.9-3.2) K/mm3 Dixon # (Auto) (0.1-0.6) K/mm3 Eos # (Auto) (0-0.3) K/mm3 Baso # (Auto) (0.0-0.1) K/mm3 Abs Immat Gran (auto) (0.00-0.031) K/mm3 Absolute Neuts (auto) (1.3-6.7) K/mm3 Absolute Nucleated RBC (0.0-0.012) K/mm3 Nucleated RBC % (0.0-0.2) % D-Dimer (<0.48) ug/mL Sodium Potassium Chloride Carbon Dioxide Anion Gap BUN Creatinine Estim Creat Clear Calc Estimated GFR Glucose Calcium Total Bilirubin AST ALT Alkaline Phosphatase 100 Troponin I < 0.012 (0.000-0.034) ng/mL Total Protein Cancelled 6.7 Albumin Cancelled 3.9 <Jesus Quintana MD - Last Filed: 12/24/24 06:22> Discharge Plan Discharge Clinical Impression: Chest pain Qualifiers: Chest pain type: unspecified Qualified Code(s): R07.9 - Chest pain, unspecified <Sheri Silvestre MD - Last Filed: 12/23/24 19:10> Patient Disposition: Home <Sheri Silvestre MD - Last Filed: 12/23/24 19:10> Condition: Stable <Sheri Silvestre MD - Last Filed: 12/23/24 19:10> Instructions: Chest Pain (ED), Shortness of Breath (ED) <Sheri Silvestre MD - Last Filed: 12/23/24 19:10> Additional Instructions: Laboratory studies are unremarkable. No signs of cardiac damage or blood clot. No signs of pneumonia or pneumothorax. Symptoms likely musculoskeletal in nature verses asthma versus anxiety. Please follow up with your doctor; you can always return for any further issues. <Sheri Silvestre MD - Last Filed: 12/23/24 19:10> Patient Language: Thai <Sheri Silvestre MD - Last Filed: 12/23/24 19:10> Prescriptions: No Action dapagliflozin propanediol [Farxiga] 10 mg tablet 10 mg PO DAILY (DME) Aerochamber Plus Z Stat Spacer See Rx Instructions .Route Qty: 1 0RF Rx Instructions: As directed fluoxetine 20 mg Capsule 20 mg PO DAILY benzonatate 100 mg Capsule 100 mg PO TID PRN (Reason: Cough) Qty: 14 0RF oseltamivir [Tamiflu] 75 mg Capsule 75 mg PO Q12HR Qty: 9 0RF Chloraseptic Sore Throat 6-10 mg Lozenge 1 yvonne PO PRN PRN (Reason: Sore Throat) Qty: 14 0RF naproxen 375 mg tablet 375 mg PO BID Qty: 14 0RF albuterol sulfate 90 mcg/actuation HFA aerosol inhaler 2 puff INHALATION QID PRN (Reason: shortness of breath or wheezing) Qty: 6.7 0RF <Sheri Silvestre MD - Last Filed: 12/23/24 19:10> Follow-up/Referrals: Apoorva,BOBO Luara [Primary Care Provider, Family Practice] <Sheri Silvestre MD - Last Filed: 12/23/24 19:10> Time of Disposition: 19:53 <Sheri Silvestre MD - Last Filed: 12/23/24 19:10> 19:53 <Jesus Quintana MD - Last Filed: 12/24/24 06:22> Quality HEART score for chest pain patients History: slightly suspicious <Jesus Quintana MD - Last Filed: 12/24/24 06:22> ECG: normal <Jesus Quintana MD - Last Filed: 12/24/24 06:22> Age: < or = to 45 years <Jseus Quintana MD - Last Filed: 12/24/24 06:22> Risk factors: 1 or 2 risk factors <Jesus Quintana MD - Last Filed: 12/24/24 06:22> Troponin: < or = to 1x normal limit <Jesus Quintana MD - Last Filed: 12/24/24 06:22> Heart score: 1 <Jesus Quintana MD - Last Filed: 12/24/24 06:22>
[2024-12-23] MEDS: IPRATROPIUM BR 0.02% INH SOLN 0.5 MG/2.5 ML VIAL 1 MG INHALATION (17:42)
[2024-12-23] MEDS: ALBUTEROL SULFATE NEB 2.5 MG/3 ML INH 10 MG INHALATION (17:42)
[2024-12-23 17:46] VITALS: PULSE 81; RESP 25
[2024-12-23] MEDS: MAGNESIUM SULF 2 GM/WATER 50ML 2 GM/50 ML BAG IVPB (18:02)
[2024-12-23 18:16] LABS: Hematocrit 37.7 % (37.0-47.0); Hemoglobin 12.0 g/dL (12.0-15.0); Immature Granulocyte Percent A 1.8 % (0-0.5); Lymphocytes Absolute Auto 1.84 K/mm3 (0.9-3.2); Mean Corpuscular HGB Conc 31.8 g/dl (32-36); Mean Corpuscular Hemoglobin 27.0 pg (26-34); Mean Corpuscular Volume 84.7 fl (80-100); Nucleated Red Blood Cells Absolute Auto 0.000 K/mm3 (0.0-0.012); Nucleated Red Blood Cells Perc 0.0 % (0.0-0.2); Platelet Count Result 315 k/mm3 (150-375); Red Blood Count 4.45 M/mm3 (4.2-5.4); White Blood Count 9.1 K/mm3 (4.5-10.0)
--- OUTSIDE RECORDS SUMMARY | 2024-12-23 18:27 | XMS_ITS | Clinical Summary ---
Author Organization [facility] Address [address] [place] [id number] Care Team Providers Care Immigration Inspector Name Role Phone Unavailable Primary Care Provider [...] of 3 - 19+ 3-dose series) 08/27/2011 HPV Vaccines (1 - 3-dose SCD M series) 08/27/2019 Cervical Cancer Screening Pa p with HPV Testing (Age 30 to 64) Every 5 Years 2022 Cervical Cancer Screening with HPV 2022 COVID-19 Vaccine ( - 2024-2 6 season) 2024 Influenza Adult (#1) 2024 Hepatitis A Vaccines Aged Out No long er eligible based on patient's age to complete this topic Meningococcal B Vaccine Aged Out No l onger eligible based on patient's age to complete this topic Meningococcal Vaccine Aged Out No tomás jayme eligible based on patient's age to complete this topic Pneumococcal Vaccine: Pediat rics (0 to 5 Years) and At-Risk Patients (6 to 49 Years) Aged Out No longer eligible b ased on patient's age to complete this topic RSV Immunizations Under 20 Months Aged Out No longer eligible based on patient's age to complete this topic
--- OUTSIDE RECORDS SUMMARY | 2024-12-23 18:27 | XMS_ITS | Data Portability ---
Author Organization [facility], [employer] Address [address] [address] Care Team Providers Care Clerk Telegraph Service Name Role Phone TAMMIE BRANDONBLANCATIFFANY Primary Care Provider [phone] Assessment Encounter Date Assessment Date Assessment LastModified [...] understanding . Follow up as noted below. [email or web address] Not available 05/26/2016 15:03:50 06/29/2016 06/29/2016 Patient presented for follow up. Studies ordered as below. Discussed plan with patient/careg iver, who expressed understanding . Follow up as noted below. [email or web address] Not available 06/29/2016 19:03:01 01/18/2017 01/18/2017 Patient presented for follow up. Studies ordered as below. Discussed plan with patient/careg iver, who expressed understanding . Follow up as noted below. [email or web address] Not available 01/18/2017 19:04:07 Plan of Treatment Reminders Order Date Submit Date Provider Last Modified By Organization Details Last Modified Time Details Appointments None recorded. Lab hsv (1+2) igg Ab, serum 2016 017 [email or web address], [address] [facility] [address], [place], [address], 7 09:12:40 hsv (1+2) igm Ab, serum 2016 017 [email or web address] [employer] [facility], [address], [place], [address], 7 09:12:41 urinalysis , dipstick 2016 017 [facility], [facility], [address] [place] [address] [address], [place], [address], 7 19:52:27 urinalysis complete, reflex culture 2016 017 [email or web address] [employer] [facility], [address], [place], [address], 7 09:12:40 lipid panel, serum 2016 017 [email or web address] [employer] [facility], [address], [place], [address], 7 09:21:32 HbA1c (hemoglobi n A1c), blood 2016 017 [facility], [address], [place], [address], 7 13:50:14 CMP, serum or plasma 2016 017 [email or web address] [employer], [address], [place], [address], 7 09:21:31 vitamin D, 25-hydroxy , total, serum 2016 017 [email or web address] [employer], [address], [place], [address], 7 09:21:31 TSH, serum or plasma 2016 017 [employer] [facility], [address], [place], [address], 7 09:21:32 CBC w/ auto diff 2016 017 [email or web address] [facility], [address], [place], [address], 7 17:28:15 CMP, serum or plasma 2016 017 [email or web address] [facility], [address], [place], [address], 7 17:28:15 HbA1c (hemoglobi n A1c), blood 2016 017 TERRI [facility], [address], [place], [address], 7 19:37:16 lipid panel w/ direct LDL, serum 2016 017 [email or web address] [facility], [address], [place], [address], 7 17:28:15 microalbum in/creatin ine, ratio panel, urine 2016 017 [email or web address] [facility], [address], [place], [address], 7 17:28:15 TSH, serum or plasma 2016 017 [email or web address] [facility], [address], [place], [address], 7 17:28:15 Referral urologist referral 2016 017 Lacey Jade MD, [address], [address], [place], [address], 7 18:40:11 gastroente rologist referral 2016 017 [email or web address] Yoana Emery MD, [address], [place], [address], 7 10:11:13 diabetic ophthalmol ogy referral 2016 Ortega [email or web address] Kenji Bauman MD, [address] [facility] , [address], [place], [address], 7 10:11:[address] referral 2016 017 [email or web address] Not available 7 10:11:[address] referral 2016 017 [email or web address] Not available 7 08:49:52 physical therapist referral 2016 017 [email or web address] [facility], [address] , [address], [place], [address], 7 08:28:34 pain management referral 2016 017 [email or web address] [facility], [address], [place], [address], 7 08:28:35 Procedures None recorded. Surgeries None recorded. Imaging US, kidney 2016 017 [email or web address] Not available 7 17:39:22 US, abdomen - liver and GB 2016 017 [email or web address] Not available 7 09:20:19 electrocar diogram 2016 017 [facility], [address] [facility] , [address], [place], [address], 7 10:27:19 XR, chest, 2 view 2016 017 [email or web address] Not available 7 09:20:20 Medication Orders Singulair 10 mg tablet 2016 017 [facility] #[id number], [address], [place], [place], [id number], 7 19:36:28 betamethas one valerate 0.1 % topical cream 2016 017 [employer] [facility] [facility]75141, [address] [place], [place], [id number], 7 11:31:42 Cardizem CD 120 mg capsule,ex tended release 2016 [facility] #66587, [address] [place], [place], [id number], 7 13:50:14 lisinopril 5 mg tablet 2016 [facility] #28128, [address] [place], [place], [id number], 7 13:50:06 metformin ER 500 mg 24 hr tablet,ext ended release (gastric retention) 2016 [facility] #66032, [address] [place], [place], [id number], 7 13:50:05 Wellbutrin XL 150 mg 24 hr tablet, extended release 2016 [facility] #49283, [address] [place], [place], [id number], 7 13:50:06 Ventolin HFA 90 mcg/actuat ion aerosol inhaler 2016 [facility] #76387, [address] [place], [place], [id number], 7 13:50:04 ergocalcif flaco (vitamin D2) 1,250 mcg (50,000 unit) capsule 2016 [facility] #53674, [address] [place], [place], [id number], 7 13:50:05 Augmentin 875 mg-125 mg tablet 2016 017 [email or web address] [facility] #37304, [address] [place], [place], [id number], 7 19:34:51 lisinopril 5 mg tablet 2016 017 [facility], [address] [place], [place], [id number], 7 16:25:40 Cardizem CD 120 mg capsule,ex tended release 2016 017 [facility]56881, [address] [place], [place], [id number], 7 16:25:40 Patient TargetsNo targets recorded. Patient Instructions Encounter Date Encounter Id Patient Instructions Last Modified By Organization Details Last Modified Time 05/26/2016 [id number] back care and preventing injuries: care instructions TERRI Not available 05/28/2016 14:39:10 getting back to normal after low back pain: care instructions TERRI Not available 05/28/2016 14:39:11 learning about relief for back pain TERRI Not available 05/28/2016 14:39:11 When You Want to Lose Weight: Care Instructions TERRI Not available 05/28/2016 14:39:06 06/29/2016 [id number] controlling your asthma: care instructions TERRI Not available 07/01/2016 11:53:30 learning about asthma TERRI Not available 07/01/2016 11:53:30 When You Want to Lose Weight: Care Instructions TERRI Not available 07/01/2016 11:53:34 hypothyroidism: care instructions TERRI Not available 07/01/2016 11:53:34 12/07/2016 [id number] abdominal pain: care instructions TERRI Not available 12/10/2016 16:14:12 When You Want to Lose Weight: Care Instructions TERRI Not available 12/10/2016 16:13:52 controlling your asthma: care instructions TERRI Not available 12/10/2016 16:13:52 learning about asthma TERRI Not available 12/10/2016 16:13:53 pulmonary function test* [email or web address] Not available 12/07/2016 13:49:18 hypothyroidism: care instructions TERRI Not available 12/10/2016 16:13:43 Reason for Referral Referring Physician: Senthil Nicholas, Internal Medicine, Encounter Date: 05/26/2016 Pain Management Referral for Low back pain Referring Physician: Senthil Nicholas, Internal Medicine, Encounter Date: 05/26/2016 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 Referral for Sc reening for malignant neoplasm of cervix Referring Physician: Senthil Nicholas, Internal Medicine, Encounter Date: 06/29/2016 Referring Physician: Senthil Nicholas, Internal Medicine, Encounter Date: 12/07/2016 Diabetic Ophthalmology Refer ral for Diabetes mellitus Referring Physician: Senthil Nicholas, Internal Medicine, Encounter Date: 12/07/2016 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 Referral for Sc reening for malignant neoplasm of cervix Referring Physician: Senthil Nicholas, Internal Medicine, Encounter Date: 12/07/2016 Urologist Referral for Blood in urine Referring Physician: Ivonne Rivera, Internal Medicine, Encounter Date: 01/18/2017 Results Created Date Observation Date Name Description Value Unit Range Abnormal Flag Note LastModifiedBy Organization Detail LastModifiedTime 01/19/20 17 01/18/2017 urina lysis , dipst ick Leukocytes Trace Not Available [facility] [employer] [address], [place], [address], 01/18/2017 19:19:44 01/19/20 17 01/18/2017 urina lysis , dipst ick Nitrite negati ve Not Available [facility] [address], [place], [address], 01/18/2017 19:19:44 01/19/20 17 01/18/2017 urina lysis , dipst ick Urobilinogen .2 Not Available [facility] [employer] [place] [address], [place], [address], 01/18/2017 19:19:44 01/19/20 17 01/18/2017 urina lysis , dipst ick Protein 30 Not Available [address] [place], [place], [address], 01/18/2017 19:19:44 01/19/20 17 01/18/2017 urina lysis , dipst ick pH 5.0 Not Available [address] [place], [place], [address], 01/18/2017 19:19:44 01/19/20 17 01/18/2017 urina lysis , dipst ick Blood Large Not Available [address] [place], [place], [address], 01/18/2017 19:19:44 01/19/20 17 01/18/2017 urina lysis , dipst ick Specific Yoder 1.015 Not Available [address] [place], [place], [address], 01/18/2017 19:19:44 01/19/20 17 01/18/2017 urina lysis , dipst ick Ketone Negati ve Not Available [address] [place], [place], [address], 01/18/2017 19:19:44 01/19/20 17 01/18/2017 urina lysis , dipst ick Bilirubin Negati ve Not Available [place] [address], [place], [address], 01/18/2017 19:19:44 01/19/20 17 01/18/2017 urina lysis , dipst ick Glucose Negati ve Not Available [place] [address], [place], [address], 01/18/2017 19:19:44 01/19/20 17 01/18/2017 urina lysis , dipst ick Appearance Turbid Not Available [address], [place], [address], 01/18/2017 19:19:44 01/19/20 17 01/18/2017 urina lysis , dipst ick Color Dark Yellow Not Available [address], [place], [address], 01/18/2017 19:19:44 12/08/19 17 12/07/2016 pulmo nary funct ion test* pre fev1 Not Available [address], [place], [address], 12/07/2016 13:48:16 12/08/19 17 12/07/2016 pulmo nary funct ion test* post fev1 Not Available [address], [place], [address], 12/07/2016 13:48:16 12/08/19 17 12/07/2016 pulmo nary funct ion test* fev1 Not Available [address] [place], [place], [address], 12/07/2016 13:48:16 12/08/19 17 12/07/2016 pulmo nary funct ion test* pre fef Not Available [address], [place], [address], 12/07/2016 13:48:16 12/08/19 17 12/07/2016 pulmo nary funct ion test* post fef Not Available [address], [place], [address], 12/07/2016 13:48:16 12/08/19 17 12/07/2016 pulmo nary funct ion test* fef Not Available [address], [place], [address], 12/07/2016 13:48:16 12/09/19 17 12/07/2016 pulmo nary funct ion test* No observ ation record ed. [address], [place], [address], 12/08/2016 10:25:37 12/09/19 17 12/07/2016 elect dawit diogr am No observ ation record ed. [address], [place], [address], 12/08/2016 10:27:56 12/20/19 17 12/06/2016 CT, abdom en + pelvi s, w/ contr ast No observ ation record ed. [facility] Not Available 2016 22:55:16 05/23/19 18 05/22/2017 XR, lumba r spine No observ ation record ed. [facility] Not Available 2017 12:42:20 05/23/19 18 05/22/2017 XR, hip, unila teral No observ ation record ed. [email or web address] Not Available 2017 12:09:49 05/24/19 18 05/23/2017 XR, abdom en No observ ation record ed. [facility] Not Available 2017 12:44:12 10/06/19 18 10/01/2017 XR, chest , 2 view No observ ation record ed. [email or web address] Not Available 2017 10:22:45 12/14/19 18 12/13/2017 XR, foot, 2 view No observ ation record ed. [address], [place], [address], 12/14/2017 16:25:36 12/14/19 18 12/13/2017 XR, ankle , 2 view No observ ation record ed. [facility] ([facility]) [address] [facility] [address], [place], [address], 12/14/2017 16:25:36 04/10/19 20 04/10/2019 XR, chest , 2 view No observ ation record ed. [address] [facility] [address], [place], [address], 04/11/2019 12:19:00 04/16/19 20 04/11/2019 XR, chest [...] Address Organization Details Recorded Time Diabetes mellitus 27717013 Active Jess gregory [facility] 6 16:44:08 Benign hypertension 85878032 [facility] 16:44:16 Hypothyroidis m 90759504 Active Jess gregory, [facility] 6 16:44:23 Intellectual functioning disability 524284634 [facility] 16:44:33 Non-organic sleep disorder 313294156 [facility] 16:44:43 Morbid obesity 059909113 [facility] 6 16:44:51 Vitamin D deficiency 54750877 Active 2015 Senthil Nicholas MD [address], [place], [address] , [facility] 6 18:38:22 Asthma 922642301 Active 2016 Senthil Nicholas MD [address], [place], [address] , [facility] 7 18:29:30 Problem Notes None recorded. Medical Equipment None Reported. [...] propionate 50 mcg/actuati on nasal spray,suspe nsion Holt 1 spray every day by intranasa l [...] Body weight Body mass index (BMI) Systolic And Diastolic Provider Name and Address Organization Details Last Updated DateTime 7 149.86 cm 101 /min 18 /min 98.9 [degF] 249953. 67 g 98.8 kg/m2 189/76 mm[Hg] Zaida Nelson [facility] 7 18:48:10 Date Recorded Body height Body weight Body mass index (BMI) Respiratory rate Body temperature Heart rate Systolic And Diastolic Provider Name and Address Organization Details Last Updated DateTime 7 149.86 cm 159865. 08 g 98.6 kg/m2 18 /min 98.2 [degF] 92 /min 180/114 mm[Hg] Jess Vazquez [facility] 7 15:06:18 Date Recorded Body height Body weight Body mass index (BMI) Respiratory rate Body temperature Heart rate Systolic And Diastolic Provider Name and Address Organization Details Last Updated DateTime 7 149.86 cm 187542. 71 g 97.8 kg/m2 18 /min 97.8 [degF] 84 /min 166/90 mm[Hg] Jess Vazquez [facility] 7 19:06:05 Date Recorded Body height Body mass index (BMI) Body weight Respiratory rate Heart rate Systolic And Diastolic Provider Name and Address Organization Details Last Updated DateTime 149.86 cm 99.6 kg/m2 157983. 04 g 18 /min 98 /min 152/99 mm[Hg] Jess Vazquez [facility] 13:12:04 Date Recorded Body height Body mass index (BMI) Body weight Body temperature Heart rate Respiratory rate Systolic And Diastolic Provider Name and Address Organization Details Last Updated DateTime 149.86 cm 100.4 kg/m2 739331. 41 g 98 [degF] 96 /min 20 /min 152/97 mm[Hg] Danis Gonzalez [facility] 19:17:17 Social History Question Answer Notes LastModified by Organizat ion Details LastModified Time Tobacco Smoking Status Former Smoker Jess Vazquez [facility] 07/15/2015 16:43:24 Live Alone Or With Others? With Others [email or web address] Information not available 07/15/2015 Marital Status Single [email or web address] Informatio n not available 07/15/2015 What Was The Date Of Your Most Recent Tobacco Screening? 12/07/2016 Information n ot available 09/12/2018 Sex: Unknown Functional Status Question Answer Note LastModified by Organization D etails LastModified Time What is your level of alcohol consumption? None [email or web address] Information not available 07/15/2015 Mental Status None recorded. Family History Relationship Description Onset Age of this Age Resolved Age Notes LastModified by Organization Details LastModified Time Mother Essential hypertension [email or web address] Not available 16:43:51 Mother Disorder of thyroid gland Not available 2015 16:43:58 Medical History Condition Response Coronary Artery Disease N Other N Gout N Kidney Stones N Blood Diseases N Hyperthyroidism N Breast Cancer N Blood Transfusion N COPD N Depression N Lung Disease N Hypothyroidism N Defects or Inherited Disease N Developmental or Behavioral Disorders N Breast Problem N Difficulty Swallowing N Anesthesia Complications N Meniere's disease N Anxiety Disorder N Muscle, Joint, or Bone Problems N Obesity N Vision or Eye Problems N Arthritis N Polyps N Infertility N Mental Disorder N Cancer N Varicosities N Stroke N Endometriosis N Bladder or Kidney Problems [...] split virus, quadrivalent, preservative 6 completed Senthil Nicholas MD [address] [facility] [address] [facility] [address] 12/31/2015 16:18:30 Past Encounters Encounter ID Performer Location Encounter Start Date Encounter Closed Date Diagnosis/Indication Diagnosis SNOMED-CT Code Diagnosis ICD10 Code Diagnosis IMO Codes Diagnosis Note [id number] Senthil Nicholas MD [facility], [facility] [address] [facility] [address] [place] [address] 07/15/2015 17:32:47 07/15/2015 19:16:42 Vitamin D deficiency 49092107 E55.9 Benign hypertension 1072 5009 I10 Intellectu al functioning disability 287707928 F79 Morbid obesity 255211456 E66.01 Non-organi c sleep disorder 535175756 F51.9 Hypothyroidism 93533568 E03.9 Diabetes mellitus 692914 09 E11.9 Nausea and vomiting 1693 1999 R11.2 Allergic rhinitis 821220 04 J30.1 Active or passive immunization 122083795 Z23 [id number] Senthil Nicholas MD [place] [employer], [place] [address] [address] [address] 08/17/2015 15:56:45 08/17/2015 16:51:53 Costal chondritis 23993594 M94.0 better with OTC NSAIDS Benign hypertension 1072 5009 I10 BP 2 weeks Diabetes mellitus 404957 09 E11.9 Active or passive immunization 588398797 Z23 [id number] Senthil Nicholas MD [place] [employer] [facility] [facility], [place] [address] [address] [address] 10/21/2015 17:47:20 10/21/2015 18:22:58 Diabetes mellitus 44143867 E11.9 Hypothyroidism 81075596 E03.9 Morbid obesity 608743750 E66.01 Benign hypertension 1072 5009 I10 BP 2 weeks Vitamin D deficiency 347 34117 E55.9 Obstructiv e sleep apnea of adult 5249123114 103 G47.33 Eruption 650720131 R21 Screening for malignant neoplasm of cervix 683846299 Z12.4 Active or passive immunization 411411251 Z23 [id number] Senthil Nicholas MD [place] [facility] [facility], [place] [address] [address] [address] 12/31/2015 16:09:29 12/31/2015 16:30:00 Hypothyroidism 87537338 E03.9 Vitamin D deficiency 347 26253 E55.9 Morbid obesity 582280124 E66.01 Allergic rhinitis 851492 04 J30.1 [id number] Senthil Nicholas MD [facility], [place] [address] [address] [address] 01/25/2016 17:37:58 01/25/2016 18:35:09 Dysfunction of eustachian tube 90751500 H69.93 Vitamin D deficiency 347 27137 E55.9 Benign hypertension 1072 5009 I10 Diabetes mellitus 065405 09 E11.9 Hypothyroidism 81712510 E03.9 Allergic rhinitis 247441 04 J30.1 Screening for malignant neoplasm of cervix 558697401 Z12.4 [id number] Senthil Nicholas MD [place] [facility], [address] [place] [address] 02/25/2016 12:00:10 02/25/2016 13:01:34 Morbid obesity 172543790 E66.01 lost some , cont' diet and ^ activity Non-organi c sleep disorder 950772474 F51.9 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 I advised patient to take her levothyrox ine in the morning an hour prior to eating. She verbalized an understand ing Abnormal weight gain 161 160867 R63.5 [id number] Senthil Nicholas MD [facility], [address] [place] [address] 04/25/2016 18:35:24 04/25/2016 19:20:24 Low back pain 201425497 M54.5 Morbid obesity 353518553 E66.01 lost some , cont' diet and ^ activity [id number] Joann Lucero [facility], [address] ,[address] [place] [address] 05/16/2016 18:40:00 06/10/2019 18:56:14 [id number] Senthil Nicholas MD [facility], [address] [place] [address] 05/26/2016 14:53:16 05/26/2016 16:26:49 Benign hypertension 87821065 I10 BP 2 weeks Morbid obesity 245797204 E66.01 lost some , cont' diet and ^ activity Low back pain 260619632 M54.5 Pharyngitis 375918211 J0 2.9 [id number] Senthil Nicholas MD [facility], [place] [address] [facility] ,[address] [place] [address] 06/29/2016 19:00:33 06/29/2016 19:40:02 Morbid obesity 930947377 E66.01 lost some 4 LB , cont' diet and ^ activity Asthma 275354279 J45.90 9 Diabetes mellitus 848719 09 E11.9 Hypothyroidism 91128525 E03.9 Benign hypertension 1072 5009 I10 BP 2 weeks Active or passive immunization 937250013 Z23 Screening for malignant neoplasm of cervix 045216960 Z12.4 [id number] Senthil Nicholas MD [place] [facility], [address] [place] [address] 12/07/2016 12:27:28 12/07/2016 13:54:43 Abdominal pain 05679908 R10.[address] and lab result , Diabetes mellitus 045956 09 E11.69 Hypothyroidism 22224219 E03.9 Morbid obesity 309169681 E66.01 Noncomplia nce with medication regimen 177083998 Z91.14 education Benign hypertension 1072 5009 I10 BP 2 weeks Asthma 044601574 J45.90 9 Vitamin D deficiency 347 68873 E55.9 Screening for malignant neoplasm of cervix 377945815 Z12.4 Mixed anxi ety and depressive disorder 416530417 F41.8 Cholesterol screening 27 5077239 Z13.220 [id number] IVONNE RIVERA APN [facility], [address] [place] [address] 01/18/2017 18:51:18 01/18/2017 19:54:46 Allergic reaction 334247416 T78.40XD ED follow up following redness and swelling that occurred to bilateral hands and back of neck.no new detergents , soaps, lotions,re solved at this time Acute urin skyla tract infection 903008316 N39.0 Bactrim is continuedp t reports hematuria after starting ABX Blood in urine 10201947 R31.9 Herpes simplex 66812352 B00.9 Health Concerns Section Related Observation LastModified by Organization Detai ls LastModified Time None Recorded Concern Status LastModified by Organization Details LastModified Time None Recorded Advance Directives Directive None Recorded Payers Insurance Date Sequence Insurance Name Policy Number Policy Rothman Covered Member ID Rothman Member ID Guarantor Name 05/14/2019 1 [place] [employer] - PATHWAY X (PPO) [id number] [facility] Delgado [id number] [facility] Notes Date Note Type Note Provider Name and Address Organization Details Recorded Time 05/16/2016 text/html Patient not seen, 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 06/10/2019 18:56:13 05/26/2016 text/html Hypertension F/UReported by PatientHPIFor medications, patient reportstaking medications as directedandno side effects from medication. For lifestyle, patient reportsregular exercise,limiting/av oiding salt, andcompliant with low salt diet. For associated symptoms, patient reportsno dizziness,no lightheadedness,no chest pain,no shortness of breath,no palpitations,no edema,no calf pain with exertion, andno headache. MD Amanda Duran [address], [facility] [address], [facility] 05/26/2016 16:25:56 06/29/2016 text/html Hypertension F/UReported by PatientHPIFor medications, patient reportstaking medications as directedandno side effects from medication. For lifestyle, patient reportsregular exercise,limiting/av oiding salt, andcompliant with low salt diet. For associated symptoms, patient reportsno dizziness,no lightheadedness,no chest pain,no shortness of breath,no palpitations,no edema,no calf pain with exertion, andno headache. having PH monitor onSOB and wheezing better with proair MD Amanda Duran Formerly [facility], [facility] [address], [place], [address], [facility] 06/29/2016 19:37:49 12/07/2016 text/html Hypertension F/UReported by PatientHPIFor medications, patient reportstaking medications as directedandno side effects from medication. For lifestyle, patient reportsregular exercise,limiting/av oiding salt, andcompliant with low salt diet. For associated symptoms, patient reportsno dizziness,no lightheadedness,no chest pain,no shortness of breath,no palpitations,no edema,no calf pain with exertion, andno headache. upper abd pain , went to ER , per pt had CT and lab was NL, only UTIstill have pain Senthil Nicholas MD [address], [place], [address], [facility] 12/07/2016 13:51:13 01/18/2017 text/html Follow up from redness and itching to bilateral hands.recent UTI with now noted hematuria Ivonne gregory, [facility] 01/18/2017 19:36:42 OBGyn Episode No OBEpisode recorded.
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
--- OUTSIDE RECORDS SUMMARY | 2024-12-23 18:28 | XMS_ITS | Data Portability ---
Author Organization [place] ZAIRAJane Wiggins Address [address] [place] [address] Care Team Providers Care Professor Of Latin American Studies Name Role Phone GEOVANNA VELASQUEZ Primary Care [...] Modified Time Details Appointments None recorded. Lab HbA1c (hemoglobin A1c), blood 2024 025 [email or web address] In-Office Order, Internal Use Only DO Not Attach Compendium DO Not Attach Compendium, Do Not Delete/merge, [id number] 09:06:53 Mycobacteri um tuberculosi s stimulated gamma interferon, qual, blood 2023 024 [facility], [address] [facility], [address], [place], [address], 4 22:06:57 HbA1c (hemoglobin A1c), blood 2023 024 [email or web address] In-Office Order, Internal Use Only DO Not Attach Compendium DO Not Attach Compendium, Do Not Delete/merge, [id number] 14:25:54 CBC w/ auto diff 2023 024 [facility], [address], [address], [place], [place], [address], 4 22:07:00 CMP, serum or plasma 2023 024 [facility], [address], [address], [place], [address], 4 22:06:58 TSH + free T4, serum 2023 024 [facility], [address], [address], [place], [address], 4 09:16:24 albumin/cre atinine, mass ratio, urine 2023 024 [facility], [address], [address], [place], [address], 4 09:16:23 lipid panel, serum 2023 024 [facility], [address], [address], [place], [address], 4 09:16:25 HbA1c (hemoglobin A1c), blood 2023 024 [facility], [address], [address], [place], [address], 4 09:16:[address] referral 2023 024 [email or web address] Sosaf S Jose Jdevendra, [address] [facility] , [address], [place], [address], 08:13:39 Procedures polysomnogr aphy, split night (PROC) 2024 025 [facility], [address] [place], [address], 5 13:34:26 Surgeries None recorded. Imaging US, neck, soft tissue [address], [facility] [address] [facility], [place], [address], 4 08:02:10 US, breast, bilateral - there is an elongated mobile mass at the upper middle outer quadrant Left side there is a small pea sized mass, hard around 3:30 1 inch from nipple [address] [facility], [facility] [address] [facility], [place], [address], 4 08:02:10 MAMMO, diagnostic, digital, bilateral [address], [facility] [address] [facility], [place], [address], 4 08:02:10 XR, chest, 2 view [address], [facility] [address] [facility], [place], [address], 4 08:02:10 polysomnogr am, split night [address], [facility] [address], [place], [address], 4 08:13:00 Medication Orders lisinopril 20 mg-hydrochl orothiazide 12.5 mg tablet 2024 [facility] #63757, [address] [place], [place], [id number], 5 12:57:27 fluconazole 150 mg tablet 2024 [facility] #91950, [address] [place], [place], [id number], 5 05:02:09 Lantus Solostar U-100 Insulin 100 unit/mL (3 mL) subcutaneou s pen 2024 [facility] #12404, [address] [place], [place], [id number], 5 09:08:56 Farxiga 10 mg tablet [email or web address] [facility] #06267, [address] [place] [address], [id number], 4 14:25:53 lisinopril 10 mg tablet 2023 [facility] #56931, [address] [place], [place], [id number], 5 10:03:54 Ozempic 0.25 mg or 0.5 mg (2 mg/1.5 mL) subcutaneou s pen injector 2023 024 [facility] #06928, [address] [place], [place], [id number], 4 16:14:59 OneTouch Ultra Test strips 2023 [facility] #87531, [address] [place], [place], [id number], 4 15:01:23 fluoxetine 20 mg capsule 2023 024 [facility], [address], [place], [id number], 5 10:03:27 Farxiga 10 mg tablet 2023 024 [facility], [address] [place], [place], [id number], 4 10:17:43 lisinopril 10 mg tablet [address] [facility] #85659, [address] [place], [place], [id number], 5 10:03:38 fluoxetine 20 mg capsule 2023 024 [email or web address], [address] [place], [place], [id number], 5 10:03:27 albuterol sulfate HFA 90 mcg/actuati on aerosol inhaler 2023 024 [facility], [address] [place], [place], [id number], 4 12:53:56 Ozempic 0.25 mg or 0.5 mg (2 mg/1.5 mL) subcutaneou s pen injector [email or web address] [facility] #42376, [address] [place], [place], [id number], 4 16:14:42 lisinopril 10 mg tablet 2023 024 [email or web address], [address] [place], [place], [id number], 5 10:03:38 omega-3 fatty acids 1,000 mg capsule 2023 024 [facility] #88956, [address] [place], [place], [id number], 4 12:49:31 fluoxetine 20 mg capsule 2023 024 [email or web address] [facility] #88420, [address], [place], [id number], 5 10:03:27 metronidazo le 0.75 % topical cream 2023 024 [facility] #93331, [address], [place], [id number], 4 10:17:33 Patient TargetsNo targets recorded. 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 Not Available [facility] ([facility]) [address] [place], [address], 09/05/2023 09:16:23 09/04/19 24 09/05/2023 ALBUM IN/CR EATIN INE RATIO ,URIN E albumin, urine 27.9 ug/mL notest ab. Not Available [facility] ([facility]) [address] [place], [address], 09/05/2023 09:16:23 09/04/19 24 09/05/2023 ALBUM IN/CR EATIN INE RATIO ,URIN E alb/creat ratio 11 mg/g_ creat 0-29 Allyn l: 0 - 29 Moder ately incre ased: 30 - 300 Sever arnaldo incre ased: >300 Not Available [facility] ([facility]) [address] [place], [address], 09/05/2023 09:16:23 09/04/19 24 09/05/2023 TSH+F REE T4 TSH 4.170 uIU/m L 0.450- 4.500 Not Available [facility] ([facility]) [address] [place], [address], 09/05/2023 09:16:24 09/04/19 24 09/05/2023 TSH+F REE T4 T4,free(dire ct) 1.35 NG/dL 0.82-1 .77 Not Available [facility] ([facility]) [address] [place], [address], 09/05/2023 09:16:24 09/04/19 24 09/05/2023 LIPID PANEL cholesterol, total 137 mg/dL 100-19 9 Not Available [facility] ([facility]) [address] [place], [address], 09/05/2023 09:16:25 09/04/19 24 09/05/2023 LIPID PANEL triglyceride s 246 mg/dL 0-149 above high normal Not Available [facility] ([facility]) [address] [place], [address], 09/05/2023 09:16:25 09/04/19 24 09/05/2023 LIPID PANEL HDL cholesterol 35 mg/dL >39 below low normal Not Available [facility] ([facility]) [address] [place], [address], 09/05/2023 09:16:25 09/04/19 24 09/05/2023 LIPID PANEL VLDL cholesterol stanley 40 mg/dL 5-40 Not Available [facility] ([facility]) [address] [place], [address], 09/05/2023 09:16:25 09/04/19 24 09/05/2023 LIPID PANEL LDL chol calc ([facility]) 62 mg/dL 0-99 Not Available [facility] ([facility]) [address] [place], [address], 09/05/2023 09:16:25 09/04/19 24 09/05/2023 HEMOG LOBIN A1C hemoglobin A1C 8.2 % 4.8-5. 6 above high normal Predi abete s: 5.7 - 6.4 Diabe ba: >6.4 Glyce kelsea contr ol for adult s with diabe ba: <7.0 Not Available [facility] ([facility]) [address] [place], [address], 09/05/2023 09:16:25 01/16/20 24 01/17/2024 QUANT IFERO N-TB GOLD PLUS quantiferon incubation INCUBA TION PERFOR MED. Not Available [facility] ([facility]) [address] [place], [address], 01/20/2024 22:06:57 01/16/20 24 01/17/2024 QUANT IFERO N-TB GOLD PLUS quantiferon criteria [...] ol for the test. Not Available [facility] ([facility]) [address] [place], [address], 01/20/2024 22:06:57 01/16/2001/20/2024 QUANT IFERO N-TB GOLD PLUS quantiferon- TB [...] y metho dolog y Not Available [facility] ([facility]) [address] [facility], [place], [address], 01/20/2024 22:06:57 01/16/20 24 01/20/2024 QUANT IFERO N-TB GOLD PLUS quantiferon TB1 Ag value 0.00 IU/mL Not Available [facility] ([facility]) [address] [place], [address], 01/20/2024 22:06:57 01/16/2001/20/2024 QUANT IFERO N-TB GOLD PLUS quantiferon TB2 Ag value 0.00 IU/mL Not Available [facility] ([facility]) [address] [place], [address], 01/20/2024 22:06:57 01/16/20 24 01/20/2024 QUANT IFERO N-TB GOLD PLUS quantiferon nil value 0.00 IU/mL Not Available [facility] ([facility]) [address] [place], [address], 01/20/2024 22:06:57 01/16/20 24 01/20/2024 QUANT IFERO N-TB GOLD PLUS quantiferon mitogen value >10.00 IU/mL Not Available [facility] ([facility]) [address] [place], [address], 01/20/2024 22:06:57 01/16/20 24 01/17/2024 COMP. METAB OLIC PANEL (14) glucose 335 mg/dL 70-99 above high normal Not Available [facility] ([facility]) [address] [place], [address], 01/20/2024 22:06:58 01/16/20 24 01/17/2024 COMP. METAB OLIC PANEL (14) BUN 16 mg/dL 6-20 Not Available [facility] ([facility]) [address] [place], [address], 01/20/2024 22:06:58 01/16/20 24 01/17/2024 COMP. METAB OLIC PANEL (14) creatinine 0.70 mg/dL 0.57-1 .00 Not Available [facility] ([facility]) [address] [place], [address], 01/20/2024 22:06:58 01/16/20 24 01/17/2024 COMP. METAB OLIC PANEL (14) eGFR 119 mL/mi n/1.7 3 >59 Not Available [facility] ([facility]) [address] [place], [address], 01/20/2024 22:06:58 01/16/20 24 01/17/2024 COMP. METAB OLIC PANEL (14) BUN/creatini ne ratio 23 9-23 Not Available [facility] ([facility]) [address] [facility] [place], [address], 01/20/2024 22:06:58 01/16/20 24 01/17/2024 COMP. METAB OLIC PANEL (14) sodium 135 mmol/ L 134-14 4 Not Available [facility] ([facility]) [address] [facility] [place], [address], 01/20/2024 22:06:58 01/16/20 24 01/17/2024 COMP. METAB OLIC PANEL (14) potassium 4.9 mmol/ L 3.5-5. 2 Not Available [facility] ([facility]) [address] [facility] [place], [address], 01/20/2024 22:06:58 01/16/20 24 01/17/2024 COMP. METAB OLIC PANEL (14) chloride 101 mmol/ L 96-106 Not Available [facility] ([facility]) [address] [facility] [place], [address], 01/20/2024 22:06:58 01/16/20 24 01/17/2024 COMP. METAB OLIC PANEL (14) carbon dioxide, total 20 mmol/ L 20-29 Not Available [facility] ([facility]) [address] [facility] [place], [address], 01/20/2024 22:06:58 01/16/20 24 01/17/2024 COMP. METAB OLIC PANEL (14) calcium 9.1 mg/dL 8.7-10 .2 Not Available [facility] ([facility]) [address] [facility] [place], [address], 01/20/2024 22:06:58 01/16/20 24 01/17/2024 COMP. METAB OLIC PANEL (14) protein, total 6.6 g/dL 6.0-8. 5 Not Available [facility] ([facility]) [address] [facility], [place], [address], 01/20/2024 22:06:58 01/16/20 24 01/17/2024 COMP. METAB OLIC PANEL (14) albumin 3.9 g/dL 3.9-4. 9 Not Available [facility] ([facility]) [address] [facility], [place], [address], 01/20/2024 22:06:58 01/16/20 24 01/17/2024 COMP. METAB OLIC PANEL (14) globulin, total 2.7 g/dL 1.5-4. 5 Not Available [facility] ([facility]) [address] [facility], [place], [address], 01/20/2024 22:06:58 01/16/20 24 01/17/2024 COMP. METAB OLIC PANEL (14) bilirubin, total <0.2 mg/dL 0.0-1. 2 Not Available [facility] ([facility]) [address] [facility], [place], [address], 01/20/2024 22:06:58 01/16/20 24 01/17/2024 COMP. METAB OLIC PANEL (14) alkaline phosphatase 103 IU/L 44-121 Not Available [facility] ([facility]) [address] [facility], [place], [address], 01/20/2024 22:06:58 01/16/20 24 01/17/2024 COMP. METAB OLIC PANEL (14) AST (SGOT) 15 IU/L 0-40 Not Available [facility] ([facility]) [address] [facility], [place], [address], 01/20/2024 22:06:58 01/16/20 24 01/17/2024 COMP. METAB OLIC PANEL (14) ALT (SGPT) 22 IU/L 0-32 Not Available [facility] ([facility]) [address] [facility], [place], [address], 01/20/2024 22:06:58 01/16/20 24 01/17/2024 CBC WITH DIFFE RENTI AL/PL ATELE T WBC 8.9 x10e3 /uL 3.4-10 .8 Eff ectiv e Decem aaron 2023 profi katherine [id number] WBC will be made* * non-o rdera ble as a stand -yousif e order code. Not Available [facility] ([facility]) [address] [facility], [place], [address], 01/20/2024 22:07:00 01/16/20 24 01/17/2024 CBC WITH DIFFE RENTI AL/PL ATELE T RBC 4.88 x10e6 /uL 3.77-5 .28 Not Available [facility] ([facility]) [address] [place], [address], 01/20/2024 22:07:00 01/16/20 24 01/17/2024 CBC WITH DIFFE RENTI AL/PL ATELE T hemoglobin 13.2 g/dL 11.1-1 5.9 Not Available [facility] ([facility]) [address] [facility], [place], [address], 01/20/2024 22:07:00 01/16/20 24 01/17/2024 CBC WITH DIFFE RENTI AL/PL ATELE T hematocrit 42.2 % 34.0-4 6.6 Not Available [facility] ([facility]) [address] [facility], [place], [address], 01/20/2024 22:07:00 01/16/20 24 01/17/2024 CBC WITH DIFFE RENTI AL/PL ATELE T MCV 87 fL 79-97 Not Available [facility] ([facility]) [address] [place], [address], 01/20/2024 22:07:00 01/16/20 24 01/17/2024 CBC WITH DIFFE RENTI AL/PL ATELE T MCH 27.0 pg 26.6-3 3.0 Not Available [facility] ([facility]) [address] [facility], [place], [address], 01/20/2024 22:07:00 01/16/20 24 01/17/2024 CBC WITH DIFFE RENTI AL/PL ATELE T MCHC 31.3 g/dL 31.5-3 5.7 below low normal Not Available [facility] ([facility]) [address] [facility], [place], [address], 01/20/2024 22:07:00 01/16/20 24 01/17/2024 CBC WITH DIFFE RENTI AL/PL ATELE T RDW 13.6 % 11.7-1 5.4 Not Available [facility] ([facility]) [address] [facility], [place], [address], 01/20/2024 22:07:00 01/16/20 24 01/17/2024 CBC WITH DIFFE RENTI AL/PL ATELE T platelets 353 x10e3 /uL 150-45 0 Not Available [facility] ([facility]) [address] [facility], [place], [address], 01/20/2024 22:07:00 01/16/20 24 01/17/2024 CBC WITH DIFFE RENTI AL/PL ATELE T neutrophils 63 % notest ab. Not Available [facility] ([facility]) [address] [facility], [place], [address], 01/20/2024 22:07:00 01/16/20 24 01/17/2024 CBC WITH DIFFE RENTI AL/PL ATELE T lymphs 26 % notest ab. Not Available [facility] ([facility]) [address] [facility], [place], [address], 01/20/2024 22:07:00 01/16/20 24 01/17/2024 CBC WITH DIFFE RENTI AL/PL ATELE T monocytes 5 % notest ab. Not Available [facility] ([facility]) [address] [facility], [place], [address], 01/20/2024 22:07:00 01/16/20 24 01/17/2024 CBC WITH DIFFE RENTI AL/PL ATELE T eos 4 % notest ab. Not Available [facility] ([facility]) [address] [facility], [place], [address], 01/20/2024 22:07:00 01/16/20 24 01/17/2024 CBC WITH DIFFE RENTI AL/PL ATELE T basos 1 % notest ab. Not Available [facility] ([facility]) [address] [facility], [place], [address], 01/20/2024 22:07:00 01/16/20 24 01/17/2024 CBC WITH DIFFE RENTI AL/PL ATELE T neutrophils (absolute) 5.6 x10e3 /uL 1.4-7. 0 Not Available [facility] ([facility]) [address] [facility], [place], [address], 01/20/2024 22:07:00 01/16/20 24 01/17/2024 CBC WITH DIFFE RENTI AL/PL ATELE T lymphs (absolute) 2.3 x10e3 /uL 0.7-3. 1 Not Available [facility] ([facility]) [address] [facility], [place], [address], 01/20/2024 22:07:00 01/16/20 24 01/17/2024 CBC WITH DIFFE RENTI AL/PL ATELE T monocytes(ab solute) 0.4 x10e3 /uL 0.1-0. 9 Not Available [facility] ([facility]) [address] [place], [address], 01/20/2024 22:07:00 01/16/20 24 01/17/2024 CBC WITH DIFFE RENTI AL/PL ATELE T eos (absolute) 0.3 x10e3 /uL 0.0-0. 4 Not Available [facility] ([facility]) [address] [facility], [place], [address], 01/20/2024 22:07:00 01/16/20 24 01/17/2024 CBC WITH DIFFE RENTI AL/PL ATELE T baso (absolute) 0.1 x10e3 /uL 0.0-0. 2 Not Available [facility] ([facility]) [address] [facility], [place], [address], 01/20/2024 22:07:00 01/16/20 24 01/17/2024 CBC WITH DIFFE RENTI AL/PL ATELE T immature granulocytes 1 % notest ab. Not Available [facility] ([facility]) [address] [facility], [place], [address], 01/20/2024 22:07:00 01/16/20 24 01/17/2024 CBC WITH DIFFE RENTI AL/PL ATELE T immature grans (abs) 0.1 x10e3 /uL 0.0-0. 1 Not Available [facility] ([facility]) [address] [facility], [place], [address], 01/20/2024 22:07:00 01/16/20 24 01/16/2024 HbA1c (hemo globi n A1c), blood HbA1c 9.3% Not Available In-Office Order Internal Use Only DO Not Attach Compendium DO Not Attach Compendium, Do Not Delete/merge, [id number] 01/16/2024 14:07:26 09/10/19 25 09/09/2024 HbA1c (hemo globi n A1c), blood HbA1C 10.2 % Not Available In-Office Order Internal Use Only DO Not Attach Compendium DO Not Attach Compendium, Do Not Delete/merge, [id number] 09/09/2024 08:36:12 07/31/19 24 07/12/2023 polys omnog sanjay, split night No observ ation record ed. [address], [place], [address], 08/15/2023 11:41:42 07/31/19 24 07/12/2023 sleep study , diagn ostic (PROC ) No observ ation record ed. [address], [place], [address], 07/31/2023 19:01:20 11/17/19 24 11/17/2023 XR, chest , 2 view No observ ation record ed. [address], [place], [address], 11/20/2023 09:31:42 11/17/1911/17/2023 US, doppl er, venou s No observ ation record ed. [address], [place], [address], 11/20/2023 09:33:12 11/18/19 24 11/17/2023 trans -thor acic echoc ardio gram (TTE) (PROC ) No observ ation record ed. [address], [place], [address], 11/21/2023 04:21:15 03/13/19 25 03/13/2024 XR, chest , 2 view No observ ation record ed. [address], [place], [address], 03/13/2024 13:04:41 11/13/1911/01/2024 polys omnog gray , split night (PROC ) No observ ation record ed. [facility] [address], [place], [address], 11/19/2024 11:24:42 Result Notes None recorded. Problems Name Problem SNOMED Code Status Onset Date Resolution Date Notes Provider Name and Address Organization Details Recorded Time Diabetes mellitus 15992546 Active 2019 BOBO CLAUDIO Attn: Accounting ,[address] [place], [address] , [place] [facility] 0 12:57:17 Essential hypertension 25848789 Active 2019 BOBO CLAUDIO Attn: Accounting ,[address] [facility], [place], [place], [address] [place] [address] , [place] [facility] 0 12:57:28 Hyperlipidemi a 08957346 Active 2019 BOBO CLAUDIO Attn: Accounting ,[address] [facility], [place], [address] [place] [address] , [place] [facility] 0 12:57:34 Asthma 687926613 Active 2019 BOBO CLAUDIO Attn: Accounting ,[address] [facility], [place], [address] [place] [address] , [place] [facility] 0 12:57:39 Depressive disorder 62055439 Active 2019 BOBO CLAUDIO Attn: Accounting ,[address] [facility], [place], [address] [place] [address] , [place] [facility] 0 12:57:59 Hypothyroidis m 58981658 Active 2019 BOBO CLAUDIO Attn: Accounting ,[address] [place], [place], [address] [place] [address] , [place] [facility] 0 13:27:14 Vaping Active 2020 BOBO CLAUDIO Attn: Accounting ,[address] [facility], [place], [address] [place] [address] , [place] - [facility] 1 10:15:55 Cervical lymphadenopat hy 755904737 Active 2021 BOBO CLAUDIO Attn: Accounting ,[address] [place], [place], [address] [place] [address] , [place] [facility] 2 09:30:54 Myelocytes in blood 332122806 Active 2021 BOBO CLAUDIO Attn: Accounting ,[address] [place], [address] , [place] [facility] 2 09:30:55 Chest pain 80599092 Active 2021 BOBO CLAUDIO Attn: Accounting ,[address] [facility], [place], [address] , [place] [facility] 2 09:30:57 Smoker 15409320 Active 2021 BOBO CLAUDIO Attn: Accounting ,[address] [facility], [place], [address] , [place] [facility] 2 10:52:22 Morbid obesity 404228681 Active 2022 BOBO CLAUDIO Attn: Accounting ,[address] [facility], [place], [address] , [place] [facility] 3 10:20:16 Musculoskelet al pain 940660018 Active 2022 BOBO CLAUDIO Attn: Accounting ,[address] [facility], [place], [address] , [place] [facility] 3 10:26:15 Neutrophilia 953393441 Active 2022 BOBO CLAUDIO Attn: Accounting ,[address] [facility], [place], [address] , [place] [facility] 3 11:37:42 Major depressive disorder 393341835 Active 2022 BOBO CLAUDIO Attn: Accounting ,[address] [facility], [place], [address] , [place] [facility] 3 11:28:49 Perioral dermatitis 045827617 Active 2023 BOBO CLAUDIO Attn: Accounting ,[address] [facility], [place], [address] , [place] [facility] 4 12:53:24 Obstructive sleep apnea syndrome 22099819 Active 2023 BOBO CLAUDIO Attn: Accounting ,[address] [facility], [place], [address] , [place] [facility] 4 12:53:25 Wheezing 92099151 Active 2023 BOBO CLAUDIO Attn: Accounting ,[address], [place], [address] , [facility] - SI 4 10:16:50 Type 2 diabetes mellitus 49841488 Active 2024 Ruthie Rowe RN null, [place] - [facility] 5 15:57:37 Problem Notes None recorded. Medical Equipment None Reported. Allergies Allergen ID Allergen Name Allergen Category Reaction Reaction Severity Criticality Documentation Date Start Date Code Code System Note Provider Name and Address Organization Details Recorded Time 772104 amoxicill in medicatio n facial swelling Not available Not available 06/11/2019 723 RxNorm BOBO CLAUDIO Attn: Accountin g,[address] [facility], [place], [address], [facility] - SI 0 12:56:25 Medications Name Sig Start Date Stop Date Status Note LastModified by Organization Details LastModified Time Prescript ion - Prior Authoriza tion Request active Not Available Not Available Not Available metformin 500 mg tablet TAKE 1 TABLET BY MOUTH DAILY 07/01 completed Not Available Not Available Not Available naproxen 375 mg tablet TAKE 1 TABLET BY MOUTH TWICE DAILY 09/09 completed Not Available Not Available Not Available clindamyc in HCl 300 mg capsule TAKE 1 CAPSULE [...] Not Available Not Available Not Avai lable lisinopri l 20 mg-hydroc hlorothia zide 12.5 mg tablet Take 1 tablet every day by oral route for 90 days. 09/11 completed cannot toalrate water pill Not Available Not Available Not Available azithromy alex 250 mg tablet TK 2 TS PO ON DAY 1, THEN TK 1 T PO D FOR 4 DAYS 03/20 completed Not Available Not Available Not Available ibuprofen 800 mg tablet TAKE 1 TABLET BY MOUTH EVERY 6-8 HOURS NEEDED 09/09 completed Not Available Not Available Not Available fluconazo le 150 mg tablet Take 1 tablet by oral route for 1 day. 09/17 completed Not Available Not Available Not Available benzonata te 200 mg capsule TAKE 1 CAPSULE BY MOUTH THREE TIMES DAILY NEEDED FOR COUGH 07/01 completed Not Available Not Available Not Available lisinopri l 20 mg tablet Take 1 tablet every day by oral route for 90 days. 2024 active Not Available Not Available Not Avai lable prednison e 20 mg tablet TAKE 1 TABLET BY MOUTH TWICE DAILY 05/18 completed Not Available Not Available Not Available hydralazi ne 25 mg tablet TAKE 1 TABLET BY MOUTH THREE TIMES DAILY 05/18 completed Not Available Not Available Not Available meclizine 12.5 mg tablet TAKE 1 TABLET BY MOUTH THREE TIMES DAILY NEEDED FOR DIZZINES S 07/18 completed Not Available Not Available Not Available metronida zole 500 mg tablet TAKE 1 TABLET BY MOUTH EVERY 8 HOURS 09/09 completed Not Available Not Available Not Available sulfameth oxazole 800 mg-trimet hoprim 160 mg tablet TAKE 1 TABLET BY MOUTH EVERY 12 HOURS FOR 10 DAYS 07/17 completed Not Available Not Available Not Available tramadol 50 mg tablet TAKE 1 TABLET BY MOUTH EVERY 6 HOURS NEEDED FOR PAIN 02/16 completed Not Available Not Available Not Available acetamino phen 500 mg tablet TAKE 2 TABLETS BY MOUTH EVERY 8 HOURS NEEDED FOR PAIN OR FEVER. 07/29 completed Not Available Not Available Not Available levothyro xine 75 mcg tablet TAKE 1 TABLET BY MOUTH EVERY MORNING BEFORE BREAKFAS T active Not Available Not Available No t Available ofloxacin 0.3 % ear drops INSTILL 10 DROPS TO RIGHT EAR DAILY FOR 7 DAYS 04/26 completed Not Available Not Available Not Available diltiazem 120 mg tablet TAKE 1 TABLET BY MOUTH EVERY DAY 12/05 completed Not Available Not Available Not Available amlodipin e 10 mg tablet TAKE 1 TABLET BY MOUTH EVERY DAY 04/28 completed Not Available Not Available Not Available benzonata te 100 mg capsule Take 1 capsule 3 times a day by oral route for 5 days. 03/20 completed Not Available Not Available Not Available doxycycli ne monohydra te 100 mg capsule TAKE 1 CAPSULE BY MOUTH TWICE DAILY FOR 7 DAYS 04/26 completed Not Available Not Available Not Available erythromy alex 5 mg/gram (0.5 %) eye ointment APPLY SMALL RIBBON TO LEFT EYELASHE S TWICE DAILY 09/11 completed Not Available Not Available Not Available oseltamiv ir 75 mg capsule TAKE 1 CAPSULE BY MOUTH EVERY 12 HOURS 09/09 completed Not Available Not Available Not Available metformin 1,000 mg tablet active Not Available Not Available Not Available lisinopri l 10 mg tablet TAKE 1 TABLET BY MOUTH EVERY DAY 09/09 completed Not Available Not Available Not Available lidocaine 5 % topical patch APPLY 1 PATCH TOPICALL Y TO THE SKIN DAILY. LEAVE ON MOST PAINFUL AREA FOR UP TO 12 HOURS 07/29 completed Not Available Not Available Not Available metronida zole 0.75 % topical cream APPLY THIN LAYER TOPICALL Y TO THE AFFECTED AREA TWICE DAILY IN THE MORNING AND IN THE EVENING 09/11 completed Not Available Not Available Not Available metoprolo l tartrate 50 mg tablet TAKE 1 TABLET BY MOUTH EVERY 12 HOURS 05/18 completed Not Available Not Available Not Available lisinopri l 20 mg-hydroc hlorothia zide 25 mg tablet TAKE 1 TABLET BY MOUTH EVERY MORNING 09/11 completed Not Available Not Available Not Available ergocalci ferol (vitamin D2) 1,250 mcg (50,000 unit) capsule TAKE 1 CAPSULE BY MOUTH 2 TIMES A WEEK active Not Available Not Available No t Available ibuprofen 600 mg tablet TAKE 1 TABLET BY MOUTH EVERY 6 HOURS NEEDED FOR PAIN 07/29 completed Not Available Not Available Not Available levofloxa alex 750 mg tablet 01/15 completed Not Available Not Available Not Available methylpre dnisolone 4 mg tablets in a dose pack FOLLOW PACKAGE DIRECTIO NS 04/28 completed Not Available Not Available Not Available albuterol sulfate HFA 90 mcg/actua tion aerosol inhaler INHALE 2 PUFFS BY MOUTH EVERY 4 HOURS active Not Available Not Available No t Available cefdinir 300 mg capsule TAKE 1 CAPSULE BY MOUTH EVERY 12 HOURS 12/23 completed Not Available Not Available Not Available fluoxetin e 20 mg capsule TAKE 1 CAPSULE BY MOUTH EVERY DAY 09/09 completed Not Available Not Available Not Available glipizide 5 mg tablet TAKE 1 TABLET BY MOUTH DAILY AT 6.30 AM 07/01 completed Not Available Not Available Not Available Microlet Lancet DIRECTED TWICE DAILY active Not Available Not Available No t Available minoxidil 2 % topical solution APPLY 1 MILLILIT ER BY TOPICAL ROUTE 2 TIMES PER DAY , EVERY DAY, DIRECTLY ONTO THE SCALP IN THE HAIR LOSS AREA, STOP USING IF NO HAIR REGROWTH AFTER 4 MONTHS 2024 active Not Available Not Available Not Avai lable neomycin- polymyxin -hydrocor t 3.5 mg-10,000 unit/mL-1 % ear drops,janine p INSTILL 4 DROPS INTO AFFECTED EAR(S) BY [...] completed Not Available Not Available Not Available Alcohol Prep Pads APPLY 1 PAD TOPICALL Y DIRECTED TO STERILIZ E AREA active Not Available Not Available No t Available omega-3 acid ethyl esters 1 gram capsule TAKE 2 CAPSULES BY MOUTH EVERY DAY active Not Available Not Available No t Available FeroSul 325 mg (65 mg iron) tablet TAKE 1 TABLET BY MOUTH TWICE DAILY WITH FOOD 05/18 completed Not Available Not Available Not Available Lantus Solostar U-100 Insulin 100 unit/mL (3 mL) subcutane ous pen ADMINIST ER 10 UNITS UNDER THE SKIN EVERY DAY AT BEDTIME active Not Available Not Available No t Available levothyro xine 75 mcg capsule Take 1 capsule every day by oral route in the morning. 12/05 completed Not Available Not Available Not Available loratadin e 10 mg capsule Take 1 capsule every day by oral route. 12/05 completed Not Available Not Available Not Available Farxiga 10 mg tablet Take 1 tablet every day by oral route for 30 days. active Not Available Not Available No t Available potassium chloride ER 20 mEq tablet,ex tended release TAKE 2 TABLETS BY MOUTH TWICE DAILY WITH A MEAL 05/18 completed Not Available Not Available Not Available Trulicity 1.5 mg/0.5 mL subcutane ous pen injector ADMINIST ER 1.5 MG UNDER THE SKIN EVERY WEEK 09/09 completed Not Available Not Available Not Available Trulicity 0.75 mg/0.5 mL subcutane ous pen injector ADMINIST ER 0.75 MG UNDER THE SKIN EVERY WEEK 04/28 completed Not Available Not Available Not Available OneTouch Verio Flex Meter USE DIRECTED TWICE DAILY active Not Available Not Available No t Available TRUEplus Pen Needle 32 gauge x 5/32 USE 1 EACH DIRECTED EVERY NIGHT AT BEDTIME active Not Available Not Available No t Available Ozempic 0.25 mg or 0.5 mg (2 mg/1.5 mL) subcutane ous pen injector Inject 0.5 mg every week by subcutan eous route. 01/29 completed Not Available Not Available Not Available OneTouch Ultra Blue Test Strip USE 2 STRIPS TO TEST BLOOD SUGAR EVERY DAY 2019 active Not Available Not Available Not Avai lable OneTouch Delica Plus Lancet 33 gauge DIRECTED TWICE DAILY active Not Available Not Available No t Available albuterol sulf 90 mcg/actua tion breath activated powder inhaler,s ensor Inhale 2 puffs every 4 hours by inhalati on route. 12/05 completed Not Available Not Available Not Available Trulicity 3 mg/0.5 mL subcutane ous pen injector ADMINIST ER 3 MG UNDER THE SKIN EVERY 7 DAYS 09/09 completed Not Available Not Available Not Available Trulicity 4.5 mg/0.5 mL subcutane ous pen injector ADMINIST ER 4.5 MG UNDER THE SKIN EVERY WEEK active Not Available Not Available No t Available BinaxNOW COVID-19 Ag Self Test kit TEST DIRECTED TODAY 07/29 completed Not Available Not Available Not Available Ozempic 0.25 mg or 0.5 mg (2 mg/3 mL) subcutane ous pen injector Inject by subcutan eous route for 56 days. 09/11 completed Not Available Not Available Not Available Contour Plus Test Strip Use to check blood sugar twice a day 2024 active Not Available Not Available Not Avai lable Vitals Date Recorded Body height Body mass index (BMI) Body weight Heart rate Oxygen saturation Oxygen saturation in Arterial blood by Pulse oximetry Systolic And Diastolic Provider Name and Address Organization Details Last Updated DateTime 4 149.86 cm 92.7 kg/m2 174799. 9 g 98 /min 96 % 96 % 135/84 mm[Hg] Joann Noland MA [facility] 4 12:05:00 Date Recorded Body mass index (BMI) Body weight Heart rate Provider Name and Address Organization Details Last Updated DateTime 07/18/2023 94.5 kg/m2 756935.23 g 100 /min BOBO CLAUDIO Attn: Accounting, [place], [address], [facility] 07/19/2023 11:09:45 Date Recorded Body height Respiratory rate Oxygen saturation Oxygen saturation in Arterial blood by Pulse oximetry Systolic And Diastolic Provider Name and Address Organization Details Last Updated DateTime 4 149.86 cm 20 /min 99 % 99 % 160/85 mm[Hg] Diann Hannah MA [facility] 12:18:22 Date Recorded Body mass index (BMI) Body weight Provider Name and Address Organization Details Last Updated DateTime 09/04/2023 92.9 kg/m2 413525.49 g BOBO CLAUDIO Attn: Accounting,[address] [place], [address], [facility] 09/04/2023 12:15:11 Date Recorded Body height Heart rate Oxygen saturation Oxygen saturation in Arterial blood by Pulse oximetry Systolic And Diastolic Provider Name and Address Organization Details Last Updated DateTime 4 149.86 cm 72 /min 98 % 98 % 134/85 mm[Hg] Joann Noland MA [facility] 4 12:00:46 Date Recorded Body height Body mass index (BMI) Body weight Heart rate Oxygen saturation Oxygen saturation in Arterial blood by Pulse oximetry Systolic And Diastolic Provider Name and Address Organization Details Last Updated DateTime 5 149.86 cm 91.1 kg/m2 445352. 16 g 88 /min 99 % 99 % 153/98 mm[Hg] Joann Noland MA [facility] 5 08:29:42 Date Recorded Body height Body mass index (BMI) Body weight Heart rate Oxygen saturation Oxygen saturation in Arterial blood by Pulse oximetry Systolic And Diastolic Provider Name and Address Organization Details Last Updated DateTime 4 149.86 cm 92.3 kg/m2 501043. 71 g 103 /min 98 % 98 % 133/85 mm[Hg] Joann Noland MA [place] - [facility] 4 14:03:15 Social History Question Answer Notes LastModified by [employer] Details LastModified Time Tobacco Smoking Status Current Every Day Smoker Joann Noland MA null, [place] - [facility] 07/26/2021 16:16:21 What Is Your Level Of Caffeine Consumption? Occasional Information not available 12/06/2019 Live Alone Or With Others? With Others Information not available 12/06/2019 What Was The Date Of Your Most Recent Tobacco Screening? 09/09/2024 Information not available 09/09/2024 How Many Children Do You Have? 0 Information not available 12/06/2019 Do You Have Smoke And Carbon Monoxide Detectors In Your Home? Yes Information not available 04/27/2023 Are You Passively Exposed To Smoke? Yes Information not available 04/27/2023 How Much Tobacco Do You Smoke? No Information not available 12/06/2019 General Stress Level Medium Information not available 12/06/2019 On What Date Was Tobacco Cessation Counseling Provided? 09/09/2024 Information not available 09/09/2024 Sex: Female Functional Status Question Answer Note LastModified by [employer] Details LastModified Time Do you use any illicit or recreational drugs? No [email or web address] Information not available 12/23/2020 What is your level of alcohol consumption? Occasional Information not available 12/06/2019 Do you or have you ever used smokeless tobacco? Never used smokeless tobacco Information not available 12/06/2019 Are you able to care for yourself independently? Yes Information not available 12/06/2019 Do you or have you ever used e-cigarettes or vape? Never used electronic cigarettes Information not available 12/06/2019 Mental Status None recorded. Family History Relationship Description Onset Age of this Age Resolved Age Notes LastModified by Organization Details LastModified Time Father No current problems or disability Not available 12/05 16:22:54 Mother No current problems or disability Not available 12/05 16:22:54 Medical History Condition Response Coronary Artery Disease N Other N Atrial Fibrillation N High Blood Pressure Y Thyroid Problems N Kidney or Bladder Problems N Depression N COPD N Blood Clots N GI Problems N Skin Problems N Anemia N Heart Attack ([place]) N Diabetes Y Anxiety Disorder N Muscle, Joint, or Bone Problems N Seizures/Epilepsy N Acid Reflux (GERD) N Cancer N Stroke N Allergies N Asthma N High Cholesterol Y Hepatitis N Liver Disease N Headaches N Osteoporosis N Heart Failure N Gynecological HistoryNo gynecological history recorded. Obstetrics [...] MA null, [place] - [facility] 12/23/2020 17:25:00 Hep B, adolescent or pediatric 3 completed Not Available [facility] 09/09/2024 08:24:33 Hep B, adolescent or pediatric 3 completed Not Available [facility] 09/09/2024 08:24:33 DTP 3 completed Not Available [facility] 09/09/2024 08:24:33 OPV, trivalent 3 completed Not Available [facility] 09/09/2024 08:24:33 Hib, unspecified formulation 3 completed Not Available [facility] 09/09/2024 08:24:33 DTP 4 completed Not Available [facility] 09/09/2024 08:24:33 Hep B, adolescent or pediatric 4 completed Not Available [facility] 09/09/2024 08:24:33 Hib, unspecified formulation 4 completed Not Available [facility] 09/09/2024 08:24:33 OPV, trivalent 4 completed Not Available [facility] 09/09/2024 08:24:33 Hep B, adolescent or pediatric 4 completed Not Available [facility] 09/09/2024 08:24:33 Hib, unspecified formulation 4 completed Not Available [facility] 09/09/2024 08:24:33 DTP 4 completed Not Available [facility] 09/09/2024 08:24:33 OPV, trivalent 4 completed Not Available [facility] 09/09/2024 08:24:33 Tdap 6 completed Not Available [facility] 09/09/2024 08:24:33 Pneumococcal conjugate PCV20, polysaccharide [id number] conjugate, adjuvant, PF 3 completed Joann Noland MA [facility]erged with [facility] 02/22/2022 11:13:35 Tdap 3 completed BOBO CLAUDIO Attn: Accounting[address] [place], [address], [facility] 07/29/2022 20:40:19 Past Encounters Encounter ID Performer Location Encounter Start Date Encounter Closed Date Diagnosis/Indication Diagnosis SNOMED-CT Code Diagnosis ICD10 Code Diagnosis IMO Codes Diagnosis Note [id number] BOBO CLAUDIO [facility] [address] [place] [address] 06/11/2019 09:37:59 06/12/2019 15:14:59 Diabetes mellitus 56135175 E11.9 Patient was diagnosed with DM 2017 [...] foot exam at next visit Essential hypertension 24906416 I10 BP check tomorrow in office medication [...] Advised goal for BP is <140/90 Hyperlipidemia 77137866 E78.5 checking cholestero l 06/12/19. instructed to come fasting. Not taking statin but does have DM. Will ge baseline liver enzymes before starting medication . Depressive disorder 7271 9008 F32.9 Patient has been diagnosed with depression [...] one month - call with questions Asthma 831300483 J45.90 9 Patient has asthma. She takes albuterol prn. She uses it occasional ly. Morbid obesity 870106137 E66.01 weight >500lbs. She has tried to cahnge some eating habbits. She has stopped soday adn only drinking water.- we had dicussion about diet, excercise, portion sizes.- start with 10 minutes/ day walking- if sitting in chair she should be moving her arms as this will burn calories- watch carbs, sweets, sugars Falls 542089197 R29.6 patient hvaing falls after getting released from hospitals. Had two days of PT in hospital but could use more to regain strength in leg. - PT- ER if numbness/ tingling saddle region, incontinen ce [id number] BOBO CLAUDIO [facility] [address] [place] [address] 06/14/2019 09:50:41 06/18/2019 03:46:44 [id number] BOBO CLAUDIO [facility] [address] [place] [address] 06/18/2019 09:21:47 06/20/2019 03:46:36 [id number] BOBO CLAUDIO [facility] [address] [place] [address] 12/06/2019 16:05:33 12/09/2019 11:24:41 Diabetes mellitus 10987553 E11.9 A1C May 6.4, wnl. Patient has been off medication since [...] - foot exam at next visit Hypothyroidism 37813047 E03.9 patient with uncontroll ed hypothyroi dism. will check labs. Was taking 75mcg Cervical lymphadenopathy 110501601 R59.0 patient has enlarged mobile supraclavi cular lymphadeno ranjith. Morbid obesity 422733499 E66.01 weight 466lbs. Drinking soda and not watching diet.- we had discussion about diet, excercise, portion sizes.- start with 10 minutes/ day walking- if sitting in chair she should be moving her arms as this will burn calories- watch carbs, sweets, sugars Depressive disorder 8723 9906 F32.9 Patient has been diagnosed with depression [...] f/u one month - call with questions [id number] BOBO CLAUDIO [facility] [address] [place] [address] 08/21/2020 08:02:48 08/25/2020 16:49:24 Hypothyroidism 02120915 E03.9 patient with uncontroll ed hypothyroi dism. will check labs. Was taking 75mcg. Again explained importance of medication adherence. Explained this is the pill that fixes her metabolis m hormone. and will help her lose weight. - needs labs before initiating medication Diabetes mellitus 605292 09 E11.9 A1C May 2019 6.4. Recent [...] foot exam at next visit Morbid obesity 329853108 E66.01 last weight 466lbs. not watching diet and states she is missing metabolis m hormone. Patient again educated on thyroid medication and importance of adherence and f/u testing.- we have discussed diet, exercise, portion sizes.- start with 10 minutes/ day walking- if sitting in chair she should be moving her arms as this will burn calories- watch carbs, sweets, sugars Depressive disorder 2381 5943 F32.9 Patient has been diagnosed with depression years ago. She was taking bupropion and it was helping but was off medication for many months. Does not want medication at this time as it makes her feel cranky. - f/u in person [id number] BOBO CLAUDIO [facility] [address] [place] [address] 10/28/2020 17:33:02 10/31/2020 10:16:59 Diabetes mellitus 74393562 E11.9 A1C May 2019 6.4. Recent ER [...] foot exam at next visit Essential hypertension 50429390 I10 BP elevated at 140/90. had stopped [...] this time as it makes her feel cranky. Will try prozac as she states she is not good at taking pills - f/u in person Binge eating disorder 43 1939750 F50.81 patient has binge eating disorder. treating with prozac. she will consider therapy. Hypothyroidism 96852473 E03.9 patient with uncontroll ed hypothyroi dism. will check labs. Was taking 75mcg. Again explained importance of medication adherence. Explained this is the pill that fixes her metabolis m hormone. and will help her lose weight. - needs labs before initiating medication Morbid obesity 139404268 E66.01 weight today 566lbs. not watching diet and states she is missing metabolis m hormone. Patient again educated on thyroid medication and importance of adherence and f/u testing.- we have discussed diet, exercise, portion sizes.- start with 10 minutes/ day walking- if sitting in chair she should be moving her arms as this will burn calories- watch carbs, sweets, sugars [id number] BOBO CLAUDIO [facility] [address] [place] [address] 12/23/2020 17:13:51 12/28/2020 07:04:15 Hypothyroidism 58316025 E03.9 patient with uncontroll ed hypothyroi dism. will check labs. Was taking 75mcg. Again explained importance of medication adherence. Explained this is the pill that fixes her metabolis m hormone. and will help her lose weight. - needs labs before initiating medication Morbid obesity 433303683 E66.01 weight today 451 which is down from 501 lbs. not following diet. Patient again educated on thyroid medication and importance of adherence and f/u testing.- we have discussed diet, exercise, portion sizes.- start with 10 minutes/ day walking- if sitting in chair she should be moving her arms as this will burn calories- watch carbs, sweets, sugars Diabetes mellitus 840231 09 E11.9 A1C May 2019 6.4. Patient [...] foot exam at next visit Essential hypertension 21600278 I10 BP elevated at 130/90. Took all [...] goal for BP is <140/90 Depressive disorder 6076 6169 F32.9 Patient has been diagnosed with depression years ago. She was taking bupropion and it was helping but was off medication for many months. Does not want medication at this time as it makes her feel cranky. Will try prozac as she states she is not good at taking pills - f/u in person Binge eating disorder 43 2833607 F50.81 patient has binge eating disorder. treating with prozac. she will consider therapy. Supraclavi cular lymphadenopathy 150729175 R59.0 Patient has right sided enlarged lymph-node . will work up Vaping 187589744 Z77.29 Per notes from 11/07/20 hospitaliz ation, her respiratoy failure was due to vaping. encouraged to stop Respiratory failure 4096 24379 J96.90 patient went to [facility] on 11/07/20 for sob and xray found [...] pneumonia requiring hospitaliz ation and ECMO.extub ated [id number] BOBO CLAUDIO [facility] [address] [place] [address] 05/18/2021 16:34:14 05/21/2021 09:54:33 Diabetes mellitus 15591098 E11.9 A1C 6.2% 04/2021, 6.4% 05/2019 . [...] pulses, possible due to habitus Essential hypertension 10377090 I10 BP elevated at 130/90. Took all [...] Advised goal for BP is <140/90 Hyperlipidemia 02061903 E78.5 checking cholestero l 06/12/19. instructed to come fasting. Not taking statin but does have DM. Will ge baseline liver enzymes before starting medication . Hypothyroidism 54206200 E03.9 takes 75mcg. patient taking as prescribed TSH/T4: normal 04/2021 Chest pain 19752908 R07. 9 Patient with BMI 90.9, DM, hyperlipid emia, hypothyroi dism c/o chest pain 2-3 x per week walking or sitting. sometimes doing dishes. she endorses sob on walking. DM: controlled with A1C 6.2 Myelocytes in blood 2757 18778 R79.89 100 cells/uL meramyeloc ytes and 300 cells/uL myleocytes in presence of right supra-clav icular lymphadeno pahy following Dr Hall, hematologi , May 24 is next visit. Cervical lymphadenopathy 507233385 R59.0 patient has enlarged mobile supraclavi cular lymphadeno ranjith. Morbid obesity 814198381 E66.01 weight today 451 which is down from 501 lbs. n - we have discussed diet, exercise, portion sizes.- start with 10 minutes/ day walking- if sitting in chair she should be moving her arms as this will burn calories- watch carbs, sweets, sugars [id number] BOBO CLAUDIO [facility] [address] [place] [address] 07/26/2021 16:05:44 07/27/2021 12:53:11 Otitis media 30834536 H66.93 3 weeks of b/l ear pain. On exam b/l ear are erythemato us and bulging. allergy to amoxicilli n (facial swelling). Will trial doxy and f/u in 72 hours if not improving. - abx as prescribed - tylenol/IB U for pain prn [id number] BOBO CLAUDIO [facility] [address] [place] [address] 02/16/2022 10:13:12 02/17/2022 11:57:11 Diabetes mellitus 70977748 E11.9 A1C 6.2% 04/2021, 6.4% 05/2019 . [...] posterior pulses, possible due to habitus Hypothyroidism 62723346 E03.9 takes 75mcg but has not taken since August 2021 TSH/T4: normal 04/2021 Administra tion of pneumococcal vaccine 47387463 Z23 given today Morbid obesity 715306400 E66.01 weight today 465 today which is [...] calories- watch carbs, sweets, sugars Cervical lymphadenopathy 057267298 R59.0 patient has enlarged mobile supraclavi cular lymphadeno ranjith R>L Depressive disorder 4664 9009 F32.9 Patient has been diagnosed with depression [...] month - call with questions Essential hypertension 79429623 I10 BP elevated at 138/90. Not taken [...] Advised goal for BP is <140/90 Smoker 33132632 F17.200 1/ ppd x 1 yearadvise d quitting. she was vaping nicotine before. [id number] BOBO CLAUDIO [facility] [address] [place] [address] 04/28/2022 09:20:31 04/28/2022 09:55:08 Diabetes mellitus [id number] E11.9 A1C 9.4% (04/28/2022) 6.2% 04/2021, 6.4% [...] month as unable to dialate eyes Hypothyroidism 56888533 E03.9 normal thyroid at last visit without taking medication s. repeat. has not taken levothyrox ine. TSH/T4: normal 04/2021 Morbid obesity 061763782 E66.01 weight today 461down 4 lbs since 01/2022. advised cutting out soda and sweet tea. increasing trulicity. She declines bariatric surgery at this time. - we have discussed diet, exercise, portion sizes.- start with 10 minutes/ day walking- if sitting in chair she should be moving her arms as this will burn calories- watch carbs, sweets, sugars Depressive disorder 2676 9007 F32.9 doing well on prozac. - advised [...] emerge). Additional ly, patient has suicide hotline #[phone].- f/u one month- call with questions Essential hypertension 30524423 I10 BP elevated at 140/88. did not [...] Advised goal for BP is <140/90 Smoker 62920781 F17.200 1/2 ppd x 1 yearadvise d quitting. she was vaping nicotine before. Musculoskeletal pain 279 518567 M79.10 chest pain on palpation. cough has improved. advised taking nsaid with food prn. [id number] BOBO CLAUDIO [facility] [address] [place] [address] 05/30/2022 10:52:04 05/30/2022 11:34:42 Diabetes mellitus 00566082 E11.9 A1C 9.4% (04/28/2022) 6.2% 04/2021, 6.4% [...] as unable to dilate eyes Morbid obesity 370107318 E66.01 weight today 444 from 461down She [...] burn calories- watch carbs, sweets, sugars Neutrophilia 600518246 D 72.0 patient will call her hematologi and re-schedul e [id number] BOBO CLAUDIO [facility] [address] [place] [address] 07/01/2022 10:39:58 07/01/2022 11:20:32 Morbid obesity 518525066 E66.01 gained 10 lbs. drinking regular soda [...] calories- watch carbs, sweets, sugars Depressive disorder 1612 9002 F32.9 stopped prozac x 4 weeks. restart. [...] one month- call with questions Diabetes mellitus 972856 09 E11.9 A1C 7.5% (06/2022) 9.4% (04/28/2022) 6.2% 04/2021, 6.4% 05/2019 . not checking glucose states she is taking weekly trulicity. medication s: farxiga 10mg, trulicity 1.5 mg q weekly Foot exam: done 04/2022, normal sensation. slightly decreased posterior pulses,pps v23: prevnar 20 01/2022Eye exam: 04/26/2022. will go back one month as unable to dilate eyes Drug abuse 55776232 F19. 10 doing cocaine and ecstasy on weekends to lose weight Suicidal thoughts 331978 6 R45.851 passive SI. denies plan to hurt self. If it wasn't for my nephews I would not be here- ER Major depr essive disorder 947025127 F32.9 depression , hopeless, loneliness , increased eating, Passive SI - declines therapy- agrees to start prozac again. discussed not stopping abruptly- SI hotline or 911 if SI [id number] BOBO CLAUDIO [facility] [address] [place] [address] 07/29/2022 11:41:14 07/29/2022 13:01:19 Hyperlipidemia 32547453 E78.5 Depressive disorder 3548 9007 F32.9 better [...] one month- call with questions Diabetes mellitus 768602 09 E11.9 A1C 7.5% (06/2022) 9.4% (04/28/2022) [...] tion of diphtheria, pertussis, and tetanus vaccine 719727230 Z23 Supraclavi cular lymphadenopathy 706358505 R59.0 Patient has right sided enlarged lymph-node . will work up [id number] BOBO CLAUDIO [facility] [address] [place] [address] 02/27/2023 09:16:23 02/27/2023 09:48:17 Acute otitis media 4709674 H66.92 pt with DM and ear pain x 3 weeksPEX: L erythemato us and retract TM, pharynx erythemato us. no sinus pain on palpation. allergy to penicillin trial doxy Diabetes mellitus 946905 09 E11.9 non compliant with f/u visits, medication s, glucose checks, diet. A1C 8.2 (02/2023) 7.5% (06/2022) 9.4% (04/28/2022) 6.2% 04/2021, 6.4% 05/2019 Medication s: trulicity 4.5mg, farxiga (not taking) Foot exam: done 04/2022, normal sensation. slightly decreased posterior pulses,Eye exam: 04/26/2022. will go back one month as unable to dilate eyesAlb/Cr : 07/2022 normalpneu monia vaccine: 02/2022 Morbid obesity 731547200 E66.01 gained 10 lbs. drinking regular soda [...] burn calories- watch carbs, sweets, sugars Hypothyroidism 73880318 E03.9 normal thyroid at last visit without taking medication s. repeat. has not taken levothyrox ine. TSH/T4: normal 04/2021 [id number] BOBO CLAUDIO [facility] [address] [place] [address] 04/27/2023 11:57:43 04/27/2023 12:53:17 Diabetes mellitus 63760351 E11.9 non compliant with f/u visits, medication s, glucose checks, diet. A1C 8.2 (02/2023) 7.5% (06/2022) 9.4% (04/28/2022) 6.2% 04/2021, 6.4% 05/2019 Medication s: trulicity 4.5mg, farxiga (not taking) Foot exam: done 04/2022, normal sensation. slightly decreased posterior pulses,Eye exam: 04/26/2022. will go back one month as unable to dilate eyesAlb/Cr : 07/2022 normalpneu monia vaccine: 02/2022 Morbid obesity 369586034 E66.01 gained 10 lbs. drinking regular soda [...] burn calories- watch carbs, sweets, sugars Hypothyroidism 21796000 E03.9 normal thyroid at last visit without taking medication s. repeat. has not taken levothyrox ine. TSH/T4: normal 04/2021 Otitis ext azucena of right ear [id number] 600703 H60.91 Depressive disorder 3548 9007 F32.9 she [...] emerge). Additional ly, patient has suicide hotline #[phone].- f/u one month- call with questions [id number] BOBO CLAUDIO [facility] [address] [place] [address] 06/06/2023 11:54:31 06/06/2023 12:45:35 Morbid obesity 114564630 E66.01 will contact bariatric surgery dept this week - we have discussed diet, exercise, portion sizes.- agrees to one mile walk daily split up, pt feels this is attainable - cut out sugary Gatorade- incorporat e more protein in diet- if sitting in chair she should be moving her arms as this will burn calories- watch carbs, sweets, sugars Depressive disorder 5046 9007 F32.9 she stopped medication again and [...] with questions Obstructiv e sleep apnea syndrome 65644213 G47.33 BMI 92.7, hx of severe sleep apnea but never got contacted for machine, gasping for air at night. snoring, daytime somnolence . Perioral dermatitis 4141 14083 L71.0 small bumps per patient picture resembling perioral dermatitis will trial metronidaz ole [id number] BOBO CLAUDIO [facility] [address] [place] [address] 07/18/2023 12:10:55 07/18/2023 12:55:50 Morbid obesity 302444995 E66.01 will contact bariatric surgery dept this [...] calories- watch carbs, sweets, sugars Depressive disorder 9147 5150 F32.9 she stopped medication again and will [...] with questions Obstructiv e sleep apnea syndrome 45298715 G47.33 BMI 94.5,sleep study completed, pending results Diabetes mellitus 537795 09 E11.9 non compliance with medication s, glucose checks, diet. A1C 8.2 (02/2023) 7.5% (06/2022) 9.4% (04/28/2022) 6.2% 04/2021, 6.4% 05/2019 Medication s: trulicity 4.5mg, farxiga (not taking) Foot exam: done 04/2022, normal sensation. slightly decreased posterior pulses,Eye exam: 04/26/2022. will go back one month as unable to dilate eyesAlb/Cr : 07/2022 normalpneu monia vaccine: 02/2022 Hyperlipidemia 42251282 E78.5 Wheezing 65583321 R06.2 advised she quit smokingamberi brenda conneruterolw ill send [facility] Essential hypertension 46130980 I10 BP elevated at 160/85. did not [...] BP Advised goal for BP is <140/90 [id number] Bong quinonez MD [facility] [address] [place] [address] 09/04/2023 11:51:47 09/16/2023 11:48:37 Morbid obesity 909749596 E66.01 will contact bariatric surgery dept this [...] calories- watch carbs, sweets, sugars Depressive disorder 9365 5542 F32.9 she stopped medication again and will [...] with questions Obstructiv e sleep apnea syndrome 21673301 G47.33 BMI 94.5,sleep study completed, pending results Diabetes mellitus 188006 09 E11.9 non compliance with medication s, glucose checks, diet. A1C 8.2 (08/2023) 8.2 (02/2023) 7.5% (06/2022) 9.4% (04/28/2022) 6.2% 04/2021, 6.4% 05/2019 Medication s: trulicity 4.5mg, farxiga (not taking) Foot exam: done 04/2022, normal sensation. slightly decreased posterior pulses,Eye exam: 04/26/2022. will go back one month as unable to dilate eyesAlb/Cr : 07/2022 normalpneu monia vaccine: 02/2022 Essential hypertension 01652627 I10 BP elevated at 160/85. did not [...] st imulating hormone level above reference range 743220938 R94.6 [id number] Avinash Rivero MD [facility] [address] [place] [address] 01/16/2024 13:55:02 01/16/2024 14:31:40 Morbid obesity 024878515 E66.01 she had bariatric appointmen t scheduled [...] calories- watch carbs, sweets, sugars Depressive disorder 6148 2693 F32.9 she stopped medication again and will [...] with questions Obstructiv e sleep apnea syndrome 29399807 G47.33 BMI 92.3sleep study completed, pending results Diabetes mellitus 848530 09 E11.9 non compliance with medication s, [...] 07/2022 normalpneu monia vaccine: 02/2022 Essential hypertension 00801602 I10 improved. needs refills Advised to check BP regularly with a goal of <140/90, if BP consistent ly >140/90, advised to contact clinic Discussed DASH diet Advised weight loss and diet is best way to control BP Advised 30 minutes of exercise minimum daily Advised tobacco, alcohol, caffeine all increase BP Advised goal for BP is <140/90 Lump in bi lateral breasts [id number] 2410712 N63.20 patient has b/l breast masses, could be fibrocysti cobtain US and mammogram Cough 01241044 R05.9 chronic coughadvis ed f/u with her pulmutd with pneumonia vaccine Supraclavi cular lymphadenopathy 804965672 R59.0 Patient has right sided enlarged lymph-node . will work up [id number] Avinash Rivero MD [facility] [address] [place] [address] 09/09/2024 08:23:28 09/09/2024 10:22:09 Morbid obesity 247618291 E66.01 following weight loss provider. Obstructiv e sleep apnea syndrome 97075903 G47.33 BMI 91.1Also states she had her cpap machine taken and needs new cpap. she has trouble with sleep and known sleep apnea. Diabetes mellitus 382286 09 E11.9 stopped farxiga and did not notify me. not checking BG. she would like insulin at this time. She cannot tolerate metofmrin. will continue GLP-1. advised stopping soda.We discussed DM as a team approach. she has to notify me if medication s are changed by other providers or if BG are high at home. A1C 10.2% (08/2024) 9.3% (12/2023 8.2 (08/2023) 8.2 (02/2023) 7.5% (06/2022) 9.4% (04/28/2022) 6.2% 04/2021, 6.4% 05/2019 Medication s: trulicity 4.5mg (having dizziness and will switch to ozempic) , farxiga (not taking) Foot exam: done 2023, normal sensation. slightly decreased posterior pulses,Eye exam: 04/26/2022. will go back one month as unable to dilate eyesAlb/Cr : 07/2022 normalpneu monia vaccine: 02/2022 Essential hypertension 53412787 I10 not controlled . increase dose to 20mg-hcz (as given to her by her weight management provider) they are checking her labs. Advised to check BP regularly with a goal of <140/90, if BP consistent ly >140/90, advised to contact clinic Discussed DASH diet Advised weight loss and diet is best way to control BP Advised 30 minutes of exercise minimum daily Advised tobacco, alcohol, caffeine all increase BP Advised goal for BP is <140/90 Candidiasis of vagina 72 192103 B37.31 [id number] Health Concerns Section Related Observation LastModified by Organization Detai ls LastModified Time None Recorded Concern Status LastModified by Organization Details LastModified Time None Recorded Advance Directives Directive None Recorded Payers Insurance Date Sequence Insurance Name Policy Number Policy Rothman Covered Member ID Rothman Member ID Guarantor Name 09/11/2024 1 [facility] (MEDICAID HMO) [id number] [facility] [place] [id number] [facility] 09/11/2024 1 [place] [facility] [place] [id number] [facility] Notes Date Note Type Note Provider Name and Address Organization Details Recorded Time 06/06/2023 text/html Sleep ProblemsRe ported by PatientSleep HPIFor general sleep, patient reportssnoring,sleep apnea,witnessed apnea,unrefreshing sleep, andexcessive sleepiness during the day (daytime somnolence). For quality, patient reportsloud snoringandgasping for air. For onset/timing, patient reportschronic. For severity, patient reportssevere. For prescribed sleep medications, patient reportsnot taking medication to help sleep. For cpap, (does not have a machiene and needs one). Claudia presents for ER f/u on depression, Sleep [...] 5-10 minutes. BOBO CLAUDIO Attn: Accounting,[address] [facility] [facility], [place], [address], [facility] 06/06/2023 14:29:37 07/18/2023 text/html Sleep ProblemsRe ported by PatientSleep HPIFor general sleep, patient reportssnoring,sleep apnea,witnessed apnea,unrefreshing sleep, andexcessive sleepiness during the day (daytime somnolence). For quality, patient reportsloud snoringandgasping for air. For onset/timing, patient reportschronic. For severity, patient reportssevere. For prescribed sleep medications, patient reportsnot taking medication to help sleep. For cpap, (does not have a machiene and needs one). Claudia presents for ER f/u on depression, Sleep [...] completed bactrim and clinda BOBO CLAUDIO Attn: Accounting, [place], [address], [facility] 07/19/2023 11:16:50 09/04/2023 text/html Claudia presents for f/u with nieces She has not taken farxiga since last month. She stopped taking prozac last month. Also not taking her lisinopril. She c/o of wheezing now. does continue to smoke. she also has sob that she attributes to weight gain. BOBO CLAUDIO Attn: Accounting, [address] [facility] [facility], [place], [address], [facility] 09/12/2023 10:18:29 01/16/2024 text/html Claudia presents for f/u for DM She has not [...] stopped it. BOBO CLAUDIO Attn: Accounting,[address] [facility], [place], [address], [facility] 01/16/2024 15:10:55 09/09/2024 text/html Claudia presents for f/u for DM She has not taken farxiga or prozac since a few months ago. my weight loss doctor told me to stop them. She say her weight loss provider to her to increase farxiga and then started having yeast infection leading her to stop them. She is not checking BG due to machine not working. She is drinking regular soda daily. says she is taking her lisinopril, and trulicity only. She has cardiology appointment coming up. Also states she had her cpap machine taken and needs new cpap. she has trouble with sleep and known sleep apnea. feels like she has a yeast infection today that did not go away. she was seen for this 08/21/24 in ER and labs were the following glucose 380, GFR>90liver labs: wnlsti panel negative BOBO CLAUDIO Attn: Accounting,[address] [facility], [place], [address], [place] [facility] 09/09/2024 10:05:21 OBGyn Episode No OBEpisode recorded.
--- OUTSIDE RECORDS SUMMARY | 2024-12-23 18:28 | XMS_ITS | Clinical Summary ---
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 Respiratory Rate - - Oxygen Saturation 96% 04/27/2021 3:04 PM 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 Inhaled Oxygen Concentration - - Weight 204.8 kg (451 lb 9.6 oz) 04/27/2021 3:04 PM CARBURETOR REPAIRER Height 149.9 cm (4' 11) 04/27/2021 3:04 PM CARBURETOR REPAIRER Body Mass Index 91.21 04/27/2021 3:04 PM 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 REPAIRER Plan of Treatment Health Maintenance Due Date Last Done Comments DIABETES ANNUAL FOOT EXAM 2010 DIABETES ANNUAL RETINAL EXAM 2010 DIABETES MICROALBUMIN ANNUAL SCREEN 2010 LDL CHOLESTEROL ANNUAL 2010 HPV/Cotest (21-29) 2013 DIABETES HBA1C Q 6 MONTHS 06/11/2016 12/12/2015 HPV VACCINES (1 - 3-dose SCD M series) 08/27/2019 CERVICAL CANCER SCREENING 2022 HPV/Cotest (30-65) 2022 PAP SMEAR 2022 INFLUENZA VACCINE (#1) 2024 11/21/2015 COVID-19 Vaccine (3 - 2024-2 6 season) 2024 10/16/2020, 09/18/2020 DTAP/TDAP/TD VACCINES (5 - T d or Tdap) 08/16/2025 08/17/2015, 07/07/1993, 02/27/1993, Additional history exists HEPATITIS B VACCINES Completed 07/07/1993, 02/27/1993, 1992, Additional history exists Insurance [place] Care Teams Caster Operator Relationship Specialty Start Date End Date Provider, Abstract NO ADDRESS ON FILE PCP - General 04/27/21
[2024-12-23 18:29] LABS: Alanine Aminotransferase 43 U/L (6-35); Albumin Level 3.9 g/dL (3.5-5.1); Alkaline Phosphatase 100 U/L (38-126); Anion Gap 6 mmol/L (4-12); Aspartate Amino Transferase 41 U/L (14-36); Bilirubin,Total 0.5 mg/dL (0.2-1.3); Blood Urea Nitrogen 13 mg/dL (7-17); Calcium 8.6 mg/dL (8.4-10.2); Carbon Dioxide 25 mmol/L (22-30); Chloride 98 mmol/L (98-107); Estimated Glomerular Filt Rate > 60; Glucose 346 mg/dL (65-110); Potassium 4.1 mmol/L (3.4-5.0); Sodium 129 mmol/L (137-145); Total Protein 6.7 g/dL (6.3-8.2)
[2024-12-23 18:40] LABS: Troponin I < 0.012 ng/mL (0.000-0.034)
[2024-12-23] MEDS: MIDAZOLAM HCL (*CRX) 2 MG/2 ML VIAL IV PUSH (19:53)
[2024-12-23] MEDS: KETOROLAC 15 MG/ML VIAL (*BKC) IV PUSH (19:54)
== END 2024-12-23 20:20 | disposition home or self-care (01) ==
PROVIDERS: Emergency Provider Emergency Medicine; PCP Physician Assistant
DX: R07.9 Chest pain, unspecified (principal); I11.0 Hypertensive heart disease with heart failure; I50.9 Heart failure, unspecified; F41.9 Anxiety disorder, unspecified; G47.30 Sleep apnea, unspecified; K21.9 Gastro-esophageal reflux disease without esophagitis; E03.9 Hypothyroidism, unspecified; E11.9 Type 2 diabetes mellitus without complications; F32.A Depression, unspecified; J45.909 Unspecified asthma, uncomplicated; F17.210 Nicotine dependence, cigarettes, uncomplicated
CPT/HCPCS: 36415; 71046; 80053; 84484; 85025; 85380; 93005; 94640; 96365; 96366; 96375; 99284; J1885; J2250; J2919; J3475